=== PATIENT | female | born 1945 | race Caucasian/White ===

== ENCOUNTER 2017-07-15 06:15 | Outpatient (CLI) | payer MEDICARE ==
[~2017-07-15] VITALS: Ht 154.9 cm; Wt 62.6 kg
[2017-07-15] MEDS ORDERED: HYDR25TA4 PO (13:54)
[2017-07-15] MEDS ORDERED: METF1000 PO (13:54)
[2017-07-15] MEDS ORDERED: LOVA40TA2 PO (13:54)
[2017-07-15] MEDS ORDERED: ALEN70TA2 PO (13:54)
[2017-07-15] MEDS ORDERED: METO-387 PO (13:54)
[2017-07-15] MEDS ORDERED: QUIN20TA16 PO (13:54)
== END 2017-07-15 14:00 ==
LOC: PREOP 06:15
PROVIDERS: ATTEND Urology
DX: Z01.818 Encounter for other preprocedural examination (principal); T19.1XXA Foreign body in bladder, initial encounter

== ENCOUNTER 2017-07-22 08:01 | Day surgery (SDC) | payer MEDICARE ==
[~2017-07-22] VITALS: Ht 154.9 cm; Wt 62.6 kg
--- NOTE | 2017-07-22 07:15 | Progress Note-Pre Operative ---
Pre-Operative Progress Note H&P Reviewed The H&P was reviewed, patient examined and no changes noted. Date Seen by Provider: Jul 22, 2017 Time Seen by Provider: : Date H&P Reviewed: Jul 22, 2017 Time H&P Reviewed: : Pre-Operative Diagnosis: FOREIGN BODY BLADDER SALTY WALTON MD Jul 22, 2017 7:15 am
[~2017-07-22 08:01] MED LIST: ALEN70TA2 PO; HYDR25TA4 PO; LOVA40TA2 PO; METF1000 PO; METO-387 PO; QUIN20TA16 PO
[2017-07-22] MEDS ORDERED: METO-370 PO (09:09)
[2017-07-22] MEDS ORDERED: NS (IVPB) 100 ML ONE (09:10)
[2017-07-22] MEDS ORDERED: cefTRIAXone 1 GM (ROCEPHIN) VIAL ONE (09:10)
[2017-07-22] MEDS ORDERED: LACTATED RINGERS 1,000 ML IV PRN (09:11)
[2017-07-22] MEDS ORDERED: cefTRIAXone INJECTION 1,000 MG in NS (IVPB) 100 ML IV ONE (09:15)
[2017-07-22 09:19] VITALS: BP 192/90
--- NOTE | 2017-07-22 09:27 | Progress Note-Post Operative ---
Post-Operative Progess Note Surgeon (s)/Disbursement Clerk (s) Surgeon SALTY WALTON MD Disbursement Clerk: N/A Pre-Operative Diagnosis FOREIGN BODY BLADDER Post-Operative Diagnosis SAME Procedure & Operative Findings Date of Procedure 07/22/17 Procedure Performed/Findings REMOVAL OF FB BLADDER Anesthesia Type GENERAL Estimated Blood Loss Estimated blood loss (mL): N/A Specimens/Packing Specimens Removed SUTURE Packing: N/A SALTY WALTON MD Jul 22, 2017 9:27 am
[2017-07-22] MEDS ORDERED: ONDANSETRON 4 MG/2 ML (SDV) Z0FRAN ONE (09:43)
[2017-07-22] MEDS ORDERED: LIDOCAINE PF 2% 5 ML (XYLOCAINE) VIAL ONE (09:43)
[2017-07-22] MEDS ORDERED: proPOfol 200 MG/20 ML (DIPRIVAN) VIAL IV ONE (09:43)
[2017-07-22] MEDS ORDERED: SEVOFLURANE (ULTANE) 15 ML INHAL SOLN ONE (09:43)
[2017-07-22] MEDS ORDERED: fentaNYL INJECTION 100 MCG/2 ML AMP ONE (09:44)
--- NOTE | 2017-07-22 10:27 | Discharge Inst-Urology ---
Discharge Inst-Urology Discharge Medications New, Converted, or Re-newed RX: RX on Chart Patient Instructions/Follow Up Plan Please make appointment to been seen in office in 4 weeks. Increase oral fluids for 48 hours and then as needed. Diet and Activity as tolerated. If questions or concerns contact your physician Or seek help at emergency department. SALTY WALTON MD Jul 22, 2017 10:27 am
[2017-07-22] MEDS ORDERED: ONDANSETRON 4 MG/2 ML (SDV) Z0FRAN IVP PRN (11:00)
[2017-07-22] MEDS ORDERED: morphine INJ 10 MG/ML 1ML (SYR OR VIAL) IVP PRN (11:00)
[2017-07-22 11:45] VITALS: BP 182/80
[2017-07-22] MEDS ORDERED: NITR-65 PO (12:12)
[2017-07-22 12:15] VITALS: BP 164/84
[2017-07-22 12:45] VITALS: BP 180/91
[2017-07-22 12:47] VITALS: BP 180/91
--- NOTE | 2017-07-22 13:08 | Anesthesia-General Post-Op ---
General Patient Condition Mental Status/LOC: Same as Preop Cardiovascular: Satisfactory Nausea/Vomiting: Absent Respiratory: Satisfactory Pain: Controlled Complications: Absent Post Op Complications Complications None Follow Up Care/Instructions Patient Instructions None needed. Anesthesia/Patient Condition Patient Condition Patient is doing well, no complaints, stable vital signs, no apparent adverse anesthesia problems. No complications reported per nursing. CANDY SMITH CRNA Jul 22, 2017 13:08
--- NOTE | 2017-07-22 14:44 | OPERATIVE REPORT ---
DATE OF SERVICE: 07/22/2017 PREOPERATIVE DIAGNOSIS: Foreign body, bladder. POSTOPERATIVE DIAGNOSIS: Foreign body, bladder. OPERATION PERFORMED: Cystoscopy and removal of foreign body, bladder. SURGEON: Kai Walton MD. ANESTHESIA: General. COMPLICATIONS: None. DESCRIPTION OF PROCEDURE: Under satisfactory general anesthesia, the patient in lithotomy position, genitalia were prepped and draped in the usual sterile fashion. Cystoscope was introduced under vision and again visualized the previous bladder suspension suture in the anterior bladder wall on the right side, which did not protruding through the wall on the lower part. I was able to grab it with a grasping forceps and gently pulled it off completely including the knot. There were no further sutures or foreign body. There was no bleeding. I emptied her bladder. The patient tolerated the procedure and anesthesia well and was sent to recovery room in stable condition. Job ID: [id number] DocumentID: [id number] Dictated Date: 07/22/2017 10:40:19 Billing Machine Operator Date: 07/22/2017 14:43:38 Dictated By: KAI WALTON MD
--- OUTSIDE RECORDS SUMMARY | 2017-07-23 09:10 | XMS REPORT | Clinical Summary ---
Author Author Admin, IMTIAZ Organization [facility] Address Unknown Phone Unavailable Allergies, Adverse Reactions, Alerts Allergy Name Reaction Description Start Date Severity Status Provider No Known Allergies Madiha Melendez MA Conditions or Problems Problem Name Problem Code Onset Date Status Entry Date Provider Comment Standard Description Annotate HYPERTENSION 401.9 Active Nadir Hector MD Unspecified essential hypertension DIABETES MELLITUS 250.00 Active Nadir Hector MD Diabetes mellitus without mention of complication, type II or unspecified type, not stated as uncontrolled HYPERLIPIDEMIA 272.4 Active Nadir Hector MD Other and unspecified hyperlipidemia HEALTH MAINTENANCE EXAM V70.0 Active Nadir Hector MD Routine general medical examination at a [facility] care facility PERIPHERAL NEUROPATHY 356.9 Active Nadir Hector MD Unspecified idiopathic peripheral neuropathy Right foot HEADACHE, CHRONIC 784.0 Active Nadir Hector MD Headache DYSURIA 788.1 Active Nadir Hector MD Dysuria UTI'S, HX OF V13.00 Active Nadir Hector MD Personal history of unspecified urinary disorder MAMMOGRAM, ABNORMAL 793.80 Active Nadir Hector MD Abnormal mammogram, unspecified COLONIC POLYPS, HX OF V12.72 Active Crystal Fernández APRN Personal history of colonic polyps UTERINE PROLAPSE 618.1 Active Catalino Irene MD Uterine prolapse without mention of vaginal wall prolapse U T I-RECURRENT 599.0 Active Catalino Irene MD Urinary tract infection, site not specified 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 Catalino Irene MD Methicillin resistant Staphylococcus aureus infection in conditions classified elsewhere and of unspecified site AFTERCARE FOLLOW SURGERY MUSCULOSKEL SYSTEM NEC V58.78 Active Crystal King CESAR Aftercare following surgery of the musculoskeletal system, NEC HIP PAIN 719.45 Active Nadir Hector MD Pain in joint involving pelvic region and thigh OSTEOARTHRITIS 715.90 Active Nadir Hector MD Osteoarthrosis, unspecified whether generalized or localized, involving unspecified site BACK PAIN 724.5 Active Nadir Hector MD Backache, unspecified Sinusitis 461.9 Active Nadir Hector MD Acute sinusitis, unspecified Menopause, surgical 627.4 Active Jocelyne Fernández Symptomatic states associated with artificial menopause Urinary tract infection, site not specified 599.0 Active Judd Maciel Urinary tract infection, site not specified Medication List Medication Instructions Start Date Stop Date Generic Name NDC Status Provider Patient Instruction BACTRIM DS TABS Take 1 po BID SULFAMETHOXAZOLE- TRIMETHOPRIM TABS 05344840425 Active Pam Gomez LPN Active MACROBID 100 MG CAP 1 cap by mouth twice daily NITROFURANTOIN MONOHYD MACRO 01325853999 No Longer Active Pam Gomez LPN Active DIFLUCAN 150 MG TAB 1 tablet by mouth daily FLUCONAZOLE 11845349474 Active Pam Gomez LPN Active CIPRO 250 MG TAB 1 tablet by mouth twice daily CIPROFLOXACIN HCL 04761317204 No Longer Active Pam Gomez LPN Active JANUVIA 100 MG ORAL TABS 1 daily SITAGLIPTIN PHOSPHATE 75875775802 Active Nadir Hector MD Active GLUCOTROL XL 5 MG [id number] one tablet daily GLIPIZIDE 69478181274 No Longer Active Nadir Hector MD Active BACTRIM DS 800-160 MG TABS 1 po BID x 7 days SULFAMETHOXAZOLE-TRIMETHOPRIM 77478100768 No Longer Active Jamal Burrell MD Active FOSAMAX 70 MG TABS 1 po qweek. Take 30min prior to first food/drink. Avoid lying down x 1 hour. ALENDRONATE SODIUM 51344640575 Active Nadir Hector MD Active AMOXICILLIN 500 MG CAPS 2 po BID x 10 days AMOXICILLIN 61887768022 No Longer Active Nadir Hector MD Active JANUVIA 100 MG TABS 1 tablet by mouth daily SITAGLIPTIN PHOSPHATE 16629994683 No Longer Active Nadir Hector MD Active JANUVIA 100 MG TABS Take 1 tab daily SITAGLIPTIN PHOSPHATE 53066838062 No Longer Active Sharon Nuñez Active MACROBID 100 MG CAP 1 cap by mouth twice daily NITROFURANTOIN MONOHYD MACRO 24874916735 No Longer Active Crystal Fernández APRN Active MACRODANTIN 100 MG CAPS 1 capsule by mouth twice daily for seven days NITROFURANTOIN MACROCRYSTAL 54375693811 No Longer Active Ro Yang RN Active BACTRIM DS 800-160 MG TABS one tablet twice a day for seven days SULFAMETHOXAZOLE-TRIMETHOPRIM 20628236901 No Longer Active HEMANTH Griffin Active BACTRIM DS 800-160 MG TABS TAKE ONE TABLET BY MOUTH TWICE DAILY FOR 7 DAYS SULFAMETHOXAZOLE-TRIMETHOPRIM 01396101812 No Longer Active Viviana Lal RN Active CIPRO 250 MG TABS TAKE ONE TABLET BY MOUTH TWICE DAILY FOR 5 DAYS CIPROFLOXACIN HCL 86061100469 No Longer Active Viviana Lal RN Active FLEXERIL 10 MG TABS 1/2 TO 1 TABLET Q12H NEEDED CYCLOBENZAPRINE HCL 31800444644 No Longer Active Viviana Lal RN Active AMLODIPINE BESYLATE 5 MG TABS 1 1/2 daily AMLODIPINE BESYLATE 25069102562 Active Nadir Hector MD Active ONGLYZA 5 MG TABS 1 QAM SAXAGLIPTIN HCL 57907685536 No Longer Active Nadir Hector MD Active AMLODIPINE BESYLATE 5 MG TABS 1 1/2 TABLET DAILY AMLODIPINE BESYLATE 41314860678 No Longer Active Nadir Hector MD Active LORTAB 5-500 MG TABS 1 BY MOUTH Q6H NEEDED HYDROCODONE- ACETAMINOPHEN 83416106798 No Longer Active Nadir Hector MD Active ACTOS 45 MG TABS 1 QD PIOGLITAZONE HCL 95778800856 No Longer Active Nadir Hector MD Active BACTRIM DS 800-160 MG TAB 1 tab by mouth twice daily TRIMETHOPRIM-SULFAMETHOXAZOLE 19709744809 No Longer Active Nadir Hector MD Active CALCIUM + D 600-200 MG-UNIT TABS 1 TABLET TWO TIMES A DAY CALCIUM CARBONATE-VITAMIN D 63305221813 Active Ro Yang RN Active METOPROLOL SUCCINATE 25 MG [id number] 1 QAM METOPROLOL SUCCINATE 68462964029 Active Nadir Hector MD Active AMARYL 4 MG TABS 1 QD GLIMEPIRIDE 55036436076 Active Nadir Hector MD Active LOVASTATIN 40 MG TABS 1 QD LOVASTATIN 82636852617 Active Nadir Hector MD Active GLUCOPHAGE 1000 MG TABS 1 TABLET TWO TIMES A DAY METFORMIN HCL 10441867123 Active Nadir Hector MD Active MAXZIDE-25 37.5-25 MG TABS 1 QD TRIAMTERENE-HCTZ 17181051044 Active Nadir Hector MD Active ACCUPRIL 40 MG TABS 1 QD QUINAPRIL HCL 32644735118 Active Nadir Hector MD Active BACTRIM DS 800-160 MG TAB 1 tab by mouth twice daily BACTRIM DS 800-160 MG TAB TRIMETHOPRIM-SULFAMETHOXAZOLE Inactive ACTOS 45 MG TABS 1 QD ACTOS 45 MG TABS 135796 PIOGLITAZONE HCL Inactive LORTAB 5-500 MG TABS 1 BY MOUTH Q6H NEEDED LORTAB 5-500 MG TABS HYDROCODONE-ACETAMINOPHEN Inactive AMLODIPINE BESYLATE 5 MG TABS 1 1/2 TABLET DAILY AMLODIPINE BESYLATE 5 MG TABS 299339 AMLODIPINE BESYLATE Inactive ONGLYZA 5 MG TABS 1 QAM ONGLYZA 5 MG TABS SAXAGLIPTIN HCL Inactive FLEXERIL 10 MG TABS 1/2 TO 1 TABLET Q12H NEEDED FLEXERIL 10 MG TABS CYCLOBENZAPRINE HCL Inactive CIPRO 250 MG TABS TAKE ONE TABLET BY MOUTH TWICE DAILY FOR 5 DAYS CIPRO 250 MG TABS 19740413 CIPROFLOXACIN HCL Inactive BACTRIM DS 800-160 MG TABS TAKE ONE TABLET BY MOUTH TWICE DAILY FOR 7 DAYS BACTRIM DS 800-160 MG TABS SULFAMETHOXAZOLE-TRIMETHOPRIM Inactive BACTRIM DS 800-160 MG TABS one tablet twice a day for seven days BACTRIM DS 800-160 MG TABS SULFAMETHOXAZOLE-TRIMETHOPRIM Inactive MACROBID 100 MG CAP 1 cap by mouth twice daily MACROBID 100 MG CAP 382687 NITROFURANTOIN MONOHYD MACRO Inactive JANUVIA 100 MG TABS Take 1 tab daily JANUVIA 100 MG TABS SITAGLIPTIN PHOSPHATE Inactive GLUCOTROL XL 5 MG [id number] one tablet daily GLUCOTROL XL 5 MG [id number] GLIPIZIDE Inactive MACRODANTIN 100 MG CAPS 1 capsule by mouth twice daily for seven days MACRODANTIN 100 MG CAPS 353852 NITROFURANTOIN MACROCRYSTAL Inactive AMOXICILLIN 500 MG CAPS 2 po BID x 10 days AMOXICILLIN 500 MG CAPS 519907 AMOXICILLIN Inactive BACTRIM DS 800-160 MG TABS 1 po BID x 7 days BACTRIM DS 800-160 MG TABS SULFAMETHOXAZOLE-TRIMETHOPRIM Inactive CIPRO 250 MG TAB 1 tablet by mouth twice daily CIPRO 250 MG TAB 19740413 CIPROFLOXACIN HCL Inactive MACROBID 100 MG CAP 1 cap by mouth twice daily MACROBID 100 MG CAP 082165 NITROFURANTOIN MONOHYD MACRO Inactive Advance Directives Directive Description Start Date PERMISSION TO SHARE Immunizations Vaccine Administration Date Value Standard Description pneumococcal immunization administered Pneumovax 23 [CVX33] pneumococcal polysaccharide vaccine, 23 valent Seasonal influenza vaccine, injectable, containing preservative, for > 3 years old (Afluria, FluLaval, Fluzone, Fluvirin, Fluarix, Agriflu(>=18 yo)) Fluzone (>3 yrs.) [IMO003] Influenza, seasonal, injectable Vital Signs Date Name Value Unit Range Description blood pressure, diastolic - 8462-4 72 mm[Hg] BP tyler blood pressure, systolic - 8480-6 177 mm[Hg] BP sys pulse rate E&M - 8867-4 102 /min Heart rate temperature E&M 97.9 [degF] Body temperature weight E&M - 3141-9 157 [lb_av] Weight Measured blood pressure, diastolic - 8462-4 89 mm[Hg] BP tyler blood pressure, systolic - 8480-6 158 mm[Hg] BP sys pulse rate E&M - 8867-4 89 /min Heart rate temperature E&M 98.2 [degF] Body temperature weight E&M - 3141-9 157 [lb_av] Weight Measured Diagnostic Results Date Name Value Unit Range Description Lab Report: CBC, MICROALBUMIN - Chemistry albumin/creatinine ratio, urine 30 - 300 mg/g mg/g{creat} 0-29 Lab Report: CBC, MICROALBUMIN - Hematology leukocyte count, blood 5.8 10^3/MM^3 10*3/mm3 4.6-10.2 erythrocyte (RBC) count 4.43 10^6/MM^3 10*6/mm3 4.04-5.48 hemoglobin, blood 14.1 g/dL 12.0-16.0 hematocrit, blood 42.1 % 36.0-46.0 mean corpuscular volume, RBC 95 fL 80-97 mean corpuscular hemoglobin, RBC 31.7 pg 27.0-31.2 mean corpuscular hemoglobin concentration, RBC 33.4 G/DL % 31.8- 35.4 red blood cell distribution width 13.8 % 11.6-14.8 platelet count 365 10^3/MM^3 10*3/mm3 142-424 Lab Report: CBC, MICROALBUMIN - Lab microalbumin, urine 150 0-19 Lab Report: Comp. Metabolic Panel, HGBA1C - Chemistry sodium, serum 140 mmol/L 616-024 0887/07/23 potassium, serum 4.5 mmol/L 3.5-5.2 chloride, serum 104 mmol/L 98-107 carbon dioxide, venous blood 30.0 mmol/L 21.0-32.0 blood glucose 151 mg/dL 65-110 urea nitrogen, blood 19 mg/dL 7-18 creatinine, serum 0.80 mg/dL 0.60-1.30 alanine aminotransferase (SGPT), serum 34 U/L 12-78 aspartate aminotransferase (SGOT), serum 18 U/L 15-37 alkaline phosphatase, serum 133 U/L 50-136 calcium, serum 9.4 mg/dL 8.5-10.1 bilirubin, serum, total 0.20 mg/dL 0.00-1.00 hemoglobin A1C, blood, as % of total hemoglobin 7.2 % 4.3-6.0 Lab Report: HGBA1C - Chemistry hemoglobin A1C, blood, as % of total hemoglobin 7.0 % 4.3-6.0 hemoglobin A1C, blood, as % of total hemoglobin 7.7 % 4.3-6.0 hemoglobin A1C, blood, as % of total hemoglobin 7.1 % 4.3-6.0 Lab Report: UADIP W/MICRO, AUTO - Chemistry RBC, urine, dipstick 1+ Negative protein, total urine random Trace mg/dL Negative RBC, urine, dipstick 3+ Negative protein, total urine random 3+ mg/dL Negative protein, total urine random 2+ mg/dL Negative protein, total urine random 2+ mg/dL Negative RBC, urine, dipstick 1+ Negative RBC, urine, dipstick 3+ Negative Lab Report: UADIP W/MICRO, AUTO - Urinalysis urobilinogen, urine, semiquantitative (dipstick) 0.2 Normal leukocyte esterase, urine, by dipstick 2+ Negative nitrite, urine, semiquantitative Negative Negative urobilinogen, urine, semiquantitative (dipstick) 0.2 Normal leukocyte esterase, urine, by dipstick 1+ Negative nitrite, urine, semiquantitative Positive Negative glucose, urine, semiquantitative Negative Negative ketones, urine, by test strip Trace Negative bilirubin, urine Negative Negative urine color Yellow Colorless;Lightyellow;Straw;Yellow appearance, urine SlCloudy Clear specific gravity, urine 1.025 1.000-1.030 pH, urine, semiquantitative 6.0 5.0-8.5 glucose, urine, semiquantitative Negative Negative ketones, urine, by test strip Negative Negative bilirubin, urine Negative Negative glucose, urine, semiquantitative Negative Negative ketones, urine, by test strip Negative Negative bilirubin, urine Negative Negative urobilinogen, urine, semiquantitative (dipstick) 0.2 Normal leukocyte esterase, urine, by dipstick 3+ Negative nitrite, urine, semiquantitative Negative Negative urine color Yellow Colorless;Lightyellow;Straw;Yellow appearance, urine Cloudy Clear specific gravity, urine 1.025 1.000-1.030 pH, urine, semiquantitative 6.0 5.0-8.5 glucose, urine, semiquantitative Negative Negative ketones, urine, by test strip Negative Negative bilirubin, urine Negative Negative urine color Yellow Colorless;Lightyellow;Straw;Yellow appearance, urine Clear Clear specific gravity, urine 1.025 1.000-1.030 pH, urine, semiquantitative 6.0 5.0-8.5 urobilinogen, urine, semiquantitative (dipstick) 0.2 Normal leukocyte esterase, urine, by dipstick Trace Negative nitrite, urine, semiquantitative Negative Negative urine color Light yellow Colorless;Lightyellow;Straw;Yellow appearance, urine Cloudy Clear specific gravity, urine 1.030 1.000-1.030 pH, urine, semiquantitative 6.5 5.0-8.5 Encounters Code Encounter Date Provider Facility CPT-03260 Level 3 Est. Patient 16:43:04 [employer] AR[employer] Nadir Hector MD [facility] CPT-66343 Level 4 Est. Patient 14:21:01 [employer] Nadir Hector MD [facility] CPT-53017 Level 3 Est. Patient 16:41:34 CDT Nadir Hector MD [facility] CPT-66714 Level 4 Est. Patient 13:54:35 [employer] Nadir Hector MD [facility] CPT-24557 Level 3 Est. Patient 15:51:21 CDT Nadir Hector MD [facility] CPT-66382 Level 4 New Patient 15:58:26 CDT Catalino Irene MD [facility] CPT-06938 Level 4 Est. Patient 15:42:38 [employer] Nadir Hector MD [facility] Procedures Code Procedure Name Date Entry Date Standard Description CPT-000 Give Pneumovax 14:21:01 [employer] CPT-000 Give Appropriate Flu Vaccine 14:21:01 [employer] CPT-58410 Bone Density 08:41:23 [employer] CPT-000 Give Appropriate Flu Vaccine 13:54:35 [employer] CPT-000 Give Pneumovax 13:54:35 [employer] CPT-11306 Administration 2+ single or combination vaccines inc oral 14:01:24 [employer] CPT-59735 Administration single or combination vaccine inc oral 14 :01:24 [employer] CPT-83692 Influenza High Dose age 65+ 14:01:24 [employer] CPT-76632 Pneumovax 14:01:24 [employer] CPT-41174 Venipuncture Draw Fee 10:36:48 CDT CPT-000 Give Appropriate Flu Vaccine 15:20:11 [employer] CPT-28187 Administration single or combination vaccine inc oral 15 :50:33 [employer] CPT-06581 Influenza High Dose age 65+ 15:50:33 [employer] CPT-61859 LS spine AP and Lat 15:30:05 [employer] CPT-69876 Hip comp min 2V 15:30:05 [employer] CPT-98428 Postop F/U Visit 17:28:18 CDT CPT-OV Office Visit 15:04:38 CDT CPT-75408 Bladder Scan 15:58:26 CDT CPT-80282 Cystoscopy 15:58:26 CDT CPT-OV Office Visit 16:15:09 CDT CPT-000 Give Appropriate Flu Vaccine 16:33:10 [employer] CPT-17858 Administration single or combination vaccine inc oral 19 :21:12 [employer] CPT-50443 Influenza split virus > age 3 19:21:12 [employer]
--- OUTSIDE RECORDS SUMMARY | 2017-07-23 09:11 | XMS REPORT | Clinical Summary ---
Author Author Admin, IMTIAZ Organization [facility] Address Unknown Phone Unavailable Allergies, Adverse Reactions, Alerts Allergy Name Reaction Description Start Date Severity Status Provider No Known Allergies Pam Gomez LPN Conditions or Problems Problem Name Problem Code [...] MD Routine general medical examination at a health care facility PERIPHERAL NEUROPATHY 356.9 Active Nadir [...] SURGERY MUSCULOSKEL SYSTEM NEC V58.78 Active Crystal Fernández APRN Aftercare following surgery of the musculoskeletal system, NEC HIP PAIN 719.45 Active Nadir Hector MD Pain in joint involving pelvic region and thigh OSTEOARTHRITIS 715.90 Active Nadir Hector MD Osteoarthrosis, unspecified whether generalized or localized, involving unspecified site BACK PAIN 724.5 Active Nadir Hector MD Backache, unspecified Sinusitis 461.9 Active Nadir Hector MD Acute sinusitis, unspecified Menopause, surgical 627.4 Active [facility] Symptomatic states associated with artificial menopause Urinary tract infection, site not specified 599.[address] Urinary tract infection, site not specified Bladder Prolapse 596.9 Active Catalino Irene MD Unspecified disorder of bladder U T I-Recurrent 599.0 Active Catalino Irene MD Urinary tract infection, site not specified Incomplete Bladder Emptying 788.21 Active Catalino Irene MD Incomplete bladder emptying Hematuria 599.70 Active Catalino Irene MD Hematuria, unspecified Medication List Medication Instructions Start Date Stop Date Generic Name NDC Status Provider Patient Instruction DIFLUCAN 150 MG TAB 1 tablet by mouth daily FLUCONAZOLE 64502207986 No Longer Active Nadir Hector MD Active BACTRIM DS 800-160 MG ORAL TABS 1 BID for 5 days SULFAMETHOXAZOLE-TRIMETHOPRIM 11515552881 No Longer Active Nadir Hector MD Active CIPRO 250 MG TAB 1 tablet by mouth twice daily CIPROFLOXACIN HCL 05971502136 No Longer Active Ro Meyer Active AMOXICILLIN 500 MG ORAL CAPS tid AMOXICILLIN 98402827692 No Longer Active Catalino Irene MD Active BACTRIM DS TABS Take 1 po BID SULFAMETHOXAZOLE- TRIMETHOPRIM TABS 16602781051 No Longer Active Pam Gomez LPN Active MACROBID 100 MG CAP 1 cap by mouth twice daily NITROFURANTOIN MONOHYD MACRO 76102125828 No Longer Active Pam Gomez LPN Active CIPRO 250 MG TAB 1 tablet by mouth twice daily CIPROFLOXACIN HCL 74011587835 No Longer Active Pam Gomez LPN Active JANUVIA 100 MG ORAL TABS 1 daily SITAGLIPTIN PHOSPHATE 45842609599 Active Nadir Hector MD Active GLUCOTROL XL 5 MG [id number] one tablet daily GLIPIZIDE 23825239105 No Longer Active Nadir Hector MD Active BACTRIM DS 800-160 MG TABS 1 po BID x 7 days SULFAMETHOXAZOLE-TRIMETHOPRIM 52955206271 No Longer Active Jamal Burrell MD Active FOSAMAX 70 MG TABS 1 po qweek. Take 30min prior to first food/drink. Avoid lying down x 1 hour. ALENDRONATE SODIUM 64759549790 Active Nadir Hector MD Active AMOXICILLIN 500 MG CAPS 2 po BID x 10 days AMOXICILLIN 37188655925 No Longer Active Nadir Hector MD Active JANUVIA 100 MG TABS 1 tablet by mouth daily SITAGLIPTIN PHOSPHATE 28640730087 No Longer Active Nadir Hector MD Active JANUVIA 100 MG TABS Take 1 tab daily SITAGLIPTIN PHOSPHATE 34383071979 No Longer Active Sharon Nuñez Active MACROBID 100 MG CAP 1 cap by mouth twice daily NITROFURANTOIN MONOHYD MACRO 10934844989 No Longer Active Crystal Fernández APRN Active MACRODANTIN 100 MG CAPS 1 capsule by mouth twice daily for seven days NITROFURANTOIN MACROCRYSTAL 01715757140 No Longer Active Ro Trey RN Active BACTRIM DS 800-160 MG TABS one tablet twice a day for seven days SULFAMETHOXAZOLE-TRIMETHOPRIM 63071454253 No Longer Active HEMANTH Griffin Active BACTRIM DS 800-160 MG TABS TAKE ONE TABLET BY MOUTH TWICE DAILY FOR 7 DAYS SULFAMETHOXAZOLE-TRIMETHOPRIM 32097330099 No Longer Active Viviana Lal RN Active CIPRO 250 MG TABS TAKE ONE TABLET BY MOUTH TWICE DAILY FOR 5 DAYS CIPROFLOXACIN HCL 58502597674 No Longer Active Viviana Lal RN Active FLEXERIL 10 MG TABS 1/2 TO 1 TABLET Q12H NEEDED CYCLOBENZAPRINE HCL 83947742016 No Longer Active Viviana Lal RN Active AMLODIPINE BESYLATE 5 MG TABS 1 1/2 daily AMLODIPINE BESYLATE 70465891567 Active Nadir Hector MD Active ONGLYZA 5 MG TABS 1 QAM SAXAGLIPTIN HCL 34843726067 No Longer Active Nadir Hector MD Active AMLODIPINE BESYLATE 5 MG TABS 1 1/2 TABLET DAILY AMLODIPINE BESYLATE 48376998750 No Longer Active Nadir Hector MD Active LORTAB 5-500 MG TABS 1 BY MOUTH Q6H NEEDED HYDROCODONE- ACETAMINOPHEN 00376429761 No Longer Active Nadir Hector MD Active ACTOS 45 MG TABS 1 QD PIOGLITAZONE HCL 24525828580 No Longer Active Nadir Hector MD Active BACTRIM DS 800-160 MG TAB 1 tab by mouth twice daily TRIMETHOPRIM-SULFAMETHOXAZOLE 36485177064 No Longer Active Nadir Hector MD Active CALCIUM + D 600-200 MG-UNIT TABS 1 TABLET TWO TIMES A DAY CALCIUM CARBONATE-VITAMIN D 78811452865 Active Ro Yang RN Active METOPROLOL SUCCINATE 25 MG [id number] 1 QAM METOPROLOL SUCCINATE 84307227925 Active Nadir Hector MD Active AMARYL 4 MG TABS 1 QD GLIMEPIRIDE 14441108263 Active Nadir Hector MD Active LOVASTATIN 40 MG TABS 1 QD LOVASTATIN 66277693882 Active Nadir Hector MD Active GLUCOPHAGE 1000 MG TABS 1 TABLET TWO TIMES A DAY METFORMIN HCL 28128819360 Active Nadir Hector MD Active MAXZIDE-25 37.5-25 MG TABS 1 QD TRIAMTERENE-HCTZ 34946500266 Active Nadir Hector MD Active ACCUPRIL 40 MG TABS 1 QD QUINAPRIL HCL 45298382491 Active Nadir Hector MD Active BACTRIM DS 800-160 MG TAB 1 tab by mouth twice daily BACTRIM DS 800-160 MG TAB TRIMETHOPRIM-SULFAMETHOXAZOLE Inactive ACTOS 45 MG TABS 1 QD ACTOS 45 MG TABS 956076 PIOGLITAZONE HCL Inactive LORTAB 5-500 MG TABS 1 BY MOUTH Q6H NEEDED LORTAB 5-500 MG TABS HYDROCODONE-ACETAMINOPHEN Inactive AMLODIPINE BESYLATE 5 MG TABS 1 1/2 TABLET DAILY AMLODIPINE BESYLATE 5 MG TABS 088083 AMLODIPINE BESYLATE Inactive ONGLYZA 5 MG TABS 1 QAM ONGLYZA 5 MG TABS SAXAGLIPTIN HCL Inactive FLEXERIL 10 MG TABS 1/2 TO 1 TABLET Q12H NEEDED FLEXERIL 10 MG TABS CYCLOBENZAPRINE HCL Inactive CIPRO 250 MG TABS TAKE ONE TABLET BY MOUTH TWICE DAILY FOR 5 DAYS CIPRO 250 MG TABS 023420 CIPROFLOXACIN HCL Inactive BACTRIM DS 800-160 MG TABS TAKE ONE TABLET BY MOUTH TWICE DAILY FOR 7 DAYS BACTRIM DS 800-160 MG TABS SULFAMETHOXAZOLE-TRIMETHOPRIM Inactive BACTRIM DS 800-160 MG TABS one tablet twice a day for seven days BACTRIM DS 800-160 MG TABS SULFAMETHOXAZOLE-TRIMETHOPRIM Inactive MACROBID 100 MG CAP 1 cap by mouth twice daily MACROBID 100 MG CAP 8129822 NITROFURANTOIN MONOHYD MACRO Inactive JANUVIA 100 MG TABS Take 1 tab daily JANUVIA 100 MG TABS SITAGLIPTIN PHOSPHATE Inactive GLUCOTROL XL 5 MG [id number] one tablet daily GLUCOTROL XL 5 MG [id number] GLIPIZIDE Inactive BACTRIM DS 800-160 MG ORAL TABS 1 BID for 5 days BACTRIM DS 800-160 MG ORAL TABS SULFAMETHOXAZOLE-TRIMETHOPRIM Inactive DIFLUCAN 150 MG TAB 1 tablet by mouth daily DIFLUCAN 150 MG TAB 676966 FLUCONAZOLE Inactive MACRODANTIN 100 MG CAPS 1 capsule by mouth twice daily for seven days MACRODANTIN 100 MG CAPS 2815300 NITROFURANTOIN MACROCRYSTAL Inactive AMOXICILLIN 500 MG CAPS 2 po BID x 10 days AMOXICILLIN 500 MG CAPS 020343 AMOXICILLIN Inactive BACTRIM DS 800-160 MG TABS 1 po BID x 7 days BACTRIM DS 800-160 MG TABS SULFAMETHOXAZOLE-TRIMETHOPRIM Inactive CIPRO 250 MG TAB 1 tablet by mouth twice daily CIPRO 250 MG TAB 672489 CIPROFLOXACIN HCL Inactive MACROBID 100 MG CAP 1 cap by mouth twice daily MACROBID 100 MG CAP 1319464 NITROFURANTOIN MONOHYD MACRO Inactive BACTRIM DS TABS Take 1 po BID BACTRIM DS TABS SULFAMETHOXAZOLE-TRIMETHOPRIM TABS Inactive AMOXICILLIN 500 MG ORAL CAPS tid AMOXICILLIN 500 MG ORAL CAPS 033983 AMOXICILLIN Inactive CIPRO 250 MG TAB 1 tablet by mouth twice daily CIPRO 250 MG TAB 163444 CIPROFLOXACIN HCL Inactive Advance Directives Directive Description Start Date PERMISSION TO SHARE Immunizations Vaccine Administration Date Value Standard Description pneumococcal immunization administered Pneumovax 23 [CVX33] pneumococcal polysaccharide vaccine, 23 valent Seasonal influenza vaccine, injectable, containing preservative, for > 3 years old (Afluria, FluLaval, Fluzone, Fluvirin, Fluarix, Agriflu(>=18 yo)) Fluzone (>3 yrs.) [SJH074] Influenza, seasonal, injectable Vital Signs Date Name Value Unit Range Description blood pressure, diastolic - 8462-4 76 mm[Hg] BP tyler blood pressure, systolic - 8480-6 133 mm[Hg] BP sys pulse rate E&M - 8867-4 79 /min Heart rate temperature E&M 97.8 [degF] Body temperature weight E&M - 3141-9 162.2 [lb_av] Weight Measured blood pressure, diastolic - 8462-4 75 mm[Hg] BP tyler blood pressure, systolic - 8480-6 146 mm[Hg] BP sys temperature E&M 97.7 [degF] Body temperature weight E&M - 3141-9 157 [lb_av] Weight Measured blood pressure, diastolic - 8462-4 72 mm[Hg] [...] Name Value Unit Range Description Lab Report: Basic Metabolic Panel - Chemistry sodium, serum 138 mmol/L 511-720 3384/07/02 potassium, serum 4.5 mmol/L 3.5-5.2 chloride, serum 101 mmol/L 98-107 carbon dioxide, venous blood 29.1 mmol/L 21.0-32.0 blood glucose 89 mg/dL 65-110 calcium, serum 9.7 mg/dL 8.5-10.1 urea nitrogen, blood 18 mg/dL 7-18 creatinine, serum 0.90 mg/dL 0.60-1.30 Lab Report: CBC, MICROALBUMIN - Chemistry albumin/creatinine [...] Lab microalbumin, urine 150 0-19 Lab Report: HGBA1C - Chemistry hemoglobin A1C, blood, as % of total hemoglobin 7.0 % 4.3-6.0 hemoglobin A1C, blood, as % of total hemoglobin 7.7 % 4.3-6.0 hemoglobin A1C, blood, as % of total hemoglobin 7.1 % 4.3-6.0 Lab Report: Lipid Panel, Comp. Metabolic Panel, HGBA1C - Chemistry cholesterol, serum 147 mg/dL 889-671 2968/08/18 triglyceride, serum, fasting 242 mg/dL 30-200 HDL cholesterol, serum 36 mg/dL 32-96 LDL cholesterol, serum 63 mg/dL 0-130 sodium, serum 137 mmol/L 914-793 2501/08/18 potassium, serum 4.7 mmol/L 3.5-5.2 chloride, serum 102 mmol/L 98-107 carbon dioxide, venous blood 28.5 mmol/L 21.0-32.0 blood glucose 131 mg/dL 65-110 urea nitrogen, blood 17 mg/dL 7-18 creatinine, serum 0.90 mg/dL 0.60-1.30 alanine aminotransferase (SGPT), serum 26 U/L 12-78 aspartate aminotransferase (SGOT), serum 18 U/L 15-37 calcium, serum 9.4 mg/dL 8.5-10.1 bilirubin, serum, total 0.30 mg/dL 0.00-1.00 hemoglobin A1C, blood, as % of total hemoglobin 7.0 % 4.3-6.0 Lab Report: UADIP (AUTO) - Chemistry protein, total urine random 3+ mg/dL Negative RBC, urine, dipstick 3+ Negative Lab Report: UADIP (AUTO) - Urinalysis urobilinogen, urine, semiquantitative (dipstick) 0.2 Normal leukocyte esterase, urine, by dipstick 3+ Negative nitrite, urine, semiquantitative Negative Negative glucose, urine, semiquantitative Negative Negative ketones, urine, by test strip Negative Negative bilirubin, urine Negative Negative urine color Straw Colorless;Lightyellow;Straw;Yellow appearance, urine Cloudy Clear specific gravity, urine 1.025 1.000-1.030 pH, urine, semiquantitative 6.0 5.0-8.5 Lab Report: UADIP W/MICRO, AUTO - Chemistry protein, total urine random 2+ mg/dL Negative RBC, urine, dipstick 3+ Negative protein, total urine random 1+ mg/dL Negative RBC, urine, dipstick 2+ Negative protein, total urine random 2+ mg/dL Negative RBC, urine, dipstick 2+ Negative protein, total urine random 3+ mg/dL Negative RBC, urine, dipstick 3+ Negative RBC, urine, dipstick 3+ Negative protein, total urine random 2+ mg/dL Negative protein, total urine random 2+ mg/dL Negative RBC, urine, dipstick 1+ Negative protein, total urine random Trace mg/dL Negative RBC, urine, dipstick 1+ Negative Lab Report: UADIP W/MICRO, AUTO - Urinalysis urobilinogen, urine, semiquantitative (dipstick) 0.2 Normal leukocyte esterase, urine, by dipstick Trace Negative nitrite, urine, semiquantitative Negative Negative glucose, urine, semiquantitative Negative Negative ketones, urine, by test strip Negative Negative bilirubin, urine Negative Negative urobilinogen, urine, semiquantitative (dipstick) 0.2 Normal leukocyte esterase, urine, by dipstick 1+ Negative nitrite, urine, semiquantitative Positive Negative urine color Yellow Colorless;Lightyellow;Straw;Yellow appearance, urine [...] Negative bilirubin, urine Negative Negative urine color Light yellow Colorless;Lightyellow;Straw;Yellow appearance, urine Cloudy Clear specific gravity, urine 1.030 1.000-1.030 pH, urine, semiquantitative 6.5 5.0-8.5 urobilinogen, urine, semiquantitative (dipstick) 0.2 Normal leukocyte esterase, urine, by dipstick Negative Negative nitrite, urine, semiquantitative Negative Negative glucose, urine, semiquantitative Negative Negative ketones, urine, by test strip Negative Negative bilirubin, urine Negative Negative urobilinogen, urine, semiquantitative (dipstick) 0.2 Normal leukocyte esterase, urine, by dipstick 1+ Negative nitrite, urine, semiquantitative Negative Negative glucose, urine, semiquantitative Negative Negative ketones, urine, by test strip Negative Negative bilirubin, urine Negative Negative urine color Yellow Colorless;Lightyellow;Straw;Yellow appearance, urine Clear Clear specific gravity, urine 1.020 1.000-1.030 pH, urine, semiquantitative 5.5 5.0-8.5 urobilinogen, urine, semiquantitative (dipstick) 0.2 Normal leukocyte esterase, urine, by dipstick Trace Negative nitrite, urine, semiquantitative Negative Negative urine color Yellow Colorless;Lightyellow;Straw;Yellow appearance, urine SlCloudy Clear specific gravity, urine 1.020 1.000-1.030 pH, urine, semiquantitative 6.0 5.0-8.5 glucose, urine, semiquantitative Negative Negative ketones, urine, by test strip Negative Negative bilirubin, urine Negative Negative urine color Yellow Colorless;Lightyellow;Straw;Yellow appearance, urine SlCloudy Clear specific gravity, urine 1.025 1.000-1.030 pH, urine, semiquantitative 5.5 5.0-8.5 Office Visit: CN recurrent UTI - Chemistry RBC, urine, dipstick 3+ protein, total urine random 4+ mg/dL Office Visit: CN recurrent UTI - Urinalysis pH, urine, semiquantitative 6.5 specific gravity, urine 1.015 glucose, urine, semiquantitative negative urinalysis, routine Clean Catch urine color red appearance, urine cloudy leukocyte esterase, urine, by dipstick 3+ nitrite, urine, semiquantitative negative urobilinogen, urine, semiquantitative (dipstick) 0.2 Encounters Code Encounter Date Provider Facility CPT-58785 Level 4 Est. Patient 09:54:20 CDT Nadir Hector MD [facility] CPT-51791 Level 2 Est. Patient 18:56:33 CDT Catalino Irene MD [facility] CPT-97994 Level 4 New Patient 14:59:23 CDT Catalino Irene MD [facility] CPT-41619 Level 3 Est. Patient 16:43:04 [employer] Nadir Hector MD [facility] CPT-56061 Level 4 Est. Patient 14:21:01 [employer] Nadir Hector MD [facility] CPT-35599 Level 3 Est. Patient 16:41:34 CDT Nadir Hector MD [facility] CPT-52506 Level 4 Est. Patient 13:54:35 [employer] Nadir Hector MD [facility] CPT-66821 Level 3 Est. Patient 15:51:21 CDT Nadir Hector MD [facility] CPT-53458 Level 4 New Patient 15:58:26 CDT Catalino Irene MD [facility] CPT-53803 Level 4 Est. Patient 15:42:38 [employer] Nadir Hector MD [facility] Procedures Code Procedure Name Date Entry Date Standard Description CPT-81237 Urine Dip (Floor Use Only) 18:56:34 CDT CPT-79264 Urine Dip (Floor Use Only) 14:21:22 CDT CPT-J0561 Bicillin LA 1,200,000 u (PCN G Benzathine) 13:16:19 CDT CPT-27691 Abx/Therapy Injection 13:16:19 CDT CPT-93626 Urine Dip (Floor Use Only) 14:59:25 CDT CPT-23112 Bladder Scan 14:59:24 CDT CPT-51454 Cystoscopy 14:59:24 CDT CPT-37760 Abd single AP View 12:13:13 CDT CPT-000 Give Pneumovax 14:21:01 [employer] CPT-000 Give Appropriate Flu Vaccine 14:21:01 [employer] CPT-59308 Bone Density 08:41:23 [employer] CPT-000 Give Appropriate Flu Vaccine 13:54:35 [employer] CPT-000 Give Pneumovax 13:54:35 [employer] CPT-92624 Administration 2+ single or combination vaccines inc oral 14:01:24 [employer] CPT-63656 Administration single or combination vaccine inc oral 14 :01:24 [employer] CPT-69596 Influenza High Dose age 65+ 14:01:24 [employer] CPT-39292 Pneumovax 14:01:24 [employer] CPT-43771 Venipuncture Draw Fee 10:36:48 CDT CPT-000 Give Appropriate Flu Vaccine 15:20:11 [employer] CPT-96744 Administration single or combination vaccine inc oral 15 :50:33 [employer] CPT-92833 Influenza High Dose age 65+ 15:50:33 [employer] CPT-98841 LS spine AP and Lat 15:30:05 [employer] CPT-53123 Hip comp min 2V 15:30:05 [employer] CPT-86991 Postop F/U Visit 17:28:18 CDT CPT-OV Office Visit 15:04:38 CDT CPT-81341 Bladder Scan 15:58:26 CDT CPT-48982 Cystoscopy 15:58:26 CDT CPT-OV Office Visit 16:15:09 CDT CPT-000 Give Appropriate Flu Vaccine 16:33:10 [employer] CPT-45600 Administration single or combination vaccine inc oral 19 :21:12 [employer] CPT-81680 Influenza split virus > age 3 19:21:12 WASH [employer] LE[employer]ER
--- OUTSIDE RECORDS SUMMARY | 2017-07-23 09:11 | XMS REPORT | Clinical Summary ---
Author Author Admin, [employer] Organization [employer] Address Unknown Phone Unavailable Allergies, Adverse Reactions, Alerts Allergy Name Reaction Description Start Date Severity Status Provider No Known Allergies HEMANTH Patel Conditions or Problems Problem Name Problem Code [...] MD Routine general medical examination at a [facility] facility PERIPHERAL NEUROPATHY 356.9 Active Nadir Hector MD Unspecified hereditary and idiopathic peripheral neuropathy Right foot HEADACHE, CHRONIC [...] sinusitis, unspecified Menopause, surgical 627.4 Active Jocelyne Pradeep Symptomatic states associated with artificial menopause Urinary [...] 599.70 Active Catalino Irene MD Hematuria, unspecified 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 Catalino Irene MD Abdominal or pelvic swelling, mass, or lump, unspecified site Anemia 285.9 Active Catalino Irene MD Anemia, unspecified Medication List Medication Instructions Start Date Stop Date Generic Name NDC Status Provider Patient Instruction DIFLUCAN 150 MG TAB 1 tablet by mouth daily FLUCONAZOLE 16546940475 No Longer Active Nadir Hector MD Active BACTRIM DS 800-160 MG ORAL TABS 1 BID for 5 days SULFAMETHOXAZOLE-TRIMETHOPRIM 82600118457 No Longer Active Nadir Hector MD Active CIPRO 250 MG TAB 1 tablet by mouth twice daily CIPROFLOXACIN HCL 34207234399 No Longer Active Ro Buck Active AMOXICILLIN 500 MG ORAL CAPS tid AMOXICILLIN 81763293580 No Longer Active Catalino Irene MD Active BACTRIM DS TABS Take 1 po BID SULFAMETHOXAZOLE- TRIMETHOPRIM TABS 33432005604 No Longer Active Pam Gomez LPN Active MACROBID 100 MG CAP 1 cap by mouth twice daily NITROFURANTOIN MONOHYD MACRO 53971469100 No Longer Active Pam Gomez LPN Active CIPRO 250 MG TAB 1 tablet by mouth twice daily CIPROFLOXACIN HCL 07277986244 No Longer Active Pam Gomez LPN Active JANUVIA 100 MG ORAL TABS 1 daily SITAGLIPTIN PHOSPHATE 03174204930 Active Nadir Hector MD Active GLUCOTROL XL 5 MG [id number] one tablet daily GLIPIZIDE 65296802735 No Longer Active Nadir Hector MD Active BACTRIM DS 800-160 MG TABS 1 po BID x 7 days SULFAMETHOXAZOLE-TRIMETHOPRIM 63582061169 No Longer Active Jamal Burrell MD Active FOSAMAX 70 MG TABS 1 po qweek. Take 30min prior to first food/drink. Avoid lying down x 1 hour. ALENDRONATE SODIUM 32894341914 Active Ndair Hector MD Active AMOXICILLIN 500 MG CAPS 2 po BID x 10 days AMOXICILLIN 62506950236 No Longer Active Nadir Hector MD Active JANUVIA 100 MG TABS 1 tablet by mouth daily SITAGLIPTIN PHOSPHATE 25578055473 No Longer Active Nadir Hector MD Active JANUVIA 100 MG TABS Take 1 tab daily SITAGLIPTIN PHOSPHATE 64490524401 No Longer Active Sharon Nuñez Active MACROBID 100 MG CAP 1 cap by mouth twice daily NITROFURANTOIN MONOHYD MACRO 34536514605 No Longer Active Crystal Fernández CESAR Active MACRODANTIN 100 MG CAPS 1 capsule by mouth twice daily for seven days NITROFURANTOIN MACROCRYSTAL 22088962999 No Longer Active Ro Yang RN Active BACTRIM DS 800-160 MG TABS one tablet twice a day for seven days SULFAMETHOXAZOLE-TRIMETHOPRIM 26802694261 No Longer Active HEMANTH Griffin Active BACTRIM DS 800-160 MG TABS TAKE ONE TABLET BY MOUTH TWICE DAILY FOR 7 DAYS SULFAMETHOXAZOLE-TRIMETHOPRIM 44453084048 No Longer Active Viviana Lal RN Active CIPRO 250 MG TABS TAKE ONE TABLET BY MOUTH TWICE DAILY FOR 5 DAYS CIPROFLOXACIN HCL 28954238065 No Longer Active Viviana Lal RN Active FLEXERIL 10 MG TABS 1/2 TO 1 TABLET Q12H NEEDED CYCLOBENZAPRINE HCL 13078314404 No Longer Active Viviana Lal RN Active AMLODIPINE BESYLATE 5 MG TABS 1 1/2 daily AMLODIPINE BESYLATE 13390071975 Active Nadir Hector MD Active ONGLYZA 5 MG TABS 1 QAM SAXAGLIPTIN HCL 67843611334 No Longer Active Nadir Hector MD Active AMLODIPINE BESYLATE 5 MG TABS 1 1/2 TABLET DAILY AMLODIPINE BESYLATE 64178533321 No Longer Active Nadir Hector MD Active LORTAB 5-500 MG TABS 1 BY MOUTH Q6H NEEDED HYDROCODONE- ACETAMINOPHEN 01731727105 No Longer Active Nadir Hector MD Active ACTOS 45 MG TABS 1 QD PIOGLITAZONE HCL 63387480284 No Longer Active Nadir Hector MD Active BACTRIM DS 800-160 MG TAB 1 tab by mouth twice daily TRIMETHOPRIM-SULFAMETHOXAZOLE 28248977359 No Longer Active Nadir Hector MD Active CALCIUM + D 600-200 MG-UNIT TABS 1 TABLET TWO TIMES A DAY CALCIUM CARBONATE-VITAMIN D 83682304842 Active Ro Yang RN Active METOPROLOL SUCCINATE 25 MG [id number] 1 QAM METOPROLOL SUCCINATE 89208190060 Active Nadir Hector MD Active AMARYL 4 MG TABS 1 QD GLIMEPIRIDE 26158612554 Active Nadir Hector MD Active LOVASTATIN 40 MG TABS 1 QD LOVASTATIN 68968361100 Active Nadir Hector MD Active GLUCOPHAGE 1000 MG TABS 1 TABLET TWO TIMES A DAY METFORMIN HCL 89211157299 Active Nadir Hector MD Active MAXZIDE-25 37.5-25 MG TABS 1 QD TRIAMTERENE-HCTZ 99337015394 Active Nadir Hector MD Active ACCUPRIL 40 MG TABS 1 QD QUINAPRIL HCL 85666749257 Active Nadir Hector MD Active BACTRIM DS 800-160 MG TAB 1 tab by mouth twice daily BACTRIM DS 800-160 MG TAB 19820615 TRIMETHOPRIM-SULFAMETHOXAZOLE Inactive ACTOS 45 MG TABS 1 QD ACTOS 45 MG TABS 160720 PIOGLITAZONE HCL Inactive LORTAB 5-500 MG TABS 1 BY MOUTH Q6H NEEDED LORTAB 5-500 MG TABS HYDROCODONE-ACETAMINOPHEN Inactive AMLODIPINE BESYLATE 5 MG TABS 1 1/2 TABLET DAILY AMLODIPINE BESYLATE 5 MG TABS 862995 AMLODIPINE BESYLATE Inactive ONGLYZA 5 MG TABS [...] 7 DAYS BACTRIM DS 800-160 MG TABS 19820615 SULFAMETHOXAZOLE-TRIMETHOPRIM Inactive BACTRIM DS 800-160 MG TABS one tablet twice a day for seven days BACTRIM DS 800-160 MG TABS 19820615 SULFAMETHOXAZOLE-TRIMETHOPRIM Inactive MACROBID 100 MG CAP 1 cap by mouth twice daily MACROBID 100 MG CAP 0384115 NITROFURANTOIN MONOHYD MACRO Inactive JANUVIA 100 MG TABS Take 1 tab daily JANUVIA 100 MG TABS SITAGLIPTIN PHOSPHATE Inactive GLUCOTROL XL 5 MG [id number] one tablet daily GLUCOTROL XL 5 MG [id number] GLIPIZIDE Inactive BACTRIM DS 800-160 MG ORAL TABS 1 BID for 5 days BACTRIM DS 800-160 MG ORAL TABS 19820615 SULFAMETHOXAZOLE-TRIMETHOPRIM Inactive DIFLUCAN 150 MG TAB 1 tablet by mouth daily DIFLUCAN 150 MG TAB 948185 FLUCONAZOLE Inactive MACRODANTIN 100 MG CAPS 1 capsule by mouth twice daily for seven days MACRODANTIN 100 MG CAPS 5652723 NITROFURANTOIN MACROCRYSTAL Inactive AMOXICILLIN 500 MG CAPS 2 po BID x 10 days AMOXICILLIN 500 MG CAPS 740929 AMOXICILLIN Inactive BACTRIM DS 800-160 MG TABS 1 po BID x 7 days BACTRIM DS 800-160 MG TABS 131903 SULFAMETHOXAZOLE-TRIMETHOPRIM Inactive CIPRO 250 MG TAB 1 tablet by mouth twice daily CIPRO 250 MG TAB 961138 CIPROFLOXACIN HCL Inactive MACROBID 100 MG CAP 1 cap by mouth twice daily MACROBID 100 MG CAP 0284914 NITROFURANTOIN MONOHYD MACRO Inactive BACTRIM DS TABS Take 1 po BID BACTRIM DS TABS SULFAMETHOXAZOLE-TRIMETHOPRIM TABS Inactive AMOXICILLIN 500 MG ORAL CAPS tid AMOXICILLIN 500 MG ORAL CAPS 889047 AMOXICILLIN Inactive CIPRO 250 MG TAB 1 tablet by mouth twice daily CIPRO 250 MG TAB 030410 CIPROFLOXACIN HCL Inactive Advance Directives Directive Description Start Date PERMISSION TO SHARE Immunizations Vaccine Administration Date Value Standard Description pneumococcal immunization administered Pneumovax 23 [CVX33] pneumococcal polysaccharide vaccine, 23 valent Seasonal influenza vaccine, injectable, containing preservative, for > 3 years old (Afluria, FluLaval, Fluzone, Fluvirin, Fluarix, Agriflu(>=18 yo)) Fluzone (>3 yrs.) [[id number]] Influenza, seasonal, injectable Encounters Code Encounter Date Provider Facility CPT-39772 Level 3 Est. Patient 13:06:50 CDT Catalino Irene MD [facility] CPT-80951 Level 4 Est. Patient 19:00:26 CDT Catalino Irene MD [facility] CPT-97924 Level 2 Est. Patient 07:03:19 CDT Catalino Irene MD [facility] CPT-68559 Level 4 Est. Patient 09:54:20 CDT Nadir Hector MD [facility] CPT-11094 Level 2 Est. Patient 18:56:33 CDT Catalino Irene MD [facility] CPT-32211 Level 4 New Patient 14:59:23 CDT Catalino Irene MD [facility] CPT-25352 Level 3 Est. Patient 16:43:04 PACKAGING MACHINE OPERATOR Nadir Hector MD [facility] CPT-88651 Level 4 Est. Patient 14:21:01 PACKAGING MACHINE OPERATOR Nadir Hector MD [facility] CPT-66115 Level 3 Est. Patient 16:41:34 CDT Nadir Hector MD [facility] CPT-18294 Level 4 Est. Patient 13:54:35 PACKAGING MACHINE OPERATOR Nadir Hector MD [facility] CPT-73656 Level 3 Est. Patient 15:51:21 CDT Nadir Hector MD [facility] CPT-79054 Level 4 New Patient 15:58:26 CDT Catalino Irene MD [facility] CPT-94740 Level 4 Est. Patient 15:42:38 PACKAGING MACHINE OPERATOR Nadir Hector MD [facility] Procedures Code Procedure Name Date Entry Date Standard Description CPT-19744 Urine Dip (Floor Use Only) 18:56:34 CDT CPT-01893 Urine Dip (Floor Use Only) 14:21:22 CDT CPT-J0561 Bicillin LA 1,200,000 u (PCN G Benzathine) 13:16:19 CDT CPT-27257 Abx/Therapy Injection 13:16:19 CDT CPT-46281 Urine Dip (Floor Use Only) 14:59:25 CDT CPT-14970 Bladder Scan 14:59:24 CDT CPT-90875 Cystoscopy 14:59:24 CDT CPT-42631 Abd single AP View 12:13:13 CDT CPT-000 Give Pneumovax 14:21:01 PACKAGING MACHINE OPERATOR CPT-000 Give Appropriate Flu Vaccine 14:21:01 PACKAGING MACHINE OPERATOR CPT-93302 Bone Density 08:41:23 PACKAGING MACHINE OPERATOR CPT-000 Give Appropriate Flu Vaccine 13:54:35 PACKAGING MACHINE OPERATOR CPT-000 Give Pneumovax 13:54:35 PACKAGING MACHINE OPERATOR CPT-26389 Administration 2+ single or combination vaccines inc oral 14:01:24 PACKAGING MACHINE OPERATOR CPT-50542 Administration single or combination vaccine inc oral 14 :01:24 PACKAGING MACHINE OPERATOR CPT-91366 Influenza High Dose age 65+ 14:01:24 PACKAGING MACHINE OPERATOR CPT-69398 Pneumovax 14:01:24 PACKAGING MACHINE OPERATOR CPT-23685 Venipuncture Draw Fee 10:36:48 CDT CPT-000 Give Appropriate Flu Vaccine 15:20:11 PACKAGING MACHINE OPERATOR CPT-16844 Administration single or combination vaccine inc oral 15 :50:33 PACKAGING MACHINE OPERATOR CPT-93099 Influenza High Dose age 65+ 15:50:33 PACKAGING MACHINE OPERATOR CPT-91064 LS spine AP and Lat 15:30:05 PACKAGING MACHINE OPERATOR CPT-22865 Hip comp min 2V 15:30:05 PACKAGING MACHINE OPERATOR CPT-52904 Postop F/U Visit 17:28:18 CDT CPT-OV Office Visit 15:04:38 CDT CPT-45996 Bladder Scan 15:58:26 CDT CPT-76769 Cystoscopy 15:58:26 CDT CPT-OV Office Visit 16:15:09 CDT CPT-000 Give Appropriate Flu Vaccine 16:33:10 PACKAGING MACHINE OPERATOR CPT-16361 Administration single or combination vaccine inc oral 19 :21:12 PACKAGING MACHINE OPERATOR CPT-48685 Influenza split virus > age 3 19:21:12 PACKAGING MACHINE OPERATOR
--- OUTSIDE RECORDS SUMMARY | 2017-07-23 09:13 | XMS REPORT | Clinical Summary ---
Author Author Admin, [employer] Organization [facility] Address Unknown Phone Unavailable Allergies, Adverse Reactions, Alerts Allergy Name Reaction Description Start Date Severity Status Provider No Known Allergies Dayanajayant Sánchezley Conditions or Problems Problem Name Problem Code [...] MD Routine general medical examination at a [facility] care facility PERIPHERAL NEUROPATHY 356.9 Active Nadir [...] Active Catalino Irene MD Incomplete bladder emptying Medication List Medication Instructions Start Date Stop Date Generic Name NDC Status Provider Patient Instruction AMOXICILLIN 500 MG ORAL CAPS tid AMOXICILLIN 21412025433 No Longer Active Catalino Irene MD Active BACTRIM DS TABS Take 1 po BID SULFAMETHOXAZOLE- TRIMETHOPRIM TABS 52602116101 No Longer Active Pam Gomez LPN Active MACROBID 100 MG CAP 1 cap by mouth twice daily NITROFURANTOIN MONOHYD MACRO 71864682621 No Longer Active Pam Gomez CYLINDRICAL MIXER Active DIFLUCAN 150 MG TAB 1 tablet by mouth daily FLUCONAZOLE 50707694761 Active Pam Gomez LPN Active CIPRO 250 MG TAB 1 tablet by mouth twice daily CIPROFLOXACIN HCL 35167964038 No Longer Active Pam Gomez LPN Active JANUVIA 100 MG ORAL TABS 1 daily SITAGLIPTIN PHOSPHATE 10589428812 Active Nadir Hector MD Active GLUCOTROL XL 5 MG [id number] one tablet daily GLIPIZIDE 63565308771 No Longer Active Nadir Hector MD Active BACTRIM DS 800-160 MG TABS 1 po BID x 7 days SULFAMETHOXAZOLE-TRIMETHOPRIM 58147679252 No Longer Active Jamal Burrell MD Active FOSAMAX 70 MG TABS 1 po qweek. Take 30min prior to first food/drink. Avoid lying down x 1 hour. ALENDRONATE SODIUM 74922180309 Active Nadir Hector MD Active AMOXICILLIN 500 MG CAPS 2 po BID x 10 days AMOXICILLIN 44378746063 No Longer Active Nadir Hector MD Active JANUVIA 100 MG TABS 1 tablet by mouth daily SITAGLIPTIN PHOSPHATE 44422707809 No Longer Active Nadir Hector MD Active JANUVIA 100 MG TABS Take 1 tab daily SITAGLIPTIN PHOSPHATE 63194487837 No Longer Active Sharon Nuñez Active MACROBID 100 MG CAP 1 cap by mouth twice daily NITROFURANTOIN MONOHYD MACRO 99461031582 No Longer Active Crystal Fernández APRN Active MACRODANTIN 100 MG CAPS 1 capsule by mouth twice daily for seven days NITROFURANTOIN MACROCRYSTAL 49206354771 No Longer Active Ro Yang RN Active BACTRIM DS 800-160 MG TABS one tablet twice a day for seven days SULFAMETHOXAZOLE-TRIMETHOPRIM 08891493576 No Longer Active HEMANTH Griffin Active BACTRIM DS 800-160 MG TABS TAKE ONE TABLET BY MOUTH TWICE DAILY FOR 7 DAYS SULFAMETHOXAZOLE-TRIMETHOPRIM 21887213800 No Longer Active Viviana Lal RN Active CIPRO 250 MG TABS TAKE ONE TABLET BY MOUTH TWICE DAILY FOR 5 DAYS CIPROFLOXACIN HCL 29060044657 No Longer Active Viviana Lal RN Active FLEXERIL 10 MG TABS 1/2 TO 1 TABLET Q12H NEEDED CYCLOBENZAPRINE HCL 18482987663 No Longer Active Viviana Lukasz RN Active AMLODIPINE BESYLATE 5 MG TABS 1 1/2 daily AMLODIPINE BESYLATE 90014134292 Active Nadri Hector MD Active ONGLYZA 5 MG TABS 1 QAM SAXAGLIPTIN HCL 28181157698 No Longer Active Nadir Hector MD Active AMLODIPINE BESYLATE 5 MG TABS 1 1/2 TABLET DAILY AMLODIPINE BESYLATE 72490907113 No Longer Active Nadir Hector MD Active LORTAB 5-500 MG TABS 1 BY MOUTH Q6H NEEDED HYDROCODONE- ACETAMINOPHEN 05463877087 No Longer Active Nadir Hector MD Active ACTOS 45 MG TABS 1 QD PIOGLITAZONE HCL 18262029126 No Longer Active Nadir Hector MD Active BACTRIM DS 800-160 MG TAB 1 tab by mouth twice daily TRIMETHOPRIM-SULFAMETHOXAZOLE 81892014930 No Longer Active Nadir Hector MD Active CALCIUM + D 600-200 MG-UNIT TABS 1 TABLET TWO TIMES A DAY CALCIUM CARBONATE-VITAMIN D 88344282358 Active Ro Trey RN Active METOPROLOL SUCCINATE 25 MG [id number] 1 QAM METOPROLOL SUCCINATE 44083838506 Active Nadir Hector MD Active AMARYL 4 MG TABS 1 QD GLIMEPIRIDE 70660513430 Active Nadir Hector MD Active LOVASTATIN 40 MG TABS 1 QD LOVASTATIN 25699752403 Active Nadir Hector MD Active GLUCOPHAGE 1000 MG TABS 1 TABLET TWO TIMES A DAY METFORMIN HCL 47740792890 Active Nadir Hector MD Active MAXZIDE-25 37.5-25 MG TABS 1 QD TRIAMTERENE-HCTZ 35535706698 Active Nadir Hector MD Active ACCUPRIL 40 MG TABS 1 QD QUINAPRIL HCL 47115725442 Active Nadir Hector MD Active BACTRIM DS 800-160 MG TAB 1 tab by mouth twice daily BACTRIM DS 800-160 MG TAB TRIMETHOPRIM-SULFAMETHOXAZOLE Inactive ACTOS 45 MG TABS 1 QD ACTOS 45 MG TABS 096949 PIOGLITAZONE HCL Inactive LORTAB 5-500 MG TABS 1 BY MOUTH Q6H NEEDED LORTAB 5-500 MG TABS HYDROCODONE-ACETAMINOPHEN Inactive AMLODIPINE BESYLATE 5 MG TABS 1 1/2 TABLET DAILY AMLODIPINE BESYLATE 5 MG TABS 717919 AMLODIPINE BESYLATE Inactive ONGLYZA 5 MG TABS 1 QAM ONGLYZA 5 MG TABS SAXAGLIPTIN HCL Inactive FLEXERIL 10 MG TABS 1/2 TO 1 TABLET Q12H NEEDED FLEXERIL 10 MG TABS CYCLOBENZAPRINE HCL Inactive CIPRO 250 MG TABS TAKE ONE TABLET BY MOUTH TWICE DAILY FOR 5 DAYS CIPRO 250 MG TABS 055944 CIPROFLOXACIN HCL Inactive BACTRIM DS 800-160 MG TABS TAKE ONE TABLET BY MOUTH TWICE DAILY FOR 7 DAYS BACTRIM DS 800-160 MG TABS SULFAMETHOXAZOLE-TRIMETHOPRIM Inactive BACTRIM DS 800-160 MG TABS one tablet twice a day for seven days BACTRIM DS 800-160 MG TABS SULFAMETHOXAZOLE-TRIMETHOPRIM Inactive MACROBID 100 MG CAP 1 cap by mouth twice daily MACROBID 100 MG CAP 725502 NITROFURANTOIN MONOHYD MACRO Inactive JANUVIA 100 MG TABS Take 1 tab daily JANUVIA 100 MG TABS SITAGLIPTIN PHOSPHATE Inactive GLUCOTROL XL 5 MG [id number] one tablet daily GLUCOTROL XL 5 MG [id number] GLIPIZIDE Inactive MACRODANTIN 100 MG CAPS 1 capsule by mouth twice daily for seven days MACRODANTIN 100 MG CAPS 231944 NITROFURANTOIN MACROCRYSTAL Inactive AMOXICILLIN 500 MG CAPS 2 po BID x 10 days AMOXICILLIN 500 MG CAPS 339969 AMOXICILLIN Inactive BACTRIM DS 800-160 MG TABS 1 po BID x 7 days BACTRIM DS 800-160 MG TABS SULFAMETHOXAZOLE-TRIMETHOPRIM Inactive CIPRO 250 MG TAB 1 tablet by mouth twice daily CIPRO 250 MG TAB 674289 CIPROFLOXACIN HCL Inactive MACROBID 100 MG CAP 1 cap by mouth twice daily MACROBID 100 MG CAP 122831 NITROFURANTOIN MONOHYD MACRO Inactive BACTRIM DS TABS Take 1 po BID BACTRIM DS TABS SULFAMETHOXAZOLE-TRIMETHOPRIM TABS Inactive AMOXICILLIN 500 MG ORAL CAPS tid AMOXICILLIN 500 MG ORAL CAPS 258881 AMOXICILLIN Inactive Advance Directives Directive Description Start Date PERMISSION TO SHARE Immunizations Vaccine Administration Date Value Standard Description pneumococcal immunization administered Pneumovax 23 [CVX33] pneumococcal polysaccharide vaccine, 23 valent Seasonal influenza vaccine, injectable, containing preservative, for > 3 years old (Afluria, FluLaval, Fluzone, Fluvirin, Fluarix, Agriflu(>=18 yo)) Fluzone (>3 yrs.) [VFU785] Influenza, seasonal, injectable Vital Signs Date Name Value Unit Range Description blood pressure, diastolic - 8462-4 75 mm[Hg] [...] HGBA1C - Chemistry sodium, serum 140 mmol/L 334-386 1574/07/23 potassium, serum 4.5 mmol/L 3.5-5.2 chloride, serum [...] 1+ Negative RBC, urine, dipstick 3+ Negative protein, [...] 2+ Negative nitrite, urine, semiquantitative Negative Negative urine color Yellow Colorless;Lightyellow;Straw;Yellow appearance, urine SlCloudy Clear specific gravity, urine 1.025 1.000-1.030 pH, urine, semiquantitative 5.5 5.0-8.5 urobilinogen, [...] 1.030 1.000-1.030 pH, urine, semiquantitative 6.5 5.0-8.5 Office Visit: CN recurrent UTI - [...] 0.2 Encounters Code Encounter Date Provider Facility CPT-96035 Level 4 New Patient 14:59:23 CDT Catalino Irene MD [facility] CPT-45439 Level 3 Est. Patient 16:43:04 BI REPORT DEVELOPER Nadir Hector MD [facility] CPT-77831 Level 4 Est. Patient 14:21:01 BI REPORT DEVELOPER Nadir Hector MD [facility] CPT-50738 Level 3 Est. Patient 16:41:34 CDT Nadir Hector MD [facility] CPT-89057 Level 4 Est. Patient 13:54:35 BI REPORT DEVELOPER Nadir Hector MD [facility] CPT-28504 Level 3 Est. Patient 15:51:21 CDT Nadir Hector MD [facility] CPT-51885 Level 4 New Patient 15:58:26 CDT Catalino Irene MD [facility] CPT-56769 Level 4 Est. Patient 15:42:38 BI REPORT DEVELOPER Nadir Hector MD [facility] Procedures Code Procedure Name Date Entry Date Standard Description CPT-79474 Urine Dip (Floor Use Only) 14:59:25 CDT CPT-06185 Bladder Scan 14:59:24 CDT CPT-61617 Cystoscopy 14:59:24 CDT CPT-71129 Abd single AP View 12:13:13 CDT CPT-000 Give Pneumovax 14:21:01 BI REPORT DEVELOPER CPT-000 Give Appropriate Flu Vaccine 14:21:01 BI REPORT DEVELOPER CPT-02953 Bone Density 08:41:23 BI REPORT DEVELOPER CPT-000 Give Appropriate Flu Vaccine 13:54:35 BI REPORT DEVELOPER CPT-000 Give Pneumovax 13:54:35 BI REPORT DEVELOPER CPT-70499 Administration 2+ single or combination vaccines inc oral 14:01:24 BI REPORT DEVELOPER CPT-55557 Administration single or combination vaccine inc oral 14 :01:24 BI REPORT DEVELOPER CPT-24646 Influenza High Dose age 65+ 14:01:24 BI REPORT DEVELOPER CPT-79427 Pneumovax 14:01:24 BI REPORT DEVELOPER CPT-80173 Venipuncture Draw Fee 10:36:48 CDT CPT-000 Give Appropriate Flu Vaccine 15:20:11 BI REPORT DEVELOPER CPT-74507 Administration single or combination vaccine inc oral 15 :50:33 BI REPORT DEVELOPER CPT-64175 Influenza High Dose age 65+ 15:50:33 BI REPORT DEVELOPER CPT-38158 LS spine AP and Lat 15:30:05 BI REPORT DEVELOPER CPT-27825 Hip comp min 2V 15:30:05 BI REPORT DEVELOPER CPT-27482 Postop F/U Visit 17:28:18 CDT CPT-OV Office Visit 15:04:38 CDT CPT-48088 Bladder Scan 15:58:26 CDT CPT-74198 Cystoscopy 15:58:26 CDT CPT-OV Office Visit 16:15:09 CDT CPT-000 Give Appropriate Flu Vaccine 16:33:10 BI REPORT DEVELOPER CPT-69561 Administration single or combination vaccine inc oral 19 :21:12 BI REPORT DEVELOPER CPT-77396 Influenza split virus > age 3 19:21:12 BI REPORT DEVELOPER
--- OUTSIDE RECORDS SUMMARY | 2017-07-23 09:13 | XMS REPORT | Clinical Summary ---
Author Author Admin, IMTIAZ Organization [facility] Address Unknown Phone Unavailable Allergies, Adverse Reactions, [...] Acute sinusitis, unspecified Menopause, surgical 627.[address] [facility] Symptomatic states associated with artificial menopause [...] TAB 1 tablet by mouth daily FLUCONAZOLE 57207321642 No Longer Active Nadir Hector MD Active BACTRIM DS 800-160 MG ORAL TABS 1 BID for 5 days SULFAMETHOXAZOLE-TRIMETHOPRIM 66506253341 No Longer Active Nadir Hector MD Active CIPRO 250 MG TAB 1 tablet by mouth twice daily CIPROFLOXACIN HCL 55128175905 Active Ro Meyer Active AMOXICILLIN 500 MG ORAL CAPS tid AMOXICILLIN 94045334812 No Longer Active Catalino Irene MD Active BACTRIM DS TABS Take 1 po BID SULFAMETHOXAZOLE- TRIMETHOPRIM TABS 22455168710 No Longer Active Pam Gomez LPN Active MACROBID 100 MG CAP 1 cap by mouth twice daily NITROFURANTOIN MONOHYD MACRO 35690521124 No Longer Active Pam Gomez LPN Active CIPRO 250 MG TAB 1 tablet by mouth twice daily CIPROFLOXACIN HCL 79035957754 No Longer Active Pam Gomez LPN Active JANUVIA 100 MG ORAL TABS 1 daily SITAGLIPTIN PHOSPHATE 13417859650 Active Nadir Hector MD Active GLUCOTROL XL 5 MG [id number] one tablet daily GLIPIZIDE 49959573066 No Longer Active Nadir Hector MD Active BACTRIM DS 800-160 MG TABS 1 po BID x 7 days SULFAMETHOXAZOLE-TRIMETHOPRIM 62948845034 No Longer Active Jamal Burrell MD Active FOSAMAX 70 MG TABS 1 po qweek. Take 30min prior to first food/drink. Avoid lying down x 1 hour. ALENDRONATE SODIUM 88015212870 Active Nadir Hector MD Active AMOXICILLIN 500 MG CAPS 2 po BID x 10 days AMOXICILLIN 97000110670 No Longer Active Nadir Hector MD Active JANUVIA 100 MG TABS 1 tablet by mouth daily SITAGLIPTIN PHOSPHATE 15736328833 No Longer Active Nadir Hector MD Active JANUVIA 100 MG TABS Take 1 tab daily SITAGLIPTIN PHOSPHATE 03328834646 No Longer Active Sharon Nuñez Active MACROBID 100 MG CAP 1 cap by mouth twice daily NITROFURANTOIN MONOHYD MACRO 94138201501 No Longer Active Crystal Fernández APRN Active MACRODANTIN 100 MG CAPS 1 capsule by mouth twice daily for seven days NITROFURANTOIN MACROCRYSTAL 00593512410 No Longer Active Ro Yang RN Active BACTRIM DS 800-160 MG TABS one tablet twice a day for seven days SULFAMETHOXAZOLE-TRIMETHOPRIM 14628826768 No Longer Active HEMANTH Griffin Active BACTRIM DS 800-160 MG TABS TAKE ONE TABLET BY MOUTH TWICE DAILY FOR 7 DAYS SULFAMETHOXAZOLE-TRIMETHOPRIM 76160825613 No Longer Active Viviana Lal RN Active CIPRO 250 MG TABS TAKE ONE TABLET BY MOUTH TWICE DAILY FOR 5 DAYS CIPROFLOXACIN HCL 19446329903 No Longer Active Viviana Lal RN Active FLEXERIL 10 MG TABS 1/2 TO 1 TABLET Q12H NEEDED CYCLOBENZAPRINE HCL 67834739528 No Longer Active Viviana Lal RN Active AMLODIPINE BESYLATE 5 MG TABS 1 1/2 daily AMLODIPINE BESYLATE 98117537372 Active Nadir Hector MD Active ONGLYZA 5 MG TABS 1 QAM SAXAGLIPTIN HCL 63580778424 No Longer Active Nadir Hector MD Active AMLODIPINE BESYLATE 5 MG TABS 1 1/2 TABLET DAILY AMLODIPINE BESYLATE 98127873264 No Longer Active Nadir Hector MD Active LORTAB 5-500 MG TABS 1 BY MOUTH Q6H NEEDED HYDROCODONE- ACETAMINOPHEN 81907929074 No Longer Active Nadir Hector MD Active ACTOS 45 MG TABS 1 QD PIOGLITAZONE HCL 58360574469 No Longer Active Nadir Hector MD Active BACTRIM DS 800-160 MG TAB 1 tab by mouth twice daily TRIMETHOPRIM-SULFAMETHOXAZOLE 17156650983 No Longer Active Nadir Hector MD Active CALCIUM + D 600-200 MG-UNIT TABS 1 TABLET TWO TIMES A DAY CALCIUM CARBONATE-VITAMIN D 78483725901 Active Ro Yang RN Active METOPROLOL SUCCINATE 25 MG [id number] 1 QAM METOPROLOL SUCCINATE 85027779217 Active Nadir Hector MD Active AMARYL 4 MG TABS 1 QD GLIMEPIRIDE 38984019703 Active Nadir Hector MD Active LOVASTATIN 40 MG TABS 1 QD LOVASTATIN 53669261537 Active Nadir Hector MD Active GLUCOPHAGE 1000 MG TABS 1 TABLET TWO TIMES A DAY METFORMIN HCL 33781973295 Active Nadir Hector MD Active MAXZIDE-25 37.5-25 MG TABS 1 QD TRIAMTERENE-HCTZ 09708990768 Active Nadir Hector MD Active ACCUPRIL 40 MG TABS 1 QD QUINAPRIL HCL 39144832941 Active Nadir Hector MD Active BACTRIM DS 800-160 MG TAB 1 tab by mouth twice daily BACTRIM DS 800-160 MG TAB TRIMETHOPRIM-SULFAMETHOXAZOLE Inactive ACTOS 45 MG TABS 1 QD ACTOS 45 MG TABS 304820 PIOGLITAZONE HCL Inactive LORTAB 5-500 MG TABS 1 BY MOUTH Q6H NEEDED LORTAB 5-500 MG TABS HYDROCODONE-ACETAMINOPHEN Inactive AMLODIPINE BESYLATE 5 MG TABS 1 1/2 TABLET DAILY AMLODIPINE BESYLATE 5 MG TABS 609519 AMLODIPINE BESYLATE Inactive ONGLYZA 5 MG TABS 1 QAM ONGLYZA 5 MG TABS SAXAGLIPTIN HCL Inactive FLEXERIL 10 MG TABS 1/2 TO 1 TABLET Q12H NEEDED FLEXERIL 10 MG TABS CYCLOBENZAPRINE HCL Inactive CIPRO 250 MG TABS TAKE ONE TABLET BY MOUTH TWICE DAILY FOR 5 DAYS CIPRO 250 MG TABS 052421 CIPROFLOXACIN HCL Inactive BACTRIM DS 800-160 MG TABS TAKE ONE TABLET BY MOUTH TWICE DAILY FOR 7 DAYS BACTRIM DS 800-160 MG TABS SULFAMETHOXAZOLE-TRIMETHOPRIM Inactive BACTRIM DS 800-160 MG TABS one tablet twice a day for seven days BACTRIM DS 800-160 MG TABS SULFAMETHOXAZOLE-TRIMETHOPRIM Inactive MACROBID 100 MG CAP 1 cap by mouth twice daily MACROBID 100 MG CAP 9636922 NITROFURANTOIN MONOHYD MACRO Inactive JANUVIA 100 MG TABS Take 1 tab daily JANUVIA 100 MG TABS SITAGLIPTIN PHOSPHATE Inactive GLUCOTROL XL 5 MG [id number] one tablet daily GLUCOTROL XL 5 MG [id number] GLIPIZIDE Inactive BACTRIM DS 800-160 MG ORAL TABS 1 BID for 5 days BACTRIM DS 800-160 MG ORAL TABS SULFAMETHOXAZOLE-TRIMETHOPRIM Inactive DIFLUCAN 150 MG TAB 1 tablet by mouth daily DIFLUCAN 150 MG TAB 583953 FLUCONAZOLE Inactive MACRODANTIN 100 MG CAPS 1 capsule by mouth twice daily for seven days MACRODANTIN 100 MG CAPS 2951020 NITROFURANTOIN MACROCRYSTAL Inactive AMOXICILLIN 500 MG CAPS 2 po BID x 10 days AMOXICILLIN 500 MG CAPS 811169 AMOXICILLIN Inactive BACTRIM DS 800-160 MG TABS 1 po BID x 7 days BACTRIM DS 800-160 MG TABS SULFAMETHOXAZOLE-TRIMETHOPRIM Inactive CIPRO 250 MG TAB 1 tablet by mouth twice daily CIPRO 250 MG TAB 013659 CIPROFLOXACIN HCL Inactive MACROBID 100 MG CAP 1 cap by mouth twice daily MACROBID 100 MG CAP 9953277 NITROFURANTOIN MONOHYD MACRO Inactive BACTRIM DS TABS Take 1 po BID BACTRIM DS TABS SULFAMETHOXAZOLE-TRIMETHOPRIM TABS Inactive AMOXICILLIN 500 MG ORAL CAPS tid AMOXICILLIN 500 MG ORAL CAPS 130881 AMOXICILLIN Inactive Advance Directives Directive Description Start Date PERMISSION TO SHARE Immunizations Vaccine Administration Date Value Standard Description pneumococcal immunization administered Pneumovax 23 [CVX33] pneumococcal polysaccharide vaccine, 23 valent Seasonal influenza vaccine, injectable, containing preservative, for > 3 years old (Afluria, FluLaval, Fluzone, Fluvirin, Fluarix, Agriflu(>=18 yo)) Fluzone (>3 yrs.) [[id number]] Influenza, seasonal, injectable Vital Signs Date Name [...] Panel - Chemistry sodium, serum 138 mmol/L 088-027 2225/07/02 potassium, serum 4.5 mmol/L 3.5-5.2 chloride, serum [...] HGBA1C - Chemistry cholesterol, serum 147 mg/dL 161-895 7541/08/18 triglyceride, serum, fasting 242 mg/dL 30-200 HDL cholesterol, serum 36 mg/dL 32-96 LDL cholesterol, serum 63 mg/dL 0-130 sodium, serum 137 mmol/L 575-594 1220/08/18 potassium, serum 4.7 mmol/L 3.5-5.2 chloride, serum [...] Office Visit: CN recurrent UTI - Chemistry protein, total urine random 4+ mg/dL RBC, urine, dipstick 3+ Office Visit: CN recurrent UTI - Urinalysis specific gravity, urine 1.015 glucose, urine, semiquantitative negative urinalysis, routine Clean Catch urine color red appearance, urine cloudy leukocyte esterase, urine, by dipstick 3+ nitrite, urine, semiquantitative negative urobilinogen, urine, semiquantitative (dipstick) 0.2 pH, urine, semiquantitative 6.5 Encounters Code Encounter Date Provider Facility CPT-08591 Level 4 Est. Patient 09:54:20 CDT Nadir Hector MD [facility] CPT-47087 Level 2 Est. Patient 18:56:33 CDT Catalino Irene MD [facility] CPT-89056 Level 4 New Patient 14:59:23 CDT Catalino Irene MD [facility] CPT-63069 Level 3 Est. Patient 16:43:04 MATTRESS STUFFER Nadir Hector MD [facility] CPT-56313 Level 4 Est. Patient 14:21:01 MATTRESS STUFFER Nadir Hector MD [facility] CPT-31896 Level 3 Est. Patient 16:41:34 CDT Nadir Hector MD [facility] CPT-64378 Level 4 Est. Patient 13:54:35 MATTRESS STUFFER Nadir Hector MD [facility] CPT-08911 Level 3 Est. Patient 15:51:21 CDT Nadir Hector MD [facility] CPT-24441 Level 4 New Patient 15:58:26 CDT Catalino Irene MD [facility] CPT-96899 Level 4 Est. Patient 15:42:38 MATTRESS STUFFER Nadir Hector MD [facility] Procedures Code Procedure Name Date Entry Date Standard Description CPT-35849 Urine Dip (Floor Use Only) 18:56:34 CDT CPT-36506 Urine Dip (Floor Use Only) 14:21:22 CDT CPT-J0561 Bicillin LA 1,200,000 u (PCN G Benzathine) 13:16:19 CDT CPT-83447 Abx/Therapy Injection 13:16:19 CDT CPT-23215 Urine Dip (Floor Use Only) 14:59:25 CDT CPT-93616 Bladder Scan 14:59:24 CDT CPT-73280 Cystoscopy 14:59:24 CDT CPT-63309 Abd single AP View 12:13:13 CDT CPT-000 Give Pneumovax 14:21:01 MATTRESS STUFFER CPT-000 Give Appropriate Flu Vaccine 14:21:01 MATTRESS STUFFER CPT-87996 Bone Density 08:41:23 MATTRESS STUFFER CPT-000 Give Appropriate Flu Vaccine 13:54:35 MATTRESS STUFFER CPT-000 Give Pneumovax 13:54:35 MATTRESS STUFFER CPT-55695 Administration 2+ single or combination vaccines inc oral 14:01:24 MATTRESS STUFFER CPT-26170 Administration single or combination vaccine inc oral 14 :01:24 MATTRESS STUFFER CPT-93568 Influenza High Dose age 65+ 14:01:24 MATTRESS STUFFER CPT-14448 Pneumovax 14:01:24 MATTRESS STUFFER CPT-15479 Venipuncture Draw Fee 10:36:48 CDT CPT-000 Give Appropriate Flu Vaccine 15:20:11 MATTRESS STUFFER CPT-52938 Administration single or combination vaccine inc oral 15 :50:33 MATTRESS STUFFER CPT-99345 Influenza High Dose age 65+ 15:50:33 MATTRESS STUFFER CPT-12670 LS spine AP and Lat 15:30:05 MATTRESS STUFFER CPT-00475 Hip comp min 2V 15:30:05 MATTRESS STUFFER CPT-88942 Postop F/U Visit 17:28:18 CDT CPT-OV Office Visit 15:04:38 CDT CPT-53529 Bladder Scan 15:58:26 CDT CPT-72789 Cystoscopy 15:58:26 CDT CPT-OV Office Visit 16:15:09 CDT CPT-000 Give Appropriate Flu Vaccine 16:33:10 MATTRESS STUFFER CPT-64340 Administration single or combination vaccine inc oral 19 :21:12 MATTRESS STUFFER CPT-72404 Influenza split virus > age 3 19:21:12 MATTRESS STUFFER
--- OUTSIDE RECORDS SUMMARY | 2017-07-23 09:14 | XMS REPORT | Clinical Summary ---
Author Author Admin, IMTIAZ Organization [facility] Address Unknown Phone Unavailable Allergies, Adverse Reactions, [...] MD Routine general medical examination at [facility] PERIPHERAL NEUROPATHY 356.9 [...] NDC Status Provider Patient Instruction BACTRIM DS 800-160 MG ORAL TABS 1 BID for 5 days SULFAMETHOXAZOLE-TRIMETHOPRIM 63811726720 Active Catalino Irene MD Active AMOXICILLIN 500 MG ORAL CAPS tid AMOXICILLIN 50784221752 No Longer Active Catalino Irene MD Active BACTRIM DS TABS Take 1 po BID SULFAMETHOXAZOLE- TRIMETHOPRIM TABS 63692175653 No Longer Active Pam Gomez LPN Active MACROBID 100 MG CAP 1 cap by mouth twice daily NITROFURANTOIN MONOHYD MACRO 94941786456 No Longer Active Pam Gomez LPN Active DIFLUCAN 150 MG TAB 1 tablet by mouth daily FLUCONAZOLE 41426693082 Active Pam Gomez LPN Active CIPRO 250 MG TAB 1 tablet by mouth twice daily CIPROFLOXACIN HCL 09570287316 No Longer Active Pam Gomez LPN Active JANUVIA 100 MG ORAL TABS 1 daily SITAGLIPTIN PHOSPHATE 58935212906 Active Nadir Hector MD Active GLUCOTROL XL 5 MG [id number] one tablet daily GLIPIZIDE 22780531410 No Longer Active Nadir Hector MD Active BACTRIM DS 800-160 MG TABS 1 po BID x 7 days SULFAMETHOXAZOLE-TRIMETHOPRIM 63626014613 No Longer Active Jamal Burrell MD Active FOSAMAX 70 MG TABS 1 po qweek. Take 30min prior to first food/drink. Avoid lying down x 1 hour. ALENDRONATE SODIUM 66133997733 Active Nadir Hector MD Active AMOXICILLIN 500 MG CAPS 2 po BID x 10 days AMOXICILLIN 30084392266 No Longer Active Nadir Hector MD Active JANUVIA 100 MG TABS 1 tablet by mouth daily SITAGLIPTIN PHOSPHATE 77441798464 No Longer Active Nadir Hector MD Active JANUVIA 100 MG TABS Take 1 tab daily SITAGLIPTIN PHOSPHATE 31543898695 No Longer Active Sharon Nuñez Active MACROBID 100 MG CAP 1 cap by mouth twice daily NITROFURANTOIN MONOHYD MACRO 61267273537 No Longer Active Crystal Fernández APRN Active MACRODANTIN 100 MG CAPS 1 capsule by mouth twice daily for seven days NITROFURANTOIN MACROCRYSTAL 64664353742 No Longer Active Ro Yang RN Active BACTRIM DS 800-160 MG TABS one tablet twice a day for seven days SULFAMETHOXAZOLE-TRIMETHOPRIM 54770549203 No Longer Active HEMANTH Griffin Active BACTRIM DS 800-160 MG TABS TAKE ONE TABLET BY MOUTH TWICE DAILY FOR 7 DAYS SULFAMETHOXAZOLE-TRIMETHOPRIM 51340245911 No Longer Active Viviana Lal RN Active CIPRO 250 MG TABS TAKE ONE TABLET BY MOUTH TWICE DAILY FOR 5 DAYS CIPROFLOXACIN HCL 74803771725 No Longer Active Viviana Lal RN Active FLEXERIL 10 MG TABS 1/2 TO 1 TABLET Q12H NEEDED CYCLOBENZAPRINE HCL 22227061726 No Longer Active Viviana Lal RN Active AMLODIPINE BESYLATE 5 MG TABS 1 1/2 daily AMLODIPINE BESYLATE 18233981981 Active Nadir Hector MD Active ONGLYZA 5 MG TABS 1 QAM SAXAGLIPTIN HCL 37525278248 No Longer Active Nadir Hector MD Active AMLODIPINE BESYLATE 5 MG TABS 1 1/2 TABLET DAILY AMLODIPINE BESYLATE 36827947337 No Longer Active Nadir Hector MD Active LORTAB 5-500 MG TABS 1 BY MOUTH Q6H NEEDED HYDROCODONE- ACETAMINOPHEN 74073711359 No Longer Active Nadir Hector MD Active ACTOS 45 MG TABS 1 QD PIOGLITAZONE HCL 30056470713 No Longer Active Nadir Hector MD Active BACTRIM DS 800-160 MG TAB 1 tab by mouth twice daily TRIMETHOPRIM-SULFAMETHOXAZOLE 89810110292 No Longer Active Nadir Hector MD Active CALCIUM + D 600-200 MG-UNIT TABS 1 TABLET TWO TIMES A DAY CALCIUM CARBONATE-VITAMIN D 80185487086 Active Ro Yang RN Active METOPROLOL SUCCINATE 25 MG [id number] 1 QAM METOPROLOL SUCCINATE 31646491541 Active Nadir Hector MD Active AMARYL 4 MG TABS 1 QD GLIMEPIRIDE 45015521371 Active Nadir Hector MD Active LOVASTATIN 40 MG TABS 1 QD LOVASTATIN 67330415966 Active Nadir Hector MD Active GLUCOPHAGE 1000 MG TABS 1 TABLET TWO TIMES A DAY METFORMIN HCL 47266926918 Active Nadir Hector MD Active MAXZIDE-25 37.5-25 MG TABS 1 QD TRIAMTERENE-HCTZ 31861031506 Active Nadir Hector MD Active ACCUPRIL 40 MG TABS 1 QD QUINAPRIL HCL 54085747940 Active Nadir Hector MD Active BACTRIM DS 800-160 MG TAB 1 tab by mouth twice daily BACTRIM DS 800-160 MG TAB TRIMETHOPRIM-SULFAMETHOXAZOLE Inactive ACTOS 45 MG TABS 1 QD ACTOS 45 MG TABS 354189 PIOGLITAZONE HCL Inactive LORTAB 5-500 MG TABS 1 BY MOUTH Q6H NEEDED LORTAB 5-500 MG TABS HYDROCODONE-ACETAMINOPHEN Inactive AMLODIPINE BESYLATE 5 MG TABS 1 1/2 TABLET DAILY AMLODIPINE BESYLATE 5 MG TABS 801963 AMLODIPINE BESYLATE Inactive ONGLYZA 5 MG TABS 1 QAM ONGLYZA 5 MG TABS SAXAGLIPTIN HCL Inactive FLEXERIL 10 MG TABS 1/2 TO 1 TABLET Q12H NEEDED FLEXERIL 10 MG TABS CYCLOBENZAPRINE HCL Inactive CIPRO 250 MG TABS TAKE ONE TABLET BY MOUTH TWICE DAILY FOR 5 DAYS CIPRO 250 MG TABS 941709 CIPROFLOXACIN HCL Inactive BACTRIM DS 800-160 MG TABS TAKE ONE TABLET BY MOUTH TWICE DAILY FOR 7 DAYS BACTRIM DS 800-160 MG TABS SULFAMETHOXAZOLE-TRIMETHOPRIM Inactive BACTRIM DS 800-160 MG TABS one tablet twice a day for seven days BACTRIM DS 800-160 MG TABS SULFAMETHOXAZOLE-TRIMETHOPRIM Inactive MACROBID 100 MG CAP 1 cap by mouth twice daily MACROBID 100 MG CAP 490942 NITROFURANTOIN MONOHYD MACRO Inactive JANUVIA 100 MG TABS Take 1 tab daily JANUVIA 100 MG TABS SITAGLIPTIN PHOSPHATE Inactive GLUCOTROL XL 5 MG [id number] one tablet daily GLUCOTROL XL 5 MG [id number] GLIPIZIDE Inactive MACRODANTIN 100 MG CAPS 1 capsule by mouth twice daily for seven days MACRODANTIN 100 MG CAPS 811761 NITROFURANTOIN MACROCRYSTAL Inactive AMOXICILLIN 500 MG CAPS 2 po BID x 10 days AMOXICILLIN 500 MG CAPS 531153 AMOXICILLIN Inactive BACTRIM DS 800-160 MG TABS 1 po BID x 7 days BACTRIM DS 800-160 MG TABS SULFAMETHOXAZOLE-TRIMETHOPRIM Inactive CIPRO 250 MG TAB 1 tablet by mouth twice daily CIPRO 250 MG TAB 226337 CIPROFLOXACIN HCL Inactive MACROBID 100 MG CAP 1 cap by mouth twice daily MACROBID 100 MG CAP 300203 NITROFURANTOIN MONOHYD MACRO Inactive BACTRIM DS TABS Take 1 po BID BACTRIM DS TABS SULFAMETHOXAZOLE-TRIMETHOPRIM TABS Inactive AMOXICILLIN 500 MG ORAL CAPS tid AMOXICILLIN 500 MG ORAL CAPS 639531 AMOXICILLIN Inactive Advance Directives Directive Description Start Date PERMISSION TO SHARE Immunizations Vaccine Administration Date Value Standard Description pneumococcal immunization administered Pneumovax 23 [CVX33] pneumococcal polysaccharide vaccine, 23 valent Seasonal influenza vaccine, injectable, containing preservative, for > 3 years old (Afluria, FluLaval, Fluzone, Fluvirin, Fluarix, Agriflu(>=18 yo)) Fluzone (>3 yrs.) [VIB378] Influenza, seasonal, injectable Vital Signs Date Name [...] Panel - Chemistry sodium, serum 138 mmol/L 810-600 7385/07/02 potassium, serum 4.5 mmol/L 3.5-5.2 chloride, serum [...] hemoglobin 7.1 % 4.3-6.0 Lab Report: UADIP (AUTO) - [...] 6.5 Encounters Code Encounter Date Provider Facility CPT-82333 Level 4 New Patient 14:59:23 CDT Catalino Irene MD [facility] CPT-98624 Level 3 Est. Patient 16:43:04 AUTO GARAGE MECHANIC Nadir Hector MD [facility] CPT-99240 Level 4 Est. Patient 14:21:01 AUTO G[employer]AGE MECHANIC Nadir Hector MD [facility] CPT-10102 Level 3 Est. Patient 16:41:34 CDT Nadir Hector MD [facility] CPT-48322 Level 4 Est. Patient 13:54:35 AUTO G[employer]AGE MECHANIC Nadir Hector MD [facility] CPT-20419 Level 3 Est. Patient 15:51:21 CDT Nadir Hector MD [facility] CPT-03349 Level 4 New Patient 15:58:26 CDT Catalino Irene MD [facility] CPT-74239 Level 4 Est. Patient 15:42:38 AUTO G[employer]AGE MECHANIC Nadir Hector MD [facility] Procedures Code Procedure Name Date Entry Date Standard Description CPT-10420 Urine Dip (Floor Use Only) 14:59:25 CDT CPT-72851 Bladder Scan 14:59:24 CDT CPT-67813 Cystoscopy 14:59:24 CDT CPT-02032 Abd single AP View 12:13:13 CDT CPT-000 Give Pneumovax 14:21:01 [employer]CHANIC CPT-000 Give Appropriate Flu Vaccine 14:21:01 AUTO [employer]CH[employer]IC CPT-89015 Bone Density 08:41:23 AUTO GARAGE MECHANIC CPT-000 Give Appropriate Flu Vaccine 13:54:35 AUTO GARAGE MECHANIC CPT-000 Give Pneumovax 13:54:35 AUTO GARAGE MECHANIC CPT-57327 Administration 2+ single or combination vaccines inc oral 14:01:24 AUTO GARAGE MECHANIC CPT-47555 Administration single or combination vaccine inc oral 14 :01:24 AUTO GARAGE MECHANIC CPT-45341 Influenza High Dose age 65+ 14:01:24 AUTO GARAGE MECHANIC CPT-68364 Pneumovax 14:01:24 AUTO GARAGE MECHANIC CPT-88583 Venipuncture Draw Fee 10:36:48 CDT CPT-000 Give Appropriate Flu Vaccine 15:20:11 AUTO GARAGE MECHANIC CPT-05922 Administration single or combination vaccine inc oral 15 :50:33 AUTO GARAGE MECHANIC CPT-97435 Influenza High Dose age 65+ 15:50:33 AUTO GARAGE MECHANIC CPT-16356 LS spine AP and Lat 15:30:05 AUTO GARAGE MECHANIC CPT-57502 Hip comp min 2V 15:30:05 AUTO GARAGE MECHANIC CPT-18233 Postop F/U Visit 17:28:18 CDT CPT-OV Office Visit 15:04:38 CDT CPT-90307 Bladder Scan 15:58:26 CDT CPT-31190 Cystoscopy 15:58:26 CDT CPT-OV Office Visit 16:15:09 CDT CPT-000 Give Appropriate Flu Vaccine 16:33:10 AUTO GARAGE MECHANIC CPT-42746 Administration single or combination vaccine inc oral 19 :21:12 AUTO GARAGE MECHANIC CPT-33647 Influenza split virus > age 3 19:21:12 AUTO GARAGE MECHANIC
--- OUTSIDE RECORDS SUMMARY | 2017-07-23 09:15 | XMS REPORT | Clinical Summary ---
Author Author Admin, IMTIAZ Organization [facility] Address Unknown Phone Unavailable Allergies, Adverse Reactions, [...] Acute sinusitis, unspecified Menopause, surgical 627.4 Active [facility] Symptomatic states associated with artificial menopause Urinary [...] TAB 1 tablet by mouth daily FLUCONAZOLE 89018661732 No Longer Active Nadir Hector MD Active BACTRIM DS 800-160 MG ORAL TABS 1 BID for 5 days SULFAMETHOXAZOLE-TRIMETHOPRIM 93588646883 No Longer Active Nadir Hector MD Active CIPRO 250 MG TAB 1 tablet by mouth twice daily CIPROFLOXACIN HCL 02255949851 No Longer Active Ro Meyer Active AMOXICILLIN 500 MG ORAL CAPS tid AMOXICILLIN 32148101511 No Longer Active Catalino Irene MD Active BACTRIM DS TABS Take 1 po BID SULFAMETHOXAZOLE- TRIMETHOPRIM TABS 30529879630 No Longer Active Pam Gomez LPN Active MACROBID 100 MG CAP 1 cap by mouth twice daily NITROFURANTOIN MONOHYD MACRO 65896881700 No Longer Active Pam Gomez LPN Active CIPRO 250 MG TAB 1 tablet by mouth twice daily CIPROFLOXACIN HCL 31392612638 No Longer Active Pam Gomez LPN Active JANUVIA 100 MG ORAL TABS 1 daily SITAGLIPTIN PHOSPHATE 39385268582 Active Nadir Hector MD Active GLUCOTROL XL 5 MG [id number] one tablet daily GLIPIZIDE 28130388892 No Longer Active Nadir Hector MD Active BACTRIM DS 800-160 MG TABS 1 po BID x 7 days SULFAMETHOXAZOLE-TRIMETHOPRIM 52731605823 No Longer Active Jamal Burrell MD Active FOSAMAX 70 MG TABS 1 po qweek. Take 30min prior to first food/drink. Avoid lying down x 1 hour. ALENDRONATE SODIUM 47421515081 Active Nadir Hector MD Active AMOXICILLIN 500 MG CAPS 2 po BID x 10 days AMOXICILLIN 85764076893 No Longer Active Nadir Hector MD Active JANUVIA 100 MG TABS 1 tablet by mouth daily SITAGLIPTIN PHOSPHATE 60569812618 No Longer Active Nadir Hector MD Active JANUVIA 100 MG TABS Take 1 tab daily SITAGLIPTIN PHOSPHATE 99310590482 No Longer Active Sharon Nuñez Active MACROBID 100 MG CAP 1 cap by mouth twice daily NITROFURANTOIN MONOHYD MACRO 45135326632 No Longer Active Crystal Fernández APRN Active MACRODANTIN 100 MG CAPS 1 capsule by mouth twice daily for seven days NITROFURANTOIN MACROCRYSTAL 14972197222 No Longer Active Ro Trey RN Active BACTRIM DS 800-160 MG TABS one tablet twice a day for seven days SULFAMETHOXAZOLE-TRIMETHOPRIM 03495922929 No Longer Active HEMANTH Griffin Active BACTRIM DS 800-160 MG TABS TAKE ONE TABLET BY MOUTH TWICE DAILY FOR 7 DAYS SULFAMETHOXAZOLE-TRIMETHOPRIM 69928884075 No Longer Active Viviana Lal RN Active CIPRO 250 MG TABS TAKE ONE TABLET BY MOUTH TWICE DAILY FOR 5 DAYS CIPROFLOXACIN HCL 92380480514 No Longer Active Viviana Lal RN Active FLEXERIL 10 MG TABS 1/2 TO 1 TABLET Q12H NEEDED CYCLOBENZAPRINE HCL 79883817349 No Longer Active Viviana Lal RN Active AMLODIPINE BESYLATE 5 MG TABS 1 1/2 daily AMLODIPINE BESYLATE 67933726766 Active Nadir Hector MD Active ONGLYZA 5 MG TABS 1 QAM SAXAGLIPTIN HCL 75285777241 No Longer Active Nadir Hector MD Active AMLODIPINE BESYLATE 5 MG TABS 1 1/2 TABLET DAILY AMLODIPINE BESYLATE 07704934446 No Longer Active Nadir Hector MD Active LORTAB 5-500 MG TABS 1 BY MOUTH Q6H NEEDED HYDROCODONE- ACETAMINOPHEN 19127715548 No Longer Active Nadir Hector MD Active ACTOS 45 MG TABS 1 QD PIOGLITAZONE HCL 70826941391 No Longer Active Nadir Hector MD Active BACTRIM DS 800-160 MG TAB 1 tab by mouth twice daily TRIMETHOPRIM-SULFAMETHOXAZOLE 09051640246 No Longer Active Nadir Hector MD Active CALCIUM + D 600-200 MG-UNIT TABS 1 TABLET TWO TIMES A DAY CALCIUM CARBONATE-VITAMIN D 82894284627 Active Ro Yang RN Active METOPROLOL SUCCINATE 25 MG [id number] 1 QAM METOPROLOL SUCCINATE 28460230365 Active Nadir Hector MD Active AMARYL 4 MG TABS 1 QD GLIMEPIRIDE 67989266824 Active Nadir Hector MD Active LOVASTATIN 40 MG TABS 1 QD LOVASTATIN 68666866976 Active Nadir Hector MD Active GLUCOPHAGE 1000 MG TABS 1 TABLET TWO TIMES A DAY METFORMIN HCL 63009114149 Active Nadir Hector MD Active MAXZIDE-25 37.5-25 MG TABS 1 QD TRIAMTERENE-HCTZ 40175241325 Active Nadir Hector MD Active ACCUPRIL 40 MG TABS 1 QD QUINAPRIL HCL 34301225336 Active Nadir Hector MD Active BACTRIM DS 800-160 MG TAB 1 tab by mouth twice daily BACTRIM DS 800-160 MG TAB TRIMETHOPRIM-SULFAMETHOXAZOLE Inactive ACTOS 45 MG TABS 1 QD ACTOS 45 MG TABS 146130 PIOGLITAZONE HCL Inactive LORTAB 5-500 MG TABS 1 BY MOUTH Q6H NEEDED LORTAB 5-500 MG TABS HYDROCODONE-ACETAMINOPHEN Inactive AMLODIPINE BESYLATE 5 MG TABS 1 1/2 TABLET DAILY AMLODIPINE BESYLATE 5 MG TABS 210692 AMLODIPINE BESYLATE Inactive ONGLYZA 5 MG TABS 1 QAM ONGLYZA 5 MG TABS SAXAGLIPTIN HCL Inactive FLEXERIL 10 MG TABS 1/2 TO 1 TABLET Q12H NEEDED FLEXERIL 10 MG TABS CYCLOBENZAPRINE HCL Inactive CIPRO 250 MG TABS TAKE ONE TABLET BY MOUTH TWICE DAILY FOR 5 DAYS CIPRO 250 MG TABS 158927 CIPROFLOXACIN HCL Inactive BACTRIM DS 800-160 MG TABS TAKE ONE TABLET BY MOUTH TWICE DAILY FOR 7 DAYS BACTRIM DS 800-160 MG TABS SULFAMETHOXAZOLE-TRIMETHOPRIM Inactive BACTRIM DS 800-160 MG TABS one tablet twice a day for seven days BACTRIM DS 800-160 MG TABS SULFAMETHOXAZOLE-TRIMETHOPRIM Inactive MACROBID 100 MG CAP 1 cap by mouth twice daily MACROBID 100 MG CAP 1573346 NITROFURANTOIN MONOHYD MACRO Inactive JANUVIA 100 MG TABS Take 1 tab daily JANUVIA 100 MG TABS SITAGLIPTIN PHOSPHATE Inactive GLUCOTROL XL 5 MG [id number] one tablet daily GLUCOTROL XL 5 MG [id number] GLIPIZIDE Inactive BACTRIM DS 800-160 MG ORAL TABS 1 BID for 5 days BACTRIM DS 800-160 MG ORAL TABS SULFAMETHOXAZOLE-TRIMETHOPRIM Inactive DIFLUCAN 150 MG TAB 1 tablet by mouth daily DIFLUCAN 150 MG TAB 629824 FLUCONAZOLE Inactive MACRODANTIN 100 MG CAPS 1 capsule by mouth twice daily for seven days MACRODANTIN 100 MG CAPS 0758173 NITROFURANTOIN MACROCRYSTAL Inactive AMOXICILLIN 500 MG CAPS 2 po BID x 10 days AMOXICILLIN 500 MG CAPS 159215 AMOXICILLIN Inactive BACTRIM DS 800-160 MG TABS 1 po BID x 7 days BACTRIM DS 800-160 MG TABS SULFAMETHOXAZOLE-TRIMETHOPRIM Inactive CIPRO 250 MG TAB 1 tablet by mouth twice daily CIPRO 250 MG TAB 825260 CIPROFLOXACIN HCL Inactive MACROBID 100 MG CAP 1 cap by mouth twice daily MACROBID 100 MG CAP 8028336 NITROFURANTOIN MONOHYD MACRO Inactive BACTRIM DS TABS Take 1 po BID BACTRIM DS TABS SULFAMETHOXAZOLE-TRIMETHOPRIM TABS Inactive AMOXICILLIN 500 MG ORAL CAPS tid AMOXICILLIN 500 MG ORAL CAPS 147929 AMOXICILLIN Inactive CIPRO 250 MG TAB 1 tablet by mouth twice daily CIPRO 250 MG TAB 456189 CIPROFLOXACIN HCL Inactive Advance Directives Directive Description Start Date PERMISSION TO SHARE Immunizations Vaccine Administration Date Value Standard Description pneumococcal immunization administered Pneumovax 23 [CVX33] pneumococcal polysaccharide vaccine, 23 valent Seasonal influenza vaccine, injectable, containing preservative, for > 3 years old (Afluria, FluLaval, Fluzone, Fluvirin, Fluarix, Agriflu(>=18 yo)) Fluzone (>3 yrs.) [DFN105] Influenza, seasonal, injectable Vital Signs Date Name [...] Panel - Chemistry sodium, serum 138 mmol/L 868-910 9962/07/02 potassium, serum 4.5 mmol/L 3.5-5.2 chloride, serum [...] HGBA1C - Chemistry cholesterol, serum 147 mg/dL 979-507 8061/08/18 triglyceride, serum, fasting 242 mg/dL 30-200 HDL cholesterol, serum 36 mg/dL 32-96 LDL cholesterol, serum 63 mg/dL 0-130 sodium, serum 137 mmol/L 359-118 3291/08/18 potassium, serum 4.7 mmol/L 3.5-5.2 chloride, serum [...] 0.2 Encounters Code Encounter Date Provider Facility CPT-83731 Level 4 Est. Patient 09:54:20 CDT Nadir Hector MD [facility] CPT-22404 Level 2 Est. Patient 18:56:33 CDT Catalino Irene MD [facility] CPT-48864 Level 4 New Patient 14:59:23 CDT Catalino Irene MD [facility] CPT-03235 Level 3 Est. Patient 16:43:04 LEAK HUNTER Nadir Hector MD [facility] CPT-45155 Level 4 Est. Patient 14:21:01 LEAK HUNTER Nadir Hector MD [facility] CPT-37230 Level 3 Est. Patient 16:41:34 CDT Nadir Hector MD [facility] CPT-94700 Level 4 Est. Patient 13:54:35 LEAK HUNTER Nadir Hector MD [facility] CPT-49479 Level 3 Est. Patient 15:51:21 CDT Nadir Hector MD [facility] CPT-07330 Level 4 New Patient 15:58:26 CDT Catalino Irene MD [facility] CPT-03468 Level 4 Est. Patient 15:42:38 LEAK HUNTER Nadir Hector MD [facility] Procedures Code Procedure Name Date Entry Date Standard Description CPT-13746 Urine Dip (Floor Use Only) 18:56:34 CDT CPT-97480 Urine Dip (Floor Use Only) 14:21:22 CDT CPT-J0561 Bicillin LA 1,200,000 u (PCN G Benzathine) 13:16:19 CDT CPT-69730 Abx/Therapy Injection 13:16:19 CDT CPT-74329 Urine Dip (Floor Use Only) 14:59:25 CDT CPT-31688 Bladder Scan 14:59:24 CDT CPT-03259 Cystoscopy 14:59:24 CDT CPT-81649 Abd single AP View 12:13:13 CDT CPT-000 Give Pneumovax 14:21:01 LEAK HUNTER CPT-000 Give Appropriate Flu Vaccine 14:21:01 LEAK HUNTER CPT-79823 Bone Density 08:41:23 LEAK HUNTER CPT-000 Give Appropriate Flu Vaccine 13:54:35 LEAK HUNTER CPT-000 Give Pneumovax 13:54:35 LEAK HUNTER CPT-12130 Administration 2+ single or combination vaccines inc oral 14:01:24 LEAK HUNTER CPT-19764 Administration single or combination vaccine inc oral 14 :01:24 LEAK HUNTER CPT-81526 Influenza High Dose age 65+ 14:01:24 LEAK HUNTER CPT-82380 Pneumovax 14:01:24 LEAK HUNTER CPT-92471 Venipuncture Draw Fee 10:36:48 CDT CPT-000 Give Appropriate Flu Vaccine 15:20:11 LEAK HUNTER CPT-25001 Administration single or combination vaccine inc oral 15 :50:33 LEAK HUNTER CPT-95415 Influenza High Dose age 65+ 15:50:33 LEAK HUNTER CPT-54081 LS spine AP and Lat 15:30:05 LEAK HUNTER CPT-80620 Hip comp min 2V 15:30:05 LEAK HUNTER CPT-37839 Postop F/U Visit 17:28:18 CDT CPT-OV Office Visit 15:04:38 CDT CPT-62478 Bladder Scan 15:58:26 CDT CPT-51646 Cystoscopy 15:58:26 CDT CPT-OV Office Visit 16:15:09 CDT CPT-000 Give Appropriate Flu Vaccine 16:33:10 LEAK HUNTER CPT-39931 Administration single or combination vaccine inc oral 19 :21:12 LEAK HUNTER CPT-98229 Influenza split virus > age 3 19:21:12 LEAK HUNTER
--- OUTSIDE RECORDS SUMMARY | 2017-07-23 09:15 | XMS REPORT | Clinical Summary ---
Author Author Admin, IMTIAZ Organization [facility] Address Unknown Phone Unavailable Allergies, Adverse Reactions, [...] MD Routine general medical examination at a [facility] care facility PERIPHERAL NEUROPATHY 356.9 Active [...] St Urinary tract infection, site not specified Medication List Medication Instructions Start Date Stop Date Generic Name NDC Status Provider Patient Instruction MACROBID 100 MG CAP 1 cap by mouth twice daily NITROFURANTOIN MONOHYD MACRO 22213308926 No Longer Active Pam Gomez EQUITY MANAGER Active DIFLUCAN 150 MG TAB 1 tablet by mouth daily FLUCONAZOLE 44260225524 Active Pam Gomez LPN Active CIPRO 250 MG TAB 1 tablet by mouth twice daily CIPROFLOXACIN HCL 74007980393 No Longer Active Pam Gomez LPN Active JANUVIA 100 MG ORAL TABS 1 daily SITAGLIPTIN PHOSPHATE 87483040435 Active Nadir Hector MD Active GLUCOTROL XL 5 MG [id number]-MED one tablet daily GLIPIZIDE 97830412643 No Longer Active Nadir Hector MD Active BACTRIM DS 800-160 MG TABS 1 po BID x 7 days SULFAMETHOXAZOLE-TRIMETHOPRIM 80264382641 No Longer Active Jamal Burrell MD Active FOSAMAX 70 MG TABS 1 po qweek. Take 30min prior to first food/drink. Avoid lying down x 1 hour. ALENDRONATE SODIUM 79205720642 Active Nadir Hector MD Active AMOXICILLIN 500 MG CAPS 2 po BID x 10 days AMOXICILLIN 78052546248 No Longer Active Nadir Hector MD Active JANUVIA 100 MG TABS 1 tablet by mouth daily SITAGLIPTIN PHOSPHATE 64936631347 No Longer Active Nadir Hector MD Active JANUVIA 100 MG TABS Take 1 tab daily SITAGLIPTIN PHOSPHATE 01343271702 No Longer Active Sharon Nuñez Active MACROBID 100 MG CAP 1 cap by mouth twice daily NITROFURANTOIN MONOHYD MACRO 03084421592 No Longer Active Crystal Fernández APRN Active MACRODANTIN 100 MG CAPS 1 capsule by mouth twice daily for seven days NITROFURANTOIN MACROCRYSTAL 85621506944 No Longer Active Ro Yang RN Active BACTRIM DS 800-160 MG TABS one tablet twice a day for seven days SULFAMETHOXAZOLE-TRIMETHOPRIM 90057480742 No Longer Active HEMANTH Griffin Active BACTRIM DS 800-160 MG TABS TAKE ONE TABLET BY MOUTH TWICE DAILY FOR 7 DAYS SULFAMETHOXAZOLE-TRIMETHOPRIM 82856562852 No Longer Active Viviana Lal RN Active CIPRO 250 MG TABS TAKE ONE TABLET BY MOUTH TWICE DAILY FOR 5 DAYS CIPROFLOXACIN HCL 82789369410 No Longer Active Viviana Lal RN Active FLEXERIL 10 MG TABS 1/2 TO 1 TABLET Q12H NEEDED CYCLOBENZAPRINE HCL 90895156076 No Longer Active Viviana Lal RN Active AMLODIPINE BESYLATE 5 MG TABS 1 1/2 daily AMLODIPINE BESYLATE 43033071153 Active Nadir Hector MD Active ONGLYZA 5 MG TABS 1 QAM SAXAGLIPTIN HCL 51434106214 No Longer Active Nadir Hector MD Active AMLODIPINE BESYLATE 5 MG TABS 1 1/2 TABLET DAILY AMLODIPINE BESYLATE 68129360731 No Longer Active Nadir Hector MD Active LORTAB 5-500 MG TABS 1 BY MOUTH Q6H NEEDED HYDROCODONE- ACETAMINOPHEN 74887525260 No Longer Active Nadir Hector MD Active ACTOS 45 MG TABS 1 QD PIOGLITAZONE HCL 31520225929 No Longer Active Nadir Hector MD Active BACTRIM DS 800-160 MG TAB 1 tab by mouth twice daily TRIMETHOPRIM-SULFAMETHOXAZOLE 12874157583 No Longer Active Nadir Hector MD Active CALCIUM + D 600-200 MG-UNIT TABS 1 TABLET TWO TIMES A DAY CALCIUM CARBONATE-VITAMIN D 53027021303 Active Ro Yang RN Active METOPROLOL SUCCINATE 25 MG [id number] 1 QAM METOPROLOL SUCCINATE 58271918274 Active Nadir Hector MD Active AMARYL 4 MG TABS 1 QD GLIMEPIRIDE 25520734272 Active Nadir Hector MD Active LOVASTATIN 40 MG TABS 1 QD LOVASTATIN 99178354253 Active Nadir Hector MD Active GLUCOPHAGE 1000 MG TABS 1 TABLET TWO TIMES A DAY METFORMIN HCL 12141766043 Active Nadir Hector MD Active MAXZIDE-25 37.5-25 MG TABS 1 QD TRIAMTERENE-HCTZ 48445090962 Active Nadir Hector MD Active ACCUPRIL 40 MG TABS 1 QD QUINAPRIL HCL 78168287914 Active Nadir Hector MD Active BACTRIM DS 800-160 MG TAB 1 tab by mouth twice daily BACTRIM DS 800-160 MG TAB TRIMETHOPRIM-SULFAMETHOXAZOLE Inactive ACTOS 45 MG TABS 1 QD ACTOS 45 MG TABS 698618 PIOGLITAZONE HCL Inactive LORTAB 5-500 MG TABS 1 BY MOUTH Q6H NEEDED LORTAB 5-500 MG TABS HYDROCODONE-ACETAMINOPHEN Inactive AMLODIPINE BESYLATE 5 MG TABS 1 1/2 TABLET DAILY AMLODIPINE BESYLATE 5 MG TABS 138227 AMLODIPINE BESYLATE Inactive ONGLYZA 5 MG TABS [...] mouth twice daily MACROBID 100 MG CAP 383759 NITROFURANTOIN MONOHYD MACRO Inactive JANUVIA 100 MG TABS Take 1 tab daily JANUVIA 100 MG TABS SITAGLIPTIN PHOSPHATE Inactive GLUCOTROL XL 5 MG [id number] one tablet daily GLUCOTROL XL 5 MG [id number] GLIPIZIDE Inactive MACRODANTIN 100 MG CAPS 1 capsule by mouth twice daily for seven days MACRODANTIN 100 MG CAPS 507546 NITROFURANTOIN MACROCRYSTAL Inactive AMOXICILLIN 500 MG CAPS 2 po BID x 10 days AMOXICILLIN 500 MG CAPS 879933 AMOXICILLIN Inactive BACTRIM DS 800-160 MG TABS 1 po BID x 7 days BACTRIM DS 800-160 MG TABS SULFAMETHOXAZOLE-TRIMETHOPRIM Inactive CIPRO 250 MG TAB 1 tablet by mouth twice daily CIPRO 250 MG TAB 19740413 CIPROFLOXACIN HCL Inactive MACROBID 100 MG CAP 1 cap by mouth twice daily MACROBID 100 MG CAP 135413 NITROFURANTOIN MONOHYD MACRO Inactive Advance Directives Directive Description Start Date PERMISSION TO SHARE Immunizations Vaccine Administration Date Value Standard Description pneumococcal immunization administered Pneumovax 23 [CVX33] pneumococcal polysaccharide vaccine, 23 valent Seasonal influenza vaccine, injectable, containing preservative, for > 3 years old (Afluria, FluLaval, Fluzone, Fluvirin, Fluarix, Agriflu(>=18 yo)) Fluzone (>3 yrs.) [[id number]] Influenza, seasonal, injectable Vital Signs Date Name [...] HGBA1C - Chemistry sodium, serum 140 mmol/L 820-094 9783/07/23 potassium, serum 4.5 mmol/L 3.5-5.2 chloride, serum [...] 5.0-8.5 Encounters Code Encounter Date Provider Facility CPT-25735 Level 3 Est. Patient 16:43:04 INTERACTIVE DEVELOPER Nadir Hector MD [facility] CPT-38408 Level 4 Est. Patient 14:21:01 INTERACTIVE DEVELOPER Nadir Hector MD [facility] CPT-81901 Level 3 Est. Patient 16:41:34 CDT Nadir Hector MD [facility] CPT-26120 Level 4 Est. Patient 13:54:35 INTERACTIVE DEVELOPER Nadir Hector MD [facility] CPT-87273 Level 3 Est. Patient 15:51:21 CDT Nadir Hector MD [facility] CPT-60391 Level 4 New Patient 15:58:26 CDT Catalino Irene MD [facility] CPT-99667 Level 4 Est. Patient 15:42:38 INTERACTIVE DEVELOPER Nadir Hector MD [facility] Procedures Code Procedure Name Date Entry Date Standard Description CPT-000 Give Pneumovax 14:21:01 INTERACTIVE DEVELOPER CPT-000 Give Appropriate Flu Vaccine 14:21:01 INTERACTIVE DEVELOPER CPT-67702 Bone Density 08:41:23 INTERACTIVE DEVELOPER CPT-000 Give Appropriate Flu Vaccine 13:54:35 INTERACTIVE DEVELOPER CPT-000 Give Pneumovax 13:54:35 INTERACTIVE DEVELOPER CPT-27455 Administration 2+ single or combination vaccines inc oral 14:01:24 INTERACTIVE DEVELOPER CPT-07790 Administration single or combination vaccine inc oral 14 :01:24 INTERACTIVE DEVELOPER CPT-16843 Influenza High Dose age 65+ 14:01:24 INTERACTIVE DEVELOPER CPT-54457 Pneumovax 14:01:24 INTERACTIVE DEVELOPER CPT-76729 Venipuncture Draw Fee 10:36:48 CDT CPT-000 Give Appropriate Flu Vaccine 15:20:11 INTERACTIVE DEVELOPER CPT-38465 Administration single or combination vaccine inc oral 15 :50:33 INTERACTIVE DEVELOPER CPT-41475 Influenza High Dose age 65+ 15:50:33 INTERACTIVE DEVELOPER CPT-84115 LS spine AP and Lat 15:30:05 INTERACTIVE DEVELOPER CPT-15371 Hip comp min 2V 15:30:05 INTERACTIVE DEVELOPER CPT-74541 Postop F/U Visit 17:28:18 CDT CPT-OV Office Visit 15:04:38 CDT CPT-66975 Bladder Scan 15:58:26 CDT CPT-32309 Cystoscopy 15:58:26 CDT CPT-OV Office Visit 16:15:09 CDT CPT-000 Give Appropriate Flu Vaccine 16:33:10 INTERACTIVE DEVELOPER CPT-31168 Administration single or combination vaccine inc oral 19 :21:12 INTERACTIVE DEVELOPER CPT-98888 Influenza split virus > age 3 19:21:12 INTERACTIVE DEVELOPER
--- OUTSIDE RECORDS SUMMARY | 2017-07-23 09:16 | XMS REPORT | Clinical Summary ---
Author Author Admin, IMTIAZ Organization [facility] Address Unknown Phone Unavailable Allergies, Adverse [...] MD Routine general medical examination at a the [facility] care facility PERIPHERAL NEUROPATHY 356.9 Active [...] TABS 1 BID for 5 days SULFAMETHOXAZOLE-TRIMETHOPRIM 35800430113 Active Catalino Irene MD Active AMOXICILLIN 500 MG ORAL CAPS tid AMOXICILLIN 68865100403 No Longer Active Catalino Irene MD Active BACTRIM DS TABS Take 1 po BID SULFAMETHOXAZOLE- TRIMETHOPRIM TABS 15921556570 No Longer Active Pam Gomez LPN Active MACROBID 100 MG CAP 1 cap by mouth twice daily NITROFURANTOIN MONOHYD MACRO 76920606417 No Longer Active Pam Gomez LPN Active DIFLUCAN 150 MG TAB 1 tablet by mouth daily FLUCONAZOLE 11878518403 Active Pam Gomez LPN Active CIPRO 250 MG TAB 1 tablet by mouth twice daily CIPROFLOXACIN HCL 29575782183 No Longer Active Pam Gomez LPN Active JANUVIA 100 MG ORAL TABS 1 daily SITAGLIPTIN PHOSPHATE 84628339348 Active Nadir Hector MD Active GLUCOTROL XL 5 MG [id number] one tablet daily GLIPIZIDE 10078398650 No Longer Active Nadir Hector MD Active BACTRIM DS 800-160 MG TABS 1 po BID x 7 days SULFAMETHOXAZOLE-TRIMETHOPRIM 26620561340 No Longer Active Jamal Burrell MD Active FOSAMAX 70 MG TABS 1 po qweek. Take 30min prior to first food/drink. Avoid lying down x 1 hour. ALENDRONATE SODIUM 09265802681 Active Nadir Hector MD Active AMOXICILLIN 500 MG CAPS 2 po BID x 10 days AMOXICILLIN 57726874624 No Longer Active Nadir Hector MD Active JANUVIA 100 MG TABS 1 tablet by mouth daily SITAGLIPTIN PHOSPHATE 57903914504 No Longer Active Nadir Hector MD Active JANUVIA 100 MG TABS Take 1 tab daily SITAGLIPTIN PHOSPHATE 74340628114 No Longer Active Sharon Nuñez Active MACROBID 100 MG CAP 1 cap by mouth twice daily NITROFURANTOIN MONOHYD MACRO 24790274819 No Longer Active Crystal Fernández APRN Active MACRODANTIN 100 MG CAPS 1 capsule by mouth twice daily for seven days NITROFURANTOIN MACROCRYSTAL 25184874718 No Longer Active Ro Yang RN Active BACTRIM DS 800-160 MG TABS one tablet twice a day for seven days SULFAMETHOXAZOLE-TRIMETHOPRIM 23721410057 No Longer Active HEMANTH Griffin Active BACTRIM DS 800-160 MG TABS TAKE ONE TABLET BY MOUTH TWICE DAILY FOR 7 DAYS SULFAMETHOXAZOLE-TRIMETHOPRIM 48278685673 No Longer Active Viviana Lal RN Active CIPRO 250 MG TABS TAKE ONE TABLET BY MOUTH TWICE DAILY FOR 5 DAYS CIPROFLOXACIN HCL 25605413517 No Longer Active Viviana Lal RN Active FLEXERIL 10 MG TABS 1/2 TO 1 TABLET Q12H NEEDED CYCLOBENZAPRINE HCL 97871839188 No Longer Active Viviana Lal RN Active AMLODIPINE BESYLATE 5 MG TABS 1 1/2 daily AMLODIPINE BESYLATE 24059696239 Active Nadir Hector MD Active ONGLYZA 5 MG TABS 1 QAM SAXAGLIPTIN HCL 51623157021 No Longer Active Nadir Hector MD Active AMLODIPINE BESYLATE 5 MG TABS 1 1/2 TABLET DAILY AMLODIPINE BESYLATE 60508117090 No Longer Active Nadir Hector MD Active LORTAB 5-500 MG TABS 1 BY MOUTH Q6H NEEDED HYDROCODONE- ACETAMINOPHEN 28562197572 No Longer Active Nadir Hector MD Active ACTOS 45 MG TABS 1 QD PIOGLITAZONE HCL 93018868009 No Longer Active Nadir Hector MD Active BACTRIM DS 800-160 MG TAB 1 tab by mouth twice daily TRIMETHOPRIM-SULFAMETHOXAZOLE 64869460407 No Longer Active Nadir Hector MD Active CALCIUM + D 600-200 MG-UNIT TABS 1 TABLET TWO TIMES A DAY CALCIUM CARBONATE-VITAMIN D 40378716088 Active Ro Yang RN Active METOPROLOL SUCCINATE 25 MG [id number] 1 QAM METOPROLOL SUCCINATE 11199956931 Active Nadir Hector MD Active AMARYL 4 MG TABS 1 QD GLIMEPIRIDE 27116708701 Active Nadir Hector MD Active LOVASTATIN 40 MG TABS 1 QD LOVASTATIN 07209853509 Active Nadir Hector MD Active GLUCOPHAGE 1000 MG TABS 1 TABLET TWO TIMES A DAY METFORMIN HCL 97391815830 Active Nadir Hector MD Active MAXZIDE-25 37.5-25 MG TABS 1 QD TRIAMTERENE-HCTZ 66390682528 Active Nadir Hector MD Active ACCUPRIL 40 MG TABS 1 QD QUINAPRIL HCL 38293644158 Active Nadir Hector MD Active BACTRIM DS 800-160 MG TAB 1 tab by mouth twice daily BACTRIM DS 800-160 MG TAB TRIMETHOPRIM-SULFAMETHOXAZOLE Inactive ACTOS 45 MG TABS 1 QD ACTOS 45 MG TABS 101617 PIOGLITAZONE HCL Inactive LORTAB 5-500 MG TABS 1 BY MOUTH Q6H NEEDED LORTAB 5-500 MG TABS HYDROCODONE-ACETAMINOPHEN Inactive AMLODIPINE BESYLATE 5 MG TABS 1 1/2 TABLET DAILY AMLODIPINE BESYLATE 5 MG TABS 958540 AMLODIPINE BESYLATE Inactive ONGLYZA 5 MG TABS 1 QAM ONGLYZA 5 MG TABS SAXAGLIPTIN HCL Inactive FLEXERIL 10 MG TABS 1/2 TO 1 TABLET Q12H NEEDED FLEXERIL 10 MG TABS CYCLOBENZAPRINE HCL Inactive CIPRO 250 MG TABS TAKE ONE TABLET BY MOUTH TWICE DAILY FOR 5 DAYS CIPRO 250 MG TABS 849761 CIPROFLOXACIN HCL Inactive BACTRIM DS 800-160 MG TABS TAKE ONE TABLET BY MOUTH TWICE DAILY FOR 7 DAYS BACTRIM DS 800-160 MG TABS SULFAMETHOXAZOLE-TRIMETHOPRIM Inactive BACTRIM DS 800-160 MG TABS one tablet twice a day for seven days BACTRIM DS 800-160 MG TABS SULFAMETHOXAZOLE-TRIMETHOPRIM Inactive MACROBID 100 MG CAP 1 cap by mouth twice daily MACROBID 100 MG CAP 362991 NITROFURANTOIN MONOHYD MACRO Inactive JANUVIA 100 MG TABS Take 1 tab daily JANUVIA 100 MG TABS SITAGLIPTIN PHOSPHATE Inactive GLUCOTROL XL 5 MG [id number] one tablet daily GLUCOTROL XL 5 MG [id number] GLIPIZIDE Inactive MACRODANTIN 100 MG CAPS 1 capsule by mouth twice daily for seven days MACRODANTIN 100 MG CAPS 242616 NITROFURANTOIN MACROCRYSTAL Inactive AMOXICILLIN 500 MG CAPS 2 po BID x 10 days AMOXICILLIN 500 MG CAPS 648553 AMOXICILLIN Inactive BACTRIM DS 800-160 MG TABS 1 po BID x 7 days BACTRIM DS 800-160 MG TABS SULFAMETHOXAZOLE-TRIMETHOPRIM Inactive CIPRO 250 MG TAB 1 tablet by mouth twice daily CIPRO 250 MG TAB 965121 CIPROFLOXACIN HCL Inactive MACROBID 100 MG CAP 1 cap by mouth twice daily MACROBID 100 MG CAP 183182 NITROFURANTOIN MONOHYD MACRO Inactive BACTRIM DS TABS Take 1 po BID BACTRIM DS TABS SULFAMETHOXAZOLE-TRIMETHOPRIM TABS Inactive AMOXICILLIN 500 MG ORAL CAPS tid AMOXICILLIN 500 MG ORAL CAPS 968551 AMOXICILLIN Inactive Advance Directives Directive Description Start Date PERMISSION TO SHARE Immunizations Vaccine Administration Date Value Standard Description pneumococcal immunization administered Pneumovax 23 [CVX33] pneumococcal polysaccharide vaccine, 23 valent Seasonal influenza vaccine, injectable, containing preservative, for > 3 years old (Afluria, FluLaval, Fluzone, Fluvirin, Fluarix, Agriflu(>=18 yo)) Fluzone (>3 yrs.) [QCL603] Influenza, seasonal, injectable Vital Signs Date Name [...] Panel - Chemistry sodium, serum 138 mmol/L 665-085 6280/07/02 urea nitrogen, blood 18 mg/dL 7-18 creatinine, serum 0.90 mg/dL 0.60-1.30 potassium, serum 4.5 mmol/L 3.5-5.2 chloride, serum 101 mmol/L 98-107 carbon dioxide, venous blood 29.1 mmol/L 21.0-32.0 blood glucose 89 mg/dL 65-110 calcium, serum 9.7 mg/dL 8.5-10.1 Lab Report: CBC, MICROALBUMIN - Chemistry albumin/creatinine [...] 2+ mg/dL Negative protein, total urine random Trace mg/dL Negative RBC, urine, dipstick 1+ Negative RBC, urine, dipstick 1+ Negative Lab Report: UADIP W/MICRO, AUTO - Urinalysis urobilinogen, urine, semiquantitative (dipstick) 0.2 Normal leukocyte esterase, urine, by dipstick Trace Negative nitrite, urine, semiquantitative Negative Negative pH, urine, semiquantitative 6.0 5.0-8.5 specific gravity, urine 1.025 1.000-1.030 appearance, urine Clear Clear urine color Yellow Colorless;Lightyellow;Straw;Yellow urobilinogen, urine, semiquantitative (dipstick) 0.2 Normal leukocyte [...] 1.030 1.000-1.030 pH, urine, semiquantitative 6.5 5.0-8.5 urine color Yellow Colorless;Lightyellow;Straw;Yellow appearance, urine SlCloudy [...] strip Negative Negative bilirubin, urine Negative Negative Office Visit: CN recurrent UTI - Chemistry protein, total urine random 4+ mg/dL RBC, urine, dipstick 3+ Office Visit: CN recurrent UTI - Urinalysis specific gravity, urine 1.015 glucose, urine, semiquantitative negative urinalysis, routine Clean Catch urine color red pH, urine, semiquantitative 6.5 appearance, urine cloudy leukocyte esterase, urine, by dipstick 3+ nitrite, urine, semiquantitative negative urobilinogen, urine, semiquantitative (dipstick) 0.2 Encounters Code Encounter Date Provider Facility CPT-96916 Level 2 Est. Patient 18:56:33 CDT Catalino Irene MD [facility] CPT-46549 Level 4 New Patient 14:59:23 CDT Catalino Irene MD [facility] CPT-70597 Level 3 Est. Patient 16:43:04 SHOESHINER Nadir Hector MD [facility] CPT-25605 Level 4 Est. Patient 14:21:01 SHOESHINER Nadir Hector MD [facility] CPT-36486 Level 3 Est. Patient 16:41:34 CDT Nadir Hector MD [facility] CPT-05131 Level 4 Est. Patient 13:54:35 SHOESHINER Nadir Hector MD [facility] CPT-38790 Level 3 Est. Patient 15:51:21 CDT Nadir Hector MD [facility] CPT-92055 Level 4 New Patient 15:58:26 CDT Catalino Irene MD [facility] CPT-34749 Level 4 Est. Patient 15:42:38 SHOESHINER Nadir Hector MD [facility] Procedures Code Procedure Name Date Entry Date Standard Description CPT-59769 Urine Dip (Floor Use Only) 18:56:34 CDT CPT-57020 Urine Dip (Floor Use Only) 14:21:22 CDT CPT-J0561 Bicillin LA 1,200,000 u (PCN G Benzathine) 13:16:19 CDT CPT-67182 Abx/Therapy Injection 13:16:19 CDT CPT-51838 Urine Dip (Floor Use Only) 14:59:25 CDT CPT-49893 Bladder Scan 14:59:24 CDT CPT-19876 Cystoscopy 14:59:24 CDT CPT-84798 Abd single AP View 12:13:13 CDT CPT-000 Give Pneumovax 14:21:01 SHOESHINER CPT-000 Give Appropriate Flu Vaccine 14:21:01 SHOESHINER CPT-17283 Bone Density 08:41:23 SHOESHINER CPT-000 Give Appropriate Flu Vaccine 13:54:35 SHOESHINER CPT-000 Give Pneumovax 13:54:35 SHOESHINER CPT-37270 Administration 2+ single or combination vaccines inc oral 14:01:24 SHOESHINER CPT-61490 Administration single or combination vaccine inc oral 14 :01:24 SHOESHINER CPT-67640 Influenza High Dose age 65+ 14:01:24 SHOESHINER CPT-20403 Pneumovax 14:01:24 SHOESHINER CPT-37181 Venipuncture Draw Fee 10:36:48 CDT CPT-000 Give Appropriate Flu Vaccine 15:20:11 SHOESHINER CPT-29286 Administration single or combination vaccine inc oral 15 :50:33 SHOESHINER CPT-00884 Influenza High Dose age 65+ 15:50:33 SHOESHINER CPT-57468 LS spine AP and Lat 15:30:05 SHOESHINER CPT-11256 Hip comp min 2V 15:30:05 SHOESHINER CPT-23164 Postop F/U Visit 17:28:18 CDT CPT-OV Office Visit 15:04:38 CDT CPT-40562 Bladder Scan 15:58:26 CDT CPT-02223 Cystoscopy 15:58:26 CDT CPT-OV Office Visit 16:15:09 CDT CPT-000 Give Appropriate Flu Vaccine 16:33:10 SHOESHINER CPT-62139 Administration single or combination vaccine inc oral 19 :21:12 SHOESHINER CPT-74951 Influenza split virus > age 3 19:21:12 SHOESHINER
--- OUTSIDE RECORDS SUMMARY | 2017-07-23 09:17 | XMS REPORT | Clinical Summary ---
Author Author Admin, IMTIAZ Organization [facility] Address Unknown Phone Unavailable Allergies, Adverse [...] general medical examination at a [facility] care facility PERIPHERAL NEUROPATHY 356.9 [...] TABS 1 BID for 5 days SULFAMETHOXAZOLE-TRIMETHOPRIM 27900171987 Active Catalino Irene MD Active AMOXICILLIN 500 MG ORAL CAPS tid AMOXICILLIN 36827186262 No Longer Active Catalino Irene MD Active BACTRIM DS TABS Take 1 po BID SULFAMETHOXAZOLE- TRIMETHOPRIM TABS 69485219723 No Longer Active Pam Gomez LPN Active MACROBID 100 MG CAP 1 cap by mouth twice daily NITROFURANTOIN MONOHYD MACRO 14669564008 No Longer Active Pam Thayerell LABORATORY TECHNICAL SPECIALIST Active DIFLUCAN 150 MG TAB 1 tablet by mouth daily FLUCONAZOLE 82118720542 Active Pam Thayerell LABORATORY TECHNICAL SPECIALIST Active CIPRO 250 MG TAB 1 tablet by mouth twice daily CIPROFLOXACIN HCL 18184836663 No Longer Active Pam Thayerell LABORATORY TECHNICAL SPECIALIST Active JANUVIA 100 MG ORAL TABS 1 daily SITAGLIPTIN PHOSPHATE 78513504641 Active Nadir Hector MD Active GLUCOTROL XL 5 MG [id number] one tablet daily GLIPIZIDE 92802769346 No Longer Active Nadir Hector MD Active BACTRIM DS 800-160 MG TABS 1 po BID x 7 days SULFAMETHOXAZOLE-TRIMETHOPRIM 44867946483 No Longer Active Jamal Burrell MD Active FOSAMAX 70 MG TABS 1 po qweek. Take 30min prior to first food/drink. Avoid lying down x 1 hour. ALENDRONATE SODIUM 75957107961 Active Nadir Hector MD Active AMOXICILLIN 500 MG CAPS 2 po BID x 10 days AMOXICILLIN 72534279712 No Longer Active Nadir Hector MD Active JANUVIA 100 MG TABS 1 tablet by mouth daily SITAGLIPTIN PHOSPHATE 43987689647 No Longer Active Nadir Hector MD Active JANUVIA 100 MG TABS Take 1 tab daily SITAGLIPTIN PHOSPHATE 05088005361 No Longer Active Sharon Nuñez Active MACROBID 100 MG CAP 1 cap by mouth twice daily NITROFURANTOIN MONOHYD MACRO 99339618617 No Longer Active Crystal Fernández APRN Active MACRODANTIN 100 MG CAPS 1 capsule by mouth twice daily for seven days NITROFURANTOIN MACROCRYSTAL 78249411709 No Longer Active Ro Yang RN Active BACTRIM DS 800-160 MG TABS one tablet twice a day for seven days SULFAMETHOXAZOLE-TRIMETHOPRIM 86321299167 No Longer Active Sancho [place] , RMA Active BACTRIM DS 800-160 MG TABS TAKE ONE TABLET BY MOUTH TWICE DAILY FOR 7 DAYS SULFAMETHOXAZOLE-TRIMETHOPRIM 27313850854 No Longer Active Viviana Lal RN Active CIPRO 250 MG TABS TAKE ONE TABLET BY MOUTH TWICE DAILY FOR 5 DAYS CIPROFLOXACIN HCL 27857139635 No Longer Active Viviana Lal RN Active FLEXERIL 10 MG TABS 1/2 TO 1 TABLET Q12H NEEDED CYCLOBENZAPRINE HCL 69294810021 No Longer Active Viviana Lal RN Active AMLODIPINE BESYLATE 5 MG TABS 1 1/2 daily AMLODIPINE BESYLATE 50648376695 Active Nadir Hector MD Active ONGLYZA 5 MG TABS 1 QAM SAXAGLIPTIN HCL 03649451891 No Longer Active Nadir Hector MD Active AMLODIPINE BESYLATE 5 MG TABS 1 1/2 TABLET DAILY AMLODIPINE BESYLATE 34266430490 No Longer Active Nadir Hector MD Active LORTAB 5-500 MG TABS 1 BY MOUTH Q6H NEEDED HYDROCODONE- ACETAMINOPHEN 55941384539 No Longer Active Nadir eHctor MD Active ACTOS 45 MG TABS 1 QD PIOGLITAZONE HCL 72963714508 No Longer Active Nadir Hector MD Active BACTRIM DS 800-160 MG TAB 1 tab by mouth twice daily TRIMETHOPRIM-SULFAMETHOXAZOLE 40601091705 No Longer Active Nadir Hector MD Active CALCIUM + D 600-200 MG-UNIT TABS 1 TABLET TWO TIMES A DAY CALCIUM CARBONATE-VITAMIN D 12356034332 Active Ro Yang RN Active METOPROLOL SUCCINATE 25 MG [id number] 1 QAM METOPROLOL SUCCINATE 16068048482 Active Nadir Hector MD Active AMARYL 4 MG TABS 1 QD GLIMEPIRIDE 98037585348 Active Nadir Hector MD Active LOVASTATIN 40 MG TABS 1 QD LOVASTATIN 78129205767 Active Nadir Hector MD Active GLUCOPHAGE 1000 MG TABS 1 TABLET TWO TIMES A DAY METFORMIN HCL 50132151960 Active Nadir Hector MD Active MAXZIDE-25 37.5-25 MG TABS 1 QD TRIAMTERENE-HCTZ 10714911060 Active Nadir Hector MD Active ACCUPRIL 40 MG TABS 1 QD QUINAPRIL HCL 98887854672 Active Nadir Hector MD Active BACTRIM DS 800-160 MG TAB 1 tab by mouth twice daily BACTRIM DS 800-160 MG TAB TRIMETHOPRIM-SULFAMETHOXAZOLE Inactive ACTOS 45 MG TABS 1 QD ACTOS 45 MG TABS 416968 PIOGLITAZONE HCL Inactive LORTAB 5-500 MG TABS 1 BY MOUTH Q6H NEEDED LORTAB 5-500 MG TABS HYDROCODONE-ACETAMINOPHEN Inactive AMLODIPINE BESYLATE 5 MG TABS 1 1/2 TABLET DAILY AMLODIPINE BESYLATE 5 MG TABS 849816 AMLODIPINE BESYLATE Inactive ONGLYZA 5 MG TABS 1 QAM ONGLYZA 5 MG TABS SAXAGLIPTIN HCL Inactive FLEXERIL 10 MG TABS 1/2 TO 1 TABLET Q12H NEEDED FLEXERIL 10 MG TABS CYCLOBENZAPRINE HCL Inactive CIPRO 250 MG TABS TAKE ONE TABLET BY MOUTH TWICE DAILY FOR 5 DAYS CIPRO 250 MG TABS 685886 CIPROFLOXACIN HCL Inactive BACTRIM DS 800-160 MG TABS TAKE ONE TABLET BY MOUTH TWICE DAILY FOR 7 DAYS BACTRIM DS 800-160 MG TABS SULFAMETHOXAZOLE-TRIMETHOPRIM Inactive BACTRIM DS 800-160 MG TABS one tablet twice a day for seven days BACTRIM DS 800-160 MG TABS SULFAMETHOXAZOLE-TRIMETHOPRIM Inactive MACROBID 100 MG CAP 1 cap by mouth twice daily MACROBID 100 MG CAP 597307 NITROFURANTOIN MONOHYD MACRO Inactive JANUVIA 100 MG TABS Take 1 tab daily JANUVIA 100 MG TABS SITAGLIPTIN PHOSPHATE Inactive GLUCOTROL XL 5 MG [id number] one tablet daily GLUCOTROL XL 5 MG [id number] GLIPIZIDE Inactive MACRODANTIN 100 MG CAPS 1 capsule by mouth twice daily for seven days MACRODANTIN 100 MG CAPS 184864 NITROFURANTOIN MACROCRYSTAL Inactive AMOXICILLIN 500 MG CAPS 2 po BID x 10 days AMOXICILLIN 500 MG CAPS 552821 AMOXICILLIN Inactive BACTRIM DS 800-160 MG TABS 1 po BID x 7 days BACTRIM DS 800-160 MG TABS SULFAMETHOXAZOLE-TRIMETHOPRIM Inactive CIPRO 250 MG TAB 1 tablet by mouth twice daily CIPRO 250 MG TAB 516645 CIPROFLOXACIN HCL Inactive MACROBID 100 MG CAP 1 cap by mouth twice daily MACROBID 100 MG CAP 155013 NITROFURANTOIN MONOHYD MACRO Inactive BACTRIM DS TABS Take 1 po BID BACTRIM DS TABS SULFAMETHOXAZOLE-TRIMETHOPRIM TABS Inactive AMOXICILLIN 500 MG ORAL CAPS tid AMOXICILLIN 500 MG ORAL CAPS 026660 AMOXICILLIN Inactive Advance Directives Directive Description Start Date PERMISSION TO SHARE Immunizations Vaccine Administration Date Value Standard Description pneumococcal immunization administered Pneumovax 23 [CVX33] pneumococcal polysaccharide vaccine, 23 valent Seasonal influenza vaccine, injectable, containing preservative, for > 3 years old (Afluria, FluLaval, Fluzone, Fluvirin, Fluarix, Agriflu(>=18 yo)) Fluzone (>3 yrs.) [PZE066] Influenza, seasonal, injectable Vital Signs Date Name [...] Panel - Chemistry sodium, serum 138 mmol/L 300-458 7829/07/02 potassium, serum 4.5 mmol/L 3.5-5.2 chloride, serum [...] HGBA1C - Chemistry sodium, serum 140 mmol/L 966-376 8946/07/23 potassium, serum 4.5 mmol/L 3.5-5.2 chloride, serum [...] dipstick 1+ Negative protein, total urine random 2+ mg/dL Negative RBC, urine, dipstick 3+ Negative RBC, urine, dipstick 3+ Negative Lab [...] 0.2 Encounters Code Encounter Date Provider Facility CPT-36159 Level 4 New Patient 14:59:23 CDT Catalino rIene MD [facility] CPT-21633 Level 3 Est. Patient 16:43:04 ZONING ASSISTANT Nadir Hector MD [facility] CPT-67326 Level 4 Est. Patient 14:21:01 ZONING ASSISTANT Nadir Hector MD [facility] CPT-40453 Level 3 Est. Patient 16:41:34 CDT Nadir Hector MD [facility] CPT-79585 Level 4 Est. Patient 13:54:35 ZONING ASSISTANT Nadir Hector MD [facility] CPT-32169 Level 3 Est. Patient 15:51:21 CDT Nadir Hector MD [facility] CPT-43187 Level 4 New Patient 15:58:26 CDT Catalino Irene MD [facility] CPT-27253 Level 4 Est. Patient 15:42:38 ZONING ASSISTANT Nadir Hector MD [facility] Procedures Code Procedure Name Date Entry Date Standard Description CPT-86420 Urine Dip (Floor Use Only) 14:59:25 CDT CPT-19634 Bladder Scan 14:59:24 CDT CPT-84432 Cystoscopy 14:59:24 CDT CPT-10487 Abd single AP View 12:13:13 CDT CPT-000 Give Pneumovax 14:21:01 ZONING ASSISTANT CPT-000 Give Appropriate Flu Vaccine 14:21:01 ZONING ASSISTANT CPT-05371 Bone Density 08:41:23 ZONING ASSISTANT CPT-000 Give Appropriate Flu Vaccine 13:54:35 ZONING ASSISTANT CPT-000 Give Pneumovax 13:54:35 ZONING ASSISTANT CPT-71865 Administration 2+ single or combination vaccines inc oral 14:01:24 ZONING ASSISTANT CPT-38926 Administration single or combination vaccine inc oral 14 :01:24 ZONING ASSISTANT CPT-44687 Influenza High Dose age 65+ 14:01:24 ZONING ASSISTANT CPT-90762 Pneumovax 14:01:24 ZONING ASSISTANT CPT-60915 Venipuncture Draw Fee 10:36:48 CDT CPT-000 Give Appropriate Flu Vaccine 15:20:11 ZONING ASSISTANT CPT-61149 Administration single or combination vaccine inc oral 15 :50:33 ZONING ASSISTANT CPT-51407 Influenza High Dose age 65+ 15:50:33 ZONING ASSISTANT CPT-18513 LS spine AP and Lat 15:30:05 ZONING ASSISTANT CPT-95950 Hip comp min 2V 15:30:05 ZONING ASSISTANT CPT-65438 Postop F/U Visit 17:28:18 CDT CPT-OV Office Visit 15:04:38 CDT CPT-86774 Bladder Scan 15:58:26 CDT CPT-62325 Cystoscopy 15:58:26 CDT CPT-OV Office Visit 16:15:09 CDT CPT-000 Give Appropriate Flu Vaccine 16:33:10 ZONING ASSISTANT CPT-59308 Administration single or combination vaccine inc oral 19 :21:12 ZONING ASSISTANT CPT-80128 Influenza split virus > age 3 19:21:12 ZONING ASSISTANT
--- OUTSIDE RECORDS SUMMARY | 2017-07-23 09:18 | XMS REPORT | Clinical Summary ---
Author Author Admin, IMTIAZ Organization [facility] Address Unknown Phone Unavailable Allergies, Adverse Reactions, [...] MD Routine general medical examination at a [facility] care facility PERIPHERAL NEUROPATHY 356.9 Active [...] TABS 1 BID for 5 days SULFAMETHOXAZOLE-TRIMETHOPRIM 84633453930 Active Catalino Irene MD Active AMOXICILLIN 500 MG ORAL CAPS tid AMOXICILLIN 45568126213 No Longer Active Catalino Irene MD Active BACTRIM DS TABS Take 1 po BID SULFAMETHOXAZOLE- TRIMETHOPRIM TABS 12910489435 No Longer Active Pam Gomez LPN Active MACROBID 100 MG CAP 1 cap by mouth twice daily NITROFURANTOIN MONOHYD MACRO 01573557705 No Longer Active Pam Gomez LPN Active DIFLUCAN 150 MG TAB 1 tablet by mouth daily FLUCONAZOLE 45889053190 Active Pam Gomez LPN Active CIPRO 250 MG TAB 1 tablet by mouth twice daily CIPROFLOXACIN HCL 74448005564 No Longer Active Pam Gomez LPN Active JANUVIA 100 MG ORAL TABS 1 daily SITAGLIPTIN PHOSPHATE 12750152369 Active Nadir Hector MD Active GLUCOTROL XL 5 MG [id number] one tablet daily GLIPIZIDE 94354653140 No Longer Active Nadri Hector MD Active BACTRIM DS 800-160 MG TABS 1 po BID x 7 days SULFAMETHOXAZOLE-TRIMETHOPRIM 73885205267 No Longer Active Jamal Burrell MD Active FOSAMAX 70 MG TABS 1 po qweek. Take 30min prior to first food/drink. Avoid lying down x 1 hour. ALENDRONATE SODIUM 19044154753 Active Nadir Hector MD Active AMOXICILLIN 500 MG CAPS 2 po BID x 10 days AMOXICILLIN 23764855161 No Longer Active Nadir Hector MD Active JANUVIA 100 MG TABS 1 tablet by mouth daily SITAGLIPTIN PHOSPHATE 88701357992 No Longer Active Nadir Hector MD Active JANUVIA 100 MG TABS Take 1 tab daily SITAGLIPTIN PHOSPHATE 70406343033 No Longer Active Sharon Nuñez Active MACROBID 100 MG CAP 1 cap by mouth twice daily NITROFURANTOIN MONOHYD MACRO 91044097689 No Longer Active Crystal Fernández APRN Active MACRODANTIN 100 MG CAPS 1 capsule by mouth twice daily for seven days NITROFURANTOIN MACROCRYSTAL 45733708009 No Longer Active Ro Yang RN Active BACTRIM DS 800-160 MG TABS one tablet twice a day for seven days SULFAMETHOXAZOLE-TRIMETHOPRIM 84041488719 No Longer Active HEMANTH Griffin Active BACTRIM DS 800-160 MG TABS TAKE ONE TABLET BY MOUTH TWICE DAILY FOR 7 DAYS SULFAMETHOXAZOLE-TRIMETHOPRIM 72222577248 No Longer Active Viviana Lal RN Active CIPRO 250 MG TABS TAKE ONE TABLET BY MOUTH TWICE DAILY FOR 5 DAYS CIPROFLOXACIN HCL 98044514845 No Longer Active Viviana Lal RN Active FLEXERIL 10 MG TABS 1/2 TO 1 TABLET Q12H NEEDED CYCLOBENZAPRINE HCL 77939610286 No Longer Active Viviana Lal RN Active AMLODIPINE BESYLATE 5 MG TABS 1 1/2 daily AMLODIPINE BESYLATE 55160196676 Active Nadir Hector MD Active ONGLYZA 5 MG TABS 1 QAM SAXAGLIPTIN HCL 48616733062 No Longer Active Nadir Hector MD Active AMLODIPINE BESYLATE 5 MG TABS 1 1/2 TABLET DAILY AMLODIPINE BESYLATE 17144416329 No Longer Active Nadir Hector MD Active LORTAB 5-500 MG TABS 1 BY MOUTH Q6H NEEDED HYDROCODONE- ACETAMINOPHEN 63020736559 No Longer Active Nadir Hector MD Active ACTOS 45 MG TABS 1 QD PIOGLITAZONE HCL 16992621640 No Longer Active Nadir Hector MD Active BACTRIM DS 800-160 MG TAB 1 tab by mouth twice daily TRIMETHOPRIM-SULFAMETHOXAZOLE 57100259723 No Longer Active Nadir Hector MD Active CALCIUM + D 600-200 MG-UNIT TABS 1 TABLET TWO TIMES A DAY CALCIUM CARBONATE-VITAMIN D 24696249135 Active Ro Yang RN Active METOPROLOL SUCCINATE 25 MG [id number] 1 QAM METOPROLOL SUCCINATE 71492459828 Active Nadir Hector MD Active AMARYL 4 MG TABS 1 QD GLIMEPIRIDE 94292639028 Active Nadir Hector MD Active LOVASTATIN 40 MG TABS 1 QD LOVASTATIN 42500277859 Active Nadir Hector MD Active GLUCOPHAGE 1000 MG TABS 1 TABLET TWO TIMES A DAY METFORMIN HCL 25612711854 Active Nadir Hector MD Active MAXZIDE-25 37.5-25 MG TABS 1 QD TRIAMTERENE-HCTZ 45178025881 Active Nadir Hector MD Active ACCUPRIL 40 MG TABS 1 QD QUINAPRIL HCL 25458786864 Active Nadir Hector MD Active BACTRIM DS 800-160 MG TAB 1 tab by mouth twice daily BACTRIM DS 800-160 MG TAB TRIMETHOPRIM-SULFAMETHOXAZOLE Inactive ACTOS 45 MG TABS 1 QD ACTOS 45 MG TABS 690702 PIOGLITAZONE HCL Inactive LORTAB 5-500 MG TABS 1 BY MOUTH Q6H NEEDED LORTAB 5-500 MG TABS HYDROCODONE-ACETAMINOPHEN Inactive AMLODIPINE BESYLATE 5 MG TABS 1 1/2 TABLET DAILY AMLODIPINE BESYLATE 5 MG TABS 554337 AMLODIPINE BESYLATE Inactive ONGLYZA 5 MG TABS 1 QAM ONGLYZA 5 MG TABS SAXAGLIPTIN HCL Inactive FLEXERIL 10 MG TABS 1/2 TO 1 TABLET Q12H NEEDED FLEXERIL 10 MG TABS CYCLOBENZAPRINE HCL Inactive CIPRO 250 MG TABS TAKE ONE TABLET BY MOUTH TWICE DAILY FOR 5 DAYS CIPRO 250 MG TABS 361270 CIPROFLOXACIN HCL Inactive BACTRIM DS 800-160 MG TABS TAKE ONE TABLET BY MOUTH TWICE DAILY FOR 7 DAYS BACTRIM DS 800-160 MG TABS SULFAMETHOXAZOLE-TRIMETHOPRIM Inactive BACTRIM DS 800-160 MG TABS one tablet twice a day for seven days BACTRIM DS 800-160 MG TABS SULFAMETHOXAZOLE-TRIMETHOPRIM Inactive MACROBID 100 MG CAP 1 cap by mouth twice daily MACROBID 100 MG CAP 3700363 NITROFURANTOIN MONOHYD MACRO Inactive JANUVIA 100 MG TABS Take 1 tab daily JANUVIA 100 MG TABS SITAGLIPTIN PHOSPHATE Inactive GLUCOTROL XL 5 MG [id number] one tablet daily GLUCOTROL XL 5 MG [id number] GLIPIZIDE Inactive MACRODANTIN 100 MG CAPS 1 capsule by mouth twice daily for seven days MACRODANTIN 100 MG CAPS 5290888 NITROFURANTOIN MACROCRYSTAL Inactive AMOXICILLIN 500 MG CAPS 2 po BID x 10 days AMOXICILLIN 500 MG CAPS 305468 AMOXICILLIN Inactive BACTRIM DS 800-160 MG TABS 1 po BID x 7 days BACTRIM DS 800-160 MG TABS SULFAMETHOXAZOLE-TRIMETHOPRIM Inactive CIPRO 250 MG TAB 1 tablet by mouth twice daily CIPRO 250 MG TAB 678026 CIPROFLOXACIN HCL Inactive MACROBID 100 MG CAP 1 cap by mouth twice daily MACROBID 100 MG CAP 0223229 NITROFURANTOIN MONOHYD MACRO Inactive BACTRIM DS TABS Take 1 po BID BACTRIM DS TABS SULFAMETHOXAZOLE-TRIMETHOPRIM TABS Inactive AMOXICILLIN 500 MG ORAL CAPS tid AMOXICILLIN 500 MG ORAL CAPS 481996 AMOXICILLIN Inactive Advance Directives Directive Description Start Date PERMISSION TO SHARE Immunizations Vaccine Administration Date Value Standard Description pneumococcal immunization administered Pneumovax 23 [CVX33] pneumococcal polysaccharide vaccine, 23 valent Seasonal influenza vaccine, injectable, containing preservative, for > 3 years old (Afluria, FluLaval, Fluzone, Fluvirin, Fluarix, Agriflu(>=18 yo)) Fluzone (>3 yrs.) [[id number]] Influenza, seasonal, injectable Vital Signs Date Name [...] Panel - Chemistry sodium, serum 138 mmol/L 067-366 9231/07/02 potassium, serum 4.5 mmol/L 3.5-5.2 chloride, serum [...] 6.5 Encounters Code Encounter Date Provider Facility CPT-52200 Level 2 Est. Patient 18:56:33 CDT Catalino Irene MD [facility] CPT-01153 Level 4 New Patient 14:59:23 CDT Catalino Irene MD [facility] CPT-15066 Level 3 Est. Patient 16:43:04 ACCOUNTING POLICY CONSULTANT Nadir Hector MD [facility] CPT-01090 Level 4 Est. Patient 14:21:01 ACCOUNTING POLICY CONSULTANT Nadir Hector MD [facility] CPT-02487 Level 3 Est. Patient 16:41:34 CDT Nadir Hector MD [facility] CPT-32810 Level 4 Est. Patient 13:54:35 ACCOUNTING POLICY CONSULTANT Nadir Hector MD [facility] CPT-98516 Level 3 Est. Patient 15:51:21 CDT Nadir Hector MD [facility] CPT-79628 Level 4 New Patient 15:58:26 CDT Catalino Irene MD [facility] CPT-21242 Level 4 Est. Patient 15:42:38 ACCOUNTING POLICY CONSULTANT Nadir Hector MD [facility] Procedures Code Procedure Name Date Entry Date Standard Description CPT-14095 Urine Dip (Floor Use Only) 18:56:34 CDT CPT-79445 Urine Dip (Floor Use Only) 14:21:22 CDT CPT-J0561 Bicillin LA 1,200,000 u (PCN G Benzathine) 13:16:19 CDT CPT-68798 Abx/Therapy Injection 13:16:19 CDT CPT-28754 Urine Dip (Floor Use Only) 14:59:25 CDT CPT-96936 Bladder Scan 14:59:24 CDT CPT-47409 Cystoscopy 14:59:24 CDT CPT-23692 Abd single AP View 12:13:13 CDT CPT-000 Give Pneumovax 14:21:01 ACCOUNTING POLICY CONSULTANT CPT-000 Give Appropriate Flu Vaccine 14:21:01 ACCOUNTING POLICY CONSULTANT CPT-42435 Bone Density 08:41:23 ACCOUNTING POLICY CONSULTANT CPT-000 Give Appropriate Flu Vaccine 13:54:35 ACCOUNTING POLICY CONSULTANT CPT-000 Give Pneumovax 13:54:35 ACCOUNTING POLICY CONSULTANT CPT-46980 Administration 2+ single or combination vaccines inc oral 14:01:24 ACCOUNTING POLICY CONSULTANT CPT-62242 Administration single or combination vaccine inc oral 14 :01:24 ACCOUNTING POLICY CONSULTANT CPT-83746 Influenza High Dose age 65+ 14:01:24 ACCOUNTING POLICY CONSULTANT CPT-42074 Pneumovax 14:01:24 ACCOUNTING POLICY CONSULTANT CPT-07099 Venipuncture Draw Fee 10:36:48 CDT CPT-000 Give Appropriate Flu Vaccine 15:20:11 ACCOUNTING POLICY CONSULTANT CPT-19361 Administration single or combination vaccine inc oral 15 :50:33 ACCOUNTING POLICY CONSULTANT CPT-35267 Influenza High Dose age 65+ 15:50:33 ACCOUNTING POLICY CONSULTANT CPT-28989 LS spine AP and Lat 15:30:05 ACCOUNTING POLICY CONSULTANT CPT-25003 Hip comp min 2V 15:30:05 ACCOUNTING POLICY CONSULTANT CPT-88441 Postop F/U Visit 17:28:18 CDT CPT-OV Office Visit 15:04:38 CDT CPT-02448 Bladder Scan 15:58:26 CDT CPT-10458 Cystoscopy 15:58:26 CDT CPT-OV Office Visit 16:15:09 CDT CPT-000 Give Appropriate Flu Vaccine 16:33:10 ACCOUNTING POLICY CONSULTANT CPT-03059 Administration single or combination vaccine inc oral 19 :21:12 ACCOUNTING POLICY CONSULTANT CPT-66350 Influenza split virus > age 3 19:21:12 ACCOUNTING POLICY CONSULTANT
--- OUTSIDE RECORDS SUMMARY | 2017-07-23 09:18 | XMS REPORT | Clinical Summary ---
Author Author Admin, IMTIAZ Organization [facility] Address Unknown Phone Unavailable Allergies, [...] MD Routine general medical examination at a [facility] care facility PERIPHERAL NEUROPATHY 356.9 Active [...] TABS 1 BID for 5 days SULFAMETHOXAZOLE-TRIMETHOPRIM 21695562700 Active Catalino Irene MD Active AMOXICILLIN 500 MG ORAL CAPS tid AMOXICILLIN 99616138722 No Longer Active Catalino Irene MD Active BACTRIM DS TABS Take 1 po BID SULFAMETHOXAZOLE- TRIMETHOPRIM TABS 90670971884 No Longer Active Pam Gomez LPN Active MACROBID 100 MG CAP 1 cap by mouth twice daily NITROFURANTOIN MONOHYD MACRO 78026202654 No Longer Active Pam Gomez LPN Active DIFLUCAN 150 MG TAB 1 tablet by mouth daily FLUCONAZOLE 32457704640 Active Pam Gomez LPN Active CIPRO 250 MG TAB 1 tablet by mouth twice daily CIPROFLOXACIN HCL 81396722674 No Longer Active Pam Gomze LPN Active JANUVIA 100 MG ORAL TABS 1 daily SITAGLIPTIN PHOSPHATE 32914243535 Active Nadir Hector MD Active GLUCOTROL XL 5 MG [id number] one tablet daily GLIPIZIDE 05837728188 No Longer Active Nadir Hector MD Active BACTRIM DS 800-160 MG TABS 1 po BID x 7 days SULFAMETHOXAZOLE-TRIMETHOPRIM 78032961257 No Longer Active Jamal Burrell MD Active FOSAMAX 70 MG TABS 1 po qweek. Take 30min prior to first food/drink. Avoid lying down x 1 hour. ALENDRONATE SODIUM 01183803140 Active Nadir Hector MD Active AMOXICILLIN 500 MG CAPS 2 po BID x 10 days AMOXICILLIN 37620671366 No Longer Active Nadir Hector MD Active JANUVIA 100 MG TABS 1 tablet by mouth daily SITAGLIPTIN PHOSPHATE 40533695967 No Longer Active Nadir Hector MD Active JANUVIA 100 MG TABS Take 1 tab daily SITAGLIPTIN PHOSPHATE 20714809699 No Longer Active Sharon Nuñez Active MACROBID 100 MG CAP 1 cap by mouth twice daily NITROFURANTOIN MONOHYD MACRO 52626451894 No Longer Active Crystal Fernández APRN Active MACRODANTIN 100 MG CAPS 1 capsule by mouth twice daily for seven days NITROFURANTOIN MACROCRYSTAL 96476351788 No Longer Active Ro Yang RN Active BACTRIM DS 800-160 MG TABS one tablet twice a day for seven days SULFAMETHOXAZOLE-TRIMETHOPRIM 34954744338 No Longer Active HEMANTH Griffin Active BACTRIM DS 800-160 MG TABS TAKE ONE TABLET BY MOUTH TWICE DAILY FOR 7 DAYS SULFAMETHOXAZOLE-TRIMETHOPRIM 36789495432 No Longer Active Viviana Lal RN Active CIPRO 250 MG TABS TAKE ONE TABLET BY MOUTH TWICE DAILY FOR 5 DAYS CIPROFLOXACIN HCL 11120702176 No Longer Active Viviana Lal RN Active FLEXERIL 10 MG TABS 1/2 TO 1 TABLET Q12H NEEDED CYCLOBENZAPRINE HCL 54077067757 No Longer Active Viviana Lal RN Active AMLODIPINE BESYLATE 5 MG TABS 1 1/2 daily AMLODIPINE BESYLATE 03784888102 Active Nadir Hector MD Active ONGLYZA 5 MG TABS 1 QAM SAXAGLIPTIN HCL 44977994398 No Longer Active Nadir Hector MD Active AMLODIPINE BESYLATE 5 MG TABS 1 1/2 TABLET DAILY AMLODIPINE BESYLATE 27342298638 No Longer Active Nadir Hector MD Active LORTAB 5-500 MG TABS 1 BY MOUTH Q6H NEEDED HYDROCODONE- ACETAMINOPHEN 32344505901 No Longer Active Nadir Hector MD Active ACTOS 45 MG TABS 1 QD PIOGLITAZONE HCL 29736358196 No Longer Active Nadir Hector MD Active BACTRIM DS 800-160 MG TAB 1 tab by mouth twice daily TRIMETHOPRIM-SULFAMETHOXAZOLE 98699284393 No Longer Active Nadir Hector MD Active CALCIUM + D 600-200 MG-UNIT TABS 1 TABLET TWO TIMES A DAY CALCIUM CARBONATE-VITAMIN D 58161309795 Active Ro Yang RN Active METOPROLOL SUCCINATE 25 MG [id number] 1 QAM METOPROLOL SUCCINATE 38668191720 Active Nadir Hector MD Active AMARYL 4 MG TABS 1 QD GLIMEPIRIDE 37293735997 Active Nadir Hector MD Active LOVASTATIN 40 MG TABS 1 QD LOVASTATIN 79026379644 Active Nadir Hector MD Active GLUCOPHAGE 1000 MG TABS 1 TABLET TWO TIMES A DAY METFORMIN HCL 24312045258 Active Nadir Hector MD Active MAXZIDE-25 37.5-25 MG TABS 1 QD TRIAMTERENE-HCTZ 55886765931 Active Nadir Hector MD Active ACCUPRIL 40 MG TABS 1 QD QUINAPRIL HCL 65923110966 Active Nadir Hector MD Active BACTRIM DS 800-160 MG TAB 1 tab by mouth twice daily BACTRIM DS 800-160 MG TAB TRIMETHOPRIM-SULFAMETHOXAZOLE Inactive ACTOS 45 MG TABS 1 QD ACTOS 45 MG TABS 119073 PIOGLITAZONE HCL Inactive LORTAB 5-500 MG TABS 1 BY MOUTH Q6H NEEDED LORTAB 5-500 MG TABS HYDROCODONE-ACETAMINOPHEN Inactive AMLODIPINE BESYLATE 5 MG TABS 1 1/2 TABLET DAILY AMLODIPINE BESYLATE 5 MG TABS 937724 AMLODIPINE BESYLATE Inactive ONGLYZA 5 MG TABS 1 QAM ONGLYZA 5 MG TABS SAXAGLIPTIN HCL Inactive FLEXERIL 10 MG TABS 1/2 TO 1 TABLET Q12H NEEDED FLEXERIL 10 MG TABS CYCLOBENZAPRINE HCL Inactive CIPRO 250 MG TABS TAKE ONE TABLET BY MOUTH TWICE DAILY FOR 5 DAYS CIPRO 250 MG TABS 148448 CIPROFLOXACIN HCL Inactive BACTRIM DS 800-160 MG TABS TAKE ONE TABLET BY MOUTH TWICE DAILY FOR 7 DAYS BACTRIM DS 800-160 MG TABS SULFAMETHOXAZOLE-TRIMETHOPRIM Inactive BACTRIM DS 800-160 MG TABS one tablet twice a day for seven days BACTRIM DS 800-160 MG TABS SULFAMETHOXAZOLE-TRIMETHOPRIM Inactive MACROBID 100 MG CAP 1 cap by mouth twice daily MACROBID 100 MG CAP 165491 NITROFURANTOIN MONOHYD MACRO Inactive JANUVIA 100 MG TABS Take 1 tab daily JANUVIA 100 MG TABS SITAGLIPTIN PHOSPHATE Inactive GLUCOTROL XL 5 MG [id number] one tablet daily GLUCOTROL XL 5 MG [id number] GLIPIZIDE Inactive MACRODANTIN 100 MG CAPS 1 capsule by mouth twice daily for seven days MACRODANTIN 100 MG CAPS 960687 NITROFURANTOIN MACROCRYSTAL Inactive AMOXICILLIN 500 MG CAPS 2 po BID x 10 days AMOXICILLIN 500 MG CAPS 727807 AMOXICILLIN Inactive BACTRIM DS 800-160 MG TABS 1 po BID x 7 days BACTRIM DS 800-160 MG TABS SULFAMETHOXAZOLE-TRIMETHOPRIM Inactive CIPRO 250 MG TAB 1 tablet by mouth twice daily CIPRO 250 MG TAB 241849 CIPROFLOXACIN HCL Inactive MACROBID 100 MG CAP 1 cap by mouth twice daily MACROBID 100 MG CAP 479861 NITROFURANTOIN MONOHYD MACRO Inactive BACTRIM DS TABS Take 1 po BID BACTRIM DS TABS SULFAMETHOXAZOLE-TRIMETHOPRIM TABS Inactive AMOXICILLIN 500 MG ORAL CAPS tid AMOXICILLIN 500 MG ORAL CAPS 174322 AMOXICILLIN Inactive Advance Directives Directive Description Start Date PERMISSION TO SHARE Immunizations Vaccine Administration Date Value Standard Description pneumococcal immunization administered Pneumovax 23 [CVX33] pneumococcal polysaccharide vaccine, 23 valent Seasonal influenza vaccine, injectable, containing preservative, for > 3 years old (Afluria, FluLaval, Fluzone, Fluvirin, Fluarix, Agriflu(>=18 yo)) Fluzone (>3 yrs.) [EOK023] Influenza, seasonal, injectable Vital Signs Date Name [...] Panel - Chemistry sodium, serum 138 mmol/L 015-206 8367/07/02 urea nitrogen, blood 18 mg/dL 7-18 creatinine, [...] 4.3-6.0 Lab Report: UADIP (AUTO) - Chemistry RBC, urine, dipstick 3+ Negative protein, total urine random 3+ mg/dL Negative Lab Report: UADIP (AUTO) - Urinalysis glucose, urine, semiquantitative Negative Negative ketones, urine, by test strip Negative Negative bilirubin, urine Negative Negative urine color Straw Colorless;Lightyellow;Straw;Yellow appearance, urine Cloudy Clear specific gravity, urine 1.025 1.000-1.030 pH, urine, semiquantitative 6.0 5.0-8.5 urobilinogen, urine, semiquantitative (dipstick) 0.2 Normal leukocyte esterase, urine, by dipstick 3+ Negative nitrite, urine, semiquantitative Negative Negative Lab Report: UADIP W/MICRO, AUTO - Chemistry RBC, urine, dipstick 3+ Negative protein, total urine random 2+ mg/dL Negative RBC, urine, dipstick 1+ Negative RBC, urine, dipstick 1+ Negative protein, total urine random Trace mg/dL Negative protein, total urine random 2+ mg/dL Negative protein, total urine random 3+ mg/dL [...] 1.030 1.000-1.030 pH, urine, semiquantitative 6.5 5.0-8.5 glucose, urine, semiquantitative Negative Negative urine color Yellow Colorless;Lightyellow;Straw;Yellow ketones, urine, by test strip Negative Negative bilirubin, urine Negative Negative urine color Yellow Colorless;Lightyellow;Straw;Yellow ketones, urine, by test strip Negative Negative bilirubin, urine Negative Negative pH, urine, semiquantitative 6.0 5.0-8.5 glucose, urine, [...] 1+ Negative nitrite, urine, semiquantitative Positive Negative urobilinogen, urine, semiquantitative (dipstick) 0.2 Normal leukocyte esterase, urine, by dipstick Trace Negative nitrite, urine, semiquantitative Negative Negative specific gravity, urine 1.025 1.000-1.030 appearance, urine Clear Clear urine color Yellow Colorless;Lightyellow;Straw;Yellow glucose, urine, semiquantitative Negative Negative ketones, urine, by test strip Negative Negative bilirubin, urine Negative Negative glucose, urine, semiquantitative Negative Negative appearance, urine Cloudy Clear specific gravity, urine 1.025 1.000-1.030 pH, urine, semiquantitative 6.0 5.0-8.5 urobilinogen, urine, semiquantitative (dipstick) 0.2 Normal leukocyte esterase, urine, by dipstick Trace Negative nitrite, urine, semiquantitative Negative Negative appearance, urine SlCloudy Clear specific gravity, urine 1.025 1.000-1.030 pH, urine, semiquantitative 5.5 5.0-8.5 Office Visit: CN recurrent UTI - Chemistry protein, total urine random 4+ mg/dL RBC, urine, dipstick 3+ Office Visit: CN recurrent UTI - Urinalysis specific gravity, urine 1.015 glucose, urine, semiquantitative negative urinalysis, routine Clean Catch pH, urine, semiquantitative 6.5 urine color red appearance, urine cloudy leukocyte esterase, urine, by dipstick 3+ nitrite, urine, semiquantitative negative urobilinogen, urine, semiquantitative (dipstick) 0.2 Encounters Code Encounter Date Provider Facility CPT-14594 Level 2 Est. Patient 18:56:33 CDT Catalino Irene MD [facility] CPT-44580 Level 4 New Patient 14:59:23 CDT Catalino Irene MD [facility] CPT-97644 Level 3 Est. Patient 16:43:04 MULTIPLE PRESSURE RIVETER OPERATOR Nadir Hector MD [facility] CPT-81486 Level 4 Est. Patient 14:21:01 MULTIPLE PRESSURE RIVETER OPERATOR Naidr Hector MD [facility] CPT-95537 Level 3 Est. Patient 16:41:34 CDT Nadir Hector MD [facility] CPT-36789 Level 4 Est. Patient 13:54:35 MULTIPLE PRESSURE RIVETER OPERATOR Nadir Hector MD [facility] CPT-56048 Level 3 Est. Patient 15:51:21 CDT Nadir Hector MD [facility] CPT-64579 Level 4 New Patient 15:58:26 CDT Catalino Irene MD [facility] CPT-48444 Level 4 Est. Patient 15:42:38 MULTIPLE PRESSURE RIVETER OPERATOR Nadir Hector MD [facility] Procedures Code Procedure Name Date Entry Date Standard Description CPT-59021 Urine Dip (Floor Use Only) 18:56:34 CDT CPT-71641 Urine Dip (Floor Use Only) 14:21:22 CDT CPT-J0561 Bicillin LA 1,200,000 u (PCN G Benzathine) 13:16:19 CDT CPT-20999 Abx/Therapy Injection 13:16:19 CDT CPT-85628 Urine Dip (Floor Use Only) 14:59:25 CDT CPT-22831 Bladder Scan 14:59:24 CDT CPT-15768 Cystoscopy 14:59:24 CDT CPT-10960 Abd single AP View 12:13:13 CDT CPT-000 Give Pneumovax 14:21:01 MULTIPLE PRESSURE RIVETER OPERATOR CPT-000 Give Appropriate Flu Vaccine 14:21:01 MULTIPLE PRESSURE RIVETER OPERATOR CPT-09643 Bone Density 08:41:23 MULTIPLE PRESSURE RIVETER OPERATOR CPT-000 Give Appropriate Flu Vaccine 13:54:35 MULTIPLE PRESSURE RIVETER OPERATOR CPT-000 Give Pneumovax 13:54:35 MULTIPLE PRESSURE RIVETER OPERATOR CPT-34332 Administration 2+ single or combination vaccines inc oral 14:01:24 MULTIPLE PRESSURE RIVETER OPERATOR CPT-50898 Administration single or combination vaccine inc oral 14 :01:24 MULTIPLE PRESSURE RIVETER OPERATOR CPT-26478 Influenza High Dose age 65+ 14:01:24 MULTIPLE PRESSURE RIVETER OPERATOR CPT-90946 Pneumovax 14:01:24 MULTIPLE PRESSURE RIVETER OPERATOR CPT-88580 Venipuncture Draw Fee 10:36:48 CDT CPT-000 Give Appropriate Flu Vaccine 15:20:11 MULTIPLE PRESSURE RIVETER OPERATOR CPT-81427 Administration single or combination vaccine inc oral 15 :50:33 MULTIPLE PRESSURE RIVETER OPERATOR CPT-21193 Influenza High Dose age 65+ 15:50:33 MULTIPLE PRESSURE RIVETER OPERATOR CPT-51187 LS spine AP and Lat 15:30:05 MULTIPLE PRESSURE RIVETER OPERATOR CPT-73668 Hip comp min 2V 15:30:05 MULTIPLE PRESSURE RIVETER OPERATOR CPT-94508 Postop F/U Visit 17:28:18 CDT CPT-OV Office Visit 15:04:38 CDT CPT-32827 Bladder Scan 15:58:26 CDT CPT-21795 Cystoscopy 15:58:26 CDT CPT-OV Office Visit 16:15:09 CDT CPT-000 Give Appropriate Flu Vaccine 16:33:10 MULTIPLE PRESSURE RIVETER OPERATOR CPT-94910 Administration single or combination vaccine inc oral 19 :21:12 MULTIPLE PRESSURE RIVETER OPERATOR CPT-29659 Influenza split virus > age 3 19:21:12 MULTIPLE PRESSURE RIVETER OPERATOR
--- OUTSIDE RECORDS SUMMARY | 2017-07-23 09:19 | XMS REPORT | Clinical Summary ---
Author Author Admin, IMTIAZ Organization [facility] Address Unknown Phone Unavailable Allergies, Adverse Reactions, [...] Acute sinusitis, unspecified Menopause, surgical 627.4 Active [facility] Symptomatic states associated with artificial menopause Urinary [...] TAB 1 tablet by mouth daily FLUCONAZOLE 54277051695 No Longer Active Nadir Hector MD Active BACTRIM DS 800-160 MG ORAL TABS 1 BID for 5 days SULFAMETHOXAZOLE-TRIMETHOPRIM 65761816007 No Longer Active Nadir Hector MD Active CIPRO 250 MG TAB 1 tablet by mouth twice daily CIPROFLOXACIN HCL 15700914324 Active Ro Meyer Active AMOXICILLIN 500 MG ORAL CAPS tid AMOXICILLIN 87989478380 No Longer Active Catalino Irene MD Active BACTRIM DS TABS Take 1 po BID SULFAMETHOXAZOLE- TRIMETHOPRIM TABS 92076921638 No Longer Active Pam Gomez LPN Active MACROBID 100 MG CAP 1 cap by mouth twice daily NITROFURANTOIN MONOHYD MACRO 93942581076 No Longer Active Pam Gomez LPN Active CIPRO 250 MG TAB 1 tablet by mouth twice daily CIPROFLOXACIN HCL 61889583151 No Longer Active Pam Gomez LPN Active JANUVIA 100 MG ORAL TABS 1 daily SITAGLIPTIN PHOSPHATE 08407528023 Active Nadir Hector MD Active GLUCOTROL XL 5 MG [id number] one tablet daily GLIPIZIDE 82768893526 No Longer Active Nadir Hector MD Active BACTRIM DS 800-160 MG TABS 1 po BID x 7 days SULFAMETHOXAZOLE-TRIMETHOPRIM 70393206371 No Longer Active Jamal Burrell MD Active FOSAMAX 70 MG TABS 1 po qweek. Take 30min prior to first food/drink. Avoid lying down x 1 hour. ALENDRONATE SODIUM 06073534839 Active Nadir Hector MD Active AMOXICILLIN 500 MG CAPS 2 po BID x 10 days AMOXICILLIN 66468887940 No Longer Active Nadir Hector MD Active JANUVIA 100 MG TABS 1 tablet by mouth daily SITAGLIPTIN PHOSPHATE 82547358066 No Longer Active Nadir Hector MD Active JANUVIA 100 MG TABS Take 1 tab daily SITAGLIPTIN PHOSPHATE 41466404962 No Longer Active Sharon Nuñez Active MACROBID 100 MG CAP 1 cap by mouth twice daily NITROFURANTOIN MONOHYD MACRO 36639342100 No Longer Active Crystal Fernánedz APRN Active MACRODANTIN 100 MG CAPS 1 capsule by mouth twice daily for seven days NITROFURANTOIN MACROCRYSTAL 14146708227 No Longer Active Ro Yang RN Active BACTRIM DS 800-160 MG TABS one tablet twice a day for seven days SULFAMETHOXAZOLE-TRIMETHOPRIM 12881758810 No Longer Active HEMANTH Griffin Active BACTRIM DS 800-160 MG TABS TAKE ONE TABLET BY MOUTH TWICE DAILY FOR 7 DAYS SULFAMETHOXAZOLE-TRIMETHOPRIM 10834246248 No Longer Active Viviana Lal RN Active CIPRO 250 MG TABS TAKE ONE TABLET BY MOUTH TWICE DAILY FOR 5 DAYS CIPROFLOXACIN HCL 38261151702 No Longer Active Viviana Lal RN Active FLEXERIL 10 MG TABS 1/2 TO 1 TABLET Q12H NEEDED CYCLOBENZAPRINE HCL 38795348634 No Longer Active Viviana Lal RN Active AMLODIPINE BESYLATE 5 MG TABS 1 1/2 daily AMLODIPINE BESYLATE 93565405019 Active Nadir Hector MD Active ONGLYZA 5 MG TABS 1 QAM SAXAGLIPTIN HCL 89329513905 No Longer Active Nadir Hector MD Active AMLODIPINE BESYLATE 5 MG TABS 1 1/2 TABLET DAILY AMLODIPINE BESYLATE 78015071726 No Longer Active Nadir Hector MD Active LORTAB 5-500 MG TABS 1 BY MOUTH Q6H NEEDED HYDROCODONE- ACETAMINOPHEN 51890662977 No Longer Active Nadir Hector MD Active ACTOS 45 MG TABS 1 QD PIOGLITAZONE HCL 24443565473 No Longer Active Nadir Hector MD Active BACTRIM DS 800-160 MG TAB 1 tab by mouth twice daily TRIMETHOPRIM-SULFAMETHOXAZOLE 56406976356 No Longer Active Nadir Hector MD Active CALCIUM + D 600-200 MG-UNIT TABS 1 TABLET TWO TIMES A DAY CALCIUM CARBONATE-VITAMIN D 75624782203 Active Ro Yang RN Active METOPROLOL SUCCINATE 25 MG [id number] 1 QAM METOPROLOL SUCCINATE 36566226846 Active Nadir Hector MD Active AMARYL 4 MG TABS 1 QD GLIMEPIRIDE 48989473153 Active Nadir Hector MD Active LOVASTATIN 40 MG TABS 1 QD LOVASTATIN 70134566426 Active Nadir Hector MD Active GLUCOPHAGE 1000 MG TABS 1 TABLET TWO TIMES A DAY METFORMIN HCL 63234466758 Active Nadir Hector MD Active MAXZIDE-25 37.5-25 MG TABS 1 QD TRIAMTERENE-HCTZ 58830538769 Active Nadir Hector MD Active ACCUPRIL 40 MG TABS 1 QD QUINAPRIL HCL 58001574170 Active Nadir Hector MD Active BACTRIM DS 800-160 MG TAB 1 tab by mouth twice daily BACTRIM DS 800-160 MG TAB TRIMETHOPRIM-SULFAMETHOXAZOLE Inactive ACTOS 45 MG TABS 1 QD ACTOS 45 MG TABS 611302 PIOGLITAZONE HCL Inactive LORTAB 5-500 MG TABS 1 BY MOUTH Q6H NEEDED LORTAB 5-500 MG TABS HYDROCODONE-ACETAMINOPHEN Inactive AMLODIPINE BESYLATE 5 MG TABS 1 1/2 TABLET DAILY AMLODIPINE BESYLATE 5 MG TABS 922073 AMLODIPINE BESYLATE Inactive ONGLYZA 5 MG TABS 1 QAM ONGLYZA 5 MG TABS SAXAGLIPTIN HCL Inactive FLEXERIL 10 MG TABS 1/2 TO 1 TABLET Q12H NEEDED FLEXERIL 10 MG TABS CYCLOBENZAPRINE HCL Inactive CIPRO 250 MG TABS TAKE ONE TABLET BY MOUTH TWICE DAILY FOR 5 DAYS CIPRO 250 MG TABS 473152 CIPROFLOXACIN HCL Inactive BACTRIM DS 800-160 MG TABS TAKE ONE TABLET BY MOUTH TWICE DAILY FOR 7 DAYS BACTRIM DS 800-160 MG TABS SULFAMETHOXAZOLE-TRIMETHOPRIM Inactive BACTRIM DS 800-160 MG TABS one tablet twice a day for seven days BACTRIM DS 800-160 MG TABS SULFAMETHOXAZOLE-TRIMETHOPRIM Inactive MACROBID 100 MG CAP 1 cap by mouth twice daily MACROBID 100 MG CAP 1337879 NITROFURANTOIN MONOHYD MACRO Inactive JANUVIA 100 MG TABS Take 1 tab daily JANUVIA 100 MG TABS SITAGLIPTIN PHOSPHATE Inactive GLUCOTROL XL 5 MG [id number] one tablet daily GLUCOTROL XL 5 MG [id number] GLIPIZIDE Inactive BACTRIM DS 800-160 MG ORAL TABS 1 BID for 5 days BACTRIM DS 800-160 MG ORAL TABS SULFAMETHOXAZOLE-TRIMETHOPRIM Inactive DIFLUCAN 150 MG TAB 1 tablet by mouth daily DIFLUCAN 150 MG TAB 366455 FLUCONAZOLE Inactive MACRODANTIN 100 MG CAPS 1 capsule by mouth twice daily for seven days MACRODANTIN 100 MG CAPS 1749156 NITROFURANTOIN MACROCRYSTAL Inactive AMOXICILLIN 500 MG CAPS 2 po BID x 10 days AMOXICILLIN 500 MG CAPS 360931 AMOXICILLIN Inactive BACTRIM DS 800-160 MG TABS 1 po BID x 7 days BACTRIM DS 800-160 MG TABS SULFAMETHOXAZOLE-TRIMETHOPRIM Inactive CIPRO 250 MG TAB 1 tablet by mouth twice daily CIPRO 250 MG TAB 358072 CIPROFLOXACIN HCL Inactive MACROBID 100 MG CAP 1 cap by mouth twice daily MACROBID 100 MG CAP 0020112 NITROFURANTOIN MONOHYD MACRO Inactive BACTRIM DS TABS Take 1 po BID BACTRIM DS TABS SULFAMETHOXAZOLE-TRIMETHOPRIM TABS Inactive AMOXICILLIN 500 MG ORAL CAPS tid AMOXICILLIN 500 MG ORAL CAPS 296121 AMOXICILLIN Inactive Advance Directives Directive Description Start Date PERMISSION TO SHARE Immunizations Vaccine Administration Date Value Standard Description pneumococcal immunization administered Pneumovax 23 [CVX33] pneumococcal polysaccharide vaccine, 23 valent Seasonal influenza vaccine, injectable, containing preservative, for > 3 years old (Afluria, FluLaval, Fluzone, Fluvirin, Fluarix, Agriflu(>=18 yo)) Fluzone (>3 yrs.) [QXH118] Influenza, seasonal, injectable Vital Signs Date Name [...] Panel - Chemistry sodium, serum 138 mmol/L 940-093 6183/07/02 potassium, serum 4.5 mmol/L 3.5-5.2 chloride, serum [...] HGBA1C - Chemistry cholesterol, serum 147 mg/dL 184-529 9738/08/18 triglyceride, serum, fasting 242 mg/dL 30-200 HDL cholesterol, serum 36 mg/dL 32-96 LDL cholesterol, serum 63 mg/dL 0-130 sodium, serum 137 mmol/L 637-906 8727/08/18 potassium, serum 4.7 mmol/L 3.5-5.2 chloride, serum [...] 6.5 Encounters Code Encounter Date Provider Facility CPT-40016 Level 4 Est. Patient 09:54:20 CDT Nadir Hector MD [facility] CPT-67279 Level 2 Est. Patient 18:56:33 CDT Catalino Irene MD [facility] CPT-98927 Level 4 New Patient 14:59:23 CDT Catalino Irene MD [facility] CPT-47416 Level 3 Est. Patient 16:43:04 GOLD TOOLER Nadir Hector MD [facility] CPT-58521 Level 4 Est. Patient 14:21:01 GOLD TOOLER Nadir Hector MD [facility] CPT-69873 Level 3 Est. Patient 16:41:34 CDT Nadir Hector MD [facility] CPT-39452 Level 4 Est. Patient 13:54:35 GOLD TOOLER Nadir Hector MD [facility] CPT-03537 Level 3 Est. Patient 15:51:21 CDT Nadir Hector MD [facility] CPT-41409 Level 4 New Patient 15:58:26 CDT Catalino Irene MD [facility] CPT-47424 Level 4 Est. Patient 15:42:38 GOLD TOOLER Nadir Hector MD [facility] Procedures Code Procedure Name Date Entry Date Standard Description CPT-82764 Urine Dip (Floor Use Only) 18:56:34 CDT CPT-83463 Urine Dip (Floor Use Only) 14:21:22 CDT CPT-J0561 Bicillin LA 1,200,000 u (PCN G Benzathine) 13:16:19 CDT CPT-64173 Abx/Therapy Injection 13:16:19 CDT CPT-03263 Urine Dip (Floor Use Only) 14:59:25 CDT CPT-41517 Bladder Scan 14:59:24 CDT CPT-24300 Cystoscopy 14:59:24 CDT CPT-70539 Abd single AP View 12:13:13 CDT CPT-000 Give Pneumovax 14:21:01 GOLD TOOLER CPT-000 Give Appropriate Flu Vaccine 14:21:01 GOLD TOOLER CPT-23092 Bone Density 08:41:23 GOLD TOOLER CPT-000 Give Appropriate Flu Vaccine 13:54:35 GOLD TOOLER CPT-000 Give Pneumovax 13:54:35 GOLD TOOLER CPT-73190 Administration 2+ single or combination vaccines inc oral 14:01:24 GOLD TOOLER CPT-72086 Administration single or combination vaccine inc oral 14 :01:24 GOLD TOOLER CPT-82405 Influenza High Dose age 65+ 14:01:24 GOLD TOOLER CPT-09341 Pneumovax 14:01:24 GOLD TOOLER CPT-84408 Venipuncture Draw Fee 10:36:48 CDT CPT-000 Give Appropriate Flu Vaccine 15:20:11 GOLD TOOLER CPT-27788 Administration single or combination vaccine inc oral 15 :50:33 GOLD TOOLER CPT-89419 Influenza High Dose age 65+ 15:50:33 GOLD TOOLER CPT-06355 LS spine AP and Lat 15:30:05 GOLD TOOLER CPT-71181 Hip comp min 2V 15:30:05 GOLD TOOLER CPT-89585 Postop F/U Visit 17:28:18 CDT CPT-OV Office Visit 15:04:38 CDT CPT-32714 Bladder Scan 15:58:26 CDT CPT-49231 Cystoscopy 15:58:26 CDT CPT-OV Office Visit 16:15:09 CDT CPT-000 Give Appropriate Flu Vaccine 16:33:10 GOLD TOOLER CPT-77353 Administration single or combination vaccine inc oral 19 :21:12 GOLD TOOLER CPT-86290 Influenza split virus > age 3 19:21:12 GOLD TOOLER
--- OUTSIDE RECORDS SUMMARY | 2017-07-23 09:20 | XMS REPORT | Clinical Summary ---
Author Author Admin, IMTIAZ Organization [facility] Address Unknown Phone Unavailable Allergies, Adverse [...] MD Routine general medical examination at a [facility] care facility PERIPHERAL NEUROPATHY 356.9 Active [...] MUSCULOSKEL SYSTEM NEC V58.78 Active Crystal Fernández CESAR Aftercare following surgery of the musculoskeletal [...] Fernández Symptomatic states associated with artificial menopause Medication List Medication Instructions Start Date Stop Date Generic Name NDC Status Provider Patient Instruction JANUVIA 100 MG ORAL TABS 1 daily SITAGLIPTIN PHOSPHATE 52631920323 Active Nadir Hector MD Active GLUCOTROL XL 5 MG [id number] one tablet daily GLIPIZIDE 13991203168 No Longer Active Nadir Hector MD Active BACTRIM DS 800-160 MG TABS 1 po BID x 7 days SULFAMETHOXAZOLE-TRIMETHOPRIM 82443349035 No Longer Active Jamal Burrell MD Active FOSAMAX 70 MG TABS 1 po qweek. Take 30min prior to first food/drink. Avoid lying down x 1 hour. ALENDRONATE SODIUM 22025688637 Active Nadir Hector MD Active AMOXICILLIN 500 MG CAPS 2 po BID x 10 days AMOXICILLIN 41649195915 No Longer Active Nadir Hector MD Active JANUVIA 100 MG TABS 1 tablet by mouth daily SITAGLIPTIN PHOSPHATE 43543793513 No Longer Active Nadir Hector MD Active JANUVIA 100 MG TABS Take 1 tab daily SITAGLIPTIN PHOSPHATE 77156253907 No Longer Active Sharon Nuñez Active MACROBID 100 MG CAP 1 cap by mouth twice daily NITROFURANTOIN MONOHYD MACRO 41687972660 No Longer Active Crystal Fernández APRN Active MACRODANTIN 100 MG CAPS 1 capsule by mouth twice daily for seven days NITROFURANTOIN MACROCRYSTAL 76927303347 No Longer Active Ro Yang RN Active BACTRIM DS 800-160 MG TABS one tablet twice a day for seven days SULFAMETHOXAZOLE-TRIMETHOPRIM 88343490163 No Longer Active Sancho HEMANTH Camejo Active BACTRIM DS 800-160 MG TABS TAKE ONE TABLET BY MOUTH TWICE DAILY FOR 7 DAYS SULFAMETHOXAZOLE-TRIMETHOPRIM 76982499167 No Longer Active Viviana Lal RN Active CIPRO 250 MG TABS TAKE ONE TABLET BY MOUTH TWICE DAILY FOR 5 DAYS CIPROFLOXACIN HCL 64647508585 No Longer Active Viviana Lal RN Active FLEXERIL 10 MG TABS 1/2 TO 1 TABLET Q12H NEEDED CYCLOBENZAPRINE HCL 94582065438 No Longer Active Viviana Lal RN Active AMLODIPINE BESYLATE 5 MG TABS 1 1/2 daily AMLODIPINE BESYLATE 66314779711 Active Nadir Hector MD Active ONGLYZA 5 MG TABS 1 QAM SAXAGLIPTIN HCL 74336649491 No Longer Active Nadir Hector MD Active AMLODIPINE BESYLATE 5 MG TABS 1 1/2 TABLET DAILY AMLODIPINE BESYLATE 48535183850 No Longer Active Nadir Hector MD Active LORTAB 5-500 MG TABS 1 BY MOUTH Q6H NEEDED HYDROCODONE- ACETAMINOPHEN 60595250764 No Longer Active Nadir Hector MD Active ACTOS 45 MG TABS 1 QD PIOGLITAZONE HCL 28846129481 No Longer Active Nadir Hector MD Active BACTRIM DS 800-160 MG TAB 1 tab by mouth twice daily TRIMETHOPRIM-SULFAMETHOXAZOLE 51814683067 No Longer Active Nadir Hector MD Active CALCIUM + D 600-200 MG-UNIT TABS 1 TABLET TWO TIMES A DAY CALCIUM CARBONATE-VITAMIN D 08095347311 Active Ro Trey CHAMPION Active METOPROLOL SUCCINATE 25 MG [id number] 1 QAM METOPROLOL SUCCINATE 69439158655 Active Nadir Hector MD Active AMARYL 4 MG TABS 1 QD GLIMEPIRIDE 70131490582 Active Nadir Hector MD Active LOVASTATIN 40 MG TABS 1 QD LOVASTATIN 12077177966 Active Nadir Hector MD Active GLUCOPHAGE 1000 MG TABS 1 TABLET TWO TIMES A DAY METFORMIN HCL 51389914650 Active Nadir Hector MD Active MAXZIDE-25 37.5-25 MG TABS 1 QD TRIAMTERENE-HCTZ 10597139483 Active Nadir Hector MD Active ACCUPRIL 40 MG TABS 1 QD QUINAPRIL HCL 05822925078 Active Nadir Hector MD Active BACTRIM DS 800-160 MG TAB 1 tab by mouth twice daily BACTRIM DS 800-160 MG TAB TRIMETHOPRIM-SULFAMETHOXAZOLE Inactive ACTOS 45 MG TABS 1 QD ACTOS 45 MG TABS 204408 PIOGLITAZONE HCL Inactive LORTAB 5-500 MG TABS 1 BY MOUTH Q6H NEEDED LORTAB 5-500 MG TABS HYDROCODONE-ACETAMINOPHEN Inactive AMLODIPINE BESYLATE 5 MG TABS 1 1/2 TABLET DAILY AMLODIPINE BESYLATE 5 MG TABS 909224 AMLODIPINE BESYLATE Inactive ONGLYZA 5 MG TABS [...] mouth twice daily MACROBID 100 MG CAP 932657 NITROFURANTOIN MONOHYD MACRO Inactive JANUVIA 100 MG TABS Take 1 tab daily JANUVIA 100 MG TABS SITAGLIPTIN PHOSPHATE Inactive GLUCOTROL XL 5 MG [id number] one tablet daily GLUCOTROL XL 5 MG [id number] GLIPIZIDE Inactive MACRODANTIN 100 MG CAPS 1 capsule by mouth twice daily for seven days MACRODANTIN 100 MG CAPS 816211 NITROFURANTOIN MACROCRYSTAL Inactive AMOXICILLIN 500 MG CAPS 2 po BID x 10 days AMOXICILLIN 500 MG CAPS 824386 AMOXICILLIN Inactive BACTRIM DS 800-160 MG TABS 1 po BID x 7 days BACTRIM DS 800-160 MG TABS SULFAMETHOXAZOLE-TRIMETHOPRIM Inactive Advance Directives Directive Description Start Date PERMISSION TO SHARE Immunizations Vaccine Administration Date Value Standard Description pneumococcal immunization administered Pneumovax 23 [CVX33] pneumococcal polysaccharide vaccine, 23 valent Seasonal influenza vaccine, injectable, containing preservative, for > 3 years old (Afluria, FluLaval, Fluzone, Fluvirin, Fluarix, Agriflu(>=18 yo)) Fluzone (>3 yrs.) [HZI420] Influenza, seasonal, injectable Vital Signs Date Name [...] HGBA1C - Chemistry sodium, serum 140 mmol/L 278-179 4432/07/23 potassium, serum 4.5 mmol/L 3.5-5.2 chloride, serum [...] Trace Negative nitrite, urine, semiquantitative Negative Negative Encounters Code Encounter Date Provider Facility CPT-90500 Level 3 Est. Patient 16:43:04 CONSTRUCTION SALES MANAGER Nadir Hector MD [facility] CPT-86227 Level 4 Est. Patient 14:21:01 CONSTRUCTION SALES MANAGER Nadir Hector MD [facility] CPT-49128 Level 3 Est. Patient 16:41:34 CDT Nadir Hector MD [facility] CPT-24315 Level 4 Est. Patient 13:54:35 CONSTRUCTION SALES MANAGER Nadir Hector MD [facility] CPT-01979 Level 3 Est. Patient 15:51:21 CDT Nadir Hector MD [facility] CPT-53591 Level 4 New Patient 15:58:26 CDT Catalino Irene MD [facility] CPT-93054 Level 4 Est. Patient 15:42:38 CONSTRUCTION SALES MANAGER Nadir Hector MD [facility] Procedures Code Procedure Name Date Entry Date Standard Description CPT-000 Give Pneumovax 14:21:01 CONSTRUCTION SALES MANAGER CPT-000 Give Appropriate Flu Vaccine 14:21:01 CONSTRUCTION SALES MANAGER CPT-89762 Bone Density 08:41:23 CONSTRUCTION SALES MANAGER CPT-000 Give Appropriate Flu Vaccine 13:54:35 CONSTRUCTION SALES MANAGER CPT-000 Give Pneumovax 13:54:35 CONSTRUCTION SALES MANAGER CPT-49508 Administration 2+ single or combination vaccines inc oral 14:01:24 CONSTRUCTION SALES MANAGER CPT-98520 Administration single or combination vaccine inc oral 14 :01:24 CONSTRUCTION SALES MANAGER CPT-29835 Influenza High Dose age 65+ 14:01:24 CONSTRUCTION SALES MANAGER CPT-67660 Pneumovax 14:01:24 CONSTRUCTION SALES MANAGER CPT-87411 Venipuncture Draw Fee 10:36:48 CDT CPT-000 Give Appropriate Flu Vaccine 15:20:11 CONSTRUCTION SALES MANAGER CPT-78431 Administration single or combination vaccine inc oral 15 :50:33 CONSTRUCTION SALES MANAGER CPT-14869 Influenza High Dose age 65+ 15:50:33 CONSTRUCTION SALES MANAGER CPT-16690 LS spine AP and Lat 15:30:05 CONSTRUCTION SALES MANAGER CPT-49740 Hip comp min 2V 15:30:05 CONSTRUCTION SALES MANAGER CPT-19584 Postop F/U Visit 17:28:18 CDT CPT-OV Office Visit 15:04:38 CDT CPT-72941 Bladder Scan 15:58:26 CDT CPT-05905 Cystoscopy 15:58:26 CDT CPT-OV Office Visit 16:15:09 CDT CPT-000 Give Appropriate Flu Vaccine 16:33:10 CONSTRUCTION SALES MANAGER CPT-01949 Administration single or combination vaccine inc oral 19 :21:12 CONSTRUCTION SALES MANAGER CPT-65277 Influenza split virus > age 3 19:21:12 CONSTRUCTION SALES MANAGER
--- OUTSIDE RECORDS SUMMARY | 2017-07-23 09:21 | XMS REPORT | Clinical Summary ---
Author Author Admin, Re.nooble Organization [employer] Address Unknown Phone Unavailable Allergies, Adverse Reactions, [...] MD Routine general medical examination at a [facility] facility PERIPHERAL NEUROPATHY 356.9 Active Nadir Hector [...] TAB 1 tablet by mouth daily FLUCONAZOLE 87852298823 No Longer Active Nadir Hector MD Active BACTRIM DS 800-160 MG ORAL TABS 1 BID for 5 days SULFAMETHOXAZOLE-TRIMETHOPRIM 81835842750 No Longer Active Nadir Hector MD Active CIPRO 250 MG TAB 1 tablet by mouth twice daily CIPROFLOXACIN HCL 91708581533 No Longer Active Ro Buck Active AMOXICILLIN 500 MG ORAL CAPS tid AMOXICILLIN 01583464140 No Longer Active Catalino Irene MD Active BACTRIM DS TABS Take 1 po BID SULFAMETHOXAZOLE- TRIMETHOPRIM TABS 05978893135 No Longer Active Pam Gomez LPN Active MACROBID 100 MG CAP 1 cap by mouth twice daily NITROFURANTOIN MONOHYD MACRO 69961311065 No Longer Active Pam Gomez LPN Active CIPRO 250 MG TAB 1 tablet by mouth twice daily CIPROFLOXACIN HCL 30305700203 No Longer Active Pam Gomez LPN Active JANUVIA 100 MG ORAL TABS 1 daily SITAGLIPTIN PHOSPHATE 58872001406 Active Nadir Hector MD Active GLUCOTROL XL 5 MG [id number] one tablet daily GLIPIZIDE 23793960917 No Longer Active Nadir Hector MD Active BACTRIM DS 800-160 MG TABS 1 po BID x 7 days SULFAMETHOXAZOLE-TRIMETHOPRIM 35341603519 No Longer Active Jamal Burrell MD Active FOSAMAX 70 MG TABS 1 po qweek. Take 30min prior to first food/drink. Avoid lying down x 1 hour. ALENDRONATE SODIUM 30291138099 Active Nadir Hector MD Active AMOXICILLIN 500 MG CAPS 2 po BID x 10 days AMOXICILLIN 00320166814 No Longer Active Nadir Hector MD Active JANUVIA 100 MG TABS 1 tablet by mouth daily SITAGLIPTIN PHOSPHATE 30102834709 No Longer Active Nadir Hector MD Active JANUVIA 100 MG TABS Take 1 tab daily SITAGLIPTIN PHOSPHATE 45504981424 No Longer Active Sharon Nuñez Active MACROBID 100 MG CAP 1 cap by mouth twice daily NITROFURANTOIN MONOHYD MACRO 15607471093 No Longer Active Crystal Fernández CESAR Active MACRODANTIN 100 MG CAPS 1 capsule by mouth twice daily for seven days NITROFURANTOIN MACROCRYSTAL 42856994191 No Longer Active Ro Yang RN Active BACTRIM DS 800-160 MG TABS one tablet twice a day for seven days SULFAMETHOXAZOLE-TRIMETHOPRIM 10214678046 No Longer Active HEMANTH Griffin Active BACTRIM DS 800-160 MG TABS TAKE ONE TABLET BY MOUTH TWICE DAILY FOR 7 DAYS SULFAMETHOXAZOLE-TRIMETHOPRIM 75562512108 No Longer Active Viviana Lal RN Active CIPRO 250 MG TABS TAKE ONE TABLET BY MOUTH TWICE DAILY FOR 5 DAYS CIPROFLOXACIN HCL 52165655924 No Longer Active Viviana Lal RN Active FLEXERIL 10 MG TABS 1/2 TO 1 TABLET Q12H NEEDED CYCLOBENZAPRINE HCL 92658611609 No Longer Active Viviana Lal RN Active AMLODIPINE BESYLATE 5 MG TABS 1 1/2 daily AMLODIPINE BESYLATE 69750294970 Active Nadir Hector MD Active ONGLYZA 5 MG TABS 1 QAM SAXAGLIPTIN HCL 21355333248 No Longer Active Nadir Hector MD Active AMLODIPINE BESYLATE 5 MG TABS 1 1/2 TABLET DAILY AMLODIPINE BESYLATE 54704015408 No Longer Active Nadir Hector MD Active LORTAB 5-500 MG TABS 1 BY MOUTH Q6H NEEDED HYDROCODONE- ACETAMINOPHEN 10601512467 No Longer Active Nadir Hector MD Active ACTOS 45 MG TABS 1 QD PIOGLITAZONE HCL 17302486900 No Longer Active Nadir Hector MD Active BACTRIM DS 800-160 MG TAB 1 tab by mouth twice daily TRIMETHOPRIM-SULFAMETHOXAZOLE 38462538931 No Longer Active Nadir Hector MD Active CALCIUM + D 600-200 MG-UNIT TABS 1 TABLET TWO TIMES A DAY CALCIUM CARBONATE-VITAMIN D 06995225900 Active Ro Yang RN Active METOPROLOL SUCCINATE 25 MG [id number] 1 QAM METOPROLOL SUCCINATE 52195158192 Active Nadir Hector MD Active AMARYL 4 MG TABS 1 QD GLIMEPIRIDE 40160376172 Active Nadir Hector MD Active LOVASTATIN 40 MG TABS 1 QD LOVASTATIN 40435678168 Active Nadir Hector MD Active GLUCOPHAGE 1000 MG TABS 1 TABLET TWO TIMES A DAY METFORMIN HCL 86495357259 Active Nadir Hector MD Active MAXZIDE-25 37.5-25 MG TABS 1 QD TRIAMTERENE-HCTZ 12163031491 Active Nadir Hector MD Active ACCUPRIL 40 MG TABS 1 QD QUINAPRIL HCL 03743216227 Active Nadir Hector MD Active BACTRIM DS 800-160 MG TAB 1 tab by mouth twice daily BACTRIM DS 800-160 MG TAB 19820615 TRIMETHOPRIM-SULFAMETHOXAZOLE Inactive ACTOS 45 MG TABS 1 QD ACTOS 45 MG TABS 167017 PIOGLITAZONE HCL Inactive LORTAB 5-500 MG TABS 1 BY MOUTH Q6H NEEDED LORTAB 5-500 MG TABS HYDROCODONE-ACETAMINOPHEN Inactive AMLODIPINE BESYLATE 5 MG TABS 1 1/2 TABLET DAILY AMLODIPINE BESYLATE 5 MG TABS 775216 AMLODIPINE BESYLATE Inactive ONGLYZA 5 MG TABS [...] mouth twice daily MACROBID 100 MG CAP 4595111 NITROFURANTOIN MONOHYD MACRO Inactive JANUVIA 100 MG TABS Take 1 tab daily JANUVIA 100 MG TABS SITAGLIPTIN PHOSPHATE Inactive GLUCOTROL XL 5 MG [id number] one tablet daily GLUCOTROL XL 5 MG [id number] GLIPIZIDE Inactive BACTRIM DS 800-160 MG ORAL TABS 1 BID for 5 days BACTRIM DS 800-160 MG ORAL TABS 19820615 SULFAMETHOXAZOLE-TRIMETHOPRIM Inactive DIFLUCAN 150 MG TAB 1 tablet by mouth daily DIFLUCAN 150 MG TAB 644135 FLUCONAZOLE Inactive MACRODANTIN 100 MG CAPS 1 capsule by mouth twice daily for seven days MACRODANTIN 100 MG CAPS 5260969 NITROFURANTOIN MACROCRYSTAL Inactive AMOXICILLIN 500 MG CAPS 2 po BID x 10 days AMOXICILLIN 500 MG CAPS 113889 AMOXICILLIN Inactive BACTRIM DS 800-160 MG TABS 1 po BID x 7 days BACTRIM DS 800-160 MG TABS 186053 SULFAMETHOXAZOLE-TRIMETHOPRIM Inactive CIPRO 250 MG TAB 1 tablet by mouth twice daily CIPRO 250 MG TAB 028760 CIPROFLOXACIN HCL Inactive MACROBID 100 MG CAP 1 cap by mouth twice daily MACROBID 100 MG CAP 5910334 NITROFURANTOIN MONOHYD MACRO Inactive BACTRIM DS TABS Take 1 po BID BACTRIM DS TABS SULFAMETHOXAZOLE-TRIMETHOPRIM TABS Inactive AMOXICILLIN 500 MG ORAL CAPS tid AMOXICILLIN 500 MG ORAL CAPS 124235 AMOXICILLIN Inactive CIPRO 250 MG TAB 1 tablet by mouth twice daily CIPRO 250 MG TAB 643401 CIPROFLOXACIN HCL Inactive Advance Directives Directive Description Start Date PERMISSION TO SHARE Immunizations Vaccine Administration Date Value Standard Description pneumococcal immunization administered Pneumovax 23 [CVX33] pneumococcal polysaccharide vaccine, 23 valent Seasonal influenza vaccine, injectable, containing preservative, for > 3 years old (Afluria, FluLaval, Fluzone, Fluvirin, Fluarix, Agriflu(>=18 yo)) Fluzone (>3 yrs.) [[id number]] Influenza, seasonal, injectable Encounters Code Encounter Date Provider Facility CPT-24090 Level 3 Est. Patient 13:06:50 CDT Catalino Irene MD [facility] CPT-35905 Level 4 Est. Patient 19:00:26 CDT Catalino Irene MD [facility] CPT-08964 Level 2 Est. Patient 07:03:19 CDT Catalino Irene MD [facility] CPT-35532 Level 4 Est. Patient 09:54:20 CDT Nadir Hector MD [facility] CPT-56174 Level 2 Est. Patient 18:56:33 CDT Catalino Irene MD [facility] CPT-89380 Level 4 New Patient 14:59:23 CDT Catalino Irene MD [facility] CPT-57250 Level 3 Est. Patient 16:43:04 SHOP TECH Nadir Hector MD [facility] CPT-50960 Level 4 Est. Patient 14:21:01 SHOP TECH Nadir Hector MD [facility] CPT-70124 Level 3 Est. Patient 16:41:34 CDT Nadir Hector MD [facility] CPT-91594 Level 4 Est. Patient 13:54:35 SHOP TECH Nadir Hector MD [facility] CPT-45137 Level 3 Est. Patient 15:51:21 CDT Nadir Hector MD [facility] CPT-69729 Level 4 New Patient 15:58:26 CDT Catalino Irene MD [facility] CPT-90750 Level 4 Est. Patient 15:42:38 SHOP TECH Nadir Hector MD [facility] Procedures Code Procedure Name Date Entry Date Standard Description CPT-40707 Urine Dip (Floor Use Only) 18:56:34 CDT CPT-99651 Urine Dip (Floor Use Only) 14:21:22 CDT CPT-J0561 Bicillin LA 1,200,000 u (PCN G Benzathine) 13:16:19 CDT CPT-02493 Abx/Therapy Injection 13:16:19 CDT CPT-14764 Urine Dip (Floor Use Only) 14:59:25 CDT CPT-50146 Bladder Scan 14:59:24 CDT CPT-03887 Cystoscopy 14:59:24 CDT CPT-01714 Abd single AP View 12:13:13 CDT CPT-000 Give Pneumovax 14:21:01 SHOP TECH CPT-000 Give Appropriate Flu Vaccine 14:21:01 SHOP TECH CPT-60496 Bone Density 08:41:23 SHOP TECH CPT-000 Give Appropriate Flu Vaccine 13:54:35 SHOP TECH CPT-000 Give Pneumovax 13:54:35 SHOP TECH CPT-31583 Administration 2+ single or combination vaccines inc oral 14:01:24 SHOP TECH CPT-80915 Administration single or combination vaccine inc oral 14 :01:24 SHOP TECH CPT-22624 Influenza High Dose age 65+ 14:01:24 SHOP TECH CPT-95997 Pneumovax 14:01:24 SHOP TECH CPT-85778 Venipuncture Draw Fee 10:36:48 CDT CPT-000 Give Appropriate Flu Vaccine 15:20:11 SHOP TECH CPT-89935 Administration single or combination vaccine inc oral 15 :50:33 SHOP TECH CPT-52585 Influenza High Dose age 65+ 15:50:33 SHOP TECH CPT-17560 LS spine AP and Lat 15:30:05 SHOP TECH CPT-39330 Hip comp min 2V 15:30:05 SHOP TECH CPT-42833 Postop F/U Visit 17:28:18 CDT CPT-OV Office Visit 15:04:38 CDT CPT-72528 Bladder Scan 15:58:26 CDT CPT-46356 Cystoscopy 15:58:26 CDT CPT-OV Office Visit 16:15:09 CDT CPT-000 Give Appropriate Flu Vaccine 16:33:10 SHOP TECH CPT-25467 Administration single or combination vaccine inc oral 19 :21:12 SHOP TECH CPT-24442 Influenza split virus > age 3 19:21:12 SHOP TECH
--- OUTSIDE RECORDS SUMMARY | 2017-07-23 09:21 | XMS REPORT | Clinical Summary ---
Author Author Admin, IMTIAZ Organization [facility] Address Unknown Phone Unavailable Allergies, Adverse [...] MD Routine general medical examination at a [facility] facility PERIPHERAL NEUROPATHY 356.9 Active [...] TABS 1 BID for 5 days SULFAMETHOXAZOLE-TRIMETHOPRIM 58305567165 Active Catalino Irene MD Active AMOXICILLIN 500 MG ORAL CAPS tid AMOXICILLIN 22662130613 No Longer Active Catalino Irene MD Active BACTRIM DS TABS Take 1 po BID SULFAMETHOXAZOLE- TRIMETHOPRIM TABS 46540033198 No Longer Active Pam Gomez LPN Active MACROBID 100 MG CAP 1 cap by mouth twice daily NITROFURANTOIN MONOHYD MACRO 37356100978 No Longer Active Pam Gomez LPN Active DIFLUCAN 150 MG TAB 1 tablet by mouth daily FLUCONAZOLE 67553175021 Active Pam Gomez LPN Active CIPRO 250 MG TAB 1 tablet by mouth twice daily CIPROFLOXACIN HCL 15129513860 No Longer Active Pam Gomez LPN Active JANUVIA 100 MG ORAL TABS 1 daily SITAGLIPTIN PHOSPHATE 96051191646 Active Nadir Hector MD Active GLUCOTROL XL 5 MG [id number] one tablet daily GLIPIZIDE 03464618526 No Longer Active Nadir Hector MD Active BACTRIM DS 800-160 MG TABS 1 po BID x 7 days SULFAMETHOXAZOLE-TRIMETHOPRIM 05281954576 No Longer Active Jamal Burrell MD Active FOSAMAX 70 MG TABS 1 po qweek. Take 30min prior to first food/drink. Avoid lying down x 1 hour. ALENDRONATE SODIUM 47418116156 Active Nadir Hector MD Active AMOXICILLIN 500 MG CAPS 2 po BID x 10 days AMOXICILLIN 33871445259 No Longer Active Nadir Hector MD Active JANUVIA 100 MG TABS 1 tablet by mouth daily SITAGLIPTIN PHOSPHATE 65443738709 No Longer Active Nadir Hector MD Active JANUVIA 100 MG TABS Take 1 tab daily SITAGLIPTIN PHOSPHATE 11862233633 No Longer Active Sharon Nuñez Active MACROBID 100 MG CAP 1 cap by mouth twice daily NITROFURANTOIN MONOHYD MACRO 61284411375 No Longer Active Crystal Fernández APRN Active MACRODANTIN 100 MG CAPS 1 capsule by mouth twice daily for seven days NITROFURANTOIN MACROCRYSTAL 70272337823 No Longer Active Ro Yang RN Active BACTRIM DS 800-160 MG TABS one tablet twice a day for seven days SULFAMETHOXAZOLE-TRIMETHOPRIM 04288470586 No Longer Active HEMANTH Griffin Active BACTRIM DS 800-160 MG TABS TAKE ONE TABLET BY MOUTH TWICE DAILY FOR 7 DAYS SULFAMETHOXAZOLE-TRIMETHOPRIM 92738811184 No Longer Active Viviana Lal RN Active CIPRO 250 MG TABS TAKE ONE TABLET BY MOUTH TWICE DAILY FOR 5 DAYS CIPROFLOXACIN HCL 54293248088 No Longer Active Viviana Lal RN Active FLEXERIL 10 MG TABS 1/2 TO 1 TABLET Q12H NEEDED CYCLOBENZAPRINE HCL 30913528897 No Longer Active Viviana Lal RN Active AMLODIPINE BESYLATE 5 MG TABS 1 1/2 daily AMLODIPINE BESYLATE 17884177506 Active Nadir Hector MD Active ONGLYZA 5 MG TABS 1 QAM SAXAGLIPTIN HCL 39779710209 No Longer Active Nadir Hector MD Active AMLODIPINE BESYLATE 5 MG TABS 1 1/2 TABLET DAILY AMLODIPINE BESYLATE 01385618118 No Longer Active Nadir Hector MD Active LORTAB 5-500 MG TABS 1 BY MOUTH Q6H NEEDED HYDROCODONE- ACETAMINOPHEN 77708284063 No Longer Active Nadir Hector MD Active ACTOS 45 MG TABS 1 QD PIOGLITAZONE HCL 26428301652 No Longer Active Nadir Hector MD Active BACTRIM DS 800-160 MG TAB 1 tab by mouth twice daily TRIMETHOPRIM-SULFAMETHOXAZOLE 43119255262 No Longer Active Nadir Hector MD Active CALCIUM + D 600-200 MG-UNIT TABS 1 TABLET TWO TIMES A DAY CALCIUM CARBONATE-VITAMIN D 73396792292 Active Ro Yang RN Active METOPROLOL SUCCINATE 25 MG [id number] 1 QAM METOPROLOL SUCCINATE 34470987381 Active Nadir Hector MD Active AMARYL 4 MG TABS 1 QD GLIMEPIRIDE 30566842075 Active Nadir Hector MD Active LOVASTATIN 40 MG TABS 1 QD LOVASTATIN 82713740709 Active Nadir Hector MD Active GLUCOPHAGE 1000 MG TABS 1 TABLET TWO TIMES A DAY METFORMIN HCL 08566037044 Active Nadir Hector MD Active MAXZIDE-25 37.5-25 MG TABS 1 QD TRIAMTERENE-HCTZ 07117405899 Active Nadir Hector MD Active ACCUPRIL 40 MG TABS 1 QD QUINAPRIL HCL 68542395975 Active Nadir Hector MD Active BACTRIM DS 800-160 MG TAB 1 tab by mouth twice daily BACTRIM DS 800-160 MG TAB TRIMETHOPRIM-SULFAMETHOXAZOLE Inactive ACTOS 45 MG TABS 1 QD ACTOS 45 MG TABS 834832 PIOGLITAZONE HCL Inactive LORTAB 5-500 MG TABS 1 BY MOUTH Q6H NEEDED LORTAB 5-500 MG TABS HYDROCODONE-ACETAMINOPHEN Inactive AMLODIPINE BESYLATE 5 MG TABS 1 1/2 TABLET DAILY AMLODIPINE BESYLATE 5 MG TABS 228586 AMLODIPINE BESYLATE Inactive ONGLYZA 5 MG TABS 1 QAM ONGLYZA 5 MG TABS SAXAGLIPTIN HCL Inactive FLEXERIL 10 MG TABS 1/2 TO 1 TABLET Q12H NEEDED FLEXERIL 10 MG TABS CYCLOBENZAPRINE HCL Inactive CIPRO 250 MG TABS TAKE ONE TABLET BY MOUTH TWICE DAILY FOR 5 DAYS CIPRO 250 MG TABS 467689 CIPROFLOXACIN HCL Inactive BACTRIM DS 800-160 MG TABS TAKE ONE TABLET BY MOUTH TWICE DAILY FOR 7 DAYS BACTRIM DS 800-160 MG TABS SULFAMETHOXAZOLE-TRIMETHOPRIM Inactive BACTRIM DS 800-160 MG TABS one tablet twice a day for seven days BACTRIM DS 800-160 MG TABS SULFAMETHOXAZOLE-TRIMETHOPRIM Inactive MACROBID 100 MG CAP 1 cap by mouth twice daily MACROBID 100 MG CAP 632359 NITROFURANTOIN MONOHYD MACRO Inactive JANUVIA 100 MG TABS Take 1 tab daily JANUVIA 100 MG TABS SITAGLIPTIN PHOSPHATE Inactive GLUCOTROL XL 5 MG [id number] one tablet daily GLUCOTROL XL 5 MG [id number] GLIPIZIDE Inactive MACRODANTIN 100 MG CAPS 1 capsule by mouth twice daily for seven days MACRODANTIN 100 MG CAPS 573882 NITROFURANTOIN MACROCRYSTAL Inactive AMOXICILLIN 500 MG CAPS 2 po BID x 10 days AMOXICILLIN 500 MG CAPS 377331 AMOXICILLIN Inactive BACTRIM DS 800-160 MG TABS 1 po BID x 7 days BACTRIM DS 800-160 MG TABS SULFAMETHOXAZOLE-TRIMETHOPRIM Inactive CIPRO 250 MG TAB 1 tablet by mouth twice daily CIPRO 250 MG TAB 010740 CIPROFLOXACIN HCL Inactive MACROBID 100 MG CAP 1 cap by mouth twice daily MACROBID 100 MG CAP 861854 NITROFURANTOIN MONOHYD MACRO Inactive BACTRIM DS TABS Take 1 po BID BACTRIM DS TABS SULFAMETHOXAZOLE-TRIMETHOPRIM TABS Inactive AMOXICILLIN 500 MG ORAL CAPS tid AMOXICILLIN 500 MG ORAL CAPS 180294 AMOXICILLIN Inactive Advance Directives Directive Description Start Date PERMISSION TO SHARE Immunizations Vaccine Administration Date Value Standard Description pneumococcal immunization administered Pneumovax 23 [CVX33] pneumococcal polysaccharide vaccine, 23 valent Seasonal influenza vaccine, injectable, containing preservative, for > 3 years old (Afluria, FluLaval, Fluzone, Fluvirin, Fluarix, Agriflu(>=18 yo)) Fluzone (>3 yrs.) [[id number]] Influenza, seasonal, injectable Vital Signs Date Name [...] Panel - Chemistry sodium, serum 138 mmol/L 478-978 7567/07/02 potassium, serum 4.5 mmol/L 3.5-5.2 chloride, serum [...] 6.5 Encounters Code Encounter Date Provider Facility CPT-12802 Level 4 New Patient 14:59:23 CDT Catalino Irene MD [facility] CPT-13501 Level 3 Est. Patient 16:43:04 [employer]OWERPL[employer] REPAIRER Nadir Hector MD [facility] CPT-42710 Level 4 Est. Patient 14:21:01 [employer] POWERPLANT REPAIRER Nadir Hector MD [facility] CPT-72527 Level 3 Est. Patient 16:41:34 CDT Nadir Hector MD [facility] CPT-80384 Level 4 Est. Patient 13:54:35 [employer] POWERPLANT REPAIRER Nadir Hector MD [facility] CPT-25870 Level 3 Est. Patient 15:51:21 CDT Nadir Hector MD [facility] CPT-75349 Level 4 New Patient 15:58:26 CDT Catalino Irene MD [facility] CPT-68592 Level 4 Est. Patient 15:42:38 [employer] POWERPLANT REPAIRER Nadir Hector MD [facility] Procedures Code Procedure Name Date Entry Date Standard Description CPT-J0561 Bicillin LA 1,200,000 u (PCN G Benzathine) 13:16:19 CDT CPT-65257 Abx/Therapy Injection 13:16:19 CDT CPT-35841 Urine Dip (Floor Use Only) 14:59:25 CDT CPT-81736 Bladder Scan 14:59:24 CDT CPT-92588 Cystoscopy 14:59:24 CDT CPT-99032 Abd single AP View 12:13:13 CDT CPT-000 Give Pneumovax 14:21:01 [employer] REPAIRER CPT-000 Give Appropriate Flu Vaccine 14:21:01 [employer] REPAIRER CPT-02542 Bone Density 08:41:23 [employer] POWERPLANT REPAIRER CPT-000 Give Appropriate Flu Vaccine 13:54:35 [employer] POWERPLANT REPAIRER CPT-000 Give Pneumovax 13:54:35 [employer]OWERPLANT REPAIRER CPT-47864 Administration 2+ single or combination vaccines inc oral 14:01:24 [employer]OWER[employer] REPAIRER CPT-65689 Administration single or combination vaccine inc oral 14 :01:24 [employer] POWERPL[employer] REPAIRER CPT-72951 Influenza High Dose age 65+ 14:01:24 [employer] POWERPLANT REPAIRER CPT-85133 Pneumovax 14:01:24 [employer] POWERPLANT REPAIRER CPT-81353 Venipuncture Draw Fee 10:36:48 CDT CPT-000 Give Appropriate Flu Vaccine 15:20:11 [employer] REPAIRER CPT-31694 Administration single or combination vaccine inc oral 15 :50:33 [employer] REPAIRER CPT-08194 Influenza High Dose age 65+ 15:50:33 [employer] REPAIRER CPT-82557 LS spine AP and Lat 15:30:05 [employer] REPAIR[employer] CPT-11964 Hip comp min 2V 15:30:05 [employer] REPAIRER CPT-23849 Postop F/U Visit 17:28:18 CDT CPT-OV Office Visit 15:04:38 CDT CPT-99911 Bladder Scan 15:58:26 CDT CPT-35445 Cystoscopy 15:58:26 CDT CPT-OV Office Visit 16:15:09 CDT CPT-000 Give Appropriate Flu Vaccine 16:33:10 [employer] REPAIRER CPT-31380 Administration single or combination vaccine inc oral 19 :21:12 [employer] REPAIRER CPT-67697 Influenza split virus > age 3 19:21:12 [employer]FT POWERPLANT REPAIRER
--- OUTSIDE RECORDS SUMMARY | 2017-07-23 09:23 | XMS REPORT | Clinical Summary ---
Author Author Admin, IMTIAZ Organization [facility] Address Unknown Phone Unavailable Allergies, [...] sinusitis, unspecified Menopause, surgical 627.4 Active [facility] Symptomatic states associated with artificial menopause [...] TAB 1 tablet by mouth daily FLUCONAZOLE 34314925773 No Longer Active Nadir Hector MD Active BACTRIM DS 800-160 MG ORAL TABS 1 BID for 5 days SULFAMETHOXAZOLE-TRIMETHOPRIM 80885386259 No Longer Active Nadir Hector MD Active CIPRO 250 MG TAB 1 tablet by mouth twice daily CIPROFLOXACIN HCL 15488735295 Active Ro Meyer Active AMOXICILLIN 500 MG ORAL CAPS tid AMOXICILLIN 40799770793 No Longer Active Catalino Irene MD Active BACTRIM DS TABS Take 1 po BID SULFAMETHOXAZOLE- TRIMETHOPRIM TABS 63148257835 No Longer Active Pam Gomez LPN Active MACROBID 100 MG CAP 1 cap by mouth twice daily NITROFURANTOIN MONOHYD MACRO 25795593664 No Longer Active Pam Gomez LPN Active CIPRO 250 MG TAB 1 tablet by mouth twice daily CIPROFLOXACIN HCL 36036647891 No Longer Active Pam Gomez LPN Active JANUVIA 100 MG ORAL TABS 1 daily SITAGLIPTIN PHOSPHATE 04024599987 Active Nadir Hector MD Active GLUCOTROL XL 5 MG [id number] one tablet daily GLIPIZIDE 95715088042 No Longer Active Nadir Hector MD Active BACTRIM DS 800-160 MG TABS 1 po BID x 7 days SULFAMETHOXAZOLE-TRIMETHOPRIM 12711203561 No Longer Active Jamal Burrell MD Active FOSAMAX 70 MG TABS 1 po qweek. Take 30min prior to first food/drink. Avoid lying down x 1 hour. ALENDRONATE SODIUM 95855969805 Active Nadir Hector MD Active AMOXICILLIN 500 MG CAPS 2 po BID x 10 days AMOXICILLIN 91369356091 No Longer Active Nadir Hector MD Active JANUVIA 100 MG TABS 1 tablet by mouth daily SITAGLIPTIN PHOSPHATE 57212968075 No Longer Active Nadir Hector MD Active JANUVIA 100 MG TABS Take 1 tab daily SITAGLIPTIN PHOSPHATE 97302029863 No Longer Active Sharon Nuñez Active MACROBID 100 MG CAP 1 cap by mouth twice daily NITROFURANTOIN MONOHYD MACRO 30902794417 No Longer Active Crystal Fernández APRN Active MACRODANTIN 100 MG CAPS 1 capsule by mouth twice daily for seven days NITROFURANTOIN MACROCRYSTAL 95761176218 No Longer Active Ro Yang RN Active BACTRIM DS 800-160 MG TABS one tablet twice a day for seven days SULFAMETHOXAZOLE-TRIMETHOPRIM 99932776993 No Longer Active HEMANTH Griffin Active BACTRIM DS 800-160 MG TABS TAKE ONE TABLET BY MOUTH TWICE DAILY FOR 7 DAYS SULFAMETHOXAZOLE-TRIMETHOPRIM 02491413937 No Longer Active Viviana Lal RN Active CIPRO 250 MG TABS TAKE ONE TABLET BY MOUTH TWICE DAILY FOR 5 DAYS CIPROFLOXACIN HCL 77312465725 No Longer Active Viviana Lal RN Active FLEXERIL 10 MG TABS 1/2 TO 1 TABLET Q12H NEEDED CYCLOBENZAPRINE HCL 91473653458 No Longer Active Viviana Lal RN Active AMLODIPINE BESYLATE 5 MG TABS 1 1/2 daily AMLODIPINE BESYLATE 36832631512 Active Nadir Hector MD Active ONGLYZA 5 MG TABS 1 QAM SAXAGLIPTIN HCL 44943934891 No Longer Active Nadir Hector MD Active AMLODIPINE BESYLATE 5 MG TABS 1 1/2 TABLET DAILY AMLODIPINE BESYLATE 18933440002 No Longer Active Nadir Hector MD Active LORTAB 5-500 MG TABS 1 BY MOUTH Q6H NEEDED HYDROCODONE- ACETAMINOPHEN 11317178258 No Longer Active Nadir Hector MD Active ACTOS 45 MG TABS 1 QD PIOGLITAZONE HCL 17478347731 No Longer Active Nadir Hector MD Active BACTRIM DS 800-160 MG TAB 1 tab by mouth twice daily TRIMETHOPRIM-SULFAMETHOXAZOLE 47663202189 No Longer Active Nadir Hector MD Active CALCIUM + D 600-200 MG-UNIT TABS 1 TABLET TWO TIMES A DAY CALCIUM CARBONATE-VITAMIN D 85783517472 Active Ro Yang RN Active METOPROLOL SUCCINATE 25 MG [id number] 1 QAM METOPROLOL SUCCINATE 12203759180 Active Nadir Hector MD Active AMARYL 4 MG TABS 1 QD GLIMEPIRIDE 63108278197 Active Nadir Hector MD Active LOVASTATIN 40 MG TABS 1 QD LOVASTATIN 21074931581 Active Nadir Hector MD Active GLUCOPHAGE 1000 MG TABS 1 TABLET TWO TIMES A DAY METFORMIN HCL 63158641603 Active Nadir Hector MD Active MAXZIDE-25 37.5-25 MG TABS 1 QD TRIAMTERENE-HCTZ 59598148550 Active Nadir Hector MD Active ACCUPRIL 40 MG TABS 1 QD QUINAPRIL HCL 00234193042 Active Nadir Hector MD Active BACTRIM DS 800-160 MG TAB 1 tab by mouth twice daily BACTRIM DS 800-160 MG TAB TRIMETHOPRIM-SULFAMETHOXAZOLE Inactive ACTOS 45 MG TABS 1 QD ACTOS 45 MG TABS 903888 PIOGLITAZONE HCL Inactive LORTAB 5-500 MG TABS 1 BY MOUTH Q6H NEEDED LORTAB 5-500 MG TABS HYDROCODONE-ACETAMINOPHEN Inactive AMLODIPINE BESYLATE 5 MG TABS 1 1/2 TABLET DAILY AMLODIPINE BESYLATE 5 MG TABS 388500 AMLODIPINE BESYLATE Inactive ONGLYZA 5 MG TABS 1 QAM ONGLYZA 5 MG TABS SAXAGLIPTIN HCL Inactive FLEXERIL 10 MG TABS 1/2 TO 1 TABLET Q12H NEEDED FLEXERIL 10 MG TABS CYCLOBENZAPRINE HCL Inactive CIPRO 250 MG TABS TAKE ONE TABLET BY MOUTH TWICE DAILY FOR 5 DAYS CIPRO 250 MG TABS 118638 CIPROFLOXACIN HCL Inactive BACTRIM DS 800-160 MG TABS TAKE ONE TABLET BY MOUTH TWICE DAILY FOR 7 DAYS BACTRIM DS 800-160 MG TABS SULFAMETHOXAZOLE-TRIMETHOPRIM Inactive BACTRIM DS 800-160 MG TABS one tablet twice a day for seven days BACTRIM DS 800-160 MG TABS SULFAMETHOXAZOLE-TRIMETHOPRIM Inactive MACROBID 100 MG CAP 1 cap by mouth twice daily MACROBID 100 MG CAP 3864898 NITROFURANTOIN MONOHYD MACRO Inactive JANUVIA 100 MG TABS Take 1 tab daily JANUVIA 100 MG TABS SITAGLIPTIN PHOSPHATE Inactive GLUCOTROL XL 5 MG [id number] one tablet daily GLUCOTROL XL 5 MG [id number] GLIPIZIDE Inactive BACTRIM DS 800-160 MG ORAL TABS 1 BID for 5 days BACTRIM DS 800-160 MG ORAL TABS SULFAMETHOXAZOLE-TRIMETHOPRIM Inactive DIFLUCAN 150 MG TAB 1 tablet by mouth daily DIFLUCAN 150 MG TAB 330540 FLUCONAZOLE Inactive MACRODANTIN 100 MG CAPS 1 capsule by mouth twice daily for seven days MACRODANTIN 100 MG CAPS 9841040 NITROFURANTOIN MACROCRYSTAL Inactive AMOXICILLIN 500 MG CAPS 2 po BID x 10 days AMOXICILLIN 500 MG CAPS 358443 AMOXICILLIN Inactive BACTRIM DS 800-160 MG TABS 1 po BID x 7 days BACTRIM DS 800-160 MG TABS SULFAMETHOXAZOLE-TRIMETHOPRIM Inactive CIPRO 250 MG TAB 1 tablet by mouth twice daily CIPRO 250 MG TAB 731479 CIPROFLOXACIN HCL Inactive MACROBID 100 MG CAP 1 cap by mouth twice daily MACROBID 100 MG CAP 7784228 NITROFURANTOIN MONOHYD MACRO Inactive BACTRIM DS TABS Take 1 po BID BACTRIM DS TABS SULFAMETHOXAZOLE-TRIMETHOPRIM TABS Inactive AMOXICILLIN 500 MG ORAL CAPS tid AMOXICILLIN 500 MG ORAL CAPS 251880 AMOXICILLIN Inactive Advance Directives Directive Description Start Date PERMISSION TO SHARE Immunizations Vaccine Administration Date Value Standard Description pneumococcal immunization administered Pneumovax 23 [CVX33] pneumococcal polysaccharide vaccine, 23 valent Seasonal influenza vaccine, injectable, containing preservative, for > 3 years old (Afluria, FluLaval, Fluzone, Fluvirin, Fluarix, Agriflu(>=18 yo)) Fluzone (>3 yrs.) [[id number]] Influenza, seasonal, injectable Vital Signs Date Name [...] Panel - Chemistry sodium, serum 138 mmol/L 712-628 3536/07/02 potassium, serum 4.5 mmol/L 3.5-5.2 chloride, serum [...] HGBA1C - Chemistry cholesterol, serum 147 mg/dL 984-435 4575/08/18 triglyceride, serum, fasting 242 mg/dL 30-200 HDL cholesterol, serum 36 mg/dL 32-96 LDL cholesterol, serum 63 mg/dL 0-130 sodium, serum 137 mmol/L 927-478 3765/08/18 potassium, serum 4.7 mmol/L 3.5-5.2 chloride, serum [...] 6.5 Encounters Code Encounter Date Provider Facility CPT-40680 Level 4 Est. Patient 09:54:20 CDT Nadir Hector MD [facility] CPT-38895 Level 2 Est. Patient 18:56:33 CDT Catalino Irene MD [facility] CPT-85436 Level 4 New Patient 14:59:23 CDT Catalino Irene MD [facility] CPT-90874 Level 3 Est. Patient 16:43:04 BUILDING ENERGY RETROFIT TECHNICIAN Nadir Hector MD [facility] CPT-21961 Level 4 Est. Patient 14:21:01 BUILDING ENERGY RETROFIT TECHNICIAN Nadir Hector MD [facility] CPT-27169 Level 3 Est. Patient 16:41:34 CDT Nadir Hector MD [facility] CPT-14093 Level 4 Est. Patient 13:54:35 BUILDING ENERGY RETROFIT TECHNICIAN Nadir Hector MD [facility] CPT-30143 Level 3 Est. Patient 15:51:21 CDT Nadir Hector MD [facility] CPT-67552 Level 4 New Patient 15:58:26 CDT Catalino Irene MD [facility] CPT-72772 Level 4 Est. Patient 15:42:38 BUILDING ENERGY RETROFIT TECHNICIAN Nadir Hector MD [facility] Procedures Code Procedure Name Date Entry Date Standard Description CPT-52478 Urine Dip (Floor Use Only) 18:56:34 CDT CPT-50998 Urine Dip (Floor Use Only) 14:21:22 CDT CPT-J0561 Bicillin LA 1,200,000 u (PCN G Benzathine) 13:16:19 CDT CPT-83577 Abx/Therapy Injection 13:16:19 CDT CPT-12427 Urine Dip (Floor Use Only) 14:59:25 CDT CPT-62307 Bladder Scan 14:59:24 CDT CPT-22640 Cystoscopy 14:59:24 CDT CPT-24031 Abd single AP View 12:13:13 CDT CPT-000 Give Pneumovax 14:21:01 BUILDING ENERGY RETROFIT TECHNICIAN CPT-000 Give Appropriate Flu Vaccine 14:21:01 BUILDING ENERGY RETROFIT TECHNICIAN CPT-39562 Bone Density 08:41:23 BUILDING ENERGY RETROFIT TECHNICIAN CPT-000 Give Appropriate Flu Vaccine 13:54:35 BUILDING ENERGY RETROFIT TECHNICIAN CPT-000 Give Pneumovax 13:54:35 BUILDING ENERGY RETROFIT TECHNICIAN CPT-70948 Administration 2+ single or combination vaccines inc oral 14:01:24 BUILDING ENERGY RETROFIT TECHNICIAN CPT-00931 Administration single or combination vaccine inc oral 14 :01:24 BUILDING ENERGY RETROFIT TECHNICIAN CPT-40523 Influenza High Dose age 65+ 14:01:24 BUILDING ENERGY RETROFIT TECHNICIAN CPT-89737 Pneumovax 14:01:24 BUILDING ENERGY RETROFIT TECHNICIAN CPT-76738 Venipuncture Draw Fee 10:36:48 CDT CPT-000 Give Appropriate Flu Vaccine 15:20:11 BUILDING ENERGY RETROFIT TECHNICIAN CPT-61932 Administration single or combination vaccine inc oral 15 :50:33 BUILDING ENERGY RETROFIT TECHNICIAN CPT-22990 Influenza High Dose age 65+ 15:50:33 BUILDING ENERGY RETROFIT TECHNICIAN CPT-09109 LS spine AP and Lat 15:30:05 BUILDING ENERGY RETROFIT TECHNICIAN CPT-71281 Hip comp min 2V 15:30:05 BUILDING ENERGY RETROFIT TECHNICIAN CPT-65357 Postop F/U Visit 17:28:18 CDT CPT-OV Office Visit 15:04:38 CDT CPT-35799 Bladder Scan 15:58:26 CDT CPT-42307 Cystoscopy 15:58:26 CDT CPT-OV Office Visit 16:15:09 CDT CPT-000 Give Appropriate Flu Vaccine 16:33:10 BUILDING ENERGY RETROFIT TECHNICIAN CPT-79345 Administration single or combination vaccine inc oral 19 :21:12 BUILDING ENERGY RETROFIT TECHNICIAN CPT-23137 Influenza split virus > age 3 19:21:12 BUILDING ENERGY RETROFIT TECHNICIAN
--- OUTSIDE RECORDS SUMMARY | 2017-07-23 09:24 | XMS REPORT | Clinical Summary ---
Author Author Admin, IMTIAZ Organization [facility] Address Unknown Phone Unavailable Allergies, Adverse [...] MD Routine general medical [facility] at [facility] PERIPHERAL NEUROPATHY 356.9 Active [...] Take 1 po BID SULFAMETHOXAZOLE- TRIMETHOPRIM TABS 10721832244 No Longer Active Pam Gomez LPN Active MACROBID 100 MG CAP 1 cap by mouth twice daily NITROFURANTOIN MONOHYD MACRO 88188803466 No Longer Active Pam Gomez LPN Active DIFLUCAN 150 MG TAB 1 tablet by mouth daily FLUCONAZOLE 66418222491 Active Pam Gomez LPN Active CIPRO 250 MG TAB 1 tablet by mouth twice daily CIPROFLOXACIN HCL 64343504598 No Longer Active Pam Gomez LPN Active JANUVIA 100 MG ORAL TABS 1 daily SITAGLIPTIN PHOSPHATE 65382550753 Active Nadir Hector MD Active GLUCOTROL XL 5 MG [id number] one tablet daily GLIPIZIDE 75446073015 No Longer Active Nadir Hector MD Active BACTRIM DS 800-160 MG TABS 1 po BID x 7 days SULFAMETHOXAZOLE-TRIMETHOPRIM 02649931025 No Longer Active Jamal Burrell MD Active FOSAMAX 70 MG TABS 1 po qweek. Take 30min prior to first food/drink. Avoid lying down x 1 hour. ALENDRONATE SODIUM 10169627121 Active Nadir Hector MD Active AMOXICILLIN 500 MG CAPS 2 po BID x 10 days AMOXICILLIN 91640377141 No Longer Active Nadir Hector MD Active JANUVIA 100 MG TABS 1 tablet by mouth daily SITAGLIPTIN PHOSPHATE 54154113599 No Longer Active Nadir Hector MD Active JANUVIA 100 MG TABS Take 1 tab daily SITAGLIPTIN PHOSPHATE 46951321745 No Longer Active Sharon Nuñez Active MACROBID 100 MG CAP 1 cap by mouth twice daily NITROFURANTOIN MONOHYD MACRO 93622891480 No Longer Active Crystal Fernández APRN Active MACRODANTIN 100 MG CAPS 1 capsule by mouth twice daily for seven days NITROFURANTOIN MACROCRYSTAL 13112756074 No Longer Active Ro Yang RN Active BACTRIM DS 800-160 MG TABS one tablet twice a day for seven days SULFAMETHOXAZOLE-TRIMETHOPRIM 62746311790 No Longer Active HEMANTH Griffin Active BACTRIM DS 800-160 MG TABS TAKE ONE TABLET BY MOUTH TWICE DAILY FOR 7 DAYS SULFAMETHOXAZOLE-TRIMETHOPRIM 71129566483 No Longer Active Viviana Lal RN Active CIPRO 250 MG TABS TAKE ONE TABLET BY MOUTH TWICE DAILY FOR 5 DAYS CIPROFLOXACIN HCL 41103012953 No Longer Active Viviana Lal RN Active FLEXERIL 10 MG TABS 1/2 TO 1 TABLET Q12H NEEDED CYCLOBENZAPRINE HCL 73984457910 No Longer Active Viviana Lal RN Active AMLODIPINE BESYLATE 5 MG TABS 1 1/2 daily AMLODIPINE BESYLATE 68584670217 Active Nadir Hector MD Active ONGLYZA 5 MG TABS 1 QAM SAXAGLIPTIN HCL 50514912808 No Longer Active Nadir Hector MD Active AMLODIPINE BESYLATE 5 MG TABS 1 1/2 TABLET DAILY AMLODIPINE BESYLATE 57151203684 No Longer Active Nadir Hector MD Active LORTAB 5-500 MG TABS 1 BY MOUTH Q6H NEEDED HYDROCODONE- ACETAMINOPHEN 44367226546 No Longer Active Nadir eHctor MD Active ACTOS 45 MG TABS 1 QD PIOGLITAZONE HCL 40751889968 No Longer Active Nadir Hector MD Active BACTRIM DS 800-160 MG TAB 1 tab by mouth twice daily TRIMETHOPRIM-SULFAMETHOXAZOLE 32166961366 No Longer Active Nadir Hector MD Active CALCIUM + D 600-200 MG-UNIT TABS 1 TABLET TWO TIMES A DAY CALCIUM CARBONATE-VITAMIN D 47522403071 Active Ro Yang RN Active METOPROLOL SUCCINATE 25 MG [id number] 1 QAM METOPROLOL SUCCINATE 28997650758 Active Nadir Hector MD Active AMARYL 4 MG TABS 1 QD GLIMEPIRIDE 83227371116 Active Nadir Hector MD Active LOVASTATIN 40 MG TABS 1 QD LOVASTATIN 79888272997 Active Nadir Hector MD Active GLUCOPHAGE 1000 MG TABS 1 TABLET TWO TIMES A DAY METFORMIN HCL 62874510343 Active Nadir Hector MD Active MAXZIDE-25 37.5-25 MG TABS 1 QD TRIAMTERENE-HCTZ 43627546464 Active Nadir Hector MD Active ACCUPRIL 40 MG TABS 1 QD QUINAPRIL HCL 22742627018 Active Nadir Hector MD Active BACTRIM DS 800-160 MG TAB 1 tab by mouth twice daily BACTRIM DS 800-160 MG TAB TRIMETHOPRIM-SULFAMETHOXAZOLE Inactive ACTOS 45 MG TABS 1 QD ACTOS 45 MG TABS 970181 PIOGLITAZONE HCL Inactive LORTAB 5-500 MG TABS 1 BY MOUTH Q6H NEEDED LORTAB 5-500 MG TABS HYDROCODONE-ACETAMINOPHEN Inactive AMLODIPINE BESYLATE 5 MG TABS 1 1/2 TABLET DAILY AMLODIPINE BESYLATE 5 MG TABS 823686 AMLODIPINE BESYLATE Inactive ONGLYZA 5 MG TABS [...] mouth twice daily MACROBID 100 MG CAP 667532 NITROFURANTOIN MONOHYD MACRO Inactive JANUVIA 100 MG TABS Take 1 tab daily JANUVIA 100 MG TABS SITAGLIPTIN PHOSPHATE Inactive GLUCOTROL XL 5 MG [id number] one tablet daily GLUCOTROL XL 5 MG [id number] GLIPIZIDE Inactive MACRODANTIN 100 MG CAPS 1 capsule by mouth twice daily for seven days MACRODANTIN 100 MG CAPS 787722 NITROFURANTOIN MACROCRYSTAL Inactive AMOXICILLIN 500 MG CAPS 2 po BID x 10 days AMOXICILLIN 500 MG CAPS 710232 AMOXICILLIN Inactive BACTRIM DS 800-160 MG TABS 1 po BID x 7 days BACTRIM DS 800-160 MG TABS SULFAMETHOXAZOLE-TRIMETHOPRIM Inactive CIPRO 250 MG TAB 1 tablet by mouth twice daily CIPRO 250 MG TAB 19740413 CIPROFLOXACIN HCL Inactive MACROBID 100 MG CAP 1 cap by mouth twice daily MACROBID 100 MG CAP 783541 NITROFURANTOIN MONOHYD MACRO Inactive BACTRIM DS TABS Take 1 po BID BACTRIM DS TABS SULFAMETHOXAZOLE-TRIMETHOPRIM TABS Inactive Advance Directives Directive Description Start Date PERMISSION TO SHARE Immunizations Vaccine Administration Date Value Standard Description pneumococcal immunization administered Pneumovax 23 [CVX33] pneumococcal polysaccharide vaccine, 23 valent Seasonal influenza vaccine, injectable, containing preservative, for > 3 years old (Afluria, FluLaval, Fluzone, Fluvirin, Fluarix, Agriflu(>=18 yo)) Fluzone (>3 yrs.) [[id number]] Influenza, seasonal, injectable Vital Signs Date Name [...] HGBA1C - Chemistry sodium, serum 140 mmol/L 015-388 6069/07/23 potassium, serum 4.5 mmol/L 3.5-5.2 chloride, serum [...] 5.0-8.5 Encounters Code Encounter Date Provider Facility CPT-82751 Level 3 Est. Patient 16:43:04 PROGRAM DIRECTOR/AIR PERSONALITY Nadir Hector MD [facility] CPT-45600 Level 4 Est. Patient 14:21:01 PROGRAM DIRECTOR/AIR PERSONALITY Nadir Hector MD [facility] CPT-72864 Level 3 Est. Patient 16:41:34 CDT Nadir Hector MD [facility] CPT-25045 Level 4 Est. Patient 13:54:35 PROGRAM DIRECTOR/AIR PERSONALITY Nadir Hector MD [facility] CPT-13816 Level 3 Est. Patient 15:51:21 CDT Nadir Hector MD [facility] CPT-44994 Level 4 New Patient 15:58:26 CDT Catalino Irene MD [facility] CPT-75492 Level 4 Est. Patient 15:42:38 PROGRAM DIRECTOR/AIR PERSONALITY Nadir Hector MD [facility] Procedures Code Procedure Name Date Entry Date Standard Description CPT-32838 Abd single AP View 12:13:13 CDT CPT-000 Give Pneumovax 14:21:01 PROGRAM DIRECTOR/AIR PERSONALITY CPT-000 Give Appropriate Flu Vaccine 14:21:01 PROGRAM DIRECTOR/AIR PERSONALITY CPT-85990 Bone Density 08:41:23 PROGRAM DIRECTOR/AIR PERSONALITY CPT-000 Give Appropriate Flu Vaccine 13:54:35 PROGRAM DIRECTOR/AIR PERSONALITY CPT-000 Give Pneumovax 13:54:35 PROGRAM DIRECTOR/AIR PERSONALITY CPT-93052 Administration 2+ single or combination vaccines inc oral 14:01:24 PROGRAM DIRECTOR/AIR PERSONALITY CPT-83961 Administration single or combination vaccine inc oral 14 :01:24 PROGRAM DIRECTOR/AIR PERSONALITY CPT-04268 Influenza High Dose age 65+ 14:01:24 PROGRAM DIRECTOR/AIR PERSONALITY CPT-44149 Pneumovax 14:01:24 PROGRAM DIRECTOR/AIR PERSONALITY CPT-60178 Venipuncture Draw Fee 10:36:48 CDT CPT-000 Give Appropriate Flu Vaccine 15:20:11 PROGRAM DIRECTOR/AIR PERSONALITY CPT-96999 Administration single or combination vaccine inc oral 15 :50:33 PROGRAM DIRECTOR/AIR PERSONALITY CPT-57972 Influenza High Dose age 65+ 15:50:33 PROGRAM DIRECTOR/AIR PERSONALITY CPT-99423 LS spine AP and Lat 15:30:05 PROGRAM DIRECTOR/AIR PERSONALITY CPT-01111 Hip comp min 2V 15:30:05 PROGRAM DIRECTOR/AIR PERSONALITY CPT-25120 Postop F/U Visit 17:28:18 CDT CPT-OV Office Visit 15:04:38 CDT CPT-27292 Bladder Scan 15:58:26 CDT CPT-65702 Cystoscopy 15:58:26 CDT CPT-OV Office Visit 16:15:09 CDT CPT-000 Give Appropriate Flu Vaccine 16:33:10 PROGRAM DIRECTOR/AIR PERSONALITY CPT-58984 Administration single or combination vaccine inc oral 19 :21:12 PROGRAM DIRECTOR/AIR PERSONALITY CPT-71163 Influenza split virus > age 3 19:21:12 PROGRAM DIRECTOR/AIR PERSONALITY
--- OUTSIDE RECORDS SUMMARY | 2017-07-23 09:25 | XMS REPORT | Clinical Summary ---
Author Author Admin, IMTIAZ Organization [facility] Address Unknown Phone Unavailable Allergies, [...] MD Routine general medical examination at a [facility] care facility PERIPHERAL NEUROPATHY 356.9 Active [...] TAB 1 tablet by mouth daily FLUCONAZOLE 15119824618 Active Pam Gomez LPN Active CIPRO 250 MG TAB 1 tablet by mouth twice daily CIPROFLOXACIN HCL 07931765255 Active Pam Gomez LPN Active JANUVIA 100 MG ORAL TABS 1 daily SITAGLIPTIN PHOSPHATE 96015914494 Active Nadir Hector MD Active GLUCOTROL XL 5 MG [id number] one tablet daily GLIPIZIDE 84478256979 No Longer Active Nadir Hector MD Active BACTRIM DS 800-160 MG TABS 1 po BID x 7 days SULFAMETHOXAZOLE-TRIMETHOPRIM 91435732940 No Longer Active Jamal Burrell MD Active FOSAMAX 70 MG TABS 1 po qweek. Take 30min prior to first food/drink. Avoid lying down x 1 hour. ALENDRONATE SODIUM 48098380766 Active Nadir Hector MD Active AMOXICILLIN 500 MG CAPS 2 po BID x 10 days AMOXICILLIN 27659520186 No Longer Active Nadir Hector MD Active JANUVIA 100 MG TABS 1 tablet by mouth daily SITAGLIPTIN PHOSPHATE 85466492499 No Longer Active Nadir Hector MD Active JANUVIA 100 MG TABS Take 1 tab daily SITAGLIPTIN PHOSPHATE 31700650931 No Longer Active Sharon Nuñez Active MACROBID 100 MG CAP 1 cap by mouth twice daily NITROFURANTOIN MONOHYD MACRO 58443241665 No Longer Active Crystal Fernández APRN Active MACRODANTIN 100 MG CAPS 1 capsule by mouth twice daily for seven days NITROFURANTOIN MACROCRYSTAL 49955517672 No Longer Active Ro Yang RN Active BACTRIM DS 800-160 MG TABS one tablet twice a day for seven days SULFAMETHOXAZOLE-TRIMETHOPRIM 51071391221 No Longer Active HEMANTH Griffin Active BACTRIM DS 800-160 MG TABS TAKE ONE TABLET BY MOUTH TWICE DAILY FOR 7 DAYS SULFAMETHOXAZOLE-TRIMETHOPRIM 81521924294 No Longer Active Viviana Lal RN Active CIPRO 250 MG TABS TAKE ONE TABLET BY MOUTH TWICE DAILY FOR 5 DAYS CIPROFLOXACIN HCL 18026444981 No Longer Active Viviana Lal RN Active FLEXERIL 10 MG TABS 1/2 TO 1 TABLET Q12H NEEDED CYCLOBENZAPRINE HCL 85815965695 No Longer Active Viviana Lal RN Active AMLODIPINE BESYLATE 5 MG TABS 1 1/2 daily AMLODIPINE BESYLATE 96618421753 Active Nadir Hector MD Active ONGLYZA 5 MG TABS 1 QAM SAXAGLIPTIN HCL 26575776624 No Longer Active Nadir Hector MD Active AMLODIPINE BESYLATE 5 MG TABS 1 1/2 TABLET DAILY AMLODIPINE BESYLATE 75231531160 No Longer Active Nadir Hector MD Active LORTAB 5-500 MG TABS 1 BY MOUTH Q6H NEEDED HYDROCODONE- ACETAMINOPHEN 67433142885 No Longer Active Nadir Hector MD Active ACTOS 45 MG TABS 1 QD PIOGLITAZONE HCL 16128949832 No Longer Active Nadir Hector MD Active BACTRIM DS 800-160 MG TAB 1 tab by mouth twice daily TRIMETHOPRIM-SULFAMETHOXAZOLE 43913513602 No Longer Active Nadir Hector MD Active CALCIUM + D 600-200 MG-UNIT TABS 1 TABLET TWO TIMES A DAY CALCIUM CARBONATE-VITAMIN D 60229085898 Active Ro Yang RN Active METOPROLOL SUCCINATE 25 MG [id number] 1 QAM METOPROLOL SUCCINATE 11297444357 Active Nadir Hector MD Active AMARYL 4 MG TABS 1 QD GLIMEPIRIDE 96067907637 Active Nadir Hector MD Active LOVASTATIN 40 MG TABS 1 QD LOVASTATIN 63181135109 Active Nadir Hector MD Active GLUCOPHAGE 1000 MG TABS 1 TABLET TWO TIMES A DAY METFORMIN HCL 30884483943 Active Nadir Hector MD Active MAXZIDE-25 37.5-25 MG TABS 1 QD TRIAMTERENE-HCTZ 63564257081 Active Nadir Hector MD Active ACCUPRIL 40 MG TABS 1 QD QUINAPRIL HCL 44882996665 Active Nadir Hector MD Active BACTRIM DS 800-160 MG TAB 1 tab by mouth twice daily BACTRIM DS 800-160 MG TAB TRIMETHOPRIM-SULFAMETHOXAZOLE Inactive ACTOS 45 MG TABS 1 QD ACTOS 45 MG TABS 369212 PIOGLITAZONE HCL Inactive LORTAB 5-500 MG TABS 1 BY MOUTH Q6H NEEDED LORTAB 5-500 MG TABS HYDROCODONE-ACETAMINOPHEN Inactive AMLODIPINE BESYLATE 5 MG TABS 1 1/2 TABLET DAILY AMLODIPINE BESYLATE 5 MG TABS 966047 AMLODIPINE BESYLATE Inactive ONGLYZA 5 MG TABS [...] mouth twice daily MACROBID 100 MG CAP 432368 NITROFURANTOIN MONOHYD MACRO Inactive JANUVIA 100 MG TABS Take 1 tab daily JANUVIA 100 MG TABS SITAGLIPTIN PHOSPHATE Inactive GLUCOTROL XL 5 MG [id number] one tablet daily GLUCOTROL XL 5 MG [id number] GLIPIZIDE Inactive MACRODANTIN 100 MG CAPS 1 capsule by mouth twice daily for seven days MACRODANTIN 100 MG CAPS 619873 NITROFURANTOIN MACROCRYSTAL Inactive AMOXICILLIN 500 MG CAPS 2 po BID x 10 days AMOXICILLIN 500 MG CAPS 537381 AMOXICILLIN Inactive BACTRIM DS 800-160 MG TABS [...] Fluvirin, Fluarix, Agriflu(>=18 yo)) Fluzone (>3 yrs.) [[id number]] Influenza, seasonal, injectable Vital Signs Date Name [...] HGBA1C - Chemistry sodium, serum 140 mmol/L 570-409 4748/07/23 potassium, serum 4.5 mmol/L 3.5-5.2 chloride, serum [...] Trace mg/dL Negative protein, total urine random 3+ [...] 5.0-8.5 Encounters Code Encounter Date Provider Facility CPT-66858 Level 3 Est. Patient 16:43:04 STAFF EDITOR Nadir Hector MD [facility] CPT-44149 Level 4 Est. Patient 14:21:01 STAFF EDITOR Nadir Hector MD [facility] CPT-04738 Level 3 Est. Patient 16:41:34 CDT Nadir Hector MD [facility] CPT-77684 Level 4 Est. Patient 13:54:35 STAFF EDITOR Nadir Hector MD [facility] CPT-69519 Level 3 Est. Patient 15:51:21 CDT Nadir Hector MD [facility] CPT-63423 Level 4 New Patient 15:58:26 CDT Catalino [facility] MD [facility] CPT-35634 Level 4 Est. Patient 15:42:38 STAFF EDITOR Nadir Hector MD [facility] Procedures Code Procedure Name Date Entry Date Standard Description CPT-000 Give Pneumovax 14:21:01 STAFF EDITOR CPT-000 Give Appropriate Flu Vaccine 14:21:01 STAFF EDITOR CPT-36761 Bone Density 08:41:23 STAFF EDITOR CPT-000 Give Appropriate Flu Vaccine 13:54:35 STAFF EDITOR CPT-000 Give Pneumovax 13:54:35 STAFF EDITOR CPT-78105 Administration 2+ single or combination vaccines inc oral 14:01:24 STAFF EDITOR CPT-90315 Administration single or combination vaccine inc oral 14 :01:24 STAFF EDITOR CPT-45692 Influenza High Dose age 65+ 14:01:24 STAFF EDITOR CPT-20647 Pneumovax 14:01:24 STAFF EDITOR CPT-97409 Venipuncture Draw Fee 10:36:48 CDT CPT-000 Give Appropriate Flu Vaccine 15:20:11 STAFF EDITOR CPT-12743 Administration single or combination vaccine inc oral 15 :50:33 STAFF EDITOR CPT-42305 Influenza High Dose age 65+ 15:50:33 STAFF EDITOR CPT-54014 LS spine AP and Lat 15:30:05 STAFF EDITOR CPT-09095 Hip comp min 2V 15:30:05 STAFF EDITOR CPT-94816 Postop F/U Visit 17:28:18 CDT CPT-OV Office Visit 15:04:38 CDT CPT-24359 Bladder Scan 15:58:26 CDT CPT-86987 Cystoscopy 15:58:26 CDT CPT-OV Office Visit 16:15:09 CDT CPT-000 Give Appropriate Flu Vaccine 16:33:10 STAFF EDITOR CPT-25617 Administration single or combination vaccine inc oral 19 :21:12 STAFF EDITOR CPT-04091 Influenza split virus > age 3 19:21:12 STAFF EDITOR
--- OUTSIDE RECORDS SUMMARY | 2017-07-23 09:25 | XMS REPORT | Clinical Summary ---
Author Author Admin, IMTIAZ Organization [facility] Address Unknown Phone Unavailable Allergies, Adverse Reactions, Alerts Allergy Name Reaction Description Start Date Severity Status Provider No Known Allergies Dayana Andi Conditions or Problems Problem Name Problem Code [...] hyperlipidemia HEALTH MAINTENANCE EXAM V70.0 Active Nadir Hetcor MD Routine general medical examination at a [facility] care facility PERIPHERAL NEUROPATHY 356.9 [...] TABS 1 BID for 5 days SULFAMETHOXAZOLE-TRIMETHOPRIM 33171067629 Active Catalino Irene MD Active AMOXICILLIN 500 MG ORAL CAPS tid AMOXICILLIN 11456361357 No Longer Active Catalino Irene MD Active BACTRIM DS TABS Take 1 po BID SULFAMETHOXAZOLE- TRIMETHOPRIM TABS 53635431985 No Longer Active Pam Gomez LPN Active MACROBID 100 MG CAP 1 cap by mouth twice daily NITROFURANTOIN MONOHYD MACRO 77914167986 No Longer Active Pam Gomez LPN Active DIFLUCAN 150 MG TAB 1 tablet by mouth daily FLUCONAZOLE 05102674418 Active Pam Gomez LPN Active CIPRO 250 MG TAB 1 tablet by mouth twice daily CIPROFLOXACIN HCL 15399983282 No Longer Active Pam Gomez LPN Active JANUVIA 100 MG ORAL TABS 1 daily SITAGLIPTIN PHOSPHATE 60686941468 Active Nadir Hector MD Active GLUCOTROL XL 5 MG [id number] one tablet daily GLIPIZIDE 18279161762 No Longer Active Nadir Hector MD Active BACTRIM DS 800-160 MG TABS 1 po BID x 7 days SULFAMETHOXAZOLE-TRIMETHOPRIM 43163693039 No Longer Active Jamal Burrell MD Active FOSAMAX 70 MG TABS 1 po qweek. Take 30min prior to first food/drink. Avoid lying down x 1 hour. ALENDRONATE SODIUM 10464612299 Active Nadir Hector MD Active AMOXICILLIN 500 MG CAPS 2 po BID x 10 days AMOXICILLIN 83451177157 No Longer Active Nadir Hector MD Active JANUVIA 100 MG TABS 1 tablet by mouth daily SITAGLIPTIN PHOSPHATE 13065783932 No Longer Active Nadir Hector MD Active JANUVIA 100 MG TABS Take 1 tab daily SITAGLIPTIN PHOSPHATE 29044867195 No Longer Active Sharon Nuñez Active MACROBID 100 MG CAP 1 cap by mouth twice daily NITROFURANTOIN MONOHYD MACRO 56160684477 No Longer Active Crystal Fernández APRN Active MACRODANTIN 100 MG CAPS 1 capsule by mouth twice daily for seven days NITROFURANTOIN MACROCRYSTAL 64779440074 No Longer Active Ro Yang RN Active BACTRIM DS 800-160 MG TABS one tablet twice a day for seven days SULFAMETHOXAZOLE-TRIMETHOPRIM 86992162426 No Longer Active HEMANTH Griffin Active BACTRIM DS 800-160 MG TABS TAKE ONE TABLET BY MOUTH TWICE DAILY FOR 7 DAYS SULFAMETHOXAZOLE-TRIMETHOPRIM 74466674852 No Longer Active Viviana Lal RN Active CIPRO 250 MG TABS TAKE ONE TABLET BY MOUTH TWICE DAILY FOR 5 DAYS CIPROFLOXACIN HCL 37175202482 No Longer Active Viviana Lal RN Active FLEXERIL 10 MG TABS 1/2 TO 1 TABLET Q12H NEEDED CYCLOBENZAPRINE HCL 85136813795 No Longer Active Viviana Lal RN Active AMLODIPINE BESYLATE 5 MG TABS 1 1/2 daily AMLODIPINE BESYLATE 21092193682 Active Nadir Hector MD Active ONGLYZA 5 MG TABS 1 QAM SAXAGLIPTIN HCL 70595424134 No Longer Active Nadir Hector MD Active AMLODIPINE BESYLATE 5 MG TABS 1 1/2 TABLET DAILY AMLODIPINE BESYLATE 68314224689 No Longer Active Nadir Hector MD Active LORTAB 5-500 MG TABS 1 BY MOUTH Q6H NEEDED HYDROCODONE- ACETAMINOPHEN 50414132485 No Longer Active Nadir Hector MD Active ACTOS 45 MG TABS 1 QD PIOGLITAZONE HCL 87211486049 No Longer Active Nadir Hector MD Active BACTRIM DS 800-160 MG TAB 1 tab by mouth twice daily TRIMETHOPRIM-SULFAMETHOXAZOLE 85618941921 No Longer Active Nadir Hector MD Active CALCIUM + D 600-200 MG-UNIT TABS 1 TABLET TWO TIMES A DAY CALCIUM CARBONATE-VITAMIN D 44525635574 Active Ro Yang RN Active METOPROLOL SUCCINATE 25 MG [id number] 1 QAM METOPROLOL SUCCINATE 13690350183 Active Nadir Hector MD Active AMARYL 4 MG TABS 1 QD GLIMEPIRIDE 34567048384 Active Nadir Hector MD Active LOVASTATIN 40 MG TABS 1 QD LOVASTATIN 14404319666 Active Nadir Hector MD Active GLUCOPHAGE 1000 MG TABS 1 TABLET TWO TIMES A DAY METFORMIN HCL 04506389554 Active Nadir Hector MD Active MAXZIDE-25 37.5-25 MG TABS 1 QD TRIAMTERENE-HCTZ 93751527900 Active Nadir Hector MD Active ACCUPRIL 40 MG TABS 1 QD QUINAPRIL HCL 87240957680 Active Nadir Hector MD Active BACTRIM DS 800-160 MG TAB 1 tab by mouth twice daily BACTRIM DS 800-160 MG TAB TRIMETHOPRIM-SULFAMETHOXAZOLE Inactive ACTOS 45 MG TABS 1 QD ACTOS 45 MG TABS 192685 PIOGLITAZONE HCL Inactive LORTAB 5-500 MG TABS 1 BY MOUTH Q6H NEEDED LORTAB 5-500 MG TABS HYDROCODONE-ACETAMINOPHEN Inactive AMLODIPINE BESYLATE 5 MG TABS 1 1/2 TABLET DAILY AMLODIPINE BESYLATE 5 MG TABS 559748 AMLODIPINE BESYLATE Inactive ONGLYZA 5 MG TABS 1 QAM ONGLYZA 5 MG TABS SAXAGLIPTIN HCL Inactive FLEXERIL 10 MG TABS 1/2 TO 1 TABLET Q12H NEEDED FLEXERIL 10 MG TABS CYCLOBENZAPRINE HCL Inactive CIPRO 250 MG TABS TAKE ONE TABLET BY MOUTH TWICE DAILY FOR 5 DAYS CIPRO 250 MG TABS 716192 CIPROFLOXACIN HCL Inactive BACTRIM DS 800-160 MG TABS TAKE ONE TABLET BY MOUTH TWICE DAILY FOR 7 DAYS BACTRIM DS 800-160 MG TABS SULFAMETHOXAZOLE-TRIMETHOPRIM Inactive BACTRIM DS 800-160 MG TABS one tablet twice a day for seven days BACTRIM DS 800-160 MG TABS SULFAMETHOXAZOLE-TRIMETHOPRIM Inactive MACROBID 100 MG CAP 1 cap by mouth twice daily MACROBID 100 MG CAP 8830497 NITROFURANTOIN MONOHYD MACRO Inactive JANUVIA 100 MG TABS Take 1 tab daily JANUVIA 100 MG TABS SITAGLIPTIN PHOSPHATE Inactive GLUCOTROL XL 5 MG [id number] one tablet daily GLUCOTROL XL 5 MG [id number] GLIPIZIDE Inactive MACRODANTIN 100 MG CAPS 1 capsule by mouth twice daily for seven days MACRODANTIN 100 MG CAPS 7474806 NITROFURANTOIN MACROCRYSTAL Inactive AMOXICILLIN 500 MG CAPS 2 po BID x 10 days AMOXICILLIN 500 MG CAPS 920021 AMOXICILLIN Inactive BACTRIM DS 800-160 MG TABS 1 po BID x 7 days BACTRIM DS 800-160 MG TABS SULFAMETHOXAZOLE-TRIMETHOPRIM Inactive CIPRO 250 MG TAB 1 tablet by mouth twice daily CIPRO 250 MG TAB 603215 CIPROFLOXACIN HCL Inactive MACROBID 100 MG CAP 1 cap by mouth twice daily MACROBID 100 MG CAP 9907786 NITROFURANTOIN MONOHYD MACRO Inactive BACTRIM DS TABS Take 1 po BID BACTRIM DS TABS SULFAMETHOXAZOLE-TRIMETHOPRIM TABS Inactive AMOXICILLIN 500 MG ORAL CAPS tid AMOXICILLIN 500 MG ORAL CAPS 086332 AMOXICILLIN Inactive Advance Directives Directive Description Start Date PERMISSION TO SHARE Immunizations Vaccine Administration Date Value Standard Description pneumococcal immunization administered Pneumovax 23 [CVX33] pneumococcal polysaccharide vaccine, 23 valent Seasonal influenza vaccine, injectable, containing preservative, for > 3 years old (Afluria, FluLaval, Fluzone, Fluvirin, Fluarix, Agriflu(>=18 yo)) Fluzone (>3 yrs.) [[id number]] Influenza, seasonal, injectable Vital Signs Date Name [...] Panel - Chemistry sodium, serum 138 mmol/L 292-948 1898/07/02 potassium, serum 4.5 mmol/L 3.5-5.2 chloride, serum [...] Lab Report: Lipid Panel, Comp. Metabolic Panel, BA1C - Chemistry cholesterol, serum 147 mg/dL 794-630 9180/08/18 triglyceride, serum, fasting 242 mg/dL 30-200 HDL cholesterol, serum 36 mg/dL 32-96 LDL cholesterol, serum 63 mg/dL 0-130 sodium, serum 137 mmol/L 851-040 0861/08/18 potassium, serum 4.7 mmol/L 3.5-5.2 chloride, serum [...] 6.5 Encounters Code Encounter Date Provider Facility CPT-23875 Level 2 Est. Patient 18:56:33 CDT Catalino Irene MD [facility] CPT-43236 Level 4 New Patient 14:59:23 CDT Catalino Irene MD [facility] CPT-57518 Level 3 Est. Patient 16:43:04 REWRITE EDITOR Nadir Hector MD [facility] CPT-56824 Level 4 Est. Patient 14:21:01 REWRITE EDITOR Nadir Hector MD [facility] CPT-82379 Level 3 Est. Patient 16:41:34 CDT Nadir Hector MD [facility] CPT-59190 Level 4 Est. Patient 13:54:35 REWRITE EDITOR Nadir Hector MD [facility] CPT-63604 Level 3 Est. Patient 15:51:21 CDT Nadir Hector MD [facility] CPT-27803 Level 4 New Patient 15:58:26 CDT Catalino Irene MD [facility] CPT-50656 Level 4 Est. Patient 15:42:38 REWRITE EDITOR Nadir Hector MD [facility] Procedures Code Procedure Name Date Entry Date Standard Description CPT-47735 Urine Dip (Floor Use Only) 18:56:34 CDT CPT-53935 Urine Dip (Floor Use Only) 14:21:22 CDT CPT-J0561 Bicillin LA 1,200,000 u (PCN G Benzathine) 13:16:19 CDT CPT-20851 Abx/Therapy Injection 13:16:19 CDT CPT-40275 Urine Dip (Floor Use Only) 14:59:25 CDT CPT-30707 Bladder Scan 14:59:24 CDT CPT-12691 Cystoscopy 14:59:24 CDT CPT-56937 Abd single AP View 12:13:13 CDT CPT-000 Give Pneumovax 14:21:01 REWRITE EDITOR CPT-000 Give Appropriate Flu Vaccine 14:21:01 REWRITE EDITOR CPT-58604 Bone Density 08:41:23 REWRITE EDITOR CPT-000 Give Appropriate Flu Vaccine 13:54:35 REWRITE EDITOR CPT-000 Give Pneumovax 13:54:35 REWRITE EDITOR CPT-65240 Administration 2+ single or combination vaccines inc oral 14:01:24 REWRITE EDITOR CPT-93520 Administration single or combination vaccine inc oral 14 :01:24 REWRITE EDITOR CPT-51073 Influenza High Dose age 65+ 14:01:24 REWRITE EDITOR CPT-22590 Pneumovax 14:01:24 REWRITE EDITOR CPT-69834 Venipuncture Draw Fee 10:36:48 CDT CPT-000 Give Appropriate Flu Vaccine 15:20:11 REWRITE EDITOR CPT-25697 Administration single or combination vaccine inc oral 15 :50:33 REWRITE EDITOR CPT-53813 Influenza High Dose age 65+ 15:50:33 REWRITE EDITOR CPT-50124 LS spine AP and Lat 15:30:05 REWRITE EDITOR CPT-70168 Hip comp min 2V 15:30:05 REWRITE EDITOR CPT-36031 Postop F/U Visit 17:28:18 CDT CPT-OV Office Visit 15:04:38 CDT CPT-26900 Bladder Scan 15:58:26 CDT CPT-15036 Cystoscopy 15:58:26 CDT CPT-OV Office Visit 16:15:09 CDT CPT-000 Give Appropriate Flu Vaccine 16:33:10 REWRITE EDITOR CPT-24693 Administration single or combination vaccine inc oral 19 :21:12 REWRITE EDITOR CPT-72526 Influenza split virus > age 3 19:21:12 REWRITE EDITOR
--- OUTSIDE RECORDS SUMMARY | 2017-07-23 09:26 | XMS REPORT | Clinical Summary ---
Author Author Admin, IMTIAZ Organization [facility] Address Unknown Phone Unavailable Allergies, Adverse Reactions, [...] MD Routine general medical examination at a [facility] care facility PERIPHERAL NEUROPATHY 356.9 [...] AMOXICILLIN 500 MG ORAL CAPS tid AMOXICILLIN 99148284904 No Longer Active Catalino Irene MD Active BACTRIM DS TABS Take 1 po BID SULFAMETHOXAZOLE- TRIMETHOPRIM TABS 09532403751 No Longer Active Pam Gomez LPN Active MACROBID 100 MG CAP 1 cap by mouth twice daily NITROFURANTOIN MONOHYD MACRO 24751535737 No Longer Active Pam Gomez LPN Active DIFLUCAN 150 MG TAB 1 tablet by mouth daily FLUCONAZOLE 90413553988 Active Pam Gomez LPN Active CIPRO 250 MG TAB 1 tablet by mouth twice daily CIPROFLOXACIN HCL 77694856518 No Longer Active Pam Gomez LPN Active JANUVIA 100 MG ORAL TABS 1 daily SITAGLIPTIN PHOSPHATE 77852388126 Active Nadir Hector MD Active GLUCOTROL XL 5 MG [id number] one tablet daily GLIPIZIDE 07478345069 No Longer Active Nadir Hector MD Active BACTRIM DS 800-160 MG TABS 1 po BID x 7 days SULFAMETHOXAZOLE-TRIMETHOPRIM 69962808998 No Longer Active Jamal Burrell MD Active FOSAMAX 70 MG TABS 1 po qweek. Take 30min prior to first food/drink. Avoid lying down x 1 hour. ALENDRONATE SODIUM 61835402322 Active Nadir Hector MD Active AMOXICILLIN 500 MG CAPS 2 po BID x 10 days AMOXICILLIN 95310980171 No Longer Active Nadir Hector MD Active JANUVIA 100 MG TABS 1 tablet by mouth daily SITAGLIPTIN PHOSPHATE 76094226539 No Longer Active Nadir Hector MD Active JANUVIA 100 MG TABS Take 1 tab daily SITAGLIPTIN PHOSPHATE 94553910364 No Longer Active Sharon Nuñez Active MACROBID 100 MG CAP 1 cap by mouth twice daily NITROFURANTOIN MONOHYD MACRO 53661369478 No Longer Active Crystal Fernández APRN Active MACRODANTIN 100 MG CAPS 1 capsule by mouth twice daily for seven days NITROFURANTOIN MACROCRYSTAL 05846306273 No Longer Active Ro Yang RN Active BACTRIM DS 800-160 MG TABS one tablet twice a day for seven days SULFAMETHOXAZOLE-TRIMETHOPRIM 07728238554 No Longer Active HEMANTH Griffin Active BACTRIM DS 800-160 MG TABS TAKE ONE TABLET BY MOUTH TWICE DAILY FOR 7 DAYS SULFAMETHOXAZOLE-TRIMETHOPRIM 99214803775 No Longer Active Viviana Lal RN Active CIPRO 250 MG TABS TAKE ONE TABLET BY MOUTH TWICE DAILY FOR 5 DAYS CIPROFLOXACIN HCL 74245174009 No Longer Active Viviana Lal RN Active FLEXERIL 10 MG TABS 1/2 TO 1 TABLET Q12H NEEDED CYCLOBENZAPRINE HCL 49955336087 No Longer Active Viviana Lal RN Active AMLODIPINE BESYLATE 5 MG TABS 1 1/2 daily AMLODIPINE BESYLATE 57187334345 Active Nadir Hector MD Active ONGLYZA 5 MG TABS 1 QAM SAXAGLIPTIN HCL 77959066330 No Longer Active Nadir Hector MD Active AMLODIPINE BESYLATE 5 MG TABS 1 1/2 TABLET DAILY AMLODIPINE BESYLATE 78456264124 No Longer Active Nadir Hector MD Active LORTAB 5-500 MG TABS 1 BY MOUTH Q6H NEEDED HYDROCODONE- ACETAMINOPHEN 15412540229 No Longer Active Nadir Hector MD Active ACTOS 45 MG TABS 1 QD PIOGLITAZONE HCL 86204686769 No Longer Active Nadir Hector MD Active BACTRIM DS 800-160 MG TAB 1 tab by mouth twice daily TRIMETHOPRIM-SULFAMETHOXAZOLE 93331448075 No Longer Active Nadir Hector MD Active CALCIUM + D 600-200 MG-UNIT TABS 1 TABLET TWO TIMES A DAY CALCIUM CARBONATE-VITAMIN D 43447861852 Active Ro Yang RN Active METOPROLOL SUCCINATE 25 MG [id number] 1 QAM METOPROLOL SUCCINATE 54266209143 Active Nadir Hector MD Active AMARYL 4 MG TABS 1 QD GLIMEPIRIDE 34958819868 Active Nadir Hector MD Active LOVASTATIN 40 MG TABS 1 QD LOVASTATIN 99791695345 Active Nadir Hector MD Active GLUCOPHAGE 1000 MG TABS 1 TABLET TWO TIMES A DAY METFORMIN HCL 84121021774 Active Nadir Hector MD Active MAXZIDE-25 37.5-25 MG TABS 1 QD TRIAMTERENE-HCTZ 16705050884 Active Nadir Hector MD Active ACCUPRIL 40 MG TABS 1 QD QUINAPRIL HCL 70036633006 Active Nadir Hector MD Active BACTRIM DS 800-160 MG TAB 1 tab by mouth twice daily BACTRIM DS 800-160 MG TAB TRIMETHOPRIM-SULFAMETHOXAZOLE Inactive ACTOS 45 MG TABS 1 QD ACTOS 45 MG TABS 229203 PIOGLITAZONE HCL Inactive LORTAB 5-500 MG TABS 1 BY MOUTH Q6H NEEDED LORTAB 5-500 MG TABS HYDROCODONE-ACETAMINOPHEN Inactive AMLODIPINE BESYLATE 5 MG TABS 1 1/2 TABLET DAILY AMLODIPINE BESYLATE 5 MG TABS 016406 AMLODIPINE BESYLATE Inactive ONGLYZA 5 MG TABS 1 QAM ONGLYZA 5 MG TABS SAXAGLIPTIN HCL Inactive FLEXERIL 10 MG TABS 1/2 TO 1 TABLET Q12H NEEDED FLEXERIL 10 MG TABS CYCLOBENZAPRINE HCL Inactive CIPRO 250 MG TABS TAKE ONE TABLET BY MOUTH TWICE DAILY FOR 5 DAYS CIPRO 250 MG TABS 441220 CIPROFLOXACIN HCL Inactive BACTRIM DS 800-160 MG TABS TAKE ONE TABLET BY MOUTH TWICE DAILY FOR 7 DAYS BACTRIM DS 800-160 MG TABS SULFAMETHOXAZOLE-TRIMETHOPRIM Inactive BACTRIM DS 800-160 MG TABS one tablet twice a day for seven days BACTRIM DS 800-160 MG TABS SULFAMETHOXAZOLE-TRIMETHOPRIM Inactive MACROBID 100 MG CAP 1 cap by mouth twice daily MACROBID 100 MG CAP 153148 NITROFURANTOIN MONOHYD MACRO Inactive JANUVIA 100 MG TABS Take 1 tab daily JANUVIA 100 MG TABS SITAGLIPTIN PHOSPHATE Inactive GLUCOTROL XL 5 MG [id number] one tablet daily GLUCOTROL XL 5 MG [id number] GLIPIZIDE Inactive MACRODANTIN 100 MG CAPS 1 capsule by mouth twice daily for seven days MACRODANTIN 100 MG CAPS 394210 NITROFURANTOIN MACROCRYSTAL Inactive AMOXICILLIN 500 MG CAPS 2 po BID x 10 days AMOXICILLIN 500 MG CAPS 314999 AMOXICILLIN Inactive BACTRIM DS 800-160 MG TABS 1 po BID x 7 days BACTRIM DS 800-160 MG TABS SULFAMETHOXAZOLE-TRIMETHOPRIM Inactive CIPRO 250 MG TAB 1 tablet by mouth twice daily CIPRO 250 MG TAB 667320 CIPROFLOXACIN HCL Inactive MACROBID 100 MG CAP 1 cap by mouth twice daily MACROBID 100 MG CAP 268262 NITROFURANTOIN MONOHYD MACRO Inactive BACTRIM DS TABS Take 1 po BID BACTRIM DS TABS SULFAMETHOXAZOLE-TRIMETHOPRIM TABS Inactive AMOXICILLIN 500 MG ORAL CAPS tid AMOXICILLIN 500 MG ORAL CAPS 107125 AMOXICILLIN Inactive Advance Directives Directive Description Start Date PERMISSION TO SHARE Immunizations Vaccine Administration Date Value Standard Description pneumococcal immunization administered Pneumovax 23 [CVX33] pneumococcal polysaccharide vaccine, 23 valent Seasonal influenza vaccine, injectable, containing preservative, for > 3 years old (Afluria, FluLaval, Fluzone, Fluvirin, Fluarix, Agriflu(>=18 yo)) Fluzone (>3 yrs.) [XPG032] Influenza, seasonal, injectable Vital Signs Date Name [...] HGBA1C - Chemistry sodium, serum 140 mmol/L 414-975 2269/07/23 potassium, serum 4.5 mmol/L 3.5-5.2 chloride, serum [...] 0.2 Encounters Code Encounter Date Provider Facility CPT-64317 Level 4 New Patient 14:59:23 CDT Catalino Irene MD [facility] CPT-48439 Level 3 Est. Patient 16:43:04 SOUND DESIGNER Nadir Hector MD [facility] CPT-22171 Level 4 Est. Patient 14:21:01 SOUND DESIGNER Nadir Hector MD [facility] CPT-65290 Level 3 Est. Patient 16:41:34 CDT Nadir Hector MD [facility] CPT-15583 Level 4 Est. Patient 13:54:35 SOUND DESIGNER Nadir Hector MD [facility] CPT-86771 Level 3 Est. Patient 15:51:21 CDT Nadir Hector MD [facility] CPT-21938 Level 4 New Patient 15:58:26 CDT Catalino Irene MD [facility] CPT-57038 Level 4 Est. Patient 15:42:38 SOUND DESIGNER Nadir Hector MD [facility] Procedures Code Procedure Name Date Entry Date Standard Description CPT-60149 Urine Dip (Floor Use Only) 14:59:25 CDT CPT-50508 Bladder Scan 14:59:24 CDT CPT-55178 Cystoscopy 14:59:24 CDT CPT-28686 Abd single AP View 12:13:13 CDT CPT-000 Give Pneumovax 14:21:01 SOUND DESIGNER CPT-000 Give Appropriate Flu Vaccine 14:21:01 SOUND DESIGNER CPT-01586 Bone Density 08:41:23 SOUND DESIGNER CPT-000 Give Appropriate Flu Vaccine 13:54:35 SOUND DESIGNER CPT-000 Give Pneumovax 13:54:35 SOUND DESIGNER CPT-52548 Administration 2+ single or combination vaccines inc oral 14:01:24 SOUND DESIGNER CPT-63470 Administration single or combination vaccine inc oral 14 :01:24 SOUND DESIGNER CPT-55620 Influenza High Dose age 65+ 14:01:24 SOUND DESIGNER CPT-95950 Pneumovax 14:01:24 SOUND DESIGNER CPT-29668 Venipuncture Draw Fee 10:36:48 CDT CPT-000 Give Appropriate Flu Vaccine 15:20:11 SOUND DESIGNER CPT-10901 Administration single or combination vaccine inc oral 15 :50:33 SOUND DESIGNER CPT-79264 Influenza High Dose age 65+ 15:50:33 SOUND DESIGNER CPT-10291 LS spine AP and Lat 15:30:05 SOUND DESIGNER CPT-02451 Hip comp min 2V 15:30:05 SOUND DESIGNER CPT-45898 Postop F/U Visit 17:28:18 CDT CPT-OV Office Visit 15:04:38 CDT CPT-08798 Bladder Scan 15:58:26 CDT CPT-96931 Cystoscopy 15:58:26 CDT CPT-OV Office Visit 16:15:09 CDT CPT-000 Give Appropriate Flu Vaccine 16:33:10 SOUND DESIGNER CPT-15154 Administration single or combination vaccine inc oral 19 :21:12 SOUND DESIGNER CPT-78482 Influenza split virus > age 3 19:21:12 SOUND DESIGNER
--- OUTSIDE RECORDS SUMMARY | 2017-07-23 09:27 | XMS REPORT | Clinical Summary ---
[...] Acute sinusitis, unspecified Menopause, surgical 627.[address] [facility] Symptomatic states associated with artificial menopause [...] TAB 1 tablet by mouth daily FLUCONAZOLE 96593584515 No Longer Active Nadir Hector MD Active BACTRIM DS 800-160 MG ORAL TABS 1 BID for 5 days SULFAMETHOXAZOLE-TRIMETHOPRIM 08493560715 No Longer Active Nadir Hector MD Active CIPRO 250 MG TAB 1 tablet by mouth twice daily CIPROFLOXACIN HCL 63529147011 Active Ro Meyer Active AMOXICILLIN 500 MG ORAL CAPS tid AMOXICILLIN 14321847055 No Longer Active Catalino Irene MD Active BACTRIM DS TABS Take 1 po BID SULFAMETHOXAZOLE- TRIMETHOPRIM TABS 09354053098 No Longer Active Pam Gomez LPN Active MACROBID 100 MG CAP 1 cap by mouth twice daily NITROFURANTOIN MONOHYD MACRO 41863413876 No Longer Active Pam Gomez LPN Active CIPRO 250 MG TAB 1 tablet by mouth twice daily CIPROFLOXACIN HCL 68607757277 No Longer Active Pam Gomez LPN Active JANUVIA 100 MG ORAL TABS 1 daily SITAGLIPTIN PHOSPHATE 29286257003 Active Nadir Hector MD Active GLUCOTROL XL 5 MG [id number] one tablet daily GLIPIZIDE 68819108975 No Longer Active Nadir Hector MD Active BACTRIM DS 800-160 MG TABS 1 po BID x 7 days SULFAMETHOXAZOLE-TRIMETHOPRIM 35509952751 No Longer Active Jamal Burrell MD Active FOSAMAX 70 MG TABS 1 po qweek. Take 30min prior to first food/drink. Avoid lying down x 1 hour. ALENDRONATE SODIUM 73774276198 Active Nadir Hector MD Active AMOXICILLIN 500 MG CAPS 2 po BID x 10 days AMOXICILLIN 68551490851 No Longer Active Nadir Hector MD Active JANUVIA 100 MG TABS 1 tablet by mouth daily SITAGLIPTIN PHOSPHATE 51033758634 No Longer Active Nadir Hector MD Active JANUVIA 100 MG TABS Take 1 tab daily SITAGLIPTIN PHOSPHATE 88957848693 No Longer Active Sharon Nuñez Active MACROBID 100 MG CAP 1 cap by mouth twice daily NITROFURANTOIN MONOHYD MACRO 61722804920 No Longer Active Crystal Fernández APRN Active MACRODANTIN 100 MG CAPS 1 capsule by mouth twice daily for seven days NITROFURANTOIN MACROCRYSTAL 49081550295 No Longer Active Ro Yang RN Active BACTRIM DS 800-160 MG TABS one tablet twice a day for seven days SULFAMETHOXAZOLE-TRIMETHOPRIM 87654127930 No Longer Active HEMANTH Griffin Active BACTRIM DS 800-160 MG TABS TAKE ONE TABLET BY MOUTH TWICE DAILY FOR 7 DAYS SULFAMETHOXAZOLE-TRIMETHOPRIM 03946316491 No Longer Active Viviana Lal RN Active CIPRO 250 MG TABS TAKE ONE TABLET BY MOUTH TWICE DAILY FOR 5 DAYS CIPROFLOXACIN HCL 02081304224 No Longer Active Viviana Lal RN Active FLEXERIL 10 MG TABS 1/2 TO 1 TABLET Q12H NEEDED CYCLOBENZAPRINE HCL 87509344342 No Longer Active Viviana Lal RN Active AMLODIPINE BESYLATE 5 MG TABS 1 1/2 daily AMLODIPINE BESYLATE 37668473114 Active Nadir Hector MD Active ONGLYZA 5 MG TABS 1 QAM SAXAGLIPTIN HCL 63549623956 No Longer Active Nadir Hector MD Active AMLODIPINE BESYLATE 5 MG TABS 1 1/2 TABLET DAILY AMLODIPINE BESYLATE 27512862898 No Longer Active Nadir Hector MD Active LORTAB 5-500 MG TABS 1 BY MOUTH Q6H NEEDED HYDROCODONE- ACETAMINOPHEN 32834138593 No Longer Active Nadir Hector MD Active ACTOS 45 MG TABS 1 QD PIOGLITAZONE HCL 49094810088 No Longer Active Nadir Hector MD Active BACTRIM DS 800-160 MG TAB 1 tab by mouth twice daily TRIMETHOPRIM-SULFAMETHOXAZOLE 49242198078 No Longer Active Nadir Hector MD Active CALCIUM + D 600-200 MG-UNIT TABS 1 TABLET TWO TIMES A DAY CALCIUM CARBONATE-VITAMIN D 07095598245 Active Ro Yang RN Active METOPROLOL SUCCINATE 25 MG [id number] 1 QAM METOPROLOL SUCCINATE 55798702607 Active Nadir Hector MD Active AMARYL 4 MG TABS 1 QD GLIMEPIRIDE 20555722675 Active Nadir Hector MD Active LOVASTATIN 40 MG TABS 1 QD LOVASTATIN 74241102189 Active Nadir Hector MD Active GLUCOPHAGE 1000 MG TABS 1 TABLET TWO TIMES A DAY METFORMIN HCL 73651149960 Active Nadir Hector MD Active MAXZIDE-25 37.5-25 MG TABS 1 QD TRIAMTERENE-HCTZ 58047764727 Active Nadir Hector MD Active ACCUPRIL 40 MG TABS 1 QD QUINAPRIL HCL 42110663471 Active Nadir Hector MD Active BACTRIM DS 800-160 MG TAB 1 tab by mouth twice daily BACTRIM DS 800-160 MG TAB TRIMETHOPRIM-SULFAMETHOXAZOLE Inactive ACTOS 45 MG TABS 1 QD ACTOS 45 MG TABS 786700 PIOGLITAZONE HCL Inactive LORTAB 5-500 MG TABS 1 BY MOUTH Q6H NEEDED LORTAB 5-500 MG TABS HYDROCODONE-ACETAMINOPHEN Inactive AMLODIPINE BESYLATE 5 MG TABS 1 1/2 TABLET DAILY AMLODIPINE BESYLATE 5 MG TABS 068433 AMLODIPINE BESYLATE Inactive ONGLYZA 5 MG TABS 1 QAM ONGLYZA 5 MG TABS SAXAGLIPTIN HCL Inactive FLEXERIL 10 MG TABS 1/2 TO 1 TABLET Q12H NEEDED FLEXERIL 10 MG TABS CYCLOBENZAPRINE HCL Inactive CIPRO 250 MG TABS TAKE ONE TABLET BY MOUTH TWICE DAILY FOR 5 DAYS CIPRO 250 MG TABS 426876 CIPROFLOXACIN HCL Inactive BACTRIM DS 800-160 MG TABS TAKE ONE TABLET BY MOUTH TWICE DAILY FOR 7 DAYS BACTRIM DS 800-160 MG TABS SULFAMETHOXAZOLE-TRIMETHOPRIM Inactive BACTRIM DS 800-160 MG TABS one tablet twice a day for seven days BACTRIM DS 800-160 MG TABS SULFAMETHOXAZOLE-TRIMETHOPRIM Inactive MACROBID 100 MG CAP 1 cap by mouth twice daily MACROBID 100 MG CAP 2529204 NITROFURANTOIN MONOHYD MACRO Inactive JANUVIA 100 MG TABS Take 1 tab daily JANUVIA 100 MG TABS SITAGLIPTIN PHOSPHATE Inactive GLUCOTROL XL 5 MG [id number] one tablet daily GLUCOTROL XL 5 MG [id number] GLIPIZIDE Inactive BACTRIM DS 800-160 MG ORAL TABS 1 BID for 5 days BACTRIM DS 800-160 MG ORAL TABS SULFAMETHOXAZOLE-TRIMETHOPRIM Inactive DIFLUCAN 150 MG TAB 1 tablet by mouth daily DIFLUCAN 150 MG TAB 404868 FLUCONAZOLE Inactive MACRODANTIN 100 MG CAPS 1 capsule by mouth twice daily for seven days MACRODANTIN 100 MG CAPS 6092132 NITROFURANTOIN MACROCRYSTAL Inactive AMOXICILLIN 500 MG CAPS 2 po BID x 10 days AMOXICILLIN 500 MG CAPS 125687 AMOXICILLIN Inactive BACTRIM DS 800-160 MG TABS 1 po BID x 7 days BACTRIM DS 800-160 MG TABS SULFAMETHOXAZOLE-TRIMETHOPRIM Inactive CIPRO 250 MG TAB 1 tablet by mouth twice daily CIPRO 250 MG TAB 306075 CIPROFLOXACIN HCL Inactive MACROBID 100 MG CAP 1 cap by mouth twice daily MACROBID 100 MG CAP 4629447 NITROFURANTOIN MONOHYD MACRO Inactive BACTRIM DS TABS Take 1 po BID BACTRIM DS TABS SULFAMETHOXAZOLE-TRIMETHOPRIM TABS Inactive AMOXICILLIN 500 MG ORAL CAPS tid AMOXICILLIN 500 MG ORAL CAPS 089804 AMOXICILLIN Inactive Advance Directives Directive Description Start Date PERMISSION TO SHARE Immunizations Vaccine Administration Date Value Standard Description pneumococcal immunization administered Pneumovax 23 [CVX33] pneumococcal polysaccharide vaccine, 23 valent Seasonal influenza vaccine, injectable, containing preservative, for > 3 years old (Afluria, FluLaval, Fluzone, Fluvirin, Fluarix, Agriflu(>=18 yo)) Fluzone (>3 yrs.) [[id number]] Influenza, seasonal, injectable Vital Signs Date Name [...] Panel - Chemistry sodium, serum 138 mmol/L 567-225 3158/07/02 potassium, serum 4.5 mmol/L 3.5-5.2 chloride, serum [...] HGBA1C - Chemistry cholesterol, serum 147 mg/dL 383-616 0209/08/18 triglyceride, serum, fasting 242 mg/dL 30-200 HDL cholesterol, serum 36 mg/dL 32-96 LDL cholesterol, serum 63 mg/dL 0-130 sodium, serum 137 mmol/L 077-389 2727/08/18 potassium, serum 4.7 mmol/L 3.5-5.2 chloride, serum [...] 6.5 Encounters Code Encounter Date Provider Facility CPT-53179 Level 4 Est. Patient 09:54:20 CDT Nadir Hector MD [facility] CPT-89115 Level 2 Est. Patient 18:56:33 CDT Catalino Irene MD [facility] CPT-65258 Level 4 New Patient 14:59:23 CDT Catalino Irene MD [facility] CPT-80620 Level 3 Est. Patient 16:43:04 CARE DIRECTOR RN Nadir Hector MD [facility] CPT-46934 Level 4 Est. Patient 14:21:01 CARE DIRECTOR RN Nadir Hector MD [facility] CPT-66521 Level 3 Est. Patient 16:41:34 CDT Nadir Hector MD [facility] CPT-85993 Level 4 Est. Patient 13:54:35 CARE DIRECTOR RN Nadir Hector MD [facility] CPT-03778 Level 3 Est. Patient 15:51:21 CDT Nadir Hector MD [facility] CPT-78063 Level 4 New Patient 15:58:26 CDT Catalino Irene MD [facility] CPT-00670 Level 4 Est. Patient 15:42:38 CARE DIRECTOR RN Nadir Hector MD [facility] Procedures Code Procedure Name Date Entry Date Standard Description CPT-11226 Urine Dip (Floor Use Only) 18:56:34 CDT CPT-01394 Urine Dip (Floor Use Only) 14:21:22 CDT CPT-J0561 Bicillin LA 1,200,000 u (PCN G Benzathine) 13:16:19 CDT CPT-01757 Abx/Therapy Injection 13:16:19 CDT CPT-44638 Urine Dip (Floor Use Only) 14:59:25 CDT CPT-82147 Bladder Scan 14:59:24 CDT CPT-88205 Cystoscopy 14:59:24 CDT CPT-50340 Abd single AP View 12:13:13 CDT CPT-000 Give Pneumovax 14:21:01 CARE DIRECTOR RN CPT-000 Give Appropriate Flu Vaccine 14:21:01 CARE DIRECTOR RN CPT-63891 Bone Density 08:41:23 CARE DIRECTOR RN CPT-000 Give Appropriate Flu Vaccine 13:54:35 CARE DIRECTOR RN CPT-000 Give Pneumovax 13:54:35 CARE DIRECTOR RN CPT-66620 Administration 2+ single or combination vaccines inc oral 14:01:24 CARE DIRECTOR RN CPT-50606 Administration single or combination vaccine inc oral 14 :01:24 CARE DIRECTOR RN CPT-29611 Influenza High Dose age 65+ 14:01:24 CARE DIRECTOR RN CPT-10400 Pneumovax 14:01:24 CARE DIRECTOR RN CPT-47610 Venipuncture Draw Fee 10:36:48 CDT CPT-000 Give Appropriate Flu Vaccine 15:20:11 CARE DIRECTOR RN CPT-47985 Administration single or combination vaccine inc oral 15 :50:33 CARE DIRECTOR RN CPT-53270 Influenza High Dose age 65+ 15:50:33 CARE DIRECTOR RN CPT-24872 LS spine AP and Lat 15:30:05 CARE DIRECTOR RN CPT-82567 Hip comp min 2V 15:30:05 CARE DIRECTOR RN CPT-75040 Postop F/U Visit 17:28:18 CDT CPT-OV Office Visit 15:04:38 CDT CPT-71096 Bladder Scan 15:58:26 CDT CPT-91259 Cystoscopy 15:58:26 CDT CPT-OV Office Visit 16:15:09 CDT CPT-000 Give Appropriate Flu Vaccine 16:33:10 CARE DIRECTOR RN CPT-74688 Administration single or combination vaccine inc oral 19 :21:12 CARE DIRECTOR RN CPT-61721 Influenza split virus > age 3 19:21:12 CARE DIRECTOR RN
--- OUTSIDE RECORDS SUMMARY | 2017-07-23 09:27 | XMS REPORT | Clinical Summary ---
Author Author Admin, IMTIAZ Organization [facility] Address Unknown Phone Unavailable Allergies, Adverse [...] MD Routine general medical examination at a [facility] care facility PERIPHERAL NEUROPATHY 356.9 Active [...] AMOXICILLIN 500 MG ORAL CAPS tid AMOXICILLIN 21564348659 Active Catalino Irene MD Active BACTRIM DS TABS Take 1 po BID SULFAMETHOXAZOLE- TRIMETHOPRIM TABS 56016767722 No Longer Active Pam Gomez VOICER Active MACROBID 100 MG CAP 1 cap by mouth twice daily NITROFURANTOIN MONOHYD MACRO 57411995009 No Longer Active Pam Gomez VOICER Active DIFLUCAN 150 MG TAB 1 tablet by mouth daily FLUCONAZOLE 97953619992 Active Pam Gomez VOICER Active CIPRO 250 MG TAB 1 tablet by mouth twice daily CIPROFLOXACIN HCL 80647530660 No Longer Active Pam Gomez LPN Active JANUVIA 100 MG ORAL TABS 1 daily SITAGLIPTIN PHOSPHATE 79273038151 Active Nadir Hector MD Active GLUCOTROL XL 5 MG [id number] one tablet daily GLIPIZIDE 25745403222 No Longer Active Nadir Hector MD Active BACTRIM DS 800-160 MG TABS 1 po BID x 7 days SULFAMETHOXAZOLE-TRIMETHOPRIM 40808226675 No Longer Active Jamal Burrell MD Active FOSAMAX 70 MG TABS 1 po qweek. Take 30min prior to first food/drink. Avoid lying down x 1 hour. ALENDRONATE SODIUM 78451112780 Active Nadir Hector MD Active AMOXICILLIN 500 MG CAPS 2 po BID x 10 days AMOXICILLIN 77948492781 No Longer Active Nadir Hector MD Active JANUVIA 100 MG TABS 1 tablet by mouth daily SITAGLIPTIN PHOSPHATE 53296067676 No Longer Active Nadir Hector MD Active JANUVIA 100 MG TABS Take 1 tab daily SITAGLIPTIN PHOSPHATE 08968241299 No Longer Active Sharon Nuñez Active MACROBID 100 MG CAP 1 cap by mouth twice daily NITROFURANTOIN MONOHYD MACRO 00404561343 No Longer Active Crystal Fernández APRN Active MACRODANTIN 100 MG CAPS 1 capsule by mouth twice daily for seven days NITROFURANTOIN MACROCRYSTAL 23923105066 No Longer Active Ro Yang RN Active BACTRIM DS 800-160 MG TABS one tablet twice a day for seven days SULFAMETHOXAZOLE-TRIMETHOPRIM 13277557122 No Longer Active HEMANTH Griffin Active BACTRIM DS 800-160 MG TABS TAKE ONE TABLET BY MOUTH TWICE DAILY FOR 7 DAYS SULFAMETHOXAZOLE-TRIMETHOPRIM 44799013281 No Longer Active Viviana Lal RN Active CIPRO 250 MG TABS TAKE ONE TABLET BY MOUTH TWICE DAILY FOR 5 DAYS CIPROFLOXACIN HCL 37529376866 No Longer Active Viviana Lal RN Active FLEXERIL 10 MG TABS 1/2 TO 1 TABLET Q12H NEEDED CYCLOBENZAPRINE HCL 74947376938 No Longer Active [place] Lukasz RN Active AMLODIPINE BESYLATE 5 MG TABS 1 1/2 daily AMLODIPINE BESYLATE 10773375808 Active Nadir Hector MD Active ONGLYZA 5 MG TABS 1 QAM SAXAGLIPTIN HCL 15359347682 No Longer Active Nadir Hector MD Active AMLODIPINE BESYLATE 5 MG TABS 1 1/2 TABLET DAILY AMLODIPINE BESYLATE 71580665836 No Longer Active Nadir Hector MD Active LORTAB 5-500 MG TABS 1 BY MOUTH Q6H NEEDED HYDROCODONE- ACETAMINOPHEN 57221344380 No Longer Active Nadir Hector MD Active ACTOS 45 MG TABS 1 QD PIOGLITAZONE HCL 85511530165 No Longer Active Nadir Hector MD Active BACTRIM DS 800-160 MG TAB 1 tab by mouth twice daily TRIMETHOPRIM-SULFAMETHOXAZOLE 61175690820 No Longer Active Nadir Hector MD Active CALCIUM + D 600-200 MG-UNIT TABS 1 TABLET TWO TIMES A DAY CALCIUM CARBONATE-VITAMIN D 74462744820 Active Ro Trey RN Active METOPROLOL SUCCINATE 25 MG [id number] 1 QAM METOPROLOL SUCCINATE 74639772901 Active Nadir Hector MD Active AMARYL 4 MG TABS 1 QD GLIMEPIRIDE 41495821056 Active Nadir Hector MD Active LOVASTATIN 40 MG TABS 1 QD LOVASTATIN 37412057249 Active Nadir Hector MD Active GLUCOPHAGE 1000 MG TABS 1 TABLET TWO TIMES A DAY METFORMIN HCL 62853095335 Active Nadir Hector MD Active MAXZIDE-25 37.5-25 MG TABS 1 QD TRIAMTERENE-HCTZ 84350808446 Active Nadir Hector MD Active ACCUPRIL 40 MG TABS 1 QD QUINAPRIL HCL 07691776480 Active Nadir Hector MD Active BACTRIM DS 800-160 MG TAB 1 tab by mouth twice daily BACTRIM DS 800-160 MG TAB TRIMETHOPRIM-SULFAMETHOXAZOLE Inactive ACTOS 45 MG TABS 1 QD ACTOS 45 MG TABS 584711 PIOGLITAZONE HCL Inactive LORTAB 5-500 MG TABS 1 BY MOUTH Q6H NEEDED LORTAB 5-500 MG TABS HYDROCODONE-ACETAMINOPHEN Inactive AMLODIPINE BESYLATE 5 MG TABS 1 1/2 TABLET DAILY AMLODIPINE BESYLATE 5 MG TABS 363657 AMLODIPINE BESYLATE Inactive ONGLYZA 5 MG TABS 1 QAM ONGLYZA 5 MG TABS SAXAGLIPTIN HCL Inactive FLEXERIL 10 MG TABS 1/2 TO 1 TABLET Q12H NEEDED FLEXERIL 10 MG TABS CYCLOBENZAPRINE HCL Inactive CIPRO 250 MG TABS TAKE ONE TABLET BY MOUTH TWICE DAILY FOR 5 DAYS CIPRO 250 MG TABS 295256 CIPROFLOXACIN HCL Inactive BACTRIM DS 800-160 MG TABS TAKE ONE TABLET BY MOUTH TWICE DAILY FOR 7 DAYS BACTRIM DS 800-160 MG TABS SULFAMETHOXAZOLE-TRIMETHOPRIM Inactive BACTRIM DS 800-160 MG TABS one tablet twice a day for seven days BACTRIM DS 800-160 MG TABS SULFAMETHOXAZOLE-TRIMETHOPRIM Inactive MACROBID 100 MG CAP 1 cap by mouth twice daily MACROBID 100 MG CAP 703864 NITROFURANTOIN MONOHYD MACRO Inactive JANUVIA 100 MG TABS Take 1 tab daily JANUVIA 100 MG TABS SITAGLIPTIN PHOSPHATE Inactive GLUCOTROL XL 5 MG [id number] one tablet daily GLUCOTROL XL 5 MG [id number] GLIPIZIDE Inactive MACRODANTIN 100 MG CAPS 1 capsule by mouth twice daily for seven days MACRODANTIN 100 MG CAPS 086640 NITROFURANTOIN MACROCRYSTAL Inactive AMOXICILLIN 500 MG CAPS 2 po BID x 10 days AMOXICILLIN 500 MG CAPS 625367 AMOXICILLIN Inactive BACTRIM DS 800-160 MG TABS 1 po BID x 7 days BACTRIM DS 800-160 MG TABS SULFAMETHOXAZOLE-TRIMETHOPRIM Inactive CIPRO 250 MG TAB 1 tablet by mouth twice daily CIPRO 250 MG TAB 117944 CIPROFLOXACIN HCL Inactive MACROBID 100 MG CAP 1 cap by mouth twice daily MACROBID 100 MG CAP 036845 NITROFURANTOIN MONOHYD MACRO Inactive BACTRIM DS TABS [...] Fluvirin, Fluarix, Agriflu(>=18 yo)) Fluzone (>3 yrs.) [[id number]] Influenza, seasonal, injectable Vital Signs Date Name [...] HGBA1C - Chemistry sodium, serum 140 mmol/L 455-047 2059/07/23 potassium, serum 4.5 mmol/L 3.5-5.2 chloride, serum [...] 0.2 Encounters Code Encounter Date Provider Facility CPT-58892 Level 4 New Patient 14:59:23 CDT Catalino Irene MD [facility] CPT-70968 Level 3 Est. Patient 16:43:04 INDUSTRIAL EDITOR Nadir Hector MD [facility] CPT-34786 Level 4 Est. Patient 14:21:01 INDUSTRIAL EDITOR Nadir Hector MD [facility] CPT-74396 Level 3 Est. Patient 16:41:34 CDT Nadir Hector MD [facility] CPT-97361 Level 4 Est. Patient 13:54:35 INDUSTRIAL EDITOR Nadir Hector MD [facility] CPT-26532 Level 3 Est. Patient 15:51:21 CDT Nadir Hector MD [facility] CPT-12791 Level 4 New Patient 15:58:26 CDT Catalino Irene MD [facility] CPT-36963 Level 4 Est. Patient 15:42:38 INDUSTRIAL EDITOR Nadir Hector MD [facility] Procedures Code Procedure Name Date Entry Date Standard Description CPT-72453 Urine Dip (Floor Use Only) 14:59:25 CDT CPT-51481 Bladder Scan 14:59:24 CDT CPT-60703 Cystoscopy 14:59:24 CDT CPT-11293 Abd single AP View 12:13:13 CDT CPT-000 Give Pneumovax 14:21:01 INDUSTRIAL EDITOR CPT-000 Give Appropriate Flu Vaccine 14:21:01 INDUSTRIAL EDITOR CPT-58336 Bone Density 08:41:23 INDUSTRIAL EDITOR CPT-000 Give Appropriate Flu Vaccine 13:54:35 INDUSTRIAL EDITOR CPT-000 Give Pneumovax 13:54:35 INDUSTRIAL EDITOR CPT-73517 Administration 2+ single or combination vaccines inc oral 14:01:24 INDUSTRIAL EDITOR CPT-87341 Administration single or combination vaccine inc oral 14 :01:24 INDUSTRIAL EDITOR CPT-18864 Influenza High Dose age 65+ 14:01:24 INDUSTRIAL EDITOR CPT-94122 Pneumovax 14:01:24 INDUSTRIAL EDITOR CPT-68998 Venipuncture Draw Fee 10:36:48 CDT CPT-000 Give Appropriate Flu Vaccine 15:20:11 INDUSTRIAL EDITOR CPT-21576 Administration single or combination vaccine inc oral 15 :50:33 INDUSTRIAL EDITOR CPT-34819 Influenza High Dose age 65+ 15:50:33 INDUSTRIAL EDITOR CPT-55846 LS spine AP and Lat 15:30:05 INDUSTRIAL EDITOR CPT-23433 Hip comp min 2V 15:30:05 INDUSTRIAL EDITOR CPT-66206 Postop F/U Visit 17:28:18 CDT CPT-OV Office Visit 15:04:38 CDT CPT-40988 Bladder Scan 15:58:26 CDT CPT-87839 Cystoscopy 15:58:26 CDT CPT-OV Office Visit 16:15:09 CDT CPT-000 Give Appropriate Flu Vaccine 16:33:10 INDUSTRIAL EDITOR CPT-84269 Administration single or combination vaccine inc oral 19 :21:12 INDUSTRIAL EDITOR CPT-38691 Influenza split virus > age 3 19:21:12 INDUSTRIAL EDITOR
--- OUTSIDE RECORDS SUMMARY | 2017-07-23 09:28 | XMS REPORT | Clinical Summary ---
Author Author Admin, IMTIAZ Organization [facility] Address Unknown Phone Unavailable Allergies, Adverse Reactions, Alerts Allergy Name Reaction Description Start Date Severity Status Provider No Known Allergies Dayanajayant Sánchezley Conditions or Problems Problem Name Problem Code Onset Date Status Entry Date Provider Comment Standard Description Annotate HYPERTENSION 401.9 Active aNdir Hector MD Unspecified essential hypertension DIABETES MELLITUS 250.00 Active Nadir Hector MD Diabetes mellitus without mention of complication, type II or unspecified type, not stated as uncontrolled HYPERLIPIDEMIA 272.4 Active Nadir Hector MD Other and unspecified hyperlipidemia HEALTH MAINTENANCE EXAM V70.0 Active Nadir Hector MD Routine general medical examination at a [facility] PERIPHERAL NEUROPATHY 356.9 Active [...] AMOXICILLIN 500 MG ORAL CAPS tid AMOXICILLIN 92439688223 No Longer Active Catalino Irene MD Active BACTRIM DS TABS Take 1 po BID SULFAMETHOXAZOLE- TRIMETHOPRIM TABS 81296112674 No Longer Active Pam Gomez LPN Active MACROBID 100 MG CAP 1 cap by mouth twice daily NITROFURANTOIN MONOHYD MACRO 05715154355 No Longer Active Pam Gomez LPN Active DIFLUCAN 150 MG TAB 1 tablet by mouth daily FLUCONAZOLE 50031735753 Active Pam Gomez LPN Active CIPRO 250 MG TAB 1 tablet by mouth twice daily CIPROFLOXACIN HCL 22775644470 No Longer Active Pam Gomez LPN Active JANUVIA 100 MG ORAL TABS 1 daily SITAGLIPTIN PHOSPHATE 45213315973 Active Nadir Hector MD Active GLUCOTROL XL 5 MG [id number] one tablet daily GLIPIZIDE 47594401279 No Longer Active Nadir Hector MD Active BACTRIM DS 800-160 MG TABS 1 po BID x 7 days SULFAMETHOXAZOLE-TRIMETHOPRIM 30856581838 No Longer Active Jamal Burrell MD Active FOSAMAX 70 MG TABS 1 po qweek. Take 30min prior to first food/drink. Avoid lying down x 1 hour. ALENDRONATE SODIUM 63324451200 Active Nadir Hector MD Active AMOXICILLIN 500 MG CAPS 2 po BID x 10 days AMOXICILLIN 15149384885 No Longer Active Nadir Hector MD Active JANUVIA 100 MG TABS 1 tablet by mouth daily SITAGLIPTIN PHOSPHATE 24905008160 No Longer Active Nadir Hector MD Active JANUVIA 100 MG TABS Take 1 tab daily SITAGLIPTIN PHOSPHATE 37550984614 No Longer Active Sharon Nuñez Active MACROBID 100 MG CAP 1 cap by mouth twice daily NITROFURANTOIN MONOHYD MACRO 20285751808 No Longer Active Crystal Fernández APRN Active MACRODANTIN 100 MG CAPS 1 capsule by mouth twice daily for seven days NITROFURANTOIN MACROCRYSTAL 99753116316 No Longer Active Ro Yang RN Active BACTRIM DS 800-160 MG TABS one tablet twice a day for seven days SULFAMETHOXAZOLE-TRIMETHOPRIM 59626542658 No Longer Active HEMANTH Griffin Active BACTRIM DS 800-160 MG TABS TAKE ONE TABLET BY MOUTH TWICE DAILY FOR 7 DAYS SULFAMETHOXAZOLE-TRIMETHOPRIM 30656947406 No Longer Active Viviana Lal RN Active CIPRO 250 MG TABS TAKE ONE TABLET BY MOUTH TWICE DAILY FOR 5 DAYS CIPROFLOXACIN HCL 40656145571 No Longer Active Viviana Lal RN Active FLEXERIL 10 MG TABS 1/2 TO 1 TABLET Q12H NEEDED CYCLOBENZAPRINE HCL 01063699051 No Longer Active Viviana Lal RN Active AMLODIPINE BESYLATE 5 MG TABS 1 1/2 daily AMLODIPINE BESYLATE 59702631307 Active Nadir Hector MD Active ONGLYZA 5 MG TABS 1 QAM SAXAGLIPTIN HCL 15082798219 No Longer Active Nadir Hector MD Active AMLODIPINE BESYLATE 5 MG TABS 1 1/2 TABLET DAILY AMLODIPINE BESYLATE 54168611997 No Longer Active Nadir Hector MD Active LORTAB 5-500 MG TABS 1 BY MOUTH Q6H NEEDED HYDROCODONE- ACETAMINOPHEN 31961511429 No Longer Active Nadir Hector MD Active ACTOS 45 MG TABS 1 QD PIOGLITAZONE HCL 76199631538 No Longer Active Nadir Hector MD Active BACTRIM DS 800-160 MG TAB 1 tab by mouth twice daily TRIMETHOPRIM-SULFAMETHOXAZOLE 25298639887 No Longer Active Nadir Hector MD Active CALCIUM + D 600-200 MG-UNIT TABS 1 TABLET TWO TIMES A DAY CALCIUM CARBONATE-VITAMIN D 92875482036 Active Ro Yang RN Active METOPROLOL SUCCINATE 25 MG [id number] 1 QAM METOPROLOL SUCCINATE 96125166231 Active Nadir Hector MD Active AMARYL 4 MG TABS 1 QD GLIMEPIRIDE 12396104939 Active Nadir Hector MD Active LOVASTATIN 40 MG TABS 1 QD LOVASTATIN 89787041523 Active Nadir Hector MD Active GLUCOPHAGE 1000 MG TABS 1 TABLET TWO TIMES A DAY METFORMIN HCL 53448675413 Active Nadir Hector MD Active MAXZIDE-25 37.5-25 MG TABS 1 QD TRIAMTERENE-HCTZ 82076269285 Active Nadir Hector MD Active ACCUPRIL 40 MG TABS 1 QD QUINAPRIL HCL 59335393374 Active Nadir Hector MD Active BACTRIM DS 800-160 MG TAB 1 tab by mouth twice daily BACTRIM DS 800-160 MG TAB TRIMETHOPRIM-SULFAMETHOXAZOLE Inactive ACTOS 45 MG TABS 1 QD ACTOS 45 MG TABS 653643 PIOGLITAZONE HCL Inactive LORTAB 5-500 MG TABS 1 BY MOUTH Q6H NEEDED LORTAB 5-500 MG TABS HYDROCODONE-ACETAMINOPHEN Inactive AMLODIPINE BESYLATE 5 MG TABS 1 1/2 TABLET DAILY AMLODIPINE BESYLATE 5 MG TABS 438905 AMLODIPINE BESYLATE Inactive ONGLYZA 5 MG TABS 1 QAM ONGLYZA 5 MG TABS SAXAGLIPTIN HCL Inactive FLEXERIL 10 MG TABS 1/2 TO 1 TABLET Q12H NEEDED FLEXERIL 10 MG TABS CYCLOBENZAPRINE HCL Inactive CIPRO 250 MG TABS TAKE ONE TABLET BY MOUTH TWICE DAILY FOR 5 DAYS CIPRO 250 MG TABS 494687 CIPROFLOXACIN HCL Inactive BACTRIM DS 800-160 MG TABS TAKE ONE TABLET BY MOUTH TWICE DAILY FOR 7 DAYS BACTRIM DS 800-160 MG TABS SULFAMETHOXAZOLE-TRIMETHOPRIM Inactive BACTRIM DS 800-160 MG TABS one tablet twice a day for seven days BACTRIM DS 800-160 MG TABS SULFAMETHOXAZOLE-TRIMETHOPRIM Inactive MACROBID 100 MG CAP 1 cap by mouth twice daily MACROBID 100 MG CAP 137478 NITROFURANTOIN MONOHYD MACRO Inactive JANUVIA 100 MG TABS Take 1 tab daily JANUVIA 100 MG TABS SITAGLIPTIN PHOSPHATE Inactive GLUCOTROL XL 5 MG [id number] one tablet daily GLUCOTROL XL 5 MG [id number] GLIPIZIDE Inactive MACRODANTIN 100 MG CAPS 1 capsule by mouth twice daily for seven days MACRODANTIN 100 MG CAPS 577776 NITROFURANTOIN MACROCRYSTAL Inactive AMOXICILLIN 500 MG CAPS 2 po BID x 10 days AMOXICILLIN 500 MG CAPS 564719 AMOXICILLIN Inactive BACTRIM DS 800-160 MG TABS 1 po BID x 7 days BACTRIM DS 800-160 MG TABS SULFAMETHOXAZOLE-TRIMETHOPRIM Inactive CIPRO 250 MG TAB 1 tablet by mouth twice daily CIPRO 250 MG TAB 703345 CIPROFLOXACIN HCL Inactive MACROBID 100 MG CAP 1 cap by mouth twice daily MACROBID 100 MG CAP 702479 NITROFURANTOIN MONOHYD MACRO Inactive BACTRIM DS TABS Take 1 po BID BACTRIM DS TABS SULFAMETHOXAZOLE-TRIMETHOPRIM TABS Inactive AMOXICILLIN 500 MG ORAL CAPS tid AMOXICILLIN 500 MG ORAL CAPS 912385 AMOXICILLIN Inactive Advance Directives Directive Description Start Date PERMISSION TO SHARE Immunizations Vaccine Administration Date Value Standard Description pneumococcal immunization administered Pneumovax 23 [CVX33] pneumococcal polysaccharide vaccine, 23 valent Seasonal influenza vaccine, injectable, containing preservative, for > 3 years old (Afluria, FluLaval, Fluzone, Fluvirin, Fluarix, Agriflu(>=18 yo)) Fluzone (>3 yrs.) [[id number]] Influenza, seasonal, injectable Vital Signs Date Name [...] HGBA1C - Chemistry sodium, serum 140 mmol/L 197-153 6759/07/23 potassium, serum 4.5 mmol/L 3.5-5.2 chloride, serum [...] 0.2 Encounters Code Encounter Date Provider Facility CPT-88507 Level 4 New Patient 14:59:23 CDT Catalino Irene MD [facility] CPT-60647 Level 3 Est. Patient 16:43:04 ALUMINIZER Nadir Hector MD [facility] CPT-25830 Level 4 Est. Patient 14:21:01 ALUMINIZER Nadir Hector MD [facility] CPT-08262 Level 3 Est. Patient 16:41:34 CDT Nadir Hector MD [facility] CPT-14417 Level 4 Est. Patient 13:54:35 ALUMINIZER Nadir Hector MD [facility] CPT-19264 Level 3 Est. Patient 15:51:21 CDT Nadir Hector MD [facility] CPT-32678 Level 4 New Patient 15:58:26 CDT [facility] CPT-33010 Level 4 Est. Patient 15:42:38 ALUMINIZER Nadir Hector MD [facility] Procedures Code Procedure Name Date Entry Date Standard Description CPT-42778 Urine Dip (Floor Use Only) 14:59:25 CDT CPT-39264 Bladder Scan 14:59:24 CDT CPT-74010 Cystoscopy 14:59:24 CDT CPT-58173 Abd single AP View 12:13:13 CDT CPT-000 Give Pneumovax 14:21:01 ALUMINIZER CPT-000 Give Appropriate Flu Vaccine 14:21:01 ALUMINIZER CPT-21666 Bone Density 08:41:23 ALUMINIZER CPT-000 Give Appropriate Flu Vaccine 13:54:35 ALUMINIZER CPT-000 Give Pneumovax 13:54:35 ALUMINIZER CPT-21463 Administration 2+ single or combination vaccines inc oral 14:01:24 ALUMINIZER CPT-37722 Administration single or combination vaccine inc oral 14 :01:24 ALUMINIZER CPT-54505 Influenza High Dose age 65+ 14:01:24 ALUMINIZER CPT-00565 Pneumovax 14:01:24 ALUMINIZER CPT-71871 Venipuncture Draw Fee 10:36:48 CDT CPT-000 Give Appropriate Flu Vaccine 15:20:11 ALUMINIZER CPT-71616 Administration single or combination vaccine inc oral 15 :50:33 ALUMINIZER CPT-67500 Influenza High Dose age 65+ 15:50:33 ALUMINIZER CPT-90296 LS spine AP and Lat 15:30:05 ALUMINIZER CPT-39570 Hip comp min 2V 15:30:05 ALUMINIZER CPT-09279 Postop F/U Visit 17:28:18 CDT CPT-OV Office Visit 15:04:38 CDT CPT-59435 Bladder Scan 15:58:26 CDT CPT-89881 Cystoscopy 15:58:26 CDT CPT-OV Office Visit 16:15:09 CDT CPT-000 Give Appropriate Flu Vaccine 16:33:10 ALUMINIZER CPT-89348 Administration single or combination vaccine inc oral 19 :21:12 ALUMINIZER CPT-52405 Influenza split virus > age 3 19:21:12 ALUMINIZER
--- OUTSIDE RECORDS SUMMARY | 2017-07-23 09:29 | XMS REPORT | Clinical Summary ---
Author Author Admin, IMTIAZ Organization [facility] Address Unknown Phone Unavailable Allergies, Adverse [...] general medical examination at a [facility] care facility PERIPHERAL NEUROPATHY 356.9 Active [...] by mouth twice daily NITROFURANTOIN MONOHYD MACRO [id number] No Longer Active Pam Gomez RETIREMENT ADMINISTRATOR Active DIFLUCAN 150 MG TAB 1 tablet by mouth daily FLUCONAZOLE 72757143775 Active Pam Gomez LPN Active CIPRO 250 MG TAB 1 tablet by mouth twice daily CIPROFLOXACIN HCL 61275976448 No Longer Active Pam Gomez LPN Active JANUVIA 100 MG ORAL TABS 1 daily SITAGLIPTIN PHOSPHATE 09523973731 Active Nadir Hector MD Active GLUCOTROL XL 5 MG [id number] one tablet daily GLIPIZIDE 58932949441 No Longer Active Nadir Hector MD Active BACTRIM DS 800-160 MG TABS 1 po BID x 7 days SULFAMETHOXAZOLE-TRIMETHOPRIM 48961436367 No Longer Active Jamal Burrell MD Active FOSAMAX 70 MG TABS 1 po qweek. Take 30min prior to first food/drink. Avoid lying down x 1 hour. ALENDRONATE SODIUM 69648685706 Active Nadir Hector MD Active AMOXICILLIN 500 MG CAPS 2 po BID x 10 days AMOXICILLIN 22370269572 No Longer Active Nadir Hector MD Active JANUVIA 100 MG TABS 1 tablet by mouth daily SITAGLIPTIN PHOSPHATE 65311574761 No Longer Active Nadir Hector MD Active JANUVIA 100 MG TABS Take 1 tab daily SITAGLIPTIN PHOSPHATE 77085561169 No Longer Active Sharon Nuñez Active MACROBID 100 MG CAP 1 cap by mouth twice daily NITROFURANTOIN MONOHYD MACRO 60830512307 No Longer Active Crystal Fernández APRN Active MACRODANTIN 100 MG CAPS 1 capsule by mouth twice daily for seven days NITROFURANTOIN MACROCRYSTAL 90508450515 No Longer Active Ro Yang RN Active BACTRIM DS 800-160 MG TABS one tablet twice a day for seven days SULFAMETHOXAZOLE-TRIMETHOPRIM 88426071033 No Longer Active HEMANTH Griffin Active BACTRIM DS 800-160 MG TABS TAKE ONE TABLET BY MOUTH TWICE DAILY FOR 7 DAYS SULFAMETHOXAZOLE-TRIMETHOPRIM 10235345224 No Longer Active Viviana Lal RN Active CIPRO 250 MG TABS TAKE ONE TABLET BY MOUTH TWICE DAILY FOR 5 DAYS CIPROFLOXACIN HCL 84198209026 No Longer Active Viviana Lal RN Active FLEXERIL 10 MG TABS 1/2 TO 1 TABLET Q12H NEEDED CYCLOBENZAPRINE HCL 09085334265 No Longer Active Viviana Lal RN Active AMLODIPINE BESYLATE 5 MG TABS 1 1/2 daily AMLODIPINE BESYLATE 40206128939 Active Nadir Hector MD Active ONGLYZA 5 MG TABS 1 QAM SAXAGLIPTIN HCL 73193436324 No Longer Active Nadir Hector MD Active AMLODIPINE BESYLATE 5 MG TABS 1 1/2 TABLET DAILY AMLODIPINE BESYLATE 78398397505 No Longer Active Nadir Hector MD Active LORTAB 5-500 MG TABS 1 BY MOUTH Q6H NEEDED HYDROCODONE- ACETAMINOPHEN 04161545195 No Longer Active Nadir Hector MD Active ACTOS 45 MG TABS 1 QD PIOGLITAZONE HCL 90040685250 No Longer Active Nadir Hector MD Active BACTRIM DS 800-160 MG TAB 1 tab by mouth twice daily TRIMETHOPRIM-SULFAMETHOXAZOLE 54262265774 No Longer Active Nadir Hector MD Active CALCIUM + D 600-200 MG-UNIT TABS 1 TABLET TWO TIMES A DAY CALCIUM CARBONATE-VITAMIN D 38030356067 Active Ro Yang RN Active METOPROLOL SUCCINATE 25 MG [id number] 1 QAM METOPROLOL SUCCINATE 35717348011 Active Nadir Hector MD Active AMARYL 4 MG TABS 1 QD GLIMEPIRIDE 57974757590 Active Nadir Hector MD Active LOVASTATIN 40 MG TABS 1 QD LOVASTATIN 12053225404 Active Nadir Hector MD Active GLUCOPHAGE 1000 MG TABS 1 TABLET TWO TIMES A DAY METFORMIN HCL 45839453766 Active Nadir Hector MD Active MAXZIDE-25 37.5-25 MG TABS 1 QD TRIAMTERENE-HCTZ 23910450433 Active Nadir Hector MD Active ACCUPRIL 40 MG TABS 1 QD QUINAPRIL HCL 35500589486 Active Nadir Hector MD Active BACTRIM DS 800-160 MG TAB 1 tab by mouth twice daily BACTRIM DS 800-160 MG TAB TRIMETHOPRIM-SULFAMETHOXAZOLE Inactive ACTOS 45 MG TABS 1 QD ACTOS 45 MG TABS 192863 PIOGLITAZONE HCL Inactive LORTAB 5-500 MG TABS 1 BY MOUTH Q6H NEEDED LORTAB 5-500 MG TABS HYDROCODONE-ACETAMINOPHEN Inactive AMLODIPINE BESYLATE 5 MG TABS 1 1/2 TABLET DAILY AMLODIPINE BESYLATE 5 MG TABS 433507 AMLODIPINE BESYLATE Inactive ONGLYZA 5 MG TABS [...] mouth twice daily MACROBID 100 MG CAP 791725 NITROFURANTOIN MONOHYD MACRO Inactive JANUVIA 100 MG TABS Take 1 tab daily JANUVIA 100 MG TABS SITAGLIPTIN PHOSPHATE Inactive GLUCOTROL XL 5 MG [id number] one tablet daily GLUCOTROL XL 5 MG [id number] GLIPIZIDE Inactive MACRODANTIN 100 MG CAPS 1 capsule by mouth twice daily for seven days MACRODANTIN 100 MG CAPS 898190 NITROFURANTOIN MACROCRYSTAL Inactive AMOXICILLIN 500 MG CAPS 2 po BID x 10 days AMOXICILLIN 500 MG CAPS 846517 AMOXICILLIN Inactive BACTRIM DS 800-160 MG TABS 1 po BID x 7 days BACTRIM DS 800-160 MG TABS SULFAMETHOXAZOLE-TRIMETHOPRIM Inactive CIPRO 250 MG TAB 1 tablet by mouth twice daily CIPRO 250 MG TAB 19740413 CIPROFLOXACIN HCL Inactive MACROBID 100 MG CAP 1 cap by mouth twice daily MACROBID 100 MG CAP 787589 NITROFURANTOIN MONOHYD MACRO Inactive Advance Directives Directive Description Start Date PERMISSION TO SHARE Immunizations Vaccine Administration Date Value Standard Description pneumococcal immunization administered Pneumovax 23 [CVX33] pneumococcal polysaccharide vaccine, 23 valent Seasonal influenza vaccine, injectable, containing preservative, for > 3 years old (Afluria, FluLaval, Fluzone, Fluvirin, Fluarix, Agriflu(>=18 yo)) Fluzone (>3 yrs.) [[id number]] Influenza, seasonal, injectable Vital Signs Date Name [...] HGBA1C - Chemistry sodium, serum 140 mmol/L 293-472 7840/07/23 potassium, serum 4.5 mmol/L 3.5-5.2 chloride, serum [...] 5.0-8.5 Encounters Code Encounter Date Provider Facility CPT-11734 Level 3 Est. Patient 16:43:04 TRUCK OPERATOR Nadir Hector MD [facility] CPT-92736 Level 4 Est. Patient 14:21:01 TRUCK OPERATOR Nadir Hector MD [facility] CPT-98121 Level 3 Est. Patient 16:41:34 CDT Nadir Hector MD [facility] CPT-44364 Level 4 Est. Patient 13:54:35 TRUCK OPERATOR Nadir Hector MD [facility] CPT-06280 Level 3 Est. Patient 15:51:21 CDT Nadir Hector MD [facility] CPT-54761 Level 4 New Patient 15:58:26 CDT Catalino Irene MD [facility] CPT-03179 Level 4 Est. Patient 15:42:38 TRUCK OPERATOR Nadir Hector MD [facility] Procedures Code Procedure Name Date Entry Date Standard Description CPT-000 Give Pneumovax 14:21:01 TRUCK OPERATOR CPT-000 Give Appropriate Flu Vaccine 14:21:01 TRUCK OPERATOR CPT-61300 Bone Density 08:41:23 TRUCK OPERATOR CPT-000 Give Appropriate Flu Vaccine 13:54:35 TRUCK OPERATOR CPT-000 Give Pneumovax 13:54:35 TRUCK OPERATOR CPT-62132 Administration 2+ single or combination vaccines inc oral 14:01:24 TRUCK OPERATOR CPT-59485 Administration single or combination vaccine inc oral 14 :01:24 TRUCK OPERATOR CPT-43008 Influenza High Dose age 65+ 14:01:24 TRUCK OPERATOR CPT-13531 Pneumovax 14:01:24 TRUCK OPERATOR CPT-20304 Venipuncture Draw Fee 10:36:48 CDT CPT-000 Give Appropriate Flu Vaccine 15:20:11 TRUCK OPERATOR CPT-34712 Administration single or combination vaccine inc oral 15 :50:33 TRUCK OPERATOR CPT-84924 Influenza High Dose age 65+ 15:50:33 TRUCK OPERATOR CPT-83758 LS spine AP and Lat 15:30:05 TRUCK OPERATOR CPT-00680 Hip comp min 2V 15:30:05 TRUCK OPERATOR CPT-20775 Postop F/U Visit 17:28:18 CDT CPT-OV Office Visit 15:04:38 CDT CPT-89383 Bladder Scan 15:58:26 CDT CPT-68297 Cystoscopy 15:58:26 CDT CPT-OV Office Visit 16:15:09 CDT CPT-000 Give Appropriate Flu Vaccine 16:33:10 TRUCK OPERATOR CPT-96323 Administration single or combination vaccine inc oral 19 :21:12 TRUCK OPERATOR CPT-35100 Influenza split virus > age 3 19:21:12 TRUCK OPERATOR
--- OUTSIDE RECORDS SUMMARY | 2017-07-23 09:29 | XMS REPORT ---
Author Author [facility] Medical Staff Organization [facility] Address [address] [place], [place] [address] Phone [phone] Care Team Providers Care Food Quality Technician Name Role Phone MARYANNE BOONE MD PP [phone] Summary purpose TRANSITION OF CARE AUTO GENERATION Chief Complaint and Reason for Visit No authorized Reason for Visit (Admitting Diagnosis) is available for this visit. Problem list No authorized problems tracked for continuity of care are available for this visit. Encounters No authorized problems tracked for encounter diagnoses are available for this visit. Medications No medications recorded for this patient visit Allergies, adverse reactions, alerts Allergen Category Ingredient Status Reaction Severity Onset NONE Food Allergy NONE Confirmed or Verified No known drug allergies No known drug allergies No known drug allergies Confirmed or Verified Immunizations No immunizations recorded for this patient visit Relevant diagnostic tests and/or laboratory data RESULTS Radiology Results [id number]:00 CT ABD/PELV WWO CON PACs Image DATE OF EXAM: 2014 [id number] ABD/PELV W/WO CONTRAST : RADIOLOGY REPORT DATE OF SERVICE:10/12/2014 HISTORY:Recurrent UTIs. PRE AND POST CONTRAST CT ABDOMEN AND PELVIS 1220 HOURS Pre and postcontrast axial scans were obtained at 5 mm intervals. 100 mL Isovue-300 was utilized for enhancement. The liver and spleen are normal. The pancreas and adrenal glands are within normal limits. The gallbladder is surgically absent. Both kidneys appear normal in size. There are no solid renal masses or calculi. There are a number of scattered cortical renal cysts. There are also a number of parapelvic cysts. The largest parapelvic cyst on the right measures 3 x 4 cm. The parapelvic cysts do produce mild mass effect on the renal pelves but no significant hydronephrosis. The ureters are normal in caliber. There are small opacities in the region of the pubis, suggesting prior bladder suspension surgery. There is a linear radiopacity along the right bladder wall. This measures 22 mm in AP and approximately 2 mm in diameter. This may be within the urothelium of the bladder, although intraluminal positioning of this is not entirely excluded. There is also mild asymmetrical thickening of the right bladder wall without a focal mass. There are sigmoid diverticula without evidence of diverticulitis. There are no pelvic masses. The appendix is normal. IMPRESSION: 1. Benign renal cortical and parapelvic cysts without other significant renal abnormality. 2. Small linear opacity within the right side of the bladder. This could represent a small foreign body. An area of linear calcification of the urothelium is also possible. I would recommend cystoscopic correlation. 3. Sigmoid diverticulosis with no evidence of diverticulitis. Reynold Veliz MD MWD/cc10/12/2014 12:38:00 / 10/12/2014 13:18:38 cc:Dr. Irene This document has been electronically Signed by: On: DATE OF EXAM: 2014 [id number] ABD/PELV W/WO CONTRAST : RADIOLOGY REPORT DATE OF SERVICE:10/12/2014 HISTORY:Recurrent UTIs. PRE AND POST CONTRAST CT ABDOMEN AND PELVIS 1220 HOURS Pre and postcontrast axial scans were obtained at 5 mm intervals. 100 mL Isovue-300 was utilized for enhancement. The liver and spleen are normal. The pancreas and adrenal glands are within normal limits. The gallbladder is surgically absent. Both kidneys appear normal in size. There are no solid renal masses or calculi. There are a number of scattered cortical renal cysts. There are also a number of parapelvic cysts. The largest parapelvic cyst on the right measures 3 x 4 cm. The parapelvic cysts do produce mild mass effect on the renal pelves but no significant hydronephrosis. The ureters are normal in caliber. There are small opacities in the region of the pubis, suggesting prior bladder suspension surgery. There is a linear radiopacity along the right bladder wall. This measures 22 mm in AP and approximately 2 mm in diameter. This may be within the urothelium of the bladder, although intraluminal positioning of this is not entirely excluded. There is also mild asymmetrical thickening of the right bladder wall without a focal mass. There are sigmoid diverticula without evidence of diverticulitis. There are no pelvic masses. The appendix is normal. IMPRESSION: 1. Benign renal cortical and parapelvic cysts without other significant renal abnormality. 2. Small linear opacity within the right side of the bladder. This could represent a small foreign body. An area of linear calcification of the urothelium is also possible. I would recommend cystoscopic correlation. 3. Sigmoid diverticulosis with no evidence of diverticulitis. Reynold Veliz MD MWZandra/cc10/12/2014 12:38:00 / 10/12/2014 13:18:38 cc:Dr. Irene This document has been electronically Signed by: REYNOLD VELIZ On: 20143:[id number] Result Amended on 2014-10-12 at 15:45:10. Previous status was NH. History of procedures No procedures recorded for this patient visit. Functional status No functional or cognitive status observations are available for this visit. Vital signs No authorized vital signs are available for this visit. Social history No Social History or smoking status observations were recorded for this visit. ( Unknown if ever smoked.) Treatment Plan No treatment plan text is available for this visit. Hospital discharge instructions No discharge instruction text is available for this visit.
--- OUTSIDE RECORDS SUMMARY | 2017-07-23 09:30 | XMS REPORT | Clinical Summary ---
Author Author Admin, IMTIAZ Organization [facility] Address Unknown Phone Unavailable Allergies, Adverse Reactions, [...] MD Routine general medical examination at a [facility] care facility PERIPHERAL NEUROPATHY 356.9 Active [...] MG ORAL TABS 1 daily SITAGLIPTIN PHOSPHATE 19588082577 Active Nadir Hector MD Active GLUCOTROL XL 5 MG [id number] one tablet daily GLIPIZIDE 81229810028 No Longer Active Nadir Hector MD Active BACTRIM DS 800-160 MG TABS 1 po BID x 7 days SULFAMETHOXAZOLE-TRIMETHOPRIM 94203789092 No Longer Active Jamal Burrell MD Active FOSAMAX 70 MG TABS 1 po qweek. Take 30min prior to first food/drink. Avoid lying down x 1 hour. ALENDRONATE SODIUM 28634602711 Active Nadir Hector MD Active AMOXICILLIN 500 MG CAPS 2 po BID x 10 days AMOXICILLIN 09610112985 No Longer Active Nadir Hector MD Active JANUVIA 100 MG TABS 1 tablet by mouth daily SITAGLIPTIN PHOSPHATE 02904230032 No Longer Active Nadir Hector MD Active JANUVIA 100 MG TABS Take 1 tab daily SITAGLIPTIN PHOSPHATE 79986838385 No Longer Active Sharon Nuñez Active MACROBID 100 MG CAP 1 cap by mouth twice daily NITROFURANTOIN MONOHYD MACRO 52694640118 No Longer Active Crystal Fernández APRN Active MACRODANTIN 100 MG CAPS 1 capsule by mouth twice daily for seven days NITROFURANTOIN MACROCRYSTAL 95770545164 No Longer Active Ro Yang RN Active BACTRIM DS 800-160 MG TABS one tablet twice a day for seven days SULFAMETHOXAZOLE-TRIMETHOPRIM 70753108065 No Longer Active Sancho HEMANTH Camejo Active BACTRIM DS 800-160 MG TABS TAKE ONE TABLET BY MOUTH TWICE DAILY FOR 7 DAYS SULFAMETHOXAZOLE-TRIMETHOPRIM 62640334525 No Longer Active Viviana Lal RN Active CIPRO 250 MG TABS TAKE ONE TABLET BY MOUTH TWICE DAILY FOR 5 DAYS CIPROFLOXACIN HCL 39297891526 No Longer Active Viviana Lal RN Active FLEXERIL 10 MG TABS 1/2 TO 1 TABLET Q12H NEEDED CYCLOBENZAPRINE HCL 76712126164 No Longer Active Viviana Lal RN Active AMLODIPINE BESYLATE 5 MG TABS 1 1/2 daily AMLODIPINE BESYLATE 83118252973 Active Nadir Hector MD Active ONGLYZA 5 MG TABS 1 QAM SAXAGLIPTIN HCL 86895481161 No Longer Active Nadir Hector MD Active AMLODIPINE BESYLATE 5 MG TABS 1 1/2 TABLET DAILY AMLODIPINE BESYLATE 00875087887 No Longer Active Nadir Hector MD Active LORTAB 5-500 MG TABS 1 BY MOUTH Q6H NEEDED HYDROCODONE- ACETAMINOPHEN 97514597448 No Longer Active Nadir Hector MD Active ACTOS 45 MG TABS 1 QD PIOGLITAZONE HCL 79644882572 No Longer Active Nadir Hector MD Active BACTRIM DS 800-160 MG TAB 1 tab by mouth twice daily TRIMETHOPRIM-SULFAMETHOXAZOLE 15183937951 No Longer Active Nadir Hector MD Active CALCIUM + D 600-200 MG-UNIT TABS 1 TABLET TWO TIMES A DAY CALCIUM CARBONATE-VITAMIN D 49349491697 Active Ro Trey CHAMPION Active METOPROLOL SUCCINATE 25 MG [id number] 1 QAM METOPROLOL SUCCINATE 03226379663 Active Nadir Hector MD Active AMARYL 4 MG TABS 1 QD GLIMEPIRIDE 49258247536 Active Nadir Hector MD Active LOVASTATIN 40 MG TABS 1 QD LOVASTATIN 97111301320 Active Nadir Hector MD Active GLUCOPHAGE 1000 MG TABS 1 TABLET TWO TIMES A DAY METFORMIN HCL 56408897745 Active Nadir Hector MD Active MAXZIDE-25 37.5-25 MG TABS 1 QD TRIAMTERENE-HCTZ 69963563288 Active Nadir Hector MD Active ACCUPRIL 40 MG TABS 1 QD QUINAPRIL HCL 24602528838 Active Nadir Hector MD Active BACTRIM DS 800-160 MG TAB 1 tab by mouth twice daily BACTRIM DS 800-160 MG TAB TRIMETHOPRIM-SULFAMETHOXAZOLE Inactive ACTOS 45 MG TABS 1 QD ACTOS 45 MG TABS 166843 PIOGLITAZONE HCL Inactive LORTAB 5-500 MG TABS 1 BY MOUTH Q6H NEEDED LORTAB 5-500 MG TABS HYDROCODONE-ACETAMINOPHEN Inactive AMLODIPINE BESYLATE 5 MG TABS 1 1/2 TABLET DAILY AMLODIPINE BESYLATE 5 MG TABS 388186 AMLODIPINE BESYLATE Inactive ONGLYZA 5 MG TABS [...] mouth twice daily MACROBID 100 MG CAP 526327 NITROFURANTOIN MONOHYD MACRO Inactive JANUVIA 100 MG TABS Take 1 tab daily JANUVIA 100 MG TABS SITAGLIPTIN PHOSPHATE Inactive GLUCOTROL XL 5 MG [id number] one tablet daily GLUCOTROL XL 5 MG [id number]-[id number] GLIPIZIDE Inactive MACRODANTIN 100 MG CAPS 1 capsule by mouth twice daily for seven days MACRODANTIN 100 MG CAPS 911002 NITROFURANTOIN MACROCRYSTAL Inactive AMOXICILLIN 500 MG CAPS 2 po BID x 10 days AMOXICILLIN 500 MG CAPS 505340 AMOXICILLIN Inactive BACTRIM DS 800-160 MG TABS [...] Fluvirin, Fluarix, Agriflu(>=18 yo)) Fluzone (>3 yrs.) [[id number]] Influenza, seasonal, injectable Vital Signs Date Name [...] HGBA1C - Chemistry sodium, serum 140 mmol/L 643-494 2803/07/23 potassium, serum 4.5 mmol/L 3.5-5.2 chloride, serum [...] 5.0-8.5 Encounters Code Encounter Date Provider Facility CPT-00363 Level 3 Est. Patient 16:43:04 RESERVATIONS AND TICKETING AGENT Nadir Hector MD [facility] CPT-54952 Level 4 Est. Patient 14:21:01 RESERVATIONS AND TICKETING AGENT Nadir Hector MD [facility] CPT-97227 Level 3 Est. Patient 16:41:34 CDT Nadir Hector MD [facility] CPT-28259 Level 4 Est. Patient 13:54:35 RESERVATIONS AND TICKETING AGENT Nadir Hector MD [facility] CPT-28152 Level 3 Est. Patient 15:51:21 CDT Nadir Hector MD [facility] CPT-73756 Level 4 New Patient 15:58:26 CDT Catalino Irene MD [facility] CPT-92214 Level 4 Est. Patient 15:42:38 RESERVATIONS AND TICKETING AGENT Nadir Hector MD [facility] Procedures Code Procedure Name Date Entry Date Standard Description CPT-000 Give Pneumovax 14:21:01 RESERVATIONS AND TICKETING AGENT CPT-000 Give Appropriate Flu Vaccine 14:21:01 RESERVATIONS AND TICKETING AGENT CPT-92882 Bone Density 08:41:23 RESERVATIONS AND TICKETING AGENT CPT-000 Give Appropriate Flu Vaccine 13:54:35 RESERVATIONS AND TICKETING AGENT CPT-000 Give Pneumovax 13:54:35 RESERVATIONS AND TICKETING AGENT CPT-33829 Administration 2+ single or combination vaccines inc oral 14:01:24 RESERVATIONS AND TICKETING AGENT CPT-05352 Administration single or combination vaccine inc oral 14 :01:24 RESERVATIONS AND TICKETING AGENT CPT-95509 Influenza High Dose age 65+ 14:01:24 RESERVATIONS AND TICKETING AGENT CPT-60431 Pneumovax 14:01:24 RESERVATIONS AND TICKETING AGENT CPT-37366 Venipuncture Draw Fee 10:36:48 CDT CPT-000 Give Appropriate Flu Vaccine 15:20:11 RESERVATIONS AND TICKETING AGENT CPT-80892 Administration single or combination vaccine inc oral 15 :50:33 RESERVATIONS AND TICKETING AGENT CPT-61306 Influenza High Dose age 65+ 15:50:33 RESERVATIONS AND TICKETING AGENT CPT-11325 LS spine AP and Lat 15:30:05 RESERVATIONS AND TICKETING AGENT CPT-00497 Hip comp min 2V 15:30:05 RESERVATIONS AND TICKETING AGENT CPT-00077 Postop F/U Visit 17:28:18 CDT CPT-OV Office Visit 15:04:38 CDT CPT-18912 Bladder Scan 15:58:26 CDT CPT-75693 Cystoscopy 15:58:26 CDT CPT-OV Office Visit 16:15:09 CDT CPT-000 Give Appropriate Flu Vaccine 16:33:10 RESERVATIONS AND TICKETING AGENT CPT-65376 Administration single or combination vaccine inc oral 19 :21:12 RESERVATIONS AND TICKETING AGENT CPT-53445 Influenza split virus > age 3 19:21:12 RESERVATIONS AND TICKETING AGENT
--- OUTSIDE RECORDS SUMMARY | 2017-07-23 09:30 | XMS REPORT ---
Author Author [facility] Medical Staff Organization [facility] Address [address] [place], [place] [address] Phone [phone] Care Team Providers Care Environmental Protection Inspector Name Role Phone MARYANNE BOONE MD PP [phone] MARYANNE BOONE MD PP [phone] Summary purpose TRANSITION OF CARE AUTO GENERATION Chief Complaint and Reason for Visit Admit Diagnosis 1 CYSTO RE/O FB (STONE VS SUTURE) Problem list No authorized problems tracked for [...] visit Relevant diagnostic tests and/or laboratory data No authorized results are available for this patient visit History of procedures No procedures recorded for this patient visit. Functional status Functional Status Finding Observation Time Vision Problems yes [id number]:39 Vision Correct Dev glasses :39 Ambulation Asst Dev none :39 Range of Motion full :20 Muscle Strength RUE 5 ROM full resist :20 Muscle Strength RLE 5 ROM full resist :20 Muscle Strength LUE 5 ROM full resist :20 Muscle Strength LLE 5 ROM full resist :20 Transfers assist x 1 :20 Ambulation in room :20 Balance steady :20 Bathing Assistance none :39 Eating Assistance none [id number]:39 Dressing Assistance none :39 Toileting Assistance none [id number]:39 Transfer Assistance none :39 Decline Slf Care/Mob no :39 Phys Cond Stable yes :39 Nutrition normal :20 Diet regular : Oral Cavity moist and intact : Teeth intact : Dental Hygiene good :20 Abdomen Appearance round :20 Abdomen soft : Bowel Sounds present : NG Tube no :20 Feeding Tube none :20 Harrell yes Comment: 3 way f/c to DD, CBI clamped off at this assessment This result is a modification to a previously-entered result. It was modified on 10/27/14 at 15: 05 by SULEMA. : Cont Bladder Irr no :20 Ostomy no :20 Stool normal : Urination dysuria :20 Quality sym/unlabored : Cough absent : Secretions no : Secretion Consist thin :20 Breath Sounds RUL clear :20 Breath Sounds RML clear :20 Breath Sounds RLL clear :20 Breath Sounds JUSTICE clear :20 Breath Sounds LLL clear :20 Airway natural : Chest Tube no :20 Oxygen no 08-44-361639:20 C-PAP no :20 BI-PAP no :20 Temp >100.4 no :20 Temp <96.8 no : Chills with rigors no : HR > 90bpm no :20 Respirations > 20 no :20 Systolic <90 no :20 headache stiff neck no :20 Rapid Resp no :20 IV Site Location L hand [id number]:20 IV Type peripheral 95-85-702247:20 IV Site Information discontinued :20 IV Site Start Attmpt 1 times 40-84-959969:05 IV Site Shay 20 :20 IV Site Appearance WNL [id number]:20 IV Site Color clear :20 IV Site Patent yes :20 Dressing Type occlusive :20 Nursing Note Pt states "I'm doing fantastic." :57 Cognitive Status Finding Observation Time Learning Ability comprehends well : Neurological no : Psychological no 02-07-754539:00 Physical no : Hearing no :00 Lens Grinder Needed no :00 Sign Language no : Emotional no : Vision yes :00 Laguage no :00 Financial no :00 Vital signs Type Value Date Respiration Rate 20breaths per minute : Pulse 68beats per minute : Oxygen Saturation 98% :22 BP Systolic 154mmHg :22 BP Diastolic 79mmHg :22 Temperature 97.6F :17 Height 61inches :32 Weight 150LB 48-48-200737:32 Social history Type Value Smoking Status NEVER SMOKER Treatment Plan No treatment plan text is available for this visit. Hospital discharge instructions Discharge Date/Time 10/27/14 1600 Accompanied By Judd Relationship spouse/signif other Dismissal Condition good Disposition on DC home Valuables no DC Inst/Educ Give yes Exit Care Educ Given yes PNE Vac 2014 Flu Vac 2014 Tetanus Vac unknown Diet Explained yes Follow up appt appt made (specify) Follow Up Appt D/T 11/09/14 1134
--- OUTSIDE RECORDS SUMMARY | 2017-07-23 09:31 | XMS REPORT | Clinical Summary ---
Author Author Admin, IMTIAZ Organization [facility] Address Unknown Phone Unavailable Allergies, Adverse [...] MD Routine general medical examination at a [facility] care facility PERIPHERAL NEUROPATHY 356.9 [...] AMOXICILLIN 500 MG ORAL CAPS tid AMOXICILLIN 10345458335 Active Catalino Irene MD Active BACTRIM DS TABS Take 1 po BID SULFAMETHOXAZOLE- TRIMETHOPRIM TABS 39330493683 No Longer Active Pam Gomez EAR NOSE THROAT SURGEON Active MACROBID 100 MG CAP 1 cap by mouth twice daily NITROFURANTOIN MONOHYD MACRO 63201182710 No Longer Active Pam Gomez EAR NOSE THROAT SURGEON Active DIFLUCAN 150 MG TAB 1 tablet by mouth daily FLUCONAZOLE 93082924454 Active Pam Gomez EAR NOSE THROAT SURGEON Active CIPRO 250 MG TAB 1 tablet by mouth twice daily CIPROFLOXACIN HCL 08745776945 No Longer Active Pam Gomez LPN Active JANUVIA 100 MG ORAL TABS 1 daily SITAGLIPTIN PHOSPHATE 62808992068 Active Nadir Hector MD Active GLUCOTROL XL 5 MG [id number] one tablet daily GLIPIZIDE 32379220242 No Longer Active Nadir Hector MD Active BACTRIM DS 800-160 MG TABS 1 po BID x 7 days SULFAMETHOXAZOLE-TRIMETHOPRIM 22525039840 No Longer Active Jamal Burrell MD Active FOSAMAX 70 MG TABS 1 po qweek. Take 30min prior to first food/drink. Avoid lying down x 1 hour. ALENDRONATE SODIUM 35347299289 Active Nadir Hector MD Active AMOXICILLIN 500 MG CAPS 2 po BID x 10 days AMOXICILLIN 36442844412 No Longer Active Nadir Hector MD Active JANUVIA 100 MG TABS 1 tablet by mouth daily SITAGLIPTIN PHOSPHATE 86953428852 No Longer Active Nadir Hector MD Active JANUVIA 100 MG TABS Take 1 tab daily SITAGLIPTIN PHOSPHATE 13541877068 No Longer Active Sharon Nuñez Active MACROBID 100 MG CAP 1 cap by mouth twice daily NITROFURANTOIN MONOHYD MACRO 01218384978 No Longer Active Crystal Fernández APRN Active MACRODANTIN 100 MG CAPS 1 capsule by mouth twice daily for seven days NITROFURANTOIN MACROCRYSTAL 96026995286 No Longer Active Ro Yang RN Active BACTRIM DS 800-160 MG TABS one tablet twice a day for seven days SULFAMETHOXAZOLE-TRIMETHOPRIM 43850182929 No Longer Active HEMANTH Griffin Active BACTRIM DS 800-160 MG TABS TAKE ONE TABLET BY MOUTH TWICE DAILY FOR 7 DAYS SULFAMETHOXAZOLE-TRIMETHOPRIM 36221263558 No Longer Active Viviana Lal RN Active CIPRO 250 MG TABS TAKE ONE TABLET BY MOUTH TWICE DAILY FOR 5 DAYS CIPROFLOXACIN HCL 68607284380 No Longer Active Viviana Lal RN Active FLEXERIL 10 MG TABS 1/2 TO 1 TABLET Q12H NEEDED CYCLOBENZAPRINE HCL 73973294100 No Longer Active Jane Lew Lukasz RN Active AMLODIPINE BESYLATE 5 MG TABS 1 1/2 daily AMLODIPINE BESYLATE 20345953389 Active Nadir Hector MD Active ONGLYZA 5 MG TABS 1 QAM SAXAGLIPTIN HCL 77033480319 No Longer Active Nadir Hector MD Active AMLODIPINE BESYLATE 5 MG TABS 1 1/2 TABLET DAILY AMLODIPINE BESYLATE 77737313604 No Longer Active Nadir Hector MD Active LORTAB 5-500 MG TABS 1 BY MOUTH Q6H NEEDED HYDROCODONE- ACETAMINOPHEN 63911691284 No Longer Active Nadir Hector MD Active ACTOS 45 MG TABS 1 QD PIOGLITAZONE HCL 18023919649 No Longer Active Nadir Hector MD Active BACTRIM DS 800-160 MG TAB 1 tab by mouth twice daily TRIMETHOPRIM-SULFAMETHOXAZOLE 48507869874 No Longer Active Nadir Hector MD Active CALCIUM + D 600-200 MG-UNIT TABS 1 TABLET TWO TIMES A DAY CALCIUM CARBONATE-VITAMIN D 84813660999 Active Ro Trey RN Active METOPROLOL SUCCINATE 25 MG [id number] 1 QAM METOPROLOL SUCCINATE 82390279234 Active Nadir Hector MD Active AMARYL 4 MG TABS 1 QD GLIMEPIRIDE 07264647178 Active Nadir Hector MD Active LOVASTATIN 40 MG TABS 1 QD LOVASTATIN 88934825058 Active Nadir Hector MD Active GLUCOPHAGE 1000 MG TABS 1 TABLET TWO TIMES A DAY METFORMIN HCL 69534574138 Active Nadir Hector MD Active MAXZIDE-25 37.5-25 MG TABS 1 QD TRIAMTERENE-HCTZ 93673162096 Active Nadir Hector MD Active ACCUPRIL 40 MG TABS 1 QD QUINAPRIL HCL 87538859769 Active Nadir Hector MD Active BACTRIM DS 800-160 MG TAB 1 tab by mouth twice daily BACTRIM DS 800-160 MG TAB TRIMETHOPRIM-SULFAMETHOXAZOLE Inactive ACTOS 45 MG TABS 1 QD ACTOS 45 MG TABS 100293 PIOGLITAZONE HCL Inactive LORTAB 5-500 MG TABS 1 BY MOUTH Q6H NEEDED LORTAB 5-500 MG TABS HYDROCODONE-ACETAMINOPHEN Inactive AMLODIPINE BESYLATE 5 MG TABS 1 1/2 TABLET DAILY AMLODIPINE BESYLATE 5 MG TABS 112774 AMLODIPINE BESYLATE Inactive ONGLYZA 5 MG TABS 1 QAM ONGLYZA 5 MG TABS SAXAGLIPTIN HCL Inactive FLEXERIL 10 MG TABS 1/2 TO 1 TABLET Q12H NEEDED FLEXERIL 10 MG TABS CYCLOBENZAPRINE HCL Inactive CIPRO 250 MG TABS TAKE ONE TABLET BY MOUTH TWICE DAILY FOR 5 DAYS CIPRO 250 MG TABS 110261 CIPROFLOXACIN HCL Inactive BACTRIM DS 800-160 MG TABS TAKE ONE TABLET BY MOUTH TWICE DAILY FOR 7 DAYS BACTRIM DS 800-160 MG TABS SULFAMETHOXAZOLE-TRIMETHOPRIM Inactive BACTRIM DS 800-160 MG TABS one tablet twice a day for seven days BACTRIM DS 800-160 MG TABS SULFAMETHOXAZOLE-TRIMETHOPRIM Inactive MACROBID 100 MG CAP 1 cap by mouth twice daily MACROBID 100 MG CAP 983336 NITROFURANTOIN MONOHYD MACRO Inactive JANUVIA 100 MG TABS Take 1 tab daily JANUVIA 100 MG TABS SITAGLIPTIN PHOSPHATE Inactive GLUCOTROL XL 5 MG [id number] one tablet daily GLUCOTROL XL 5 MG [id number] GLIPIZIDE Inactive MACRODANTIN 100 MG CAPS 1 capsule by mouth twice daily for seven days MACRODANTIN 100 MG CAPS 346721 NITROFURANTOIN MACROCRYSTAL Inactive AMOXICILLIN 500 MG CAPS 2 po BID x 10 days AMOXICILLIN 500 MG CAPS 484959 AMOXICILLIN Inactive BACTRIM DS 800-160 MG TABS 1 po BID x 7 days BACTRIM DS 800-160 MG TABS SULFAMETHOXAZOLE-TRIMETHOPRIM Inactive CIPRO 250 MG TAB 1 tablet by mouth twice daily CIPRO 250 MG TAB 605279 CIPROFLOXACIN HCL Inactive MACROBID 100 MG CAP 1 cap by mouth twice daily MACROBID 100 MG CAP 865466 NITROFURANTOIN MONOHYD MACRO Inactive BACTRIM DS TABS [...] Fluvirin, Fluarix, Agriflu(>=18 yo)) Fluzone (>3 yrs.) [[id number]] Influenza, seasonal, injectable Vital Signs Date Name [...] HGBA1C - Chemistry sodium, serum 140 mmol/L 552-819 6576/07/23 potassium, serum 4.5 mmol/L 3.5-5.2 chloride, serum [...] 0.2 Encounters Code Encounter Date Provider Facility CPT-49097 Level 4 New Patient 14:59:23 CDT Catalino Irene MD [facility] CPT-57447 Level 3 Est. Patient 16:43:04 CLEARING DISTRIBUTION CLERK Nadir Hector MD [facility] CPT-04645 Level 4 Est. Patient 14:21:01 CLEARING DISTRIBUTION CLERK Nadir Hector MD [facility] CPT-70561 Level 3 Est. Patient 16:41:34 CDT Nadir Hector MD [facility] CPT-92330 Level 4 Est. Patient 13:54:35 CLEARING DISTRIBUTION CLERK Nadir Hector MD [facility] CPT-30210 Level 3 Est. Patient 15:51:21 CDT Nadir Hector MD [facility] CPT-79499 Level 4 New Patient 15:58:26 CDT Catalino Irene MD [facility] CPT-25702 Level 4 Est. Patient 15:42:38 CLEARING DISTRIBUTION CLERK Nadir Hector MD [facility] Procedures Code Procedure Name Date Entry Date Standard Description CPT-62067 Urine Dip (Floor Use Only) 14:59:25 CDT CPT-75690 Bladder Scan 14:59:24 CDT CPT-25350 Cystoscopy 14:59:24 CDT CPT-37361 Abd single AP View 12:13:13 CDT CPT-000 Give Pneumovax 14:21:01 CLEARING DISTRIBUTION CLERK CPT-000 Give Appropriate Flu Vaccine 14:21:01 CLEARING DISTRIBUTION CLERK CPT-51542 Bone Density 08:41:23 CLEARING DISTRIBUTION CLERK CPT-000 Give Appropriate Flu Vaccine 13:54:35 CLEARING DISTRIBUTION CLERK CPT-000 Give Pneumovax 13:54:35 CLEARING DISTRIBUTION CLERK CPT-60924 Administration 2+ single or combination vaccines inc oral 14:01:24 CLEARING DISTRIBUTION CLERK CPT-67502 Administration single or combination vaccine inc oral 14 :01:24 CLEARING DISTRIBUTION CLERK CPT-20752 Influenza High Dose age 65+ 14:01:24 CLEARING DISTRIBUTION CLERK CPT-16336 Pneumovax 14:01:24 CLEARING DISTRIBUTION CLERK CPT-09035 Venipuncture Draw Fee 10:36:48 CDT CPT-000 Give Appropriate Flu Vaccine 15:20:11 CLEARING DISTRIBUTION CLERK CPT-59134 Administration single or combination vaccine inc oral 15 :50:33 CLEARING DISTRIBUTION CLERK CPT-93088 Influenza High Dose age 65+ 15:50:33 CLEARING DISTRIBUTION CLERK CPT-99151 LS spine AP and Lat 15:30:05 CLEARING DISTRIBUTION CLERK CPT-09654 Hip comp min 2V 15:30:05 CLEARING DISTRIBUTION CLERK CPT-03809 Postop F/U Visit 17:28:18 CDT CPT-OV Office Visit 15:04:38 CDT CPT-66583 Bladder Scan 15:58:26 CDT CPT-26245 Cystoscopy 15:58:26 CDT CPT-OV Office Visit 16:15:09 CDT CPT-000 Give Appropriate Flu Vaccine 16:33:10 CLEARING DISTRIBUTION CLERK CPT-00227 Administration single or combination vaccine inc oral 19 :21:12 CLEARING DISTRIBUTION CLERK CPT-70482 Influenza split virus > age 3 19:21:12 CLEARING DISTRIBUTION CLERK
--- OUTSIDE RECORDS SUMMARY | 2017-07-23 09:32 | XMS REPORT | Clinical Summary ---
Author Author Admin, IMTIAZ Organization [facility] Address Unknown Phone Unavailable Allergies, Adverse [...] MD Routine general medical examination at a [facility] care facility PERIPHERAL NEUROPATHY 356.9 Active [...] TAB 1 tablet by mouth daily FLUCONAZOLE 84977093085 Active Pam Gomez LPN Active CIPRO 250 MG TAB 1 tablet by mouth twice daily CIPROFLOXACIN HCL 10391444144 Active Pam Gomez LPN Active JANUVIA 100 MG ORAL TABS 1 daily SITAGLIPTIN PHOSPHATE 86754869225 Active Nadir Hector MD Active GLUCOTROL XL 5 MG [id number] one tablet daily GLIPIZIDE 14876111838 No Longer Active Nadir Hector MD Active BACTRIM DS 800-160 MG TABS 1 po BID x 7 days SULFAMETHOXAZOLE-TRIMETHOPRIM 83688947708 No Longer Active Jamal Burrell MD Active FOSAMAX 70 MG TABS 1 po qweek. Take 30min prior to first food/drink. Avoid lying down x 1 hour. ALENDRONATE SODIUM 65081372648 Active Nadir Hector MD Active AMOXICILLIN 500 MG CAPS 2 po BID x 10 days AMOXICILLIN 59992372068 No Longer Active Nadir Hector MD Active JANUVIA 100 MG TABS 1 tablet by mouth daily SITAGLIPTIN PHOSPHATE 92777328238 No Longer Active Nadir Hector MD Active JANUVIA 100 MG TABS Take 1 tab daily SITAGLIPTIN PHOSPHATE 58513868783 No Longer Active Sharon Nuñez Active MACROBID 100 MG CAP 1 cap by mouth twice daily NITROFURANTOIN MONOHYD MACRO 51097090847 No Longer Active Crystal Fernández APRN Active MACRODANTIN 100 MG CAPS 1 capsule by mouth twice daily for seven days NITROFURANTOIN MACROCRYSTAL 40273513349 No Longer Active Ro Yang RN Active BACTRIM DS 800-160 MG TABS one tablet twice a day for seven days SULFAMETHOXAZOLE-TRIMETHOPRIM 45769297796 No Longer Active HEMANTH Griffin Active BACTRIM DS 800-160 MG TABS TAKE ONE TABLET BY MOUTH TWICE DAILY FOR 7 DAYS SULFAMETHOXAZOLE-TRIMETHOPRIM 34101169701 No Longer Active Viviana Lal RN Active CIPRO 250 MG TABS TAKE ONE TABLET BY MOUTH TWICE DAILY FOR 5 DAYS CIPROFLOXACIN HCL 06461061148 No Longer Active Viviana Lal RN Active FLEXERIL 10 MG TABS 1/2 TO 1 TABLET Q12H NEEDED CYCLOBENZAPRINE HCL 41114873153 No Longer Active Viviana Lal RN Active AMLODIPINE BESYLATE 5 MG TABS 1 1/2 daily AMLODIPINE BESYLATE 94576586133 Active Nadir Hector MD Active ONGLYZA 5 MG TABS 1 QAM SAXAGLIPTIN HCL 80784090906 No Longer Active Nadir Hector MD Active AMLODIPINE BESYLATE 5 MG TABS 1 1/2 TABLET DAILY AMLODIPINE BESYLATE 67563552908 No Longer Active Nadir Hector MD Active LORTAB 5-500 MG TABS 1 BY MOUTH Q6H NEEDED HYDROCODONE- ACETAMINOPHEN 59536169191 No Longer Active Nadir Hector MD Active ACTOS 45 MG TABS 1 QD PIOGLITAZONE HCL 49491017905 No Longer Active Nadir Hector MD Active BACTRIM DS 800-160 MG TAB 1 tab by mouth twice daily TRIMETHOPRIM-SULFAMETHOXAZOLE 82938386150 No Longer Active Nadir Hector MD Active CALCIUM + D 600-200 MG-UNIT TABS 1 TABLET TWO TIMES A DAY CALCIUM CARBONATE-VITAMIN D 19934630128 Active Ro Yang RN Active METOPROLOL SUCCINATE 25 MG [id number] 1 QAM METOPROLOL SUCCINATE 17596177845 Active Nadir Hector MD Active AMARYL 4 MG TABS 1 QD GLIMEPIRIDE 06458340644 Active Nadir Hector MD Active LOVASTATIN 40 MG TABS 1 QD LOVASTATIN 17371111966 Active Nadir Hector MD Active GLUCOPHAGE 1000 MG TABS 1 TABLET TWO TIMES A DAY METFORMIN HCL 67417335443 Active Nadir Hector MD Active MAXZIDE-25 37.5-25 MG TABS 1 QD TRIAMTERENE-HCTZ 25725052888 Active Nadir Hector MD Active ACCUPRIL 40 MG TABS 1 QD QUINAPRIL HCL 83985381027 Active Nadir Hector MD Active BACTRIM DS 800-160 MG TAB 1 tab by mouth twice daily BACTRIM DS 800-160 MG TAB TRIMETHOPRIM-SULFAMETHOXAZOLE Inactive ACTOS 45 MG TABS 1 QD ACTOS 45 MG TABS 912746 PIOGLITAZONE HCL Inactive LORTAB 5-500 MG TABS 1 BY MOUTH Q6H NEEDED LORTAB 5-500 MG TABS HYDROCODONE-ACETAMINOPHEN Inactive AMLODIPINE BESYLATE 5 MG TABS 1 1/2 TABLET DAILY AMLODIPINE BESYLATE 5 MG TABS 720496 AMLODIPINE BESYLATE Inactive ONGLYZA 5 MG TABS [...] mouth twice daily MACROBID 100 MG CAP 048910 NITROFURANTOIN MONOHYD MACRO Inactive JANUVIA 100 MG TABS Take 1 tab daily JANUVIA 100 MG TABS SITAGLIPTIN PHOSPHATE Inactive GLUCOTROL XL 5 MG [id number] one tablet daily GLUCOTROL XL 5 MG [id number] GLIPIZIDE Inactive MACRODANTIN 100 MG CAPS 1 capsule by mouth twice daily for seven days MACRODANTIN 100 MG CAPS 583930 NITROFURANTOIN MACROCRYSTAL Inactive AMOXICILLIN 500 MG CAPS 2 po BID x 10 days AMOXICILLIN 500 MG CAPS 310404 AMOXICILLIN Inactive BACTRIM DS 800-160 MG TABS [...] Fluvirin, Fluarix, Agriflu(>=18 yo)) Fluzone (>3 yrs.) [[id number]] Influenza, seasonal, injectable Vital Signs Date Name [...] HGBA1C - Chemistry sodium, serum 140 mmol/L 820-428 1001/07/23 potassium, serum 4.5 mmol/L 3.5-5.2 chloride, serum [...] 5.0-8.5 Encounters Code Encounter Date Provider Facility CPT-98182 Level 3 Est. Patient 16:43:04 PERSONAL HEALTH COACH Nadir Hector MD [facility] CPT-72806 Level 4 Est. Patient 14:21:01 PERSONAL HEALTH COACH Nadir Hector MD [facility] CPT-49029 Level 3 Est. Patient 16:41:34 CDT Nadir Hector MD [facility] CPT-88239 Level 4 Est. Patient 13:54:35 PERSONAL HEALTH COACH Nadir Hector MD [facility] CPT-55731 Level 3 Est. Patient 15:51:21 CDT Nadir Hector MD [facility] CPT-43058 Level 4 New Patient 15:58:26 CDT Catalino Irene MD [facility] CPT-08941 Level 4 Est. Patient 15:42:38 PERSONAL HEALTH COACH Nadir Hector MD [facility] Procedures Code Procedure Name Date Entry Date Standard Description CPT-000 Give Pneumovax 14:21:01 PERSONAL HEALTH COACH CPT-000 Give Appropriate Flu Vaccine 14:21:01 PERSONAL HEALTH COACH CPT-72548 Bone Density 08:41:23 PERSONAL HEALTH COACH CPT-000 Give Appropriate Flu Vaccine 13:54:35 PERSONAL HEALTH COACH CPT-000 Give Pneumovax 13:54:35 PERSONAL HEALTH COACH CPT-64483 Administration 2+ single or combination vaccines inc oral 14:01:24 PERSONAL HEALTH COACH CPT-85204 Administration single or combination vaccine inc oral 14 :01:24 PERSONAL HEALTH COACH CPT-81636 Influenza High Dose age 65+ 14:01:24 PERSONAL HEALTH COACH CPT-06122 Pneumovax 14:01:24 PERSONAL HEALTH COACH CPT-33139 Venipuncture Draw Fee 10:36:48 CDT CPT-000 Give Appropriate Flu Vaccine 15:20:11 PERSONAL HEALTH COACH CPT-31953 Administration single or combination vaccine inc oral 15 :50:33 PERSONAL HEALTH COACH CPT-49549 Influenza High Dose age 65+ 15:50:33 PERSONAL HEALTH COACH CPT-83631 LS spine AP and Lat 15:30:05 PERSONAL HEALTH COACH CPT-54746 Hip comp min 2V 15:30:05 PERSONAL HEALTH COACH CPT-91231 Postop F/U Visit 17:28:18 CDT CPT-OV Office Visit 15:04:38 CDT CPT-05483 Bladder Scan 15:58:26 CDT CPT-50670 Cystoscopy 15:58:26 CDT CPT-OV Office Visit 16:15:09 CDT CPT-000 Give Appropriate Flu Vaccine 16:33:10 PERSONAL HEALTH COACH CPT-16078 Administration single or combination vaccine inc oral 19 :21:12 PERSONAL HEALTH COACH CPT-99786 Influenza split virus > age 3 19:21:12 PERSONAL HEALTH COACH
--- OUTSIDE RECORDS SUMMARY | 2017-07-23 09:33 | XMS REPORT | Clinical Summary ---
Author Author Admin, IMTIAZ Organization [facility] Address Unknown Phone Unavailable Allergies, [...] MD Routine general medical examination at a [facility] care facility PERIPHERAL NEUROPATHY 356.9 Active [...] by mouth twice daily NITROFURANTOIN MONOHYD MACRO 63648438997 Active Pam Gomez OUTDOOR FITNESS TRAINER Active DIFLUCAN 150 MG TAB 1 tablet by mouth daily FLUCONAZOLE 47361221567 Active Pam Gomez LPN Active CIPRO 250 MG TAB 1 tablet by mouth twice daily CIPROFLOXACIN HCL 52830822355 No Longer Active Pam Gomez LPN Active JANUVIA 100 MG ORAL TABS 1 daily SITAGLIPTIN PHOSPHATE 20056407483 Active Nadir Hector MD Active GLUCOTROL XL 5 MG [id number] one tablet daily GLIPIZIDE 52292441956 No Longer Active Nadir Hector MD Active BACTRIM DS 800-160 MG TABS 1 po BID x 7 days SULFAMETHOXAZOLE-TRIMETHOPRIM 28120690007 No Longer Active Jamal Burrell MD Active FOSAMAX 70 MG TABS 1 po qweek. Take 30min prior to first food/drink. Avoid lying down x 1 hour. ALENDRONATE SODIUM 28163424834 Active Nadir Hector MD Active AMOXICILLIN 500 MG CAPS 2 po BID x 10 days AMOXICILLIN 23140392607 No Longer Active Nadir Hector MD Active JANUVIA 100 MG TABS 1 tablet by mouth daily SITAGLIPTIN PHOSPHATE 89158226589 No Longer Active Nadir Hector MD Active JANUVIA 100 MG TABS Take 1 tab daily SITAGLIPTIN PHOSPHATE 39910253171 No Longer Active Sharon Nuñez Active MACROBID 100 MG CAP 1 cap by mouth twice daily NITROFURANTOIN MONOHYD MACRO 29758402752 No Longer Active Crystal Fernández APRN Active MACRODANTIN 100 MG CAPS 1 capsule by mouth twice daily for seven days NITROFURANTOIN MACROCRYSTAL 60008172617 No Longer Active Ro Yang RN Active BACTRIM DS 800-160 MG TABS one tablet twice a day for seven days SULFAMETHOXAZOLE-TRIMETHOPRIM 86936053219 No Longer Active HEMANTH Griffin Active BACTRIM DS 800-160 MG TABS TAKE ONE TABLET BY MOUTH TWICE DAILY FOR 7 DAYS SULFAMETHOXAZOLE-TRIMETHOPRIM 56378318165 No Longer Active Viviana Lal RN Active CIPRO 250 MG TABS TAKE ONE TABLET BY MOUTH TWICE DAILY FOR 5 DAYS CIPROFLOXACIN HCL 76102285957 No Longer Active Viviana Lal RN Active FLEXERIL 10 MG TABS 1/2 TO 1 TABLET Q12H NEEDED CYCLOBENZAPRINE HCL 19222548393 No Longer Active Viviana Lal RN Active AMLODIPINE BESYLATE 5 MG TABS 1 1/2 daily AMLODIPINE BESYLATE 87449869219 Active Nadir Hector MD Active ONGLYZA 5 MG TABS 1 QAM SAXAGLIPTIN HCL 05594262212 No Longer Active Nadir Hector MD Active AMLODIPINE BESYLATE 5 MG TABS 1 1/2 TABLET DAILY AMLODIPINE BESYLATE 91623021690 No Longer Active Nadir Hector MD Active LORTAB 5-500 MG TABS 1 BY MOUTH Q6H NEEDED HYDROCODONE- ACETAMINOPHEN 81030021270 No Longer Active Nadir Hector MD Active ACTOS 45 MG TABS 1 QD PIOGLITAZONE HCL 17560178366 No Longer Active Nadir Hector MD Active BACTRIM DS 800-160 MG TAB 1 tab by mouth twice daily TRIMETHOPRIM-SULFAMETHOXAZOLE 81158757538 No Longer Active Nadir Hector MD Active CALCIUM + D 600-200 MG-UNIT TABS 1 TABLET TWO TIMES A DAY CALCIUM CARBONATE-VITAMIN D 08866139279 Active Ro Yang RN Active METOPROLOL SUCCINATE 25 MG [id number] 1 QAM METOPROLOL SUCCINATE 62908637026 Active Nadir Hector MD Active AMARYL 4 MG TABS 1 QD GLIMEPIRIDE 08487316534 Active Nadir Hector MD Active LOVASTATIN 40 MG TABS 1 QD LOVASTATIN 99687677664 Active Nadir Hector MD Active GLUCOPHAGE 1000 MG TABS 1 TABLET TWO TIMES A DAY METFORMIN HCL 69435290169 Active Nadir Hector MD Active MAXZIDE-25 37.5-25 MG TABS 1 QD TRIAMTERENE-HCTZ 16828290683 Active Nadir Hector MD Active ACCUPRIL 40 MG TABS 1 QD QUINAPRIL HCL 83478438491 Active Nadir Hector MD Active BACTRIM DS 800-160 MG TAB 1 tab by mouth twice daily BACTRIM DS 800-160 MG TAB TRIMETHOPRIM-SULFAMETHOXAZOLE Inactive ACTOS 45 MG TABS 1 QD ACTOS 45 MG TABS 748120 PIOGLITAZONE HCL Inactive LORTAB 5-500 MG TABS 1 BY MOUTH Q6H NEEDED LORTAB 5-500 MG TABS HYDROCODONE-ACETAMINOPHEN Inactive AMLODIPINE BESYLATE 5 MG TABS 1 1/2 TABLET DAILY AMLODIPINE BESYLATE 5 MG TABS 277573 AMLODIPINE BESYLATE Inactive ONGLYZA 5 MG TABS [...] mouth twice daily MACROBID 100 MG CAP 624766 NITROFURANTOIN MONOHYD MACRO Inactive JANUVIA 100 MG TABS Take 1 tab daily JANUVIA 100 MG TABS SITAGLIPTIN PHOSPHATE Inactive GLUCOTROL XL 5 MG [id number] one tablet daily GLUCOTROL XL 5 MG [id number] GLIPIZIDE Inactive MACRODANTIN 100 MG CAPS 1 capsule by mouth twice daily for seven days MACRODANTIN 100 MG CAPS 895108 NITROFURANTOIN MACROCRYSTAL Inactive AMOXICILLIN 500 MG CAPS 2 po BID x 10 days AMOXICILLIN 500 MG CAPS 850815 AMOXICILLIN Inactive BACTRIM DS 800-160 MG TABS 1 po BID x 7 days BACTRIM DS 800-160 MG TABS SULFAMETHOXAZOLE-TRIMETHOPRIM Inactive CIPRO 250 MG TAB 1 tablet by mouth twice daily CIPRO 250 MG TAB 19740413 CIPROFLOXACIN HCL Inactive Advance Directives Directive Description Start Date PERMISSION TO SHARE Immunizations Vaccine Administration Date Value Standard Description pneumococcal immunization administered Pneumovax 23 [[id number]] pneumococcal polysaccharide vaccine, 23 valent Seasonal influenza vaccine, injectable, containing preservative, for > 3 years old (Afluria, FluLaval, Fluzone, Fluvirin, Fluarix, Agriflu(>=18 yo)) Fluzone (>3 yrs.) [[id number]] Influenza, seasonal, injectable Vital Signs Date Name [...] HGBA1C - Chemistry sodium, serum 140 mmol/L 783-021 6689/07/23 potassium, serum 4.5 mmol/L 3.5-5.2 chloride, serum [...] 5.0-8.5 Encounters Code Encounter Date Provider Facility CPT-75823 Level 3 Est. Patient 16:43:04 ZINC ETCHER Nadir Hector MD [facility] CPT-06997 Level 4 Est. Patient 14:21:01 ZINC ETCHER Nadir Hector MD [facility] CPT-62097 Level 3 Est. Patient 16:41:34 CDT Nadir Hector MD [facility] CPT-99883 Level 4 Est. Patient 13:54:35 ZINC ETCHER Nadir Hector MD [facility] CPT-10108 Level 3 Est. Patient 15:51:21 CDT Nadir Hector MD [facility] CPT-17414 Level 4 New Patient 15:58:26 CDT Catalino Irene MD [facility] CPT-09422 Level 4 Est. Patient 15:42:38 ZINC ETCHER Nadir Hector MD [facility] Procedures Code Procedure Name Date Entry Date Standard Description CPT-000 Give Pneumovax 14:21:01 ZINC ETCHER CPT-000 Give Appropriate Flu Vaccine 14:21:01 ZINC ETCHER CPT-93801 Bone Density 08:41:23 ZINC ETCHER CPT-000 Give Appropriate Flu Vaccine 13:54:35 ZINC ETCHER CPT-000 Give Pneumovax 13:54:35 ZINC ETCHER CPT-46107 Administration 2+ single or combination vaccines inc oral 14:01:24 ZINC ETCHER CPT-82837 Administration single or combination vaccine inc oral 14 :01:24 ZINC ETCHER CPT-57572 Influenza High Dose age 65+ 14:01:24 ZINC ETCHER CPT-58905 Pneumovax 14:01:24 ZINC ETCHER CPT-43128 Venipuncture Draw Fee 10:36:48 CDT CPT-000 Give Appropriate Flu Vaccine 15:20:11 ZINC ETCHER CPT-64125 Administration single or combination vaccine inc oral 15 :50:33 ZINC ETCHER CPT-51003 Influenza High Dose age 65+ 15:50:33 ZINC ETCHER CPT-08286 LS spine AP and Lat 15:30:05 ZINC ETCHER CPT-47532 Hip comp min 2V 15:30:05 ZINC ETCHER CPT-89637 Postop F/U Visit 17:28:18 CDT CPT-OV Office Visit 15:04:38 CDT CPT-37397 Bladder Scan 15:58:26 CDT CPT-22629 Cystoscopy 15:58:26 CDT CPT-OV Office Visit 16:15:09 CDT CPT-000 Give Appropriate Flu Vaccine 16:33:10 ZINC ETCHER CPT-52915 Administration single or combination vaccine inc oral 19 :21:12 ZINC ETCHER CPT-30766 Influenza split virus > age 3 19:21:12 ZINC ETCHER
--- OUTSIDE RECORDS SUMMARY | 2017-07-23 09:34 | XMS REPORT | Clinical Summary ---
Author Author Admin, IMTIAZ Organization [facility] Address Unknown Phone Unavailable Allergies, Adverse Reactions, [...] MD Routine general medical examination at a [facility] care facility PERIPHERAL NEUROPATHY 356.9 Active [...] TABS 1 BID for 5 days SULFAMETHOXAZOLE-TRIMETHOPRIM 19989291160 Active Catalino Irene MD Active AMOXICILLIN 500 MG ORAL CAPS tid AMOXICILLIN 72990919686 No Longer Active Catalino Irene MD Active BACTRIM DS TABS Take 1 po BID SULFAMETHOXAZOLE- TRIMETHOPRIM TABS 00883778427 No Longer Active Pam Gomez LPN Active MACROBID 100 MG CAP 1 cap by mouth twice daily NITROFURANTOIN MONOHYD MACRO 75539048752 No Longer Active Pam Gomez LPN Active DIFLUCAN 150 MG TAB 1 tablet by mouth daily FLUCONAZOLE 47514967207 Active Pam Gomez LPN Active CIPRO 250 MG TAB 1 tablet by mouth twice daily CIPROFLOXACIN HCL 31849629283 No Longer Active Pam Gomez LPN Active JANUVIA 100 MG ORAL TABS 1 daily SITAGLIPTIN PHOSPHATE 16273595627 Active Nadir Hector MD Active GLUCOTROL XL 5 MG [id number] one tablet daily GLIPIZIDE 06923115058 No Longer Active Nadir Hector MD Active BACTRIM DS 800-160 MG TABS 1 po BID x 7 days SULFAMETHOXAZOLE-TRIMETHOPRIM 84027329405 No Longer Active Jamal Burrell MD Active FOSAMAX 70 MG TABS 1 po qweek. Take 30min prior to first food/drink. Avoid lying down x 1 hour. ALENDRONATE SODIUM 85803931758 Active Nadir Hector MD Active AMOXICILLIN 500 MG CAPS 2 po BID x 10 days AMOXICILLIN 91943135908 No Longer Active Nadir Hector MD Active JANUVIA 100 MG TABS 1 tablet by mouth daily SITAGLIPTIN PHOSPHATE 63994316018 No Longer Active Nadir Hector MD Active JANUVIA 100 MG TABS Take 1 tab daily SITAGLIPTIN PHOSPHATE 42606038704 No Longer Active Sharon Nuñez Active MACROBID 100 MG CAP 1 cap by mouth twice daily NITROFURANTOIN MONOHYD MACRO 50039953000 No Longer Active Crystal Fernández APRN Active MACRODANTIN 100 MG CAPS 1 capsule by mouth twice daily for seven days NITROFURANTOIN MACROCRYSTAL 49183814827 No Longer Active Ro Yang RN Active BACTRIM DS 800-160 MG TABS one tablet twice a day for seven days SULFAMETHOXAZOLE-TRIMETHOPRIM 46014965282 No Longer Active HEMANTH Griffin Active BACTRIM DS 800-160 MG TABS TAKE ONE TABLET BY MOUTH TWICE DAILY FOR 7 DAYS SULFAMETHOXAZOLE-TRIMETHOPRIM 44143931266 No Longer Active Viviana Lal RN Active CIPRO 250 MG TABS TAKE ONE TABLET BY MOUTH TWICE DAILY FOR 5 DAYS CIPROFLOXACIN HCL 15194678742 No Longer Active Viviana Lal RN Active FLEXERIL 10 MG TABS 1/2 TO 1 TABLET Q12H NEEDED CYCLOBENZAPRINE HCL 16078549213 No Longer Active Viviana Lal RN Active AMLODIPINE BESYLATE 5 MG TABS 1 1/2 daily AMLODIPINE BESYLATE 09586763072 Active Nadir Hector MD Active ONGLYZA 5 MG TABS 1 QAM SAXAGLIPTIN HCL 84462488398 No Longer Active Nadir Hector MD Active AMLODIPINE BESYLATE 5 MG TABS 1 1/2 TABLET DAILY AMLODIPINE BESYLATE 56474401745 No Longer Active Nadir Hector MD Active LORTAB 5-500 MG TABS 1 BY MOUTH Q6H NEEDED HYDROCODONE- ACETAMINOPHEN 72504062516 No Longer Active Nadir Hector MD Active ACTOS 45 MG TABS 1 QD PIOGLITAZONE HCL 60302412637 No Longer Active Nadir Hector MD Active BACTRIM DS 800-160 MG TAB 1 tab by mouth twice daily TRIMETHOPRIM-SULFAMETHOXAZOLE 11259510568 No Longer Active Nadir Hector MD Active CALCIUM + D 600-200 MG-UNIT TABS 1 TABLET TWO TIMES A DAY CALCIUM CARBONATE-VITAMIN D 37385164303 Active Ro Yang RN Active METOPROLOL SUCCINATE 25 MG [id number] 1 QAM METOPROLOL SUCCINATE 10079086619 Active Nadir Hector MD Active AMARYL 4 MG TABS 1 QD GLIMEPIRIDE 07490417461 Active Nadir Hector MD Active LOVASTATIN 40 MG TABS 1 QD LOVASTATIN 55171963924 Active Nadir Hector MD Active GLUCOPHAGE 1000 MG TABS 1 TABLET TWO TIMES A DAY METFORMIN HCL 69466234892 Active Nadir Hector MD Active MAXZIDE-25 37.5-25 MG TABS 1 QD TRIAMTERENE-HCTZ 10774063833 Active Nadir Hector MD Active ACCUPRIL 40 MG TABS 1 QD QUINAPRIL HCL 81842990834 Active Nadir Hector MD Active BACTRIM DS 800-160 MG TAB 1 tab by mouth twice daily BACTRIM DS 800-160 MG TAB TRIMETHOPRIM-SULFAMETHOXAZOLE Inactive ACTOS 45 MG TABS 1 QD ACTOS 45 MG TABS 453584 PIOGLITAZONE HCL Inactive LORTAB 5-500 MG TABS 1 BY MOUTH Q6H NEEDED LORTAB 5-500 MG TABS HYDROCODONE-ACETAMINOPHEN Inactive AMLODIPINE BESYLATE 5 MG TABS 1 1/2 TABLET DAILY AMLODIPINE BESYLATE 5 MG TABS 691336 AMLODIPINE BESYLATE Inactive ONGLYZA 5 MG TABS 1 QAM ONGLYZA 5 MG TABS SAXAGLIPTIN HCL Inactive FLEXERIL 10 MG TABS 1/2 TO 1 TABLET Q12H NEEDED FLEXERIL 10 MG TABS CYCLOBENZAPRINE HCL Inactive CIPRO 250 MG TABS TAKE ONE TABLET BY MOUTH TWICE DAILY FOR 5 DAYS CIPRO 250 MG TABS 124453 CIPROFLOXACIN HCL Inactive BACTRIM DS 800-160 MG TABS TAKE ONE TABLET BY MOUTH TWICE DAILY FOR 7 DAYS BACTRIM DS 800-160 MG TABS SULFAMETHOXAZOLE-TRIMETHOPRIM Inactive BACTRIM DS 800-160 MG TABS one tablet twice a day for seven days BACTRIM DS 800-160 MG TABS SULFAMETHOXAZOLE-TRIMETHOPRIM Inactive MACROBID 100 MG CAP 1 cap by mouth twice daily MACROBID 100 MG CAP 477592 NITROFURANTOIN MONOHYD MACRO Inactive JANUVIA 100 MG TABS Take 1 tab daily JANUVIA 100 MG TABS SITAGLIPTIN PHOSPHATE Inactive GLUCOTROL XL 5 MG [id number] one tablet daily GLUCOTROL XL 5 MG [id number] GLIPIZIDE Inactive MACRODANTIN 100 MG CAPS 1 capsule by mouth twice daily for seven days MACRODANTIN 100 MG CAPS 852128 NITROFURANTOIN MACROCRYSTAL Inactive AMOXICILLIN 500 MG CAPS 2 po BID x 10 days AMOXICILLIN 500 MG CAPS 199985 AMOXICILLIN Inactive BACTRIM DS 800-160 MG TABS 1 po BID x 7 days BACTRIM DS 800-160 MG TABS SULFAMETHOXAZOLE-TRIMETHOPRIM Inactive CIPRO 250 MG TAB 1 tablet by mouth twice daily CIPRO 250 MG TAB 974615 CIPROFLOXACIN HCL Inactive MACROBID 100 MG CAP 1 cap by mouth twice daily MACROBID 100 MG CAP 032155 NITROFURANTOIN MONOHYD MACRO Inactive BACTRIM DS TABS Take 1 po BID BACTRIM DS TABS SULFAMETHOXAZOLE-TRIMETHOPRIM TABS Inactive AMOXICILLIN 500 MG ORAL CAPS tid AMOXICILLIN 500 MG ORAL CAPS 233573 AMOXICILLIN Inactive Advance Directives Directive Description Start Date PERMISSION TO SHARE Immunizations Vaccine Administration Date Value Standard Description pneumococcal immunization administered Pneumovax 23 [CVX33] pneumococcal polysaccharide vaccine, 23 valent Seasonal influenza vaccine, injectable, containing preservative, for > 3 years old (Afluria, FluLaval, Fluzone, Fluvirin, Fluarix, Agriflu(>=18 yo)) Fluzone (>3 yrs.) [[id number]] Influenza, seasonal, injectable Vital Signs Date Name [...] Panel - Chemistry sodium, serum 138 mmol/L 642-795 8839/07/02 potassium, serum 4.5 mmol/L 3.5-5.2 chloride, serum [...] 6.5 Encounters Code Encounter Date Provider Facility CPT-05810 Level 4 New Patient 14:59:23 CDT Catalino Irene MD [facility] CPT-11389 Level 3 Est. 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 Patient 14:21:01 PROTECTIVE SIGNAL REPAIRER HELPER Nadir Hector MD [facility] CPT-02755 Level 3 Est. Patient 16:41:34 CDT Nadir Hector MD [facility] CPT-30600 Level 4 Est. Patient 13:54:35 PROTECTIVE SIGNAL REPAIRER HELPER Nadir Hector MD [facility] CPT-52957 Level 3 Est. Patient 15:51:21 CDT Nadir Hector MD [facility] CPT-02511 Level 4 New Patient 15:58:26 CDT Catalino Irene MD [facility] CPT-20483 Level 4 Est. Patient 15:42:38 PROTECTIVE SIGNAL REPAIRER HELPER Nadir Hector MD [facility] Procedures Code Procedure Name Date Entry Date Standard Description CPT-59135 Urine Dip (Floor Use Only) 14:59:25 CDT CPT-02120 Bladder Scan 14:59:24 CDT CPT-86164 Cystoscopy 14:59:24 CDT CPT-93809 Abd single AP View 12:13:13 CDT CPT-000 Give Pneumovax 14:21:01 PROTECTIVE SIGNAL REPAIRER HELPER CPT-000 Give Appropriate Flu Vaccine 14:21:01 PROTECTIVE SIGNAL REPAIRER HELPER CPT-90226 Bone Density 08:41:23 PROTECTIVE SIGNAL REPAIRER HELPER CPT-000 Give Appropriate Flu Vaccine 13:54:35 PROTECTIVE SIGNAL REPAIRER HELPER CPT-000 Give Pneumovax 13:54:35 PROTECTIVE SIGNAL REPAIRER HELPER CPT-26640 Administration 2+ single or combination vaccines inc oral 14:01:24 PROTECTIVE SIGNAL REPAIRER HELPER CPT-16237 Administration single or combination vaccine inc oral 14 :01:24 PROTECTIVE SIGNAL REPAIRER HELPER CPT-12427 Influenza High Dose age 65+ 14:01:24 PROTECTIVE SIGNAL REPAIRER HELPER CPT-47276 Pneumovax 14:01:24 PROTECTIVE SIGNAL REPAIRER HELPER CPT-76225 Venipuncture Draw Fee 10:36:48 CDT CPT-000 Give Appropriate Flu Vaccine 15:20:11 PROTECTIVE SIGNAL REPAIRER HELPER CPT-64654 Administration single or combination vaccine inc oral 15 :50:33 PROTECTIVE SIGNAL REPAIRER HELPER CPT-71554 Influenza High Dose age 65+ 15:50:33 PROTECTIVE SIGNAL REPAIRER HELPER CPT-50165 LS spine AP and Lat 15:30:05 PROTECTIVE SIGNAL REPAIRER HELPER CPT-21425 Hip comp min 2V 15:30:05 PROTECTIVE SIGNAL REPAIRER HELPER CPT-16256 Postop F/U Visit 17:28:18 CDT CPT-OV Office Visit 15:04:38 CDT CPT-13439 Bladder Scan 15:58:26 CDT CPT-48316 Cystoscopy 15:58:26 CDT CPT-OV Office Visit 16:15:09 CDT CPT-000 Give Appropriate Flu Vaccine 16:33:10 PROTECTIVE SIGNAL REPAIRER HELPER CPT-34036 Administration single or combination vaccine inc oral 19 :21:12 PROTECTIVE SIGNAL REPAIRER HELPER CPT-12852 Influenza split virus > age 3 19:21:12 PROTECTIVE SIGNAL REPAIRER HELPER
--- OUTSIDE RECORDS SUMMARY | 2017-07-23 09:36 | XMS REPORT | Clinical Summary ---
Author Author Admin, IMTIAZ Organization [facility] Address Unknown Phone Unavailable Allergies, [...] MD Routine general medical examination at a [facility] care facility PERIPHERAL NEUROPATHY 356.9 Active [...] system, NEC HIP PAIN 719.45 Active Nadir Hectro MD Pain in joint involving pelvic region [...] TABS 1 BID for 5 days SULFAMETHOXAZOLE-TRIMETHOPRIM 29707744467 Active Catalino Irene MD Active AMOXICILLIN 500 MG ORAL CAPS tid AMOXICILLIN 82207839661 No Longer Active Catalino Irene MD Active BACTRIM DS TABS Take 1 po BID SULFAMETHOXAZOLE- TRIMETHOPRIM TABS 21288936927 No Longer Active Pam Gomez LPN Active MACROBID 100 MG CAP 1 cap by mouth twice daily NITROFURANTOIN MONOHYD MACRO 08475065809 No Longer Active Pam Gomez LPN Active DIFLUCAN 150 MG TAB 1 tablet by mouth daily FLUCONAZOLE 38093256657 Active Pam Gomez LPN Active CIPRO 250 MG TAB 1 tablet by mouth twice daily CIPROFLOXACIN HCL 90812392704 No Longer Active Pam Gomez LPN Active JANUVIA 100 MG ORAL TABS 1 daily SITAGLIPTIN PHOSPHATE 99313243974 Active Nadir Hector MD Active GLUCOTROL XL 5 MG [id number] one tablet daily GLIPIZIDE 54441700140 No Longer Active Nadir Hector MD Active BACTRIM DS 800-160 MG TABS 1 po BID x 7 days SULFAMETHOXAZOLE-TRIMETHOPRIM 84278023700 No Longer Active Jamal Burrell MD Active FOSAMAX 70 MG TABS 1 po qweek. Take 30min prior to first food/drink. Avoid lying down x 1 hour. ALENDRONATE SODIUM 48880958932 Active Nadir Hector MD Active AMOXICILLIN 500 MG CAPS 2 po BID x 10 days AMOXICILLIN 68923429565 No Longer Active Nadir Hector MD Active JANUVIA 100 MG TABS 1 tablet by mouth daily SITAGLIPTIN PHOSPHATE 84275317780 No Longer Active Nadir Hector MD Active JANUVIA 100 MG TABS Take 1 tab daily SITAGLIPTIN PHOSPHATE 67214630513 No Longer Active Sharon Nuñez Active MACROBID 100 MG CAP 1 cap by mouth twice daily NITROFURANTOIN MONOHYD MACRO 73036489963 No Longer Active Crystal Fernández APRN Active MACRODANTIN 100 MG CAPS 1 capsule by mouth twice daily for seven days NITROFURANTOIN MACROCRYSTAL 41078596720 No Longer Active Ro Yang RN Active BACTRIM DS 800-160 MG TABS one tablet twice a day for seven days SULFAMETHOXAZOLE-TRIMETHOPRIM 71826074497 No Longer Active HEMANTH Griffin Active BACTRIM DS 800-160 MG TABS TAKE ONE TABLET BY MOUTH TWICE DAILY FOR 7 DAYS SULFAMETHOXAZOLE-TRIMETHOPRIM 83741354397 No Longer Active Viviana Lal RN Active CIPRO 250 MG TABS TAKE ONE TABLET BY MOUTH TWICE DAILY FOR 5 DAYS CIPROFLOXACIN HCL 04179185188 No Longer Active Viviana Lal RN Active FLEXERIL 10 MG TABS 1/2 TO 1 TABLET Q12H NEEDED CYCLOBENZAPRINE HCL 48189660271 No Longer Active Viviana Lal RN Active AMLODIPINE BESYLATE 5 MG TABS 1 1/2 daily AMLODIPINE BESYLATE 20784672602 Active Nadir Hector MD Active ONGLYZA 5 MG TABS 1 QAM SAXAGLIPTIN HCL 67740766141 No Longer Active Nadir Hector MD Active AMLODIPINE BESYLATE 5 MG TABS 1 1/2 TABLET DAILY AMLODIPINE BESYLATE 06157475014 No Longer Active Nadir Hector MD Active LORTAB 5-500 MG TABS 1 BY MOUTH Q6H NEEDED HYDROCODONE- ACETAMINOPHEN 79794637524 No Longer Active Nadir Hector MD Active ACTOS 45 MG TABS 1 QD PIOGLITAZONE HCL 38138345778 No Longer Active Nadir Hector MD Active BACTRIM DS 800-160 MG TAB 1 tab by mouth twice daily TRIMETHOPRIM-SULFAMETHOXAZOLE 51548138935 No Longer Active Nadir Hector MD Active CALCIUM + D 600-200 MG-UNIT TABS 1 TABLET TWO TIMES A DAY CALCIUM CARBONATE-VITAMIN D 33293560379 Active Ro Yang RN Active METOPROLOL SUCCINATE 25 MG [id number] 1 QAM METOPROLOL SUCCINATE 55364681441 Active Nadir Hector MD Active AMARYL 4 MG TABS 1 QD GLIMEPIRIDE 05876820623 Active Nadir Hector MD Active LOVASTATIN 40 MG TABS 1 QD LOVASTATIN 27367553580 Active Nadir Hector MD Active GLUCOPHAGE 1000 MG TABS 1 TABLET TWO TIMES A DAY METFORMIN HCL 13090637168 Active Nadir Hector MD Active MAXZIDE-25 37.5-25 MG TABS 1 QD TRIAMTERENE-HCTZ 74208812848 Active Nadir Hector MD Active ACCUPRIL 40 MG TABS 1 QD QUINAPRIL HCL 23105084255 Active Nadir Hector MD Active BACTRIM DS 800-160 MG TAB 1 tab by mouth twice daily BACTRIM DS 800-160 MG TAB TRIMETHOPRIM-SULFAMETHOXAZOLE Inactive ACTOS 45 MG TABS 1 QD ACTOS 45 MG TABS 283306 PIOGLITAZONE HCL Inactive LORTAB 5-500 MG TABS 1 BY MOUTH Q6H NEEDED LORTAB 5-500 MG TABS HYDROCODONE-ACETAMINOPHEN Inactive AMLODIPINE BESYLATE 5 MG TABS 1 1/2 TABLET DAILY AMLODIPINE BESYLATE 5 MG TABS 764713 AMLODIPINE BESYLATE Inactive ONGLYZA 5 MG TABS 1 QAM ONGLYZA 5 MG TABS SAXAGLIPTIN HCL Inactive FLEXERIL 10 MG TABS 1/2 TO 1 TABLET Q12H NEEDED FLEXERIL 10 MG TABS CYCLOBENZAPRINE HCL Inactive CIPRO 250 MG TABS TAKE ONE TABLET BY MOUTH TWICE DAILY FOR 5 DAYS CIPRO 250 MG TABS 664079 CIPROFLOXACIN HCL Inactive BACTRIM DS 800-160 MG TABS TAKE ONE TABLET BY MOUTH TWICE DAILY FOR 7 DAYS BACTRIM DS 800-160 MG TABS SULFAMETHOXAZOLE-TRIMETHOPRIM Inactive BACTRIM DS 800-160 MG TABS one tablet twice a day for seven days BACTRIM DS 800-160 MG TABS SULFAMETHOXAZOLE-TRIMETHOPRIM Inactive MACROBID 100 MG CAP 1 cap by mouth twice daily MACROBID 100 MG CAP 864340 NITROFURANTOIN MONOHYD MACRO Inactive JANUVIA 100 MG TABS Take 1 tab daily JANUVIA 100 MG TABS SITAGLIPTIN PHOSPHATE Inactive GLUCOTROL XL 5 MG [id number] one tablet daily GLUCOTROL XL 5 MG [id number] GLIPIZIDE Inactive MACRODANTIN 100 MG CAPS 1 capsule by mouth twice daily for seven days MACRODANTIN 100 MG CAPS 917827 NITROFURANTOIN MACROCRYSTAL Inactive AMOXICILLIN 500 MG CAPS 2 po BID x 10 days AMOXICILLIN 500 MG CAPS 586815 AMOXICILLIN Inactive BACTRIM DS 800-160 MG TABS 1 po BID x 7 days BACTRIM DS 800-160 MG TABS SULFAMETHOXAZOLE-TRIMETHOPRIM Inactive CIPRO 250 MG TAB 1 tablet by mouth twice daily CIPRO 250 MG TAB 326838 CIPROFLOXACIN HCL Inactive MACROBID 100 MG CAP 1 cap by mouth twice daily MACROBID 100 MG CAP 474915 NITROFURANTOIN MONOHYD MACRO Inactive BACTRIM DS TABS Take 1 po BID BACTRIM DS TABS SULFAMETHOXAZOLE-TRIMETHOPRIM TABS Inactive AMOXICILLIN 500 MG ORAL CAPS tid AMOXICILLIN 500 MG ORAL CAPS 005950 AMOXICILLIN Inactive Advance Directives Directive Description Start Date PERMISSION TO SHARE Immunizations Vaccine Administration Date Value Standard Description pneumococcal immunization administered Pneumovax 23 [CVX33] pneumococcal polysaccharide vaccine, 23 valent Seasonal influenza vaccine, injectable, containing preservative, for > 3 years old (Afluria, FluLaval, Fluzone, Fluvirin, Fluarix, Agriflu(>=18 yo)) Fluzone (>3 yrs.) [ITF340] Influenza, seasonal, injectable Vital Signs Date Name [...] Panel - Chemistry sodium, serum 138 mmol/L 605-412 6426/07/02 potassium, serum 4.5 mmol/L 3.5-5.2 chloride, serum [...] 6.5 Encounters Code Encounter Date Provider Facility CPT-60936 Level 4 New Patient 14:59:23 CDT Catalino Irene MD [facility] CPT-36608 Level 3 Est. 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 Patient 14:21:01 WOODWORK SALVAGE INSPECTOR Nadir Hector MD [facility] CPT-63274 Level 3 Est. Patient 16:41:34 CDT Nadir Hector MD [facility] CPT-25447 Level 4 Est. Patient 13:54:35 WOODWORK SALVAGE INSPECTOR Nadir Hector MD [facility] CPT-24999 Level 3 Est. Patient 15:51:21 CDT Nadir Hector MD [facility] CPT-77672 Level 4 New Patient 15:58:26 CDT Catalino Irene MD [facility] CPT-30764 Level 4 Est. Patient 15:42:38 WOODWORK SALVAGE INSPECTOR Nadir Hector MD [facility] Procedures Code Procedure Name Date Entry Date Standard Description CPT-49432 Urine Dip (Floor Use Only) 14:21:22 CDT CPT-J0561 Bicillin LA 1,200,000 u (PCN G Benzathine) 13:16:19 CDT CPT-14339 Abx/Therapy Injection 13:16:19 CDT CPT-02915 Urine Dip (Floor Use Only) 14:59:25 CDT CPT-75339 Bladder Scan 14:59:24 CDT CPT-31445 Cystoscopy 14:59:24 CDT CPT-40473 Abd single AP View 12:13:13 CDT CPT-000 Give Pneumovax 14:21:01 WOODWORK SALVAGE INSPECTOR CPT-000 Give Appropriate Flu Vaccine 14:21:01 WOODWORK SALVAGE INSPECTOR CPT-95062 Bone Density 08:41:23 WOODWORK SALVAGE INSPECTOR CPT-000 Give Appropriate Flu Vaccine 13:54:35 WOODWORK SALVAGE INSPECTOR CPT-000 Give Pneumovax 13:54:35 WOODWORK SALVAGE INSPECTOR CPT-44826 Administration 2+ single or combination vaccines inc oral 14:01:24 WOODWORK SALVAGE INSPECTOR CPT-23272 Administration single or combination vaccine inc oral 14 :01:24 WOODWORK SALVAGE INSPECTOR CPT-63684 Influenza High Dose age 65+ 14:01:24 WOODWORK SALVAGE INSPECTOR CPT-12609 Pneumovax 14:01:24 WOODWORK SALVAGE INSPECTOR CPT-87148 Venipuncture Draw Fee 10:36:48 CDT CPT-000 Give Appropriate Flu Vaccine 15:20:11 WOODWORK SALVAGE INSPECTOR CPT-68098 Administration single or combination vaccine inc oral 15 :50:33 WOODWORK SALVAGE INSPECTOR CPT-10448 Influenza High Dose age 65+ 15:50:33 WOODWORK SALVAGE INSPECTOR CPT-87680 LS spine AP and Lat 15:30:05 WOODWORK SALVAGE INSPECTOR CPT-06073 Hip comp min 2V 15:30:05 WOODWORK SALVAGE INSPECTOR CPT-14793 Postop F/U Visit 17:28:18 CDT CPT-OV Office Visit 15:04:38 CDT CPT-65747 Bladder Scan 15:58:26 CDT CPT-56889 Cystoscopy 15:58:26 CDT CPT-OV Office Visit 16:15:09 CDT CPT-000 Give Appropriate Flu Vaccine 16:33:10 WOODWORK SALVAGE INSPECTOR CPT-27160 Administration single or combination vaccine inc oral 19 :21:12 WOODWORK SALVAGE INSPECTOR CPT-26820 Influenza split virus > age 3 19:21:12 WOODWORK SALVAGE INSPECTOR
--- OUTSIDE RECORDS SUMMARY | 2017-07-23 09:36 | XMS REPORT | Clinical Summary ---
Author Author Admin, IMTIAZ Organization [facility] Address Unknown Phone Unavailable Allergies, Adverse Reactions, [...] system, NEC HIP PAIN 719.45 Active Nadir Hetcor MD Pain in joint involving pelvic region and thigh OSTEOARTHRITIS 715.90 Active Nadir Hector MD Osteoarthrosis, unspecified whether generalized or localized, involving unspecified site BACK PAIN 724.5 Active Nadir Hector MD Backache, unspecified Sinusitis 461.9 Active Nadir Hector MD Acute sinusitis, unspecified Menopause, surgical 627.4 Active [facility] Symptomatic states associated with artificial menopause [...] TAB 1 tablet by mouth daily FLUCONAZOLE 80923684373 No Longer Active Nadir Hector MD Active BACTRIM DS 800-160 MG ORAL TABS 1 BID for 5 days SULFAMETHOXAZOLE-TRIMETHOPRIM 58230277605 No Longer Active Nadir Hector MD Active CIPRO 250 MG TAB 1 tablet by mouth twice daily CIPROFLOXACIN HCL 69280436335 No Longer Active Ro Meyer Active AMOXICILLIN 500 MG ORAL CAPS tid AMOXICILLIN 72522923120 No Longer Active Catalino Irene MD Active BACTRIM DS TABS Take 1 po BID SULFAMETHOXAZOLE- TRIMETHOPRIM TABS 97707648494 No Longer Active Pam Gomez LPN Active MACROBID 100 MG CAP 1 cap by mouth twice daily NITROFURANTOIN MONOHYD MACRO 87594038956 No Longer Active Pam Gomez LPN Active CIPRO 250 MG TAB 1 tablet by mouth twice daily CIPROFLOXACIN HCL 14237560637 No Longer Active Pam Gomez LPN Active JANUVIA 100 MG ORAL TABS 1 daily SITAGLIPTIN PHOSPHATE 20672877698 Active Nadir Hector MD Active GLUCOTROL XL 5 MG [id number] one tablet daily GLIPIZIDE 90581441267 No Longer Active Nadir Hector MD Active BACTRIM DS 800-160 MG TABS 1 po BID x 7 days SULFAMETHOXAZOLE-TRIMETHOPRIM 82492610038 No Longer Active Jamal Burrell MD Active FOSAMAX 70 MG TABS 1 po qweek. Take 30min prior to first food/drink. Avoid lying down x 1 hour. ALENDRONATE SODIUM 86042934142 Active Nadir Hector MD Active AMOXICILLIN 500 MG CAPS 2 po BID x 10 days AMOXICILLIN 94787885942 No Longer Active Nadir Hector MD Active JANUVIA 100 MG TABS 1 tablet by mouth daily SITAGLIPTIN PHOSPHATE 23989691536 No Longer Active Nadir Hector MD Active JANUVIA 100 MG TABS Take 1 tab daily SITAGLIPTIN PHOSPHATE 40515885078 No Longer Active Sharon Nuñez Active MACROBID 100 MG CAP 1 cap by mouth twice daily NITROFURANTOIN MONOHYD MACRO 65287625881 No Longer Active Crystal Fernández APRN Active MACRODANTIN 100 MG CAPS 1 capsule by mouth twice daily for seven days NITROFURANTOIN MACROCRYSTAL 18528372452 No Longer Active Ro Trey RN Active BACTRIM DS 800-160 MG TABS one tablet twice a day for seven days SULFAMETHOXAZOLE-TRIMETHOPRIM 34622945695 No Longer Active HEMANTH Griffin Active BACTRIM DS 800-160 MG TABS TAKE ONE TABLET BY MOUTH TWICE DAILY FOR 7 DAYS SULFAMETHOXAZOLE-TRIMETHOPRIM 03080712255 No Longer Active Viviana Lal RN Active CIPRO 250 MG TABS TAKE ONE TABLET BY MOUTH TWICE DAILY FOR 5 DAYS CIPROFLOXACIN HCL 63065591139 No Longer Active Viviana Lal RN Active FLEXERIL 10 MG TABS 1/2 TO 1 TABLET Q12H NEEDED CYCLOBENZAPRINE HCL 32682448559 No Longer Active Viviana Lal RN Active AMLODIPINE BESYLATE 5 MG TABS 1 1/2 daily AMLODIPINE BESYLATE 39558792661 Active Nadir Hector MD Active ONGLYZA 5 MG TABS 1 QAM SAXAGLIPTIN HCL 42674659501 No Longer Active Nadir Hector MD Active AMLODIPINE BESYLATE 5 MG TABS 1 1/2 TABLET DAILY AMLODIPINE BESYLATE 50985376454 No Longer Active Nadir Hector MD Active LORTAB 5-500 MG TABS 1 BY MOUTH Q6H NEEDED HYDROCODONE- ACETAMINOPHEN 68674737455 No Longer Active Nadir Hector MD Active ACTOS 45 MG TABS 1 QD PIOGLITAZONE HCL 02005299096 No Longer Active Nadir Hector MD Active BACTRIM DS 800-160 MG TAB 1 tab by mouth twice daily TRIMETHOPRIM-SULFAMETHOXAZOLE 29654180281 No Longer Active Nadir Hector MD Active CALCIUM + D 600-200 MG-UNIT TABS 1 TABLET TWO TIMES A DAY CALCIUM CARBONATE-VITAMIN D 82379466038 Active Ro Yang RN Active METOPROLOL SUCCINATE 25 MG [id number] 1 QAM METOPROLOL SUCCINATE 37155360560 Active Nadir Hector MD Active AMARYL 4 MG TABS 1 QD GLIMEPIRIDE 68722465371 Active Nadir Hector MD Active LOVASTATIN 40 MG TABS 1 QD LOVASTATIN 24279415662 Active Nadir Hector MD Active GLUCOPHAGE 1000 MG TABS 1 TABLET TWO TIMES A DAY METFORMIN HCL 31494567306 Active Nadir Hector MD Active MAXZIDE-25 37.5-25 MG TABS 1 QD TRIAMTERENE-HCTZ 46247192359 Active Nadir Hector MD Active ACCUPRIL 40 MG TABS 1 QD QUINAPRIL HCL 24182340671 Active Nadir Hector MD Active BACTRIM DS 800-160 MG TAB 1 tab by mouth twice daily BACTRIM DS 800-160 MG TAB TRIMETHOPRIM-SULFAMETHOXAZOLE Inactive ACTOS 45 MG TABS 1 QD ACTOS 45 MG TABS 686234 PIOGLITAZONE HCL Inactive LORTAB 5-500 MG TABS 1 BY MOUTH Q6H NEEDED LORTAB 5-500 MG TABS HYDROCODONE-ACETAMINOPHEN Inactive AMLODIPINE BESYLATE 5 MG TABS 1 1/2 TABLET DAILY AMLODIPINE BESYLATE 5 MG TABS 881259 AMLODIPINE BESYLATE Inactive ONGLYZA 5 MG TABS 1 QAM ONGLYZA 5 MG TABS SAXAGLIPTIN HCL Inactive FLEXERIL 10 MG TABS 1/2 TO 1 TABLET Q12H NEEDED FLEXERIL 10 MG TABS CYCLOBENZAPRINE HCL Inactive CIPRO 250 MG TABS TAKE ONE TABLET BY MOUTH TWICE DAILY FOR 5 DAYS CIPRO 250 MG TABS 409485 CIPROFLOXACIN HCL Inactive BACTRIM DS 800-160 MG TABS TAKE ONE TABLET BY MOUTH TWICE DAILY FOR 7 DAYS BACTRIM DS 800-160 MG TABS SULFAMETHOXAZOLE-TRIMETHOPRIM Inactive BACTRIM DS 800-160 MG TABS one tablet twice a day for seven days BACTRIM DS 800-160 MG TABS SULFAMETHOXAZOLE-TRIMETHOPRIM Inactive MACROBID 100 MG CAP 1 cap by mouth twice daily MACROBID 100 MG CAP 5531528 NITROFURANTOIN MONOHYD MACRO Inactive JANUVIA 100 MG TABS Take 1 tab daily JANUVIA 100 MG TABS SITAGLIPTIN PHOSPHATE Inactive GLUCOTROL XL 5 MG [id number] one tablet daily GLUCOTROL XL 5 MG [id number] GLIPIZIDE Inactive BACTRIM DS 800-160 MG ORAL TABS 1 BID for 5 days BACTRIM DS 800-160 MG ORAL TABS SULFAMETHOXAZOLE-TRIMETHOPRIM Inactive DIFLUCAN 150 MG TAB 1 tablet by mouth daily DIFLUCAN 150 MG TAB 117048 FLUCONAZOLE Inactive MACRODANTIN 100 MG CAPS 1 capsule by mouth twice daily for seven days MACRODANTIN 100 MG CAPS 9125754 NITROFURANTOIN MACROCRYSTAL Inactive AMOXICILLIN 500 MG CAPS 2 po BID x 10 days AMOXICILLIN 500 MG CAPS 583760 AMOXICILLIN Inactive BACTRIM DS 800-160 MG TABS 1 po BID x 7 days BACTRIM DS 800-160 MG TABS SULFAMETHOXAZOLE-TRIMETHOPRIM Inactive CIPRO 250 MG TAB 1 tablet by mouth twice daily CIPRO 250 MG TAB 029566 CIPROFLOXACIN HCL Inactive MACROBID 100 MG CAP 1 cap by mouth twice daily MACROBID 100 MG CAP 8433395 NITROFURANTOIN MONOHYD MACRO Inactive BACTRIM DS TABS Take 1 po BID BACTRIM DS TABS SULFAMETHOXAZOLE-TRIMETHOPRIM TABS Inactive AMOXICILLIN 500 MG ORAL CAPS tid AMOXICILLIN 500 MG ORAL CAPS 640060 AMOXICILLIN Inactive CIPRO 250 MG TAB 1 tablet by mouth twice daily CIPRO 250 MG TAB 755034 CIPROFLOXACIN HCL Inactive Advance Directives Directive Description Start Date PERMISSION TO SHARE Immunizations Vaccine Administration Date Value Standard Description pneumococcal immunization administered Pneumovax 23 [CVX33] pneumococcal polysaccharide vaccine, 23 valent Seasonal influenza vaccine, injectable, containing preservative, for > 3 years old (Afluria, FluLaval, Fluzone, Fluvirin, Fluarix, Agriflu(>=18 yo)) Fluzone (>3 yrs.) [YED883] Influenza, seasonal, injectable Vital Signs Date Name [...] Panel - Chemistry sodium, serum 138 mmol/L 354-387 0903/07/02 urea nitrogen, blood 18 mg/dL 7-18 creatinine, [...] HGBA1C - Chemistry cholesterol, serum 147 mg/dL 340-357 4905/08/18 triglyceride, serum, fasting 242 mg/dL 30-200 HDL cholesterol, serum 36 mg/dL 32-96 LDL cholesterol, serum 63 mg/dL 0-130 sodium, serum 137 mmol/L 988-787 2837/08/18 potassium, serum 4.7 mmol/L 3.5-5.2 chloride, serum [...] W/MICRO, AUTO - Chemistry RBC, urine, dipstick 2+ Negative protein, total urine random 3+ mg/dL Negative RBC, urine, dipstick 3+ Negative protein, total urine random 2+ mg/dL Negative protein, total urine random 1+ mg/dL Negative RBC, urine, dipstick 1+ Negative protein, total urine random 2+ mg/dL Negative RBC, urine, dipstick 1+ Negative RBC, urine, dipstick 3+ Negative RBC, urine, dipstick 3+ Negative protein, total urine random 2+ mg/dL Negative protein, total urine random Trace mg/dL Negative Lab Report: UADIP W/MICRO, AUTO - Urinalysis glucose, urine, semiquantitative Negative Negative glucose, urine, semiquantitative [...] strip Trace Negative bilirubin, urine Negative Negative urobilinogen, urine, semiquantitative (dipstick) 0.2 Normal leukocyte esterase, urine, by dipstick Trace Negative nitrite, urine, semiquantitative Negative Negative appearance, urine Clear Clear specific gravity, urine 1.025 1.000-1.030 pH, urine, semiquantitative 6.0 5.0-8.5 glucose, urine, semiquantitative Negative Negative ketones, urine, by test strip Negative Negative bilirubin, urine Negative Negative urine color Yellow Colorless;Lightyellow;Straw;Yellow ketones, urine, by test strip Negative Negative bilirubin, urine Negative Negative pH, urine, semiquantitative 6.0 5.0-8.5 specific gravity, urine 1.025 1.000-1.030 appearance, urine SlCloudy Clear urine color Yellow Colorless;Lightyellow;Straw;Yellow glucose, urine, semiquantitative Negative Negative glucose, urine, semiquantitative Negative Negative appearance, urine SlCloudy Clear specific gravity, urine 1.020 1.000-1.030 pH, urine, semiquantitative 6.0 5.0-8.5 urobilinogen, urine, semiquantitative (dipstick) 0.2 Normal leukocyte esterase, urine, by dipstick Trace Negative nitrite, urine, semiquantitative Negative Negative appearance, urine SlCloudy Clear specific gravity, urine 1.025 1.000-1.030 pH, urine, semiquantitative 5.5 5.0-8.5 urine color Yellow Colorless;Lightyellow;Straw;Yellow ketones, urine, by test strip Negative Negative bilirubin, urine Negative Negative urobilinogen, urine, semiquantitative (dipstick) 0.2 Normal leukocyte esterase, urine, by dipstick 1+ Negative nitrite, urine, semiquantitative Negative Negative urine [...] 0.2 Encounters Code Encounter Date Provider Facility CPT-34443 Level 4 Est. Patient 09:54:20 CDT Nadir Hector MD [facility] CPT-02709 Level 2 Est. Patient 18:56:33 CDT Catalino Irene MD [facility] CPT-78706 Level 4 New Patient 14:59:23 CDT Catalino Irene MD [facility] CPT-13094 Level 3 Est. Patient 16:43:04 CHIEF MEDICAL TECHNOLOGIST Nadir Hector MD [facility] CPT-16023 Level 4 Est. Patient 14:21:01 CHIEF MEDICAL TECHNOLOGIST Nadir Hector MD [facility] CPT-48822 Level 3 Est. Patient 16:41:34 CDT Nadir Hector MD [facility] CPT-89176 Level 4 Est. Patient 13:54:35 CHIEF MEDICAL TECHNOLOGIST Nadir Hector MD [facility] CPT-47145 Level 3 Est. Patient 15:51:21 CDT Nadir Hector MD [facility] CPT-34295 Level 4 New Patient 15:58:26 CDT Catalino Irene MD [facility] CPT-32631 Level 4 Est. Patient 15:42:38 CHIEF MEDICAL TECHNOLOGIST Nadir Hector MD [facility] Procedures Code Procedure Name Date Entry Date Standard Description CPT-25478 Urine Dip (Floor Use Only) 18:56:34 CDT CPT-25183 Urine Dip (Floor Use Only) 14:21:22 CDT CPT-J0561 Bicillin LA 1,200,000 u (PCN G Benzathine) 13:16:19 CDT CPT-07959 Abx/Therapy Injection 13:16:19 CDT CPT-84127 Urine Dip (Floor Use Only) 14:59:25 CDT CPT-83896 Bladder Scan 14:59:24 CDT CPT-13397 Cystoscopy 14:59:24 CDT CPT-98533 Abd single AP View 12:13:13 CDT CPT-000 Give Pneumovax 14:21:01 CHIEF MEDICAL TECHNOLOGIST CPT-000 Give Appropriate Flu Vaccine 14:21:01 CHIEF MEDICAL TECHNOLOGIST CPT-59537 Bone Density 08:41:23 CHIEF MEDICAL TECHNOLOGIST CPT-000 Give Appropriate Flu Vaccine 13:54:35 CHIEF MEDICAL TECHNOLOGIST CPT-000 Give Pneumovax 13:54:35 CHIEF MEDICAL TECHNOLOGIST CPT-24708 Administration 2+ single or combination vaccines inc oral 14:01:24 CHIEF MEDICAL TECHNOLOGIST CPT-26230 Administration single or combination vaccine inc oral 14 :01:24 CHIEF MEDICAL TECHNOLOGIST CPT-01813 Influenza High Dose age 65+ 14:01:24 CHIEF MEDICAL TECHNOLOGIST CPT-24690 Pneumovax 14:01:24 CHIEF MEDICAL TECHNOLOGIST CPT-01326 Venipuncture Draw Fee 10:36:48 CDT CPT-000 Give Appropriate Flu Vaccine 15:20:11 CHIEF MEDICAL TECHNOLOGIST CPT-97749 Administration single or combination vaccine inc oral 15 :50:33 CHIEF MEDICAL TECHNOLOGIST CPT-50869 Influenza High Dose age 65+ 15:50:33 CHIEF MEDICAL TECHNOLOGIST CPT-91144 LS spine AP and Lat 15:30:05 CHIEF MEDICAL TECHNOLOGIST CPT-26560 Hip comp min 2V 15:30:05 CHIEF MEDICAL TECHNOLOGIST CPT-50126 Postop F/U Visit 17:28:18 CDT CPT-OV Office Visit 15:04:38 CDT CPT-97782 Bladder Scan 15:58:26 CDT CPT-33953 Cystoscopy 15:58:26 CDT CPT-OV Office Visit 16:15:09 CDT CPT-000 Give Appropriate Flu Vaccine 16:33:10 CHIEF MEDICAL TECHNOLOGIST CPT-37885 Administration single or combination vaccine inc oral 19 :21:12 CHIEF MEDICAL TECHNOLOGIST CPT-02386 Influenza split virus > age 3 19:21:12 CHIEF MEDICAL TECHNOLOGIST
--- OUTSIDE RECORDS SUMMARY | 2017-07-23 09:37 | XMS REPORT | Clinical Summary ---
Author Author Admin, IMTIAZ Organization [facility] Address Unknown Phone Unavailable Allergies, Adverse [...] Routine general medical examination at a the [facility] care facility PERIPHERAL NEUROPATHY 356.9 Active Ndair Hector MD Unspecified idiopathic peripheral neuropathy Right [...] TABS 1 BID for 5 days SULFAMETHOXAZOLE-TRIMETHOPRIM 38451884411 Active Catalino Irene MD Active AMOXICILLIN 500 MG ORAL CAPS tid AMOXICILLIN 01484441181 No Longer Active Catalino Irene MD Active BACTRIM DS TABS Take 1 po BID SULFAMETHOXAZOLE- TRIMETHOPRIM TABS 22546246484 No Longer Active Pam Gomez LPN Active MACROBID 100 MG CAP 1 cap by mouth twice daily NITROFURANTOIN MONOHYD MACRO 09163228647 No Longer Active Pam Gomez LPN Active DIFLUCAN 150 MG TAB 1 tablet by mouth daily FLUCONAZOLE 02549651647 Active Pam Gomez LPN Active CIPRO 250 MG TAB 1 tablet by mouth twice daily CIPROFLOXACIN HCL 99367101089 No Longer Active Pam Gomez LPN Active JANUVIA 100 MG ORAL TABS 1 daily SITAGLIPTIN PHOSPHATE 10664692000 Active Nadir Hector MD Active GLUCOTROL XL 5 MG [id number] one tablet daily GLIPIZIDE 28722854770 No Longer Active Nadir Hector MD Active BACTRIM DS 800-160 MG TABS 1 po BID x 7 days SULFAMETHOXAZOLE-TRIMETHOPRIM 52778885784 No Longer Active Jamal Burrell MD Active FOSAMAX 70 MG TABS 1 po qweek. Take 30min prior to first food/drink. Avoid lying down x 1 hour. ALENDRONATE SODIUM 96717842496 Active Nadir Hector MD Active AMOXICILLIN 500 MG CAPS 2 po BID x 10 days AMOXICILLIN 07707953758 No Longer Active Nadir Hector MD Active JANUVIA 100 MG TABS 1 tablet by mouth daily SITAGLIPTIN PHOSPHATE 16692309754 No Longer Active Nadir Hector MD Active JANUVIA 100 MG TABS Take 1 tab daily SITAGLIPTIN PHOSPHATE 29153608959 No Longer Active Sharon Nuñez Active MACROBID 100 MG CAP 1 cap by mouth twice daily NITROFURANTOIN MONOHYD MACRO 50255460957 No Longer Active Crystal Fernández APRN Active MACRODANTIN 100 MG CAPS 1 capsule by mouth twice daily for seven days NITROFURANTOIN MACROCRYSTAL 84953169211 No Longer Active Ro Yang RN Active BACTRIM DS 800-160 MG TABS one tablet twice a day for seven days SULFAMETHOXAZOLE-TRIMETHOPRIM 87660415438 No Longer Active HEMANTH Griffin Active BACTRIM DS 800-160 MG TABS TAKE ONE TABLET BY MOUTH TWICE DAILY FOR 7 DAYS SULFAMETHOXAZOLE-TRIMETHOPRIM 79685221175 No Longer Active Viviana Lal RN Active CIPRO 250 MG TABS TAKE ONE TABLET BY MOUTH TWICE DAILY FOR 5 DAYS CIPROFLOXACIN HCL 63370105430 No Longer Active Viviana Lal RN Active FLEXERIL 10 MG TABS 1/2 TO 1 TABLET Q12H NEEDED CYCLOBENZAPRINE HCL 17284922564 No Longer Active Viviana Lal RN Active AMLODIPINE BESYLATE 5 MG TABS 1 1/2 daily AMLODIPINE BESYLATE 96225756068 Active Nadir Hector MD Active ONGLYZA 5 MG TABS 1 QAM SAXAGLIPTIN HCL 83591934667 No Longer Active Nadir Hector MD Active AMLODIPINE BESYLATE 5 MG TABS 1 1/2 TABLET DAILY AMLODIPINE BESYLATE 10257835937 No Longer Active Nadir Hector MD Active LORTAB 5-500 MG TABS 1 BY MOUTH Q6H NEEDED HYDROCODONE- ACETAMINOPHEN 37105615250 No Longer Active Nadir Hector MD Active ACTOS 45 MG TABS 1 QD PIOGLITAZONE HCL 08971961721 No Longer Active Nadir Hector MD Active BACTRIM DS 800-160 MG TAB 1 tab by mouth twice daily TRIMETHOPRIM-SULFAMETHOXAZOLE 58059999954 No Longer Active Nadir Hector MD Active CALCIUM + D 600-200 MG-UNIT TABS 1 TABLET TWO TIMES A DAY CALCIUM CARBONATE-VITAMIN D 75643138579 Active Ro Yang RN Active METOPROLOL SUCCINATE 25 MG [id number] 1 QAM METOPROLOL SUCCINATE 03351243327 Active Nadir Hector MD Active AMARYL 4 MG TABS 1 QD GLIMEPIRIDE 65155470235 Active Nadir Hector MD Active LOVASTATIN 40 MG TABS 1 QD LOVASTATIN 86790731634 Active Nadir Hector MD Active GLUCOPHAGE 1000 MG TABS 1 TABLET TWO TIMES A DAY METFORMIN HCL 52977192330 Active Nadir Hector MD Active MAXZIDE-25 37.5-25 MG TABS 1 QD TRIAMTERENE-HCTZ 24516021178 Active Nadir Hector MD Active ACCUPRIL 40 MG TABS 1 QD QUINAPRIL HCL 31398904813 Active Nadir Hector MD Active BACTRIM DS 800-160 MG TAB 1 tab by mouth twice daily BACTRIM DS 800-160 MG TAB TRIMETHOPRIM-SULFAMETHOXAZOLE Inactive ACTOS 45 MG TABS 1 QD ACTOS 45 MG TABS 670388 PIOGLITAZONE HCL Inactive LORTAB 5-500 MG TABS 1 BY MOUTH Q6H NEEDED LORTAB 5-500 MG TABS HYDROCODONE-ACETAMINOPHEN Inactive AMLODIPINE BESYLATE 5 MG TABS 1 1/2 TABLET DAILY AMLODIPINE BESYLATE 5 MG TABS 348294 AMLODIPINE BESYLATE Inactive ONGLYZA 5 MG TABS 1 QAM ONGLYZA 5 MG TABS SAXAGLIPTIN HCL Inactive FLEXERIL 10 MG TABS 1/2 TO 1 TABLET Q12H NEEDED FLEXERIL 10 MG TABS CYCLOBENZAPRINE HCL Inactive CIPRO 250 MG TABS TAKE ONE TABLET BY MOUTH TWICE DAILY FOR 5 DAYS CIPRO 250 MG TABS 181856 CIPROFLOXACIN HCL Inactive BACTRIM DS 800-160 MG TABS TAKE ONE TABLET BY MOUTH TWICE DAILY FOR 7 DAYS BACTRIM DS 800-160 MG TABS SULFAMETHOXAZOLE-TRIMETHOPRIM Inactive BACTRIM DS 800-160 MG TABS one tablet twice a day for seven days BACTRIM DS 800-160 MG TABS SULFAMETHOXAZOLE-TRIMETHOPRIM Inactive MACROBID 100 MG CAP 1 cap by mouth twice daily MACROBID 100 MG CAP 964128 NITROFURANTOIN MONOHYD MACRO Inactive JANUVIA 100 MG TABS Take 1 tab daily JANUVIA 100 MG TABS SITAGLIPTIN PHOSPHATE Inactive GLUCOTROL XL 5 MG [id number] one tablet daily GLUCOTROL XL 5 MG [id number] GLIPIZIDE Inactive MACRODANTIN 100 MG CAPS 1 capsule by mouth twice daily for seven days MACRODANTIN 100 MG CAPS 339691 NITROFURANTOIN MACROCRYSTAL Inactive AMOXICILLIN 500 MG CAPS 2 po BID x 10 days AMOXICILLIN 500 MG CAPS 393916 AMOXICILLIN Inactive BACTRIM DS 800-160 MG TABS 1 po BID x 7 days BACTRIM DS 800-160 MG TABS SULFAMETHOXAZOLE-TRIMETHOPRIM Inactive CIPRO 250 MG TAB 1 tablet by mouth twice daily CIPRO 250 MG TAB 834942 CIPROFLOXACIN HCL Inactive MACROBID 100 MG CAP 1 cap by mouth twice daily MACROBID 100 MG CAP 569219 NITROFURANTOIN MONOHYD MACRO Inactive BACTRIM DS TABS Take 1 po BID BACTRIM DS TABS SULFAMETHOXAZOLE-TRIMETHOPRIM TABS Inactive AMOXICILLIN 500 MG ORAL CAPS tid AMOXICILLIN 500 MG ORAL CAPS 168874 AMOXICILLIN Inactive Advance Directives Directive Description Start Date PERMISSION TO SHARE Immunizations Vaccine Administration Date Value Standard Description pneumococcal immunization administered Pneumovax 23 [CVX33] pneumococcal polysaccharide vaccine, 23 valent Seasonal influenza vaccine, injectable, containing preservative, for > 3 years old (Afluria, FluLaval, Fluzone, Fluvirin, Fluarix, Agriflu(>=18 yo)) Fluzone (>3 yrs.) [COF184] Influenza, seasonal, injectable Vital Signs Date Name [...] Panel - Chemistry sodium, serum 138 mmol/L 651-114 3329/07/02 potassium, serum 4.5 mmol/L 3.5-5.2 chloride, serum [...] 6.5 Encounters Code Encounter Date Provider Facility CPT-32134 Level 4 New Patient 14:59:23 CDT Catalino Irene MD [facility] CPT-48351 Level 3 Est. Patient 16:43:04 WRAPAROUND FACILITATOR Nadir Hector MD [facility] CPT-96532 Level 4 Est. Patient 14:21:01 WRAPAROUND FACILITATOR Nadir Hector MD [facility] CPT-54810 Level 3 Est. Patient 16:41:34 CDT Nadir Hector MD [facility] CPT-20375 Level 4 Est. Patient 13:54:35 WRAPAROUND FACILITATOR Nadir Hector MD [facility] CPT-88254 Level 3 Est. Patient 15:51:21 CDT Nadir Hector MD [facility] CPT-71356 Level 4 New Patient 15:58:26 CDT Catalino Irene MD [facility] CPT-96665 Level 4 Est. Patient 15:42:38 WRAPAROUND FACILITATOR Naidr Hector MD [facility] Procedures Code Procedure Name Date Entry Date Standard Description CPT-10208 Urine Dip (Floor Use Only) 14:59:25 CDT CPT-84602 Bladder Scan 14:59:24 CDT CPT-70287 Cystoscopy 14:59:24 CDT CPT-96291 Abd single AP View 12:13:13 CDT CPT-000 Give Pneumovax 14:21:01 WRAPAROUND FACILITATOR CPT-000 Give Appropriate Flu Vaccine 14:21:01 WRAPAROUND FACILITATOR CPT-10338 Bone Density 08:41:23 WRAPAROUND FACILITATOR CPT-000 Give Appropriate Flu Vaccine 13:54:35 WRAPAROUND FACILITATOR CPT-000 Give Pneumovax 13:54:35 WRAPAROUND FACILITATOR CPT-02351 Administration 2+ single or combination vaccines inc oral 14:01:24 WRAPAROUND FACILITATOR CPT-10332 Administration single or combination vaccine inc oral 14 :01:24 WRAPAROUND FACILITATOR CPT-58211 Influenza High Dose age 65+ 14:01:24 WRAPAROUND FACILITATOR CPT-97825 Pneumovax 14:01:24 WRAPAROUND FACILITATOR CPT-34377 Venipuncture Draw Fee 10:36:48 CDT CPT-000 Give Appropriate Flu Vaccine 15:20:11 WRAPAROUND FACILITATOR CPT-06582 Administration single or combination vaccine inc oral 15 :50:33 WRAPAROUND FACILITATOR CPT-26373 Influenza High Dose age 65+ 15:50:33 WRAPAROUND FACILITATOR CPT-61914 LS spine AP and Lat 15:30:05 WRAPAROUND FACILITATOR CPT-95373 Hip comp min 2V 15:30:05 WRAPAROUND FACILITATOR CPT-76861 Postop F/U Visit 17:28:18 CDT CPT-OV Office Visit 15:04:38 CDT CPT-64013 Bladder Scan 15:58:26 CDT CPT-21853 Cystoscopy 15:58:26 CDT CPT-OV Office Visit 16:15:09 CDT CPT-000 Give Appropriate Flu Vaccine 16:33:10 WRAPAROUND FACILITATOR CPT-19242 Administration single or combination vaccine inc oral 19 :21:12 WRAPAROUND FACILITATOR CPT-50842 Influenza split virus > age 3 19:21:12 WRAPAROUND FACILITATOR
--- OUTSIDE RECORDS SUMMARY | 2017-07-23 09:38 | XMS REPORT | Clinical Summary ---
Author Author Admin, IMTIAZ Organization [facility] Address Unknown Phone Unavailable Allergies, Adverse Reactions, [...] Acute sinusitis, unspecified Menopause, surgical 627.4 Active [facility] Symptomatic states associated with artificial menopause [...] TAB 1 tablet by mouth daily FLUCONAZOLE 18663199856 No Longer Active Nadir Hector MD Active BACTRIM DS 800-160 MG ORAL TABS 1 BID for 5 days SULFAMETHOXAZOLE-TRIMETHOPRIM 65280197726 No Longer Active Nadir Hector MD Active CIPRO 250 MG TAB 1 tablet by mouth twice daily CIPROFLOXACIN HCL 93778873123 No Longer Active Ro Meyer Active AMOXICILLIN 500 MG ORAL CAPS tid AMOXICILLIN 89268976761 No Longer Active Catalino Irene MD Active BACTRIM DS TABS Take 1 po BID SULFAMETHOXAZOLE- TRIMETHOPRIM TABS 53947300152 No Longer Active Pam Gomez LPN Active MACROBID 100 MG CAP 1 cap by mouth twice daily NITROFURANTOIN MONOHYD MACRO 73632616873 No Longer Active Pam Gomez LPN Active CIPRO 250 MG TAB 1 tablet by mouth twice daily CIPROFLOXACIN HCL 59210012913 No Longer Active Pam Gomez LPN Active JANUVIA 100 MG ORAL TABS 1 daily SITAGLIPTIN PHOSPHATE 84328501976 Active Nadir Hector MD Active GLUCOTROL XL 5 MG [id number] one tablet daily GLIPIZIDE 71938267036 No Longer Active Nadir Hector MD Active BACTRIM DS 800-160 MG TABS 1 po BID x 7 days SULFAMETHOXAZOLE-TRIMETHOPRIM 36129589419 No Longer Active Jamal Burrell MD Active FOSAMAX 70 MG TABS 1 po qweek. Take 30min prior to first food/drink. Avoid lying down x 1 hour. ALENDRONATE SODIUM 10931153099 Active Nadir Hector MD Active AMOXICILLIN 500 MG CAPS 2 po BID x 10 days AMOXICILLIN 18635829583 No Longer Active Nadir Hector MD Active JANUVIA 100 MG TABS 1 tablet by mouth daily SITAGLIPTIN PHOSPHATE 17008286081 No Longer Active Ndair Hector MD Active JANUVIA 100 MG TABS Take 1 tab daily SITAGLIPTIN PHOSPHATE 07377980021 No Longer Active Sharon Nuñez Active MACROBID 100 MG CAP 1 cap by mouth twice daily NITROFURANTOIN MONOHYD MACRO 94386463947 No Longer Active Crystal Fernández APRN Active MACRODANTIN 100 MG CAPS 1 capsule by mouth twice daily for seven days NITROFURANTOIN MACROCRYSTAL 01804229035 No Longer Active Ro Trey RN Active BACTRIM DS 800-160 MG TABS one tablet twice a day for seven days SULFAMETHOXAZOLE-TRIMETHOPRIM 59550788293 No Longer Active HEMANTH Griffin Active BACTRIM DS 800-160 MG TABS TAKE ONE TABLET BY MOUTH TWICE DAILY FOR 7 DAYS SULFAMETHOXAZOLE-TRIMETHOPRIM 38173825282 No Longer Active Viviana Lal RN Active CIPRO 250 MG TABS TAKE ONE TABLET BY MOUTH TWICE DAILY FOR 5 DAYS CIPROFLOXACIN HCL 00819949336 No Longer Active Viviana Lal RN Active FLEXERIL 10 MG TABS 1/2 TO 1 TABLET Q12H NEEDED CYCLOBENZAPRINE HCL 50570461306 No Longer Active Viviana Lal RN Active AMLODIPINE BESYLATE 5 MG TABS 1 1/2 daily AMLODIPINE BESYLATE 81281144612 Active Nadir Hector MD Active ONGLYZA 5 MG TABS 1 QAM SAXAGLIPTIN HCL 53504985171 No Longer Active Nadir Hector MD Active AMLODIPINE BESYLATE 5 MG TABS 1 1/2 TABLET DAILY AMLODIPINE BESYLATE 10683130608 No Longer Active Nadir Hector MD Active LORTAB 5-500 MG TABS 1 BY MOUTH Q6H NEEDED HYDROCODONE- ACETAMINOPHEN 91379558131 No Longer Active Nadir Hector MD Active ACTOS 45 MG TABS 1 QD PIOGLITAZONE HCL 16588017744 No Longer Active Nadir Hector MD Active BACTRIM DS 800-160 MG TAB 1 tab by mouth twice daily TRIMETHOPRIM-SULFAMETHOXAZOLE 30872946934 No Longer Active Nadir Hector MD Active CALCIUM + D 600-200 MG-UNIT TABS 1 TABLET TWO TIMES A DAY CALCIUM CARBONATE-VITAMIN D 02794420911 Active Ro Yang RN Active METOPROLOL SUCCINATE 25 MG [id number] 1 QAM METOPROLOL SUCCINATE 19896034055 Active Nadir Hector MD Active AMARYL 4 MG TABS 1 QD GLIMEPIRIDE 92668517878 Active Nadir Hector MD Active LOVASTATIN 40 MG TABS 1 QD LOVASTATIN 43981546052 Active Nadir Hector MD Active GLUCOPHAGE 1000 MG TABS 1 TABLET TWO TIMES A DAY METFORMIN HCL 90976749458 Active Nadir Hector MD Active MAXZIDE-25 37.5-25 MG TABS 1 QD TRIAMTERENE-HCTZ 62346527952 Active Nadir Hector MD Active ACCUPRIL 40 MG TABS 1 QD QUINAPRIL HCL 90543823430 Active Nadir Hector MD Active BACTRIM DS 800-160 MG TAB 1 tab by mouth twice daily BACTRIM DS 800-160 MG TAB TRIMETHOPRIM-SULFAMETHOXAZOLE Inactive ACTOS 45 MG TABS 1 QD ACTOS 45 MG TABS 450401 PIOGLITAZONE HCL Inactive LORTAB 5-500 MG TABS 1 BY MOUTH Q6H NEEDED LORTAB 5-500 MG TABS HYDROCODONE-ACETAMINOPHEN Inactive AMLODIPINE BESYLATE 5 MG TABS 1 1/2 TABLET DAILY AMLODIPINE BESYLATE 5 MG TABS 732781 AMLODIPINE BESYLATE Inactive ONGLYZA 5 MG TABS 1 QAM ONGLYZA 5 MG TABS SAXAGLIPTIN HCL Inactive FLEXERIL 10 MG TABS 1/2 TO 1 TABLET Q12H NEEDED FLEXERIL 10 MG TABS CYCLOBENZAPRINE HCL Inactive CIPRO 250 MG TABS TAKE ONE TABLET BY MOUTH TWICE DAILY FOR 5 DAYS CIPRO 250 MG TABS 417169 CIPROFLOXACIN HCL Inactive BACTRIM DS 800-160 MG TABS TAKE ONE TABLET BY MOUTH TWICE DAILY FOR 7 DAYS BACTRIM DS 800-160 MG TABS SULFAMETHOXAZOLE-TRIMETHOPRIM Inactive BACTRIM DS 800-160 MG TABS one tablet twice a day for seven days BACTRIM DS 800-160 MG TABS SULFAMETHOXAZOLE-TRIMETHOPRIM Inactive MACROBID 100 MG CAP 1 cap by mouth twice daily MACROBID 100 MG CAP 5711575 NITROFURANTOIN MONOHYD MACRO Inactive JANUVIA 100 MG TABS Take 1 tab daily JANUVIA 100 MG TABS SITAGLIPTIN PHOSPHATE Inactive GLUCOTROL XL 5 MG [id number] one tablet daily GLUCOTROL XL 5 MG [id number] GLIPIZIDE Inactive BACTRIM DS 800-160 MG ORAL TABS 1 BID for 5 days BACTRIM DS 800-160 MG ORAL TABS SULFAMETHOXAZOLE-TRIMETHOPRIM Inactive DIFLUCAN 150 MG TAB 1 tablet by mouth daily DIFLUCAN 150 MG TAB 139642 FLUCONAZOLE Inactive MACRODANTIN 100 MG CAPS 1 capsule by mouth twice daily for seven days MACRODANTIN 100 MG CAPS 8939934 NITROFURANTOIN MACROCRYSTAL Inactive AMOXICILLIN 500 MG CAPS 2 po BID x 10 days AMOXICILLIN 500 MG CAPS 890923 AMOXICILLIN Inactive BACTRIM DS 800-160 MG TABS 1 po BID x 7 days BACTRIM DS 800-160 MG TABS SULFAMETHOXAZOLE-TRIMETHOPRIM Inactive CIPRO 250 MG TAB 1 tablet by mouth twice daily CIPRO 250 MG TAB 331774 CIPROFLOXACIN HCL Inactive MACROBID 100 MG CAP 1 cap by mouth twice daily MACROBID 100 MG CAP 0818708 NITROFURANTOIN MONOHYD MACRO Inactive BACTRIM DS TABS Take 1 po BID BACTRIM DS TABS SULFAMETHOXAZOLE-TRIMETHOPRIM TABS Inactive AMOXICILLIN 500 MG ORAL CAPS tid AMOXICILLIN 500 MG ORAL CAPS 422706 AMOXICILLIN Inactive CIPRO 250 MG TAB 1 tablet by mouth twice daily CIPRO 250 MG TAB 935791 CIPROFLOXACIN HCL Inactive Advance Directives Directive Description Start Date PERMISSION TO SHARE Immunizations Vaccine Administration Date Value Standard Description pneumococcal immunization administered Pneumovax 23 [CVX33] pneumococcal polysaccharide vaccine, 23 valent Seasonal influenza vaccine, injectable, containing preservative, for > 3 years old (Afluria, FluLaval, Fluzone, Fluvirin, Fluarix, Agriflu(>=18 yo)) Fluzone (>3 yrs.) [[id number]] Influenza, seasonal, injectable Vital Signs Date Name [...] Panel - Chemistry sodium, serum 138 mmol/L 722-291 4939/07/02 potassium, serum 4.5 mmol/L 3.5-5.2 chloride, serum [...] HGBA1C - Chemistry cholesterol, serum 147 mg/dL 553-292 8132/08/18 triglyceride, serum, fasting 242 mg/dL 30-200 HDL cholesterol, serum 36 mg/dL 32-96 LDL cholesterol, serum 63 mg/dL 0-130 sodium, serum 137 mmol/L 180-504 8514/08/18 potassium, serum 4.7 mmol/L 3.5-5.2 chloride, serum [...] 0.2 Encounters Code Encounter Date Provider Facility CPT-21396 Level 4 Est. Patient 09:54:20 CDT Nadir Hector MD [facility] CPT-54502 Level 2 Est. Patient 18:56:33 CDT Catalino Irene MD [facility] CPT-97201 Level 4 New Patient 14:59:23 CDT Catalino Irene MD [facility] CPT-59619 Level 3 Est. Patient 16:43:04 SUPPORT SERVICES MANAGER Nadir Hector MD [facility] CPT-56335 Level 4 Est. Patient 14:21:01 SUPPORT SERVICES MANAGER Nadir Hector MD [facility] CPT-39147 Level 3 Est. Patient 16:41:34 CDT Nadir Hector MD [facility] CPT-73699 Level 4 Est. Patient 13:54:35 SUPPORT SERVICES MANAGER Nadir Hector MD [facility] CPT-62622 Level 3 Est. Patient 15:51:21 CDT Nadir Hector MD [facility] CPT-07507 Level 4 New Patient 15:58:26 CDT Catalino Irene MD [facility] CPT-16409 Level 4 Est. Patient 15:42:38 SUPPORT SERVICES MANAGER Nadir Hecotr MD [facility] Procedures Code Procedure Name Date Entry Date Standard Description CPT-61438 Urine Dip (Floor Use Only) 18:56:34 CDT CPT-99892 Urine Dip (Floor Use Only) 14:21:22 CDT CPT-J0561 Bicillin LA 1,200,000 u (PCN G Benzathine) 13:16:19 CDT CPT-79708 Abx/Therapy Injection 13:16:19 CDT CPT-79846 Urine Dip (Floor Use Only) 14:59:25 CDT CPT-56933 Bladder Scan 14:59:24 CDT CPT-05875 Cystoscopy 14:59:24 CDT CPT-81748 Abd single AP View 12:13:13 CDT CPT-000 Give Pneumovax 14:21:01 SUPPORT SERVICES MANAGER CPT-000 Give Appropriate Flu Vaccine 14:21:01 SUPPORT SERVICES MANAGER CPT-72694 Bone Density 08:41:23 SUPPORT SERVICES MANAGER CPT-000 Give Appropriate Flu Vaccine 13:54:35 SUPPORT SERVICES MANAGER CPT-000 Give Pneumovax 13:54:35 SUPPORT SERVICES MANAGER CPT-93068 Administration 2+ single or combination vaccines inc oral 14:01:24 SUPPORT SERVICES MANAGER CPT-31842 Administration single or combination vaccine inc oral 14 :01:24 SUPPORT SERVICES MANAGER CPT-47299 Influenza High Dose age 65+ 14:01:24 SUPPORT SERVICES MANAGER CPT-36376 Pneumovax 14:01:24 SUPPORT SERVICES MANAGER CPT-66315 Venipuncture Draw Fee 10:36:48 CDT CPT-000 Give Appropriate Flu Vaccine 15:20:11 SUPPORT SERVICES MANAGER CPT-45723 Administration single or combination vaccine inc oral 15 :50:33 SUPPORT SERVICES MANAGER CPT-47869 Influenza High Dose age 65+ 15:50:33 SUPPORT SERVICES MANAGER CPT-16106 LS spine AP and Lat 15:30:05 SUPPORT SERVICES MANAGER CPT-18502 Hip comp min 2V 15:30:05 SUPPORT SERVICES MANAGER CPT-94657 Postop F/U Visit 17:28:18 CDT CPT-OV Office Visit 15:04:38 CDT CPT-08172 Bladder Scan 15:58:26 CDT CPT-72424 Cystoscopy 15:58:26 CDT CPT-OV Office Visit 16:15:09 CDT CPT-000 Give Appropriate Flu Vaccine 16:33:10 SUPPORT SERVICES MANAGER CPT-13290 Administration single or combination vaccine inc oral 19 :21:12 SUPPORT SERVICES MANAGER CPT-24220 Influenza split virus > age 3 19:21:12 SUPPORT SERVICES MANAGER
--- OUTSIDE RECORDS SUMMARY | 2017-07-23 09:39 | XMS REPORT | Clinical Summary ---
Author Author Admin, IMTIAZ Organization [facility] Address Unknown Phone Unavailable Allergies, Adverse Reactions, Alerts Allergy Name Reaction Description Start Date Severity Status Provider No Known Allergies Dayanajayant Sánchezley Conditions or Problems Problem Name Problem Code Onset Date Status Entry Date Provider Comment Standard Description Annotate HYPERTENSION 401.9 Active Naidr Hector MD Unspecified essential hypertension DIABETES MELLITUS 250.00 Active Nadir Hector MD Diabetes mellitus without mention of complication, type II or unspecified type, not stated as uncontrolled HYPERLIPIDEMIA 272.4 Active Nadir Hector MD Other and unspecified hyperlipidemia HEALTH MAINTENANCE EXAM V70.0 Active Nadir Hector MD Routine general medical examination at a [facility] facility PERIPHERAL NEUROPATHY 356.9 Active Nadir [...] AMOXICILLIN 500 MG ORAL CAPS tid AMOXICILLIN 97484269063 No Longer Active Catalino Irene MD Active BACTRIM DS TABS Take 1 po BID SULFAMETHOXAZOLE- TRIMETHOPRIM TABS 23647412596 No Longer Active Pam Gomez LPN Active MACROBID 100 MG CAP 1 cap by mouth twice daily NITROFURANTOIN MONOHYD MACRO 44178102121 No Longer Active Pam Gomez LPN Active DIFLUCAN 150 MG TAB 1 tablet by mouth daily FLUCONAZOLE 59536340426 Active Pam Gomez LPN Active CIPRO 250 MG TAB 1 tablet by mouth twice daily CIPROFLOXACIN HCL 38032848255 No Longer Active Pam Gomez LPN Active JANUVIA 100 MG ORAL TABS 1 daily SITAGLIPTIN PHOSPHATE 71250560362 Active Nadir Hector MD Active GLUCOTROL XL 5 MG [id number] one tablet daily GLIPIZIDE 50082678935 No Longer Active Nadir Hector MD Active BACTRIM DS 800-160 MG TABS 1 po BID x 7 days SULFAMETHOXAZOLE-TRIMETHOPRIM 24220864633 No Longer Active Jamal Burrell MD Active FOSAMAX 70 MG TABS 1 po qweek. Take 30min prior to first food/drink. Avoid lying down x 1 hour. ALENDRONATE SODIUM 75354915708 Active Nadir Hector MD Active AMOXICILLIN 500 MG CAPS 2 po BID x 10 days AMOXICILLIN 19377082042 No Longer Active Nadir Hector MD Active JANUVIA 100 MG TABS 1 tablet by mouth daily SITAGLIPTIN PHOSPHATE 96184351196 No Longer Active Nadir Hector MD Active JANUVIA 100 MG TABS Take 1 tab daily SITAGLIPTIN PHOSPHATE 72123290475 No Longer Active Sharon Nuñez Active MACROBID 100 MG CAP 1 cap by mouth twice daily NITROFURANTOIN MONOHYD MACRO 47954298813 No Longer Active Crystal Fernández APRN Active MACRODANTIN 100 MG CAPS 1 capsule by mouth twice daily for seven days NITROFURANTOIN MACROCRYSTAL 24751039576 No Longer Active Ro Yang RN Active BACTRIM DS 800-160 MG TABS one tablet twice a day for seven days SULFAMETHOXAZOLE-TRIMETHOPRIM 06060888280 No Longer Active HEMANTH Griffin Active BACTRIM DS 800-160 MG TABS TAKE ONE TABLET BY MOUTH TWICE DAILY FOR 7 DAYS SULFAMETHOXAZOLE-TRIMETHOPRIM 19114457963 No Longer Active Viviana Lal RN Active CIPRO 250 MG TABS TAKE ONE TABLET BY MOUTH TWICE DAILY FOR 5 DAYS CIPROFLOXACIN HCL 64060638879 No Longer Active Viviana Lal RN Active FLEXERIL 10 MG TABS 1/2 TO 1 TABLET Q12H NEEDED CYCLOBENZAPRINE HCL 59987066968 No Longer Active Viviana Lal RN Active AMLODIPINE BESYLATE 5 MG TABS 1 1/2 daily AMLODIPINE BESYLATE 12224155152 Active Nadir Hector MD Active ONGLYZA 5 MG TABS 1 QAM SAXAGLIPTIN HCL 39382597967 No Longer Active Nadir Hector MD Active AMLODIPINE BESYLATE 5 MG TABS 1 1/2 TABLET DAILY AMLODIPINE BESYLATE 58625744435 No Longer Active Nadir Hector MD Active LORTAB 5-500 MG TABS 1 BY MOUTH Q6H NEEDED HYDROCODONE- ACETAMINOPHEN 32813072622 No Longer Active Nadir Hector MD Active ACTOS 45 MG TABS 1 QD PIOGLITAZONE HCL 61240251467 No Longer Active Nadir Hector MD Active BACTRIM DS 800-160 MG TAB 1 tab by mouth twice daily TRIMETHOPRIM-SULFAMETHOXAZOLE 51528818994 No Longer Active Nadir Hector MD Active CALCIUM + D 600-200 MG-UNIT TABS 1 TABLET TWO TIMES A DAY CALCIUM CARBONATE-VITAMIN D 83783187859 Active Ro Yang RN Active METOPROLOL SUCCINATE 25 MG [id number] 1 QAM METOPROLOL SUCCINATE 58249460500 Active Nadir Hector MD Active AMARYL 4 MG TABS 1 QD GLIMEPIRIDE 42152020704 Active Nadir Hector MD Active LOVASTATIN 40 MG TABS 1 QD LOVASTATIN 81574205739 Active Nadir Hector MD Active GLUCOPHAGE 1000 MG TABS 1 TABLET TWO TIMES A DAY METFORMIN HCL 62933646711 Active Nadir Hectro MD Active MAXZIDE-25 37.5-25 MG TABS 1 QD TRIAMTERENE-HCTZ 48301067024 Active Nadir Hector MD Active ACCUPRIL 40 MG TABS 1 QD QUINAPRIL HCL 18217728989 Active Nadir Hector MD Active BACTRIM DS 800-160 MG TAB 1 tab by mouth twice daily BACTRIM DS 800-160 MG TAB TRIMETHOPRIM-SULFAMETHOXAZOLE Inactive ACTOS 45 MG TABS 1 QD ACTOS 45 MG TABS 421737 PIOGLITAZONE HCL Inactive LORTAB 5-500 MG TABS 1 BY MOUTH Q6H NEEDED LORTAB 5-500 MG TABS HYDROCODONE-ACETAMINOPHEN Inactive AMLODIPINE BESYLATE 5 MG TABS 1 1/2 TABLET DAILY AMLODIPINE BESYLATE 5 MG TABS 583334 AMLODIPINE BESYLATE Inactive ONGLYZA 5 MG TABS 1 QAM ONGLYZA 5 MG TABS SAXAGLIPTIN HCL Inactive FLEXERIL 10 MG TABS 1/2 TO 1 TABLET Q12H NEEDED FLEXERIL 10 MG TABS CYCLOBENZAPRINE HCL Inactive CIPRO 250 MG TABS TAKE ONE TABLET BY MOUTH TWICE DAILY FOR 5 DAYS CIPRO 250 MG TABS 330783 CIPROFLOXACIN HCL Inactive BACTRIM DS 800-160 MG TABS TAKE ONE TABLET BY MOUTH TWICE DAILY FOR 7 DAYS BACTRIM DS 800-160 MG TABS SULFAMETHOXAZOLE-TRIMETHOPRIM Inactive BACTRIM DS 800-160 MG TABS one tablet twice a day for seven days BACTRIM DS 800-160 MG TABS SULFAMETHOXAZOLE-TRIMETHOPRIM Inactive MACROBID 100 MG CAP 1 cap by mouth twice daily MACROBID 100 MG CAP 486707 NITROFURANTOIN MONOHYD MACRO Inactive JANUVIA 100 MG TABS Take 1 tab daily JANUVIA 100 MG TABS SITAGLIPTIN PHOSPHATE Inactive GLUCOTROL XL 5 MG [id number] one tablet daily GLUCOTROL XL 5 MG [id number] GLIPIZIDE Inactive MACRODANTIN 100 MG CAPS 1 capsule by mouth twice daily for seven days MACRODANTIN 100 MG CAPS 118938 NITROFURANTOIN MACROCRYSTAL Inactive AMOXICILLIN 500 MG CAPS 2 po BID x 10 days AMOXICILLIN 500 MG CAPS 725930 AMOXICILLIN Inactive BACTRIM DS 800-160 MG TABS 1 po BID x 7 days BACTRIM DS 800-160 MG TABS SULFAMETHOXAZOLE-TRIMETHOPRIM Inactive CIPRO 250 MG TAB 1 tablet by mouth twice daily CIPRO 250 MG TAB 442945 CIPROFLOXACIN HCL Inactive MACROBID 100 MG CAP 1 cap by mouth twice daily MACROBID 100 MG CAP 051615 NITROFURANTOIN MONOHYD MACRO Inactive BACTRIM DS TABS Take 1 po BID BACTRIM DS TABS SULFAMETHOXAZOLE-TRIMETHOPRIM TABS Inactive AMOXICILLIN 500 MG ORAL CAPS tid AMOXICILLIN 500 MG ORAL CAPS 827781 AMOXICILLIN Inactive Advance Directives Directive Description Start Date PERMISSION TO SHARE Immunizations Vaccine Administration Date Value Standard Description pneumococcal immunization administered Pneumovax 23 [CVX33] pneumococcal polysaccharide vaccine, 23 valent Seasonal influenza vaccine, injectable, containing preservative, for > 3 years old (Afluria, FluLaval, Fluzone, Fluvirin, Fluarix, Agriflu(>=18 yo)) Fluzone (>3 yrs.) [IEW042] Influenza, seasonal, injectable Vital Signs Date Name [...] Panel - Chemistry sodium, serum 138 mmol/L 504-518 8482/07/02 potassium, serum 4.5 mmol/L 3.5-5.2 chloride, serum [...] Report: Comp. Metabolic Panel, HGBA1C - Chemistry chloride, serum 104 mmol/L 98-107 potassium, serum 4.5 mmol/L 3.5-5.2 sodium, serum 140 mmol/L 890-999 9709/07/23 urea nitrogen, blood 19 mg/dL 7-18 creatinine, serum 0.80 mg/dL 0.60-1.30 alanine aminotransferase (SGPT), serum 34 U/L 12-78 aspartate aminotransferase (SGOT), serum 18 U/L 15-37 alkaline phosphatase, serum 133 U/L 50-136 calcium, serum 9.4 mg/dL 8.5-10.1 bilirubin, serum, total 0.20 mg/dL 0.00-1.00 hemoglobin A1C, blood, as % of total hemoglobin 7.2 % 4.3-6.0 blood glucose 151 mg/dL 65-110 carbon dioxide, venous blood 30.0 mmol/L 21.0-32.0 Lab Report: HGBA1C - Chemistry hemoglobin A1C, blood, as % of total hemoglobin 7.0 % 4.3-6.0 hemoglobin A1C, blood, as % of total hemoglobin 7.1 % 4.3-6.0 hemoglobin A1C, blood, as % of total hemoglobin 7.7 % 4.3-6.0 Lab Report: UADIP W/MICRO, AUTO - Chemistry protein, total urine random 3+ mg/dL Negative RBC, urine, dipstick 3+ Negative RBC, urine, dipstick 1+ Negative RBC, urine, dipstick 3+ Negative protein, total urine random Trace mg/dL Negative protein, total urine random 2+ mg/dL Negative RBC, urine, dipstick 1+ Negative protein, total urine random 2+ mg/dL Negative RBC, urine, dipstick 3+ Negative protein, total urine random 2+ mg/dL Negative Lab Report: UADIP W/MICRO, AUTO - Urinalysis glucose, urine, semiquantitative Negative Negative ketones, urine, by test strip Negative Negative bilirubin, urine Negative Negative urine color Yellow Colorless;Lightyellow;Straw;Yellow appearance, urine SlCloudy Clear specific gravity, urine 1.025 1.000-1.030 pH, urine, semiquantitative 5.5 5.0-8.5 urobilinogen, urine, semiquantitative (dipstick) 0.2 Normal leukocyte esterase, urine, by dipstick Trace Negative nitrite, urine, semiquantitative Negative Negative appearance, urine Cloudy Clear specific gravity, urine 1.025 1.000-1.030 pH, urine, semiquantitative 6.0 5.0-8.5 glucose, urine, semiquantitative Negative Negative urobilinogen, urine, semiquantitative [...] Negative Negative glucose, urine, semiquantitative Negative Negative urine color Light yellow Colorless;Lightyellow;Straw;Yellow appearance, urine Cloudy Clear specific gravity, urine 1.030 1.000-1.030 pH, urine, semiquantitative 6.5 5.0-8.5 urine color Yellow Colorless;Lightyellow;Straw;Yellow ketones, urine, [...] 2+ Negative nitrite, urine, semiquantitative Negative Negative ketones, urine, by [...] 0.2 Encounters Code Encounter Date Provider Facility CPT-88391 Level 4 New Patient 14:59:23 CDT Catalino Irene MD [facility] CPT-22440 Level 3 Est. Patient 16:43:04 MACHINE CLOTH TRIMMER Nadir Hector MD [facility] CPT-19861 Level 4 Est. Patient 14:21:01 MACHINE CLOTH TRIMMER Nadir Hector MD [facility] CPT-19185 Level 3 Est. Patient 16:41:34 CDT Nadir Hector MD [facility] CPT-77283 Level 4 Est. Patient 13:54:35 MACHINE CLOTH TRIMMER Nadir Hector MD [facility] CPT-12858 Level 3 Est. Patient 15:51:21 CDT Nadir Hector MD [facility] CPT-75156 Level 4 New Patient 15:58:26 CDT Catalino Irene MD [facility] CPT-76341 Level 4 Est. Patient 15:42:38 MACHINE CLOTH TRIMMER Nadir Hector MD [facility] Procedures Code Procedure Name Date Entry Date Standard Description CPT-43925 Urine Dip (Floor Use Only) 14:59:25 CDT CPT-08702 Bladder Scan 14:59:24 CDT CPT-90346 Cystoscopy 14:59:24 CDT CPT-82616 Abd single AP View 12:13:13 CDT CPT-000 Give Pneumovax 14:21:01 MACHINE CLOTH TRIMMER CPT-000 Give Appropriate Flu Vaccine 14:21:01 MACHINE CLOTH TRIMMER CPT-31394 Bone Density 08:41:23 MACHINE CLOTH TRIMMER CPT-000 Give Appropriate Flu Vaccine 13:54:35 MACHINE CLOTH TRIMMER CPT-000 Give Pneumovax 13:54:35 MACHINE CLOTH TRIMMER CPT-81831 Administration 2+ single or combination vaccines inc oral 14:01:24 MACHINE CLOTH TRIMMER CPT-69341 Administration single or combination vaccine inc oral 14 :01:24 MACHINE CLOTH TRIMMER CPT-78022 Influenza High Dose age 65+ 14:01:24 MACHINE CLOTH TRIMMER CPT-23623 Pneumovax 14:01:24 MACHINE CLOTH TRIMMER CPT-20386 Venipuncture Draw Fee 10:36:48 CDT CPT-000 Give Appropriate Flu Vaccine 15:20:11 MACHINE CLOTH TRIMMER CPT-66290 Administration single or combination vaccine inc oral 15 :50:33 MACHINE CLOTH TRIMMER CPT-66575 Influenza High Dose age 65+ 15:50:33 MACHINE CLOTH TRIMMER CPT-22066 LS spine AP and Lat 15:30:05 MACHINE CLOTH TRIMMER CPT-01720 Hip comp min 2V 15:30:05 MACHINE CLOTH TRIMMER CPT-03007 Postop F/U Visit 17:28:18 CDT CPT-OV Office Visit 15:04:38 CDT CPT-08885 Bladder Scan 15:58:26 CDT CPT-94948 Cystoscopy 15:58:26 CDT CPT-OV Office Visit 16:15:09 CDT CPT-000 Give Appropriate Flu Vaccine 16:33:10 MACHINE CLOTH TRIMMER CPT-75912 Administration single or combination vaccine inc oral 19 :21:12 MACHINE CLOTH TRIMMER CPT-58505 Influenza split virus > age 3 19:21:12 MACHINE CLOTH TRIMMER
--- OUTSIDE RECORDS SUMMARY | 2017-07-23 09:40 | XMS REPORT | Clinical Summary ---
Author Author Admin, IMTIAZ Organization [facility] Address Unknown Phone Unavailable Allergies, [...] sinusitis, unspecified Menopause, surgical 627.4 Active [facility] Symptomatic states associated with artificial menopause Urinary [...] TAB 1 tablet by mouth daily FLUCONAZOLE 10296315898 No Longer Active Nadir Hector MD Active BACTRIM DS 800-160 MG ORAL TABS 1 BID for 5 days SULFAMETHOXAZOLE-TRIMETHOPRIM 71063965077 No Longer Active Nadir Hector MD Active CIPRO 250 MG TAB 1 tablet by mouth twice daily CIPROFLOXACIN HCL 35402906544 No Longer Active Ro Meyer Active AMOXICILLIN 500 MG ORAL CAPS tid AMOXICILLIN 97156199898 No Longer Active Catalino Irene MD Active BACTRIM DS TABS Take 1 po BID SULFAMETHOXAZOLE- TRIMETHOPRIM TABS 94105669469 No Longer Active Pam Gomez LPN Active MACROBID 100 MG CAP 1 cap by mouth twice daily NITROFURANTOIN MONOHYD MACRO 74340731369 No Longer Active Pam Gomez LPN Active CIPRO 250 MG TAB 1 tablet by mouth twice daily CIPROFLOXACIN HCL 64413678400 No Longer Active Pam Gomez LPN Active JANUVIA 100 MG ORAL TABS 1 daily SITAGLIPTIN PHOSPHATE 76388734400 Active Nadir Hector MD Active GLUCOTROL XL 5 MG [id number] one tablet daily GLIPIZIDE 68564557507 No Longer Active Nadir Hector MD Active BACTRIM DS 800-160 MG TABS 1 po BID x 7 days SULFAMETHOXAZOLE-TRIMETHOPRIM 83158651682 No Longer Active Jamal Burrell MD Active FOSAMAX 70 MG TABS 1 po qweek. Take 30min prior to first food/drink. Avoid lying down x 1 hour. ALENDRONATE SODIUM 73395088362 Active Nadir Hector MD Active AMOXICILLIN 500 MG CAPS 2 po BID x 10 days AMOXICILLIN 50741374025 No Longer Active Nadir Hector MD Active JANUVIA 100 MG TABS 1 tablet by mouth daily SITAGLIPTIN PHOSPHATE 76834728532 No Longer Active Nadir Hector MD Active JANUVIA 100 MG TABS Take 1 tab daily SITAGLIPTIN PHOSPHATE 22905388946 No Longer Active Sharon Nuñez Active MACROBID 100 MG CAP 1 cap by mouth twice daily NITROFURANTOIN MONOHYD MACRO 53741300118 No Longer Active Crystal Fernández APRN Active MACRODANTIN 100 MG CAPS 1 capsule by mouth twice daily for seven days NITROFURANTOIN MACROCRYSTAL 29058214668 No Longer Active Ro Trey RN Active BACTRIM DS 800-160 MG TABS one tablet twice a day for seven days SULFAMETHOXAZOLE-TRIMETHOPRIM 60049134937 No Longer Active HEMANTH Griffin Active BACTRIM DS 800-160 MG TABS TAKE ONE TABLET BY MOUTH TWICE DAILY FOR 7 DAYS SULFAMETHOXAZOLE-TRIMETHOPRIM 37269375615 No Longer Active Viviana Lal RN Active CIPRO 250 MG TABS TAKE ONE TABLET BY MOUTH TWICE DAILY FOR 5 DAYS CIPROFLOXACIN HCL 25022680624 No Longer Active Viviana Lal RN Active FLEXERIL 10 MG TABS 1/2 TO 1 TABLET Q12H NEEDED CYCLOBENZAPRINE HCL 20073476013 No Longer Active Viviana Lal RN Active AMLODIPINE BESYLATE 5 MG TABS 1 1/2 daily AMLODIPINE BESYLATE 51710328291 Active Nadir Hector MD Active ONGLYZA 5 MG TABS 1 QAM SAXAGLIPTIN HCL 25586377687 No Longer Active Nadir Hector MD Active AMLODIPINE BESYLATE 5 MG TABS 1 1/2 TABLET DAILY AMLODIPINE BESYLATE 67113513089 No Longer Active Nadir Hector MD Active LORTAB 5-500 MG TABS 1 BY MOUTH Q6H NEEDED HYDROCODONE- ACETAMINOPHEN 05092904373 No Longer Active Nadir Hector MD Active ACTOS 45 MG TABS 1 QD PIOGLITAZONE HCL 64191080764 No Longer Active Nadir Hector MD Active BACTRIM DS 800-160 MG TAB 1 tab by mouth twice daily TRIMETHOPRIM-SULFAMETHOXAZOLE 30845128598 No Longer Active Nadir Hector MD Active CALCIUM + D 600-200 MG-UNIT TABS 1 TABLET TWO TIMES A DAY CALCIUM CARBONATE-VITAMIN D 94706669996 Active Ro Yang RN Active METOPROLOL SUCCINATE 25 MG [id number] 1 QAM METOPROLOL SUCCINATE 86586279431 Active Nadir Hector MD Active AMARYL 4 MG TABS 1 QD GLIMEPIRIDE 32937391075 Active Nadir Hector MD Active LOVASTATIN 40 MG TABS 1 QD LOVASTATIN 40711400825 Active Nadir Hector MD Active GLUCOPHAGE 1000 MG TABS 1 TABLET TWO TIMES A DAY METFORMIN HCL 70463145234 Active Nadir Hector MD Active MAXZIDE-25 37.5-25 MG TABS 1 QD TRIAMTERENE-HCTZ 88635184899 Active Nadir Hector MD Active ACCUPRIL 40 MG TABS 1 QD QUINAPRIL HCL 36796884587 Active Nadir Hector MD Active BACTRIM DS 800-160 MG TAB 1 tab by mouth twice daily BACTRIM DS 800-160 MG TAB TRIMETHOPRIM-SULFAMETHOXAZOLE Inactive ACTOS 45 MG TABS 1 QD ACTOS 45 MG TABS 984186 PIOGLITAZONE HCL Inactive LORTAB 5-500 MG TABS 1 BY MOUTH Q6H NEEDED LORTAB 5-500 MG TABS HYDROCODONE-ACETAMINOPHEN Inactive AMLODIPINE BESYLATE 5 MG TABS 1 1/2 TABLET DAILY AMLODIPINE BESYLATE 5 MG TABS 778095 AMLODIPINE BESYLATE Inactive ONGLYZA 5 MG TABS 1 QAM ONGLYZA 5 MG TABS SAXAGLIPTIN HCL Inactive FLEXERIL 10 MG TABS 1/2 TO 1 TABLET Q12H NEEDED FLEXERIL 10 MG TABS CYCLOBENZAPRINE HCL Inactive CIPRO 250 MG TABS TAKE ONE TABLET BY MOUTH TWICE DAILY FOR 5 DAYS CIPRO 250 MG TABS 410343 CIPROFLOXACIN HCL Inactive BACTRIM DS 800-160 MG TABS TAKE ONE TABLET BY MOUTH TWICE DAILY FOR 7 DAYS BACTRIM DS 800-160 MG TABS SULFAMETHOXAZOLE-TRIMETHOPRIM Inactive BACTRIM DS 800-160 MG TABS one tablet twice a day for seven days BACTRIM DS 800-160 MG TABS SULFAMETHOXAZOLE-TRIMETHOPRIM Inactive MACROBID 100 MG CAP 1 cap by mouth twice daily MACROBID 100 MG CAP 6958957 NITROFURANTOIN MONOHYD MACRO Inactive JANUVIA 100 MG TABS Take 1 tab daily JANUVIA 100 MG TABS SITAGLIPTIN PHOSPHATE Inactive GLUCOTROL XL 5 MG [id number] one tablet daily GLUCOTROL XL 5 MG [id number] GLIPIZIDE Inactive BACTRIM DS 800-160 MG ORAL TABS 1 BID for 5 days BACTRIM DS 800-160 MG ORAL TABS SULFAMETHOXAZOLE-TRIMETHOPRIM Inactive DIFLUCAN 150 MG TAB 1 tablet by mouth daily DIFLUCAN 150 MG TAB 917406 FLUCONAZOLE Inactive MACRODANTIN 100 MG CAPS 1 capsule by mouth twice daily for seven days MACRODANTIN 100 MG CAPS 0431853 NITROFURANTOIN MACROCRYSTAL Inactive AMOXICILLIN 500 MG CAPS 2 po BID x 10 days AMOXICILLIN 500 MG CAPS 260233 AMOXICILLIN Inactive BACTRIM DS 800-160 MG TABS 1 po BID x 7 days BACTRIM DS 800-160 MG TABS SULFAMETHOXAZOLE-TRIMETHOPRIM Inactive CIPRO 250 MG TAB 1 tablet by mouth twice daily CIPRO 250 MG TAB 913472 CIPROFLOXACIN HCL Inactive MACROBID 100 MG CAP 1 cap by mouth twice daily MACROBID 100 MG CAP 5332746 NITROFURANTOIN MONOHYD MACRO Inactive BACTRIM DS TABS Take 1 po BID BACTRIM DS TABS SULFAMETHOXAZOLE-TRIMETHOPRIM TABS Inactive AMOXICILLIN 500 MG ORAL CAPS tid AMOXICILLIN 500 MG ORAL CAPS 365931 AMOXICILLIN Inactive CIPRO 250 MG TAB 1 tablet by mouth twice daily CIPRO 250 MG TAB 207580 CIPROFLOXACIN HCL Inactive Advance Directives Directive Description Start Date PERMISSION TO SHARE Immunizations Vaccine Administration Date Value Standard Description pneumococcal immunization administered Pneumovax 23 [CVX33] pneumococcal polysaccharide vaccine, 23 valent Seasonal influenza vaccine, injectable, containing preservative, for > 3 years old (Afluria, FluLaval, Fluzone, Fluvirin, Fluarix, Agriflu(>=18 yo)) Fluzone (>3 yrs.) [LFI892] Influenza, seasonal, injectable Vital Signs Date Name [...] BP tyler blood pressure, systolic - 8480-6 145 mm[Hg] BP sys pulse rate E&M - 8867-4 100 /min Heart rate temperature E&M 97.5 [degF] Body temperature weight E&M - 3141-9 [...] Panel - Chemistry sodium, serum 138 mmol/L 993-822 4839/07/02 potassium, serum 4.5 mmol/L 3.5-5.2 chloride, serum [...] HGBA1C - Chemistry cholesterol, serum 147 mg/dL 850-255 8431/08/18 triglyceride, serum, fasting 242 mg/dL 30-200 HDL cholesterol, serum 36 mg/dL 32-96 LDL cholesterol, serum 63 mg/dL 0-130 sodium, serum 137 mmol/L 694-311 7634/08/18 potassium, serum 4.7 mmol/L 3.5-5.2 chloride, serum [...] 0.2 Encounters Code Encounter Date Provider Facility CPT-42980 Level 4 Est. Patient 09:54:20 CDT Nadir Hector MD [facility] CPT-94103 Level 2 Est. Patient 18:56:33 CDT Catalino Irene MD [facility] CPT-63931 Level 4 New Patient 14:59:23 CDT Catalino Irene MD [facility] CPT-52884 Level 3 Est. Patient 16:43:04 SINGLE END SEWER Nadir Hector MD [facility] CPT-18616 Level 4 Est. Patient 14:21:01 SINGLE END SEWER Nadir Hector MD [facility] CPT-05627 Level 3 Est. Patient 16:41:34 CDT Nadir Hector MD [facility] CPT-11729 Level 4 Est. Patient 13:54:35 SINGLE END SEWER Nadir Hector MD [facility] CPT-74070 Level 3 Est. Patient 15:51:21 CDT Nadir Hector MD [facility] CPT-37418 Level 4 New Patient 15:58:26 CDT Catalino Irene MD [facility] CPT-06211 Level 4 Est. Patient 15:42:38 SINGLE END SEWER Nadir Hector MD [facility] Procedures Code Procedure Name Date Entry Date Standard Description CPT-88243 Urine Dip (Floor Use Only) 18:56:34 CDT CPT-83959 Urine Dip (Floor Use Only) 14:21:22 CDT CPT-J0561 Bicillin LA 1,200,000 u (PCN G Benzathine) 13:16:19 CDT CPT-08754 Abx/Therapy Injection 13:16:19 CDT CPT-04766 Urine Dip (Floor Use Only) 14:59:25 CDT CPT-37931 Bladder Scan 14:59:24 CDT CPT-74373 Cystoscopy 14:59:24 CDT CPT-89218 Abd single AP View 12:13:13 CDT CPT-000 Give Pneumovax 14:21:01 SINGLE END SEWER CPT-000 Give Appropriate Flu Vaccine 14:21:01 SINGLE END SEWER CPT-36100 Bone Density 08:41:23 SINGLE END SEWER CPT-000 Give Appropriate Flu Vaccine 13:54:35 SINGLE END SEWER CPT-000 Give Pneumovax 13:54:35 SINGLE END SEWER CPT-51400 Administration 2+ single or combination vaccines inc oral 14:01:24 SINGLE END SEWER CPT-38721 Administration single or combination vaccine inc oral 14 :01:24 SINGLE END SEWER CPT-84836 Influenza High Dose age 65+ 14:01:24 SINGLE END SEWER CPT-31662 Pneumovax 14:01:24 SINGLE END SEWER CPT-30752 Venipuncture Draw Fee 10:36:48 CDT CPT-000 Give Appropriate Flu Vaccine 15:20:11 SINGLE END SEWER CPT-08811 Administration single or combination vaccine inc oral 15 :50:33 SINGLE END SEWER CPT-47281 Influenza High Dose age 65+ 15:50:33 SINGLE END SEWER CPT-44531 LS spine AP and Lat 15:30:05 SINGLE END SEWER CPT-83931 Hip comp min 2V 15:30:05 SINGLE END SEWER CPT-84364 Postop F/U Visit 17:28:18 CDT CPT-OV Office Visit 15:04:38 CDT CPT-63105 Bladder Scan 15:58:26 CDT CPT-09925 Cystoscopy 15:58:26 CDT CPT-OV Office Visit 16:15:09 CDT CPT-000 Give Appropriate Flu Vaccine 16:33:10 SINGLE END SEWER CPT-52042 Administration single or combination vaccine inc oral 19 :21:12 SINGLE END SEWER CPT-76662 Influenza split virus > age 3 19:21:12 SINGLE END SEWER
--- OUTSIDE RECORDS SUMMARY | 2017-07-23 09:41 | XMS REPORT | Clinical Summary ---
Author Author Admin, IMTIAZ Organization [facility] Address Unknown Phone Unavailable Allergies, [...] TAB 1 tablet by mouth daily FLUCONAZOLE 06889414468 No Longer Active Nadir Hector MD Active BACTRIM DS 800-160 MG ORAL TABS 1 BID for 5 days SULFAMETHOXAZOLE-TRIMETHOPRIM 55970695017 No Longer Active Nadir Hector MD Active CIPRO 250 MG TAB 1 tablet by mouth twice daily CIPROFLOXACIN HCL 85649742562 No Longer Active Ro Meyer Active AMOXICILLIN 500 MG ORAL CAPS tid AMOXICILLIN 01249851451 No Longer Active Catalino Irene MD Active BACTRIM DS TABS Take 1 po BID SULFAMETHOXAZOLE- TRIMETHOPRIM TABS 41523817743 No Longer Active Pam Gomez LPN Active MACROBID 100 MG CAP 1 cap by mouth twice daily NITROFURANTOIN MONOHYD MACRO 82238720316 No Longer Active Pma Gomez LPN Active CIPRO 250 MG TAB 1 tablet by mouth twice daily CIPROFLOXACIN HCL 41316293967 No Longer Active Pam Gomez LPN Active JANUVIA 100 MG ORAL TABS 1 daily SITAGLIPTIN PHOSPHATE 24415499188 Active Nadir Hector MD Active GLUCOTROL XL 5 MG [id number] one tablet daily GLIPIZIDE 54430917857 No Longer Active Nadir Hector MD Active BACTRIM DS 800-160 MG TABS 1 po BID x 7 days SULFAMETHOXAZOLE-TRIMETHOPRIM 81482882651 No Longer Active Jamal Burrell MD Active FOSAMAX 70 MG TABS 1 po qweek. Take 30min prior to first food/drink. Avoid lying down x 1 hour. ALENDRONATE SODIUM 61713943410 Active Nadir Hector MD Active AMOXICILLIN 500 MG CAPS 2 po BID x 10 days AMOXICILLIN 14736996735 No Longer Active Nadir Hector MD Active JANUVIA 100 MG TABS 1 tablet by mouth daily SITAGLIPTIN PHOSPHATE 82222694157 No Longer Active Nadir Hector MD Active JANUVIA 100 MG TABS Take 1 tab daily SITAGLIPTIN PHOSPHATE 41752444258 No Longer Active Sharon Nuñez Active MACROBID 100 MG CAP 1 cap by mouth twice daily NITROFURANTOIN MONOHYD MACRO 74613182498 No Longer Active Crystal Fernández APRN Active MACRODANTIN 100 MG CAPS 1 capsule by mouth twice daily for seven days NITROFURANTOIN MACROCRYSTAL 33686899812 No Longer Active Ro Trey RN Active BACTRIM DS 800-160 MG TABS one tablet twice a day for seven days SULFAMETHOXAZOLE-TRIMETHOPRIM 01193495986 No Longer Active HEMANTH Griffin Active BACTRIM DS 800-160 MG TABS TAKE ONE TABLET BY MOUTH TWICE DAILY FOR 7 DAYS SULFAMETHOXAZOLE-TRIMETHOPRIM 31181592873 No Longer Active Viviana Lal RN Active CIPRO 250 MG TABS TAKE ONE TABLET BY MOUTH TWICE DAILY FOR 5 DAYS CIPROFLOXACIN HCL 72885023455 No Longer Active Viviana Lal RN Active FLEXERIL 10 MG TABS 1/2 TO 1 TABLET Q12H NEEDED CYCLOBENZAPRINE HCL 51780743251 No Longer Active Viviana Lal RN Active AMLODIPINE BESYLATE 5 MG TABS 1 1/2 daily AMLODIPINE BESYLATE 44317090988 Active Nadir Hector MD Active ONGLYZA 5 MG TABS 1 QAM SAXAGLIPTIN HCL 95652990241 No Longer Active Nadir Hector MD Active AMLODIPINE BESYLATE 5 MG TABS 1 1/2 TABLET DAILY AMLODIPINE BESYLATE 01583175949 No Longer Active Nadir Hector MD Active LORTAB 5-500 MG TABS 1 BY MOUTH Q6H NEEDED HYDROCODONE- ACETAMINOPHEN 75517483193 No Longer Active Nadir Hector MD Active ACTOS 45 MG TABS 1 QD PIOGLITAZONE HCL 10698113026 No Longer Active Nadir Hector MD Active BACTRIM DS 800-160 MG TAB 1 tab by mouth twice daily TRIMETHOPRIM-SULFAMETHOXAZOLE 84591705314 No Longer Active Nadir Hector MD Active CALCIUM + D 600-200 MG-UNIT TABS 1 TABLET TWO TIMES A DAY CALCIUM CARBONATE-VITAMIN D 03378446156 Active Ro Yang RN Active METOPROLOL SUCCINATE 25 MG [id number] 1 QAM METOPROLOL SUCCINATE 61289973044 Active Nadir Hector MD Active AMARYL 4 MG TABS 1 QD GLIMEPIRIDE 38583615128 Active Naidr Hector MD Active LOVASTATIN 40 MG TABS 1 QD LOVASTATIN 55698265210 Active Nadir Hector MD Active GLUCOPHAGE 1000 MG TABS 1 TABLET TWO TIMES A DAY METFORMIN HCL 93744675057 Active Nadir Hector MD Active MAXZIDE-25 37.5-25 MG TABS 1 QD TRIAMTERENE-HCTZ 52543699867 Active Nadir Hector MD Active ACCUPRIL 40 MG TABS 1 QD QUINAPRIL HCL 59154688694 Active Nadir Hector MD Active BACTRIM DS 800-160 MG TAB 1 tab by mouth twice daily BACTRIM DS 800-160 MG TAB TRIMETHOPRIM-SULFAMETHOXAZOLE Inactive ACTOS 45 MG TABS 1 QD ACTOS 45 MG TABS 654488 PIOGLITAZONE HCL Inactive LORTAB 5-500 MG TABS 1 BY MOUTH Q6H NEEDED LORTAB 5-500 MG TABS HYDROCODONE-ACETAMINOPHEN Inactive AMLODIPINE BESYLATE 5 MG TABS 1 1/2 TABLET DAILY AMLODIPINE BESYLATE 5 MG TABS 991540 AMLODIPINE BESYLATE Inactive ONGLYZA 5 MG TABS 1 QAM ONGLYZA 5 MG TABS SAXAGLIPTIN HCL Inactive FLEXERIL 10 MG TABS 1/2 TO 1 TABLET Q12H NEEDED FLEXERIL 10 MG TABS CYCLOBENZAPRINE HCL Inactive CIPRO 250 MG TABS TAKE ONE TABLET BY MOUTH TWICE DAILY FOR 5 DAYS CIPRO 250 MG TABS 364842 CIPROFLOXACIN HCL Inactive BACTRIM DS 800-160 MG TABS TAKE ONE TABLET BY MOUTH TWICE DAILY FOR 7 DAYS BACTRIM DS 800-160 MG TABS SULFAMETHOXAZOLE-TRIMETHOPRIM Inactive BACTRIM DS 800-160 MG TABS one tablet twice a day for seven days BACTRIM DS 800-160 MG TABS SULFAMETHOXAZOLE-TRIMETHOPRIM Inactive MACROBID 100 MG CAP 1 cap by mouth twice daily MACROBID 100 MG CAP 1893509 NITROFURANTOIN MONOHYD MACRO Inactive JANUVIA 100 MG TABS Take 1 tab daily JANUVIA 100 MG TABS SITAGLIPTIN PHOSPHATE Inactive GLUCOTROL XL 5 MG [id number] one tablet daily GLUCOTROL XL 5 MG [id number] GLIPIZIDE Inactive BACTRIM DS 800-160 MG ORAL TABS 1 BID for 5 days BACTRIM DS 800-160 MG ORAL TABS SULFAMETHOXAZOLE-TRIMETHOPRIM Inactive DIFLUCAN 150 MG TAB 1 tablet by mouth daily DIFLUCAN 150 MG TAB 601805 FLUCONAZOLE Inactive MACRODANTIN 100 MG CAPS 1 capsule by mouth twice daily for seven days MACRODANTIN 100 MG CAPS 0662081 NITROFURANTOIN MACROCRYSTAL Inactive AMOXICILLIN 500 MG CAPS 2 po BID x 10 days AMOXICILLIN 500 MG CAPS 933734 AMOXICILLIN Inactive BACTRIM DS 800-160 MG TABS 1 po BID x 7 days BACTRIM DS 800-160 MG TABS SULFAMETHOXAZOLE-TRIMETHOPRIM Inactive CIPRO 250 MG TAB 1 tablet by mouth twice daily CIPRO 250 MG TAB 282172 CIPROFLOXACIN HCL Inactive MACROBID 100 MG CAP 1 cap by mouth twice daily MACROBID 100 MG CAP 5212983 NITROFURANTOIN MONOHYD MACRO Inactive BACTRIM DS TABS Take 1 po BID BACTRIM DS TABS SULFAMETHOXAZOLE-TRIMETHOPRIM TABS Inactive AMOXICILLIN 500 MG ORAL CAPS tid AMOXICILLIN 500 MG ORAL CAPS 530450 AMOXICILLIN Inactive CIPRO 250 MG TAB 1 tablet by mouth twice daily CIPRO 250 MG TAB 485920 CIPROFLOXACIN HCL Inactive Advance Directives Directive Description Start Date PERMISSION TO SHARE Immunizations Vaccine Administration Date Value Standard Description pneumococcal immunization administered Pneumovax 23 [CVX33] pneumococcal polysaccharide vaccine, 23 valent Seasonal influenza vaccine, injectable, containing preservative, for > 3 years old (Afluria, FluLaval, Fluzone, Fluvirin, Fluarix, Agriflu(>=18 yo)) Fluzone (>3 yrs.) [EQY074] Influenza, seasonal, injectable Vital Signs Date Name [...] Panel - Chemistry sodium, serum 138 mmol/L 063-180 9990/07/02 potassium, serum 4.5 mmol/L 3.5-5.2 chloride, serum [...] HGBA1C - Chemistry cholesterol, serum 147 mg/dL 149-653 1374/08/18 triglyceride, serum, fasting 242 mg/dL 30-200 HDL cholesterol, serum 36 mg/dL 32-96 LDL cholesterol, serum 63 mg/dL 0-130 sodium, serum 137 mmol/L 782-906 8783/08/18 potassium, serum 4.7 mmol/L 3.5-5.2 chloride, serum [...] 0.2 Encounters Code Encounter Date Provider Facility CPT-10138 Level 4 Est. Patient 09:54:20 CDT Nadir Hector MD [facility] CPT-25144 Level 2 Est. Patient 18:56:33 CDT Catalino Irene MD [facility] CPT-26513 Level 4 New Patient 14:59:23 CDT Catalino Irene MD [facility] CPT-41597 Level 3 Est. Patient 16:43:04 GRAPHICS ARTIST Nadir [facility] CPT-62493 Level 4 Est. Patient 14:21:01 GRAPHICS ARTIST Nadir H[facility] MD [facility] CPT-53359 Level 3 Est. Patient 16:41:34 CDT Nadir H[facility] MD [facility] CPT-93198 Level 4 Est. Patient 13:54:35 GRAPHICS ARTIST Nadir H[facility] MD [facility] CPT-65422 Level 3 Est. Patient 15:51:21 CDT Nadir H[facility] MD [facility] CPT-98981 Level 4 New Patient 15:58:26 CDT Catalino Irene MD [facility] CPT-69975 Level 4 Est. Patient 15:42:38 GRAPHICS ARTIST Nadir Hector MD [facility] Procedures Code Procedure Name Date Entry Date Standard Description CPT-20547 Urine Dip (Floor Use Only) 18:56:34 CDT CPT-06120 Urine Dip (Floor Use Only) 14:21:22 CDT CPT-J0561 Bicillin LA 1,200,000 u (PCN G Benzathine) 13:16:19 CDT CPT-12615 Abx/Therapy Injection 13:16:19 CDT CPT-10541 Urine Dip (Floor Use Only) 14:59:25 CDT CPT-15416 Bladder Scan 14:59:24 CDT CPT-51367 Cystoscopy 14:59:24 CDT CPT-42191 Abd single AP View 12:13:13 CDT CPT-000 Give Pneumovax 14:21:01 GRAPHICS ARTIST CPT-000 Give Appropriate Flu Vaccine 14:21:01 GRAPHICS ARTIST CPT-87714 Bone Density 08:41:23 GRAPHICS ARTIST CPT-000 Give Appropriate Flu Vaccine 13:54:35 GRAPHICS ARTIST CPT-000 Give Pneumovax 13:54:35 GRAPHICS ARTIST CPT-76694 Administration 2+ single or combination vaccines inc oral 14:01:24 GRAPHICS ARTIST CPT-46677 Administration single or combination vaccine inc oral 14 :01:24 GRAPHICS ARTIST CPT-02657 Influenza High Dose age 65+ 14:01:24 GRAPHICS ARTIST CPT-07665 Pneumovax 14:01:24 GRAPHICS ARTIST CPT-38557 Venipuncture Draw Fee 10:36:48 CDT CPT-000 Give Appropriate Flu Vaccine 15:20:11 GRAPHICS ARTIST CPT-90310 Administration single or combination vaccine inc oral 15 :50:33 GRAPHICS ARTIST CPT-66927 Influenza High Dose age 65+ 15:50:33 GRAPHICS ARTIST CPT-60923 LS spine AP and Lat 15:30:05 GRAPHICS ARTIST CPT-37776 Hip comp min 2V 15:30:05 GRAPHICS ARTIST CPT-09023 Postop F/U Visit 17:28:18 CDT CPT-OV Office Visit 15:04:38 CDT CPT-83432 Bladder Scan 15:58:26 CDT CPT-29438 Cystoscopy 15:58:26 CDT CPT-OV Office Visit 16:15:09 CDT CPT-000 Give Appropriate Flu Vaccine 16:33:10 GRAPHICS ARTIST CPT-12771 Administration single or combination vaccine inc oral 19 :21:12 GRAPHICS ARTIST CPT-40635 Influenza split virus > age 3 19:21:12 GRAPHICS ARTIST
--- OUTSIDE RECORDS SUMMARY | 2017-07-23 09:42 | XMS REPORT | Clinical Summary ---
Author Author Admin, IMTIAZ Organization [facility] Address Unknown Phone Unavailable Allergies, [...] Generic Name NDC Status Provider Patient Instruction CIPRO 250 MG TAB 1 tablet by mouth twice daily CIPROFLOXACIN HCL 07242129706 Active Ro Meyer Active BACTRIM DS 800-160 MG ORAL TABS 1 BID for 5 days SULFAMETHOXAZOLE-TRIMETHOPRIM 16186358849 Active Catalino Irene MD Active AMOXICILLIN 500 MG ORAL CAPS tid AMOXICILLIN 30960099074 No Longer Active Catalino Irene MD Active BACTRIM DS TABS Take 1 po BID SULFAMETHOXAZOLE- TRIMETHOPRIM TABS 18248338306 No Longer Active Pam ALEAH GomezN Active MACROBID 100 MG CAP 1 cap by mouth twice daily NITROFURANTOIN MONOHYD MACRO 63007405277 No Longer Active Pam Gomez CORE STRIPPER Active DIFLUCAN 150 MG TAB 1 tablet by mouth daily FLUCONAZOLE 44122962943 Active Pam Gomez CORE STRIPPER Active CIPRO 250 MG TAB 1 tablet by mouth twice daily CIPROFLOXACIN HCL 70145303310 No Longer Active Pam Gomez CORE STRIPPER Active JANUVIA 100 MG ORAL TABS 1 daily SITAGLIPTIN PHOSPHATE 87865192821 Active Nadir Hector MD Active GLUCOTROL XL 5 MG [id number] one tablet daily GLIPIZIDE 67368400428 No Longer Active Nadir Hector MD Active BACTRIM DS 800-160 MG TABS 1 po BID x 7 days SULFAMETHOXAZOLE-TRIMETHOPRIM 16812931006 No Longer Active Jamal Burrell MD Active FOSAMAX 70 MG TABS 1 po qweek. Take 30min prior to first food/drink. Avoid lying down x 1 hour. ALENDRONATE SODIUM 35276846293 Active Nadir Hector MD Active AMOXICILLIN 500 MG CAPS 2 po BID x 10 days AMOXICILLIN 57247008271 No Longer Active Nadir Hector MD Active JANUVIA 100 MG TABS 1 tablet by mouth daily SITAGLIPTIN PHOSPHATE 35750795930 No Longer Active Nadir Hector MD Active JANUVIA 100 MG TABS Take 1 tab daily SITAGLIPTIN PHOSPHATE 17499197267 No Longer Active Sharon Nuñez Active MACROBID 100 MG CAP 1 cap by mouth twice daily NITROFURANTOIN MONOHYD MACRO 37578808939 No Longer Active Crystal Fernández APRN Active MACRODANTIN 100 MG CAPS 1 capsule by mouth twice daily for seven days NITROFURANTOIN MACROCRYSTAL 39887848915 No Longer Active Ro Yang RN Active BACTRIM DS 800-160 MG TABS one tablet twice a day for seven days SULFAMETHOXAZOLE-TRIMETHOPRIM 77990520138 No Longer Active Sancho ANIYA CamejoFiorella Active BACTRIM DS 800-160 MG TABS TAKE ONE TABLET BY MOUTH TWICE DAILY FOR 7 DAYS SULFAMETHOXAZOLE-TRIMETHOPRIM 31294376094 No Longer Active Viviana Lal RN Active CIPRO 250 MG TABS TAKE ONE TABLET BY MOUTH TWICE DAILY FOR 5 DAYS CIPROFLOXACIN HCL 42109371102 No Longer Active Viviana Lal RN Active FLEXERIL 10 MG TABS 1/2 TO 1 TABLET Q12H NEEDED CYCLOBENZAPRINE HCL 70901642235 No Longer Active Viviana Lal RN Active AMLODIPINE BESYLATE 5 MG TABS 1 1/2 daily AMLODIPINE BESYLATE 10401758038 Active Nadir Hector MD Active ONGLYZA 5 MG TABS 1 QAM SAXAGLIPTIN HCL 02119528619 No Longer Active Nadir Hector MD Active AMLODIPINE BESYLATE 5 MG TABS 1 1/2 TABLET DAILY AMLODIPINE BESYLATE 15924855294 No Longer Active Nadir Hector MD Active LORTAB 5-500 MG TABS 1 BY MOUTH Q6H NEEDED HYDROCODONE- ACETAMINOPHEN 82219058124 No Longer Active Nadir Hector MD Active ACTOS 45 MG TABS 1 QD PIOGLITAZONE HCL 90897024864 No Longer Active Nadir Hector MD Active BACTRIM DS 800-160 MG TAB 1 tab by mouth twice daily TRIMETHOPRIM-SULFAMETHOXAZOLE 24155718750 No Longer Active Nadir Hector MD Active CALCIUM + D 600-200 MG-UNIT TABS 1 TABLET TWO TIMES A DAY CALCIUM CARBONATE-VITAMIN D 09217267415 Active Ro Yang RN Active METOPROLOL SUCCINATE 25 MG [id number] 1 QAM METOPROLOL SUCCINATE 59271349575 Active Nadir Hector MD Active AMARYL 4 MG TABS 1 QD GLIMEPIRIDE 34573023123 Active Nadir Hector MD Active LOVASTATIN 40 MG TABS 1 QD LOVASTATIN 80220948834 Active Nadir Hector MD Active GLUCOPHAGE 1000 MG TABS 1 TABLET TWO TIMES A DAY METFORMIN HCL 74325191333 Active Nadir Hector MD Active MAXZIDE-25 37.5-25 MG TABS 1 QD TRIAMTERENE-HCTZ 47829049290 Active Nadir Hector MD Active ACCUPRIL 40 MG TABS 1 QD QUINAPRIL HCL 93441665860 Active Nadir Hector MD Active BACTRIM DS 800-160 MG TAB 1 tab by mouth twice daily BACTRIM DS 800-160 MG TAB TRIMETHOPRIM-SULFAMETHOXAZOLE Inactive ACTOS 45 MG TABS 1 QD ACTOS 45 MG TABS 666798 PIOGLITAZONE HCL Inactive LORTAB 5-500 MG TABS 1 BY MOUTH Q6H NEEDED LORTAB 5-500 MG TABS HYDROCODONE-ACETAMINOPHEN Inactive AMLODIPINE BESYLATE 5 MG TABS 1 1/2 TABLET DAILY AMLODIPINE BESYLATE 5 MG TABS 774710 AMLODIPINE BESYLATE Inactive ONGLYZA 5 MG TABS 1 QAM ONGLYZA 5 MG TABS SAXAGLIPTIN HCL Inactive FLEXERIL 10 MG TABS 1/2 TO 1 TABLET Q12H NEEDED FLEXERIL 10 MG TABS CYCLOBENZAPRINE HCL Inactive CIPRO 250 MG TABS TAKE ONE TABLET BY MOUTH TWICE DAILY FOR 5 DAYS CIPRO 250 MG TABS 691773 CIPROFLOXACIN HCL Inactive BACTRIM DS 800-160 MG TABS TAKE ONE TABLET BY MOUTH TWICE DAILY FOR 7 DAYS BACTRIM DS 800-160 MG TABS SULFAMETHOXAZOLE-TRIMETHOPRIM Inactive BACTRIM DS 800-160 MG TABS one tablet twice a day for seven days BACTRIM DS 800-160 MG TABS SULFAMETHOXAZOLE-TRIMETHOPRIM Inactive MACROBID 100 MG CAP 1 cap by mouth twice daily MACROBID 100 MG CAP 8419143 NITROFURANTOIN MONOHYD MACRO Inactive JANUVIA 100 MG TABS Take 1 tab daily JANUVIA 100 MG TABS SITAGLIPTIN PHOSPHATE Inactive GLUCOTROL XL 5 MG [id number] one tablet daily GLUCOTROL XL 5 MG [id number] GLIPIZIDE Inactive MACRODANTIN 100 MG CAPS 1 capsule by mouth twice daily for seven days MACRODANTIN 100 MG CAPS 2250277 NITROFURANTOIN MACROCRYSTAL Inactive AMOXICILLIN 500 MG CAPS 2 po BID x 10 days AMOXICILLIN 500 MG CAPS 931228 AMOXICILLIN Inactive BACTRIM DS 800-160 MG TABS 1 po BID x 7 days BACTRIM DS 800-160 MG TABS SULFAMETHOXAZOLE-TRIMETHOPRIM Inactive CIPRO 250 MG TAB 1 tablet by mouth twice daily CIPRO 250 MG TAB 220949 CIPROFLOXACIN HCL Inactive MACROBID 100 MG CAP 1 cap by mouth twice daily MACROBID 100 MG CAP 0643883 NITROFURANTOIN MONOHYD MACRO Inactive BACTRIM DS TABS Take 1 po BID BACTRIM DS TABS SULFAMETHOXAZOLE-TRIMETHOPRIM TABS Inactive AMOXICILLIN 500 MG ORAL CAPS tid AMOXICILLIN 500 MG ORAL CAPS 319830 AMOXICILLIN Inactive Advance Directives Directive Description Start Date PERMISSION TO SHARE Immunizations Vaccine Administration Date Value Standard Description pneumococcal immunization administered Pneumovax 23 [CVX33] pneumococcal polysaccharide vaccine, 23 valent Seasonal influenza vaccine, injectable, containing preservative, for > 3 years old (Afluria, FluLaval, Fluzone, Fluvirin, Fluarix, Agriflu(>=18 yo)) Fluzone (>3 yrs.) [YDR154] Influenza, seasonal, injectable Vital Signs Date Name [...] Panel - Chemistry sodium, serum 138 mmol/L 300-146 4822/07/02 potassium, serum 4.5 mmol/L 3.5-5.2 chloride, serum [...] Lab Report: Lipid Panel, Comp. Metabolic Panel, [facility] - Chemistry cholesterol, serum 147 mg/dL 354-680 4419/08/18 triglyceride, serum, fasting 242 mg/dL 30-200 HDL cholesterol, serum 36 mg/dL 32-96 LDL cholesterol, serum 63 mg/dL 0-130 sodium, serum 137 mmol/L 779-897 9499/08/18 potassium, serum 4.7 mmol/L 3.5-5.2 chloride, serum [...] 6.5 Encounters Code Encounter Date Provider Facility CPT-44607 Level 2 Est. Patient 18:56:33 CDT Catalino Irene MD [facility] CPT-34722 Level 4 New Patient 14:59:23 CDT Catalino Irene MD [facility] CPT-73832 Level 3 Est. Patient 16:43:04 WEB SERVICES DEVELOPER Nadir Hector MD [facility] CPT-35800 Level 4 Est. Patient 14:21:01 WEB SERVICES DEVELOPER Nadir Hector MD [facility] CPT-03495 Level 3 Est. Patient 16:41:34 CDT Nadir Hector MD [facility] CPT-26368 Level 4 Est. Patient 13:54:35 WEB SERVICES DEVELOPER Nadir Hector MD [facility] CPT-31690 Level 3 Est. Patient 15:51:21 CDT Nadir Hector MD [facility] CPT-15354 Level 4 New Patient 15:58:26 CDT Catalino Irene MD [facility] CPT-22080 Level 4 Est. Patient 15:42:38 WEB SERVICES DEVELOPER Nadir eHctor MD [facility] Procedures Code Procedure Name Date Entry Date Standard Description CPT-30884 Urine Dip (Floor Use Only) 18:56:34 CDT CPT-49672 Urine Dip (Floor Use Only) 14:21:22 CDT CPT-J0561 Bicillin LA 1,200,000 u (PCN G Benzathine) 13:16:19 CDT CPT-81809 Abx/Therapy Injection 13:16:19 CDT CPT-86932 Urine Dip (Floor Use Only) 14:59:25 CDT CPT-18114 Bladder Scan 14:59:24 CDT CPT-52309 Cystoscopy 14:59:24 CDT CPT-05980 Abd single AP View 12:13:13 CDT CPT-000 Give Pneumovax 14:21:01 WEB SERVICES DEVELOPER CPT-000 Give Appropriate Flu Vaccine 14:21:01 WEB SERVICES DEVELOPER CPT-20500 Bone Density 08:41:23 WEB SERVICES DEVELOPER CPT-000 Give Appropriate Flu Vaccine 13:54:35 WEB SERVICES DEVELOPER CPT-000 Give Pneumovax 13:54:35 WEB SERVICES DEVELOPER CPT-22529 Administration 2+ single or combination vaccines inc oral 14:01:24 WEB SERVICES DEVELOPER CPT-88747 Administration single or combination vaccine inc oral 14 :01:24 WEB SERVICES DEVELOPER CPT-95394 Influenza High Dose age 65+ 14:01:24 WEB SERVICES DEVELOPER CPT-17652 Pneumovax 14:01:24 WEB SERVICES DEVELOPER CPT-43589 Venipuncture Draw Fee 10:36:48 CDT CPT-000 Give Appropriate Flu Vaccine 15:20:11 WEB SERVICES DEVELOPER CPT-06371 Administration single or combination vaccine inc oral 15 :50:33 WEB SERVICES DEVELOPER CPT-31861 Influenza High Dose age 65+ 15:50:33 WEB SERVICES DEVELOPER CPT-14606 LS spine AP and Lat 15:30:05 WEB SERVICES DEVELOPER CPT-51747 Hip comp min 2V 15:30:05 WEB SERVICES DEVELOPER CPT-22145 Postop F/U Visit 17:28:18 CDT CPT-OV Office Visit 15:04:38 CDT CPT-42829 Bladder Scan 15:58:26 CDT CPT-78100 Cystoscopy 15:58:26 CDT CPT-OV Office Visit 16:15:09 CDT CPT-000 Give Appropriate Flu Vaccine 16:33:10 WEB SERVICES DEVELOPER CPT-36380 Administration single or combination vaccine inc oral 19 :21:12 WEB SERVICES DEVELOPER CPT-90232 Influenza split virus > age 3 19:21:12 WEB SERVICES DEVELOPER
--- OUTSIDE RECORDS SUMMARY | 2017-07-23 09:43 | XMS REPORT | Clinical Summary ---
Author Author Admin, IMTIAZ Organization [facility] Address Unknown Phone Unavailable Allergies, Adverse Reactions, Alerts Allergy Name Reaction Description Start Date Severity Status Provider No Known Allergies Dayanajayant Sánchezley Conditions or Problems Problem Name Problem Code Onset Date Status Entry Date Provider Comment Standard Description Annotate HYPERTENSION 401.9 Active Nadir Hecotr MD Unspecified essential hypertension DIABETES MELLITUS 250.00 Active Nadir Hector MD Diabetes mellitus without mention of complication, type II or unspecified type, not stated as uncontrolled HYPERLIPIDEMIA 272.4 Active Nadir Hector MD Other and unspecified hyperlipidemia HEALTH MAINTENANCE EXAM V70.0 Active Nadir Hector MD Routine general medical examination at a [facility] care facility PERIPHERAL NEUROPATHY 356.9 Active [...] tablet by mouth twice daily CIPROFLOXACIN HCL 49832067538 Active Ro Meyer Active BACTRIM DS 800-160 MG ORAL TABS 1 BID for 5 days SULFAMETHOXAZOLE-TRIMETHOPRIM 39409183892 Active Catalino Irene MD Active AMOXICILLIN 500 MG ORAL CAPS tid AMOXICILLIN 58774479862 No Longer Active Catalino Irene MD Active BACTRIM DS TABS Take 1 po BID SULFAMETHOXAZOLE- TRIMETHOPRIM TABS 06152650132 No Longer Active Pam ALEAH GomezN Active MACROBID 100 MG CAP 1 cap by mouth twice daily NITROFURANTOIN MONOHYD MACRO 22608375353 No Longer Active Pam Gomez CLINICAL RESEARCH PHYSICIAN Active DIFLUCAN 150 MG TAB 1 tablet by mouth daily FLUCONAZOLE 95074503653 Active Pam Gomez CLINICAL RESEARCH PHYSICIAN Active CIPRO 250 MG TAB 1 tablet by mouth twice daily CIPROFLOXACIN HCL 57952879401 No Longer Active Pam Gomez CLINICAL RESEARCH PHYSICIAN Active JANUVIA 100 MG ORAL TABS 1 daily SITAGLIPTIN PHOSPHATE 32141104150 Active Nadir Hector MD Active GLUCOTROL XL 5 MG [id number] one tablet daily GLIPIZIDE 22063513767 No Longer Active Nadir Hector MD Active BACTRIM DS 800-160 MG TABS 1 po BID x 7 days SULFAMETHOXAZOLE-TRIMETHOPRIM 91352773255 No Longer Active Jamal Burrell MD Active FOSAMAX 70 MG TABS 1 po qweek. Take 30min prior to first food/drink. Avoid lying down x 1 hour. ALENDRONATE SODIUM 24775462491 Active Nadir Hector MD Active AMOXICILLIN 500 MG CAPS 2 po BID x 10 days AMOXICILLIN 21114023323 No Longer Active Nadir Hector MD Active JANUVIA 100 MG TABS 1 tablet by mouth daily SITAGLIPTIN PHOSPHATE 60615852274 No Longer Active Nadir Hector MD Active JANUVIA 100 MG TABS Take 1 tab daily SITAGLIPTIN PHOSPHATE 32278299502 No Longer Active Sharon Nuñez Active MACROBID 100 MG CAP 1 cap by mouth twice daily NITROFURANTOIN MONOHYD MACRO 72861772498 No Longer Active Crystal Fernández APRN Active MACRODANTIN 100 MG CAPS 1 capsule by mouth twice daily for seven days NITROFURANTOIN MACROCRYSTAL 91872431790 No Longer Active Ro Ynag RN Active BACTRIM DS 800-160 MG TABS one tablet twice a day for seven days SULFAMETHOXAZOLE-TRIMETHOPRIM 62205350230 No Longer Active Sancho ANIYA CamejoFiorella Active BACTRIM DS 800-160 MG TABS TAKE ONE TABLET BY MOUTH TWICE DAILY FOR 7 DAYS SULFAMETHOXAZOLE-TRIMETHOPRIM 86671978351 No Longer Active Viviana Lal RN Active CIPRO 250 MG TABS TAKE ONE TABLET BY MOUTH TWICE DAILY FOR 5 DAYS CIPROFLOXACIN HCL 53870554973 No Longer Active Viviana Lal RN Active FLEXERIL 10 MG TABS 1/2 TO 1 TABLET Q12H NEEDED CYCLOBENZAPRINE HCL 98670578321 No Longer Active Viviana Lal RN Active AMLODIPINE BESYLATE 5 MG TABS 1 1/2 daily AMLODIPINE BESYLATE 77666494900 Active Nadir Hector MD Active ONGLYZA 5 MG TABS 1 QAM SAXAGLIPTIN HCL 65673242940 No Longer Active Nadir Hector MD Active AMLODIPINE BESYLATE 5 MG TABS 1 1/2 TABLET DAILY AMLODIPINE BESYLATE 80880909387 No Longer Active Nadir Hector MD Active LORTAB 5-500 MG TABS 1 BY MOUTH Q6H NEEDED HYDROCODONE- ACETAMINOPHEN 43924231299 No Longer Active Nadir Hector MD Active ACTOS 45 MG TABS 1 QD PIOGLITAZONE HCL 22337231762 No Longer Active Nadir Hector MD Active BACTRIM DS 800-160 MG TAB 1 tab by mouth twice daily TRIMETHOPRIM-SULFAMETHOXAZOLE 73030894687 No Longer Active Nadir Hector MD Active CALCIUM + D 600-200 MG-UNIT TABS 1 TABLET TWO TIMES A DAY CALCIUM CARBONATE-VITAMIN D 03651715650 Active Ro Yang RN Active METOPROLOL SUCCINATE 25 MG [id number] 1 QAM METOPROLOL SUCCINATE 93958724996 Active Nadir Hector MD Active AMARYL 4 MG TABS 1 QD GLIMEPIRIDE 84338819412 Active Nadir Hector MD Active LOVASTATIN 40 MG TABS 1 QD LOVASTATIN 24093621074 Active Nadir Hector MD Active GLUCOPHAGE 1000 MG TABS 1 TABLET TWO TIMES A DAY METFORMIN HCL 32632489132 Active Nadir Hector MD Active MAXZIDE-25 37.5-25 MG TABS 1 QD TRIAMTERENE-HCTZ 58461250408 Active Nadir Hector MD Active ACCUPRIL 40 MG TABS 1 QD QUINAPRIL HCL 80922499763 Active Nadir Hector MD Active BACTRIM DS 800-160 MG TAB 1 tab by mouth twice daily BACTRIM DS 800-160 MG TAB TRIMETHOPRIM-SULFAMETHOXAZOLE Inactive ACTOS 45 MG TABS 1 QD ACTOS 45 MG TABS 250834 PIOGLITAZONE HCL Inactive LORTAB 5-500 MG TABS 1 BY MOUTH Q6H NEEDED LORTAB 5-500 MG TABS HYDROCODONE-ACETAMINOPHEN Inactive AMLODIPINE BESYLATE 5 MG TABS 1 1/2 TABLET DAILY AMLODIPINE BESYLATE 5 MG TABS 526783 AMLODIPINE BESYLATE Inactive ONGLYZA 5 MG TABS 1 QAM ONGLYZA 5 MG TABS SAXAGLIPTIN HCL Inactive FLEXERIL 10 MG TABS 1/2 TO 1 TABLET Q12H NEEDED FLEXERIL 10 MG TABS CYCLOBENZAPRINE HCL Inactive CIPRO 250 MG TABS TAKE ONE TABLET BY MOUTH TWICE DAILY FOR 5 DAYS CIPRO 250 MG TABS 750061 CIPROFLOXACIN HCL Inactive BACTRIM DS 800-160 MG TABS TAKE ONE TABLET BY MOUTH TWICE DAILY FOR 7 DAYS BACTRIM DS 800-160 MG TABS SULFAMETHOXAZOLE-TRIMETHOPRIM Inactive BACTRIM DS 800-160 MG TABS one tablet twice a day for seven days BACTRIM DS 800-160 MG TABS SULFAMETHOXAZOLE-TRIMETHOPRIM Inactive MACROBID 100 MG CAP 1 cap by mouth twice daily MACROBID 100 MG CAP 7520590 NITROFURANTOIN MONOHYD MACRO Inactive JANUVIA 100 MG TABS Take 1 tab daily JANUVIA 100 MG TABS SITAGLIPTIN PHOSPHATE Inactive GLUCOTROL XL 5 MG [id number] one tablet daily GLUCOTROL XL 5 MG [id number] GLIPIZIDE Inactive MACRODANTIN 100 MG CAPS 1 capsule by mouth twice daily for seven days MACRODANTIN 100 MG CAPS 3358714 NITROFURANTOIN MACROCRYSTAL Inactive AMOXICILLIN 500 MG CAPS 2 po BID x 10 days AMOXICILLIN 500 MG CAPS 134155 AMOXICILLIN Inactive BACTRIM DS 800-160 MG TABS 1 po BID x 7 days BACTRIM DS 800-160 MG TABS SULFAMETHOXAZOLE-TRIMETHOPRIM Inactive CIPRO 250 MG TAB 1 tablet by mouth twice daily CIPRO 250 MG TAB 528926 CIPROFLOXACIN HCL Inactive MACROBID 100 MG CAP 1 cap by mouth twice daily MACROBID 100 MG CAP 2981796 NITROFURANTOIN MONOHYD MACRO Inactive BACTRIM DS TABS Take 1 po BID BACTRIM DS TABS SULFAMETHOXAZOLE-TRIMETHOPRIM TABS Inactive AMOXICILLIN 500 MG ORAL CAPS tid AMOXICILLIN 500 MG ORAL CAPS 678155 AMOXICILLIN Inactive Advance Directives Directive Description Start Date PERMISSION TO SHARE Immunizations Vaccine Administration Date Value Standard Description pneumococcal immunization administered Pneumovax 23 [CVX33] pneumococcal polysaccharide vaccine, 23 valent Seasonal influenza vaccine, injectable, containing preservative, for > 3 years old (Afluria, FluLaval, Fluzone, Fluvirin, Fluarix, Agriflu(>=18 yo)) Fluzone (>3 yrs.) [AGF254] Influenza, seasonal, injectable Vital Signs Date Name [...] Panel - Chemistry sodium, serum 138 mmol/L 549-780 9507/07/02 potassium, serum 4.5 mmol/L 3.5-5.2 chloride, serum [...] Lab Report: Lipid Panel, Comp. Metabolic Panel, [facility] - Chemistry cholesterol, serum 147 mg/dL 826-271 5755/08/18 triglyceride, serum, fasting 242 mg/dL 30-200 HDL cholesterol, serum 36 mg/dL 32-96 LDL cholesterol, serum 63 mg/dL 0-130 sodium, serum 137 mmol/L 353-834 8453/08/18 potassium, serum 4.7 mmol/L 3.5-5.2 chloride, serum [...] 6.5 Encounters Code Encounter Date Provider Facility CPT-05242 Level 2 Est. Patient 18:56:33 CDT Catalino Irene MD [facility] CPT-43782 Level 4 New Patient 14:59:23 CDT Catalino Irene MD [facility] CPT-66085 Level 3 Est. Patient 16:43:04 SECURITIES AND REAL ESTATE DIRECTOR Nadir Hector MD [facility] CPT-71671 Level 4 Est. Patient 14:21:01 SECURITIES AND REAL ESTATE DIRECTOR Nadir Hector MD [facility] CPT-13159 Level 3 Est. Patient 16:41:34 CDT Nadir Hector MD [facility] CPT-41169 Level 4 Est. Patient 13:54:35 SECURITIES AND REAL ESTATE DIRECTOR Nadir Hector MD [facility] CPT-17765 Level 3 Est. Patient 15:51:21 CDT Nadir Hector MD [facility] CPT-43999 Level 4 New Patient 15:58:26 CDT Catalino Irene MD [facility] CPT-73218 Level 4 Est. Patient 15:42:38 SECURITIES AND REAL ESTATE DIRECTOR Nadir Hector MD [facility] Procedures Code Procedure Name Date Entry Date Standard Description CPT-13983 Urine Dip (Floor Use Only) 18:56:34 CDT CPT-51166 Urine Dip (Floor Use Only) 14:21:22 CDT CPT-J0561 Bicillin LA 1,200,000 u (PCN G Benzathine) 13:16:19 CDT CPT-84164 Abx/Therapy Injection 13:16:19 CDT CPT-44377 Urine Dip (Floor Use Only) 14:59:25 CDT CPT-18271 Bladder Scan 14:59:24 CDT CPT-41615 Cystoscopy 14:59:24 CDT CPT-71095 Abd single AP View 12:13:13 CDT CPT-000 Give Pneumovax 14:21:01 SECURITIES AND REAL ESTATE DIRECTOR CPT-000 Give Appropriate Flu Vaccine 14:21:01 SECURITIES AND REAL ESTATE DIRECTOR CPT-64679 Bone Density 08:41:23 SECURITIES AND REAL ESTATE DIRECTOR CPT-000 Give Appropriate Flu Vaccine 13:54:35 SECURITIES AND REAL ESTATE DIRECTOR CPT-000 Give Pneumovax 13:54:35 SECURITIES AND REAL ESTATE DIRECTOR CPT-08332 Administration 2+ single or combination vaccines inc oral 14:01:24 SECURITIES AND REAL ESTATE DIRECTOR CPT-12367 Administration single or combination vaccine inc oral 14 :01:24 SECURITIES AND REAL ESTATE DIRECTOR CPT-81996 Influenza High Dose age 65+ 14:01:24 SECURITIES AND REAL ESTATE DIRECTOR CPT-80990 Pneumovax 14:01:24 SECURITIES AND REAL ESTATE DIRECTOR CPT-40967 Venipuncture Draw Fee 10:36:48 CDT CPT-000 Give Appropriate Flu Vaccine 15:20:11 SECURITIES AND REAL ESTATE DIRECTOR CPT-14209 Administration single or combination vaccine inc oral 15 :50:33 SECURITIES AND REAL ESTATE DIRECTOR CPT-84923 Influenza High Dose age 65+ 15:50:33 SECURITIES AND REAL ESTATE DIRECTOR CPT-32789 LS spine AP and Lat 15:30:05 SECURITIES AND REAL ESTATE DIRECTOR CPT-65425 Hip comp min 2V 15:30:05 SECURITIES AND REAL ESTATE DIRECTOR CPT-65003 Postop F/U Visit 17:28:18 CDT CPT-OV Office Visit 15:04:38 CDT CPT-55848 Bladder Scan 15:58:26 CDT CPT-39981 Cystoscopy 15:58:26 CDT CPT-OV Office Visit 16:15:09 CDT CPT-000 Give Appropriate Flu Vaccine 16:33:10 SECURITIES AND REAL ESTATE DIRECTOR CPT-48942 Administration single or combination vaccine inc oral 19 :21:12 SECURITIES AND REAL ESTATE DIRECTOR CPT-10745 Influenza split virus > age 3 19:21:12 SECURITIES AND REAL ESTATE DIRECTOR
--- OUTSIDE RECORDS SUMMARY | 2017-07-23 09:44 | XMS REPORT | Clinical Summary ---
Author Author Admin, IMTIAZ Organization [facility] Address Unknown Phone Unavailable Allergies, [...] MD Routine general medical examination at a [facility] care facility PERIPHERAL NEUROPATHY 356.9 Active Nadir Hector MD Unspecified idiopathic peripheral neuropathy Right foot HEADACHE, CHRONIC 784.0 Active Nadir Hector MD Headache DYSURIA 788.1 Active Nadir Hector MD Dysuria UTI'S, HX OF V13.00 Active Nadir Hector MD Personal history of unspecified urinary disorder MAMMOGRAM, ABNORMAL 793.80 Active Nadir Hecotr MD Abnormal mammogram, unspecified COLONIC POLYPS, HX [...] Take 1 po BID SULFAMETHOXAZOLE- TRIMETHOPRIM TABS 37443757519 No Longer Active Pam Jason RN NURSERY Active MACROBID 100 MG CAP 1 cap by mouth twice daily NITROFURANTOIN MONOHYD MACRO 97269201395 No Longer Active Pam Jason RN NURSERY Active DIFLUCAN 150 MG TAB 1 tablet by mouth daily FLUCONAZOLE 95773741176 Active Pam Jason RN NURSERY Active CIPRO 250 MG TAB 1 tablet by mouth twice daily CIPROFLOXACIN HCL 80692853335 No Longer Active Pam Jason RN NURSERY Active JANUVIA 100 MG ORAL TABS 1 daily SITAGLIPTIN PHOSPHATE 88255750901 Active Nadir Hector MD Active GLUCOTROL XL 5 MG [id number] one tablet daily GLIPIZIDE 12638697093 No Longer Active Nadir Hector MD Active BACTRIM DS 800-160 MG TABS 1 po BID x 7 days SULFAMETHOXAZOLE-TRIMETHOPRIM 86705260456 No Longer Active Jamal Burrell MD Active FOSAMAX 70 MG TABS 1 po qweek. Take 30min prior to first food/drink. Avoid lying down x 1 hour. ALENDRONATE SODIUM 62173510452 Active Nadir Hector MD Active AMOXICILLIN 500 MG CAPS 2 po BID x 10 days AMOXICILLIN 46732934864 No Longer Active Nadir Hector MD Active JANUVIA 100 MG TABS 1 tablet by mouth daily SITAGLIPTIN PHOSPHATE 00206766802 No Longer Active Nadir Hector MD Active JANUVIA 100 MG TABS Take 1 tab daily SITAGLIPTIN PHOSPHATE 28643588790 No Longer Active Sharon Nuñez Active MACROBID 100 MG CAP 1 cap by mouth twice daily NITROFURANTOIN MONOHYD MACRO 22330263974 No Longer Active Crystal Fernández APRN Active MACRODANTIN 100 MG CAPS 1 capsule by mouth twice daily for seven days NITROFURANTOIN MACROCRYSTAL 30211752416 No Longer Active Ro Yang RN Active BACTRIM DS 800-160 MG TABS one tablet twice a day for seven days SULFAMETHOXAZOLE-TRIMETHOPRIM 27596213507 No Longer Active HEMANTH Griffin Active BACTRIM DS 800-160 MG TABS TAKE ONE TABLET BY MOUTH TWICE DAILY FOR 7 DAYS SULFAMETHOXAZOLE-TRIMETHOPRIM 66128545451 No Longer Active Viviana Lal RN Active CIPRO 250 MG TABS TAKE ONE TABLET BY MOUTH TWICE DAILY FOR 5 DAYS CIPROFLOXACIN HCL 14119158801 No Longer Active Viviana Lal RN Active FLEXERIL 10 MG TABS 1/2 TO 1 TABLET Q12H NEEDED CYCLOBENZAPRINE HCL 74315937632 No Longer Active Viviana Lal RN Active AMLODIPINE BESYLATE 5 MG TABS 1 1/2 daily AMLODIPINE BESYLATE 01172236737 Active Nadir Hector MD Active ONGLYZA 5 MG TABS 1 QAM SAXAGLIPTIN HCL 01595622707 No Longer Active Nadir Hector MD Active AMLODIPINE BESYLATE 5 MG TABS 1 1/2 TABLET DAILY AMLODIPINE BESYLATE 14740700729 No Longer Active Nadir Hector MD Active LORTAB 5-500 MG TABS 1 BY MOUTH Q6H NEEDED HYDROCODONE- ACETAMINOPHEN 39405549858 No Longer Active Nadir Hector MD Active ACTOS 45 MG TABS 1 QD PIOGLITAZONE HCL 23801578291 No Longer Active Nadir Hector MD Active BACTRIM DS 800-160 MG TAB 1 tab by mouth twice daily TRIMETHOPRIM-SULFAMETHOXAZOLE 84698651696 No Longer Active Nadir Hector MD Active CALCIUM + D 600-200 MG-UNIT TABS 1 TABLET TWO TIMES A DAY CALCIUM CARBONATE-VITAMIN D 01352263224 Active Ro Yang RN Active METOPROLOL SUCCINATE 25 MG [id number] 1 QAM METOPROLOL SUCCINATE 93057629418 Active Nadir Hector MD Active AMARYL 4 MG TABS 1 QD GLIMEPIRIDE 21489794262 Active Nadir Hector MD Active LOVASTATIN 40 MG TABS 1 QD LOVASTATIN 22901904138 Active Nadir Hector MD Active GLUCOPHAGE 1000 MG TABS 1 TABLET TWO TIMES A DAY METFORMIN HCL 80953177050 Active Nadir Hector MD Active MAXZIDE-25 37.5-25 MG TABS 1 QD TRIAMTERENE-HCTZ 60406373166 Active Nadir Hector MD Active ACCUPRIL 40 MG TABS 1 QD QUINAPRIL HCL 84151027904 Active Nadir Hector MD Active BACTRIM DS 800-160 MG TAB 1 tab by mouth twice daily BACTRIM DS 800-160 MG TAB TRIMETHOPRIM-SULFAMETHOXAZOLE Inactive ACTOS 45 MG TABS 1 QD ACTOS 45 MG TABS 612837 PIOGLITAZONE HCL Inactive LORTAB 5-500 MG TABS 1 BY MOUTH Q6H NEEDED LORTAB 5-500 MG TABS HYDROCODONE-ACETAMINOPHEN Inactive AMLODIPINE BESYLATE 5 MG TABS 1 1/2 TABLET DAILY AMLODIPINE BESYLATE 5 MG TABS 172927 AMLODIPINE BESYLATE Inactive ONGLYZA 5 MG TABS [...] mouth twice daily MACROBID 100 MG CAP 887041 NITROFURANTOIN MONOHYD MACRO Inactive JANUVIA 100 MG TABS Take 1 tab daily JANUVIA 100 MG TABS SITAGLIPTIN PHOSPHATE Inactive GLUCOTROL XL 5 MG [id number] one tablet daily GLUCOTROL XL 5 MG [id number] GLIPIZIDE Inactive MACRODANTIN 100 MG CAPS 1 capsule by mouth twice daily for seven days MACRODANTIN 100 MG CAPS 526619 NITROFURANTOIN MACROCRYSTAL Inactive AMOXICILLIN 500 MG CAPS 2 po BID x 10 days AMOXICILLIN 500 MG CAPS 754708 AMOXICILLIN Inactive BACTRIM DS 800-160 MG TABS 1 po BID x 7 days BACTRIM DS 800-160 MG TABS SULFAMETHOXAZOLE-TRIMETHOPRIM Inactive CIPRO 250 MG TAB 1 tablet by mouth twice daily CIPRO 250 MG TAB 663327 CIPROFLOXACIN HCL Inactive MACROBID 100 MG CAP 1 cap by mouth twice daily MACROBID 100 MG CAP 904214 NITROFURANTOIN MONOHYD MACRO Inactive BACTRIM DS TABS [...] Fluvirin, Fluarix, Agriflu(>=18 yo)) Fluzone (>3 yrs.) [[id number]] Influenza, seasonal, injectable Vital Signs Date Name [...] Report: Comp. Metabolic Panel, HGBA1C - Chemistry urea nitrogen, blood 19 mg/dL 7-18 creatinine, [...] carbon dioxide, venous blood 30.0 mmol/L 21.0-32.0 chloride, serum 104 mmol/L 98-107 potassium, serum 4.5 mmol/L 3.5-5.2 sodium, serum 140 mmol/L 136-145 Lab Report: HGBA1C - Chemistry hemoglobin A1C, blood, as % of total hemoglobin 7.7 % 4.3-6.0 hemoglobin A1C, blood, as % of total hemoglobin 7.0 % 4.3-6.0 hemoglobin A1C, blood, as % of total hemoglobin 7.1 % 4.3-6.0 Lab Report: UADIP W/MICRO, AUTO - Chemistry protein, total urine random Trace mg/dL Negative [...] strip Trace Negative bilirubin, urine Negative Negative glucose, urine, semiquantitative Negative Negative urobilinogen, urine, semiquantitative (dipstick) 0.2 Normal leukocyte esterase, urine, by dipstick 2+ Negative nitrite, urine, semiquantitative Negative Negative appearance, urine Cloudy Clear specific gravity, urine 1.025 1.000-1.030 pH, urine, semiquantitative 6.0 5.0-8.5 glucose, urine, semiquantitative Negative Negative urine color Yellow Colorless;Lightyellow;Straw;Yellow ketones, urine, by test strip Negative Negative bilirubin, urine Negative Negative urobilinogen, urine, semiquantitative (dipstick) 0.2 Normal leukocyte esterase, urine, by dipstick 3+ Negative nitrite, urine, semiquantitative Negative Negative appearance, urine Cloudy Clear specific gravity, urine 1.030 1.000-1.030 pH, urine, semiquantitative 6.5 5.0-8.5 urobilinogen, urine, semiquantitative (dipstick) 0.2 Normal leukocyte esterase, urine, by dipstick Trace Negative nitrite, urine, semiquantitative Negative Negative urine color Yellow Colorless;Lightyellow;Straw;Yellow ketones, urine, by test strip Negative Negative bilirubin, urine Negative Negative glucose, urine, semiquantitative Negative Negative urine color Light yellow Colorless;Lightyellow;Straw;Yellow ketones, urine, by test strip Negative Negative bilirubin, urine Negative Negative appearance, urine Clear Clear specific gravity, urine 1.025 1.000-1.030 pH, urine, semiquantitative 6.0 5.0-8.5 Encounters Code Encounter Date Provider Facility CPT-96334 Level 4 New Patient 14:59:23 CDT [facility] CPT-14743 Level 3 Est. Patient 16:43:04 [employer] Nadir Hector MD [facility] CPT-01888 Level 4 Est. Patient 14:21:01 [employer] Nadir Hector MD [facility] CPT-82385 Level 3 Est. Patient 16:41:34 CDT Nadir Hector MD [facility] CPT-79084 Level 4 Est. Patient 13:54:35 [employer] Nadir Hector MD [facility] CPT-98927 Level 3 Est. Patient 15:51:21 CDT Nadir Hector MD [facility] CPT-46727 Level 4 New Patient 15:58:26 CDT Catalino Irene MD [facility] CPT-91300 Level 4 Est. Patient 15:42:38 [employer] Nadir Hector MD [facility] Procedures Code Procedure Name Date Entry Date Standard Description CPT-96071 Urine Dip (Floor Use Only) 14:59:25 CDT CPT-25919 Bladder Scan 14:59:24 CDT CPT-97876 Cystoscopy 14:59:24 CDT CPT-60420 Abd single AP View 12:13:13 CDT CPT-000 Give Pneumovax 14:21:01 [facility] [employer] CPT-000 Give Appropriate Flu Vaccine 14:21:01 [facility] [employer] CPT-79349 Bone Density 08:41:23 [facility] [employer] CPT-000 Give Appropriate Flu Vaccine 13:54:35 [facility] [employer] CPT-000 Give Pneumovax 13:54:35 [facility] [employer] CPT-62668 Administration 2+ single or combination vaccines inc oral 14:01:24 [facility] [employer] CPT-27508 Administration single or combination vaccine inc oral 14 :01:24 [facility] [employer] CPT-52549 Influenza High Dose age 65+ 14:01:24 [facility] [employer] CPT-99819 Pneumovax 14:01:24 [employer] [employer] CPT-19879 Venipuncture Draw Fee 10:36:48 CDT CPT-000 Give Appropriate Flu Vaccine 15:20:11 [employer] CPT-29450 Administration single or combination vaccine inc oral 15 :50:33 [facility] [employer] CPT-43618 Influenza High Dose age 65+ 15:50:33 [facility] [employer] CPT-45392 LS spine AP and Lat 15:30:05 [facility] [employer] CPT-98664 Hip comp min 2V 15:30:05 [facility] [employer] CPT-93131 Postop F/U Visit 17:28:18 CDT CPT-OV Office Visit 15:04:38 CDT CPT-16062 Bladder Scan 15:58:26 CDT CPT-05197 Cystoscopy 15:58:26 CDT CPT-OV Office Visit 16:15:09 CDT CPT-000 Give Appropriate Flu Vaccine 16:33:10 [facility] [employer] CPT-52080 Administration single or combination vaccine inc oral 19 :21:12 [facility] [employer] CPT-27905 Influenza split virus > age 3 19:21:12 [facility]
--- OUTSIDE RECORDS SUMMARY | 2017-07-23 09:44 | XMS REPORT | Clinical Summary ---
Author Author Admin, IMTIAZ Organization [facility] Address Unknown Phone Unavailable Allergies, Adverse [...] MD Routine general medical examination at a [facility] care facility PERIPHERAL NEUROPATHY 356.9 [...] AMOXICILLIN 500 MG ORAL CAPS tid AMOXICILLIN 70413626947 No Longer Active Catalino Irene MD Active BACTRIM DS TABS Take 1 po BID SULFAMETHOXAZOLE- TRIMETHOPRIM TABS 59684265685 No Longer Active Pam Gomez LPN Active MACROBID 100 MG CAP 1 cap by mouth twice daily NITROFURANTOIN MONOHYD MACRO 76401537579 No Longer Active Pam Gomez LPN Active DIFLUCAN 150 MG TAB 1 tablet by mouth daily FLUCONAZOLE 10683140807 Active Pam Gomez LPN Active CIPRO 250 MG TAB 1 tablet by mouth twice daily CIPROFLOXACIN HCL 71061173933 No Longer Active Pam Gomez LPN Active JANUVIA 100 MG ORAL TABS 1 daily SITAGLIPTIN PHOSPHATE 02646376051 Active Nadir Hector MD Active GLUCOTROL XL 5 MG [id number] one tablet daily GLIPIZIDE 72197348067 No Longer Active Nadir Hector MD Active BACTRIM DS 800-160 MG TABS 1 po BID x 7 days SULFAMETHOXAZOLE-TRIMETHOPRIM 14435017665 No Longer Active Jamal Burrell MD Active FOSAMAX 70 MG TABS 1 po qweek. Take 30min prior to first food/drink. Avoid lying down x 1 hour. ALENDRONATE SODIUM 45455327354 Active Nadir Hector MD Active AMOXICILLIN 500 MG CAPS 2 po BID x 10 days AMOXICILLIN 33788945685 No Longer Active Nadir Hector MD Active JANUVIA 100 MG TABS 1 tablet by mouth daily SITAGLIPTIN PHOSPHATE 36502040186 No Longer Active Nadir Hector MD Active JANUVIA 100 MG TABS Take 1 tab daily SITAGLIPTIN PHOSPHATE 02099503470 No Longer Active Sharon Nuñez Active MACROBID 100 MG CAP 1 cap by mouth twice daily NITROFURANTOIN MONOHYD MACRO 56530417886 No Longer Active Crystal Fernández APRN Active MACRODANTIN 100 MG CAPS 1 capsule by mouth twice daily for seven days NITROFURANTOIN MACROCRYSTAL 06364212778 No Longer Active Ro Yang RN Active BACTRIM DS 800-160 MG TABS one tablet twice a day for seven days SULFAMETHOXAZOLE-TRIMETHOPRIM 31972760577 No Longer Active HEMANTH Griffin Active BACTRIM DS 800-160 MG TABS TAKE ONE TABLET BY MOUTH TWICE DAILY FOR 7 DAYS SULFAMETHOXAZOLE-TRIMETHOPRIM 89948288464 No Longer Active Viviana Lal RN Active CIPRO 250 MG TABS TAKE ONE TABLET BY MOUTH TWICE DAILY FOR 5 DAYS CIPROFLOXACIN HCL 58193327908 No Longer Active Viviana Lal RN Active FLEXERIL 10 MG TABS 1/2 TO 1 TABLET Q12H NEEDED CYCLOBENZAPRINE HCL 10640597328 No Longer Active Viviana Lal RN Active AMLODIPINE BESYLATE 5 MG TABS 1 1/2 daily AMLODIPINE BESYLATE 67878107824 Active Nadir Hector MD Active ONGLYZA 5 MG TABS 1 QAM SAXAGLIPTIN HCL 87494180452 No Longer Active Nadir Hector MD Active AMLODIPINE BESYLATE 5 MG TABS 1 1/2 TABLET DAILY AMLODIPINE BESYLATE 13572114883 No Longer Active Nadir Hector MD Active LORTAB 5-500 MG TABS 1 BY MOUTH Q6H NEEDED HYDROCODONE- ACETAMINOPHEN 07745562200 No Longer Active Nadir Hector MD Active ACTOS 45 MG TABS 1 QD PIOGLITAZONE HCL 69234809855 No Longer Active Nadir Hector MD Active BACTRIM DS 800-160 MG TAB 1 tab by mouth twice daily TRIMETHOPRIM-SULFAMETHOXAZOLE 81571448832 No Longer Active Nadir Hector MD Active CALCIUM + D 600-200 MG-UNIT TABS 1 TABLET TWO TIMES A DAY CALCIUM CARBONATE-VITAMIN D 99261624561 Active Ro Yang RN Active METOPROLOL SUCCINATE 25 MG [id number] 1 QAM METOPROLOL SUCCINATE 01149092723 Active Nadir Hector MD Active AMARYL 4 MG TABS 1 QD GLIMEPIRIDE 09431696751 Active Nadir Hector MD Active LOVASTATIN 40 MG TABS 1 QD LOVASTATIN 99783828473 Active Nadir Hector MD Active GLUCOPHAGE 1000 MG TABS 1 TABLET TWO TIMES A DAY METFORMIN HCL 57976083409 Active Nadir Hector MD Active MAXZIDE-25 37.5-25 MG TABS 1 QD TRIAMTERENE-HCTZ 54088919525 Active Nadir Hector MD Active ACCUPRIL 40 MG TABS 1 QD QUINAPRIL HCL 57734220400 Active Nadir Hector MD Active BACTRIM DS 800-160 MG TAB 1 tab by mouth twice daily BACTRIM DS 800-160 MG TAB TRIMETHOPRIM-SULFAMETHOXAZOLE Inactive ACTOS 45 MG TABS 1 QD ACTOS 45 MG TABS 315843 PIOGLITAZONE HCL Inactive LORTAB 5-500 MG TABS 1 BY MOUTH Q6H NEEDED LORTAB 5-500 MG TABS HYDROCODONE-ACETAMINOPHEN Inactive AMLODIPINE BESYLATE 5 MG TABS 1 1/2 TABLET DAILY AMLODIPINE BESYLATE 5 MG TABS 312721 AMLODIPINE BESYLATE Inactive ONGLYZA 5 MG TABS 1 QAM ONGLYZA 5 MG TABS SAXAGLIPTIN HCL Inactive FLEXERIL 10 MG TABS 1/2 TO 1 TABLET Q12H NEEDED FLEXERIL 10 MG TABS CYCLOBENZAPRINE HCL Inactive CIPRO 250 MG TABS TAKE ONE TABLET BY MOUTH TWICE DAILY FOR 5 DAYS CIPRO 250 MG TABS 824704 CIPROFLOXACIN HCL Inactive BACTRIM DS 800-160 MG TABS TAKE ONE TABLET BY MOUTH TWICE DAILY FOR 7 DAYS BACTRIM DS 800-160 MG TABS SULFAMETHOXAZOLE-TRIMETHOPRIM Inactive BACTRIM DS 800-160 MG TABS one tablet twice a day for seven days BACTRIM DS 800-160 MG TABS SULFAMETHOXAZOLE-TRIMETHOPRIM Inactive MACROBID 100 MG CAP 1 cap by mouth twice daily MACROBID 100 MG CAP 148270 NITROFURANTOIN MONOHYD MACRO Inactive JANUVIA 100 MG TABS Take 1 tab daily JANUVIA 100 MG TABS SITAGLIPTIN PHOSPHATE Inactive GLUCOTROL XL 5 MG [id number] one tablet daily GLUCOTROL XL 5 MG [id number] GLIPIZIDE Inactive MACRODANTIN 100 MG CAPS 1 capsule by mouth twice daily for seven days MACRODANTIN 100 MG CAPS 485459 NITROFURANTOIN MACROCRYSTAL Inactive AMOXICILLIN 500 MG CAPS 2 po BID x 10 days AMOXICILLIN 500 MG CAPS 222261 AMOXICILLIN Inactive BACTRIM DS 800-160 MG TABS 1 po BID x 7 days BACTRIM DS 800-160 MG TABS SULFAMETHOXAZOLE-TRIMETHOPRIM Inactive CIPRO 250 MG TAB 1 tablet by mouth twice daily CIPRO 250 MG TAB 700019 CIPROFLOXACIN HCL Inactive MACROBID 100 MG CAP 1 cap by mouth twice daily MACROBID 100 MG CAP 684500 NITROFURANTOIN MONOHYD MACRO Inactive BACTRIM DS TABS Take 1 po BID BACTRIM DS TABS SULFAMETHOXAZOLE-TRIMETHOPRIM TABS Inactive AMOXICILLIN 500 MG ORAL CAPS tid AMOXICILLIN 500 MG ORAL CAPS 874211 AMOXICILLIN Inactive Advance Directives Directive Description Start Date PERMISSION TO SHARE Immunizations Vaccine Administration Date Value Standard Description pneumococcal immunization administered Pneumovax 23 [CVX33] pneumococcal polysaccharide vaccine, 23 valent Seasonal influenza vaccine, injectable, containing preservative, for > 3 years old (Afluria, FluLaval, Fluzone, Fluvirin, Fluarix, Agriflu(>=18 yo)) Fluzone (>3 yrs.) [[id number]] Influenza, seasonal, injectable Vital Signs Date Name [...] HGBA1C - Chemistry sodium, serum 140 mmol/L 079-572 5208/07/23 potassium, serum 4.5 mmol/L 3.5-5.2 chloride, serum [...] 0.2 Encounters Code Encounter Date Provider Facility CPT-61809 Level 4 New Patient 14:59:23 CDT Catalino Irene MD [facility] CPT-81472 Level 3 Est. Patient 16:43:04 [employer] Nadir Hector MD [facility] CPT-49475 Level 4 Est. Patient 14:21:01 DIRECT[employer]SE [employer]ER[employer]Y Nadir Hector MD [facility] CPT-34667 Level 3 Est. Patient 16:41:34 CDT Nadir Hector MD [facility] CPT-44306 Level 4 Est. Patient 13:54:35 DIRECT[employer]SE [employer]ER[employer]Y Nadir Hector MD [facility] CPT-61184 Level 3 Est. Patient 15:51:21 CDT Nadir Hector MD [facility] CPT-90153 Level 4 New Patient 15:58:26 CDT Catalino Irene MD [facility] CPT-15819 Level 4 Est. Patient 15:42:38 DIRECT[employer] CH[employer]BUSE [employer]ERAPY Nadir Hector MD [facility] Procedures Code Procedure Name Date Entry Date Standard Description CPT-21820 Urine Dip (Floor Use Only) 14:59:25 CDT CPT-21349 Bladder Scan 14:59:24 CDT CPT-53618 Cystoscopy 14:59:24 CDT CPT-84402 Abd single AP View 12:13:13 CDT CPT-000 Give Pneumovax 14:21:01 [employer]ER[employer] CPT-000 Give Appropriate Flu Vaccine 14:21:01 [employer]ER[employer] CPT-46419 Bone Density 08:41:23 DIRECT[employer] CH[employer]BUSE [employer]ERAPY CPT-000 Give Appropriate Flu Vaccine 13:54:35 [employer]SE [employer]ER[employer] CPT-000 Give Pneumovax 13:54:35 [employer]SE [employer]ER[employer] CPT-37105 Administration 2+ single or combination vaccines inc oral 14:01:24 [employer]ER[employer] CPT-27229 Administration single or combination vaccine inc oral 14 :01:24 [employer]ER[employer] CPT-77937 Influenza High Dose age 65+ 14:01:24 [employer]SE [employer]ER[employer] CPT-40464 Pneumovax 14:01:24 [employer]OR CH[employer]BUSE [employer]ERAPY CPT-53774 Venipuncture Draw Fee 10:36:48 CDT CPT-000 Give Appropriate Flu Vaccine 15:20:11 [employer]SE [employer]ER[employer] CPT-82338 Administration single or combination vaccine inc oral 15 :50:33 [employer]SE [employer]ER[employer] CPT-61391 Influenza High Dose age 65+ 15:50:33 [employer]SE [employer]ER[employer] CPT-26924 LS spine AP and Lat 15:30:05 [employer]ER[employer] CPT-19366 Hip comp min 2V 15:30:05 [employer]SE [employer]ER[employer] CPT-79352 Postop F/U Visit 17:28:18 CDT CPT-OV Office Visit 15:04:38 CDT CPT-65701 Bladder Scan 15:58:26 CDT CPT-85274 Cystoscopy 15:58:26 CDT CPT-OV Office Visit 16:15:09 CDT CPT-000 Give Appropriate Flu Vaccine 16:33:10 [employer]SE [employer]ERAP[employer] CPT-98444 Administration single or combination vaccine inc oral 19 :21:12 DIRECT[employer] CH[employer]BUSE THERAPY CPT-88397 Influenza split virus > age 3 19:21:12 DIRECTOR CHILD ABUSE THERAPY
--- OUTSIDE RECORDS SUMMARY | 2017-07-23 09:45 | XMS REPORT | Clinical Summary ---
Author Author Admin, [facility] Organization [employer] Address Unknown Phone Unavailable Allergies, Adverse Reactions, Alerts Allergy Name Reaction Description Start Date Severity Status Provider No Known Allergies Rosy Elder Conditions or Problems Problem Name Problem Code [...] MD Routine general medical examination at a [facility] PERIPHERAL NEUROPATHY 356.9 Active Nadir Hector MD [...] Acute sinusitis, unspecified Menopause, surgical 627.4 Active [facility] Symptomatic states associated with artificial menopause Urinary [...] Generic Name NDC Status Provider Patient Instruction GLIMEPIRIDE 1 MG ORAL TABS 1 tab by mouth daily GLIMEPIRIDE 67711353164 Active Catalino Irene MD Active VITAMIN E 400 IU CAP 1 tab by mouth daily VITAMIN E 60078560849 Active Catalino Irene MD Active QUINAPRIL HCL 20 MG ORAL TABS 1 tab by mouth daily QUINAPRIL HCL 50230091747 Active Catalino Irene MD Active PANTOPRAZOLE SODIUM 40 MG TBEC 1 pill by mouth daily PANTOPRAZOLE SODIUM 05094236450 Active Catalino Irene MD Active CARAFATE 1 GM ORAL TABS 1 tab by mouth four times daily SUCRALFATE 59231610408 Active Catalino Irene MD Active METFORMIN HCL 500 MG TABS 1 tablet by mouth twice daily METFORMIN HCL 77720023124 Active Catalino Irene MD Active ACCUPRIL 40 MG TABS 1 QD QUINAPRIL HCL 72633847594 No Longer Active Catalino Irene MD Active JANUVIA 100 MG ORAL TABS 1 daily SITAGLIPTIN PHOSPHATE 82401202023 No Longer Active Catalino Irene MD Active DIFLUCAN 150 MG TAB 1 tablet by mouth daily FLUCONAZOLE 87645402706 No Longer Active Nadir Hector MD Active BACTRIM DS 800-160 MG ORAL TABS 1 BID for 5 days SULFAMETHOXAZOLE-TRIMETHOPRIM 65898739744 No Longer Active Nadir Hector MD Active CIPRO 250 MG TAB 1 tablet by mouth twice daily CIPROFLOXACIN HCL 25269816958 No Longer Active Ro Meyer Active AMOXICILLIN 500 MG ORAL CAPS tid AMOXICILLIN 04401786817 No Longer Active Catalino Irene MD Active BACTRIM DS TABS Take 1 po BID SULFAMETHOXAZOLE- TRIMETHOPRIM TABS 06769738699 No Longer Active Pam Gomez LPN Active MACROBID 100 MG CAP 1 cap by mouth twice daily NITROFURANTOIN MONOHYD MACRO 96841686015 No Longer Active Pam Gomez LPN Active CIPRO 250 MG TAB 1 tablet by mouth twice daily CIPROFLOXACIN HCL 16733920189 No Longer Active Pam Gomez LPN Active GLUCOTROL XL 5 MG [id number] one tablet daily GLIPIZIDE 30177638101 No Longer Active Nadir Hector MD Active BACTRIM DS 800-160 MG TABS 1 po BID x 7 days SULFAMETHOXAZOLE-TRIMETHOPRIM 29575429777 No Longer Active Jamal Burrell MD Active FOSAMAX 70 MG TABS 1 po qweek. Take 30min prior to first food/drink. Avoid lying down x 1 hour. ALENDRONATE SODIUM 97833489446 Active Nadir Hector MD Active AMOXICILLIN 500 MG CAPS 2 po BID x 10 days AMOXICILLIN 76315491627 No Longer Active Nadir Hector MD Active JANUVIA 100 MG TABS 1 tablet by mouth daily SITAGLIPTIN PHOSPHATE 71052309040 No Longer Active Nadir Hector MD Active JANUVIA 100 MG TABS Take 1 tab daily SITAGLIPTIN PHOSPHATE 26864243122 No Longer Active Sharon Nuñez Active MACROBID 100 MG CAP 1 cap by mouth twice daily NITROFURANTOIN MONOHYD MACRO 96272412754 No Longer Active Crystal Fernández APRN Active MACRODANTIN 100 MG CAPS 1 capsule by mouth twice daily for seven days NITROFURANTOIN MACROCRYSTAL 76474789325 No Longer Active Ro Yang RN Active BACTRIM DS 800-160 MG TABS one tablet twice a day for seven days SULFAMETHOXAZOLE-TRIMETHOPRIM 93680294284 No Longer Active HEMANTH Griffin Active BACTRIM DS 800-160 MG TABS TAKE ONE TABLET BY MOUTH TWICE DAILY FOR 7 DAYS SULFAMETHOXAZOLE-TRIMETHOPRIM 08909898491 No Longer Active Viviana Lal RN Active CIPRO 250 MG TABS TAKE ONE TABLET BY MOUTH TWICE DAILY FOR 5 DAYS CIPROFLOXACIN HCL 72306894344 No Longer Active Viviana Lal RN Active FLEXERIL 10 MG TABS 1/2 TO 1 TABLET Q12H NEEDED CYCLOBENZAPRINE HCL 69525318906 No Longer Active Viviana Lal RN Active AMLODIPINE BESYLATE 5 MG TABS 1 1/2 daily AMLODIPINE BESYLATE 65998550214 Active Nadir Hector MD Active ONGLYZA 5 MG TABS 1 QAM SAXAGLIPTIN HCL 51606401021 No Longer Active Nadir Hector MD Active AMLODIPINE BESYLATE 5 MG TABS 1 1/2 TABLET DAILY AMLODIPINE BESYLATE 95165799910 No Longer Active Nadir Hector MD Active LORTAB 5-500 MG TABS 1 BY MOUTH Q6H NEEDED HYDROCODONE- ACETAMINOPHEN 08091807273 No Longer Active Nadir Hector MD Active ACTOS 45 MG TABS 1 QD PIOGLITAZONE HCL 87907526974 No Longer Active Nadir Hector MD Active BACTRIM DS 800-160 MG TAB 1 tab by mouth twice daily TRIMETHOPRIM-SULFAMETHOXAZOLE 26129635588 No Longer Active Nadir Hector MD Active CALCIUM + D 600-200 MG-UNIT TABS 1 TABLET TWO TIMES A DAY CALCIUM CARBONATE-VITAMIN D 63984647313 Active Ro Yang RN Active METOPROLOL SUCCINATE 25 MG [id number] 1 QAM METOPROLOL SUCCINATE 48594347158 Active Nadir Hector MD Active AMARYL 4 MG TABS 1 QD GLIMEPIRIDE 95281506818 Active Nadir Hector MD Active LOVASTATIN 40 MG TABS 1 QD LOVASTATIN 28527096543 Active Nadir Hector MD Active MAXZIDE-25 37.5-25 MG TABS 1 QD TRIAMTERENE-HCTZ 96559608759 Active Nadir Hector MD Active BACTRIM DS 800-160 MG TAB 1 tab by mouth twice daily BACTRIM DS 800-160 MG TAB 550532 TRIMETHOPRIM-SULFAMETHOXAZOLE Inactive ACTOS 45 MG TABS 1 QD ACTOS 45 MG TABS 062407 PIOGLITAZONE HCL Inactive LORTAB 5-500 MG TABS 1 BY MOUTH Q6H NEEDED LORTAB 5-500 MG TABS HYDROCODONE-ACETAMINOPHEN Inactive AMLODIPINE BESYLATE 5 MG TABS 1 1/2 TABLET DAILY AMLODIPINE BESYLATE 5 MG TABS 425403 AMLODIPINE BESYLATE Inactive ONGLYZA 5 MG TABS [...] mouth twice daily MACROBID 100 MG CAP 8858627 NITROFURANTOIN MONOHYD MACRO Inactive JANUVIA 100 MG TABS Take 1 tab daily JANUVIA 100 MG TABS SITAGLIPTIN PHOSPHATE Inactive GLUCOTROL XL 5 MG [id number] one tablet daily GLUCOTROL XL 5 MG [id number] GLIPIZIDE Inactive BACTRIM DS 800-160 MG ORAL TABS 1 BID for 5 days BACTRIM DS 800-160 MG ORAL TABS 19820615 SULFAMETHOXAZOLE-TRIMETHOPRIM Inactive DIFLUCAN 150 MG TAB 1 tablet by mouth daily DIFLUCAN 150 MG TAB 892439 FLUCONAZOLE Inactive JANUVIA 100 MG ORAL TABS 1 daily JANUVIA 100 MG ORAL TABS SITAGLIPTIN PHOSPHATE Inactive ACCUPRIL 40 MG TABS 1 QD ACCUPRIL 40 MG TABS 037139 QUINAPRIL HCL Inactive MACRODANTIN 100 MG CAPS 1 capsule by mouth twice daily for seven days MACRODANTIN 100 MG CAPS 8613526 NITROFURANTOIN MACROCRYSTAL Inactive AMOXICILLIN 500 MG CAPS 2 po BID x 10 days AMOXICILLIN 500 MG CAPS 643222 AMOXICILLIN Inactive BACTRIM DS 800-160 MG TABS 1 po BID x 7 days BACTRIM DS 800-160 MG TABS 443623 SULFAMETHOXAZOLE-TRIMETHOPRIM Inactive CIPRO 250 MG TAB 1 tablet by mouth twice daily CIPRO 250 MG TAB 19740413 CIPROFLOXACIN HCL Inactive MACROBID 100 MG CAP 1 cap by mouth twice daily MACROBID 100 MG CAP 1697948 NITROFURANTOIN MONOHYD MACRO Inactive BACTRIM DS TABS Take 1 po BID BACTRIM DS TABS SULFAMETHOXAZOLE-TRIMETHOPRIM TABS Inactive AMOXICILLIN 500 MG ORAL CAPS tid AMOXICILLIN 500 MG ORAL CAPS 386553 AMOXICILLIN Inactive CIPRO 250 MG TAB 1 [...] Fluvirin, Fluarix, Agriflu(>=18 yo)) Fluzone (>3 yrs.) [MQX582] Influenza, seasonal, injectable Vital Signs Date Name Value Unit Range Description blood pressure, diastolic - 8462-4 53 mm[Hg] BP tyler blood pressure, systolic - 8480-6 108 mm[Hg] BP sys pulse rate E&M - 8867-4 91 /min Heart rate temperature E&M 97.8 [degF] Body temperature weight E&M - 3141-9 133 [lb_av] Weight Measured Diagnostic Results Date Name Value Unit Range Description Lab Report: Partial Thromboplastin Time (aPTT)/763, Reticulocyte Count/7 ... - Hematology leukocyte count, blood 17.6 THOUSAND/UL 10*3/mm3 3.8-10.8 erythrocyte (RBC) count 3.61 MILLION/UL 10*6/mm3 3.80-5.10 hemoglobin, blood 8.2 g/dL 11.7-15.5 hematocrit, blood 26.0 % 35.0-45.0 mean corpuscular volume, RBC 72.0 fL 80.0-100.0 mean corpuscular hemoglobin, RBC 22.6 pg 27.0-33.0 mean corpuscular hemoglobin concentration, RBC 31.4 G/DL % 32.0- 36.0 red blood cell distribution width 19.5 % 11.0-15.0 platelet count 931 THOUSAND/UL 10*3/mm3 040-752 4797/05/09 mean platelet volume 5.9 fL 7.5-12.5 Encounters Code Encounter Date Provider Facility CPT-69144 Level 3 Est. Patient 13:06:50 CDT Catalino Irene MD [facility] CPT-02713 Level 4 Est. Patient 19:00:26 CDT Catalino Irene MD [facility] CPT-99039 Level 2 Est. Patient 07:03:19 CDT Catalino Irene MD [facility] CPT-51086 Level 4 Est. Patient 09:54:20 CDT Nadir Hector MD [facility] CPT-10755 Level 2 Est. Patient 18:56:33 CDT Catalino Irene MD [facility] CPT-33126 Level 4 New Patient 14:59:23 CDT Catalino Irene MD [facility] CPT-69801 Level 3 Est. Patient 16:43:04 BOX PRINTING MACHINE OPERATOR Nadir Hector MD [facility] CPT-49736 Level 4 Est. Patient 14:21:01 BOX PRINTING MACHINE OPERATOR Nadir Hector MD [facility] CPT-29484 Level 3 Est. Patient 16:41:34 CDT Nadir Hector MD [facility] CPT-34757 Level 4 Est. Patient 13:54:35 BOX PRINTING MACHINE OPERATOR Nadir Hector MD [facility] CPT-14593 Level 3 Est. Patient 15:51:21 CDT Nadir Hector MD [facility] CPT-09062 Level 4 New Patient 15:58:26 CDT Catalino Irene MD [facility] CPT-83539 Level 4 Est. Patient 15:42:38 BOX PRINTING MACHINE OPERATOR Nadir Hector MD [facility] Procedures Code Procedure Name Date Entry Date Standard Description CPT-93502 Urine Dip (Floor Use Only) 18:56:34 CDT CPT-01620 Urine Dip (Floor Use Only) 14:21:22 CDT CPT-J0561 Bicillin LA 1,200,000 u (PCN G Benzathine) 13:16:19 CDT CPT-30834 Abx/Therapy Injection 13:16:19 CDT CPT-54704 Urine Dip (Floor Use Only) 14:59:25 CDT CPT-56411 Bladder Scan 14:59:24 CDT CPT-20403 Cystoscopy 14:59:24 CDT CPT-13537 Abd single AP View 12:13:13 CDT CPT-000 Give Pneumovax 14:21:01 BOX PRINTING MACHINE OPERATOR CPT-000 Give Appropriate Flu Vaccine 14:21:01 BOX PRINTING MACHINE OPERATOR CPT-70910 Bone Density 08:41:23 BOX PRINTING MACHINE OPERATOR CPT-000 Give Appropriate Flu Vaccine 13:54:35 BOX PRINTING MACHINE OPERATOR CPT-000 Give Pneumovax 13:54:35 BOX PRINTING MACHINE OPERATOR CPT-26668 Administration 2+ single or combination vaccines inc oral 14:01:24 BOX PRINTING MACHINE OPERATOR CPT-28437 Administration single or combination vaccine inc oral 14 :01:24 BOX PRINTING MACHINE OPERATOR CPT-74009 Influenza High Dose age 65+ 14:01:24 BOX PRINTING MACHINE OPERATOR CPT-64984 Pneumovax 14:01:24 BOX PRINTING MACHINE OPERATOR CPT-56155 Venipuncture Draw Fee 10:36:48 CDT CPT-000 Give Appropriate Flu Vaccine 15:20:11 BOX PRINTING MACHINE OPERATOR CPT-87037 Administration single or combination vaccine inc oral 15 :50:33 BOX PRINTING MACHINE OPERATOR CPT-25709 Influenza High Dose age 65+ 15:50:33 BOX PRINTING MACHINE OPERATOR CPT-09366 LS spine AP and Lat 15:30:05 BOX PRINTING MACHINE OPERATOR CPT-86957 Hip comp min 2V 15:30:05 BOX PRINTING MACHINE OPERATOR CPT-80148 Postop F/U Visit 17:28:18 CDT CPT-OV Office Visit 15:04:38 CDT CPT-11969 Bladder Scan 15:58:26 CDT CPT-04037 Cystoscopy 15:58:26 CDT CPT-OV Office Visit 16:15:09 CDT CPT-000 Give Appropriate Flu Vaccine 16:33:10 BOX PRINTING MACHINE OPERATOR CPT-45484 Administration single or combination vaccine inc oral 19 :21:12 BOX PRINTING MACHINE OPERATOR CPT-61045 Influenza split virus > age 3 19:21:12 BOX PRINTING MACHINE OPERATOR
--- OUTSIDE RECORDS SUMMARY | 2017-07-23 09:47 | XMS REPORT | Clinical Summary ---
[...] MD Routine general medical examination at a [facility] care facility PERIPHERAL NEUROPATHY 356.9 Active [...] Hector MD Backache, unspecified Sinusitis 461.9 Active aNdir Hector MD Acute sinusitis, unspecified Menopause, surgical 627.4 Active [facility] Symptomatic states associated with artificial menopause Urinary tract infection, site not specified 599.[address] Urinary tract infection, site not specified Bladder Prolapse 596.9 Active Catalino Irene MD Unspecified disorder of bladder U T I-Recurrent 599.0 Active Catalnio Irene MD Urinary tract infection, site not specified Incomplete Bladder Emptying 788.21 Active Catalino Irene MD Incomplete bladder emptying Hematuria 599.70 Active Catalino Irene MD Hematuria, unspecified Medication List Medication Instructions Start Date Stop Date Generic Name NDC Status Provider Patient Instruction AMOXICILLIN 500 MG ORAL CAPS tid AMOXICILLIN 00391825159 No Longer Active Catalino Irene MD Active BACTRIM DS TABS Take 1 po BID SULFAMETHOXAZOLE- TRIMETHOPRIM TABS 44979985171 No Longer Active Pam Gomez LPN Active MACROBID 100 MG CAP 1 cap by mouth twice daily NITROFURANTOIN MONOHYD MACRO 82312589619 No Longer Active Pam Gomez LPN Active DIFLUCAN 150 MG TAB 1 tablet by mouth daily FLUCONAZOLE 79999604074 Active Pam Gomez LPN Active CIPRO 250 MG TAB 1 tablet by mouth twice daily CIPROFLOXACIN HCL 16153878422 No Longer Active Pam Gomez LPN Active JANUVIA 100 MG ORAL TABS 1 daily SITAGLIPTIN PHOSPHATE 12685431815 Active Nadir Hector MD Active GLUCOTROL XL 5 MG [id number] one tablet daily GLIPIZIDE 11733723967 No Longer Active Nadir Hector MD Active BACTRIM DS 800-160 MG TABS 1 po BID x 7 days SULFAMETHOXAZOLE-TRIMETHOPRIM 20988831916 No Longer Active Jamal Burrell MD Active FOSAMAX 70 MG TABS 1 po qweek. Take 30min prior to first food/drink. Avoid lying down x 1 hour. ALENDRONATE SODIUM 57757006644 Active Nadir Hector MD Active AMOXICILLIN 500 MG CAPS 2 po BID x 10 days AMOXICILLIN 73898352316 No Longer Active Nadir Hector MD Active JANUVIA 100 MG TABS 1 tablet by mouth daily SITAGLIPTIN PHOSPHATE 27541370467 No Longer Active Nadir Hector MD Active JANUVIA 100 MG TABS Take 1 tab daily SITAGLIPTIN PHOSPHATE 39617089401 No Longer Active Sharon Nuñez Active MACROBID 100 MG CAP 1 cap by mouth twice daily NITROFURANTOIN MONOHYD MACRO 90471621806 No Longer Active Crystal Fernández APRN Active MACRODANTIN 100 MG CAPS 1 capsule by mouth twice daily for seven days NITROFURANTOIN MACROCRYSTAL 24685520078 No Longer Active Ro Yang RN Active BACTRIM DS 800-160 MG TABS one tablet twice a day for seven days SULFAMETHOXAZOLE-TRIMETHOPRIM 99728200546 No Longer Active HEMANTH Griffin Active BACTRIM DS 800-160 MG TABS TAKE ONE TABLET BY MOUTH TWICE DAILY FOR 7 DAYS SULFAMETHOXAZOLE-TRIMETHOPRIM 59544565935 No Longer Active Viviana Lal RN Active CIPRO 250 MG TABS TAKE ONE TABLET BY MOUTH TWICE DAILY FOR 5 DAYS CIPROFLOXACIN HCL 62448833460 No Longer Active Viviana Lal RN Active FLEXERIL 10 MG TABS 1/2 TO 1 TABLET Q12H NEEDED CYCLOBENZAPRINE HCL 76952901079 No Longer Active Viviana Lal RN Active AMLODIPINE BESYLATE 5 MG TABS 1 1/2 daily AMLODIPINE BESYLATE 63552198020 Active Nadir Hector MD Active ONGLYZA 5 MG TABS 1 QAM SAXAGLIPTIN HCL 23690758296 No Longer Active Nadir Hector MD Active AMLODIPINE BESYLATE 5 MG TABS 1 1/2 TABLET DAILY AMLODIPINE BESYLATE 29015201529 No Longer Active Nadir Hector MD Active LORTAB 5-500 MG TABS 1 BY MOUTH Q6H NEEDED HYDROCODONE- ACETAMINOPHEN 50080800068 No Longer Active Nadir Hector MD Active ACTOS 45 MG TABS 1 QD PIOGLITAZONE HCL 25575204742 No Longer Active Nadir Hector MD Active BACTRIM DS 800-160 MG TAB 1 tab by mouth twice daily TRIMETHOPRIM-SULFAMETHOXAZOLE 90910328372 No Longer Active Nadir Hector MD Active CALCIUM + D 600-200 MG-UNIT TABS 1 TABLET TWO TIMES A DAY CALCIUM CARBONATE-VITAMIN D 68263073454 Active Ro Yang RN Active METOPROLOL SUCCINATE 25 MG [id number] 1 QAM METOPROLOL SUCCINATE 23313391904 Active Nadir Hector MD Active AMARYL 4 MG TABS 1 QD GLIMEPIRIDE 01389749667 Active Nadir Hector MD Active LOVASTATIN 40 MG TABS 1 QD LOVASTATIN 06900219245 Active Nadir Hector MD Active GLUCOPHAGE 1000 MG TABS 1 TABLET TWO TIMES A DAY METFORMIN HCL 28454348046 Active Nadir Hector MD Active MAXZIDE-25 37.5-25 MG TABS 1 QD TRIAMTERENE-HCTZ 45660075819 Active Nadir Hector MD Active ACCUPRIL 40 MG TABS 1 QD QUINAPRIL HCL 31455100296 Active Nadir Hector MD Active BACTRIM DS 800-160 MG TAB 1 tab by mouth twice daily BACTRIM DS 800-160 MG TAB TRIMETHOPRIM-SULFAMETHOXAZOLE Inactive ACTOS 45 MG TABS 1 QD ACTOS 45 MG TABS 786294 PIOGLITAZONE HCL Inactive LORTAB 5-500 MG TABS 1 BY MOUTH Q6H NEEDED LORTAB 5-500 MG TABS HYDROCODONE-ACETAMINOPHEN Inactive AMLODIPINE BESYLATE 5 MG TABS 1 1/2 TABLET DAILY AMLODIPINE BESYLATE 5 MG TABS 771450 AMLODIPINE BESYLATE Inactive ONGLYZA 5 MG TABS 1 QAM ONGLYZA 5 MG TABS SAXAGLIPTIN HCL Inactive FLEXERIL 10 MG TABS 1/2 TO 1 TABLET Q12H NEEDED FLEXERIL 10 MG TABS CYCLOBENZAPRINE HCL Inactive CIPRO 250 MG TABS TAKE ONE TABLET BY MOUTH TWICE DAILY FOR 5 DAYS CIPRO 250 MG TABS 003149 CIPROFLOXACIN HCL Inactive BACTRIM DS 800-160 MG TABS TAKE ONE TABLET BY MOUTH TWICE DAILY FOR 7 DAYS BACTRIM DS 800-160 MG TABS SULFAMETHOXAZOLE-TRIMETHOPRIM Inactive BACTRIM DS 800-160 MG TABS one tablet twice a day for seven days BACTRIM DS 800-160 MG TABS SULFAMETHOXAZOLE-TRIMETHOPRIM Inactive MACROBID 100 MG CAP 1 cap by mouth twice daily MACROBID 100 MG CAP 348688 NITROFURANTOIN MONOHYD MACRO Inactive JANUVIA 100 MG TABS Take 1 tab daily JANUVIA 100 MG TABS SITAGLIPTIN PHOSPHATE Inactive GLUCOTROL XL 5 MG [id number] one tablet daily GLUCOTROL XL 5 MG [id number] GLIPIZIDE Inactive MACRODANTIN 100 MG CAPS 1 capsule by mouth twice daily for seven days MACRODANTIN 100 MG CAPS 264418 NITROFURANTOIN MACROCRYSTAL Inactive AMOXICILLIN 500 MG CAPS 2 po BID x 10 days AMOXICILLIN 500 MG CAPS 597800 AMOXICILLIN Inactive BACTRIM DS 800-160 MG TABS 1 po BID x 7 days BACTRIM DS 800-160 MG TABS SULFAMETHOXAZOLE-TRIMETHOPRIM Inactive CIPRO 250 MG TAB 1 tablet by mouth twice daily CIPRO 250 MG TAB 289190 CIPROFLOXACIN HCL Inactive MACROBID 100 MG CAP 1 cap by mouth twice daily MACROBID 100 MG CAP 198856 NITROFURANTOIN MONOHYD MACRO Inactive BACTRIM DS TABS Take 1 po BID BACTRIM DS TABS SULFAMETHOXAZOLE-TRIMETHOPRIM TABS Inactive AMOXICILLIN 500 MG ORAL CAPS tid AMOXICILLIN 500 MG ORAL CAPS 243661 AMOXICILLIN Inactive Advance Directives Directive Description Start Date PERMISSION TO SHARE Immunizations Vaccine Administration Date Value Standard Description pneumococcal immunization administered Pneumovax 23 [CVX33] pneumococcal polysaccharide vaccine, 23 valent Seasonal influenza vaccine, injectable, containing preservative, for > 3 years old (Afluria, FluLaval, Fluzone, Fluvirin, Fluarix, Agriflu(>=18 yo)) Fluzone (>3 yrs.) [[id number]] Influenza, seasonal, injectable Vital Signs Date Name [...] Panel - Chemistry sodium, serum 138 mmol/L 807-899 8915/07/02 potassium, serum 4.5 mmol/L 3.5-5.2 chloride, serum [...] HGBA1C - Chemistry sodium, serum 140 mmol/L 333-389 4343/07/23 potassium, serum 4.5 mmol/L 3.5-5.2 chloride, serum [...] 3+ Negative RBC, urine, dipstick 1+ Negative protein, [...] urine SlCloudy Clear urine color Yellow Colorless;Lightyellow;Straw;Yellow urine color Yellow Colorless;Lightyellow;Straw;Yellow appearance, urine SlCloudy [...] 0.2 Encounters Code Encounter Date Provider Facility CPT-74000 Level 4 New Patient 14:59:23 CDT Catalino Irene MD [facility] CPT-56127 Level 3 Est. Patient 16:43:04 CARE NAVIGATOR Nadir Hector MD [facility] CPT-07414 Level 4 Est. Patient 14:21:01 CARE NAVIGATOR Nadir Hector MD [facility] CPT-53078 Level 3 Est. Patient 16:41:34 CDT Nadir Hector MD [facility] CPT-85026 Level 4 Est. Patient 13:54:35 CARE NAVIGATOR Nadir Hector MD [facility] CPT-51692 Level 3 Est. Patient 15:51:21 CDT Nadir Hector MD [facility] CPT-09290 Level 4 New Patient 15:58:26 CDT Catalino Irene MD [facility] CPT-60715 Level 4 Est. Patient 15:42:38 CARE NAVIGATOR Nadir Hector MD [facility] Procedures Code Procedure Name Date Entry Date Standard Description CPT-18950 Urine Dip (Floor Use Only) 14:59:25 CDT CPT-11259 Bladder Scan 14:59:24 CDT CPT-24632 Cystoscopy 14:59:24 CDT CPT-94707 Abd single AP View 12:13:13 CDT CPT-000 Give Pneumovax 14:21:01 CARE NAVIGATOR CPT-000 Give Appropriate Flu Vaccine 14:21:01 CARE NAVIGATOR CPT-18521 Bone Density 08:41:23 CARE NAVIGATOR CPT-000 Give Appropriate Flu Vaccine 13:54:35 CARE NAVIGATOR CPT-000 Give Pneumovax 13:54:35 CARE NAVIGATOR CPT-25145 Administration 2+ single or combination vaccines inc oral 14:01:24 CARE NAVIGATOR CPT-99425 Administration single or combination vaccine inc oral 14 :01:24 CARE NAVIGATOR CPT-87550 Influenza High Dose age 65+ 14:01:24 CARE NAVIGATOR CPT-62619 Pneumovax 14:01:24 CARE NAVIGATOR CPT-79888 Venipuncture Draw Fee 10:36:48 CDT CPT-000 Give Appropriate Flu Vaccine 15:20:11 CARE NAVIGATOR CPT-49349 Administration single or combination vaccine inc oral 15 :50:33 CARE NAVIGATOR CPT-39155 Influenza High Dose age 65+ 15:50:33 CARE NAVIGATOR CPT-28765 LS spine AP and Lat 15:30:05 CARE NAVIGATOR CPT-63308 Hip comp min 2V 15:30:05 CARE NAVIGATOR CPT-39916 Postop F/U Visit 17:28:18 CDT CPT-OV Office Visit 15:04:38 CDT CPT-64991 Bladder Scan 15:58:26 CDT CPT-77953 Cystoscopy 15:58:26 CDT CPT-OV Office Visit 16:15:09 CDT CPT-000 Give Appropriate Flu Vaccine 16:33:10 CARE NAVIGATOR CPT-58356 Administration single or combination vaccine inc oral 19 :21:12 CARE NAVIGATOR CPT-36878 Influenza split virus > age 3 19:21:12 CARE NAVIGATOR
--- OUTSIDE RECORDS SUMMARY | 2017-07-23 09:48 | XMS REPORT | Clinical Summary ---
Author Author Admin, IMTIAZ Organization [facility] Address Unknown Phone Unavailable Allergies, Adverse [...] MD Routine general medical examination at a [facility] PERIPHERAL NEUROPATHY 356.9 Active [...] bladder U T I-Recurrent 599.0 Active Catalino Irnee MD Urinary tract infection, site not specified Incomplete Bladder Emptying 788.21 Active Catalino Irene MD Incomplete bladder emptying Hematuria 599.70 Active Catalino Irene MD Hematuria, unspecified Medication List Medication Instructions Start Date Stop Date Generic Name NDC Status Provider Patient Instruction AMOXICILLIN 500 MG ORAL CAPS tid AMOXICILLIN 09775305897 No Longer Active Catalino Irene MD Active BACTRIM DS TABS Take 1 po BID SULFAMETHOXAZOLE- TRIMETHOPRIM TABS 56989647482 No Longer Active Pam Gomez LPN Active MACROBID 100 MG CAP 1 cap by mouth twice daily NITROFURANTOIN MONOHYD MACRO 96287369523 No Longer Active Pam Gomez LPN Active DIFLUCAN 150 MG TAB 1 tablet by mouth daily FLUCONAZOLE 68964086932 Active Pam Gomez LPN Active CIPRO 250 MG TAB 1 tablet by mouth twice daily CIPROFLOXACIN HCL 74269236307 No Longer Active Pam Gomez LPN Active JANUVIA 100 MG ORAL TABS 1 daily SITAGLIPTIN PHOSPHATE 23690384069 Active Nadir Hector MD Active GLUCOTROL XL 5 MG [id number] one tablet daily GLIPIZIDE 67407320779 No Longer Active Nadir Hector MD Active BACTRIM DS 800-160 MG TABS 1 po BID x 7 days SULFAMETHOXAZOLE-TRIMETHOPRIM 58087970680 No Longer Active Jamal Burrell MD Active FOSAMAX 70 MG TABS 1 po qweek. Take 30min prior to first food/drink. Avoid lying down x 1 hour. ALENDRONATE SODIUM 64174036708 Active Nadir Hector MD Active AMOXICILLIN 500 MG CAPS 2 po BID x 10 days AMOXICILLIN 37715851927 No Longer Active Nadir Hector MD Active JANUVIA 100 MG TABS 1 tablet by mouth daily SITAGLIPTIN PHOSPHATE 26586200305 No Longer Active Nadir Hector MD Active JANUVIA 100 MG TABS Take 1 tab daily SITAGLIPTIN PHOSPHATE 18834273373 No Longer Active Sharon Nuñez Active MACROBID 100 MG CAP 1 cap by mouth twice daily NITROFURANTOIN MONOHYD MACRO 15173329774 No Longer Active Crystal Fernández APRN Active MACRODANTIN 100 MG CAPS 1 capsule by mouth twice daily for seven days NITROFURANTOIN MACROCRYSTAL 10468013707 No Longer Active Ro Yang RN Active BACTRIM DS 800-160 MG TABS one tablet twice a day for seven days SULFAMETHOXAZOLE-TRIMETHOPRIM 47014356032 No Longer Active HEMANTH Griffin Active BACTRIM DS 800-160 MG TABS TAKE ONE TABLET BY MOUTH TWICE DAILY FOR 7 DAYS SULFAMETHOXAZOLE-TRIMETHOPRIM 08363652011 No Longer Active Viviana Lal RN Active CIPRO 250 MG TABS TAKE ONE TABLET BY MOUTH TWICE DAILY FOR 5 DAYS CIPROFLOXACIN HCL 61559376701 No Longer Active Viviana Lal RN Active FLEXERIL 10 MG TABS 1/2 TO 1 TABLET Q12H NEEDED CYCLOBENZAPRINE HCL 29523971878 No Longer Active Viviana Lal RN Active AMLODIPINE BESYLATE 5 MG TABS 1 1/2 daily AMLODIPINE BESYLATE 85669849074 Active Nadir Hector MD Active ONGLYZA 5 MG TABS 1 QAM SAXAGLIPTIN HCL 91523170907 No Longer Active Nadir Hector MD Active AMLODIPINE BESYLATE 5 MG TABS 1 1/2 TABLET DAILY AMLODIPINE BESYLATE 67552521067 No Longer Active Nadir Hector MD Active LORTAB 5-500 MG TABS 1 BY MOUTH Q6H NEEDED HYDROCODONE- ACETAMINOPHEN 63318518689 No Longer Active Nadir Hector MD Active ACTOS 45 MG TABS 1 QD PIOGLITAZONE HCL 93645862496 No Longer Active Nadir Hector MD Active BACTRIM DS 800-160 MG TAB 1 tab by mouth twice daily TRIMETHOPRIM-SULFAMETHOXAZOLE 76847620505 No Longer Active Nadir Hector MD Active CALCIUM + D 600-200 MG-UNIT TABS 1 TABLET TWO TIMES A DAY CALCIUM CARBONATE-VITAMIN D 54272260786 Active Ro Yang RN Active METOPROLOL SUCCINATE 25 MG [id number] 1 QAM METOPROLOL SUCCINATE 19962676612 Active Nadir Hector MD Active AMARYL 4 MG TABS 1 QD GLIMEPIRIDE 60116990680 Active Nadir Hector MD Active LOVASTATIN 40 MG TABS 1 QD LOVASTATIN 89663004730 Active Nadir Hector MD Active GLUCOPHAGE 1000 MG TABS 1 TABLET TWO TIMES A DAY METFORMIN HCL 07068200886 Active Nadir Hector MD Active MAXZIDE-25 37.5-25 MG TABS 1 QD TRIAMTERENE-HCTZ 88626281959 Active Nadir Hector MD Active ACCUPRIL 40 MG TABS 1 QD QUINAPRIL HCL 42708658046 Active Nadir Hector MD Active BACTRIM DS 800-160 MG TAB 1 tab by mouth twice daily BACTRIM DS 800-160 MG TAB TRIMETHOPRIM-SULFAMETHOXAZOLE Inactive ACTOS 45 MG TABS 1 QD ACTOS 45 MG TABS 763192 PIOGLITAZONE HCL Inactive LORTAB 5-500 MG TABS 1 BY MOUTH Q6H NEEDED LORTAB 5-500 MG TABS HYDROCODONE-ACETAMINOPHEN Inactive AMLODIPINE BESYLATE 5 MG TABS 1 1/2 TABLET DAILY AMLODIPINE BESYLATE 5 MG TABS 689583 AMLODIPINE BESYLATE Inactive ONGLYZA 5 MG TABS 1 QAM ONGLYZA 5 MG TABS SAXAGLIPTIN HCL Inactive FLEXERIL 10 MG TABS 1/2 TO 1 TABLET Q12H NEEDED FLEXERIL 10 MG TABS CYCLOBENZAPRINE HCL Inactive CIPRO 250 MG TABS TAKE ONE TABLET BY MOUTH TWICE DAILY FOR 5 DAYS CIPRO 250 MG TABS 915924 CIPROFLOXACIN HCL Inactive BACTRIM DS 800-160 MG TABS TAKE ONE TABLET BY MOUTH TWICE DAILY FOR 7 DAYS BACTRIM DS 800-160 MG TABS SULFAMETHOXAZOLE-TRIMETHOPRIM Inactive BACTRIM DS 800-160 MG TABS one tablet twice a day for seven days BACTRIM DS 800-160 MG TABS SULFAMETHOXAZOLE-TRIMETHOPRIM Inactive MACROBID 100 MG CAP 1 cap by mouth twice daily MACROBID 100 MG CAP 148481 NITROFURANTOIN MONOHYD MACRO Inactive JANUVIA 100 MG TABS Take 1 tab daily JANUVIA 100 MG TABS SITAGLIPTIN PHOSPHATE Inactive GLUCOTROL XL 5 MG [id number] one tablet daily GLUCOTROL XL 5 MG [id number] GLIPIZIDE Inactive MACRODANTIN 100 MG CAPS 1 capsule by mouth twice daily for seven days MACRODANTIN 100 MG CAPS 826647 NITROFURANTOIN MACROCRYSTAL Inactive AMOXICILLIN 500 MG CAPS 2 po BID x 10 days AMOXICILLIN 500 MG CAPS 816484 AMOXICILLIN Inactive BACTRIM DS 800-160 MG TABS 1 po BID x 7 days BACTRIM DS 800-160 MG TABS SULFAMETHOXAZOLE-TRIMETHOPRIM Inactive CIPRO 250 MG TAB 1 tablet by mouth twice daily CIPRO 250 MG TAB 924298 CIPROFLOXACIN HCL Inactive MACROBID 100 MG CAP 1 cap by mouth twice daily MACROBID 100 MG CAP 845659 NITROFURANTOIN MONOHYD MACRO Inactive BACTRIM DS TABS Take 1 po BID BACTRIM DS TABS SULFAMETHOXAZOLE-TRIMETHOPRIM TABS Inactive AMOXICILLIN 500 MG ORAL CAPS tid AMOXICILLIN 500 MG ORAL CAPS 579631 AMOXICILLIN Inactive Advance Directives Directive Description Start Date PERMISSION TO SHARE Immunizations Vaccine Administration Date Value Standard Description pneumococcal immunization administered Pneumovax 23 [CVX33] pneumococcal polysaccharide vaccine, 23 valent Seasonal influenza vaccine, injectable, containing preservative, for > 3 years old (Afluria, FluLaval, Fluzone, Fluvirin, Fluarix, Agriflu(>=18 yo)) Fluzone (>3 yrs.) [[id number]] Influenza, seasonal, injectable Vital Signs Date Name [...] Panel - Chemistry sodium, serum 138 mmol/L 233-172 8503/07/02 potassium, serum 4.5 mmol/L 3.5-5.2 chloride, serum [...] HGBA1C - Chemistry sodium, serum 140 mmol/L 685-525 5080/07/23 potassium, serum 4.5 mmol/L 3.5-5.2 chloride, serum [...] 0.2 Encounters Code Encounter Date Provider Facility CPT-04651 Level 4 New Patient 14:59:23 CDT Catalino Irene MD [facility] CPT-83152 Level 3 Est. Patient 16:43:04 [employer] Nadir Hector MD [facility] CPT-87343 Level 4 Est. Patient 14:21:01 [employer] Nadir Hector MD [facility] CPT-60623 Level 3 Est. Patient 16:41:34 CDT Nadir Hector MD [facility] CPT-92055 Level 4 Est. Patient 13:54:35 [employer] Nadir Hector MD [facility] CPT-79887 Level 3 Est. Patient 15:51:21 CDT Nadir Hector MD [facility] CPT-08594 Level 4 New Patient 15:58:26 CDT Catalino Irene MD [facility] CPT-09105 Level 4 Est. Patient 15:42:38 [employer] Nadir Hector MD [facility] Procedures Code Procedure Name Date Entry Date Standard Description CPT-60309 Urine Dip (Floor Use Only) 14:59:25 CDT CPT-33940 Bladder Scan 14:59:24 CDT CPT-78295 Cystoscopy 14:59:24 CDT CPT-09159 Abd single AP View 12:13:13 CDT CPT-000 Give Pneumovax 14:21:01 [employer] CPT-000 Give Appropriate Flu Vaccine 14:21:01 [employer] CPT-89896 Bone Density 08:41:23 [employer] CPT-000 Give Appropriate Flu Vaccine 13:54:35 [employer] CPT-000 Give Pneumovax 13:54:35 [employer] CPT-80687 Administration 2+ single or combination vaccines inc oral 14:01:24 [employer] [employer] CPT-63762 Administration single or combination vaccine inc oral 14 :01:24 [employer] CPT-60050 Influenza High Dose age 65+ 14:01:24 [employer] CPT-59933 Pneumovax 14:01:24 [employer] CPT-81385 Venipuncture Draw Fee 10:36:48 CDT CPT-000 Give Appropriate Flu Vaccine 15:20:11 [employer] CPT-82792 Administration single or combination vaccine inc oral 15 :50:33 [employer] CPT-47512 Influenza High Dose age 65+ 15:50:33 [employer] CPT-98555 LS spine AP and Lat 15:30:05 [employer] CPT-05711 Hip comp min 2V 15:30:05 [employer] CPT-96558 Postop F/U Visit 17:28:18 CDT CPT-OV Office Visit 15:04:38 CDT CPT-05846 Bladder Scan 15:58:26 CDT CPT-27672 Cystoscopy 15:58:26 CDT CPT-OV Office Visit 16:15:09 CDT CPT-000 Give Appropriate Flu Vaccine 16:33:10 [employer] CPT-44836 Administration single or combination vaccine inc oral 19 :21:12 [employer] CPT-44887 Influenza split virus > age 3 19:21:12 [employer]
--- OUTSIDE RECORDS SUMMARY | 2017-07-23 09:49 | XMS REPORT | Clinical Summary ---
Author Author Admin, FIGS Organization [employer] Address Unknown Phone Unavailable Allergies, Adverse Reactions, [...] MD Routine general medical examination at a [facility] facility PERIPHERAL NEUROPATHY 356.9 Active Nadir Hector [...] TAB 1 tablet by mouth daily FLUCONAZOLE 35801177148 No Longer Active Nadir Hector MD Active BACTRIM DS 800-160 MG ORAL TABS 1 BID for 5 days SULFAMETHOXAZOLE-TRIMETHOPRIM 77844192510 No Longer Active Nadir Hector MD Active CIPRO 250 MG TAB 1 tablet by mouth twice daily CIPROFLOXACIN HCL 74874544593 No Longer Active Ro Buck Active AMOXICILLIN 500 MG ORAL CAPS tid AMOXICILLIN 93970753165 No Longer Active Catalino Irene MD Active BACTRIM DS TABS Take 1 po BID SULFAMETHOXAZOLE- TRIMETHOPRIM TABS 42811563970 No Longer Active Pam Gomez LPN Active MACROBID 100 MG CAP 1 cap by mouth twice daily NITROFURANTOIN MONOHYD MACRO 85602816965 No Longer Active Pam Gomez LPN Active CIPRO 250 MG TAB 1 tablet by mouth twice daily CIPROFLOXACIN HCL 61903418617 No Longer Active Pam Gomez LPN Active JANUVIA 100 MG ORAL TABS 1 daily SITAGLIPTIN PHOSPHATE 04298084312 Active Nadir Hector MD Active GLUCOTROL XL 5 MG [id number] one tablet daily GLIPIZIDE 86541687791 No Longer Active Nadir Hector MD Active BACTRIM DS 800-160 MG TABS 1 po BID x 7 days SULFAMETHOXAZOLE-TRIMETHOPRIM 88881352982 No Longer Active Jamal Burrell MD Active FOSAMAX 70 MG TABS 1 po qweek. Take 30min prior to first food/drink. Avoid lying down x 1 hour. ALENDRONATE SODIUM 11217013513 Active Nadir Hector MD Active AMOXICILLIN 500 MG CAPS 2 po BID x 10 days AMOXICILLIN 25930350466 No Longer Active Nadir Hector MD Active JANUVIA 100 MG TABS 1 tablet by mouth daily SITAGLIPTIN PHOSPHATE 21701664381 No Longer Active Nadir Hector MD Active JANUVIA 100 MG TABS Take 1 tab daily SITAGLIPTIN PHOSPHATE 24211440822 No Longer Active Sharon Nuñez Active MACROBID 100 MG CAP 1 cap by mouth twice daily NITROFURANTOIN MONOHYD MACRO 58052693507 No Longer Active Crystal Fernández CESAR Active MACRODANTIN 100 MG CAPS 1 capsule by mouth twice daily for seven days NITROFURANTOIN MACROCRYSTAL 41410980589 No Longer Active Ro Yang RN Active BACTRIM DS 800-160 MG TABS one tablet twice a day for seven days SULFAMETHOXAZOLE-TRIMETHOPRIM 66495881328 No Longer Active HEMANTH Griffin Active BACTRIM DS 800-160 MG TABS TAKE ONE TABLET BY MOUTH TWICE DAILY FOR 7 DAYS SULFAMETHOXAZOLE-TRIMETHOPRIM 94436165806 No Longer Active Viviana Lal RN Active CIPRO 250 MG TABS TAKE ONE TABLET BY MOUTH TWICE DAILY FOR 5 DAYS CIPROFLOXACIN HCL 50989289582 No Longer Active Viviana Lal RN Active FLEXERIL 10 MG TABS 1/2 TO 1 TABLET Q12H NEEDED CYCLOBENZAPRINE HCL 63403622062 No Longer Active Viviana Lal RN Active AMLODIPINE BESYLATE 5 MG TABS 1 1/2 daily AMLODIPINE BESYLATE 53133334932 Active Nadir Hector MD Active ONGLYZA 5 MG TABS 1 QAM SAXAGLIPTIN HCL 35675090516 No Longer Active Nadir Hector MD Active AMLODIPINE BESYLATE 5 MG TABS 1 1/2 TABLET DAILY AMLODIPINE BESYLATE 15699433100 No Longer Active Nadir Hector MD Active LORTAB 5-500 MG TABS 1 BY MOUTH Q6H NEEDED HYDROCODONE- ACETAMINOPHEN 46508737800 No Longer Active Nadir Hector MD Active ACTOS 45 MG TABS 1 QD PIOGLITAZONE HCL 46169775561 No Longer Active Nadir Hector MD Active BACTRIM DS 800-160 MG TAB 1 tab by mouth twice daily TRIMETHOPRIM-SULFAMETHOXAZOLE 32275628943 No Longer Active Nadir Hector MD Active CALCIUM + D 600-200 MG-UNIT TABS 1 TABLET TWO TIMES A DAY CALCIUM CARBONATE-VITAMIN D 53585708734 Active Ro Yang RN Active METOPROLOL SUCCINATE 25 MG [id number] 1 QAM METOPROLOL SUCCINATE 31290634609 Active Nadir Hector MD Active AMARYL 4 MG TABS 1 QD GLIMEPIRIDE 76911308110 Active Nadir Hector MD Active LOVASTATIN 40 MG TABS 1 QD LOVASTATIN 93386373153 Active Nadir Hector MD Active GLUCOPHAGE 1000 MG TABS 1 TABLET TWO TIMES A DAY METFORMIN HCL 02453892326 Active Nadir Hector MD Active MAXZIDE-25 37.5-25 MG TABS 1 QD TRIAMTERENE-HCTZ 93190350810 Active Nadir Hector MD Active ACCUPRIL 40 MG TABS 1 QD QUINAPRIL HCL 87338105341 Active Nadir Hector MD Active BACTRIM DS 800-160 MG TAB 1 tab by mouth twice daily BACTRIM DS 800-160 MG TAB 19820615 TRIMETHOPRIM-SULFAMETHOXAZOLE Inactive ACTOS 45 MG TABS 1 QD ACTOS 45 MG TABS 162097 PIOGLITAZONE HCL Inactive LORTAB 5-500 MG TABS 1 BY MOUTH Q6H NEEDED LORTAB 5-500 MG TABS HYDROCODONE-ACETAMINOPHEN Inactive AMLODIPINE BESYLATE 5 MG TABS 1 1/2 TABLET DAILY AMLODIPINE BESYLATE 5 MG TABS 881459 AMLODIPINE BESYLATE Inactive ONGLYZA 5 MG TABS [...] mouth twice daily MACROBID 100 MG CAP 7675810 NITROFURANTOIN MONOHYD MACRO Inactive JANUVIA 100 MG TABS Take 1 tab daily JANUVIA 100 MG TABS SITAGLIPTIN PHOSPHATE Inactive GLUCOTROL XL 5 MG [id number] one tablet daily GLUCOTROL XL 5 MG [id number] GLIPIZIDE Inactive BACTRIM DS 800-160 MG ORAL TABS 1 BID for 5 days BACTRIM DS 800-160 MG ORAL TABS 19820615 SULFAMETHOXAZOLE-TRIMETHOPRIM Inactive DIFLUCAN 150 MG TAB 1 tablet by mouth daily DIFLUCAN 150 MG TAB 128451 FLUCONAZOLE Inactive MACRODANTIN 100 MG CAPS 1 capsule by mouth twice daily for seven days MACRODANTIN 100 MG CAPS 5351968 NITROFURANTOIN MACROCRYSTAL Inactive AMOXICILLIN 500 MG CAPS 2 po BID x 10 days AMOXICILLIN 500 MG CAPS 113370 AMOXICILLIN Inactive BACTRIM DS 800-160 MG TABS 1 po BID x 7 days BACTRIM DS 800-160 MG TABS 178389 SULFAMETHOXAZOLE-TRIMETHOPRIM Inactive CIPRO 250 MG TAB 1 tablet by mouth twice daily CIPRO 250 MG TAB 339495 CIPROFLOXACIN HCL Inactive MACROBID 100 MG CAP 1 cap by mouth twice daily MACROBID 100 MG CAP 7014965 NITROFURANTOIN MONOHYD MACRO Inactive BACTRIM DS TABS Take 1 po BID BACTRIM DS TABS SULFAMETHOXAZOLE-TRIMETHOPRIM TABS Inactive AMOXICILLIN 500 MG ORAL CAPS tid AMOXICILLIN 500 MG ORAL CAPS 231497 AMOXICILLIN Inactive CIPRO 250 MG TAB 1 tablet by mouth twice daily CIPRO 250 MG TAB 898244 CIPROFLOXACIN HCL Inactive Advance Directives Directive Description Start Date PERMISSION TO SHARE Immunizations Vaccine Administration Date Value Standard Description pneumococcal immunization administered Pneumovax 23 [CVX33] pneumococcal polysaccharide vaccine, 23 valent Seasonal influenza vaccine, injectable, containing preservative, for > 3 years old (Afluria, FluLaval, Fluzone, Fluvirin, Fluarix, Agriflu(>=18 yo)) Fluzone (>3 yrs.) [[id number]] Influenza, seasonal, injectable Diagnostic Results Date Name Value Unit Range [...] % 11.0-15.0 platelet count 931 THOUSAND/UL 10*3/mm3 493-664 4726/05/09 mean platelet volume 5.9 fL 7.5-12.5 Encounters Code Encounter Date Provider Facility CPT-35248 Level 3 Est. Patient 13:06:50 CDT Catalino Irene MD [facility] CPT-29827 Level 4 Est. Patient 19:00:26 CDT Catalino Irene MD [facility] CPT-28427 Level 2 Est. Patient 07:03:19 CDT Catalino Irene MD [facility] CPT-30708 Level 4 Est. Patient 09:54:20 CDT Nadir Hector MD [facility] CPT-64288 Level 2 Est. Patient 18:56:33 CDT Catalino Irene MD [facility] CPT-96201 Level 4 New Patient 14:59:23 CDT Catalino Irene MD [facility] CPT-16879 Level 3 Est. 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 Patient 14:21:01 DENTAL HYGIENIST MOBILE COORDINATOR Nadir Hector MD [facility] CPT-82069 Level 3 Est. Patient 16:41:34 CDT Nadir Hector MD [facility] CPT-59150 Level 4 Est. Patient 13:54:35 DENTAL HYGIENIST MOBILE COORDINATOR Nadir Hector MD [facility] CPT-17193 Level 3 Est. Patient 15:51:21 CDT Nadir Hector MD [facility] CPT-60211 Level 4 New Patient 15:58:26 CDT Catalino Irene MD [facility] CPT-98072 Level 4 Est. Patient 15:42:38 DENTAL HYGIENIST MOBILE COORDINATOR Nadir Hector MD [facility] Procedures Code Procedure Name Date Entry Date Standard Description CPT-06361 Urine Dip (Floor Use Only) 18:56:34 CDT CPT-41746 Urine Dip (Floor Use Only) 14:21:22 CDT CPT-J0561 Bicillin LA 1,200,000 u (PCN G Benzathine) 13:16:19 CDT CPT-52848 Abx/Therapy Injection 13:16:19 CDT CPT-42346 Urine Dip (Floor Use Only) 14:59:25 CDT CPT-49103 Bladder Scan 14:59:24 CDT CPT-07948 Cystoscopy 14:59:24 CDT CPT-73853 Abd single AP View 12:13:13 CDT CPT-000 Give Pneumovax 14:21:01 DENTAL HYGIENIST MOBILE COORDINATOR CPT-000 Give Appropriate Flu Vaccine 14:21:01 DENTAL HYGIENIST MOBILE COORDINATOR CPT-65327 Bone Density 08:41:23 DENTAL HYGIENIST MOBILE COORDINATOR CPT-000 Give Appropriate Flu Vaccine 13:54:35 DENTAL HYGIENIST MOBILE COORDINATOR CPT-000 Give Pneumovax 13:54:35 DENTAL HYGIENIST MOBILE COORDINATOR CPT-19119 Administration 2+ single or combination vaccines inc oral 14:01:24 DENTAL HYGIENIST MOBILE COORDINATOR CPT-33280 Administration single or combination vaccine inc oral 14 :01:24 DENTAL HYGIENIST MOBILE COORDINATOR CPT-65669 Influenza High Dose age 65+ 14:01:24 DENTAL HYGIENIST MOBILE COORDINATOR CPT-59180 Pneumovax 14:01:24 DENTAL HYGIENIST MOBILE COORDINATOR CPT-18384 Venipuncture Draw Fee 10:36:48 CDT CPT-000 Give Appropriate Flu Vaccine 15:20:11 DENTAL HYGIENIST MOBILE COORDINATOR CPT-05122 Administration single or combination vaccine inc oral 15 :50:33 DENTAL HYGIENIST MOBILE COORDINATOR CPT-67044 Influenza High Dose age 65+ 15:50:33 DENTAL HYGIENIST MOBILE COORDINATOR CPT-68465 LS spine AP and Lat 15:30:05 DENTAL HYGIENIST MOBILE COORDINATOR CPT-44682 Hip comp min 2V 15:30:05 DENTAL HYGIENIST MOBILE COORDINATOR CPT-21086 Postop F/U Visit 17:28:18 CDT CPT-OV Office Visit 15:04:38 CDT CPT-07724 Bladder Scan 15:58:26 CDT CPT-44427 Cystoscopy 15:58:26 CDT CPT-OV Office Visit 16:15:09 CDT CPT-000 Give Appropriate Flu Vaccine 16:33:10 DENTAL HYGIENIST MOBILE COORDINATOR CPT-83232 Administration single or combination vaccine inc oral 19 :21:12 DENTAL HYGIENIST MOBILE COORDINATOR CPT-15628 Influenza split virus > age 3 19:21:12 DENTAL HYGIENIST MOBILE COORDINATOR
--- OUTSIDE RECORDS SUMMARY | 2017-07-23 09:50 | XMS REPORT | Clinical Summary ---
Author Author Admin, IMTIAZ Organization [facility] Address Unknown Phone Unavailable Allergies, Adverse Reactions, [...] MD Routine general medical examination at a [facility] care facility PERIPHERAL NEUROPATHY 356.9 [...] infection, site not specified 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 Ctaalino Irene MD Methicillin resistant Staphylococcus aureus infection [...] tablet by mouth twice daily CIPROFLOXACIN HCL 70032704390 Active Ro Meyer Active BACTRIM DS 800-160 MG ORAL TABS 1 BID for 5 days SULFAMETHOXAZOLE-TRIMETHOPRIM 55748397120 Active Catalino Irene MD Active AMOXICILLIN 500 MG ORAL CAPS tid AMOXICILLIN 91110012236 No Longer Active Catalino Irene MD Active BACTRIM DS TABS Take 1 po BID SULFAMETHOXAZOLE- TRIMETHOPRIM TABS 33843533844 No Longer Active Pam ALEAH GomezN Active MACROBID 100 MG CAP 1 cap by mouth twice daily NITROFURANTOIN MONOHYD MACRO 44226806688 No Longer Active Pam Gomez BLUEPRINTER Active DIFLUCAN 150 MG TAB 1 tablet by mouth daily FLUCONAZOLE 51112776545 Active Pam Gomez BLUEPRINTER Active CIPRO 250 MG TAB 1 tablet by mouth twice daily CIPROFLOXACIN HCL 64438814576 No Longer Active Pam Gomez BLUEPRINTER Active JANUVIA 100 MG ORAL TABS 1 daily SITAGLIPTIN PHOSPHATE 57277760290 Active Nadir Hector MD Active GLUCOTROL XL 5 MG [id number] one tablet daily GLIPIZIDE 89167887632 No Longer Active Nadir Hector MD Active BACTRIM DS 800-160 MG TABS 1 po BID x 7 days SULFAMETHOXAZOLE-TRIMETHOPRIM 58692904949 No Longer Active Jamal Burrell MD Active FOSAMAX 70 MG TABS 1 po qweek. Take 30min prior to first food/drink. Avoid lying down x 1 hour. ALENDRONATE SODIUM 80894892790 Active Nadir Hector MD Active AMOXICILLIN 500 MG CAPS 2 po BID x 10 days AMOXICILLIN 05349655184 No Longer Active Nadir Hector MD Active JANUVIA 100 MG TABS 1 tablet by mouth daily SITAGLIPTIN PHOSPHATE 69937545678 No Longer Active Nadir Hector MD Active JANUVIA 100 MG TABS Take 1 tab daily SITAGLIPTIN PHOSPHATE 57283202137 No Longer Active Sharon Nuñez Active MACROBID 100 MG CAP 1 cap by mouth twice daily NITROFURANTOIN MONOHYD MACRO 76020590201 No Longer Active Crystal Fernández APRN Active MACRODANTIN 100 MG CAPS 1 capsule by mouth twice daily for seven days NITROFURANTOIN MACROCRYSTAL 65334613976 No Longer Active oR Yang RN Active BACTRIM DS 800-160 MG TABS one tablet twice a day for seven days SULFAMETHOXAZOLE-TRIMETHOPRIM 21933793633 No Longer Active Sancho ANIYA CamejoFiorella Active BACTRIM DS 800-160 MG TABS TAKE ONE TABLET BY MOUTH TWICE DAILY FOR 7 DAYS SULFAMETHOXAZOLE-TRIMETHOPRIM 88580337458 No Longer Active Viviana Lal RN Active CIPRO 250 MG TABS TAKE ONE TABLET BY MOUTH TWICE DAILY FOR 5 DAYS CIPROFLOXACIN HCL 82798038709 No Longer Active Viviana Lal RN Active FLEXERIL 10 MG TABS 1/2 TO 1 TABLET Q12H NEEDED CYCLOBENZAPRINE HCL 12066570607 No Longer Active Viviana Lal RN Active AMLODIPINE BESYLATE 5 MG TABS 1 1/2 daily AMLODIPINE BESYLATE 41575451499 Active Nadir Hector MD Active ONGLYZA 5 MG TABS 1 QAM SAXAGLIPTIN HCL 43945381700 No Longer Active Nadir Hector MD Active AMLODIPINE BESYLATE 5 MG TABS 1 1/2 TABLET DAILY AMLODIPINE BESYLATE 28298171543 No Longer Active Nadir Hector MD Active LORTAB 5-500 MG TABS 1 BY MOUTH Q6H NEEDED HYDROCODONE- ACETAMINOPHEN 25759093056 No Longer Active Nadir Hector MD Active ACTOS 45 MG TABS 1 QD PIOGLITAZONE HCL 22414928322 No Longer Active Nadir Hector MD Active BACTRIM DS 800-160 MG TAB 1 tab by mouth twice daily TRIMETHOPRIM-SULFAMETHOXAZOLE 82512511550 No Longer Active Nadir Hector MD Active CALCIUM + D 600-200 MG-UNIT TABS 1 TABLET TWO TIMES A DAY CALCIUM CARBONATE-VITAMIN D 60589390988 Active Ro Yang RN Active METOPROLOL SUCCINATE 25 MG [id number] 1 QAM METOPROLOL SUCCINATE 44547659730 Active Nadir Hector MD Active AMARYL 4 MG TABS 1 QD GLIMEPIRIDE 49345127843 Active Nadir Hector MD Active LOVASTATIN 40 MG TABS 1 QD LOVASTATIN 20659967152 Active Nadir Hector MD Active GLUCOPHAGE 1000 MG TABS 1 TABLET TWO TIMES A DAY METFORMIN HCL 87369506928 Active Nadir Hector MD Active MAXZIDE-25 37.5-25 MG TABS 1 QD TRIAMTERENE-HCTZ 51370766018 Active Nadir Hector MD Active ACCUPRIL 40 MG TABS 1 QD QUINAPRIL HCL 39874074410 Active Nadir Hector MD Active BACTRIM DS 800-160 MG TAB 1 tab by mouth twice daily BACTRIM DS 800-160 MG TAB TRIMETHOPRIM-SULFAMETHOXAZOLE Inactive ACTOS 45 MG TABS 1 QD ACTOS 45 MG TABS 552367 PIOGLITAZONE HCL Inactive LORTAB 5-500 MG TABS 1 BY MOUTH Q6H NEEDED LORTAB 5-500 MG TABS HYDROCODONE-ACETAMINOPHEN Inactive AMLODIPINE BESYLATE 5 MG TABS 1 1/2 TABLET DAILY AMLODIPINE BESYLATE 5 MG TABS 612381 AMLODIPINE BESYLATE Inactive ONGLYZA 5 MG TABS 1 QAM ONGLYZA 5 MG TABS SAXAGLIPTIN HCL Inactive FLEXERIL 10 MG TABS 1/2 TO 1 TABLET Q12H NEEDED FLEXERIL 10 MG TABS CYCLOBENZAPRINE HCL Inactive CIPRO 250 MG TABS TAKE ONE TABLET BY MOUTH TWICE DAILY FOR 5 DAYS CIPRO 250 MG TABS 848167 CIPROFLOXACIN HCL Inactive BACTRIM DS 800-160 MG TABS TAKE ONE TABLET BY MOUTH TWICE DAILY FOR 7 DAYS BACTRIM DS 800-160 MG TABS SULFAMETHOXAZOLE-TRIMETHOPRIM Inactive BACTRIM DS 800-160 MG TABS one tablet twice a day for seven days BACTRIM DS 800-160 MG TABS SULFAMETHOXAZOLE-TRIMETHOPRIM Inactive MACROBID 100 MG CAP 1 cap by mouth twice daily MACROBID 100 MG CAP 6242596 NITROFURANTOIN MONOHYD MACRO Inactive JANUVIA 100 MG TABS Take 1 tab daily JANUVIA 100 MG TABS SITAGLIPTIN PHOSPHATE Inactive GLUCOTROL XL 5 MG [id number] one tablet daily GLUCOTROL XL 5 MG [id number] GLIPIZIDE Inactive MACRODANTIN 100 MG CAPS 1 capsule by mouth twice daily for seven days MACRODANTIN 100 MG CAPS 8479149 NITROFURANTOIN MACROCRYSTAL Inactive AMOXICILLIN 500 MG CAPS 2 po BID x 10 days AMOXICILLIN 500 MG CAPS 017187 AMOXICILLIN Inactive BACTRIM DS 800-160 MG TABS 1 po BID x 7 days BACTRIM DS 800-160 MG TABS SULFAMETHOXAZOLE-TRIMETHOPRIM Inactive CIPRO 250 MG TAB 1 tablet by mouth twice daily CIPRO 250 MG TAB 572169 CIPROFLOXACIN HCL Inactive MACROBID 100 MG CAP 1 cap by mouth twice daily MACROBID 100 MG CAP 4443788 NITROFURANTOIN MONOHYD MACRO Inactive BACTRIM DS TABS Take 1 po BID BACTRIM DS TABS SULFAMETHOXAZOLE-TRIMETHOPRIM TABS Inactive AMOXICILLIN 500 MG ORAL CAPS tid AMOXICILLIN 500 MG ORAL CAPS 696090 AMOXICILLIN Inactive Advance Directives Directive Description Start Date PERMISSION TO SHARE Immunizations Vaccine Administration Date Value Standard Description pneumococcal immunization administered Pneumovax 23 [CVX33] pneumococcal polysaccharide vaccine, 23 valent Seasonal influenza vaccine, injectable, containing preservative, for > 3 years old (Afluria, FluLaval, Fluzone, Fluvirin, Fluarix, Agriflu(>=18 yo)) Fluzone (>3 yrs.) [IWF494] Influenza, seasonal, injectable Vital Signs Date Name [...] Panel - Chemistry sodium, serum 138 mmol/L 623-876 9238/07/02 potassium, serum 4.5 mmol/L 3.5-5.2 chloride, serum [...] total hemoglobin 7.7 % 4.3-6.0 Lab Report: Lipid Panel, Comp. Metabolic Panel, [facility] - Chemistry cholesterol, serum 147 mg/dL 828-893 3960/08/18 triglyceride, serum, fasting 242 mg/dL 30-200 HDL cholesterol, serum 36 mg/dL 32-96 LDL cholesterol, serum 63 mg/dL 0-130 sodium, serum 137 mmol/L 317-165 4577/08/18 potassium, serum 4.7 mmol/L 3.5-5.2 chloride, serum [...] nitrite, urine, semiquantitative Negative Negative urine color Straw Colorless;Lightyellow;Straw;Yellow appearance, urine Cloudy Clear specific gravity, urine 1.025 1.000-1.030 pH, urine, semiquantitative 6.0 5.0-8.5 Lab Report: UADIP W/MICRO, AUTO - Chemistry protein, total urine random 2+ mg/dL Negative RBC, urine, dipstick 3+ Negative protein, total urine random 1+ mg/dL Negative protein, total urine random 2+ mg/dL Negative RBC, urine, dipstick 2+ Negative protein, total urine random 3+ mg/dL Negative RBC, urine, dipstick 3+ Negative RBC, urine, dipstick 3+ Negative RBC, [...] 3+ Negative nitrite, urine, semiquantitative Negative Negative pH, [...] semiquantitative 5.5 5.0-8.5 urine color Yellow Colorless;Lightyellow;Straw;Yellow appearance, urine [...] 0.2 Encounters Code Encounter Date Provider Facility CPT-45634 Level 2 Est. Patient 18:56:33 CDT Catalino Irene MD [facility] CPT-41336 Level 4 New Patient 14:59:23 CDT Catalino Irene MD [facility] CPT-44198 Level 3 Est. Patient 16:43:04 MOLD BREAKER Nadir Hector MD [facility] CPT-31618 Level 4 Est. Patient 14:21:01 MOLD BREAKER Nadir Hector MD [facility] CPT-89525 Level 3 Est. Patient 16:41:34 CDT Nadir Hector MD [facility] CPT-48089 Level 4 Est. Patient 13:54:35 MOLD BREAKER Nadir Hector MD [facility] CPT-50145 Level 3 Est. Patient 15:51:21 CDT Nadir Hector MD [facility] CPT-09222 Level 4 New Patient 15:58:26 CDT Catalino Irene MD [facility] CPT-24677 Level 4 Est. Patient 15:42:38 MOLD BREAKER Nadir Hector MD [facility] Procedures Code Procedure Name Date Entry Date Standard Description CPT-65734 Urine Dip (Floor Use Only) 18:56:34 CDT CPT-11898 Urine Dip (Floor Use Only) 14:21:22 CDT CPT-J0561 Bicillin LA 1,200,000 u (PCN G Benzathine) 13:16:19 CDT CPT-94832 Abx/Therapy Injection 13:16:19 CDT CPT-14106 Urine Dip (Floor Use Only) 14:59:25 CDT CPT-37342 Bladder Scan 14:59:24 CDT CPT-14235 Cystoscopy 14:59:24 CDT CPT-32859 Abd single AP View 12:13:13 CDT CPT-000 Give Pneumovax 14:21:01 MOLD BREAKER CPT-000 Give Appropriate Flu Vaccine 14:21:01 MOLD BREAKER CPT-27563 Bone Density 08:41:23 MOLD BREAKER CPT-000 Give Appropriate Flu Vaccine 13:54:35 MOLD BREAKER CPT-000 Give Pneumovax 13:54:35 MOLD BREAKER CPT-99975 Administration 2+ single or combination vaccines inc oral 14:01:24 MOLD BREAKER CPT-51390 Administration single or combination vaccine inc oral 14 :01:24 MOLD BREAKER CPT-32619 Influenza High Dose age 65+ 14:01:24 MOLD BREAKER CPT-96052 Pneumovax 14:01:24 MOLD BREAKER CPT-79288 Venipuncture Draw Fee 10:36:48 CDT CPT-000 Give Appropriate Flu Vaccine 15:20:11 MOLD BREAKER CPT-28676 Administration single or combination vaccine inc oral 15 :50:33 MOLD BREAKER CPT-99462 Influenza High Dose age 65+ 15:50:33 MOLD BREAKER CPT-62487 LS spine AP and Lat 15:30:05 MOLD BREAKER CPT-91935 Hip comp min 2V 15:30:05 MOLD BREAKER CPT-35528 Postop F/U Visit 17:28:18 CDT CPT-OV Office Visit 15:04:38 CDT CPT-79535 Bladder Scan 15:58:26 CDT CPT-41292 Cystoscopy 15:58:26 CDT CPT-OV Office Visit 16:15:09 CDT CPT-000 Give Appropriate Flu Vaccine 16:33:10 MOLD BREAKER CPT-98301 Administration single or combination vaccine inc oral 19 :21:12 MOLD BREAKER CPT-58580 Influenza split virus > age 3 19:21:12 MOLD BREAKER
--- OUTSIDE RECORDS SUMMARY | 2017-07-23 09:50 | XMS REPORT | Clinical Summary ---
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 Take 30min prior to first food/drink. Avoid lying down x 1 hour. ALENDRONATE SODIUM 16618078931 Active Nadir Hector MD Active AMOXICILLIN 500 MG CAPS 2 po BID x 10 days AMOXICILLIN 15552909444 No Longer Active Nadir Hector MD Active JANUVIA 100 MG TABS 1 tablet by mouth daily SITAGLIPTIN PHOSPHATE 64574720336 No Longer Active Nadir Hector MD Active JANUVIA 100 MG TABS Take 1 tab daily SITAGLIPTIN PHOSPHATE 00344882780 No Longer Active Sharon Nuñez Active MACROBID 100 MG CAP 1 cap by mouth twice daily NITROFURANTOIN MONOHYD MACRO 06041084471 No Longer Active Crystal Fernández APRN Active MACRODANTIN 100 MG CAPS 1 capsule by mouth twice daily for seven days NITROFURANTOIN MACROCRYSTAL 28553846401 No Longer Active Ro Yang RN Active BACTRIM DS 800-160 MG TABS one tablet twice a day for seven days SULFAMETHOXAZOLE-TRIMETHOPRIM 11075068120 No Longer Active HEMANTH Griffin Active BACTRIM DS 800-160 MG TABS TAKE ONE TABLET BY MOUTH TWICE DAILY FOR 7 DAYS SULFAMETHOXAZOLE-TRIMETHOPRIM 88912405367 No Longer Active Viviana Lal RN Active CIPRO 250 MG TABS TAKE ONE TABLET BY MOUTH TWICE DAILY FOR 5 DAYS CIPROFLOXACIN HCL 15781300107 No Longer Active Viviana Lal RN Active FLEXERIL 10 MG TABS 1/2 TO 1 TABLET Q12H NEEDED CYCLOBENZAPRINE HCL 51646432057 No Longer Active Viviana Lal RN Active AMLODIPINE BESYLATE 5 MG TABS 1 1/2 daily AMLODIPINE BESYLATE 94012495024 Active Nadir Hector MD Active ONGLYZA 5 MG TABS 1 QAM SAXAGLIPTIN HCL 24669608402 No Longer Active Nadir Hector MD Active AMLODIPINE BESYLATE 5 MG TABS 1 1/2 TABLET DAILY AMLODIPINE BESYLATE 90794785192 No Longer Active Nadir Hector MD Active LORTAB 5-500 MG TABS 1 BY MOUTH Q6H NEEDED HYDROCODONE- ACETAMINOPHEN 22180799397 No Longer Active Nadir Hector MD Active ACTOS 45 MG TABS 1 QD PIOGLITAZONE HCL 99949092192 No Longer Active Nadir Hector MD Active BACTRIM DS 800-160 MG TAB 1 tab by mouth twice daily TRIMETHOPRIM-SULFAMETHOXAZOLE 84653045189 No Longer Active Nadir Hector MD Active CALCIUM + D 600-200 MG-UNIT TABS 1 TABLET TWO TIMES A DAY CALCIUM CARBONATE-VITAMIN D 61165918992 Active Ro Yang RN Active METOPROLOL SUCCINATE 25 MG [id number] 1 QAM METOPROLOL SUCCINATE 68241525017 Active Nadir Hector MD Active AMARYL 4 MG TABS 1 QD GLIMEPIRIDE 48985698100 Active Nadir Hector MD Active LOVASTATIN 40 MG TABS 1 QD LOVASTATIN 00410292678 Active Nadir Hector MD Active GLUCOPHAGE 1000 MG TABS 1 TABLET TWO TIMES A DAY METFORMIN HCL 27434127302 Active Nadir Hector MD Active MAXZIDE-25 37.5-25 MG TABS 1 QD TRIAMTERENE-HCTZ 39691433231 Active Nadir Hector MD Active ACCUPRIL 40 MG TABS 1 QD QUINAPRIL HCL 45321485590 Active Nadir Hector MD Active BACTRIM DS 800-160 MG TAB 1 tab by mouth twice daily BACTRIM DS 800-160 MG TAB TRIMETHOPRIM-SULFAMETHOXAZOLE Inactive ACTOS 45 MG TABS 1 QD ACTOS 45 MG TABS 403860 PIOGLITAZONE HCL Inactive LORTAB 5-500 MG TABS 1 BY MOUTH Q6H NEEDED LORTAB 5-500 MG TABS HYDROCODONE-ACETAMINOPHEN Inactive AMLODIPINE BESYLATE 5 MG TABS 1 1/2 TABLET DAILY AMLODIPINE BESYLATE 5 MG TABS 361191 AMLODIPINE BESYLATE Inactive ONGLYZA 5 MG TABS [...] mouth twice daily MACROBID 100 MG CAP 708495 NITROFURANTOIN MONOHYD MACRO Inactive JANUVIA 100 MG TABS Take 1 tab daily JANUVIA 100 MG TABS SITAGLIPTIN PHOSPHATE Inactive GLUCOTROL XL 5 MG [id number] one tablet daily GLUCOTROL XL 5 MG [id number] GLIPIZIDE Inactive MACRODANTIN 100 MG CAPS 1 capsule by mouth twice daily for seven days MACRODANTIN 100 MG CAPS 132567 NITROFURANTOIN MACROCRYSTAL Inactive AMOXICILLIN 500 MG CAPS 2 po BID x 10 days AMOXICILLIN 500 MG CAPS 105457 AMOXICILLIN Inactive BACTRIM DS 800-160 MG TABS 1 po BID x 7 days BACTRIM DS 800-160 MG TABS SULFAMETHOXAZOLE-TRIMETHOPRIM Inactive CIPRO 250 MG TAB 1 tablet by mouth twice daily CIPRO 250 MG TAB 19740413 CIPROFLOXACIN HCL Inactive MACROBID 100 MG CAP 1 cap by mouth twice daily MACROBID 100 MG CAP 606629 NITROFURANTOIN MONOHYD MACRO Inactive Advance Directives Directive Description Start Date PERMISSION TO SHARE Immunizations Vaccine Administration Date Value Standard Description pneumococcal immunization administered Pneumovax 23 [CVX33] pneumococcal polysaccharide vaccine, 23 valent Seasonal influenza vaccine, injectable, containing preservative, for > 3 years old (Afluria, FluLaval, Fluzone, Fluvirin, Fluarix, Agriflu(>=18 yo)) Fluzone (>3 yrs.) [[id number]] Influenza, seasonal, injectable Vital Signs Date Name [...] HGBA1C - Chemistry sodium, serum 140 mmol/L 259-685 9586/07/23 potassium, serum 4.5 mmol/L 3.5-5.2 chloride, serum [...] 5.0-8.5 Encounters Code Encounter Date Provider Facility CPT-01652 Level 3 Est. Patient 16:43:04 SKI PATROL Naidr Hector MD [facility] CPT-23670 Level 4 Est. Patient 14:21:01 SKI PATROL Nadir Hector MD [facility] CPT-93034 Level 3 Est. Patient 16:41:34 CDT Nadir Hector MD [facility] CPT-88812 Level 4 Est. Patient 13:54:35 SKI PATROL Nadir Hector MD [facility] CPT-61103 Level 3 Est. Patient 15:51:21 CDT Nadir Hector MD [facility] CPT-83531 Level 4 New Patient 15:58:26 CDT [facility]ino [facility] CPT-35226 Level 4 Est. Patient 15:42:38 SKI PATROL Nadir Hector MD [facility] Procedures Code Procedure Name Date Entry Date Standard Description CPT-000 Give Pneumovax 14:21:01 SKI PATROL CPT-000 Give Appropriate Flu Vaccine 14:21:01 SKI PATROL CPT-67799 Bone Density 08:41:23 SKI PATROL CPT-000 Give Appropriate Flu Vaccine 13:54:35 SKI PATROL CPT-000 Give Pneumovax 13:54:35 SKI PATROL CPT-46935 Administration 2+ single or combination vaccines inc oral 14:01:24 SKI PATROL CPT-57484 Administration single or combination vaccine inc oral 14 :01:24 SKI PATROL CPT-93285 Influenza High Dose age 65+ 14:01:24 SKI PATROL CPT-47627 Pneumovax 14:01:24 SKI PATROL CPT-17146 Venipuncture Draw Fee 10:36:48 CDT CPT-000 Give Appropriate Flu Vaccine 15:20:11 SKI PATROL CPT-00883 Administration single or combination vaccine inc oral 15 :50:33 SKI PATROL CPT-30332 Influenza High Dose age 65+ 15:50:33 SKI PATROL CPT-15948 LS spine AP and Lat 15:30:05 SKI PATROL CPT-15682 Hip comp min 2V 15:30:05 SKI PATROL CPT-39619 Postop F/U Visit 17:28:18 CDT CPT-OV Office Visit 15:04:38 CDT CPT-00882 Bladder Scan 15:58:26 CDT CPT-00935 Cystoscopy 15:58:26 CDT CPT-OV Office Visit 16:15:09 CDT CPT-000 Give Appropriate Flu Vaccine 16:33:10 SKI PATROL CPT-58524 Administration single or combination vaccine inc oral 19 :21:12 SKI PATROL CPT-25759 Influenza split virus > age 3 19:21:12 SKI PATROL
--- OUTSIDE RECORDS SUMMARY | 2017-07-23 09:52 | XMS REPORT | Clinical Summary ---
Author Author Admin, IMTIAZ Organization [facility] Address Unknown Phone Unavailable [...] MD Routine general medical examination at a [facility] care facility PERIPHERAL NEUROPATHY 356.9 Active [...] TABS 1 BID for 5 days SULFAMETHOXAZOLE-TRIMETHOPRIM 40542232320 Active Catalino Irene MD Active AMOXICILLIN 500 MG ORAL CAPS tid AMOXICILLIN 35519706057 No Longer Active Catalino Irene MD Active BACTRIM DS TABS Take 1 po BID SULFAMETHOXAZOLE- TRIMETHOPRIM TABS 69549165756 No Longer Active Pam Gomez LPN Active MACROBID 100 MG CAP 1 cap by mouth twice daily NITROFURANTOIN MONOHYD MACRO 47908181349 No Longer Active Pam Gomez LPN Active DIFLUCAN 150 MG TAB 1 tablet by mouth daily FLUCONAZOLE 19567470150 Active Pam Gomez LPN Active CIPRO 250 MG TAB 1 tablet by mouth twice daily CIPROFLOXACIN HCL 30270836728 No Longer Active Pam Gomez LPN Active JANUVIA 100 MG ORAL TABS 1 daily SITAGLIPTIN PHOSPHATE 40505678280 Active Nadir Hector MD Active GLUCOTROL XL 5 MG [id number] one tablet daily GLIPIZIDE 03481782566 No Longer Active Nadir Hector MD Active BACTRIM DS 800-160 MG TABS 1 po BID x 7 days SULFAMETHOXAZOLE-TRIMETHOPRIM 10490409990 No Longer Active Jamal Burrell MD Active FOSAMAX 70 MG TABS 1 po qweek. Take 30min prior to first food/drink. Avoid lying down x 1 hour. ALENDRONATE SODIUM 03556667476 Active Nadir Hector MD Active AMOXICILLIN 500 MG CAPS 2 po BID x 10 days AMOXICILLIN 46310952769 No Longer Active Nadir Hector MD Active JANUVIA 100 MG TABS 1 tablet by mouth daily SITAGLIPTIN PHOSPHATE 78754271614 No Longer Active Nadir Hector MD Active JANUVIA 100 MG TABS Take 1 tab daily SITAGLIPTIN PHOSPHATE 63388113561 No Longer Active Sharon Nuñez Active MACROBID 100 MG CAP 1 cap by mouth twice daily NITROFURANTOIN MONOHYD MACRO 42615354514 No Longer Active Crystal Fernández APRN Active MACRODANTIN 100 MG CAPS 1 capsule by mouth twice daily for seven days NITROFURANTOIN MACROCRYSTAL 61103167274 No Longer Active Ro Yang RN Active BACTRIM DS 800-160 MG TABS one tablet twice a day for seven days SULFAMETHOXAZOLE-TRIMETHOPRIM 45770917107 No Longer Active HEMANTH Griffin Active BACTRIM DS 800-160 MG TABS TAKE ONE TABLET BY MOUTH TWICE DAILY FOR 7 DAYS SULFAMETHOXAZOLE-TRIMETHOPRIM 22540942735 No Longer Active Viviana Lal RN Active CIPRO 250 MG TABS TAKE ONE TABLET BY MOUTH TWICE DAILY FOR 5 DAYS CIPROFLOXACIN HCL 44809977665 No Longer Active Viviana Lal RN Active FLEXERIL 10 MG TABS 1/2 TO 1 TABLET Q12H NEEDED CYCLOBENZAPRINE HCL 45078740184 No Longer Active Viviana Lal RN Active AMLODIPINE BESYLATE 5 MG TABS 1 1/2 daily AMLODIPINE BESYLATE 05459379938 Active Nadir Hector MD Active ONGLYZA 5 MG TABS 1 QAM SAXAGLIPTIN HCL 28893123293 No Longer Active Nadir Hector MD Active AMLODIPINE BESYLATE 5 MG TABS 1 1/2 TABLET DAILY AMLODIPINE BESYLATE 39645687837 No Longer Active Nadir Hector MD Active LORTAB 5-500 MG TABS 1 BY MOUTH Q6H NEEDED HYDROCODONE- ACETAMINOPHEN 93898291255 No Longer Active Nadir Hector MD Active ACTOS 45 MG TABS 1 QD PIOGLITAZONE HCL 40254515172 No Longer Active Nadir Hector MD Active BACTRIM DS 800-160 MG TAB 1 tab by mouth twice daily TRIMETHOPRIM-SULFAMETHOXAZOLE 36972496114 No Longer Active Nadir Hector MD Active CALCIUM + D 600-200 MG-UNIT TABS 1 TABLET TWO TIMES A DAY CALCIUM CARBONATE-VITAMIN D 99618987649 Active Ro Yang RN Active METOPROLOL SUCCINATE 25 MG [id number] 1 QAM METOPROLOL SUCCINATE 23548681979 Active Nadir Hector MD Active AMARYL 4 MG TABS 1 QD GLIMEPIRIDE 83036747393 Active Nadir Hector MD Active LOVASTATIN 40 MG TABS 1 QD LOVASTATIN 81214614799 Active Nadir Hector MD Active GLUCOPHAGE 1000 MG TABS 1 TABLET TWO TIMES A DAY METFORMIN HCL 25477116915 Active Nadir Hector MD Active MAXZIDE-25 37.5-25 MG TABS 1 QD TRIAMTERENE-HCTZ 58977615312 Active Nadir Hector MD Active ACCUPRIL 40 MG TABS 1 QD QUINAPRIL HCL 58032094180 Active Nadir Hector MD Active BACTRIM DS 800-160 MG TAB 1 tab by mouth twice daily BACTRIM DS 800-160 MG TAB TRIMETHOPRIM-SULFAMETHOXAZOLE Inactive ACTOS 45 MG TABS 1 QD ACTOS 45 MG TABS 324407 PIOGLITAZONE HCL Inactive LORTAB 5-500 MG TABS 1 BY MOUTH Q6H NEEDED LORTAB 5-500 MG TABS HYDROCODONE-ACETAMINOPHEN Inactive AMLODIPINE BESYLATE 5 MG TABS 1 1/2 TABLET DAILY AMLODIPINE BESYLATE 5 MG TABS 948542 AMLODIPINE BESYLATE Inactive ONGLYZA 5 MG TABS 1 QAM ONGLYZA 5 MG TABS SAXAGLIPTIN HCL Inactive FLEXERIL 10 MG TABS 1/2 TO 1 TABLET Q12H NEEDED FLEXERIL 10 MG TABS CYCLOBENZAPRINE HCL Inactive CIPRO 250 MG TABS TAKE ONE TABLET BY MOUTH TWICE DAILY FOR 5 DAYS CIPRO 250 MG TABS 620982 CIPROFLOXACIN HCL Inactive BACTRIM DS 800-160 MG TABS TAKE ONE TABLET BY MOUTH TWICE DAILY FOR 7 DAYS BACTRIM DS 800-160 MG TABS SULFAMETHOXAZOLE-TRIMETHOPRIM Inactive BACTRIM DS 800-160 MG TABS one tablet twice a day for seven days BACTRIM DS 800-160 MG TABS SULFAMETHOXAZOLE-TRIMETHOPRIM Inactive MACROBID 100 MG CAP 1 cap by mouth twice daily MACROBID 100 MG CAP 364212 NITROFURANTOIN MONOHYD MACRO Inactive JANUVIA 100 MG TABS Take 1 tab daily JANUVIA 100 MG TABS SITAGLIPTIN PHOSPHATE Inactive GLUCOTROL XL 5 MG [id number] one tablet daily GLUCOTROL XL 5 MG [id number] GLIPIZIDE Inactive MACRODANTIN 100 MG CAPS 1 capsule by mouth twice daily for seven days MACRODANTIN 100 MG CAPS 431490 NITROFURANTOIN MACROCRYSTAL Inactive AMOXICILLIN 500 MG CAPS 2 po BID x 10 days AMOXICILLIN 500 MG CAPS 404838 AMOXICILLIN Inactive BACTRIM DS 800-160 MG TABS 1 po BID x 7 days BACTRIM DS 800-160 MG TABS SULFAMETHOXAZOLE-TRIMETHOPRIM Inactive CIPRO 250 MG TAB 1 tablet by mouth twice daily CIPRO 250 MG TAB 500524 CIPROFLOXACIN HCL Inactive MACROBID 100 MG CAP 1 cap by mouth twice daily MACROBID 100 MG CAP 708164 NITROFURANTOIN MONOHYD MACRO Inactive BACTRIM DS TABS Take 1 po BID BACTRIM DS TABS SULFAMETHOXAZOLE-TRIMETHOPRIM TABS Inactive AMOXICILLIN 500 MG ORAL CAPS tid AMOXICILLIN 500 MG ORAL CAPS 022259 AMOXICILLIN Inactive Advance Directives Directive Description Start Date PERMISSION TO SHARE Immunizations Vaccine Administration Date Value Standard Description pneumococcal immunization administered Pneumovax 23 [CVX33] pneumococcal polysaccharide vaccine, 23 valent Seasonal influenza vaccine, injectable, containing preservative, for > 3 years old (Afluria, FluLaval, Fluzone, Fluvirin, Fluarix, Agriflu(>=18 yo)) Fluzone (>3 yrs.) [[id number]] Influenza, seasonal, injectable Vital Signs Date Name [...] Panel - Chemistry sodium, serum 138 mmol/L 680-085 1700/07/02 potassium, serum 4.5 mmol/L 3.5-5.2 chloride, serum [...] 6.5 Encounters Code Encounter Date Provider Facility CPT-70117 Level 2 Est. Patient 18:56:33 CDT Catalino Irene MD [facility] CPT-77325 Level 4 New Patient 14:59:23 CDT Catalino Irene MD [facility] CPT-72493 Level 3 Est. Patient 16:43:04 [employer] Nadir Hector MD [facility] CPT-34978 Level 4 Est. Patient 14:21:01 [employer] Nadir Hector MD [facility] CPT-76033 Level 3 Est. Patient 16:41:34 CDT Nadir Hector MD [facility] CPT-85167 Level 4 Est. Patient 13:54:35 [employer] Nadir Hector MD [facility] CPT-97422 Level 3 Est. Patient 15:51:21 CDT Nadir Hector MD [facility] CPT-61858 Level 4 New Patient 15:58:26 CDT Catalino Irene MD [facility] CPT-60133 Level 4 Est. Patient 15:42:38 [employer] Nadir Hector MD [facility] Procedures Code Procedure Name Date Entry Date Standard Description CPT-72843 Urine Dip (Floor Use Only) 18:56:34 CDT CPT-09111 Urine Dip (Floor Use Only) 14:21:22 CDT CPT-J0561 Bicillin LA 1,200,000 u (PCN G Benzathine) 13:16:19 CDT CPT-29645 Abx/Therapy Injection 13:16:19 CDT CPT-53340 Urine Dip (Floor Use Only) 14:59:25 CDT CPT-71293 Bladder Scan 14:59:24 CDT CPT-06632 Cystoscopy 14:59:24 CDT CPT-54120 Abd single AP View 12:13:13 CDT CPT-000 Give Pneumovax 14:21:01 [employer] CPT-000 Give Appropriate Flu Vaccine 14:21:01 [employer] CPT-58085 Bone Density 08:41:23 [employer] CPT-000 Give Appropriate Flu Vaccine 13:54:35 [employer] CPT-000 Give Pneumovax 13:54:35 [employer] CPT-70936 Administration 2+ single or combination vaccines inc oral 14:01:24 [employer] CPT-17207 Administration single or combination vaccine inc oral 14 :01:24 [employer] CPT-95890 Influenza High Dose age 65+ 14:01:24 [employer] CPT-35501 Pneumovax 14:01:24 [employer] CPT-19269 Venipuncture Draw Fee 10:36:48 CDT CPT-000 Give Appropriate Flu Vaccine 15:20:11 [employer] CPT-41202 Administration single or combination vaccine inc oral 15 :50:33 [employer] CPT-57779 Influenza High Dose age 65+ 15:50:33 [employer] CPT-99583 LS spine AP and Lat 15:30:05 [employer] CPT-10917 Hip comp min 2V 15:30:05 [employer] CPT-29568 Postop F/U Visit 17:28:18 CDT CPT-OV Office Visit 15:04:38 CDT CPT-33383 Bladder Scan 15:58:26 CDT CPT-98179 Cystoscopy 15:58:26 CDT CPT-OV Office Visit 16:15:09 CDT CPT-000 Give Appropriate Flu Vaccine 16:33:10 [employer] CPT-37568 Administration single or combination vaccine inc oral 19 :21:12 [employer] CPT-81663 Influenza split virus > age 3 19:21:12 [employer]
--- OUTSIDE RECORDS SUMMARY | 2017-07-23 09:53 | XMS REPORT | Clinical Summary ---
Author Author Admin, IMTIAZ Organization [facility] Address Unknown Phone Unavailable Allergies, [...] wall prolapse U T I-RECURRENT 599.0 Active Catalion Irene MD Urinary tract infection, site not [...] Acute sinusitis, unspecified Menopause, surgical 627.4 Active [facility] Symptomatic states associated with artificial menopause [...] TAB 1 tablet by mouth daily FLUCONAZOLE 67654953338 No Longer Active Nadir Hector MD Active BACTRIM DS 800-160 MG ORAL TABS 1 BID for 5 days SULFAMETHOXAZOLE-TRIMETHOPRIM 25515687130 No Longer Active Nadir Hector MD Active CIPRO 250 MG TAB 1 tablet by mouth twice daily CIPROFLOXACIN HCL 13770612864 No Longer Active Ro Meyer Active AMOXICILLIN 500 MG ORAL CAPS tid AMOXICILLIN 70663267861 No Longer Active Catalino Irene MD Active BACTRIM DS TABS Take 1 po BID SULFAMETHOXAZOLE- TRIMETHOPRIM TABS 08573701556 No Longer Active Pam Gomez LPN Active MACROBID 100 MG CAP 1 cap by mouth twice daily NITROFURANTOIN MONOHYD MACRO 17967970648 No Longer Active Pam Gomez LPN Active CIPRO 250 MG TAB 1 tablet by mouth twice daily CIPROFLOXACIN HCL 53300283747 No Longer Active Pam Gomez LPN Active JANUVIA 100 MG ORAL TABS 1 daily SITAGLIPTIN PHOSPHATE 26477983629 Active Nadir Hector MD Active GLUCOTROL XL 5 MG [id number] one tablet daily GLIPIZIDE 22665336368 No Longer Active Nadir Hector MD Active BACTRIM DS 800-160 MG TABS 1 po BID x 7 days SULFAMETHOXAZOLE-TRIMETHOPRIM 18385985127 No Longer Active Jamal Burrell MD Active FOSAMAX 70 MG TABS 1 po qweek. Take 30min prior to first food/drink. Avoid lying down x 1 hour. ALENDRONATE SODIUM 89887914709 Active Nadir Hector MD Active AMOXICILLIN 500 MG CAPS 2 po BID x 10 days AMOXICILLIN 42245459982 No Longer Active Nadir Hector MD Active JANUVIA 100 MG TABS 1 tablet by mouth daily SITAGLIPTIN PHOSPHATE 79147930148 No Longer Active Nadir Hector MD Active JANUVIA 100 MG TABS Take 1 tab daily SITAGLIPTIN PHOSPHATE 91863670067 No Longer Active Sharon Nuñez Active MACROBID 100 MG CAP 1 cap by mouth twice daily NITROFURANTOIN MONOHYD MACRO 22903854025 No Longer Active Crystal Fernández APRN Active MACRODANTIN 100 MG CAPS 1 capsule by mouth twice daily for seven days NITROFURANTOIN MACROCRYSTAL 46385563956 No Longer Active Ro Trey RN Active BACTRIM DS 800-160 MG TABS one tablet twice a day for seven days SULFAMETHOXAZOLE-TRIMETHOPRIM 37844739755 No Longer Active HEMANTH Griffin Active BACTRIM DS 800-160 MG TABS TAKE ONE TABLET BY MOUTH TWICE DAILY FOR 7 DAYS SULFAMETHOXAZOLE-TRIMETHOPRIM 14400972765 No Longer Active Viviana Lal RN Active CIPRO 250 MG TABS TAKE ONE TABLET BY MOUTH TWICE DAILY FOR 5 DAYS CIPROFLOXACIN HCL 74866048949 No Longer Active Viviana Lal RN Active FLEXERIL 10 MG TABS 1/2 TO 1 TABLET Q12H NEEDED CYCLOBENZAPRINE HCL 32328453419 No Longer Active Viviana Lal RN Active AMLODIPINE BESYLATE 5 MG TABS 1 1/2 daily AMLODIPINE BESYLATE 00464272313 Active Nadir Hector MD Active ONGLYZA 5 MG TABS 1 QAM SAXAGLIPTIN HCL 49941462109 No Longer Active Nadir Hector MD Active AMLODIPINE BESYLATE 5 MG TABS 1 1/2 TABLET DAILY AMLODIPINE BESYLATE 13360927858 No Longer Active Nadir Hector MD Active LORTAB 5-500 MG TABS 1 BY MOUTH Q6H NEEDED HYDROCODONE- ACETAMINOPHEN 50029669116 No Longer Active Nadir Hector MD Active ACTOS 45 MG TABS 1 QD PIOGLITAZONE HCL 25807065217 No Longer Active Nadir Hector MD Active BACTRIM DS 800-160 MG TAB 1 tab by mouth twice daily TRIMETHOPRIM-SULFAMETHOXAZOLE 08401997948 No Longer Active Nadir Hector MD Active CALCIUM + D 600-200 MG-UNIT TABS 1 TABLET TWO TIMES A DAY CALCIUM CARBONATE-VITAMIN D 88398142823 Active Ro Yang RN Active METOPROLOL SUCCINATE 25 MG [id number] 1 QAM METOPROLOL SUCCINATE 10630484706 Active Nadir Hetcor MD Active AMARYL 4 MG TABS 1 QD GLIMEPIRIDE 06309258348 Active Nadir Hector MD Active LOVASTATIN 40 MG TABS 1 QD LOVASTATIN 78389969605 Active Nadir Hector MD Active GLUCOPHAGE 1000 MG TABS 1 TABLET TWO TIMES A DAY METFORMIN HCL 06651677844 Active Nadir Hector MD Active MAXZIDE-25 37.5-25 MG TABS 1 QD TRIAMTERENE-HCTZ 08691241590 Active Nadir Hector MD Active ACCUPRIL 40 MG TABS 1 QD QUINAPRIL HCL 39109231871 Active Nadir Hector MD Active BACTRIM DS 800-160 MG TAB 1 tab by mouth twice daily BACTRIM DS 800-160 MG TAB TRIMETHOPRIM-SULFAMETHOXAZOLE Inactive ACTOS 45 MG TABS 1 QD ACTOS 45 MG TABS 446024 PIOGLITAZONE HCL Inactive LORTAB 5-500 MG TABS 1 BY MOUTH Q6H NEEDED LORTAB 5-500 MG TABS HYDROCODONE-ACETAMINOPHEN Inactive AMLODIPINE BESYLATE 5 MG TABS 1 1/2 TABLET DAILY AMLODIPINE BESYLATE 5 MG TABS 187070 AMLODIPINE BESYLATE Inactive ONGLYZA 5 MG TABS 1 QAM ONGLYZA 5 MG TABS SAXAGLIPTIN HCL Inactive FLEXERIL 10 MG TABS 1/2 TO 1 TABLET Q12H NEEDED FLEXERIL 10 MG TABS CYCLOBENZAPRINE HCL Inactive CIPRO 250 MG TABS TAKE ONE TABLET BY MOUTH TWICE DAILY FOR 5 DAYS CIPRO 250 MG TABS 403621 CIPROFLOXACIN HCL Inactive BACTRIM DS 800-160 MG TABS TAKE ONE TABLET BY MOUTH TWICE DAILY FOR 7 DAYS BACTRIM DS 800-160 MG TABS SULFAMETHOXAZOLE-TRIMETHOPRIM Inactive BACTRIM DS 800-160 MG TABS one tablet twice a day for seven days BACTRIM DS 800-160 MG TABS SULFAMETHOXAZOLE-TRIMETHOPRIM Inactive MACROBID 100 MG CAP 1 cap by mouth twice daily MACROBID 100 MG CAP 8341200 NITROFURANTOIN MONOHYD MACRO Inactive JANUVIA 100 MG TABS Take 1 tab daily JANUVIA 100 MG TABS SITAGLIPTIN PHOSPHATE Inactive GLUCOTROL XL 5 MG [id number] one tablet daily GLUCOTROL XL 5 MG [id number] GLIPIZIDE Inactive BACTRIM DS 800-160 MG ORAL TABS 1 BID for 5 days BACTRIM DS 800-160 MG ORAL TABS SULFAMETHOXAZOLE-TRIMETHOPRIM Inactive DIFLUCAN 150 MG TAB 1 tablet by mouth daily DIFLUCAN 150 MG TAB 769300 FLUCONAZOLE Inactive MACRODANTIN 100 MG CAPS 1 capsule by mouth twice daily for seven days MACRODANTIN 100 MG CAPS 9800023 NITROFURANTOIN MACROCRYSTAL Inactive AMOXICILLIN 500 MG CAPS 2 po BID x 10 days AMOXICILLIN 500 MG CAPS 636684 AMOXICILLIN Inactive BACTRIM DS 800-160 MG TABS 1 po BID x 7 days BACTRIM DS 800-160 MG TABS SULFAMETHOXAZOLE-TRIMETHOPRIM Inactive CIPRO 250 MG TAB 1 tablet by mouth twice daily CIPRO 250 MG TAB 780262 CIPROFLOXACIN HCL Inactive MACROBID 100 MG CAP 1 cap by mouth twice daily MACROBID 100 MG CAP 4770655 NITROFURANTOIN MONOHYD MACRO Inactive BACTRIM DS TABS Take 1 po BID BACTRIM DS TABS SULFAMETHOXAZOLE-TRIMETHOPRIM TABS Inactive AMOXICILLIN 500 MG ORAL CAPS tid AMOXICILLIN 500 MG ORAL CAPS 277644 AMOXICILLIN Inactive CIPRO 250 MG TAB 1 tablet by mouth twice daily CIPRO 250 MG TAB 622381 CIPROFLOXACIN HCL Inactive Advance Directives Directive Description Start Date PERMISSION TO SHARE Immunizations Vaccine Administration Date Value Standard Description pneumococcal immunization administered Pneumovax 23 [CVX33] pneumococcal polysaccharide vaccine, 23 valent Seasonal influenza vaccine, injectable, containing preservative, for > 3 years old (Afluria, FluLaval, Fluzone, Fluvirin, Fluarix, Agriflu(>=18 yo)) Fluzone (>3 yrs.) [[id number]] Influenza, seasonal, injectable Vital Signs Date Name [...] Panel - Chemistry sodium, serum 138 mmol/L 813-175 7811/07/02 potassium, serum 4.5 mmol/L 3.5-5.2 chloride, serum [...] HGBA1C - Chemistry cholesterol, serum 147 mg/dL 333-121 2391/08/18 triglyceride, serum, fasting 242 mg/dL 30-200 HDL cholesterol, serum 36 mg/dL 32-96 LDL cholesterol, serum 63 mg/dL 0-130 sodium, serum 137 mmol/L 815-387 0209/08/18 potassium, serum 4.7 mmol/L 3.5-5.2 chloride, serum [...] 0.2 Encounters Code Encounter Date Provider Facility CPT-64117 Level 4 Est. Patient 09:54:20 CDT Nadir Hector MD [facility] CPT-41018 Level 2 Est. Patient 18:56:33 CDT Catalino Irene MD [facility] CPT-40124 Level 4 New Patient 14:59:23 CDT Catalino Irene MD [facility] CPT-48017 Level 3 Est. Patient 16:43:04 [employer] Nadir Hector MD [facility] CPT-19359 Level 4 Est. Patient 14:21:01 [employer] Nadir Hector MD [facility] CPT-73312 Level 3 Est. Patient 16:41:34 CDT Nadir Hector MD [facility] CPT-14461 Level 4 Est. Patient 13:54:35 [employer] Nadir Hector MD [facility] CPT-66842 Level 3 Est. Patient 15:51:21 CDT Nadir Hector MD [facility] CPT-64119 Level 4 New Patient 15:58:26 CDT Catalino Irene MD [facility] CPT-27002 Level 4 Est. Patient 15:42:38 [employer] Nadir Hector MD [facility] Procedures Code Procedure Name Date Entry Date Standard Description CPT-75778 Urine Dip (Floor Use Only) 18:56:34 CDT CPT-45915 Urine Dip (Floor Use Only) 14:21:22 CDT CPT-J0561 Bicillin LA 1,200,000 u (PCN G Benzathine) 13:16:19 CDT CPT-55269 Abx/Therapy Injection 13:16:19 CDT CPT-64689 Urine Dip (Floor Use Only) 14:59:25 CDT CPT-57446 Bladder Scan 14:59:24 CDT CPT-32162 Cystoscopy 14:59:24 CDT CPT-37130 Abd single AP View 12:13:13 CDT CPT-000 Give Pneumovax 14:21:01 [employer] CPT-000 Give Appropriate Flu Vaccine 14:21:01 [employer] CPT-30132 Bone Density 08:41:23 [employer] CPT-000 Give Appropriate Flu Vaccine 13:54:35 [employer] CPT-000 Give Pneumovax 13:54:35 [employer] CPT-86928 Administration 2+ single or combination vaccines inc oral 14:01:24 [employer] CPT-25104 Administration single or combination vaccine inc oral 14 :01:24 [employer] CPT-46651 Influenza High Dose age 65+ 14:01:24 [employer] CPT-01366 Pneumovax 14:01:24 [employer] CPT-17072 Venipuncture Draw Fee 10:36:48 CDT CPT-000 Give Appropriate Flu Vaccine 15:20:11 [employer] CPT-03971 Administration single or combination vaccine inc oral 15 :50:33 [employer] CPT-75654 Influenza High Dose age 65+ 15:50:33 [employer] CPT-06780 LS spine AP and Lat 15:30:05 [employer] CPT-98795 Hip comp min 2V 15:30:05 [employer] CPT-53195 Postop F/U Visit 17:28:18 CDT CPT-OV Office Visit 15:04:38 CDT CPT-32799 Bladder Scan 15:58:26 CDT CPT-21768 Cystoscopy 15:58:26 CDT CPT-OV Office Visit 16:15:09 CDT CPT-000 Give Appropriate Flu Vaccine 16:33:10 [employer] CPT-69538 Administration single or combination vaccine inc oral 19 :21:12 [employer] CPT-51703 Influenza split virus > age 3 19:21:12 [employer]
--- OUTSIDE RECORDS SUMMARY | 2017-07-23 09:54 | XMS REPORT | Clinical Summary ---
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 Catalino Ireen MD Abdominal or pelvic swelling, mass, or lump, unspecified site Anemia 285.9 Active Catalino Irene MD Anemia, unspecified Medication List Medication Instructions Start Date Stop Date Generic Name NDC Status Provider Patient Instruction GLIMEPIRIDE 1 MG ORAL TABS 1 tab by mouth daily GLIMEPIRIDE 92322969402 Active Catalino Irene MD Active VITAMIN E 400 IU CAP 1 tab by mouth daily VITAMIN E 28578744077 Active Catalino Irene MD Active QUINAPRIL HCL 20 MG ORAL TABS 1 tab by mouth daily QUINAPRIL HCL 70553570097 Active Catalino Irene MD Active PANTOPRAZOLE SODIUM 40 MG TBEC 1 pill by mouth daily PANTOPRAZOLE SODIUM 73261022911 Active Catalino Irene MD Active CARAFATE 1 GM ORAL TABS 1 tab by mouth four times daily SUCRALFATE 86057459050 Active Catalino Irene MD Active METFORMIN HCL 500 MG TABS 1 tablet by mouth twice daily METFORMIN HCL 50874821093 Active Catalino Irene MD Active ACCUPRIL 40 MG TABS 1 QD QUINAPRIL HCL 54628200771 No Longer Active Catalino Irene MD Active JANUVIA 100 MG ORAL TABS 1 daily SITAGLIPTIN PHOSPHATE 81598177562 No Longer Active Catalino Irene MD Active DIFLUCAN 150 MG TAB 1 tablet by mouth daily FLUCONAZOLE 92408418203 No Longer Active Nadir Hector MD Active BACTRIM DS 800-160 MG ORAL TABS 1 BID for 5 days SULFAMETHOXAZOLE-TRIMETHOPRIM 77029761723 No Longer Active Nadir Hector MD Active CIPRO 250 MG TAB 1 tablet by mouth twice daily CIPROFLOXACIN HCL 13383426109 No Longer Active Ro Meyer Active AMOXICILLIN 500 MG ORAL CAPS tid AMOXICILLIN 93714951475 No Longer Active Catalino Irene MD Active BACTRIM DS TABS Take 1 po BID SULFAMETHOXAZOLE- TRIMETHOPRIM TABS 68375666958 No Longer Active Pam Gomez LPN Active MACROBID 100 MG CAP 1 cap by mouth twice daily NITROFURANTOIN MONOHYD MACRO 46440786559 No Longer Active Pam Gomez LPN Active CIPRO 250 MG TAB 1 tablet by mouth twice daily CIPROFLOXACIN HCL 80729849380 No Longer Active Pam Gomez LPN Active GLUCOTROL XL 5 MG [id number] one tablet daily GLIPIZIDE 72886388352 No Longer Active Nadir Hector MD Active BACTRIM DS 800-160 MG TABS 1 po BID x 7 days SULFAMETHOXAZOLE-TRIMETHOPRIM 45277046563 No Longer Active Jamal Burrell MD Active FOSAMAX 70 MG TABS 1 po qweek. Take 30min prior to first food/drink. Avoid lying down x 1 hour. ALENDRONATE SODIUM 42071611909 Active Nadir Hector MD Active AMOXICILLIN 500 MG CAPS 2 po BID x 10 days AMOXICILLIN 41700602560 No Longer Active Nadir Hector MD Active JANUVIA 100 MG TABS 1 tablet by mouth daily SITAGLIPTIN PHOSPHATE 67748587862 No Longer Active Nadir Hector MD Active JANUVIA 100 MG TABS Take 1 tab daily SITAGLIPTIN PHOSPHATE 32900066182 No Longer Active Sharon Nuñez Active MACROBID 100 MG CAP 1 cap by mouth twice daily NITROFURANTOIN MONOHYD MACRO 85869864114 No Longer Active Crystal Fernández APRN Active MACRODANTIN 100 MG CAPS 1 capsule by mouth twice daily for seven days NITROFURANTOIN MACROCRYSTAL 20064573402 No Longer Active Ro Yang RN Active BACTRIM DS 800-160 MG TABS one tablet twice a day for seven days SULFAMETHOXAZOLE-TRIMETHOPRIM 17239700150 No Longer Active HEMANTH Griffin Active BACTRIM DS 800-160 MG TABS TAKE ONE TABLET BY MOUTH TWICE DAILY FOR 7 DAYS SULFAMETHOXAZOLE-TRIMETHOPRIM 90685895516 No Longer Active Viviana Lal RN Active CIPRO 250 MG TABS TAKE ONE TABLET BY MOUTH TWICE DAILY FOR 5 DAYS CIPROFLOXACIN HCL 33575378019 No Longer Active Viviana Lal RN Active FLEXERIL 10 MG TABS 1/2 TO 1 TABLET Q12H NEEDED CYCLOBENZAPRINE HCL 10054304398 No Longer Active Viviana Lal RN Active AMLODIPINE BESYLATE 5 MG TABS 1 1/2 daily AMLODIPINE BESYLATE 62434450653 Active Nadir Hector MD Active ONGLYZA 5 MG TABS 1 QAM SAXAGLIPTIN HCL 82484240984 No Longer Active Nadir Hector MD Active AMLODIPINE BESYLATE 5 MG TABS 1 1/2 TABLET DAILY AMLODIPINE BESYLATE 68057760005 No Longer Active Nadir Hector MD Active LORTAB 5-500 MG TABS 1 BY MOUTH Q6H NEEDED HYDROCODONE- ACETAMINOPHEN 26224355224 No Longer Active Nadir Hector MD Active ACTOS 45 MG TABS 1 QD PIOGLITAZONE HCL 62845092183 No Longer Active Nadir Hector MD Active BACTRIM DS 800-160 MG TAB 1 tab by mouth twice daily TRIMETHOPRIM-SULFAMETHOXAZOLE 07133264824 No Longer Active Nadir Hector MD Active CALCIUM + D 600-200 MG-UNIT TABS 1 TABLET TWO TIMES A DAY CALCIUM CARBONATE-VITAMIN D 40278450833 Active Ro Yang RN Active METOPROLOL SUCCINATE 25 MG [id number] 1 QAM METOPROLOL SUCCINATE 43736934279 Active Nadir Hector MD Active AMARYL 4 MG TABS 1 QD GLIMEPIRIDE 25721841830 Active Nadir Hector MD Active LOVASTATIN 40 MG TABS 1 QD LOVASTATIN 00254592369 Active Nadir Hector MD Active MAXZIDE-25 37.5-25 MG TABS 1 QD TRIAMTERENE-HCTZ 51214805038 Active Nadir Hector MD Active BACTRIM DS 800-160 MG TAB 1 tab by mouth twice daily BACTRIM DS 800-160 MG TAB 492124 TRIMETHOPRIM-SULFAMETHOXAZOLE Inactive ACTOS 45 MG TABS 1 QD ACTOS 45 MG TABS 602888 PIOGLITAZONE HCL Inactive LORTAB 5-500 MG TABS 1 BY MOUTH Q6H NEEDED LORTAB 5-500 MG TABS HYDROCODONE-ACETAMINOPHEN Inactive AMLODIPINE BESYLATE 5 MG TABS 1 1/2 TABLET DAILY AMLODIPINE BESYLATE 5 MG TABS 957640 AMLODIPINE BESYLATE Inactive ONGLYZA 5 MG TABS [...] mouth twice daily MACROBID 100 MG CAP 6117857 NITROFURANTOIN MONOHYD MACRO Inactive JANUVIA 100 MG TABS Take 1 tab daily JANUVIA 100 MG TABS SITAGLIPTIN PHOSPHATE Inactive GLUCOTROL XL 5 MG [id number] one tablet daily GLUCOTROL XL 5 MG [id number] GLIPIZIDE Inactive BACTRIM DS 800-160 MG ORAL TABS 1 BID for 5 days BACTRIM DS 800-160 MG ORAL TABS 19820615 SULFAMETHOXAZOLE-TRIMETHOPRIM Inactive DIFLUCAN 150 MG TAB 1 tablet by mouth daily DIFLUCAN 150 MG TAB 493518 FLUCONAZOLE Inactive JANUVIA 100 MG ORAL TABS 1 daily JANUVIA 100 MG ORAL TABS SITAGLIPTIN PHOSPHATE Inactive ACCUPRIL 40 MG TABS 1 QD ACCUPRIL 40 MG TABS 503918 QUINAPRIL HCL Inactive MACRODANTIN 100 MG CAPS 1 capsule by mouth twice daily for seven days MACRODANTIN 100 MG CAPS 0433220 NITROFURANTOIN MACROCRYSTAL Inactive AMOXICILLIN 500 MG CAPS 2 po BID x 10 days AMOXICILLIN 500 MG CAPS 056823 AMOXICILLIN Inactive BACTRIM DS 800-160 MG TABS 1 po BID x 7 days BACTRIM DS 800-160 MG TABS 931584 SULFAMETHOXAZOLE-TRIMETHOPRIM Inactive CIPRO 250 MG TAB 1 tablet by mouth twice daily CIPRO 250 MG TAB 19740413 CIPROFLOXACIN HCL Inactive MACROBID 100 MG CAP 1 cap by mouth twice daily MACROBID 100 MG CAP 9948449 NITROFURANTOIN MONOHYD MACRO Inactive BACTRIM DS TABS Take 1 po BID BACTRIM DS TABS SULFAMETHOXAZOLE-TRIMETHOPRIM TABS Inactive AMOXICILLIN 500 MG ORAL CAPS tid AMOXICILLIN 500 MG ORAL CAPS 355758 AMOXICILLIN Inactive CIPRO 250 MG TAB 1 [...] Fluvirin, Fluarix, Agriflu(>=18 yo)) Fluzone (>3 yrs.) [[id number]] Influenza, seasonal, injectable Vital Signs Date Name Value Unit Range Description blood pressure, diastolic - 8462-4 59 mm[Hg] BP tyler blood pressure, systolic - 8480-6 118 mm[Hg] BP sys pulse rate E&M - 8867-4 89 /min Heart rate temperature E&M 98.1 [degF] Body temperature weight E&M - 3141-9 163 [lb_av] Weight Measured blood pressure, diastolic - 8462-4 53 mm[Hg] [...] % 11.0-15.0 platelet count 931 THOUSAND/UL 10*3/mm3 844-686 3971/05/09 mean platelet volume 5.9 fL 7.5-12.5 Encounters Code Encounter Date Provider Facility CPT-89136 Level 3 Est. Patient 13:06:50 CDT Catalino Irene MD [facility] CPT-81609 Level 4 Est. Patient 19:00:26 CDT Catalino Irene MD [facility] CPT-60796 Level 2 Est. Patient 07:03:19 CDT Catalino Irene MD [facility] CPT-36934 Level 4 Est. Patient 09:54:20 CDT Nadir Hector MD [facility] CPT-65741 Level 2 Est. Patient 18:56:33 CDT Catalino Irene MD [facility] CPT-16890 Level 4 New Patient 14:59:23 CDT Catalino Irene MD [facility] CPT-35462 Level 3 Est. Patient 16:43:04 STUD DRIVER Nadir Hector MD [facility] CPT-85597 Level 4 Est. Patient 14:21:01 STUD DRIVER Nadir Hector MD [facility] CPT-25307 Level 3 Est. Patient 16:41:34 CDT Nadir Hector MD [facility] CPT-68446 Level 4 Est. Patient 13:54:35 STUD DRIVER Nadir Hector MD [facility] CPT-52440 Level 3 Est. Patient 15:51:21 CDT Nadir Hector MD [facility] CPT-88558 Level 4 New Patient 15:58:26 CDT Catalino Irene MD [facility] CPT-27125 Level 4 Est. Patient 15:42:38 STUD DRIVER Nadir Hector MD [facility] Procedures Code Procedure Name Date Entry Date Standard Description CPT-93943 Urine Dip (Floor Use Only) 18:56:34 CDT CPT-16166 Urine Dip (Floor Use Only) 14:21:22 CDT CPT-J0561 Bicillin LA 1,200,000 u (PCN G Benzathine) 13:16:19 CDT CPT-25459 Abx/Therapy Injection 13:16:19 CDT CPT-23210 Urine Dip (Floor Use Only) 14:59:25 CDT CPT-81694 Bladder Scan 14:59:24 CDT CPT-25285 Cystoscopy 14:59:24 CDT CPT-37033 Abd single AP View 12:13:13 CDT CPT-000 Give Pneumovax 14:21:01 STUD DRIVER CPT-000 Give Appropriate Flu Vaccine 14:21:01 STUD DRIVER CPT-30474 Bone Density 08:41:23 STUD DRIVER CPT-000 Give Appropriate Flu Vaccine 13:54:35 STUD DRIVER CPT-000 Give Pneumovax 13:54:35 STUD DRIVER CPT-96163 Administration 2+ single or combination vaccines inc oral 14:01:24 STUD DRIVER CPT-29966 Administration single or combination vaccine inc oral 14 :01:24 STUD DRIVER CPT-72903 Influenza High Dose age 65+ 14:01:24 STUD DRIVER CPT-26989 Pneumovax 14:01:24 STUD DRIVER CPT-11087 Venipuncture Draw Fee 10:36:48 CDT CPT-000 Give Appropriate Flu Vaccine 15:20:11 STUD DRIVER CPT-88792 Administration single or combination vaccine inc oral 15 :50:33 STUD DRIVER CPT-76097 Influenza High Dose age 65+ 15:50:33 STUD DRIVER CPT-79286 LS spine AP and Lat 15:30:05 STUD DRIVER CPT-44575 Hip comp min 2V 15:30:05 STUD DRIVER CPT-04542 Postop F/U Visit 17:28:18 CDT CPT-OV Office Visit 15:04:38 CDT CPT-46331 Bladder Scan 15:58:26 CDT CPT-67483 Cystoscopy 15:58:26 CDT CPT-OV Office Visit 16:15:09 CDT CPT-000 Give Appropriate Flu Vaccine 16:33:10 STUD DRIVER CPT-95090 Administration single or combination vaccine inc oral 19 :21:12 STUD DRIVER CPT-69532 Influenza split virus > age 3 19:21:12 STUD DRIVER
--- OUTSIDE RECORDS SUMMARY | 2017-07-23 09:54 | XMS REPORT | Clinical Summary ---
Author Author Admin, IMTIA[facility] Organization [facility] Address Unknown Phone Unavailable Allergies, Adverse Reactions, [...] MD Routine general medical examination at a main campus medical [facility] care facility PERIPHERAL NEUROPATHY 356.9 [...] AMOXICILLIN 500 MG ORAL CAPS tid AMOXICILLIN 40185900770 Active Catalino Irene MD Active BACTRIM DS TABS Take 1 po BID SULFAMETHOXAZOLE- TRIMETHOPRIM TABS 48031007006 No Longer Active Pam Gomez CASINO DUTY MANAGER Active MACROBID 100 MG CAP 1 cap by mouth twice daily NITROFURANTOIN MONOHYD MACRO 62028037432 No Longer Active Pam Gomez CASINO DUTY MANAGER Active DIFLUCAN 150 MG TAB 1 tablet by mouth daily FLUCONAZOLE 26358157254 Active Pam Gomez CASINO DUTY MANAGER Active CIPRO 250 MG TAB 1 tablet by mouth twice daily CIPROFLOXACIN HCL 31968171309 No Longer Active Pam Gomez LPN Active JANUVIA 100 MG ORAL TABS 1 daily SITAGLIPTIN PHOSPHATE 19257705044 Active Nadir Hector MD Active GLUCOTROL XL 5 MG [id number] one tablet daily GLIPIZIDE 52064609698 No Longer Active Nadir Hector MD Active BACTRIM DS 800-160 MG TABS 1 po BID x 7 days SULFAMETHOXAZOLE-TRIMETHOPRIM 37661387643 No Longer Active Jamal Burrell MD Active FOSAMAX 70 MG TABS 1 po qweek. Take 30min prior to first food/drink. Avoid lying down x 1 hour. ALENDRONATE SODIUM 00650328055 Active Nadir Hector MD Active AMOXICILLIN 500 MG CAPS 2 po BID x 10 days AMOXICILLIN 93092103288 No Longer Active Nadir Hector MD Active JANUVIA 100 MG TABS 1 tablet by mouth daily SITAGLIPTIN PHOSPHATE 82151841430 No Longer Active Nadir Hector MD Active JANUVIA 100 MG TABS Take 1 tab daily SITAGLIPTIN PHOSPHATE 50580015278 No Longer Active Sharon Nuñez Active MACROBID 100 MG CAP 1 cap by mouth twice daily NITROFURANTOIN MONOHYD MACRO 49024435572 No Longer Active Crystal Fernández APRN Active MACRODANTIN 100 MG CAPS 1 capsule by mouth twice daily for seven days NITROFURANTOIN MACROCRYSTAL 54935979696 No Longer Active Ro Yang RN Active BACTRIM DS 800-160 MG TABS one tablet twice a day for seven days SULFAMETHOXAZOLE-TRIMETHOPRIM 93317425310 No Longer Active HEMANTH Griffin Active BACTRIM DS 800-160 MG TABS TAKE ONE TABLET BY MOUTH TWICE DAILY FOR 7 DAYS SULFAMETHOXAZOLE-TRIMETHOPRIM 06874029253 No Longer Active Viviana Lal RN Active CIPRO 250 MG TABS TAKE ONE TABLET BY MOUTH TWICE DAILY FOR 5 DAYS CIPROFLOXACIN HCL 47868332895 No Longer Active Viviana Lal RN Active FLEXERIL 10 MG TABS 1/2 TO 1 TABLET Q12H NEEDED CYCLOBENZAPRINE HCL 53923874577 No Longer Active Meriden Lukasz RN Active AMLODIPINE BESYLATE 5 MG TABS 1 1/2 daily AMLODIPINE BESYLATE 28517921000 Active Nadir Hector MD Active ONGLYZA 5 MG TABS 1 QAM SAXAGLIPTIN HCL 11392592445 No Longer Active Nadir Hector MD Active AMLODIPINE BESYLATE 5 MG TABS 1 1/2 TABLET DAILY AMLODIPINE BESYLATE 89540880399 No Longer Active Nadir Hector MD Active LORTAB 5-500 MG TABS 1 BY MOUTH Q6H NEEDED HYDROCODONE- ACETAMINOPHEN 67654601366 No Longer Active Nadir Hector MD Active ACTOS 45 MG TABS 1 QD PIOGLITAZONE HCL 67140341962 No Longer Active Nadir Hector MD Active BACTRIM DS 800-160 MG TAB 1 tab by mouth twice daily TRIMETHOPRIM-SULFAMETHOXAZOLE 03822916961 No Longer Active Nadir Hector MD Active CALCIUM + D 600-200 MG-UNIT TABS 1 TABLET TWO TIMES A DAY CALCIUM CARBONATE-VITAMIN D 36457621701 Active Ro Trey RN Active METOPROLOL SUCCINATE 25 MG [id number] 1 QAM METOPROLOL SUCCINATE 62237737670 Active Nadir Hector MD Active AMARYL 4 MG TABS 1 QD GLIMEPIRIDE 21117530143 Active Nadir Hector MD Active LOVASTATIN 40 MG TABS 1 QD LOVASTATIN 02878182969 Active Nadir Hector MD Active GLUCOPHAGE 1000 MG TABS 1 TABLET TWO TIMES A DAY METFORMIN HCL 28984088527 Active Nadir Hector MD Active MAXZIDE-25 37.5-25 MG TABS 1 QD TRIAMTERENE-HCTZ 25651733838 Active Nadir Hector MD Active ACCUPRIL 40 MG TABS 1 QD QUINAPRIL HCL 50478223211 Active Nadir Hector MD Active BACTRIM DS 800-160 MG TAB 1 tab by mouth twice daily BACTRIM DS 800-160 MG TAB TRIMETHOPRIM-SULFAMETHOXAZOLE Inactive ACTOS 45 MG TABS 1 QD ACTOS 45 MG TABS 138239 PIOGLITAZONE HCL Inactive LORTAB 5-500 MG TABS 1 BY MOUTH Q6H NEEDED LORTAB 5-500 MG TABS HYDROCODONE-ACETAMINOPHEN Inactive AMLODIPINE BESYLATE 5 MG TABS 1 1/2 TABLET DAILY AMLODIPINE BESYLATE 5 MG TABS 910524 AMLODIPINE BESYLATE Inactive ONGLYZA 5 MG TABS 1 QAM ONGLYZA 5 MG TABS SAXAGLIPTIN HCL Inactive FLEXERIL 10 MG TABS 1/2 TO 1 TABLET Q12H NEEDED FLEXERIL 10 MG TABS CYCLOBENZAPRINE HCL Inactive CIPRO 250 MG TABS TAKE ONE TABLET BY MOUTH TWICE DAILY FOR 5 DAYS CIPRO 250 MG TABS 777339 CIPROFLOXACIN HCL Inactive BACTRIM DS 800-160 MG TABS TAKE ONE TABLET BY MOUTH TWICE DAILY FOR 7 DAYS BACTRIM DS 800-160 MG TABS SULFAMETHOXAZOLE-TRIMETHOPRIM Inactive BACTRIM DS 800-160 MG TABS one tablet twice a day for seven days BACTRIM DS 800-160 MG TABS SULFAMETHOXAZOLE-TRIMETHOPRIM Inactive MACROBID 100 MG CAP 1 cap by mouth twice daily MACROBID 100 MG CAP 825655 NITROFURANTOIN MONOHYD MACRO Inactive JANUVIA 100 MG TABS Take 1 tab daily JANUVIA 100 MG TABS SITAGLIPTIN PHOSPHATE Inactive GLUCOTROL XL 5 MG [id number] one tablet daily GLUCOTROL XL 5 MG [id number] GLIPIZIDE Inactive MACRODANTIN 100 MG CAPS 1 capsule by mouth twice daily for seven days MACRODANTIN 100 MG CAPS 859615 NITROFURANTOIN MACROCRYSTAL Inactive AMOXICILLIN 500 MG CAPS 2 po BID x 10 days AMOXICILLIN 500 MG CAPS 131665 AMOXICILLIN Inactive BACTRIM DS 800-160 MG TABS 1 po BID x 7 days BACTRIM DS 800-160 MG TABS SULFAMETHOXAZOLE-TRIMETHOPRIM Inactive CIPRO 250 MG TAB 1 tablet by mouth twice daily CIPRO 250 MG TAB 303824 CIPROFLOXACIN HCL Inactive MACROBID 100 MG CAP 1 cap by mouth twice daily MACROBID 100 MG CAP 270380 NITROFURANTOIN MONOHYD MACRO Inactive BACTRIM DS TABS [...] Fluvirin, Fluarix, Agriflu(>=18 yo)) Fluzone (>3 yrs.) [[id number]] Influenza, seasonal, injectable Vital Signs Date Name [...] HGBA1C - Chemistry sodium, serum 140 mmol/L 728-962 4750/07/23 potassium, serum 4.5 mmol/L 3.5-5.2 chloride, serum [...] 0.2 Encounters Code Encounter Date Provider Facility CPT-47716 Level 4 New Patient 14:59:23 CDT Catalino Irene MD [facility] CPT-66487 Level 3 Est. Patient 16:43:04 BEVERAGE SERVER Nadir Hector MD [facility] CPT-64513 Level 4 Est. Patient 14:21:01 BEVERAGE SERVER Nadir Hector MD [facility] CPT-44051 Level 3 Est. Patient 16:41:34 CDT Nadir Hector MD [facility] CPT-29213 Level 4 Est. Patient 13:54:35 BEVERAGE SERVER Nadir Hector MD [facility] CPT-33132 Level 3 Est. Patient 15:51:21 CDT Nadir Hector MD [facility] CPT-58514 Level 4 New Patient 15:58:26 CDT Catalino Irene MD [facility] CPT-86977 Level 4 Est. Patient 15:42:38 BEVERAGE SERVER Nadir Hector MD [facility] Procedures Code Procedure Name Date Entry Date Standard Description CPT-33545 Urine Dip (Floor Use Only) 14:59:25 CDT CPT-63522 Bladder Scan 14:59:24 CDT CPT-96582 Cystoscopy 14:59:24 CDT CPT-35824 Abd single AP View 12:13:13 CDT CPT-000 Give Pneumovax 14:21:01 BEVERAGE SERVER CPT-000 Give Appropriate Flu Vaccine 14:21:01 BEVERAGE SERVER CPT-58380 Bone Density 08:41:23 BEVERAGE SERVER CPT-000 Give Appropriate Flu Vaccine 13:54:35 BEVERAGE SERVER CPT-000 Give Pneumovax 13:54:35 BEVERAGE SERVER CPT-67802 Administration 2+ single or combination vaccines inc oral 14:01:24 BEVERAGE SERVER CPT-67298 Administration single or combination vaccine inc oral 14 :01:24 BEVERAGE SERVER CPT-52159 Influenza High Dose age 65+ 14:01:24 BEVERAGE SERVER CPT-41458 Pneumovax 14:01:24 BEVERAGE SERVER CPT-82316 Venipuncture Draw Fee 10:36:48 CDT CPT-000 Give Appropriate Flu Vaccine 15:20:11 BEVERAGE SERVER CPT-44476 Administration single or combination vaccine inc oral 15 :50:33 BEVERAGE SERVER CPT-09025 Influenza High Dose age 65+ 15:50:33 BEVERAGE SERVER CPT-42019 LS spine AP and Lat 15:30:05 BEVERAGE SERVER CPT-94807 Hip comp min 2V 15:30:05 BEVERAGE SERVER CPT-91060 Postop F/U Visit 17:28:18 CDT CPT-OV Office Visit 15:04:38 CDT CPT-91233 Bladder Scan 15:58:26 CDT CPT-74561 Cystoscopy 15:58:26 CDT CPT-OV Office Visit 16:15:09 CDT CPT-000 Give Appropriate Flu Vaccine 16:33:10 BEVERAGE SERVER CPT-40482 Administration single or combination vaccine inc oral 19 :21:12 BEVERAGE SERVER CPT-78770 Influenza split virus > age 3 19:21:12 BEVERAGE SERVER
--- OUTSIDE RECORDS SUMMARY | 2017-07-23 09:55 | XMS REPORT | Clinical Summary ---
Author Author Admin, IMTIAZ Organization [facility] Address Unknown Phone Unavailable Allergies, Adverse Reactions, [...] by mouth twice daily NITROFURANTOIN MONOHYD MACRO [id number] No Longer Active aPm Gomez STEEL TURNER Active DIFLUCAN 150 MG TAB 1 tablet by mouth daily FLUCONAZOLE 44265287043 Active Pam Gomez LPN Active CIPRO 250 MG TAB 1 tablet by mouth twice daily CIPROFLOXACIN HCL 61715611424 No Longer Active Pam Gomez LPN Active JANUVIA 100 MG ORAL TABS 1 daily SITAGLIPTIN PHOSPHATE 57249339409 Active Nadir Hector MD Active GLUCOTROL XL 5 MG [id number] one tablet daily GLIPIZIDE 90075900749 No Longer Active Nadir Hector MD Active BACTRIM DS 800-160 MG TABS 1 po BID x 7 days SULFAMETHOXAZOLE-TRIMETHOPRIM 52063954430 No Longer Active Jamal Burrell MD Active FOSAMAX 70 MG TABS 1 po qweek. Take 30min prior to first food/drink. Avoid lying down x 1 hour. ALENDRONATE SODIUM 93011123369 Active Nadir Hector MD Active AMOXICILLIN 500 MG CAPS 2 po BID x 10 days AMOXICILLIN 25195467461 No Longer Active Nadir Hector MD Active JANUVIA 100 MG TABS 1 tablet by mouth daily SITAGLIPTIN PHOSPHATE 38461567660 No Longer Active Nadir Hector MD Active JANUVIA 100 MG TABS Take 1 tab daily SITAGLIPTIN PHOSPHATE 90286627319 No Longer Active Sharon Nuñez Active MACROBID 100 MG CAP 1 cap by mouth twice daily NITROFURANTOIN MONOHYD MACRO 41127910435 No Longer Active Crystal Fernández APRN Active MACRODANTIN 100 MG CAPS 1 capsule by mouth twice daily for seven days NITROFURANTOIN MACROCRYSTAL 98572714786 No Longer Active Ro Yang RN Active BACTRIM DS 800-160 MG TABS one tablet twice a day for seven days SULFAMETHOXAZOLE-TRIMETHOPRIM 79780116372 No Longer Active HEMANTH Griffin Active BACTRIM DS 800-160 MG TABS TAKE ONE TABLET BY MOUTH TWICE DAILY FOR 7 DAYS SULFAMETHOXAZOLE-TRIMETHOPRIM 80402678942 No Longer Active Viviana Lal RN Active CIPRO 250 MG TABS TAKE ONE TABLET BY MOUTH TWICE DAILY FOR 5 DAYS CIPROFLOXACIN HCL 24080845701 No Longer Active Viviana Lal RN Active FLEXERIL 10 MG TABS 1/2 TO 1 TABLET Q12H NEEDED CYCLOBENZAPRINE HCL 47906195641 No Longer Active Viviana Lal RN Active AMLODIPINE BESYLATE 5 MG TABS 1 1/2 daily AMLODIPINE BESYLATE 84765615347 Active Nadir Hector MD Active ONGLYZA 5 MG TABS 1 QAM SAXAGLIPTIN HCL 07454812803 No Longer Active Nadir Hector MD Active AMLODIPINE BESYLATE 5 MG TABS 1 1/2 TABLET DAILY AMLODIPINE BESYLATE 04548222073 No Longer Active Nadir Hector MD Active LORTAB 5-500 MG TABS 1 BY MOUTH Q6H NEEDED HYDROCODONE- ACETAMINOPHEN 76257100782 No Longer Active Nadir Hector MD Active ACTOS 45 MG TABS 1 QD PIOGLITAZONE HCL 80804802427 No Longer Active Nadir Hector MD Active BACTRIM DS 800-160 MG TAB 1 tab by mouth twice daily TRIMETHOPRIM-SULFAMETHOXAZOLE 66540097705 No Longer Active Nadir Hector MD Active CALCIUM + D 600-200 MG-UNIT TABS 1 TABLET TWO TIMES A DAY CALCIUM CARBONATE-VITAMIN D 09276924199 Active Ro Yang RN Active METOPROLOL SUCCINATE 25 MG [id number] 1 QAM METOPROLOL SUCCINATE 02510416545 Active Nadir Hector MD Active AMARYL 4 MG TABS 1 QD GLIMEPIRIDE 84389475072 Active Nadir Hector MD Active LOVASTATIN 40 MG TABS 1 QD LOVASTATIN 11380002849 Active Nadir Hector MD Active GLUCOPHAGE 1000 MG TABS 1 TABLET TWO TIMES A DAY METFORMIN HCL 56109416440 Active Nadir Hector MD Active MAXZIDE-25 37.5-25 MG TABS 1 QD TRIAMTERENE-HCTZ 24274681856 Active Nadir Hector MD Active ACCUPRIL 40 MG TABS 1 QD QUINAPRIL HCL 28506010375 Active Nadir Hector MD Active BACTRIM DS 800-160 MG TAB 1 tab by mouth twice daily BACTRIM DS 800-160 MG TAB TRIMETHOPRIM-SULFAMETHOXAZOLE Inactive ACTOS 45 MG TABS 1 QD ACTOS 45 MG TABS 204006 PIOGLITAZONE HCL Inactive LORTAB 5-500 MG TABS 1 BY MOUTH Q6H NEEDED LORTAB 5-500 MG TABS HYDROCODONE-ACETAMINOPHEN Inactive AMLODIPINE BESYLATE 5 MG TABS 1 1/2 TABLET DAILY AMLODIPINE BESYLATE 5 MG TABS 214570 AMLODIPINE BESYLATE Inactive ONGLYZA 5 MG TABS [...] mouth twice daily MACROBID 100 MG CAP 689082 NITROFURANTOIN MONOHYD MACRO Inactive JANUVIA 100 MG TABS Take 1 tab daily JANUVIA 100 MG TABS SITAGLIPTIN PHOSPHATE Inactive GLUCOTROL XL 5 MG [id number] one tablet daily GLUCOTROL XL 5 MG [id number] GLIPIZIDE Inactive MACRODANTIN 100 MG CAPS 1 capsule by mouth twice daily for seven days MACRODANTIN 100 MG CAPS 514657 NITROFURANTOIN MACROCRYSTAL Inactive AMOXICILLIN 500 MG CAPS 2 po BID x 10 days AMOXICILLIN 500 MG CAPS 376279 AMOXICILLIN Inactive BACTRIM DS 800-160 MG TABS 1 po BID x 7 days BACTRIM DS 800-160 MG TABS SULFAMETHOXAZOLE-TRIMETHOPRIM Inactive CIPRO 250 MG TAB 1 tablet by mouth twice daily CIPRO 250 MG TAB 19740413 CIPROFLOXACIN HCL Inactive MACROBID 100 MG CAP 1 cap by mouth twice daily MACROBID 100 MG CAP 998054 NITROFURANTOIN MONOHYD MACRO Inactive Advance Directives Directive Description Start Date PERMISSION TO SHARE Immunizations Vaccine Administration Date Value Standard Description pneumococcal immunization administered Pneumovax 23 [CVX33] pneumococcal polysaccharide vaccine, 23 valent Seasonal influenza vaccine, injectable, containing preservative, for > 3 years old (Afluria, FluLaval, Fluzone, Fluvirin, Fluarix, Agriflu(>=18 yo)) Fluzone (>3 yrs.) [[id number]] Influenza, seasonal, injectable Vital Signs Date Name [...] HGBA1C - Chemistry sodium, serum 140 mmol/L 388-678 4478/07/23 potassium, serum 4.5 mmol/L 3.5-5.2 chloride, serum [...] random 3+ mg/dL Negative RBC, urine, dipstick 1+ Negative [...] urine SlCloudy Clear urine color Yellow Colorless;Lightyellow;Straw;Yellow specific gravity, urine 1.030 1.000-1.030 pH, urine, [...] Light yellow Colorless;Lightyellow;Straw;Yellow appearance, urine Cloudy Clear Encounters Code Encounter Date Provider Facility CPT-60161 Level 3 Est. Patient 16:43:04 AERONAUTICS COMMISSION DIRECTOR Nadir Hector MD [facility] CPT-69649 Level 4 Est. Patient 14:21:01 AERONAUTICS COMMISSION DIRECTOR Nadir Hector MD [facility] CPT-93662 Level 3 Est. Patient 16:41:34 CDT Nadir Hector MD [facility] CPT-18609 Level 4 Est. Patient 13:54:35 AERONAUTICS COMMISSION DIRECTOR Nadir Hector MD [facility] CPT-76315 Level 3 Est. Patient 15:51:21 CDT Nadir Hector MD [facility] CPT-54761 Level 4 New Patient 15:58:26 CDT Catalino Irene MD [facility] CPT-01937 Level 4 Est. Patient 15:42:38 A[employer]ONAUTICS COMMISSION DIRECTOR Nadir Hector MD [facility] Procedures Code Procedure Name Date Entry Date Standard Description CPT-000 Give Pneumovax 14:21:01 AERONAUTICS COMMISSION DIRECTOR CPT-000 Give Appropriate Flu Vaccine 14:21:01 [employer]ON[employer] COMMISSION DIRECTOR CPT-95620 Bone Density 08:41:23 [employer] COMMISSION DIRECTOR CPT-000 Give Appropriate Flu Vaccine 13:54:35 A[employer]ON[employer] COMMISSION DIRECTOR CPT-000 Give Pneumovax 13:54:35 A[employer]ON[employer] COMMISSION DIRECTOR CPT-01174 Administration 2+ single or combination vaccines inc oral 14:01:24 A[employer]ON[employer] COMMISSION DIRECTOR CPT-30514 Administration single or combination vaccine inc oral 14 :01:24 [employer]ON[employer] COMMISSION DIRECTOR CPT-09559 Influenza High Dose age 65+ 14:01:24 [employer]ON[employer] COMMISSION DIRECTOR CPT-08879 Pneumovax 14:01:24 A[employer]ON[employer] COMMISSION DIRECTOR CPT-55305 Venipuncture Draw Fee 10:36:48 CDT CPT-000 Give Appropriate Flu Vaccine 15:20:11 A[employer]ON[employer] COMMISSION DIRECTOR CPT-68962 Administration single or combination vaccine inc oral 15 :50:33 A[employer]ONAUTICS COMMISSION DIRECTOR CPT-17075 Influenza High Dose age 65+ 15:50:33 AERONAUTICS COMMISSION DIRECTOR CPT-79645 LS spine AP and Lat 15:30:05 A[employer]ON[employer] COMMISSION DIRECTOR CPT-81213 Hip comp min 2V 15:30:05 AERONAUT[employer] COMMISSION DIRECTOR CPT-76385 Postop F/U Visit 17:28:18 CDT CPT-OV Office Visit 15:04:38 CDT CPT-81463 Bladder Scan 15:58:26 CDT CPT-62063 Cystoscopy 15:58:26 CDT CPT-OV Office Visit 16:15:09 CDT CPT-000 Give Appropriate Flu Vaccine 16:33:10 AERON[employer]ICS COMMISSION DIRECTOR CPT-07613 Administration single or combination vaccine inc oral 19 :21:12 AERONAUTICS COMMISSION DIRECTOR CPT-55776 Influenza split virus > age 3 19:21:12 AERONAUTICS COMMISSION DIRECTOR
--- OUTSIDE RECORDS SUMMARY | 2017-07-23 09:56 | XMS REPORT | Clinical Summary ---
Author Author Admin, IMTIAZ Organization [facility] Address Unknown Phone Unavailable Allergies, Adverse [...] MD Routine general medical examination at a [facility] care facility PERIPHERAL NEUROPATHY 356.9 Active [...] Take 1 po BID SULFAMETHOXAZOLE- TRIMETHOPRIM TABS 16361174473 No Longer Active Pam Gomez LPN Active MACROBID 100 MG CAP 1 cap by mouth twice daily NITROFURANTOIN MONOHYD MACRO 36306705633 No Longer Active Pam Gomez LPN Active DIFLUCAN 150 MG TAB 1 tablet by mouth daily FLUCONAZOLE 14967303289 Active Pam Gomez LPN Active CIPRO 250 MG TAB 1 tablet by mouth twice daily CIPROFLOXACIN HCL 42742809036 No Longer Active Pam Gomez LPN Active JANUVIA 100 MG ORAL TABS 1 daily SITAGLIPTIN PHOSPHATE 62163000869 Active Nadir Hector MD Active GLUCOTROL XL 5 MG [id number] one tablet daily GLIPIZIDE 64583330112 No Longer Active Nadir Hector MD Active BACTRIM DS 800-160 MG TABS 1 po BID x 7 days SULFAMETHOXAZOLE-TRIMETHOPRIM 55126441568 No Longer Active Jamal Burrell MD Active FOSAMAX 70 MG TABS 1 po qweek. Take 30min prior to first food/drink. Avoid lying down x 1 hour. ALENDRONATE SODIUM 58424948488 Active Nadir Hector MD Active AMOXICILLIN 500 MG CAPS 2 po BID x 10 days AMOXICILLIN 75369301685 No Longer Active Nadir Hector MD Active JANUVIA 100 MG TABS 1 tablet by mouth daily SITAGLIPTIN PHOSPHATE 73176584847 No Longer Active Nadir Hector MD Active JANUVIA 100 MG TABS Take 1 tab daily SITAGLIPTIN PHOSPHATE 98380095710 No Longer Active Sharon Nuñez Active MACROBID 100 MG CAP 1 cap by mouth twice daily NITROFURANTOIN MONOHYD MACRO 41811982327 No Longer Active Crystal Fernández APRN Active MACRODANTIN 100 MG CAPS 1 capsule by mouth twice daily for seven days NITROFURANTOIN MACROCRYSTAL 49611391138 No Longer Active Ro Yang RN Active BACTRIM DS 800-160 MG TABS one tablet twice a day for seven days SULFAMETHOXAZOLE-TRIMETHOPRIM 17292628966 No Longer Active HEMANTH Griffin Active BACTRIM DS 800-160 MG TABS TAKE ONE TABLET BY MOUTH TWICE DAILY FOR 7 DAYS SULFAMETHOXAZOLE-TRIMETHOPRIM 12162032600 No Longer Active Viviana Lal RN Active CIPRO 250 MG TABS TAKE ONE TABLET BY MOUTH TWICE DAILY FOR 5 DAYS CIPROFLOXACIN HCL 64698869643 No Longer Active Viviaan Lal RN Active FLEXERIL 10 MG TABS 1/2 TO 1 TABLET Q12H NEEDED CYCLOBENZAPRINE HCL 93211977415 No Longer Active Viviana Lal RN Active AMLODIPINE BESYLATE 5 MG TABS 1 1/2 daily AMLODIPINE BESYLATE 11634428956 Active Nadir Hector MD Active ONGLYZA 5 MG TABS 1 QAM SAXAGLIPTIN HCL 12683722030 No Longer Active Nadir Hector MD Active AMLODIPINE BESYLATE 5 MG TABS 1 1/2 TABLET DAILY AMLODIPINE BESYLATE 50004076567 No Longer Active Nadir Hector MD Active LORTAB 5-500 MG TABS 1 BY MOUTH Q6H NEEDED HYDROCODONE- ACETAMINOPHEN 67387267777 No Longer Active Nadir Hector MD Active ACTOS 45 MG TABS 1 QD PIOGLITAZONE HCL 42515009101 No Longer Active Nadir Hector MD Active BACTRIM DS 800-160 MG TAB 1 tab by mouth twice daily TRIMETHOPRIM-SULFAMETHOXAZOLE 64057416311 No Longer Active Nadir Hector MD Active CALCIUM + D 600-200 MG-UNIT TABS 1 TABLET TWO TIMES A DAY CALCIUM CARBONATE-VITAMIN D 44278857970 Active Ro Yang RN Active METOPROLOL SUCCINATE 25 MG [id number] 1 QAM METOPROLOL SUCCINATE 31741419698 Active Nadir Hector MD Active AMARYL 4 MG TABS 1 QD GLIMEPIRIDE 04016003337 Active Nadir Hector MD Active LOVASTATIN 40 MG TABS 1 QD LOVASTATIN 83417867174 Active Nadir Hector MD Active GLUCOPHAGE 1000 MG TABS 1 TABLET TWO TIMES A DAY METFORMIN HCL 61340866920 Active Nadir Hector MD Active MAXZIDE-25 37.5-25 MG TABS 1 QD TRIAMTERENE-HCTZ 89900373747 Active Nadir Hector MD Active ACCUPRIL 40 MG TABS 1 QD QUINAPRIL HCL 17240683048 Active Nadir Hector MD Active BACTRIM DS 800-160 MG TAB 1 tab by mouth twice daily BACTRIM DS 800-160 MG TAB TRIMETHOPRIM-SULFAMETHOXAZOLE Inactive ACTOS 45 MG TABS 1 QD ACTOS 45 MG TABS 490708 PIOGLITAZONE HCL Inactive LORTAB 5-500 MG TABS 1 BY MOUTH Q6H NEEDED LORTAB 5-500 MG TABS HYDROCODONE-ACETAMINOPHEN Inactive AMLODIPINE BESYLATE 5 MG TABS 1 1/2 TABLET DAILY AMLODIPINE BESYLATE 5 MG TABS 027955 AMLODIPINE BESYLATE Inactive ONGLYZA 5 MG TABS [...] mouth twice daily MACROBID 100 MG CAP 768265 NITROFURANTOIN MONOHYD MACRO Inactive JANUVIA 100 MG TABS Take 1 tab daily JANUVIA 100 MG TABS SITAGLIPTIN PHOSPHATE Inactive GLUCOTROL XL 5 MG [id number] one tablet daily GLUCOTROL XL 5 MG [id number] GLIPIZIDE Inactive MACRODANTIN 100 MG CAPS 1 capsule by mouth twice daily for seven days MACRODANTIN 100 MG CAPS 742076 NITROFURANTOIN MACROCRYSTAL Inactive AMOXICILLIN 500 MG CAPS 2 po BID x 10 days AMOXICILLIN 500 MG CAPS 022525 AMOXICILLIN Inactive BACTRIM DS 800-160 MG TABS 1 po BID x 7 days BACTRIM DS 800-160 MG TABS SULFAMETHOXAZOLE-TRIMETHOPRIM Inactive CIPRO 250 MG TAB 1 tablet by mouth twice daily CIPRO 250 MG TAB 19740413 CIPROFLOXACIN HCL Inactive MACROBID 100 MG CAP 1 cap by mouth twice daily MACROBID 100 MG CAP 533014 NITROFURANTOIN MONOHYD MACRO Inactive BACTRIM DS TABS [...] Fluvirin, Fluarix, Agriflu(>=18 yo)) Fluzone (>3 yrs.) [[id number]] Influenza, seasonal, injectable Vital Signs Date Name [...] Report: Comp. Metabolic Panel, HGBA1C - Chemistry blood glucose 151 mg/dL 65-110 carbon dioxide, venous blood 30.0 mmol/L 21.0-32.0 chloride, serum 104 mmol/L 98-107 potassium, serum 4.5 mmol/L 3.5-5.2 sodium, serum 140 mmol/L 663-955 5413/07/23 urea nitrogen, blood 19 mg/dL 7-18 creatinine, [...] 3+ mg/dL Negative protein, total urine random Trace [...] 1.025 1.000-1.030 pH, urine, semiquantitative 6.0 5.0-8.5 urine color Yellow Colorless;Lightyellow;Straw;Yellow appearance, urine Clear Clear specific gravity, urine 1.025 1.000-1.030 pH, urine, semiquantitative 6.0 5.0-8.5 urobilinogen, urine, semiquantitative (dipstick) 0.2 Normal leukocyte esterase, urine, by dipstick 2+ Negative nitrite, urine, semiquantitative Negative Negative glucose, [...] 5.0-8.5 Encounters Code Encounter Date Provider Facility CPT-58048 Level 3 Est. Patient 16:43:04 REFRIGERATION MANAGER Nadir Hector MD [facility] CPT-04527 Level 4 Est. Patient 14:21:01 REFRIGERATION MANAGER Nadir Hector MD [facility] CPT-60906 Level 3 Est. Patient 16:41:34 CDT Nadir Hector MD [facility] CPT-15576 Level 4 Est. Patient 13:54:35 REFRIGERATION MANAGER Nadir Hector MD [facility] CPT-13320 Level 3 Est. Patient 15:51:21 CDT Nadir Hector MD [facility] CPT-04475 Level 4 New Patient 15:58:26 CDT Catalino Irene MD [facility] CPT-67391 Level 4 Est. Patient 15:42:38 REFRIGERATION MANAGER Nadir Hector MD [facility] Procedures Code Procedure Name Date Entry Date Standard Description CPT-65963 Abd single AP View 12:13:13 CDT CPT-000 Give Pneumovax 14:21:01 REFRIGERATION MANAGER CPT-000 Give Appropriate Flu Vaccine 14:21:01 REFRIGERATION MANAGER CPT-03497 Bone Density 08:41:23 REFRIGERATION MANAGER CPT-000 Give Appropriate Flu Vaccine 13:54:35 REFRIGERATION MANAGER CPT-000 Give Pneumovax 13:54:35 REFRIGERATION MANAGER CPT-16556 Administration 2+ single or combination vaccines inc oral 14:01:24 REFRIGERATION MANAGER CPT-20981 Administration single or combination vaccine inc oral 14 :01:24 REFRIGERATION MANAGER CPT-57778 Influenza High Dose age 65+ 14:01:24 REFRIGERATION MANAGER CPT-16602 Pneumovax 14:01:24 REFRIGERATION MANAGER CPT-71770 Venipuncture Draw Fee 10:36:48 CDT CPT-000 Give Appropriate Flu Vaccine 15:20:11 REFRIGERATION MANAGER CPT-54569 Administration single or combination vaccine inc oral 15 :50:33 REFRIGERATION MANAGER CPT-39159 Influenza High Dose age 65+ 15:50:33 REFRIGERATION MANAGER CPT-43451 LS spine AP and Lat 15:30:05 REFRIGERATION MANAGER CPT-67164 Hip comp min 2V 15:30:05 REFRIGERATION MANAGER CPT-44179 Postop F/U Visit 17:28:18 CDT CPT-OV Office Visit 15:04:38 CDT CPT-75401 Bladder Scan 15:58:26 CDT CPT-29485 Cystoscopy 15:58:26 CDT CPT-OV Office Visit 16:15:09 CDT CPT-000 Give Appropriate Flu Vaccine 16:33:10 REFRIGERATION MANAGER CPT-69819 Administration single or combination vaccine inc oral 19 :21:12 REFRIGERATION MANAGER CPT-60679 Influenza split virus > age 3 19:21:12 REFRIGERATION MANAGER
--- OUTSIDE RECORDS SUMMARY | 2017-07-23 09:57 | XMS REPORT | Clinical Summary ---
Author Author Admin, IMTIAZ Organization [facility] Address Unknown Phone Unavailable Allergies, Adverse Reactions, [...] Routine general medical examination at a 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 Take 30min prior to first food/drink. Avoid lying down x 1 hour. ALENDRONATE SODIUM 82743491346 Active Nadir Hector MD Active AMOXICILLIN 500 MG CAPS 2 po BID x 10 days AMOXICILLIN 79319407865 No Longer Active Nadir Hector MD Active JANUVIA 100 MG TABS 1 tablet by mouth daily SITAGLIPTIN PHOSPHATE 25014937471 No Longer Active Nadir Hector MD Active JANUVIA 100 MG TABS Take 1 tab daily SITAGLIPTIN PHOSPHATE 07509056458 No Longer Active Sharon Nuñez Active MACROBID 100 MG CAP 1 cap by mouth twice daily NITROFURANTOIN MONOHYD MACRO 73015553642 No Longer Active Crystal Fernández APRN Active MACRODANTIN 100 MG CAPS 1 capsule by mouth twice daily for seven days NITROFURANTOIN MACROCRYSTAL 61512818603 No Longer Active Ro Yang RN Active BACTRIM DS 800-160 MG TABS one tablet twice a day for seven days SULFAMETHOXAZOLE-TRIMETHOPRIM 88070159899 No Longer Active HEMANTH Griffin Active BACTRIM DS 800-160 MG TABS TAKE ONE TABLET BY MOUTH TWICE DAILY FOR 7 DAYS SULFAMETHOXAZOLE-TRIMETHOPRIM 08030601439 No Longer Active Viviana Lal RN Active CIPRO 250 MG TABS TAKE ONE TABLET BY MOUTH TWICE DAILY FOR 5 DAYS CIPROFLOXACIN HCL 90330684484 No Longer Active Viviana Lal RN Active FLEXERIL 10 MG TABS 1/2 TO 1 TABLET Q12H NEEDED CYCLOBENZAPRINE HCL 83970929415 No Longer Active [place] Lukasz RN Active AMLODIPINE BESYLATE 5 MG TABS 1 1/2 daily AMLODIPINE BESYLATE 74580945875 Active Nadir Hector MD Active ONGLYZA 5 MG TABS 1 QAM SAXAGLIPTIN HCL 88586089959 No Longer Active Nadir Hector MD Active AMLODIPINE BESYLATE 5 MG TABS 1 1/2 TABLET DAILY AMLODIPINE BESYLATE 14697776122 No Longer Active Nadir Hector MD Active LORTAB 5-500 MG TABS 1 BY MOUTH Q6H NEEDED HYDROCODONE- ACETAMINOPHEN 21902502655 No Longer Active Nadir Hector MD Active ACTOS 45 MG TABS 1 QD PIOGLITAZONE HCL 14702501332 No Longer Active Nadir Hector MD Active BACTRIM DS 800-160 MG TAB 1 tab by mouth twice daily TRIMETHOPRIM-SULFAMETHOXAZOLE 94492138110 No Longer Active Nadir Hector MD Active CALCIUM + D 600-200 MG-UNIT TABS 1 TABLET TWO TIMES A DAY CALCIUM CARBONATE-VITAMIN D 30921687013 Active Ro Trey RN Active METOPROLOL SUCCINATE 25 MG [id number] 1 QAM METOPROLOL SUCCINATE 88743436330 Active Nadir Hector MD Active AMARYL 4 MG TABS 1 QD GLIMEPIRIDE 47604004795 Active Nadir Hector MD Active LOVASTATIN 40 MG TABS 1 QD LOVASTATIN 64466405942 Active Nadir Hector MD Active GLUCOPHAGE 1000 MG TABS 1 TABLET TWO TIMES A DAY METFORMIN HCL 85736281777 Active Nadir Hector MD Active MAXZIDE-25 37.5-25 MG TABS 1 QD TRIAMTERENE-HCTZ 22836532098 Active Nadir Hector MD Active ACCUPRIL 40 MG TABS 1 QD QUINAPRIL HCL 10366830708 Active Nadir Hector MD Active BACTRIM DS 800-160 MG TAB 1 tab by mouth twice daily BACTRIM DS 800-160 MG TAB TRIMETHOPRIM-SULFAMETHOXAZOLE Inactive ACTOS 45 MG TABS 1 QD ACTOS 45 MG TABS 627746 PIOGLITAZONE HCL Inactive LORTAB 5-500 MG TABS 1 BY MOUTH Q6H NEEDED LORTAB 5-500 MG TABS HYDROCODONE-ACETAMINOPHEN Inactive AMLODIPINE BESYLATE 5 MG TABS 1 1/2 TABLET DAILY AMLODIPINE BESYLATE 5 MG TABS 727979 AMLODIPINE BESYLATE Inactive ONGLYZA 5 MG TABS 1 QAM ONGLYZA 5 MG TABS SAXAGLIPTIN HCL Inactive FLEXERIL 10 MG TABS 1/2 TO 1 TABLET Q12H NEEDED FLEXERIL 10 MG TABS CYCLOBENZAPRINE HCL Inactive CIPRO 250 MG TABS TAKE ONE TABLET BY MOUTH TWICE DAILY FOR 5 DAYS CIPRO 250 MG TABS 203610 CIPROFLOXACIN HCL Inactive BACTRIM DS 800-160 MG TABS TAKE ONE TABLET BY MOUTH TWICE DAILY FOR 7 DAYS BACTRIM DS 800-160 MG TABS SULFAMETHOXAZOLE-TRIMETHOPRIM Inactive BACTRIM DS 800-160 MG TABS one tablet twice a day for seven days BACTRIM DS 800-160 MG TABS SULFAMETHOXAZOLE-TRIMETHOPRIM Inactive MACROBID 100 MG CAP 1 cap by mouth twice daily MACROBID 100 MG CAP 626449 NITROFURANTOIN MONOHYD MACRO Inactive JANUVIA 100 MG TABS Take 1 tab daily JANUVIA 100 MG TABS SITAGLIPTIN PHOSPHATE Inactive GLUCOTROL XL 5 MG [id number] one tablet daily GLUCOTROL XL 5 MG [id number] GLIPIZIDE Inactive MACRODANTIN 100 MG CAPS 1 capsule by mouth twice daily for seven days MACRODANTIN 100 MG CAPS 424454 NITROFURANTOIN MACROCRYSTAL Inactive AMOXICILLIN 500 MG CAPS 2 po BID x 10 days AMOXICILLIN 500 MG CAPS 412894 AMOXICILLIN Inactive BACTRIM DS 800-160 MG TABS 1 po BID x 7 days BACTRIM DS 800-160 MG TABS SULFAMETHOXAZOLE-TRIMETHOPRIM Inactive CIPRO 250 MG TAB 1 tablet by mouth twice daily CIPRO 250 MG TAB 395520 CIPROFLOXACIN HCL Inactive MACROBID 100 MG CAP 1 cap by mouth twice daily MACROBID 100 MG CAP 000602 NITROFURANTOIN MONOHYD MACRO Inactive BACTRIM DS TABS [...] Fluvirin, Fluarix, Agriflu(>=18 yo)) Fluzone (>3 yrs.) [[id number]] Influenza, seasonal, injectable Vital Signs Date Name [...] 6.5 5.0-8.5 glucose, urine, semiquantitative Negative Negative ketones, [...] 1.025 1.000-1.030 pH, urine, semiquantitative 6.0 5.0-8.5 Office Visit: CN recurrent UTI - [...] 0.2 Encounters Code Encounter Date Provider Facility CPT-79467 Level 4 New Patient 14:59:23 CDT Catalino Irene MD [facility] CPT-29456 Level 3 Est. Patient 16:43:04 ACTIVITIES VOLUNTEER Nadir Hector MD [facility] CPT-19026 Level 4 Est. Patient 14:21:01 ACTIVITIES VOLUNTEER Nadir Hector MD [facility] CPT-69523 Level 3 Est. Patient 16:41:34 CDT Nadir Hector MD [facility] CPT-85705 Level 4 Est. Patient 13:54:35 ACTIVITIES VOLUNTEER Nadir Hector MD [facility] CPT-29776 Level 3 Est. Patient 15:51:21 CDT Nadir Hector MD [facility] CPT-51372 Level 4 New Patient 15:58:26 CDT Catalino Irene MD [facility] CPT-87961 Level 4 Est. Patient 15:42:38 ACTIVITIES VOLUNTEER Nadir Hector MD [facility] Procedures Code Procedure Name Date Entry Date Standard Description CPT-18025 Urine Dip (Floor Use Only) 14:59:25 CDT CPT-82038 Bladder Scan 14:59:24 CDT CPT-63896 Cystoscopy 14:59:24 CDT CPT-73019 Abd single AP View 12:13:13 CDT CPT-000 Give Pneumovax 14:21:01 ACTIVITIES VOLUNTEER CPT-000 Give Appropriate Flu Vaccine 14:21:01 ACTIVITIES VOLUNTEER CPT-16141 Bone Density 08:41:23 ACTIVITIES VOLUNTEER CPT-000 Give Appropriate Flu Vaccine 13:54:35 ACTIVITIES VOLUNTEER CPT-000 Give Pneumovax 13:54:35 ACTIVITIES VOLUNTEER CPT-44219 Administration 2+ single or combination vaccines inc oral 14:01:24 ACTIVITIES VOLUNTEER CPT-13226 Administration single or combination vaccine inc oral 14 :01:24 ACTIVITIES VOLUNTEER CPT-54585 Influenza High Dose age 65+ 14:01:24 ACTIVITIES VOLUNTEER CPT-62634 Pneumovax 14:01:24 ACTIVITIES VOLUNTEER CPT-62004 Venipuncture Draw Fee 10:36:48 CDT CPT-000 Give Appropriate Flu Vaccine 15:20:11 ACTIVITIES VOLUNTEER CPT-00527 Administration single or combination vaccine inc oral 15 :50:33 ACTIVITIES VOLUNTEER CPT-67837 Influenza High Dose age 65+ 15:50:33 ACTIVITIES VOLUNTEER CPT-03516 LS spine AP and Lat 15:30:05 ACTIVITIES VOLUNTEER CPT-36200 Hip comp min 2V 15:30:05 ACTIVITIES VOLUNTEER CPT-68090 Postop F/U Visit 17:28:18 CDT CPT-OV Office Visit 15:04:38 CDT CPT-00374 Bladder Scan 15:58:26 CDT CPT-02484 Cystoscopy 15:58:26 CDT CPT-OV Office Visit 16:15:09 CDT CPT-000 Give Appropriate Flu Vaccine 16:33:10 ACTIVITIES VOLUNTEER CPT-65447 Administration single or combination vaccine inc oral 19 :21:12 ACTIVITIES VOLUNTEER CPT-33240 Influenza split virus > age 3 19:21:12 ACTIVITIES VOLUNTEER
--- OUTSIDE RECORDS SUMMARY | 2017-07-23 09:58 | XMS REPORT | Clinical Summary ---
Author Author Admin, IMTIAZ Organization [facility] Address Unknown Phone Unavailable Allergies, [...] MD Routine general medical examination at a [facility] care facility PERIPHERAL NEUROPATHY 356.9 [...] AMOXICILLIN 500 MG ORAL CAPS tid AMOXICILLIN 52620154148 Active Catalino Irene MD Active BACTRIM DS TABS Take 1 po BID SULFAMETHOXAZOLE- TRIMETHOPRIM TABS 97029599686 No Longer Active Pam Gomez CLIENT ACCOUNT REPRESENTATIVE Active MACROBID 100 MG CAP 1 cap by mouth twice daily NITROFURANTOIN MONOHYD MACRO 46934572817 No Longer Active Pam Gomez CLIENT ACCOUNT REPRESENTATIVE Active DIFLUCAN 150 MG TAB 1 tablet by mouth daily FLUCONAZOLE 88589582177 Active Pam Gomez CLIENT ACCOUNT REPRESENTATIVE Active CIPRO 250 MG TAB 1 tablet by mouth twice daily CIPROFLOXACIN HCL 73110630107 No Longer Active Pam Gomez LPN Active JANUVIA 100 MG ORAL TABS 1 daily SITAGLIPTIN PHOSPHATE 33509107332 Active Nadir Hector MD Active GLUCOTROL XL 5 MG [id number] one tablet daily GLIPIZIDE 36694780502 No Longer Active Nadir Hector MD Active BACTRIM DS 800-160 MG TABS 1 po BID x 7 days SULFAMETHOXAZOLE-TRIMETHOPRIM 88786494029 No Longer Active Jamal Burrell MD Active FOSAMAX 70 MG TABS 1 po qweek. Take 30min prior to first food/drink. Avoid lying down x 1 hour. ALENDRONATE SODIUM 78889283615 Active Nadir Hector MD Active AMOXICILLIN 500 MG CAPS 2 po BID x 10 days AMOXICILLIN 31805456192 No Longer Active Nadir Hector MD Active JANUVIA 100 MG TABS 1 tablet by mouth daily SITAGLIPTIN PHOSPHATE 50413790359 No Longer Active Nadir Hector MD Active JANUVIA 100 MG TABS Take 1 tab daily SITAGLIPTIN PHOSPHATE 99016747727 No Longer Active Sharon Nuñez Active MACROBID 100 MG CAP 1 cap by mouth twice daily NITROFURANTOIN MONOHYD MACRO 94791383244 No Longer Active Crystal Fernández APRN Active MACRODANTIN 100 MG CAPS 1 capsule by mouth twice daily for seven days NITROFURANTOIN MACROCRYSTAL 16211043631 No Longer Active Ro Yang RN Active BACTRIM DS 800-160 MG TABS one tablet twice a day for seven days SULFAMETHOXAZOLE-TRIMETHOPRIM 79455478055 No Longer Active HEMANTH Griffin Active BACTRIM DS 800-160 MG TABS TAKE ONE TABLET BY MOUTH TWICE DAILY FOR 7 DAYS SULFAMETHOXAZOLE-TRIMETHOPRIM 70822455850 No Longer Active Vviiana Lal RN Active CIPRO 250 MG TABS TAKE ONE TABLET BY MOUTH TWICE DAILY FOR 5 DAYS CIPROFLOXACIN HCL 07171034628 No Longer Active Viviana Lal RN Active FLEXERIL 10 MG TABS 1/2 TO 1 TABLET Q12H NEEDED CYCLOBENZAPRINE HCL 07319516146 No Longer Active [place] Lukasz RN Active AMLODIPINE BESYLATE 5 MG TABS 1 1/2 daily AMLODIPINE BESYLATE 80002301213 Active Nadir Hector MD Active ONGLYZA 5 MG TABS 1 QAM SAXAGLIPTIN HCL 94246385598 No Longer Active Nadir Hector MD Active AMLODIPINE BESYLATE 5 MG TABS 1 1/2 TABLET DAILY AMLODIPINE BESYLATE 17539594806 No Longer Active Nadir Hector MD Active LORTAB 5-500 MG TABS 1 BY MOUTH Q6H NEEDED HYDROCODONE- ACETAMINOPHEN 44597755407 No Longer Active Nadir Hector MD Active ACTOS 45 MG TABS 1 QD PIOGLITAZONE HCL 19872564287 No Longer Active Nadir Hector MD Active BACTRIM DS 800-160 MG TAB 1 tab by mouth twice daily TRIMETHOPRIM-SULFAMETHOXAZOLE 69006669258 No Longer Active Nadir Hector MD Active CALCIUM + D 600-200 MG-UNIT TABS 1 TABLET TWO TIMES A DAY CALCIUM CARBONATE-VITAMIN D 99836027195 Active Ro Trey RN Active METOPROLOL SUCCINATE 25 MG [id number] 1 QAM METOPROLOL SUCCINATE 61003363099 Active Nadir Hector MD Active AMARYL 4 MG TABS 1 QD GLIMEPIRIDE 17963903535 Active Nadir Hector MD Active LOVASTATIN 40 MG TABS 1 QD LOVASTATIN 78097214124 Active Nadir Hector MD Active GLUCOPHAGE 1000 MG TABS 1 TABLET TWO TIMES A DAY METFORMIN HCL 56284988960 Active Nadir Hector MD Active MAXZIDE-25 37.5-25 MG TABS 1 QD TRIAMTERENE-HCTZ 47410771982 Active Nadir Hector MD Active ACCUPRIL 40 MG TABS 1 QD QUINAPRIL HCL 16674101679 Active Nadir Hector MD Active BACTRIM DS 800-160 MG TAB 1 tab by mouth twice daily BACTRIM DS 800-160 MG TAB TRIMETHOPRIM-SULFAMETHOXAZOLE Inactive ACTOS 45 MG TABS 1 QD ACTOS 45 MG TABS 887056 PIOGLITAZONE HCL Inactive LORTAB 5-500 MG TABS 1 BY MOUTH Q6H NEEDED LORTAB 5-500 MG TABS HYDROCODONE-ACETAMINOPHEN Inactive AMLODIPINE BESYLATE 5 MG TABS 1 1/2 TABLET DAILY AMLODIPINE BESYLATE 5 MG TABS 097087 AMLODIPINE BESYLATE Inactive ONGLYZA 5 MG TABS 1 QAM ONGLYZA 5 MG TABS SAXAGLIPTIN HCL Inactive FLEXERIL 10 MG TABS 1/2 TO 1 TABLET Q12H NEEDED FLEXERIL 10 MG TABS CYCLOBENZAPRINE HCL Inactive CIPRO 250 MG TABS TAKE ONE TABLET BY MOUTH TWICE DAILY FOR 5 DAYS CIPRO 250 MG TABS 888031 CIPROFLOXACIN HCL Inactive BACTRIM DS 800-160 MG TABS TAKE ONE TABLET BY MOUTH TWICE DAILY FOR 7 DAYS BACTRIM DS 800-160 MG TABS SULFAMETHOXAZOLE-TRIMETHOPRIM Inactive BACTRIM DS 800-160 MG TABS one tablet twice a day for seven days BACTRIM DS 800-160 MG TABS SULFAMETHOXAZOLE-TRIMETHOPRIM Inactive MACROBID 100 MG CAP 1 cap by mouth twice daily MACROBID 100 MG CAP 029952 NITROFURANTOIN MONOHYD MACRO Inactive JANUVIA 100 MG TABS Take 1 tab daily JANUVIA 100 MG TABS SITAGLIPTIN PHOSPHATE Inactive GLUCOTROL XL 5 MG [id number] one tablet daily GLUCOTROL XL 5 MG [id number] GLIPIZIDE Inactive MACRODANTIN 100 MG CAPS 1 capsule by mouth twice daily for seven days MACRODANTIN 100 MG CAPS 449536 NITROFURANTOIN MACROCRYSTAL Inactive AMOXICILLIN 500 MG CAPS 2 po BID x 10 days AMOXICILLIN 500 MG CAPS 967447 AMOXICILLIN Inactive BACTRIM DS 800-160 MG TABS 1 po BID x 7 days BACTRIM DS 800-160 MG TABS SULFAMETHOXAZOLE-TRIMETHOPRIM Inactive CIPRO 250 MG TAB 1 tablet by mouth twice daily CIPRO 250 MG TAB 633860 CIPROFLOXACIN HCL Inactive MACROBID 100 MG CAP 1 cap by mouth twice daily MACROBID 100 MG CAP 588435 NITROFURANTOIN MONOHYD MACRO Inactive BACTRIM DS TABS [...] Fluvirin, Fluarix, Agriflu(>=18 yo)) Fluzone (>3 yrs.) [[id number]] Influenza, seasonal, injectable Vital Signs Date Name [...] HGBA1C - Chemistry sodium, serum 140 mmol/L 667-143 6311/07/23 potassium, serum 4.5 mmol/L 3.5-5.2 chloride, serum [...] 0.2 Encounters Code Encounter Date Provider Facility CPT-12530 Level 4 New Patient 14:59:23 CDT Catalino Irene MD [facility] CPT-00239 Level 3 Est. Patient 16:43:04 SHOE REPAIRER Nadir Hector MD [facility] CPT-07443 Level 4 Est. Patient 14:21:01 SHOE REPAIRER Nadir Hector MD [facility] CPT-06702 Level 3 Est. Patient 16:41:34 CDT Nadir Hector MD [facility] CPT-38569 Level 4 Est. Patient 13:54:35 SHOE REPAIRER Nadir Hector MD [facility] CPT-27720 Level 3 Est. Patient 15:51:21 CDT Nadir Hector MD [facility] CPT-39081 Level 4 New Patient 15:58:26 CDT Catalino Irene MD [facility] CPT-34797 Level 4 Est. Patient 15:42:38 SHOE REPAIRER Nadir Hector MD [facility] Procedures Code Procedure Name Date Entry Date Standard Description CPT-85729 Urine Dip (Floor Use Only) 14:59:25 CDT CPT-27175 Bladder Scan 14:59:24 CDT CPT-75292 Cystoscopy 14:59:24 CDT CPT-54417 Abd single AP View 12:13:13 CDT CPT-000 Give Pneumovax 14:21:01 SHOE REPAIRER CPT-000 Give Appropriate Flu Vaccine 14:21:01 SHOE REPAIRER CPT-14444 Bone Density 08:41:23 SHOE REPAIRER CPT-000 Give Appropriate Flu Vaccine 13:54:35 SHOE REPAIRER CPT-000 Give Pneumovax 13:54:35 SHOE REPAIRER CPT-00146 Administration 2+ single or combination vaccines inc oral 14:01:24 SHOE REPAIRER CPT-09550 Administration single or combination vaccine inc oral 14 :01:24 SHOE REPAIRER CPT-68017 Influenza High Dose age 65+ 14:01:24 SHOE REPAIRER CPT-64569 Pneumovax 14:01:24 SHOE REPAIRER CPT-53855 Venipuncture Draw Fee 10:36:48 CDT CPT-000 Give Appropriate Flu Vaccine 15:20:11 SHOE REPAIRER CPT-22519 Administration single or combination vaccine inc oral 15 :50:33 SHOE REPAIRER CPT-93021 Influenza High Dose age 65+ 15:50:33 SHOE REPAIRER CPT-57867 LS spine AP and Lat 15:30:05 SHOE REPAIRER CPT-18203 Hip comp min 2V 15:30:05 SHOE REPAIRER CPT-91760 Postop F/U Visit 17:28:18 CDT CPT-OV Office Visit 15:04:38 CDT CPT-55750 Bladder Scan 15:58:26 CDT CPT-01351 Cystoscopy 15:58:26 CDT CPT-OV Office Visit 16:15:09 CDT CPT-000 Give Appropriate Flu Vaccine 16:33:10 SHOE REPAIRER CPT-42344 Administration single or combination vaccine inc oral 19 :21:12 SHOE REPAIRER CPT-01423 Influenza split virus > age 3 19:21:12 SHOE REPAIRER
--- OUTSIDE RECORDS SUMMARY | 2017-07-23 09:59 | XMS REPORT | Clinical Summary ---
Author Author Admin, IMTIAZ Organization [facility] Address Unknown Phone Unavailable [...] general medical examination at a [facility] care facility PERIPHERAL NEUROPATHY 356.9 Active [...] AMOXICILLIN 500 MG ORAL CAPS tid AMOXICILLIN 76668460281 No Longer Active Catalino Irene MD Active BACTRIM DS TABS Take 1 po BID SULFAMETHOXAZOLE- TRIMETHOPRIM TABS 07070072844 No Longer Active Pam Gomez LPN Active MACROBID 100 MG CAP 1 cap by mouth twice daily NITROFURANTOIN MONOHYD MACRO 40492264032 No Longer Active Pam Gomez LPN Active DIFLUCAN 150 MG TAB 1 tablet by mouth daily FLUCONAZOLE 13153100816 Active Pam Gomez LPN Active CIPRO 250 MG TAB 1 tablet by mouth twice daily CIPROFLOXACIN HCL 18726840885 No Longer Active Pam Gomez LPN Active JANUVIA 100 MG ORAL TABS 1 daily SITAGLIPTIN PHOSPHATE 89557536179 Active Nadir Hector MD Active GLUCOTROL XL 5 MG [id number] one tablet daily GLIPIZIDE 99277227251 No Longer Active Nadir Hector MD Active BACTRIM DS 800-160 MG TABS 1 po BID x 7 days SULFAMETHOXAZOLE-TRIMETHOPRIM 11559043054 No Longer Active Jamal Burrell MD Active FOSAMAX 70 MG TABS 1 po qweek. Take 30min prior to first food/drink. Avoid lying down x 1 hour. ALENDRONATE SODIUM 13021635814 Active Nadir Hector MD Active AMOXICILLIN 500 MG CAPS 2 po BID x 10 days AMOXICILLIN 22496931626 No Longer Active Nadir Hector MD Active JANUVIA 100 MG TABS 1 tablet by mouth daily SITAGLIPTIN PHOSPHATE 21786638423 No Longer Active Nadir Hector MD Active JANUVIA 100 MG TABS Take 1 tab daily SITAGLIPTIN PHOSPHATE 73751458361 No Longer Active Sharon Nuñez Active MACROBID 100 MG CAP 1 cap by mouth twice daily NITROFURANTOIN MONOHYD MACRO 92545549627 No Longer Active Crystal Fernández APRN Active MACRODANTIN 100 MG CAPS 1 capsule by mouth twice daily for seven days NITROFURANTOIN MACROCRYSTAL 32635115860 No Longer Active Ro Yang RN Active BACTRIM DS 800-160 MG TABS one tablet twice a day for seven days SULFAMETHOXAZOLE-TRIMETHOPRIM 31427532690 No Longer Active HEMANTH Griffin Active BACTRIM DS 800-160 MG TABS TAKE ONE TABLET BY MOUTH TWICE DAILY FOR 7 DAYS SULFAMETHOXAZOLE-TRIMETHOPRIM 00092814782 No Longer Active Viviana Lal RN Active CIPRO 250 MG TABS TAKE ONE TABLET BY MOUTH TWICE DAILY FOR 5 DAYS CIPROFLOXACIN HCL 65575674827 No Longer Active Viviana Lal RN Active FLEXERIL 10 MG TABS 1/2 TO 1 TABLET Q12H NEEDED CYCLOBENZAPRINE HCL 99406841525 No Longer Active Viviana Lal RN Active AMLODIPINE BESYLATE 5 MG TABS 1 1/2 daily AMLODIPINE BESYLATE 29172656455 Active Nadir Hector MD Active ONGLYZA 5 MG TABS 1 QAM SAXAGLIPTIN HCL 04966708433 No Longer Active Nadir Hector MD Active AMLODIPINE BESYLATE 5 MG TABS 1 1/2 TABLET DAILY AMLODIPINE BESYLATE 10600659570 No Longer Active Nadir Hector MD Active LORTAB 5-500 MG TABS 1 BY MOUTH Q6H NEEDED HYDROCODONE- ACETAMINOPHEN 19323630026 No Longer Active Nadir Hector MD Active ACTOS 45 MG TABS 1 QD PIOGLITAZONE HCL 71737744720 No Longer Active Nadir Hector MD Active BACTRIM DS 800-160 MG TAB 1 tab by mouth twice daily TRIMETHOPRIM-SULFAMETHOXAZOLE 64665361900 No Longer Active Nadir Hector MD Active CALCIUM + D 600-200 MG-UNIT TABS 1 TABLET TWO TIMES A DAY CALCIUM CARBONATE-VITAMIN D 85409166932 Active Ro Yang RN Active METOPROLOL SUCCINATE 25 MG [id number] 1 QAM METOPROLOL SUCCINATE 97953037099 Active Nadir Hector MD Active AMARYL 4 MG TABS 1 QD GLIMEPIRIDE 76702097126 Active Nadir Hector MD Active LOVASTATIN 40 MG TABS 1 QD LOVASTATIN 45286346952 Active Nadir Hector MD Active GLUCOPHAGE 1000 MG TABS 1 TABLET TWO TIMES A DAY METFORMIN HCL 68568906672 Active Nadir Hector MD Active MAXZIDE-25 37.5-25 MG TABS 1 QD TRIAMTERENE-HCTZ 56254319298 Active Nadir Hector MD Active ACCUPRIL 40 MG TABS 1 QD QUINAPRIL HCL 05410978626 Active Nadir Hector MD Active BACTRIM DS 800-160 MG TAB 1 tab by mouth twice daily BACTRIM DS 800-160 MG TAB TRIMETHOPRIM-SULFAMETHOXAZOLE Inactive ACTOS 45 MG TABS 1 QD ACTOS 45 MG TABS 036638 PIOGLITAZONE HCL Inactive LORTAB 5-500 MG TABS 1 BY MOUTH Q6H NEEDED LORTAB 5-500 MG TABS HYDROCODONE-ACETAMINOPHEN Inactive AMLODIPINE BESYLATE 5 MG TABS 1 1/2 TABLET DAILY AMLODIPINE BESYLATE 5 MG TABS 409680 AMLODIPINE BESYLATE Inactive ONGLYZA 5 MG TABS 1 QAM ONGLYZA 5 MG TABS SAXAGLIPTIN HCL Inactive FLEXERIL 10 MG TABS 1/2 TO 1 TABLET Q12H NEEDED FLEXERIL 10 MG TABS CYCLOBENZAPRINE HCL Inactive CIPRO 250 MG TABS TAKE ONE TABLET BY MOUTH TWICE DAILY FOR 5 DAYS CIPRO 250 MG TABS 480241 CIPROFLOXACIN HCL Inactive BACTRIM DS 800-160 MG TABS TAKE ONE TABLET BY MOUTH TWICE DAILY FOR 7 DAYS BACTRIM DS 800-160 MG TABS SULFAMETHOXAZOLE-TRIMETHOPRIM Inactive BACTRIM DS 800-160 MG TABS one tablet twice a day for seven days BACTRIM DS 800-160 MG TABS SULFAMETHOXAZOLE-TRIMETHOPRIM Inactive MACROBID 100 MG CAP 1 cap by mouth twice daily MACROBID 100 MG CAP 493967 NITROFURANTOIN MONOHYD MACRO Inactive JANUVIA 100 MG TABS Take 1 tab daily JANUVIA 100 MG TABS SITAGLIPTIN PHOSPHATE Inactive GLUCOTROL XL 5 MG [id number] one tablet daily GLUCOTROL XL 5 MG [id number] GLIPIZIDE Inactive MACRODANTIN 100 MG CAPS 1 capsule by mouth twice daily for seven days MACRODANTIN 100 MG CAPS 851109 NITROFURANTOIN MACROCRYSTAL Inactive AMOXICILLIN 500 MG CAPS 2 po BID x 10 days AMOXICILLIN 500 MG CAPS 031802 AMOXICILLIN Inactive BACTRIM DS 800-160 MG TABS 1 po BID x 7 days BACTRIM DS 800-160 MG TABS SULFAMETHOXAZOLE-TRIMETHOPRIM Inactive CIPRO 250 MG TAB 1 tablet by mouth twice daily CIPRO 250 MG TAB 366560 CIPROFLOXACIN HCL Inactive MACROBID 100 MG CAP 1 cap by mouth twice daily MACROBID 100 MG CAP 915732 NITROFURANTOIN MONOHYD MACRO Inactive BACTRIM DS TABS Take 1 po BID BACTRIM DS TABS SULFAMETHOXAZOLE-TRIMETHOPRIM TABS Inactive AMOXICILLIN 500 MG ORAL CAPS tid AMOXICILLIN 500 MG ORAL CAPS 906239 AMOXICILLIN Inactive Advance Directives Directive Description Start Date PERMISSION TO SHARE Immunizations Vaccine Administration Date Value Standard Description pneumococcal immunization administered Pneumovax 23 [CVX33] pneumococcal polysaccharide vaccine, 23 valent Seasonal influenza vaccine, injectable, containing preservative, for > 3 years old (Afluria, FluLaval, Fluzone, Fluvirin, Fluarix, Agriflu(>=18 yo)) Fluzone (>3 yrs.) [FMF180] Influenza, seasonal, injectable Vital Signs Date Name [...] HGBA1C - Chemistry sodium, serum 140 mmol/L 642-382 4317/07/23 potassium, serum 4.5 mmol/L 3.5-5.2 chloride, serum [...] 0.2 Encounters Code Encounter Date Provider Facility CPT-05548 Level 4 New Patient 14:59:23 CDT Catalino Irene MD [facility] CPT-96312 Level 3 Est. Patient 16:43:04 MATERIALS MANAGEMENT SUPERVISOR Nadir Hector MD [facility] CPT-54581 Level 4 Est. Patient 14:21:01 MATERIALS MANAGEMENT SUPERVISOR Nadir Hector MD [facility] CPT-10667 Level 3 Est. Patient 16:41:34 CDT Nadir Hector MD [facility] CPT-37452 Level 4 Est. Patient 13:54:35 MATERIALS MANAGEMENT SUPERVISOR Nadir Hector MD [facility] CPT-82714 Level 3 Est. Patient 15:51:21 CDT Nadir Hector MD [facility] CPT-14428 Level 4 New Patient 15:58:26 CDT Catalino Irene MD [facility] CPT-18265 Level 4 Est. Patient 15:42:38 MATERIALS MANAGEMENT SUPERVISOR Nadir Hector MD [facility] Procedures Code Procedure Name Date Entry Date Standard Description CPT-11477 Urine Dip (Floor Use Only) 14:59:25 CDT CPT-59352 Bladder Scan 14:59:24 CDT CPT-98681 Cystoscopy 14:59:24 CDT CPT-39806 Abd single AP View 12:13:13 CDT CPT-000 Give Pneumovax 14:21:01 MATERIALS MANAGEMENT SUPERVISOR CPT-000 Give Appropriate Flu Vaccine 14:21:01 MATERIALS MANAGEMENT SUPERVISOR CPT-22153 Bone Density 08:41:23 MATERIALS MANAGEMENT SUPERVISOR CPT-000 Give Appropriate Flu Vaccine 13:54:35 MATERIALS MANAGEMENT SUPERVISOR CPT-000 Give Pneumovax 13:54:35 MATERIALS MANAGEMENT SUPERVISOR CPT-79069 Administration 2+ single or combination vaccines inc oral 14:01:24 MATERIALS MANAGEMENT SUPERVISOR CPT-54320 Administration single or combination vaccine inc oral 14 :01:24 MATERIALS MANAGEMENT SUPERVISOR CPT-03658 Influenza High Dose age 65+ 14:01:24 MATERIALS MANAGEMENT SUPERVISOR CPT-77468 Pneumovax 14:01:24 MATERIALS MANAGEMENT SUPERVISOR CPT-56528 Venipuncture Draw Fee 10:36:48 CDT CPT-000 Give Appropriate Flu Vaccine 15:20:11 MATERIALS MANAGEMENT SUPERVISOR CPT-67852 Administration single or combination vaccine inc oral 15 :50:33 MATERIALS MANAGEMENT SUPERVISOR CPT-87129 Influenza High Dose age 65+ 15:50:33 MATERIALS MANAGEMENT SUPERVISOR CPT-60588 LS spine AP and Lat 15:30:05 MATERIALS MANAGEMENT SUPERVISOR CPT-41188 Hip comp min 2V 15:30:05 MATERIALS MANAGEMENT SUPERVISOR CPT-46248 Postop F/U Visit 17:28:18 CDT CPT-OV Office Visit 15:04:38 CDT CPT-77994 Bladder Scan 15:58:26 CDT CPT-62244 Cystoscopy 15:58:26 CDT CPT-OV Office Visit 16:15:09 CDT CPT-000 Give Appropriate Flu Vaccine 16:33:10 MATERIALS MANAGEMENT SUPERVISOR CPT-73008 Administration single or combination vaccine inc oral 19 :21:12 MATERIALS MANAGEMENT SUPERVISOR CPT-48400 Influenza split virus > age 3 19:21:12 MATERIALS MANAGEMENT SUPERVISOR
--- OUTSIDE RECORDS SUMMARY | 2017-07-23 10:00 | XMS REPORT | Clinical Summary ---
Author Author Admin, IMTIAZ Organization [facility] Address Unknown Phone Unavailable Allergies, Adverse [...] Acute sinusitis, unspecified Menopause, surgical 627.4 Active [facility] Symptomatic states associated with artificial menopause [...] TAB 1 tablet by mouth daily FLUCONAZOLE 34459785098 No Longer Active Nadir Hector MD Active BACTRIM DS 800-160 MG ORAL TABS 1 BID for 5 days SULFAMETHOXAZOLE-TRIMETHOPRIM 49277831959 No Longer Active Nadir Hector MD Active CIPRO 250 MG TAB 1 tablet by mouth twice daily CIPROFLOXACIN HCL 27544719040 No Longer Active Ro Meyer Active AMOXICILLIN 500 MG ORAL CAPS tid AMOXICILLIN 45196573007 No Longer Active Catalino Irene MD Active BACTRIM DS TABS Take 1 po BID SULFAMETHOXAZOLE- TRIMETHOPRIM TABS 38857582528 No Longer Active Pam Gomez LPN Active MACROBID 100 MG CAP 1 cap by mouth twice daily NITROFURANTOIN MONOHYD MACRO 66051943451 No Longer Active Pam Gomez LPN Active CIPRO 250 MG TAB 1 tablet by mouth twice daily CIPROFLOXACIN HCL 38155629766 No Longer Active Pam Gomez LPN Active JANUVIA 100 MG ORAL TABS 1 daily SITAGLIPTIN PHOSPHATE 57080090894 Active Nadir Hector MD Active GLUCOTROL XL 5 MG [id number] one tablet daily GLIPIZIDE 21134449916 No Longer Active Nadir Hector MD Active BACTRIM DS 800-160 MG TABS 1 po BID x 7 days SULFAMETHOXAZOLE-TRIMETHOPRIM 32789524023 No Longer Active Jamal Burrell MD Active FOSAMAX 70 MG TABS 1 po qweek. Take 30min prior to first food/drink. Avoid lying down x 1 hour. ALENDRONATE SODIUM 72171881556 Active Nadir Hector MD Active AMOXICILLIN 500 MG CAPS 2 po BID x 10 days AMOXICILLIN 40472448371 No Longer Active Nadir Hector MD Active JANUVIA 100 MG TABS 1 tablet by mouth daily SITAGLIPTIN PHOSPHATE 62382534084 No Longer Active Nadir Hector MD Active JANUVIA 100 MG TABS Take 1 tab daily SITAGLIPTIN PHOSPHATE 87052183143 No Longer Active Sharon Nuñez Active MACROBID 100 MG CAP 1 cap by mouth twice daily NITROFURANTOIN MONOHYD MACRO 67043101400 No Longer Active Crystal Fernández APRN Active MACRODANTIN 100 MG CAPS 1 capsule by mouth twice daily for seven days NITROFURANTOIN MACROCRYSTAL 29956546737 No Longer Active Ro Trey RN Active BACTRIM DS 800-160 MG TABS one tablet twice a day for seven days SULFAMETHOXAZOLE-TRIMETHOPRIM 67802866675 No Longer Active HEMANTH Griffin Active BACTRIM DS 800-160 MG TABS TAKE ONE TABLET BY MOUTH TWICE DAILY FOR 7 DAYS SULFAMETHOXAZOLE-TRIMETHOPRIM 98351357718 No Longer Active Viviana Lal RN Active CIPRO 250 MG TABS TAKE ONE TABLET BY MOUTH TWICE DAILY FOR 5 DAYS CIPROFLOXACIN HCL 19378679438 No Longer Active Viviana Lal RN Active FLEXERIL 10 MG TABS 1/2 TO 1 TABLET Q12H NEEDED CYCLOBENZAPRINE HCL 21686574355 No Longer Active Viviana Lal RN Active AMLODIPINE BESYLATE 5 MG TABS 1 1/2 daily AMLODIPINE BESYLATE 52776976524 Active Nadir Hector MD Active ONGLYZA 5 MG TABS 1 QAM SAXAGLIPTIN HCL 18293314150 No Longer Active Nadir Hector MD Active AMLODIPINE BESYLATE 5 MG TABS 1 1/2 TABLET DAILY AMLODIPINE BESYLATE 71307759378 No Longer Active Nadir Hector MD Active LORTAB 5-500 MG TABS 1 BY MOUTH Q6H NEEDED HYDROCODONE- ACETAMINOPHEN 77493212126 No Longer Active Nadir Hector MD Active ACTOS 45 MG TABS 1 QD PIOGLITAZONE HCL 52514629452 No Longer Active Nadir Hector MD Active BACTRIM DS 800-160 MG TAB 1 tab by mouth twice daily TRIMETHOPRIM-SULFAMETHOXAZOLE 16962442045 No Longer Active Nadir Hector MD Active CALCIUM + D 600-200 MG-UNIT TABS 1 TABLET TWO TIMES A DAY CALCIUM CARBONATE-VITAMIN D 51287873566 Active Ro Yang RN Active METOPROLOL SUCCINATE 25 MG [id number] 1 QAM METOPROLOL SUCCINATE 86865407187 Active Nadir Hector MD Active AMARYL 4 MG TABS 1 QD GLIMEPIRIDE 94784584253 Active Nadir Hector MD Active LOVASTATIN 40 MG TABS 1 QD LOVASTATIN 61709909717 Active Nadir Hector MD Active GLUCOPHAGE 1000 MG TABS 1 TABLET TWO TIMES A DAY METFORMIN HCL 76376751574 Active Nadir Hector MD Active MAXZIDE-25 37.5-25 MG TABS 1 QD TRIAMTERENE-HCTZ 80989457211 Active Nadir Hector MD Active ACCUPRIL 40 MG TABS 1 QD QUINAPRIL HCL 52377856100 Active Nadir Hector MD Active BACTRIM DS 800-160 MG TAB 1 tab by mouth twice daily BACTRIM DS 800-160 MG TAB TRIMETHOPRIM-SULFAMETHOXAZOLE Inactive ACTOS 45 MG TABS 1 QD ACTOS 45 MG TABS 236720 PIOGLITAZONE HCL Inactive LORTAB 5-500 MG TABS 1 BY MOUTH Q6H NEEDED LORTAB 5-500 MG TABS HYDROCODONE-ACETAMINOPHEN Inactive AMLODIPINE BESYLATE 5 MG TABS 1 1/2 TABLET DAILY AMLODIPINE BESYLATE 5 MG TABS 666675 AMLODIPINE BESYLATE Inactive ONGLYZA 5 MG TABS 1 QAM ONGLYZA 5 MG TABS SAXAGLIPTIN HCL Inactive FLEXERIL 10 MG TABS 1/2 TO 1 TABLET Q12H NEEDED FLEXERIL 10 MG TABS CYCLOBENZAPRINE HCL Inactive CIPRO 250 MG TABS TAKE ONE TABLET BY MOUTH TWICE DAILY FOR 5 DAYS CIPRO 250 MG TABS 753603 CIPROFLOXACIN HCL Inactive BACTRIM DS 800-160 MG TABS TAKE ONE TABLET BY MOUTH TWICE DAILY FOR 7 DAYS BACTRIM DS 800-160 MG TABS SULFAMETHOXAZOLE-TRIMETHOPRIM Inactive BACTRIM DS 800-160 MG TABS one tablet twice a day for seven days BACTRIM DS 800-160 MG TABS SULFAMETHOXAZOLE-TRIMETHOPRIM Inactive MACROBID 100 MG CAP 1 cap by mouth twice daily MACROBID 100 MG CAP 6273552 NITROFURANTOIN MONOHYD MACRO Inactive JANUVIA 100 MG TABS Take 1 tab daily JANUVIA 100 MG TABS SITAGLIPTIN PHOSPHATE Inactive GLUCOTROL XL 5 MG [id number] one tablet daily GLUCOTROL XL 5 MG [id number] GLIPIZIDE Inactive BACTRIM DS 800-160 MG ORAL TABS 1 BID for 5 days BACTRIM DS 800-160 MG ORAL TABS SULFAMETHOXAZOLE-TRIMETHOPRIM Inactive DIFLUCAN 150 MG TAB 1 tablet by mouth daily DIFLUCAN 150 MG TAB 405705 FLUCONAZOLE Inactive MACRODANTIN 100 MG CAPS 1 capsule by mouth twice daily for seven days MACRODANTIN 100 MG CAPS 6166310 NITROFURANTOIN MACROCRYSTAL Inactive AMOXICILLIN 500 MG CAPS 2 po BID x 10 days AMOXICILLIN 500 MG CAPS 780860 AMOXICILLIN Inactive BACTRIM DS 800-160 MG TABS 1 po BID x 7 days BACTRIM DS 800-160 MG TABS SULFAMETHOXAZOLE-TRIMETHOPRIM Inactive CIPRO 250 MG TAB 1 tablet by mouth twice daily CIPRO 250 MG TAB 889151 CIPROFLOXACIN HCL Inactive MACROBID 100 MG CAP 1 cap by mouth twice daily MACROBID 100 MG CAP 7437354 NITROFURANTOIN MONOHYD MACRO Inactive BACTRIM DS TABS Take 1 po BID BACTRIM DS TABS SULFAMETHOXAZOLE-TRIMETHOPRIM TABS Inactive AMOXICILLIN 500 MG ORAL CAPS tid AMOXICILLIN 500 MG ORAL CAPS 672387 AMOXICILLIN Inactive CIPRO 250 MG TAB 1 tablet by mouth twice daily CIPRO 250 MG TAB 410172 CIPROFLOXACIN HCL Inactive Advance Directives Directive Description Start Date PERMISSION TO SHARE Immunizations Vaccine Administration Date Value Standard Description pneumococcal immunization administered Pneumovax 23 [CVX33] pneumococcal polysaccharide vaccine, 23 valent Seasonal influenza vaccine, injectable, containing preservative, for > 3 years old (Afluria, FluLaval, Fluzone, Fluvirin, Fluarix, Agriflu(>=18 yo)) Fluzone (>3 yrs.) [FKF826] Influenza, seasonal, injectable Vital Signs Date Name [...] Panel - Chemistry sodium, serum 138 mmol/L 291-397 2245/07/02 potassium, serum 4.5 mmol/L 3.5-5.2 chloride, serum [...] total hemoglobin 7.0 % 4.3-6.0 Lab Report: Lipid Panel, Comp. Metabolic Panel, HGBA1C - Chemistry cholesterol, serum 147 mg/dL 984-113 5183/08/18 triglyceride, serum, fasting 242 mg/dL 30-200 HDL cholesterol, serum 36 mg/dL 32-96 LDL cholesterol, serum 63 mg/dL 0-130 sodium, serum 137 mmol/L 626-366 9674/08/18 potassium, serum 4.7 mmol/L 3.5-5.2 chloride, serum [...] glucose, urine, semiquantitative Negative Negative urine color Straw Colorless;Lightyellow;Straw;Yellow ketones, urine, by test strip Negative Negative bilirubin, urine Negative Negative appearance, urine Cloudy Clear specific gravity, urine 1.025 1.000-1.030 pH, urine, semiquantitative 6.0 5.0-8.5 Lab Report: UADIP W/MICRO, AUTO - Chemistry RBC, urine, dipstick 2+ Negative protein, total urine random 2+ mg/dL Negative protein, total urine random 2+ mg/dL Negative protein, total urine random 1+ mg/dL Negative RBC, urine, dipstick 3+ Negative RBC, urine, dipstick 1+ Negative RBC, urine, dipstick 1+ Negative protein, total urine random Trace mg/dL Negative protein, total urine random 2+ mg/dL Negative RBC, urine, dipstick 3+ Negative RBC, urine, dipstick 3+ Negative protein, total urine random 3+ mg/dL Negative protein, total urine random 2+ mg/dL Negative RBC, urine, dipstick 2+ Negative Lab Report: UADIP W/MICRO, AUTO - [...] 3+ Negative nitrite, urine, semiquantitative Negative Negative specific gravity, urine 1.025 1.000-1.030 appearance, urine Clear Clear urine color Yellow Colorless;Lightyellow;Straw;Yellow urine color Yellow Colorless;Lightyellow;Straw;Yellow urobilinogen, urine, semiquantitative (dipstick) 0.2 Normal leukocyte esterase, urine, by dipstick 2+ Negative nitrite, urine, semiquantitative Negative Negative pH, [...] Negative bilirubin, urine Negative Negative appearance, urine SlCloudy Clear specific gravity, urine 1.025 1.000-1.030 pH, urine, semiquantitative 5.5 5.0-8.5 glucose, urine, semiquantitative Negative Negative ketones, [...] 1+ Negative nitrite, urine, semiquantitative Negative Negative Office Visit: CN recurrent UTI [...] 0.2 Encounters Code Encounter Date Provider Facility CPT-89823 Level 2 Est. Patient 07:03:19 CDT Catalino Irene MD [facility] CPT-84265 Level 4 Est. Patient 09:54:20 CDT Nadir Hector MD [facility] CPT-79252 Level 2 Est. Patient 18:56:33 CDT Catalino Irene MD [facility] CPT-10780 Level 4 New Patient 14:59:23 CDT Catalino Irene MD [facility] CPT-44712 Level 3 Est. Patient 16:43:04 REAMING PRESS OPERATOR Nadir Hector MD [facility] CPT-07754 Level 4 Est. Patient 14:21:01 REAMING PRESS OPERATOR Nadir Hector MD [facility] CPT-83744 Level 3 Est. Patient 16:41:34 CDT Nadir Hector MD [facility] CPT-70275 Level 4 Est. Patient 13:54:35 REAMING PRESS OPERATOR Nadir Hector MD [facility] CPT-71184 Level 3 Est. Patient 15:51:21 CDT Nadir Hector MD [facility] CPT-84784 Level 4 New Patient 15:58:26 CDT Catalino Irene MD [facility] CPT-99712 Level 4 Est. Patient 15:42:38 REAMING PRESS OPERATOR Nadir Hector MD [facility] Procedures Code Procedure Name Date Entry Date Standard Description CPT-91309 Urine Dip (Floor Use Only) 18:56:34 CDT CPT-20926 Urine Dip (Floor Use Only) 14:21:22 CDT CPT-J0561 Bicillin LA 1,200,000 u (PCN G Benzathine) 13:16:19 CDT CPT-86445 Abx/Therapy Injection 13:16:19 CDT CPT-11281 Urine Dip (Floor Use Only) 14:59:25 CDT CPT-09487 Bladder Scan 14:59:24 CDT CPT-80714 Cystoscopy 14:59:24 CDT CPT-98439 Abd single AP View 12:13:13 CDT CPT-000 Give Pneumovax 14:21:01 REAMING PRESS OPERATOR CPT-000 Give Appropriate Flu Vaccine 14:21:01 REAMING PRESS OPERATOR CPT-15465 Bone Density 08:41:23 REAMING PRESS OPERATOR CPT-000 Give Appropriate Flu Vaccine 13:54:35 REAMING PRESS OPERATOR CPT-000 Give Pneumovax 13:54:35 REAMING PRESS OPERATOR CPT-74715 Administration 2+ single or combination vaccines inc oral 14:01:24 REAMING PRESS OPERATOR CPT-50427 Administration single or combination vaccine inc oral 14 :01:24 REAMING PRESS OPERATOR CPT-77792 Influenza High Dose age 65+ 14:01:24 REAMING PRESS OPERATOR CPT-01351 Pneumovax 14:01:24 REAMING PRESS OPERATOR CPT-86090 Venipuncture Draw Fee 10:36:48 CDT CPT-000 Give Appropriate Flu Vaccine 15:20:11 REAMING PRESS OPERATOR CPT-01696 Administration single or combination vaccine inc oral 15 :50:33 REAMING PRESS OPERATOR CPT-64708 Influenza High Dose age 65+ 15:50:33 REAMING PRESS OPERATOR CPT-32641 LS spine AP and Lat 15:30:05 REAMING PRESS OPERATOR CPT-81888 Hip comp min 2V 15:30:05 REAMING PRESS OPERATOR CPT-71864 Postop F/U Visit 17:28:18 CDT CPT-OV Office Visit 15:04:38 CDT CPT-04171 Bladder Scan 15:58:26 CDT CPT-56703 Cystoscopy 15:58:26 CDT CPT-OV Office Visit 16:15:09 CDT CPT-000 Give Appropriate Flu Vaccine 16:33:10 REAMING PRESS OPERATOR CPT-40674 Administration single or combination vaccine inc oral 19 :21:12 REAMING PRESS OPERATOR CPT-66050 Influenza split virus > age 3 19:21:12 REAMING PRESS OPERATOR
--- OUTSIDE RECORDS SUMMARY | 2017-07-23 10:00 | XMS REPORT | Clinical Summary ---
Author Author Admin, IMTIAZ Organization [facility] Address Unknown Phone Unavailable Allergies, Adverse [...] Routine general medical examination at a [facility] care facility PERIPHERAL NEUROPATHY 356.9 [...] pelvic region and thigh OSTEOARTHRITIS 715.90 Active Ndair Hector MD Osteoarthrosis, unspecified whether generalized or [...] by mouth twice daily NITROFURANTOIN MONOHYD MACRO 34709309655 Active Pam Gomez BACTERIOLOGIST SOIL Active DIFLUCAN 150 MG TAB 1 tablet by mouth daily FLUCONAZOLE 02244028879 Active Pam Gomez LPN Active CIPRO 250 MG TAB 1 tablet by mouth twice daily CIPROFLOXACIN HCL 74725413432 No Longer Active Pam Gomez LPN Active JANUVIA 100 MG ORAL TABS 1 daily SITAGLIPTIN PHOSPHATE 79820241555 Active Nadir Hector MD Active GLUCOTROL XL 5 MG [id number] one tablet daily GLIPIZIDE 87336554283 No Longer Active Nadir Hector MD Active BACTRIM DS 800-160 MG TABS 1 po BID x 7 days SULFAMETHOXAZOLE-TRIMETHOPRIM 26183631709 No Longer Active Jamal Burrell MD Active FOSAMAX 70 MG TABS 1 po qweek. Take 30min prior to first food/drink. Avoid lying down x 1 hour. ALENDRONATE SODIUM 42801938547 Active Nadir Hector MD Active AMOXICILLIN 500 MG CAPS 2 po BID x 10 days AMOXICILLIN 78242662568 No Longer Active Nadir Hector MD Active JANUVIA 100 MG TABS 1 tablet by mouth daily SITAGLIPTIN PHOSPHATE 15231357013 No Longer Active Nadir Hector MD Active JANUVIA 100 MG TABS Take 1 tab daily SITAGLIPTIN PHOSPHATE 42478121635 No Longer Active Sharon Nuñez Active MACROBID 100 MG CAP 1 cap by mouth twice daily NITROFURANTOIN MONOHYD MACRO 56457026665 No Longer Active Crystal Fernández APRN Active MACRODANTIN 100 MG CAPS 1 capsule by mouth twice daily for seven days NITROFURANTOIN MACROCRYSTAL 69871695720 No Longer Active Ro Yang RN Active BACTRIM DS 800-160 MG TABS one tablet twice a day for seven days SULFAMETHOXAZOLE-TRIMETHOPRIM 17647314990 No Longer Active HEMANTH Griffin Active BACTRIM DS 800-160 MG TABS TAKE ONE TABLET BY MOUTH TWICE DAILY FOR 7 DAYS SULFAMETHOXAZOLE-TRIMETHOPRIM 34553913360 No Longer Active Viviana Lal RN Active CIPRO 250 MG TABS TAKE ONE TABLET BY MOUTH TWICE DAILY FOR 5 DAYS CIPROFLOXACIN HCL 40739666089 No Longer Active Viviana Lal RN Active FLEXERIL 10 MG TABS 1/2 TO 1 TABLET Q12H NEEDED CYCLOBENZAPRINE HCL 77052079223 No Longer Active Viviana Lal RN Active AMLODIPINE BESYLATE 5 MG TABS 1 1/2 daily AMLODIPINE BESYLATE 96062249924 Active Nadir Hector MD Active ONGLYZA 5 MG TABS 1 QAM SAXAGLIPTIN HCL 10623377160 No Longer Active Nadir Hector MD Active AMLODIPINE BESYLATE 5 MG TABS 1 1/2 TABLET DAILY AMLODIPINE BESYLATE 97464280965 No Longer Active Nadir Hector MD Active LORTAB 5-500 MG TABS 1 BY MOUTH Q6H NEEDED HYDROCODONE- ACETAMINOPHEN 34975331025 No Longer Active Nadir Hector MD Active ACTOS 45 MG TABS 1 QD PIOGLITAZONE HCL 29958203923 No Longer Active Nadir Hector MD Active BACTRIM DS 800-160 MG TAB 1 tab by mouth twice daily TRIMETHOPRIM-SULFAMETHOXAZOLE 46985263423 No Longer Active Nadir Hector MD Active CALCIUM + D 600-200 MG-UNIT TABS 1 TABLET TWO TIMES A DAY CALCIUM CARBONATE-VITAMIN D 42640428986 Active Ro Yang RN Active METOPROLOL SUCCINATE 25 MG [id number] 1 QAM METOPROLOL SUCCINATE 92671192293 Active Nadir Hector MD Active AMARYL 4 MG TABS 1 QD GLIMEPIRIDE 07515023052 Active Nadir Hector MD Active LOVASTATIN 40 MG TABS 1 QD LOVASTATIN 77021787244 Active Nadir Hector MD Active GLUCOPHAGE 1000 MG TABS 1 TABLET TWO TIMES A DAY METFORMIN HCL 35257145315 Active Nadir Hector MD Active MAXZIDE-25 37.5-25 MG TABS 1 QD TRIAMTERENE-HCTZ 13830743366 Active Nadir Hector MD Active ACCUPRIL 40 MG TABS 1 QD QUINAPRIL HCL 62810174037 Active Nadir Hector MD Active BACTRIM DS 800-160 MG TAB 1 tab by mouth twice daily BACTRIM DS 800-160 MG TAB TRIMETHOPRIM-SULFAMETHOXAZOLE Inactive ACTOS 45 MG TABS 1 QD ACTOS 45 MG TABS 988703 PIOGLITAZONE HCL Inactive LORTAB 5-500 MG TABS 1 BY MOUTH Q6H NEEDED LORTAB 5-500 MG TABS HYDROCODONE-ACETAMINOPHEN Inactive AMLODIPINE BESYLATE 5 MG TABS 1 1/2 TABLET DAILY AMLODIPINE BESYLATE 5 MG TABS 718305 AMLODIPINE BESYLATE Inactive ONGLYZA 5 MG TABS [...] mouth twice daily MACROBID 100 MG CAP 238129 NITROFURANTOIN MONOHYD MACRO Inactive JANUVIA 100 MG TABS Take 1 tab daily JANUVIA 100 MG TABS SITAGLIPTIN PHOSPHATE Inactive GLUCOTROL XL 5 MG [id number] one tablet daily GLUCOTROL XL 5 MG [id number] GLIPIZIDE Inactive MACRODANTIN 100 MG CAPS 1 capsule by mouth twice daily for seven days MACRODANTIN 100 MG CAPS 095806 NITROFURANTOIN MACROCRYSTAL Inactive AMOXICILLIN 500 MG CAPS 2 po BID x 10 days AMOXICILLIN 500 MG CAPS 453268 AMOXICILLIN Inactive BACTRIM DS 800-160 MG TABS [...] Fluvirin, Fluarix, Agriflu(>=18 yo)) Fluzone (>3 yrs.) [[id number]] Influenza, seasonal, injectable Vital Signs Date Name [...] HGBA1C - Chemistry sodium, serum 140 mmol/L 266-982 8351/07/23 potassium, serum 4.5 mmol/L 3.5-5.2 chloride, serum [...] 5.0-8.5 Encounters Code Encounter Date Provider Facility CPT-87939 Level 3 Est. 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 Patient 14:21:01 LIMOUSINE RENTAL CLERK Nadir Hector MD [facility] CPT-11963 Level 3 Est. Patient 16:41:34 CDT Nadir Hector MD [facility] CPT-27355 Level 4 Est. Patient 13:54:35 LIMOUSINE RENTAL CLERK Nadir Hector MD [facility] CPT-17969 Level 3 Est. Patient 15:51:21 CDT Nadir Hector MD [facility] CPT-52978 Level 4 New Patient 15:58:26 CDT Catalino Irene MD [facility] CPT-18958 Level 4 Est. Patient 15:42:38 LIMOUSINE RENTAL CLERK Nadir Hector MD [facility] Procedures Code Procedure Name Date Entry Date Standard Description CPT-000 Give Pneumovax 14:21:01 LIMOUSINE RENTAL CLERK CPT-000 Give Appropriate Flu Vaccine 14:21:01 LIMOUSINE RENTAL CLERK CPT-82797 Bone Density 08:41:23 LIMOUSINE RENTAL CLERK CPT-000 Give Appropriate Flu Vaccine 13:54:35 LIMOUSINE RENTAL CLERK CPT-000 Give Pneumovax 13:54:35 LIMOUSINE RENTAL CLERK CPT-77711 Administration 2+ single or combination vaccines inc oral 14:01:24 LIMOUSINE RENTAL CLERK CPT-17760 Administration single or combination vaccine inc oral 14 :01:24 LIMOUSINE RENTAL CLERK CPT-90043 Influenza High Dose age 65+ 14:01:24 LIMOUSINE RENTAL CLERK CPT-51816 Pneumovax 14:01:24 LIMOUSINE RENTAL CLERK CPT-57135 Venipuncture Draw Fee 10:36:48 CDT CPT-000 Give Appropriate Flu Vaccine 15:20:11 LIMOUSINE RENTAL CLERK CPT-81911 Administration single or combination vaccine inc oral 15 :50:33 LIMOUSINE RENTAL CLERK CPT-00375 Influenza High Dose age 65+ 15:50:33 LIMOUSINE RENTAL CLERK CPT-66130 LS spine AP and Lat 15:30:05 LIMOUSINE RENTAL CLERK CPT-45173 Hip comp min 2V 15:30:05 LIMOUSINE RENTAL CLERK CPT-89234 Postop F/U Visit 17:28:18 CDT CPT-OV Office Visit 15:04:38 CDT CPT-83243 Bladder Scan 15:58:26 CDT CPT-34582 Cystoscopy 15:58:26 CDT CPT-OV Office Visit 16:15:09 CDT CPT-000 Give Appropriate Flu Vaccine 16:33:10 LIMOUSINE RENTAL CLERK CPT-60528 Administration single or combination vaccine inc oral 19 :21:12 LIMOUSINE RENTAL CLERK CPT-23478 Influenza split virus > age 3 19:21:12 LIMOUSINE RENTAL CLERK
--- OUTSIDE RECORDS SUMMARY | 2017-07-23 10:01 | XMS REPORT | Clinical Summary ---
Author Author Admin, IMTIAZ Organization [facility] Address Unknown Phone Unavailable Allergies, Adverse [...] MD Routine general medical examination at a [facility] care facility PERIPHERAL NEUROPATHY [...] specified Incomplete Bladder Emptying 788.21 Active Catalino Irnee MD Incomplete bladder emptying Medication List Medication Instructions Start Date Stop Date Generic Name NDC Status Provider Patient Instruction AMOXICILLIN 500 MG ORAL CAPS tid AMOXICILLIN 93807932196 Active Catalino Irene MD Active BACTRIM DS TABS Take 1 po BID SULFAMETHOXAZOLE- TRIMETHOPRIM TABS 71268522069 No Longer Active Pam Gomez ROBOTIC TECHNICIAN Active MACROBID 100 MG CAP 1 cap by mouth twice daily NITROFURANTOIN MONOHYD MACRO 99445546939 No Longer Active Pam Gomez ROBOTIC TECHNICIAN Active DIFLUCAN 150 MG TAB 1 tablet by mouth daily FLUCONAZOLE 74334960034 Active Pam Gomez ROBOTIC TECHNICIAN Active CIPRO 250 MG TAB 1 tablet by mouth twice daily CIPROFLOXACIN HCL 17930756010 No Longer Active Pam Gomez LPN Active JANUVIA 100 MG ORAL TABS 1 daily SITAGLIPTIN PHOSPHATE 05189161845 Active Nadir Hector MD Active GLUCOTROL XL 5 MG [id number] one tablet daily GLIPIZIDE 43172040110 No Longer Active Nadir Hector MD Active BACTRIM DS 800-160 MG TABS 1 po BID x 7 days SULFAMETHOXAZOLE-TRIMETHOPRIM 70918214472 No Longer Active Jamal Burrell MD Active FOSAMAX 70 MG TABS 1 po qweek. Take 30min prior to first food/drink. Avoid lying down x 1 hour. ALENDRONATE SODIUM 76910585225 Active Nadir Hector MD Active AMOXICILLIN 500 MG CAPS 2 po BID x 10 days AMOXICILLIN 04089060962 No Longer Active Nadir Hector MD Active JANUVIA 100 MG TABS 1 tablet by mouth daily SITAGLIPTIN PHOSPHATE 68231115797 No Longer Active Nadir Hector MD Active JANUVIA 100 MG TABS Take 1 tab daily SITAGLIPTIN PHOSPHATE 53747454489 No Longer Active Sharon Nuñez Active MACROBID 100 MG CAP 1 cap by mouth twice daily NITROFURANTOIN MONOHYD MACRO 19023737443 No Longer Active Crystal Fernández APRN Active MACRODANTIN 100 MG CAPS 1 capsule by mouth twice daily for seven days NITROFURANTOIN MACROCRYSTAL 06955545408 No Longer Active Ro Yang RN Active BACTRIM DS 800-160 MG TABS one tablet twice a day for seven days SULFAMETHOXAZOLE-TRIMETHOPRIM 11016433068 No Longer Active HEMANTH Griffin Active BACTRIM DS 800-160 MG TABS TAKE ONE TABLET BY MOUTH TWICE DAILY FOR 7 DAYS SULFAMETHOXAZOLE-TRIMETHOPRIM 02115494756 No Longer Active Viviana Lal RN Active CIPRO 250 MG TABS TAKE ONE TABLET BY MOUTH TWICE DAILY FOR 5 DAYS CIPROFLOXACIN HCL 78318303899 No Longer Active Viviana Lal RN Active FLEXERIL 10 MG TABS 1/2 TO 1 TABLET Q12H NEEDED CYCLOBENZAPRINE HCL 81844348599 No Longer Active [place] Lukasz RN Active AMLODIPINE BESYLATE 5 MG TABS 1 1/2 daily AMLODIPINE BESYLATE 68911664221 Active Nadir Hector MD Active ONGLYZA 5 MG TABS 1 QAM SAXAGLIPTIN HCL 66253578720 No Longer Active Nadir Hector MD Active AMLODIPINE BESYLATE 5 MG TABS 1 1/2 TABLET DAILY AMLODIPINE BESYLATE 74131037455 No Longer Active Nadir Hector MD Active LORTAB 5-500 MG TABS 1 BY MOUTH Q6H NEEDED HYDROCODONE- ACETAMINOPHEN 55578988438 No Longer Active Nadir Hector MD Active ACTOS 45 MG TABS 1 QD PIOGLITAZONE HCL 53294739409 No Longer Active Nadir Hector MD Active BACTRIM DS 800-160 MG TAB 1 tab by mouth twice daily TRIMETHOPRIM-SULFAMETHOXAZOLE 47428815921 No Longer Active Nadir Hector MD Active CALCIUM + D 600-200 MG-UNIT TABS 1 TABLET TWO TIMES A DAY CALCIUM CARBONATE-VITAMIN D 45848802912 Active Ro Trey RN Active METOPROLOL SUCCINATE 25 MG [id number] 1 QAM METOPROLOL SUCCINATE 92372723510 Active Nadir Hector MD Active AMARYL 4 MG TABS 1 QD GLIMEPIRIDE 52159289334 Active Nadir Hector MD Active LOVASTATIN 40 MG TABS 1 QD LOVASTATIN 79341449661 Active Nadir Hector MD Active GLUCOPHAGE 1000 MG TABS 1 TABLET TWO TIMES A DAY METFORMIN HCL 06744229207 Active Nadir Hector MD Active MAXZIDE-25 37.5-25 MG TABS 1 QD TRIAMTERENE-HCTZ 24348319999 Active Nadir Hector MD Active ACCUPRIL 40 MG TABS 1 QD QUINAPRIL HCL 55469364528 Active Nadir Hector MD Active BACTRIM DS 800-160 MG TAB 1 tab by mouth twice daily BACTRIM DS 800-160 MG TAB TRIMETHOPRIM-SULFAMETHOXAZOLE Inactive ACTOS 45 MG TABS 1 QD ACTOS 45 MG TABS 758641 PIOGLITAZONE HCL Inactive LORTAB 5-500 MG TABS 1 BY MOUTH Q6H NEEDED LORTAB 5-500 MG TABS HYDROCODONE-ACETAMINOPHEN Inactive AMLODIPINE BESYLATE 5 MG TABS 1 1/2 TABLET DAILY AMLODIPINE BESYLATE 5 MG TABS 845121 AMLODIPINE BESYLATE Inactive ONGLYZA 5 MG TABS 1 QAM ONGLYZA 5 MG TABS SAXAGLIPTIN HCL Inactive FLEXERIL 10 MG TABS 1/2 TO 1 TABLET Q12H NEEDED FLEXERIL 10 MG TABS CYCLOBENZAPRINE HCL Inactive CIPRO 250 MG TABS TAKE ONE TABLET BY MOUTH TWICE DAILY FOR 5 DAYS CIPRO 250 MG TABS 830624 CIPROFLOXACIN HCL Inactive BACTRIM DS 800-160 MG TABS TAKE ONE TABLET BY MOUTH TWICE DAILY FOR 7 DAYS BACTRIM DS 800-160 MG TABS SULFAMETHOXAZOLE-TRIMETHOPRIM Inactive BACTRIM DS 800-160 MG TABS one tablet twice a day for seven days BACTRIM DS 800-160 MG TABS SULFAMETHOXAZOLE-TRIMETHOPRIM Inactive MACROBID 100 MG CAP 1 cap by mouth twice daily MACROBID 100 MG CAP 250058 NITROFURANTOIN MONOHYD MACRO Inactive JANUVIA 100 MG TABS Take 1 tab daily JANUVIA 100 MG TABS SITAGLIPTIN PHOSPHATE Inactive GLUCOTROL XL 5 MG [id number] one tablet daily GLUCOTROL XL 5 MG [id number]-LBU GLIPIZIDE Inactive MACRODANTIN 100 MG CAPS 1 capsule by mouth twice daily for seven days MACRODANTIN 100 MG CAPS 109218 NITROFURANTOIN MACROCRYSTAL Inactive AMOXICILLIN 500 MG CAPS 2 po BID x 10 days AMOXICILLIN 500 MG CAPS 749868 AMOXICILLIN Inactive BACTRIM DS 800-160 MG TABS 1 po BID x 7 days BACTRIM DS 800-160 MG TABS SULFAMETHOXAZOLE-TRIMETHOPRIM Inactive CIPRO 250 MG TAB 1 tablet by mouth twice daily CIPRO 250 MG TAB 621877 CIPROFLOXACIN HCL Inactive MACROBID 100 MG CAP 1 cap by mouth twice daily MACROBID 100 MG CAP 626018 NITROFURANTOIN MONOHYD MACRO Inactive BACTRIM DS TABS [...] Fluvirin, Fluarix, Agriflu(>=18 yo)) Fluzone (>3 yrs.) [[id number]] Influenza, seasonal, injectable Vital Signs Date Name [...] HGBA1C - Chemistry sodium, serum 140 mmol/L 988-729 1177/07/23 potassium, serum 4.5 mmol/L 3.5-5.2 chloride, serum [...] 0.2 Encounters Code Encounter Date Provider Facility CPT-61013 Level 4 New Patient 14:59:23 CDT Catalino Irene MD [facility] CPT-89222 Level 3 Est. Patient 16:43:04 CORE SETTER Nadir Hector MD [facility] CPT-23250 Level 4 Est. Patient 14:21:01 CORE SETTER Nadir Hector MD [facility] CPT-38222 Level 3 Est. Patient 16:41:34 CDT Nadir Hector MD [facility] CPT-83714 Level 4 Est. Patient 13:54:35 CORE SETTER Nadir Hector MD [facility] CPT-87266 Level 3 Est. Patient 15:51:21 CDT Nadir Hector MD [facility] CPT-78395 Level 4 New Patient 15:58:26 CDT Catalino Irene MD [facility] CPT-12171 Level 4 Est. Patient 15:42:38 CORE SETTER Nadir Hector MD [facility] Procedures Code Procedure Name Date Entry Date Standard Description CPT-90479 Urine Dip (Floor Use Only) 14:59:25 CDT CPT-94702 Bladder Scan 14:59:24 CDT CPT-51593 Cystoscopy 14:59:24 CDT CPT-74508 Abd single AP View 12:13:13 CDT CPT-000 Give Pneumovax 14:21:01 CORE SETTER CPT-000 Give Appropriate Flu Vaccine 14:21:01 CORE SETTER CPT-77492 Bone Density 08:41:23 CORE SETTER CPT-000 Give Appropriate Flu Vaccine 13:54:35 CORE SETTER CPT-000 Give Pneumovax 13:54:35 CORE SETTER CPT-92499 Administration 2+ single or combination vaccines inc oral 14:01:24 CORE SETTER CPT-30501 Administration single or combination vaccine inc oral 14 :01:24 CORE SETTER CPT-38743 Influenza High Dose age 65+ 14:01:24 CORE SETTER CPT-12335 Pneumovax 14:01:24 CORE SETTER CPT-66047 Venipuncture Draw Fee 10:36:48 CDT CPT-000 Give Appropriate Flu Vaccine 15:20:11 CORE SETTER CPT-19972 Administration single or combination vaccine inc oral 15 :50:33 CORE SETTER CPT-04809 Influenza High Dose age 65+ 15:50:33 CORE SETTER CPT-32943 LS spine AP and Lat 15:30:05 CORE SETTER CPT-57702 Hip comp min 2V 15:30:05 CORE SETTER CPT-45663 Postop F/U Visit 17:28:18 CDT CPT-OV Office Visit 15:04:38 CDT CPT-14124 Bladder Scan 15:58:26 CDT CPT-65846 Cystoscopy 15:58:26 CDT CPT-OV Office Visit 16:15:09 CDT CPT-000 Give Appropriate Flu Vaccine 16:33:10 CORE SETTER CPT-61294 Administration single or combination vaccine inc oral 19 :21:12 CORE SETTER CPT-63817 Influenza split virus > age 3 19:21:12 CORE SETTER
--- OUTSIDE RECORDS SUMMARY | 2017-07-23 10:02 | XMS REPORT | Clinical Summary ---
Author Author Admin, IMTIAZ Organization [facility] Address Unknown Phone Unavailable Allergies, Adverse Reactions, [...] general medical examination at a [facility] care facility PERIPHERAL NEUROPATHY 356.9 Active [...] MG ORAL TABS 1 daily SITAGLIPTIN PHOSPHATE 68622948883 Active Nadir Hector MD Active GLUCOTROL XL 5 MG [id number] one tablet daily GLIPIZIDE 39389215869 No Longer Active Nadir Hector MD Active BACTRIM DS 800-160 MG TABS 1 po BID x 7 days SULFAMETHOXAZOLE-TRIMETHOPRIM 16988749119 No Longer Active Jamal Burrell MD Active FOSAMAX 70 MG TABS 1 po qweek. Take 30min prior to first food/drink. Avoid lying down x 1 hour. ALENDRONATE SODIUM 84484213864 Active Nadir Hector MD Active AMOXICILLIN 500 MG CAPS 2 po BID x 10 days AMOXICILLIN 31581022990 No Longer Active Nadir Hector MD Active JANUVIA 100 MG TABS 1 tablet by mouth daily SITAGLIPTIN PHOSPHATE 02583578877 No Longer Active Nadir Hector MD Active JANUVIA 100 MG TABS Take 1 tab daily SITAGLIPTIN PHOSPHATE 00110816829 No Longer Active Sharon Nuñez Active MACROBID 100 MG CAP 1 cap by mouth twice daily NITROFURANTOIN MONOHYD MACRO 14737767308 No Longer Active Crystal Fernández APRN Active MACRODANTIN 100 MG CAPS 1 capsule by mouth twice daily for seven days NITROFURANTOIN MACROCRYSTAL 96068068749 No Longer Active Ro Yang RN Active BACTRIM DS 800-160 MG TABS one tablet twice a day for seven days SULFAMETHOXAZOLE-TRIMETHOPRIM 48753334173 No Longer Active Sancho HEMANTH Camejo Active BACTRIM DS 800-160 MG TABS TAKE ONE TABLET BY MOUTH TWICE DAILY FOR 7 DAYS SULFAMETHOXAZOLE-TRIMETHOPRIM 64155145152 No Longer Active Viviana Lal RN Active CIPRO 250 MG TABS TAKE ONE TABLET BY MOUTH TWICE DAILY FOR 5 DAYS CIPROFLOXACIN HCL 38679276121 No Longer Active Viviana Lal RN Active FLEXERIL 10 MG TABS 1/2 TO 1 TABLET Q12H NEEDED CYCLOBENZAPRINE HCL 11442207039 No Longer Active Viviana Lal RN Active AMLODIPINE BESYLATE 5 MG TABS 1 1/2 daily AMLODIPINE BESYLATE 46974741901 Active Nadir Hector MD Active ONGLYZA 5 MG TABS 1 QAM SAXAGLIPTIN HCL 28116346804 No Longer Active Nadir Hector MD Active AMLODIPINE BESYLATE 5 MG TABS 1 1/2 TABLET DAILY AMLODIPINE BESYLATE 63508544273 No Longer Active Nadir Hector MD Active LORTAB 5-500 MG TABS 1 BY MOUTH Q6H NEEDED HYDROCODONE- ACETAMINOPHEN 29041186712 No Longer Active Nadir Hector MD Active ACTOS 45 MG TABS 1 QD PIOGLITAZONE HCL 31502082859 No Longer Active Nadir Hector MD Active BACTRIM DS 800-160 MG TAB 1 tab by mouth twice daily TRIMETHOPRIM-SULFAMETHOXAZOLE 92446674325 No Longer Active Nadir Hector MD Active CALCIUM + D 600-200 MG-UNIT TABS 1 TABLET TWO TIMES A DAY CALCIUM CARBONATE-VITAMIN D 27654730951 Active Ro Trey CHAMPION Active METOPROLOL SUCCINATE 25 MG CO01N-PBP 1 QAM METOPROLOL SUCCINATE 25718125538 Active Nadir Hector MD Active AMARYL 4 MG TABS 1 QD GLIMEPIRIDE 45403400851 Active Nadir Hector MD Active LOVASTATIN 40 MG TABS 1 QD LOVASTATIN 69764055552 Active Nadir Hector MD Active GLUCOPHAGE 1000 MG TABS 1 TABLET TWO TIMES A DAY METFORMIN HCL 34383194830 Active Nadir Hector MD Active MAXZIDE-25 37.5-25 MG TABS 1 QD TRIAMTERENE-HCTZ 84356203039 Active Nadir Hector MD Active ACCUPRIL 40 MG TABS 1 QD QUINAPRIL HCL 89538183492 Active Nadir Hector MD Active BACTRIM DS 800-160 MG TAB 1 tab by mouth twice daily BACTRIM DS 800-160 MG TAB TRIMETHOPRIM-SULFAMETHOXAZOLE Inactive ACTOS 45 MG TABS 1 QD ACTOS 45 MG TABS 409813 PIOGLITAZONE HCL Inactive LORTAB 5-500 MG TABS 1 BY MOUTH Q6H NEEDED LORTAB 5-500 MG TABS HYDROCODONE-ACETAMINOPHEN Inactive AMLODIPINE BESYLATE 5 MG TABS 1 1/2 TABLET DAILY AMLODIPINE BESYLATE 5 MG TABS 730685 AMLODIPINE BESYLATE Inactive ONGLYZA 5 MG TABS [...] mouth twice daily MACROBID 100 MG CAP 598640 NITROFURANTOIN MONOHYD MACRO Inactive JANUVIA 100 MG TABS Take 1 tab daily JANUVIA 100 MG TABS SITAGLIPTIN PHOSPHATE Inactive GLUCOTROL XL 5 MG [id number]-YHE one tablet daily GLUCOTROL XL 5 MG HG26N-UJA GLIPIZIDE Inactive MACRODANTIN 100 MG CAPS 1 capsule by mouth twice daily for seven days MACRODANTIN 100 MG CAPS 146876 NITROFURANTOIN MACROCRYSTAL Inactive AMOXICILLIN 500 MG CAPS 2 po BID x 10 days AMOXICILLIN 500 MG CAPS 167781 AMOXICILLIN Inactive BACTRIM DS 800-160 MG TABS [...] Fluvirin, Fluarix, Agriflu(>=18 yo)) Fluzone (>3 yrs.) [[id number]] Influenza, seasonal, injectable Vital Signs Date Name [...] HGBA1C - Chemistry sodium, serum 140 mmol/L 103-521 7363/07/23 potassium, serum 4.5 mmol/L 3.5-5.2 chloride, serum [...] Negative Encounters Code Encounter Date Provider Facility CPT-47623 Level 3 Est. 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 CPT-82691 Level 4 Est. Patient 14:21:01 ELECTRIC STOP INSTALLER Nadir Hector MD [facility] CPT-58652 Level 3 Est. Patient 16:41:34 CDT Nad[address] H[address] MD [facility] CPT-92379 Level 4 Est. Patient 13:54:35 ELECTRIC STOP INSTALLER Nadir Hector MD [facility] CPT-90116 Level 3 Est. Patient 15:51:21 CDT Nadir Hector MD [facility] CPT-87288 Level 4 New Patient 15:58:26 CDT Catalino Irene MD [facility] CPT-24838 Level 4 Est. Patient 15:42:38 ELECTRIC STOP INSTALLER Nadir Hector MD [facility] Procedures Code Procedure Name Date Entry Date Standard Description CPT-000 Give Pneumovax 14:21:01 ELECTRIC STOP INSTALLER CPT-000 Give Appropriate Flu Vaccine 14:21:01 ELECTRIC STOP INSTALLER CPT-25685 Bone Density 08:41:23 ELECTRIC STOP INSTALLER CPT-000 Give Appropriate Flu Vaccine 13:54:35 ELECTRIC STOP INSTALLER CPT-000 Give Pneumovax 13:54:35 ELECTRIC STOP INSTALLER CPT-62230 Administration 2+ single or combination vaccines inc oral 14:01:24 ELECTRIC STOP INSTALLER CPT-78524 Administration single or combination vaccine inc oral 14 :01:24 ELECTRIC STOP INSTALLER CPT-04448 Influenza High Dose age 65+ 14:01:24 ELECTRIC STOP INSTALLER CPT-42113 Pneumovax 14:01:24 ELECTRIC STOP INSTALLER CPT-75432 Venipuncture Draw Fee 10:36:48 CDT CPT-000 Give Appropriate Flu Vaccine 15:20:11 ELECTRIC STOP INSTALLER CPT-67813 Administration single or combination vaccine inc oral 15 :50:33 ELECTRIC STOP INSTALLER CPT-10884 Influenza High Dose age 65+ 15:50:33 ELECTRIC STOP INSTALLER CPT-23963 LS spine AP and Lat 15:30:05 ELECTRIC STOP INSTALLER CPT-66279 Hip comp min 2V 15:30:05 ELECTRIC STOP INSTALLER CPT-75966 Postop F/U Visit 17:28:18 CDT CPT-OV Office Visit 15:04:38 CDT CPT-77189 Bladder Scan 15:58:26 CDT CPT-99647 Cystoscopy 15:58:26 CDT CPT-OV Office Visit 16:15:09 CDT CPT-000 Give Appropriate Flu Vaccine 16:33:10 ELECTRIC STOP INSTALLER CPT-26952 Administration single or combination vaccine inc oral 19 :21:12 ELECTRIC STOP INSTALLER CPT-10053 Influenza split virus > age 3 19:21:12 ELECTRIC STOP INSTALLER
--- OUTSIDE RECORDS SUMMARY | 2017-07-23 10:03 | XMS REPORT | Clinical Summary ---
Author Author Admin, IMTIAZ Organization [facility] Address Unknown Phone Unavailable Allergies, Adverse [...] medical examination at a [facility] care facility PERIPHERAL NEUROPATHY 356.9 Active Nadir [...] AMOXICILLIN 500 MG ORAL CAPS tid AMOXICILLIN 83542669198 No Longer Active Catalino Irene MD Active BACTRIM DS TABS Take 1 po BID SULFAMETHOXAZOLE- TRIMETHOPRIM TABS 99180746013 No Longer Active Pma Gomez LPN Active MACROBID 100 MG CAP 1 cap by mouth twice daily NITROFURANTOIN MONOHYD MACRO 60175647029 No Longer Active Pam Gomez BOTANY TEACHER Active DIFLUCAN 150 MG TAB 1 tablet by mouth daily FLUCONAZOLE 91988720174 Active Pam Gomez LPN Active CIPRO 250 MG TAB 1 tablet by mouth twice daily CIPROFLOXACIN HCL 98185812958 No Longer Active Pam Gomez LPN Active JANUVIA 100 MG ORAL TABS 1 daily SITAGLIPTIN PHOSPHATE 60165056694 Active Nadir Hector MD Active GLUCOTROL XL 5 MG [id number] one tablet daily GLIPIZIDE 70228760624 No Longer Active Nadir Hector MD Active BACTRIM DS 800-160 MG TABS 1 po BID x 7 days SULFAMETHOXAZOLE-TRIMETHOPRIM 77941247204 No Longer Active Jamal Burrell MD Active FOSAMAX 70 MG TABS 1 po qweek. Take 30min prior to first food/drink. Avoid lying down x 1 hour. ALENDRONATE SODIUM 36769784621 Active Nadir Hector MD Active AMOXICILLIN 500 MG CAPS 2 po BID x 10 days AMOXICILLIN 12985427816 No Longer Active Nadir Hector MD Active JANUVIA 100 MG TABS 1 tablet by mouth daily SITAGLIPTIN PHOSPHATE 76839470035 No Longer Active Nadir Hector MD Active JANUVIA 100 MG TABS Take 1 tab daily SITAGLIPTIN PHOSPHATE 52244798877 No Longer Active Sharon Nuñez Active MACROBID 100 MG CAP 1 cap by mouth twice daily NITROFURANTOIN MONOHYD MACRO 79983329594 No Longer Active Crystal Fernández APRN Active MACRODANTIN 100 MG CAPS 1 capsule by mouth twice daily for seven days NITROFURANTOIN MACROCRYSTAL 21272675852 No Longer Active Ro Yang RN Active BACTRIM DS 800-160 MG TABS one tablet twice a day for seven days SULFAMETHOXAZOLE-TRIMETHOPRIM 80584803053 No Longer Active HEMANTH Griffin Active BACTRIM DS 800-160 MG TABS TAKE ONE TABLET BY MOUTH TWICE DAILY FOR 7 DAYS SULFAMETHOXAZOLE-TRIMETHOPRIM 54534688362 No Longer Active Viviana Lal RN Active CIPRO 250 MG TABS TAKE ONE TABLET BY MOUTH TWICE DAILY FOR 5 DAYS CIPROFLOXACIN HCL 34059272622 No Longer Active Viviana Lal RN Active FLEXERIL 10 MG TABS 1/2 TO 1 TABLET Q12H NEEDED CYCLOBENZAPRINE HCL 98081459696 No Longer Active Viviana Lukasz RN Active AMLODIPINE BESYLATE 5 MG TABS 1 1/2 daily AMLODIPINE BESYLATE 46550417052 Active Nadir Hector MD Active ONGLYZA 5 MG TABS 1 QAM SAXAGLIPTIN HCL 48461306856 No Longer Active Nadir Hector MD Active AMLODIPINE BESYLATE 5 MG TABS 1 1/2 TABLET DAILY AMLODIPINE BESYLATE 71326837420 No Longer Active Nadir Hector MD Active LORTAB 5-500 MG TABS 1 BY MOUTH Q6H NEEDED HYDROCODONE- ACETAMINOPHEN 14797055806 No Longer Active Nadir Hector MD Active ACTOS 45 MG TABS 1 QD PIOGLITAZONE HCL 95834149865 No Longer Active Nadir Hector MD Active BACTRIM DS 800-160 MG TAB 1 tab by mouth twice daily TRIMETHOPRIM-SULFAMETHOXAZOLE 15834070038 No Longer Active Nadir Hector MD Active CALCIUM + D 600-200 MG-UNIT TABS 1 TABLET TWO TIMES A DAY CALCIUM CARBONATE-VITAMIN D 47674388589 Active Ro Trey RN Active METOPROLOL SUCCINATE 25 MG [id number] 1 QAM METOPROLOL SUCCINATE 48662984899 Active Nadir Hector MD Active AMARYL 4 MG TABS 1 QD GLIMEPIRIDE 74711735429 Active Nadir Hector MD Active LOVASTATIN 40 MG TABS 1 QD LOVASTATIN 44230374132 Active Nadir Hector MD Active GLUCOPHAGE 1000 MG TABS 1 TABLET TWO TIMES A DAY METFORMIN HCL 47213713713 Active Nadir Hector MD Active MAXZIDE-25 37.5-25 MG TABS 1 QD TRIAMTERENE-HCTZ 26199421840 Active Nadir Hector MD Active ACCUPRIL 40 MG TABS 1 QD QUINAPRIL HCL 84944550440 Active Nadir Hector MD Active BACTRIM DS 800-160 MG TAB 1 tab by mouth twice daily BACTRIM DS 800-160 MG TAB TRIMETHOPRIM-SULFAMETHOXAZOLE Inactive ACTOS 45 MG TABS 1 QD ACTOS 45 MG TABS 966911 PIOGLITAZONE HCL Inactive LORTAB 5-500 MG TABS 1 BY MOUTH Q6H NEEDED LORTAB 5-500 MG TABS HYDROCODONE-ACETAMINOPHEN Inactive AMLODIPINE BESYLATE 5 MG TABS 1 1/2 TABLET DAILY AMLODIPINE BESYLATE 5 MG TABS 995546 AMLODIPINE BESYLATE Inactive ONGLYZA 5 MG TABS 1 QAM ONGLYZA 5 MG TABS SAXAGLIPTIN HCL Inactive FLEXERIL 10 MG TABS 1/2 TO 1 TABLET Q12H NEEDED FLEXERIL 10 MG TABS CYCLOBENZAPRINE HCL Inactive CIPRO 250 MG TABS TAKE ONE TABLET BY MOUTH TWICE DAILY FOR 5 DAYS CIPRO 250 MG TABS 484781 CIPROFLOXACIN HCL Inactive BACTRIM DS 800-160 MG TABS TAKE ONE TABLET BY MOUTH TWICE DAILY FOR 7 DAYS BACTRIM DS 800-160 MG TABS SULFAMETHOXAZOLE-TRIMETHOPRIM Inactive BACTRIM DS 800-160 MG TABS one tablet twice a day for seven days BACTRIM DS 800-160 MG TABS SULFAMETHOXAZOLE-TRIMETHOPRIM Inactive MACROBID 100 MG CAP 1 cap by mouth twice daily MACROBID 100 MG CAP 934539 NITROFURANTOIN MONOHYD MACRO Inactive JANUVIA 100 MG TABS Take 1 tab daily JANUVIA 100 MG TABS SITAGLIPTIN PHOSPHATE Inactive GLUCOTROL XL 5 MG [id number] one tablet daily GLUCOTROL XL 5 MG [id number] GLIPIZIDE Inactive MACRODANTIN 100 MG CAPS 1 capsule by mouth twice daily for seven days MACRODANTIN 100 MG CAPS 820507 NITROFURANTOIN MACROCRYSTAL Inactive AMOXICILLIN 500 MG CAPS 2 po BID x 10 days AMOXICILLIN 500 MG CAPS 475114 AMOXICILLIN Inactive BACTRIM DS 800-160 MG TABS 1 po BID x 7 days BACTRIM DS 800-160 MG TABS SULFAMETHOXAZOLE-TRIMETHOPRIM Inactive CIPRO 250 MG TAB 1 tablet by mouth twice daily CIPRO 250 MG TAB 961511 CIPROFLOXACIN HCL Inactive MACROBID 100 MG CAP 1 cap by mouth twice daily MACROBID 100 MG CAP 842525 NITROFURANTOIN MONOHYD MACRO Inactive BACTRIM DS TABS Take 1 po BID BACTRIM DS TABS SULFAMETHOXAZOLE-TRIMETHOPRIM TABS Inactive AMOXICILLIN 500 MG ORAL CAPS tid AMOXICILLIN 500 MG ORAL CAPS 977814 AMOXICILLIN Inactive Advance Directives Directive Description Start Date PERMISSION TO SHARE Immunizations Vaccine Administration Date Value Standard Description pneumococcal immunization administered Pneumovax 23 [CVX33] pneumococcal polysaccharide vaccine, 23 valent Seasonal influenza vaccine, injectable, containing preservative, for > 3 years old (Afluria, FluLaval, Fluzone, Fluvirin, Fluarix, Agriflu(>=18 yo)) Fluzone (>3 yrs.) [UVU314] Influenza, seasonal, injectable Vital Signs Date Name [...] HGBA1C - Chemistry sodium, serum 140 mmol/L 028-688 8877/07/23 potassium, serum 4.5 mmol/L 3.5-5.2 chloride, serum [...] 0.2 Encounters Code Encounter Date Provider Facility CPT-09359 Level 4 New Patient 14:59:23 CDT Catalino Irene MD [facility] CPT-88916 Level 3 Est. Patient 16:43:04 CAMP PROGRAM DIRECTOR Nadir Hector MD [facility] CPT-09238 Level 4 Est. Patient 14:21:01 CAMP PROGRAM DIRECTOR Nadir Hector MD [facility] CPT-61868 Level 3 Est. Patient 16:41:34 CDT Nadir Hector MD [facility] CPT-83249 Level 4 Est. Patient 13:54:35 CAMP PROGRAM DIRECTOR Nadir Hector MD [facility] CPT-06680 Level 3 Est. Patient 15:51:21 CDT Nadir Hector MD [facility] CPT-52873 Level 4 New Patient 15:58:26 CDT Catalino Irene MD [facility] CPT-99555 Level 4 Est. Patient 15:42:38 CAMP PROGRAM DIRECTOR Nadir Hector MD [facility] Procedures Code Procedure Name Date Entry Date Standard Description CPT-55750 Urine Dip (Floor Use Only) 14:59:25 CDT CPT-83516 Bladder Scan 14:59:24 CDT CPT-27209 Cystoscopy 14:59:24 CDT CPT-98820 Abd single AP View 12:13:13 CDT CPT-000 Give Pneumovax 14:21:01 CAMP PROGRAM DIRECTOR CPT-000 Give Appropriate Flu Vaccine 14:21:01 CAMP PROGRAM DIRECTOR CPT-32116 Bone Density 08:41:23 CAMP PROGRAM DIRECTOR CPT-000 Give Appropriate Flu Vaccine 13:54:35 CAMP PROGRAM DIRECTOR CPT-000 Give Pneumovax 13:54:35 CAMP PROGRAM DIRECTOR CPT-60841 Administration 2+ single or combination vaccines inc oral 14:01:24 CAMP PROGRAM DIRECTOR CPT-03756 Administration single or combination vaccine inc oral 14 :01:24 CAMP PROGRAM DIRECTOR CPT-12821 Influenza High Dose age 65+ 14:01:24 CAMP PROGRAM DIRECTOR CPT-85047 Pneumovax 14:01:24 CAMP PROGRAM DIRECTOR CPT-23471 Venipuncture Draw Fee 10:36:48 CDT CPT-000 Give Appropriate Flu Vaccine 15:20:11 CAMP PROGRAM DIRECTOR CPT-00770 Administration single or combination vaccine inc oral 15 :50:33 CAMP PROGRAM DIRECTOR CPT-58797 Influenza High Dose age 65+ 15:50:33 CAMP PROGRAM DIRECTOR CPT-35986 LS spine AP and Lat 15:30:05 CAMP PROGRAM DIRECTOR CPT-40137 Hip comp min 2V 15:30:05 CAMP PROGRAM DIRECTOR CPT-36170 Postop F/U Visit 17:28:18 CDT CPT-OV Office Visit 15:04:38 CDT CPT-55350 Bladder Scan 15:58:26 CDT CPT-36495 Cystoscopy 15:58:26 CDT CPT-OV Office Visit 16:15:09 CDT CPT-000 Give Appropriate Flu Vaccine 16:33:10 CAMP PROGRAM DIRECTOR CPT-49995 Administration single or combination vaccine inc oral 19 :21:12 CAMP PROGRAM DIRECTOR CPT-66989 Influenza split virus > age 3 19:21:12 CAMP PROGRAM DIRECTOR
--- OUTSIDE RECORDS SUMMARY | 2017-07-23 10:03 | XMS REPORT | Clinical Summary ---
Author Author Admin, IMTIAZ Organization [facility] Address Unknown Phone Unavailable Allergies, Adverse [...] MD Routine [facility] PERIPHERAL NEUROPATHY 356.9 [...] tablet by mouth twice daily CIPROFLOXACIN HCL 28297422136 Active Ro Meyer Active BACTRIM DS 800-160 MG ORAL TABS 1 BID for 5 days SULFAMETHOXAZOLE-TRIMETHOPRIM 73100482893 Active Catalino Irene MD Active AMOXICILLIN 500 MG ORAL CAPS tid AMOXICILLIN 21023504973 No Longer Active Catalino Irene MD Active BACTRIM DS TABS Take 1 po BID SULFAMETHOXAZOLE- TRIMETHOPRIM TABS 99289948655 No Longer Active Pam ALEAH GomezN Active MACROBID 100 MG CAP 1 cap by mouth twice daily NITROFURANTOIN MONOHYD MACRO 62477025724 No Longer Active Pam Gomez BRAKE COUPLER DINKEY Active DIFLUCAN 150 MG TAB 1 tablet by mouth daily FLUCONAZOLE 69028523089 Active Pam Gomez BRAKE COUPLER DINKEY Active CIPRO 250 MG TAB 1 tablet by mouth twice daily CIPROFLOXACIN HCL 22824000330 No Longer Active Pam Gomez BRAKE COUPLER DINKEY Active JANUVIA 100 MG ORAL TABS 1 daily SITAGLIPTIN PHOSPHATE 10150558291 Active Nadir Hector MD Active GLUCOTROL XL 5 MG [id number] one tablet daily GLIPIZIDE 18215808048 No Longer Active Nadir Hector MD Active BACTRIM DS 800-160 MG TABS 1 po BID x 7 days SULFAMETHOXAZOLE-TRIMETHOPRIM 67807418516 No Longer Active Jamal Burrell MD Active FOSAMAX 70 MG TABS 1 po qweek. Take 30min prior to first food/drink. Avoid lying down x 1 hour. ALENDRONATE SODIUM 18332794816 Active Nadir Hector MD Active AMOXICILLIN 500 MG CAPS 2 po BID x 10 days AMOXICILLIN 79342483842 No Longer Active Nadir Hector MD Active JANUVIA 100 MG TABS 1 tablet by mouth daily SITAGLIPTIN PHOSPHATE 24281107416 No Longer Active Nadir Hector MD Active JANUVIA 100 MG TABS Take 1 tab daily SITAGLIPTIN PHOSPHATE 00760006447 No Longer Active Sharon Nuñez Active MACROBID 100 MG CAP 1 cap by mouth twice daily NITROFURANTOIN MONOHYD MACRO 49956832840 No Longer Active Crystal Fernández APRN Active MACRODANTIN 100 MG CAPS 1 capsule by mouth twice daily for seven days NITROFURANTOIN MACROCRYSTAL 44403261024 No Longer Active Ro Yang RN Active BACTRIM DS 800-160 MG TABS one tablet twice a day for seven days SULFAMETHOXAZOLE-TRIMETHOPRIM 60872662095 No Longer Active Sancho ANIYA CamejoFiorella Active BACTRIM DS 800-160 MG TABS TAKE ONE TABLET BY MOUTH TWICE DAILY FOR 7 DAYS SULFAMETHOXAZOLE-TRIMETHOPRIM 10313764523 No Longer Active Viviana Lal RN Active CIPRO 250 MG TABS TAKE ONE TABLET BY MOUTH TWICE DAILY FOR 5 DAYS CIPROFLOXACIN HCL 83369765034 No Longer Active Viviana Lal RN Active FLEXERIL 10 MG TABS 1/2 TO 1 TABLET Q12H NEEDED CYCLOBENZAPRINE HCL 30632353551 No Longer Active Viviana Lal RN Active AMLODIPINE BESYLATE 5 MG TABS 1 1/2 daily AMLODIPINE BESYLATE 23657522270 Active Nadir Hector MD Active ONGLYZA 5 MG TABS 1 QAM SAXAGLIPTIN HCL 68213775721 No Longer Active Nadir Hector MD Active AMLODIPINE BESYLATE 5 MG TABS 1 1/2 TABLET DAILY AMLODIPINE BESYLATE 75580567067 No Longer Active Nadir Hector MD Active LORTAB 5-500 MG TABS 1 BY MOUTH Q6H NEEDED HYDROCODONE- ACETAMINOPHEN 47528670548 No Longer Active Nadir Hector MD Active ACTOS 45 MG TABS 1 QD PIOGLITAZONE HCL 74328553014 No Longer Active Nadir Hector MD Active BACTRIM DS 800-160 MG TAB 1 tab by mouth twice daily TRIMETHOPRIM-SULFAMETHOXAZOLE 27579704441 No Longer Active Nadir Hector MD Active CALCIUM + D 600-200 MG-UNIT TABS 1 TABLET TWO TIMES A DAY CALCIUM CARBONATE-VITAMIN D 23830713071 Active Ro Yang RN Active METOPROLOL SUCCINATE 25 MG [id number] 1 QAM METOPROLOL SUCCINATE 86620596471 Active Nadir Hector MD Active AMARYL 4 MG TABS 1 QD GLIMEPIRIDE 24721522109 Active Nadir Hector MD Active LOVASTATIN 40 MG TABS 1 QD LOVASTATIN 60050632040 Active Nadir Hector MD Active GLUCOPHAGE 1000 MG TABS 1 TABLET TWO TIMES A DAY METFORMIN HCL 18728986655 Active Nadir Hector MD Active MAXZIDE-25 37.5-25 MG TABS 1 QD TRIAMTERENE-HCTZ 19161210076 Active Nadir Hector MD Active ACCUPRIL 40 MG TABS 1 QD QUINAPRIL HCL 65193999238 Active Nadir Hector MD Active BACTRIM DS 800-160 MG TAB 1 tab by mouth twice daily BACTRIM DS 800-160 MG TAB TRIMETHOPRIM-SULFAMETHOXAZOLE Inactive ACTOS 45 MG TABS 1 QD ACTOS 45 MG TABS 699927 PIOGLITAZONE HCL Inactive LORTAB 5-500 MG TABS 1 BY MOUTH Q6H NEEDED LORTAB 5-500 MG TABS HYDROCODONE-ACETAMINOPHEN Inactive AMLODIPINE BESYLATE 5 MG TABS 1 1/2 TABLET DAILY AMLODIPINE BESYLATE 5 MG TABS 166815 AMLODIPINE BESYLATE Inactive ONGLYZA 5 MG TABS 1 QAM ONGLYZA 5 MG TABS SAXAGLIPTIN HCL Inactive FLEXERIL 10 MG TABS 1/2 TO 1 TABLET Q12H NEEDED FLEXERIL 10 MG TABS CYCLOBENZAPRINE HCL Inactive CIPRO 250 MG TABS TAKE ONE TABLET BY MOUTH TWICE DAILY FOR 5 DAYS CIPRO 250 MG TABS 050355 CIPROFLOXACIN HCL Inactive BACTRIM DS 800-160 MG TABS TAKE ONE TABLET BY MOUTH TWICE DAILY FOR 7 DAYS BACTRIM DS 800-160 MG TABS SULFAMETHOXAZOLE-TRIMETHOPRIM Inactive BACTRIM DS 800-160 MG TABS one tablet twice a day for seven days BACTRIM DS 800-160 MG TABS SULFAMETHOXAZOLE-TRIMETHOPRIM Inactive MACROBID 100 MG CAP 1 cap by mouth twice daily MACROBID 100 MG CAP 9613120 NITROFURANTOIN MONOHYD MACRO Inactive JANUVIA 100 MG TABS Take 1 tab daily JANUVIA 100 MG TABS SITAGLIPTIN PHOSPHATE Inactive GLUCOTROL XL 5 MG [id number] one tablet daily GLUCOTROL XL 5 MG [id number] GLIPIZIDE Inactive MACRODANTIN 100 MG CAPS 1 capsule by mouth twice daily for seven days MACRODANTIN 100 MG CAPS 5739095 NITROFURANTOIN MACROCRYSTAL Inactive AMOXICILLIN 500 MG CAPS 2 po BID x 10 days AMOXICILLIN 500 MG CAPS 213188 AMOXICILLIN Inactive BACTRIM DS 800-160 MG TABS 1 po BID x 7 days BACTRIM DS 800-160 MG TABS SULFAMETHOXAZOLE-TRIMETHOPRIM Inactive CIPRO 250 MG TAB 1 tablet by mouth twice daily CIPRO 250 MG TAB 078301 CIPROFLOXACIN HCL Inactive MACROBID 100 MG CAP 1 cap by mouth twice daily MACROBID 100 MG CAP 8851358 NITROFURANTOIN MONOHYD MACRO Inactive BACTRIM DS TABS Take 1 po BID BACTRIM DS TABS SULFAMETHOXAZOLE-TRIMETHOPRIM TABS Inactive AMOXICILLIN 500 MG ORAL CAPS tid AMOXICILLIN 500 MG ORAL CAPS 495171 AMOXICILLIN Inactive Advance Directives Directive Description Start Date PERMISSION TO SHARE Immunizations Vaccine Administration Date Value Standard Description pneumococcal immunization administered Pneumovax 23 [CVX33] pneumococcal polysaccharide vaccine, 23 valent Seasonal influenza vaccine, injectable, containing preservative, for > 3 years old (Afluria, FluLaval, Fluzone, Fluvirin, Fluarix, Agriflu(>=18 yo)) Fluzone (>3 yrs.) [[id number]] Influenza, seasonal, injectable Vital Signs Date Name [...] Panel - Chemistry sodium, serum 138 mmol/L 775-138 3577/07/02 potassium, serum 4.5 mmol/L 3.5-5.2 chloride, serum [...] Lab Report: Lipid Panel, Comp. Metabolic Panel, [facility] - Chemistry cholesterol, serum 147 mg/dL 785-462 8304/08/18 triglyceride, serum, fasting 242 mg/dL 30-200 HDL cholesterol, serum 36 mg/dL 32-96 LDL cholesterol, serum 63 mg/dL 0-130 sodium, serum 137 mmol/L 184-925 6413/08/18 potassium, serum 4.7 mmol/L 3.5-5.2 chloride, serum [...] 6.5 Encounters Code Encounter Date Provider Facility CPT-29250 Level 2 Est. Patient 18:56:33 CDT Catalino Irene MD [facility] CPT-26753 Level 4 New Patient 14:59:23 CDT Catalino Irene MD [facility] CPT-76800 Level 3 Est. Patient 16:43:04 INSPECTOR BALANCE WHEEL MOTION Nadir Hector MD [facility] CPT-44089 Level 4 Est. Patient 14:21:01 INSPECTOR BALANCE WHEEL MOTION Nadir Hector MD [facility] CPT-13812 Level 3 Est. Patient 16:41:34 CDT Nadir Hector MD [facility] CPT-33409 Level 4 Est. Patient 13:54:35 INSPECTOR BALANCE WHEEL MOTION Nadir Hector MD [facility] CPT-44044 Level 3 Est. Patient 15:51:21 CDT Nadir Hector MD [facility] CPT-57426 Level 4 New Patient 15:58:26 CDT Catalino Irene MD [facility] CPT-30032 Level 4 Est. Patient 15:42:38 INSPECTOR BALANCE WHEEL MOTION Nadir Hector MD [facility] Procedures Code Procedure Name Date Entry Date Standard Description CPT-53912 Urine Dip (Floor Use Only) 18:56:34 CDT CPT-93239 Urine Dip (Floor Use Only) 14:21:22 CDT CPT-J0561 Bicillin LA 1,200,000 u (PCN G Benzathine) 13:16:19 CDT CPT-05927 Abx/Therapy Injection 13:16:19 CDT CPT-57921 Urine Dip (Floor Use Only) 14:59:25 CDT CPT-05134 Bladder Scan 14:59:24 CDT CPT-03675 Cystoscopy 14:59:24 CDT CPT-86334 Abd single AP View 12:13:13 CDT CPT-000 Give Pneumovax 14:21:01 INSPECTOR BALANCE WHEEL MOTION CPT-000 Give Appropriate Flu Vaccine 14:21:01 INSPECTOR BALANCE WHEEL MOTION CPT-25520 Bone Density 08:41:23 INSPECTOR BALANCE WHEEL MOTION CPT-000 Give Appropriate Flu Vaccine 13:54:35 INSPECTOR BALANCE WHEEL MOTION CPT-000 Give Pneumovax 13:54:35 INSPECTOR BALANCE WHEEL MOTION CPT-00121 Administration 2+ single or combination vaccines inc oral 14:01:24 INSPECTOR BALANCE WHEEL MOTION CPT-27523 Administration single or combination vaccine inc oral 14 :01:24 INSPECTOR BALANCE WHEEL MOTION CPT-42070 Influenza High Dose age 65+ 14:01:24 INSPECTOR BALANCE WHEEL MOTION CPT-97241 Pneumovax 14:01:24 INSPECTOR BALANCE WHEEL MOTION CPT-00677 Venipuncture Draw Fee 10:36:48 CDT CPT-000 Give Appropriate Flu Vaccine 15:20:11 INSPECTOR BALANCE WHEEL MOTION CPT-93559 Administration single or combination vaccine inc oral 15 :50:33 INSPECTOR BALANCE WHEEL MOTION CPT-53803 Influenza High Dose age 65+ 15:50:33 INSPECTOR BALANCE WHEEL MOTION CPT-44520 LS spine AP and Lat 15:30:05 INSPECTOR BALANCE WHEEL MOTION CPT-59456 Hip comp min 2V 15:30:05 INSPECTOR BALANCE WHEEL MOTION CPT-05741 Postop F/U Visit 17:28:18 CDT CPT-OV Office Visit 15:04:38 CDT CPT-37669 Bladder Scan 15:58:26 CDT CPT-94885 Cystoscopy 15:58:26 CDT CPT-OV Office Visit 16:15:09 CDT CPT-000 Give Appropriate Flu Vaccine 16:33:10 INSPECTOR BALANCE WHEEL MOTION CPT-70870 Administration single or combination vaccine inc oral 19 :21:12 INSPECTOR BALANCE WHEEL MOTION CPT-46138 Influenza split virus > age 3 19:21:12 INSPECTOR BALANCE WHEEL MOTION
--- OUTSIDE RECORDS SUMMARY | 2017-07-23 10:04 | XMS REPORT | Clinical Summary ---
Author Author Admin, IMTIAZ Organization [facility] Address Unknown Phone Unavailable Allergies, Adverse Reactions, Alerts Allergy Name Reaction Description Start Date Severity Status Provider No Known Allergies Madiha Melendez MA Conditions or Problems Problem Name Problem Code Onset Date Status Entry Date Provider Comment Standard Description Annotate HYPERTENSION 401.9 Active Nadir Hector MD Unspecified essential hypertension DIABETES MELLITUS 250.00 Active Nadir Hectro MD Diabetes mellitus without mention of complication, type II or unspecified type, not stated as uncontrolled HYPERLIPIDEMIA 272.4 Active Nadir Hector MD Other and unspecified hyperlipidemia HEALTH MAINTENANCE EXAM V70.0 Active Nadir Hector MD Routine general medical examination at a [facility] care facility PERIPHERAL NEUROPATHY 356.9 [...] TAB 1 tablet by mouth daily FLUCONAZOLE 70842220669 Active Pam Gomez LPN Active CIPRO 250 MG TAB 1 tablet by mouth twice daily CIPROFLOXACIN HCL 08776960644 No Longer Active Pam Gomez LPN Active JANUVIA 100 MG ORAL TABS 1 daily SITAGLIPTIN PHOSPHATE 03962725658 Active Nadir Hector MD Active GLUCOTROL XL 5 MG [id number] one tablet daily GLIPIZIDE 83352540810 No Longer Active Nadir Hector MD Active BACTRIM DS 800-160 MG TABS 1 po BID x 7 days SULFAMETHOXAZOLE-TRIMETHOPRIM 81766430202 No Longer Active Jamal Burrell MD Active FOSAMAX 70 MG TABS 1 po qweek. Take 30min prior to first food/drink. Avoid lying down x 1 hour. ALENDRONATE SODIUM 00693612810 Active Nadir Hector MD Active AMOXICILLIN 500 MG CAPS 2 po BID x 10 days AMOXICILLIN 30700494637 No Longer Active Nadir Hector MD Active JANUVIA 100 MG TABS 1 tablet by mouth daily SITAGLIPTIN PHOSPHATE 70678510843 No Longer Active Nadir Hector MD Active JANUVIA 100 MG TABS Take 1 tab daily SITAGLIPTIN PHOSPHATE 92030688384 No Longer Active Sharon Nuñez Active MACROBID 100 MG CAP 1 cap by mouth twice daily NITROFURANTOIN MONOHYD MACRO 06022804795 No Longer Active Crystal Fernández APRN Active MACRODANTIN 100 MG CAPS 1 capsule by mouth twice daily for seven days NITROFURANTOIN MACROCRYSTAL 90785020753 No Longer Active Ro Yang RN Active BACTRIM DS 800-160 MG TABS one tablet twice a day for seven days SULFAMETHOXAZOLE-TRIMETHOPRIM 74459803584 No Longer Active HEMANTH Griffin Active BACTRIM DS 800-160 MG TABS TAKE ONE TABLET BY MOUTH TWICE DAILY FOR 7 DAYS SULFAMETHOXAZOLE-TRIMETHOPRIM 27275725226 No Longer Active Viviana Lal RN Active CIPRO 250 MG TABS TAKE ONE TABLET BY MOUTH TWICE DAILY FOR 5 DAYS CIPROFLOXACIN HCL 76918511224 No Longer Active Viviana Lal RN Active FLEXERIL 10 MG TABS 1/2 TO 1 TABLET Q12H NEEDED CYCLOBENZAPRINE HCL 57584383062 No Longer Active Viviana Lal RN Active AMLODIPINE BESYLATE 5 MG TABS 1 1/2 daily AMLODIPINE BESYLATE 34546637850 Active Nadir Hector MD Active ONGLYZA 5 MG TABS 1 QAM SAXAGLIPTIN HCL 98735864026 No Longer Active Nadir Hector MD Active AMLODIPINE BESYLATE 5 MG TABS 1 1/2 TABLET DAILY AMLODIPINE BESYLATE 80918161174 No Longer Active Nadir Hector MD Active LORTAB 5-500 MG TABS 1 BY MOUTH Q6H NEEDED HYDROCODONE- ACETAMINOPHEN 34789000013 No Longer Active Nadir Hector MD Active ACTOS 45 MG TABS 1 QD PIOGLITAZONE HCL 71896239802 No Longer Active Nadir Hector MD Active BACTRIM DS 800-160 MG TAB 1 tab by mouth twice daily TRIMETHOPRIM-SULFAMETHOXAZOLE 91094702247 No Longer Active Nadir Hector MD Active CALCIUM + D 600-200 MG-UNIT TABS 1 TABLET TWO TIMES A DAY CALCIUM CARBONATE-VITAMIN D 15955898220 Active Ro Yang RN Active METOPROLOL SUCCINATE 25 MG [id number] 1 QAM METOPROLOL SUCCINATE 89839538854 Active Nadir Hector MD Active AMARYL 4 MG TABS 1 QD GLIMEPIRIDE 26578972378 Active Nadir Hector MD Active LOVASTATIN 40 MG TABS 1 QD LOVASTATIN 46381211182 Active Nadri Hector MD Active GLUCOPHAGE 1000 MG TABS 1 TABLET TWO TIMES A DAY METFORMIN HCL 91321145683 Active Nadir Hector MD Active MAXZIDE-25 37.5-25 MG TABS 1 QD TRIAMTERENE-HCTZ 61343343698 Active Nadir Hector MD Active ACCUPRIL 40 MG TABS 1 QD QUINAPRIL HCL 62832311360 Active Nadir Hector MD Active BACTRIM DS 800-160 MG TAB 1 tab by mouth twice daily BACTRIM DS 800-160 MG TAB TRIMETHOPRIM-SULFAMETHOXAZOLE Inactive ACTOS 45 MG TABS 1 QD ACTOS 45 MG TABS 914248 PIOGLITAZONE HCL Inactive LORTAB 5-500 MG TABS 1 BY MOUTH Q6H NEEDED LORTAB 5-500 MG TABS HYDROCODONE-ACETAMINOPHEN Inactive AMLODIPINE BESYLATE 5 MG TABS 1 1/2 TABLET DAILY AMLODIPINE BESYLATE 5 MG TABS 039122 AMLODIPINE BESYLATE Inactive ONGLYZA 5 MG TABS [...] mouth twice daily MACROBID 100 MG CAP 526927 NITROFURANTOIN MONOHYD MACRO Inactive JANUVIA 100 MG TABS Take 1 tab daily JANUVIA 100 MG TABS SITAGLIPTIN PHOSPHATE Inactive GLUCOTROL XL 5 MG [id number] one tablet daily GLUCOTROL XL 5 MG [id number] GLIPIZIDE Inactive MACRODANTIN 100 MG CAPS 1 capsule by mouth twice daily for seven days MACRODANTIN 100 MG CAPS 357358 NITROFURANTOIN MACROCRYSTAL Inactive AMOXICILLIN 500 MG CAPS 2 po BID x 10 days AMOXICILLIN 500 MG CAPS 480377 AMOXICILLIN Inactive BACTRIM DS 800-160 MG TABS 1 po BID x 7 days BACTRIM DS 800-160 MG TABS SULFAMETHOXAZOLE-TRIMETHOPRIM Inactive CIPRO 250 MG TAB 1 tablet by mouth twice daily CIPRO 250 MG TAB 086381 CIPROFLOXACIN HCL Inactive Advance Directives Directive Description Start Date PERMISSION TO SHARE Immunizations Vaccine Administration Date Value Standard Description pneumococcal immunization administered Pneumovax 23 [CVX33] pneumococcal polysaccharide vaccine, 23 valent Seasonal influenza vaccine, injectable, containing preservative, for > 3 years old (Afluria, FluLaval, Fluzone, Fluvirin, Fluarix, Agriflu(>=18 yo)) Fluzone (>3 yrs.) [[id number]] Influenza, seasonal, injectable Vital Signs Date Name [...] HGBA1C - Chemistry sodium, serum 140 mmol/L 555-358 6811/07/23 potassium, serum 4.5 mmol/L 3.5-5.2 chloride, serum [...] 5.0-8.5 Encounters Code Encounter Date Provider Facility CPT-92558 Level 3 Est. Patient 16:43:04 [employer] Nadir Hector MD [facility] CPT-44571 Level 4 Est. Patient 14:21:01 [employer] Nadir Hector MD [facility] CPT-05676 Level 3 Est. Patient 16:41:34 CDT Nadir Hector MD [facility] CPT-02595 Level 4 Est. Patient 13:54:35 [employer] Nadir Hector MD [facility] CPT-01775 Level 3 Est. Patient 15:51:21 CDT Nadir Hector MD [facility] CPT-13442 Level 4 New Patient 15:58:26 CDT Catalino Irene MD [facility] CPT-81503 Level 4 Est. Patient 15:42:38 [employer] Nadir Hector MD [facility] Procedures Code Procedure Name Date Entry Date Standard Description CPT-000 Give Pneumovax 14:21:01 [employer] CPT-000 Give Appropriate Flu Vaccine 14:21:01 [employer] CPT-56434 Bone Density 08:41:23 [employer] CPT-000 Give Appropriate Flu Vaccine 13:54:35 [employer] CPT-000 Give Pneumovax 13:54:35 [employer] CPT-70408 Administration 2+ single or combination vaccines inc oral 14:01:24 [employer] CPT-11775 Administration single or combination vaccine inc oral 14 :01:24 [employer] CPT-61533 Influenza High Dose age 65+ 14:01:24 [employer] CPT-03594 Pneumovax 14:01:24 [employer] CPT-20765 Venipuncture Draw Fee 10:36:48 CDT CPT-000 Give Appropriate Flu Vaccine 15:20:11 [employer] CPT-90050 Administration single or combination vaccine inc oral 15 :50:33 [employer] CPT-53018 Influenza High Dose age 65+ 15:50:33 [employer] CPT-07942 LS spine AP and Lat 15:30:05 [employer] CPT-38913 Hip comp min 2V 15:30:05 [employer] CPT-19634 Postop F/U Visit 17:28:18 CDT CPT-OV Office Visit 15:04:38 CDT CPT-67106 Bladder Scan 15:58:26 CDT CPT-44354 Cystoscopy 15:58:26 CDT CPT-OV Office Visit 16:15:09 CDT CPT-000 Give Appropriate Flu Vaccine 16:33:10 [employer] CPT-70173 Administration single or combination vaccine inc oral 19 :21:12 [employer] CPT-74361 Influenza split virus > age 3 19:21:12 [employer]
--- OUTSIDE RECORDS SUMMARY | 2017-07-23 10:05 | XMS REPORT | Clinical Summary ---
[...] Menopause, surgical 627.4 Active [facility] Symptomatic states associated with artificial menopause Urinary [...] TAB 1 tablet by mouth daily FLUCONAZOLE 99761687540 No Longer Active Nadir Hector MD Active BACTRIM DS 800-160 MG ORAL TABS 1 BID for 5 days SULFAMETHOXAZOLE-TRIMETHOPRIM 81746199764 No Longer Active Nadir Hector MD Active CIPRO 250 MG TAB 1 tablet by mouth twice daily CIPROFLOXACIN HCL 74047647485 No Longer Active Ro Meyer Active AMOXICILLIN 500 MG ORAL CAPS tid AMOXICILLIN 06191586070 No Longer Active Catalino Irene MD Active BACTRIM DS TABS Take 1 po BID SULFAMETHOXAZOLE- TRIMETHOPRIM TABS 06063843818 No Longer Active Pam Gomez LPN Active MACROBID 100 MG CAP 1 cap by mouth twice daily NITROFURANTOIN MONOHYD MACRO 69088589122 No Longer Active Pam Gomez LPN Active CIPRO 250 MG TAB 1 tablet by mouth twice daily CIPROFLOXACIN HCL 06301881987 No Longer Active Pam Gomez LPN Active JANUVIA 100 MG ORAL TABS 1 daily SITAGLIPTIN PHOSPHATE 17278988985 Active Nadir Hector MD Active GLUCOTROL XL 5 MG [id number] one tablet daily GLIPIZIDE 64056454404 No Longer Active Nadir Hector MD Active BACTRIM DS 800-160 MG TABS 1 po BID x 7 days SULFAMETHOXAZOLE-TRIMETHOPRIM 40388749832 No Longer Active Jamal Burrell MD Active FOSAMAX 70 MG TABS 1 po qweek. Take 30min prior to first food/drink. Avoid lying down x 1 hour. ALENDRONATE SODIUM 48363284281 Active Nadir Hector MD Active AMOXICILLIN 500 MG CAPS 2 po BID x 10 days AMOXICILLIN 34982520070 No Longer Active Nadir Hector MD Active JANUVIA 100 MG TABS 1 tablet by mouth daily SITAGLIPTIN PHOSPHATE 24607173615 No Longer Active Nadir Hector MD Active JANUVIA 100 MG TABS Take 1 tab daily SITAGLIPTIN PHOSPHATE 83106262780 No Longer Active Sharon Nuñez Active MACROBID 100 MG CAP 1 cap by mouth twice daily NITROFURANTOIN MONOHYD MACRO 45361042530 No Longer Active Crystal Fernández APRN Active MACRODANTIN 100 MG CAPS 1 capsule by mouth twice daily for seven days NITROFURANTOIN MACROCRYSTAL 00996386599 No Longer Active Ro Trey RN Active BACTRIM DS 800-160 MG TABS one tablet twice a day for seven days SULFAMETHOXAZOLE-TRIMETHOPRIM 75574545035 No Longer Active HEMANTH Griffin Active BACTRIM DS 800-160 MG TABS TAKE ONE TABLET BY MOUTH TWICE DAILY FOR 7 DAYS SULFAMETHOXAZOLE-TRIMETHOPRIM 60974134499 No Longer Active Viviana Lal RN Active CIPRO 250 MG TABS TAKE ONE TABLET BY MOUTH TWICE DAILY FOR 5 DAYS CIPROFLOXACIN HCL 10391376100 No Longer Active Viviana Lal RN Active FLEXERIL 10 MG TABS 1/2 TO 1 TABLET Q12H NEEDED CYCLOBENZAPRINE HCL 37069226309 No Longer Active Viviana Lal RN Active AMLODIPINE BESYLATE 5 MG TABS 1 1/2 daily AMLODIPINE BESYLATE 27820566734 Active Nadir Hector MD Active ONGLYZA 5 MG TABS 1 QAM SAXAGLIPTIN HCL 19323673004 No Longer Active Nadir Hector MD Active AMLODIPINE BESYLATE 5 MG TABS 1 1/2 TABLET DAILY AMLODIPINE BESYLATE 45007494055 No Longer Active Nadir Hector MD Active LORTAB 5-500 MG TABS 1 BY MOUTH Q6H NEEDED HYDROCODONE- ACETAMINOPHEN 12196803456 No Longer Active Nadir Hector MD Active ACTOS 45 MG TABS 1 QD PIOGLITAZONE HCL 54510816277 No Longer Active Nadir Hector MD Active BACTRIM DS 800-160 MG TAB 1 tab by mouth twice daily TRIMETHOPRIM-SULFAMETHOXAZOLE 78268962447 No Longer Active Nadir Hector MD Active CALCIUM + D 600-200 MG-UNIT TABS 1 TABLET TWO TIMES A DAY CALCIUM CARBONATE-VITAMIN D 55688070570 Active Ro Yang RN Active METOPROLOL SUCCINATE 25 MG [id number] 1 QAM METOPROLOL SUCCINATE 01645317401 Active Nadir Hector MD Active AMARYL 4 MG TABS 1 QD GLIMEPIRIDE 79860069267 Active Nadir Hector MD Active LOVASTATIN 40 MG TABS 1 QD LOVASTATIN 95558414493 Active Nadir Hector MD Active GLUCOPHAGE 1000 MG TABS 1 TABLET TWO TIMES A DAY METFORMIN HCL 17742685032 Active Nadir Hector MD Active MAXZIDE-25 37.5-25 MG TABS 1 QD TRIAMTERENE-HCTZ 03046547697 Active Nadir Hector MD Active ACCUPRIL 40 MG TABS 1 QD QUINAPRIL HCL 81989819505 Active Nadir Hector MD Active BACTRIM DS 800-160 MG TAB 1 tab by mouth twice daily BACTRIM DS 800-160 MG TAB TRIMETHOPRIM-SULFAMETHOXAZOLE Inactive ACTOS 45 MG TABS 1 QD ACTOS 45 MG TABS 266710 PIOGLITAZONE HCL Inactive LORTAB 5-500 MG TABS 1 BY MOUTH Q6H NEEDED LORTAB 5-500 MG TABS HYDROCODONE-ACETAMINOPHEN Inactive AMLODIPINE BESYLATE 5 MG TABS 1 1/2 TABLET DAILY AMLODIPINE BESYLATE 5 MG TABS 637206 AMLODIPINE BESYLATE Inactive ONGLYZA 5 MG TABS 1 QAM ONGLYZA 5 MG TABS SAXAGLIPTIN HCL Inactive FLEXERIL 10 MG TABS 1/2 TO 1 TABLET Q12H NEEDED FLEXERIL 10 MG TABS CYCLOBENZAPRINE HCL Inactive CIPRO 250 MG TABS TAKE ONE TABLET BY MOUTH TWICE DAILY FOR 5 DAYS CIPRO 250 MG TABS 176163 CIPROFLOXACIN HCL Inactive BACTRIM DS 800-160 MG TABS TAKE ONE TABLET BY MOUTH TWICE DAILY FOR 7 DAYS BACTRIM DS 800-160 MG TABS SULFAMETHOXAZOLE-TRIMETHOPRIM Inactive BACTRIM DS 800-160 MG TABS one tablet twice a day for seven days BACTRIM DS 800-160 MG TABS SULFAMETHOXAZOLE-TRIMETHOPRIM Inactive MACROBID 100 MG CAP 1 cap by mouth twice daily MACROBID 100 MG CAP 8072493 NITROFURANTOIN MONOHYD MACRO Inactive JANUVIA 100 MG TABS Take 1 tab daily JANUVIA 100 MG TABS SITAGLIPTIN PHOSPHATE Inactive GLUCOTROL XL 5 MG [id number] one tablet daily GLUCOTROL XL 5 MG [id number] GLIPIZIDE Inactive BACTRIM DS 800-160 MG ORAL TABS 1 BID for 5 days BACTRIM DS 800-160 MG ORAL TABS SULFAMETHOXAZOLE-TRIMETHOPRIM Inactive DIFLUCAN 150 MG TAB 1 tablet by mouth daily DIFLUCAN 150 MG TAB 559820 FLUCONAZOLE Inactive MACRODANTIN 100 MG CAPS 1 capsule by mouth twice daily for seven days MACRODANTIN 100 MG CAPS 5764770 NITROFURANTOIN MACROCRYSTAL Inactive AMOXICILLIN 500 MG CAPS 2 po BID x 10 days AMOXICILLIN 500 MG CAPS 495986 AMOXICILLIN Inactive BACTRIM DS 800-160 MG TABS 1 po BID x 7 days BACTRIM DS 800-160 MG TABS SULFAMETHOXAZOLE-TRIMETHOPRIM Inactive CIPRO 250 MG TAB 1 tablet by mouth twice daily CIPRO 250 MG TAB 991472 CIPROFLOXACIN HCL Inactive MACROBID 100 MG CAP 1 cap by mouth twice daily MACROBID 100 MG CAP 3802713 NITROFURANTOIN MONOHYD MACRO Inactive BACTRIM DS TABS Take 1 po BID BACTRIM DS TABS SULFAMETHOXAZOLE-TRIMETHOPRIM TABS Inactive AMOXICILLIN 500 MG ORAL CAPS tid AMOXICILLIN 500 MG ORAL CAPS 841810 AMOXICILLIN Inactive CIPRO 250 MG TAB 1 tablet by mouth twice daily CIPRO 250 MG TAB 664788 CIPROFLOXACIN HCL Inactive Advance Directives Directive Description Start Date PERMISSION TO SHARE Immunizations Vaccine Administration Date Value Standard Description pneumococcal immunization administered Pneumovax 23 [CVX33] pneumococcal polysaccharide vaccine, 23 valent Seasonal influenza vaccine, injectable, containing preservative, for > 3 years old (Afluria, FluLaval, Fluzone, Fluvirin, Fluarix, Agriflu(>=18 yo)) Fluzone (>3 yrs.) [[id number]] Influenza, seasonal, injectable Vital Signs Date Name [...] Panel - Chemistry sodium, serum 138 mmol/L 685-432 7604/07/02 potassium, serum 4.5 mmol/L 3.5-5.2 chloride, serum [...] HGBA1C - Chemistry cholesterol, serum 147 mg/dL 343-164 2393/08/18 triglyceride, serum, fasting 242 mg/dL 30-200 HDL cholesterol, serum 36 mg/dL 32-96 LDL cholesterol, serum 63 mg/dL 0-130 sodium, serum 137 mmol/L 387-769 8743/08/18 potassium, serum 4.7 mmol/L 3.5-5.2 chloride, serum [...] 0.2 Encounters Code Encounter Date Provider Facility CPT-03626 Level 4 Est. Patient 09:54:20 CDT Nadir Hector MD [facility] CPT-41474 Level 2 Est. Patient 18:56:33 CDT Catalino Irene MD [facility] CPT-37022 Level 4 New Patient 14:59:23 CDT Catalino Irene MD [facility] CPT-46233 Level 3 Est. Patient 16:43:04 [employer] Nadir Hector MD [facility] CPT-84230 Level 4 Est. Patient 14:21:01 [employer] Nadir Hector MD [facility] CPT-36826 Level 3 Est. Patient 16:41:34 CDT Nadir Hector MD [facility] CPT-66621 Level 4 Est. Patient 13:54:35 [employer] Nadir Hector MD [facility] CPT-07612 Level 3 Est. Patient 15:51:21 CDT Nadir Hector MD [facility] CPT-50911 Level 4 New Patient 15:58:26 CDT Catalino Irene MD [facility] CPT-44901 Level 4 Est. Patient 15:42:38 [employer] Nadir Hector MD [facility] Procedures Code Procedure Name Date Entry Date Standard Description CPT-83220 Urine Dip (Floor Use Only) 18:56:34 CDT CPT-02939 Urine Dip (Floor Use Only) 14:21:22 CDT CPT-J0561 Bicillin LA 1,200,000 u (PCN G Benzathine) 13:16:19 CDT CPT-89900 Abx/Therapy Injection 13:16:19 CDT CPT-52850 Urine Dip (Floor Use Only) 14:59:25 CDT CPT-40739 Bladder Scan 14:59:24 CDT CPT-53837 Cystoscopy 14:59:24 CDT CPT-45031 Abd single AP View 12:13:13 CDT CPT-000 Give Pneumovax 14:21:01 [employer] CPT-000 Give Appropriate Flu Vaccine 14:21:01 [employer] CPT-28626 Bone Density 08:41:23 [employer] CPT-000 Give Appropriate Flu Vaccine 13:54:35 [employer] CPT-000 Give Pneumovax 13:54:35 [employer] CPT-93909 Administration 2+ single or combination vaccines inc oral 14:01:24 [employer] CPT-64604 Administration single or combination vaccine inc oral 14 :01:24 [employer] CPT-77767 Influenza High Dose age 65+ 14:01:24 [employer] CPT-86931 Pneumovax 14:01:24 FAM[employer] CPT-46910 Venipuncture Draw Fee 10:36:48 CDT CPT-000 Give Appropriate Flu Vaccine 15:20:11 [employer] CPT-73819 Administration single or combination vaccine inc oral 15 :50:33 [employer] CPT-86793 Influenza High Dose age 65+ 15:50:33 [employer] CPT-31888 LS spine AP and Lat 15:30:05 [employer] CPT-52092 Hip comp min 2V 15:30:05 [employer] CPT-23438 Postop F/U Visit 17:28:18 CDT CPT-OV Office Visit 15:04:38 CDT CPT-09081 Bladder Scan 15:58:26 CDT CPT-93316 Cystoscopy 15:58:26 CDT CPT-OV Office Visit 16:15:09 CDT CPT-000 Give Appropriate Flu Vaccine 16:33:10 [employer] CPT-40643 Administration single or combination vaccine inc oral 19 :21:12 [employer] CPT-34970 Influenza split virus > age 3 19:21:12 FAMILY [employer]ESSOR
--- OUTSIDE RECORDS SUMMARY | 2017-07-23 10:06 | XMS REPORT | Clinical Summary ---
Author Author Admin, IMTIAZ Organization [facility] Address Unknown Phone Unavailable Allergies, [...] general medical examination at a [facility] PERIPHERAL NEUROPATHY 356.9 Active Nadir [...] Take 1 po BID SULFAMETHOXAZOLE- TRIMETHOPRIM TABS 24547771571 No Longer Active Pam Jason MILIEU MANAGER Active MACROBID 100 MG CAP 1 cap by mouth twice daily NITROFURANTOIN MONOHYD MACRO 12219959515 No Longer Active Pam Jason MILIEU MANAGER Active DIFLUCAN 150 MG TAB 1 tablet by mouth daily FLUCONAZOLE 70291359704 Active Pam Jason MILIEU MANAGER Active CIPRO 250 MG TAB 1 tablet by mouth twice daily CIPROFLOXACIN HCL 92977355097 No Longer Active Pam Jason MILIEU MANAGER Active JANUVIA 100 MG ORAL TABS 1 daily SITAGLIPTIN PHOSPHATE 40227477127 Active Nadir Hector MD Active GLUCOTROL XL 5 MG [id number] one tablet daily GLIPIZIDE 76200435564 No Longer Active Nadir Hector MD Active BACTRIM DS 800-160 MG TABS 1 po BID x 7 days SULFAMETHOXAZOLE-TRIMETHOPRIM 73224683701 No Longer Active Jamal Burrell MD Active FOSAMAX 70 MG TABS 1 po qweek. Take 30min prior to first food/drink. Avoid lying down x 1 hour. ALENDRONATE SODIUM 16238805642 Active Nadir Hector MD Active AMOXICILLIN 500 MG CAPS 2 po BID x 10 days AMOXICILLIN 58578079246 No Longer Active Nadir Hector MD Active JANUVIA 100 MG TABS 1 tablet by mouth daily SITAGLIPTIN PHOSPHATE 74338888029 No Longer Active Nadir Hector MD Active JANUVIA 100 MG TABS Take 1 tab daily SITAGLIPTIN PHOSPHATE 09816230901 No Longer Active Sharon Nuñez Active MACROBID 100 MG CAP 1 cap by mouth twice daily NITROFURANTOIN MONOHYD MACRO 79855650241 No Longer Active Crystal Fernández APRN Active MACRODANTIN 100 MG CAPS 1 capsule by mouth twice daily for seven days NITROFURANTOIN MACROCRYSTAL 49148779723 No Longer Active Ro Yang RN Active BACTRIM DS 800-160 MG TABS one tablet twice a day for seven days SULFAMETHOXAZOLE-TRIMETHOPRIM 15227230663 No Longer Active HEMANTH Griffin Active BACTRIM DS 800-160 MG TABS TAKE ONE TABLET BY MOUTH TWICE DAILY FOR 7 DAYS SULFAMETHOXAZOLE-TRIMETHOPRIM 04528455102 No Longer Active Viviana Lal RN Active CIPRO 250 MG TABS TAKE ONE TABLET BY MOUTH TWICE DAILY FOR 5 DAYS CIPROFLOXACIN HCL 05186030155 No Longer Active Viviana Lal RN Active FLEXERIL 10 MG TABS 1/2 TO 1 TABLET Q12H NEEDED CYCLOBENZAPRINE HCL 79877944174 No Longer Active Viviana Lal RN Active AMLODIPINE BESYLATE 5 MG TABS 1 1/2 daily AMLODIPINE BESYLATE 03848760674 Active Nadir Hector MD Active ONGLYZA 5 MG TABS 1 QAM SAXAGLIPTIN HCL 76675302260 No Longer Active Nadir Hector MD Active AMLODIPINE BESYLATE 5 MG TABS 1 1/2 TABLET DAILY AMLODIPINE BESYLATE 13964710157 No Longer Active Nadir Hector MD Active LORTAB 5-500 MG TABS 1 BY MOUTH Q6H NEEDED HYDROCODONE- ACETAMINOPHEN 53209610970 No Longer Active Nadir Hector MD Active ACTOS 45 MG TABS 1 QD PIOGLITAZONE HCL 30694544973 No Longer Active Nadir Hector MD Active BACTRIM DS 800-160 MG TAB 1 tab by mouth twice daily TRIMETHOPRIM-SULFAMETHOXAZOLE 94851487752 No Longer Active Nadir Hector MD Active CALCIUM + D 600-200 MG-UNIT TABS 1 TABLET TWO TIMES A DAY CALCIUM CARBONATE-VITAMIN D 53659810787 Active Ro Yang RN Active METOPROLOL SUCCINATE 25 MG [id number] 1 QAM METOPROLOL SUCCINATE 01529439863 Active Nadir Hector MD Active AMARYL 4 MG TABS 1 QD GLIMEPIRIDE 96284453752 Active Nadir Hector MD Active LOVASTATIN 40 MG TABS 1 QD LOVASTATIN 70870388054 Active Nadir Hector MD Active GLUCOPHAGE 1000 MG TABS 1 TABLET TWO TIMES A DAY METFORMIN HCL 51352394245 Active Nadir Hector MD Active MAXZIDE-25 37.5-25 MG TABS 1 QD TRIAMTERENE-HCTZ 63418628212 Active Nadir Hector MD Active ACCUPRIL 40 MG TABS 1 QD QUINAPRIL HCL 48976050971 Active Nadir Hector MD Active BACTRIM DS 800-160 MG TAB 1 tab by mouth twice daily BACTRIM DS 800-160 MG TAB TRIMETHOPRIM-SULFAMETHOXAZOLE Inactive ACTOS 45 MG TABS 1 QD ACTOS 45 MG TABS 883212 PIOGLITAZONE HCL Inactive LORTAB 5-500 MG TABS 1 BY MOUTH Q6H NEEDED LORTAB 5-500 MG TABS HYDROCODONE-ACETAMINOPHEN Inactive AMLODIPINE BESYLATE 5 MG TABS 1 1/2 TABLET DAILY AMLODIPINE BESYLATE 5 MG TABS 732965 AMLODIPINE BESYLATE Inactive ONGLYZA 5 MG TABS [...] mouth twice daily MACROBID 100 MG CAP 662895 NITROFURANTOIN MONOHYD MACRO Inactive JANUVIA 100 MG TABS Take 1 tab daily JANUVIA 100 MG TABS SITAGLIPTIN PHOSPHATE Inactive GLUCOTROL XL 5 MG [id number] one tablet daily GLUCOTROL XL 5 MG [id number] GLIPIZIDE Inactive MACRODANTIN 100 MG CAPS 1 capsule by mouth twice daily for seven days MACRODANTIN 100 MG CAPS 868868 NITROFURANTOIN MACROCRYSTAL Inactive AMOXICILLIN 500 MG CAPS 2 po BID x 10 days AMOXICILLIN 500 MG CAPS 443437 AMOXICILLIN Inactive BACTRIM DS 800-160 MG TABS 1 po BID x 7 days BACTRIM DS 800-160 MG TABS SULFAMETHOXAZOLE-TRIMETHOPRIM Inactive CIPRO 250 MG TAB 1 tablet by mouth twice daily CIPRO 250 MG TAB 999030 CIPROFLOXACIN HCL Inactive MACROBID 100 MG CAP 1 cap by mouth twice daily MACROBID 100 MG CAP 144704 NITROFURANTOIN MONOHYD MACRO Inactive BACTRIM DS TABS [...] Fluvirin, Fluarix, Agriflu(>=18 yo)) Fluzone (>3 yrs.) [[id number]] Influenza, seasonal, injectable Vital Signs Date Name [...] HGBA1C - Chemistry sodium, serum 140 mmol/L 696-738 6106/07/23 potassium, serum 4.5 mmol/L 3.5-5.2 chloride, serum [...] 0.2 Encounters Code Encounter Date Provider Facility CPT-90126 Level 4 New Patient 14:59:23 CDT Catalino Irene MD [facility] CPT-93098 Level 3 Est. Patient 16:43:04 ANIMAL CARE TECHNICIAN Nadir Hector MD [facility] CPT-17283 Level 4 Est. Patient 14:21:01 ANIMAL CARE TECHNICIAN Nadir Hectro MD [facility] CPT-41428 Level 3 Est. Patient 16:41:34 CDT Nadir Hector MD [facility] CPT-62742 Level 4 Est. Patient 13:54:35 ANIMAL CARE TECHNICIAN Nadir Hector MD [facility] CPT-04971 Level 3 Est. Patient 15:51:21 CDT Nadir Hector MD [facility] CPT-77432 Level 4 New Patient 15:58:26 CDT Catalino Irene MD [facility] CPT-90376 Level 4 Est. Patient 15:42:38 ANIMAL CARE TECHNICIAN Nadir Hector MD [facility] Procedures Code Procedure Name Date Entry Date Standard Description CPT-80815 Urine Dip (Floor Use Only) 14:59:25 CDT CPT-51632 Bladder Scan 14:59:24 CDT CPT-27177 Cystoscopy 14:59:24 CDT CPT-39523 Abd single AP View 12:13:13 CDT CPT-000 Give Pneumovax 14:21:01 ANIMAL CARE TECHNICIAN CPT-000 Give Appropriate Flu Vaccine 14:21:01 ANIMAL CARE TECHNICIAN CPT-97992 Bone Density 08:41:23 ANIMAL CARE TECHNICIAN CPT-000 Give Appropriate Flu Vaccine 13:54:35 ANIMAL CARE TECHNICIAN CPT-000 Give Pneumovax 13:54:35 ANIMAL CARE TECHNICIAN CPT-78749 Administration 2+ single or combination vaccines inc oral 14:01:24 ANIMAL CARE TECHNICIAN CPT-48211 Administration single or combination vaccine inc oral 14 :01:24 ANIMAL CARE TECHNICIAN CPT-86632 Influenza High Dose age 65+ 14:01:24 ANIMAL CARE TECHNICIAN CPT-14107 Pneumovax 14:01:24 ANIMAL CARE TECHNICIAN CPT-73489 Venipuncture Draw Fee 10:36:48 CDT CPT-000 Give Appropriate Flu Vaccine 15:20:11 ANIMAL CARE TECHNICIAN CPT-23545 Administration single or combination vaccine inc oral 15 :50:33 ANIMAL CARE TECHNICIAN CPT-85459 Influenza High Dose age 65+ 15:50:33 ANIMAL CARE TECHNICIAN CPT-50685 LS spine AP and Lat 15:30:05 ANIMAL CARE TECHNICIAN CPT-88369 Hip comp min 2V 15:30:05 ANIMAL CARE TECHNICIAN CPT-31147 Postop F/U Visit 17:28:18 CDT CPT-OV Office Visit 15:04:38 CDT CPT-79432 Bladder Scan 15:58:26 CDT CPT-79865 Cystoscopy 15:58:26 CDT CPT-OV Office Visit 16:15:09 CDT CPT-000 Give Appropriate Flu Vaccine 16:33:10 ANIMAL CARE TECHNICIAN CPT-62595 Administration single or combination vaccine inc oral 19 :21:12 ANIMAL CARE TECHNICIAN CPT-43400 Influenza split virus > age 3 19:21:12 ANIMAL CARE TECHNICIAN
--- OUTSIDE RECORDS SUMMARY | 2017-07-23 10:07 | XMS REPORT | Clinical Summary ---
Author Author Admin, IMTIAZ Organization [facility] Address Unknown Phone Unavailable Allergies, Adverse [...] MD Routine general medical examination at a [facility] facility PERIPHERAL NEUROPATHY 356.9 [...] colonic polyps UTERINE PROLAPSE 618.1 Active Catalino Ireen MD Uterine prolapse without mention of vaginal [...] Take 1 po BID SULFAMETHOXAZOLE- TRIMETHOPRIM TABS 78575566031 Active Pam Gomez LPN Active MACROBID 100 MG CAP 1 cap by mouth twice daily NITROFURANTOIN MONOHYD MACRO 39856322354 No Longer Active Pam Gomez LPN Active DIFLUCAN 150 MG TAB 1 tablet by mouth daily FLUCONAZOLE 54015589160 Active Pam Gomez LPN Active CIPRO 250 MG TAB 1 tablet by mouth twice daily CIPROFLOXACIN HCL 56607985623 No Longer Active Pam Gomez LPN Active JANUVIA 100 MG ORAL TABS 1 daily SITAGLIPTIN PHOSPHATE 23320943854 Active Nadir Hector MD Active GLUCOTROL XL 5 MG [id number] one tablet daily GLIPIZIDE 50492299981 No Longer Active Nadir Hector MD Active BACTRIM DS 800-160 MG TABS 1 po BID x 7 days SULFAMETHOXAZOLE-TRIMETHOPRIM 26288003449 No Longer Active Jamal Burrell MD Active FOSAMAX 70 MG TABS 1 po qweek. Take 30min prior to first food/drink. Avoid lying down x 1 hour. ALENDRONATE SODIUM 87788037730 Active Nadir Hector MD Active AMOXICILLIN 500 MG CAPS 2 po BID x 10 days AMOXICILLIN 82361191111 No Longer Active Nadir Hector MD Active JANUVIA 100 MG TABS 1 tablet by mouth daily SITAGLIPTIN PHOSPHATE 32484829688 No Longer Active Nadir Hector MD Active JANUVIA 100 MG TABS Take 1 tab daily SITAGLIPTIN PHOSPHATE 54127586252 No Longer Active Sharon Nuñez Active MACROBID 100 MG CAP 1 cap by mouth twice daily NITROFURANTOIN MONOHYD MACRO 26225822930 No Longer Active Crystal Fernández APRN Active MACRODANTIN 100 MG CAPS 1 capsule by mouth twice daily for seven days NITROFURANTOIN MACROCRYSTAL 80154045766 No Longer Active Ro Yang RN Active BACTRIM DS 800-160 MG TABS one tablet twice a day for seven days SULFAMETHOXAZOLE-TRIMETHOPRIM 52692077939 No Longer Active HEMANTH Griffin Active BACTRIM DS 800-160 MG TABS TAKE ONE TABLET BY MOUTH TWICE DAILY FOR 7 DAYS SULFAMETHOXAZOLE-TRIMETHOPRIM 77116613916 No Longer Active Viviana Lal RN Active CIPRO 250 MG TABS TAKE ONE TABLET BY MOUTH TWICE DAILY FOR 5 DAYS CIPROFLOXACIN HCL 90772089614 No Longer Active Viviana Lal RN Active FLEXERIL 10 MG TABS 1/2 TO 1 TABLET Q12H NEEDED CYCLOBENZAPRINE HCL 64583903672 No Longer Active Viviana Lal RN Active AMLODIPINE BESYLATE 5 MG TABS 1 1/2 daily AMLODIPINE BESYLATE 30072358014 Active Nadir Hector MD Active ONGLYZA 5 MG TABS 1 QAM SAXAGLIPTIN HCL 04585827258 No Longer Active Nadir Hector MD Active AMLODIPINE BESYLATE 5 MG TABS 1 1/2 TABLET DAILY AMLODIPINE BESYLATE 32752444736 No Longer Active Nadir Hector MD Active LORTAB 5-500 MG TABS 1 BY MOUTH Q6H NEEDED HYDROCODONE- ACETAMINOPHEN 16525994575 No Longer Active Nadir Hector MD Active ACTOS 45 MG TABS 1 QD PIOGLITAZONE HCL 75210249474 No Longer Active Nadir Hector MD Active BACTRIM DS 800-160 MG TAB 1 tab by mouth twice daily TRIMETHOPRIM-SULFAMETHOXAZOLE 06088499995 No Longer Active Nadir Hector MD Active CALCIUM + D 600-200 MG-UNIT TABS 1 TABLET TWO TIMES A DAY CALCIUM CARBONATE-VITAMIN D 06998118429 Active Ro Yang RN Active METOPROLOL SUCCINATE 25 MG [id number] 1 QAM METOPROLOL SUCCINATE 51629517584 Active Nadir Hector MD Active AMARYL 4 MG TABS 1 QD GLIMEPIRIDE 29242483377 Active Nadir Hector MD Active LOVASTATIN 40 MG TABS 1 QD LOVASTATIN 24227584152 Active Nadir Hector MD Active GLUCOPHAGE 1000 MG TABS 1 TABLET TWO TIMES A DAY METFORMIN HCL 78958076377 Active Nadir Hector MD Active MAXZIDE-25 37.5-25 MG TABS 1 QD TRIAMTERENE-HCTZ 58686750562 Active Nadir Hector MD Active ACCUPRIL 40 MG TABS 1 QD QUINAPRIL HCL 21861553108 Active Nadir Hector MD Active BACTRIM DS 800-160 MG TAB 1 tab by mouth twice daily BACTRIM DS 800-160 MG TAB TRIMETHOPRIM-SULFAMETHOXAZOLE Inactive ACTOS 45 MG TABS 1 QD ACTOS 45 MG TABS 548276 PIOGLITAZONE HCL Inactive LORTAB 5-500 MG TABS 1 BY MOUTH Q6H NEEDED LORTAB 5-500 MG TABS HYDROCODONE-ACETAMINOPHEN Inactive AMLODIPINE BESYLATE 5 MG TABS 1 1/2 TABLET DAILY AMLODIPINE BESYLATE 5 MG TABS 201984 AMLODIPINE BESYLATE Inactive ONGLYZA 5 MG TABS [...] mouth twice daily MACROBID 100 MG CAP 888389 NITROFURANTOIN MONOHYD MACRO Inactive JANUVIA 100 MG TABS Take 1 tab daily JANUVIA 100 MG TABS SITAGLIPTIN PHOSPHATE Inactive GLUCOTROL XL 5 MG [id number] one tablet daily GLUCOTROL XL 5 MG [id number] GLIPIZIDE Inactive MACRODANTIN 100 MG CAPS 1 capsule by mouth twice daily for seven days MACRODANTIN 100 MG CAPS 959173 NITROFURANTOIN MACROCRYSTAL Inactive AMOXICILLIN 500 MG CAPS 2 po BID x 10 days AMOXICILLIN 500 MG CAPS 370759 AMOXICILLIN Inactive BACTRIM DS 800-160 MG TABS 1 po BID x 7 days BACTRIM DS 800-160 MG TABS SULFAMETHOXAZOLE-TRIMETHOPRIM Inactive CIPRO 250 MG TAB 1 tablet by mouth twice daily CIPRO 250 MG TAB 19740413 CIPROFLOXACIN HCL Inactive MACROBID 100 MG CAP 1 cap by mouth twice daily MACROBID 100 MG CAP 210900 NITROFURANTOIN MONOHYD MACRO Inactive Advance Directives Directive Description Start Date PERMISSION TO SHARE Immunizations Vaccine Administration Date Value Standard Description pneumococcal immunization administered Pneumovax 23 [[id number]] pneumococcal polysaccharide vaccine, 23 valent Seasonal influenza vaccine, injectable, containing preservative, for > 3 years old (Afluria, FluLaval, Fluzone, Fluvirin, Fluarix, Agriflu(>=18 yo)) Fluzone (>3 yrs.) [[id number]] Influenza, seasonal, injectable Vital Signs Date Name [...] HGBA1C - Chemistry sodium, serum 140 mmol/L 013-181 0005/07/23 potassium, serum 4.5 mmol/L 3.5-5.2 chloride, serum [...] urine SlCloudy Clear urine color Yellow Colorless;Lightyellow;Straw;Yellow urobilinogen, urine, [...] strip Negative Negative bilirubin, urine Negative Negative Encounters Code Encounter Date Provider Facility CPT-39858 Level 3 Est. Patient 16:43:04 DANCE TEACHER Nadir Hector MD [facility] CPT-68463 Level 4 Est. Patient 14:21:01 DANCE TEACHER Nadir Hector MD [facility] CPT-01091 Level 3 Est. Patient 16:41:34 CDT Nadir Hector MD [facility] CPT-10010 Level 4 Est. Patient 13:54:35 DANCE TEACHER Nadir Hector MD [facility] CPT-18874 Level 3 Est. Patient 15:51:21 CDT Nadir Hector MD [facility] CPT-27612 Level 4 New Patient 15:58:26 CDT Catalino Irene MD [facility] CPT-09109 Level 4 Est. Patient 15:42:38 DANCE TEACHER Nadir Hector MD [facility] Procedures Code Procedure Name Date Entry Date Standard Description CPT-000 Give Pneumovax 14:21:01 DANCE TEACHER CPT-000 Give Appropriate Flu Vaccine 14:21:01 DANCE TEACHER CPT-56433 Bone Density 08:41:23 DANCE TEACHER CPT-000 Give Appropriate Flu Vaccine 13:54:35 DANCE TEACHER CPT-000 Give Pneumovax 13:54:35 DANCE TEACHER CPT-63987 Administration 2+ single or combination vaccines inc oral 14:01:24 DANCE TEACHER CPT-33544 Administration single or combination vaccine inc oral 14 :01:24 DANCE TEACHER CPT-75525 Influenza High Dose age 65+ 14:01:24 DANCE TEACHER CPT-52104 Pneumovax 14:01:24 DANCE TEACHER CPT-96330 Venipuncture Draw Fee 10:36:48 CDT CPT-000 Give Appropriate Flu Vaccine 15:20:11 DANCE TEACHER CPT-29772 Administration single or combination vaccine inc oral 15 :50:33 DANCE TEACHER CPT-53242 Influenza High Dose age 65+ 15:50:33 DANCE TEACHER CPT-96366 LS spine AP and Lat 15:30:05 DANCE TEACHER CPT-89404 Hip comp min 2V 15:30:05 DANCE TEACHER CPT-38441 Postop F/U Visit 17:28:18 CDT CPT-OV Office Visit 15:04:38 CDT CPT-96977 Bladder Scan 15:58:26 CDT CPT-22740 Cystoscopy 15:58:26 CDT CPT-OV Office Visit 16:15:09 CDT CPT-000 Give Appropriate Flu Vaccine 16:33:10 DANCE TEACHER CPT-59863 Administration single or combination vaccine inc oral 19 :21:12 DANCE TEACHER CPT-17046 Influenza split virus > age 3 19:21:12 DANCE TEACHER
--- OUTSIDE RECORDS SUMMARY | 2017-07-23 10:07 | XMS REPORT | Continuity of Care Document ---
Demographics x Preferred Language Unknown Marital Status Unknown Temple Affiliation Unknown Race Unknown Ethnic Group Unknown Author Author [facility] Organization [facility] Address Unknown Phone Unavailable Allergies Active Description Code Type Severity Reaction Onset Reported/Identified Relationship to Patient Clinical Status Yes No known drug allergies [id number] ND N/A N/A Yes NONE Food Allergy N/A N/A Yes NO NAME AVAILABLE 42926 DRUG N/ A N/A Yes No Known Drug Allergies [id number] Drug Allergy Unknown N/A 07/15/2017 Medications Medication Packaging Start Date Stop Date Route Dosage Sig ACETAMINOPHEN 325 MG PO TABS Oral 650 EVERY 4 HOURS PRN LIDOCAINE 1% BUFF W BICARB 10:1 IJ SOLN OMNI 08/28/2016 Intradermal 10 ONCE CEFTRIAXONE SODIUM-DEXTROSE 1-3.74 GM-% IV SOLR 08/28/2016 Intravenous 1 ONCE Problems Date Dx Coded Attending Type Code Diagnosis Diagnosed By 06/21/2015 AGUSTO RENTERIA E11.9 Type 2 diabetes mellitus without complications 06/21/2015 AGUSTO RENTERIA H60.92 Unspecified otitis externa, left ear 06/21/2015 AGUSTO RENTERIA N39.41 Urge incontinence 07/05/2015 AGUSTO RENTERIA R82.99 Other abnormal findings in urine 07/07/2015 VINCE VITAL E86.0 Dehydration 07/07/2015 VINCE VITAL R11.2 Nausea with vomiting, unspecified 07/08/2015 VINCE VITAL A49.9 Bacterial infection, unspecified 07/08/2015 VINCE VITAL E11.9 Type 2 diabetes mellitus without complications 07/08/2015 VINCE VITAL E78.0 Pure hypercholesterolemia 07/08/2015 VINCE VITAL E86.0 Dehydration 07/08/2015 VINCE VITAL I10 Essential (primary) hypertension 07/08/2015 VINCE VITAL M81.0 Age- related osteoporosis without current pathological fracture 07/08/2015 VINCE VITAL N39.0 Urinary tract infection, site not specified 07/08/2015 VINCE VITAL R11.2 Nausea with vomiting, unspecified 07/08/2015 VINCE VITAL Z98.89 Other specified postprocedural states 07/08/2015 VINCE VITAL A49.9 Bacterial infection, unspecified 07/08/2015 VINCE VITAL E86.0 Dehydration 07/08/2015 VINCE VITAL N39.0 Urinary tract infection, site not specified 07/08/2015 VINCE VITAL R11.2 Nausea with vomiting, unspecified 07/16/2015 AGUSTO RENTERIA E11.9 Type 2 diabetes mellitus without complications 07/16/2015 AGUSTO RENTERIA I10 Essential (primary) hypertension 07/16/2015 AGUSTO RENTERIA R82.99 Other abnormal findings in urine 07/16/2015 AGUSTO RENTERIA B95.7 Other staphylococcus as the cause of diseases classified elsewhere 07/16/2015 AGUSTO RENTERIA N76.0 Acute vaginitis 09/05/2015 AGUSTO RENTERIA N39.0 Urinary tract infection, site not specified 09/05/2015 AGUSTO RENTERIA R30.9 Painful micturition, unspecified 09/05/2015 AGUSTO RENTERIA R35.0 Frequency of micturition 09/05/2015 AGUSTO RENTERIA R82.99 Other abnormal findings in urine 09/05/2015 AGUSTO RENTERIA B96.89 Other specified bacterial agents as the cause of diseases classified elsewhere 09/05/2015 AGUSTO RENTERIA E11.69 Type 2 diabetes mellitus with other specified complication 09/05/2015 AGUSTO RENTERIA N39.0 Urinary tract infection, site not specified 09/05/2015 AGUSTO RENTERIA R60.9 Edema, unspecified 12/20/2015 AGUSTO RENTERIA E11.9 Type 2 diabetes mellitus without complications 12/20/2015 AGUSTO RENTERIA E11.9 Type 2 diabetes mellitus without complications 12/20/2015 AGUSTO RENTERIA I10 Essential (primary) hypertension 03/25/2016 AGUSTO RENTERIA E11.9 Type 2 diabetes mellitus without complications 03/25/2016 AGUSTO RENTERIA B02.9 Zoster without complications 03/25/2016 AGUSTO RENTERIA E11.9 Type 2 diabetes mellitus without complications 03/25/2016 AGUSTO RENTERIA I10 Essential (primary) hypertension 04/23/2016 AGUSTO RENTERIA R94.4 Abnormal results of kidney function studies 05/06/2016 AGUSTO RENTERIA N28.9 Disorder of kidney and ureter, unspecified 05/06/2016 AGUSTO RENTERIA R94.4 Abnormal results of kidney function studies 05/06/2016 AGUSTO RENTERIA E11.9 Type 2 diabetes mellitus without complications 06/17/2016 AGUSTO RENTERIA D64.9 Anemia, unspecified 06/17/2016 AGUSTO RENTERIA E11.9 Type 2 diabetes mellitus without complications 06/17/2016 AGUSTO RENTERIA N28.9 Disorder of kidney and ureter, unspecified 06/19/2016 AGUSTO RENTERIA D50.9 Iron deficiency anemia, unspecified 06/19/2016 AGUSTO RENTERIA E11.9 Type 2 diabetes mellitus without complications 06/19/2016 AGUSTO RENTERIA N18.9 Chronic kidney disease, unspecified 06/19/2016 AGUSTO RENTERIA Z71.2 Person consulting for explanation of examination or test findings 07/18/2016 AGUSTO RENTERIA D50.9 Iron deficiency anemia, unspecified 07/18/2016 AGUSTO RENTERIA D72.829 Elevated white blood cell count, unspecified 07/18/2016 AGUSTO RENTERIA E11.649 Type 2 diabetes mellitus with hypoglycemia without coma 07/18/2016 AGUSTO RENTERIA R53.83 Other fatigue 07/18/2016 AGUSTO RENTERIA D64.9 Anemia, unspecified 07/18/2016 AGUSTO RENTERIA D72.829 Elevated white blood cell count, unspecified 07/18/2016 AGUSTO RENTERIA R53.83 Other fatigue 07/25/2016 AGUSTO RENTERIA B96.89 Other specified bacterial agents as the cause of diseases classified elsewhere 07/25/2016 AGUSTO RENTERIA N39.0 Urinary tract infection, site not specified 07/25/2016 AGUSTO RENTERIA R05 Cough 07/25/2016 AGUSTO RENTERIA D72.829 Elevated white blood cell count, unspecified 07/25/2016 AGUSTO RENTERIA N28.9 Disorder of kidney and ureter, unspecified 07/25/2016 AGUSTO RENTERIA D72.829 Elevated white blood cell count, unspecified 07/25/2016 AGUSTO RENTERIA N28.9 Disorder of kidney and ureter, unspecified 08/01/2016 AGUSTO RENTERIA D72.829 Elevated white blood cell count, unspecified 08/01/2016 AGUSTO RENTERIA E11.9 Type 2 diabetes mellitus without complications 08/01/2016 AGUSTO RENTERIA I10 Essential (primary) hypertension 08/05/2016 AGUSTO RENTERIA D64.9 Anemia, unspecified 08/05/2016 AGUSTO RENTERIA D72.829 Elevated white blood cell count, unspecified 08/05/2016 AGUSTO RENTERIA R10.9 Unspecified abdominal pain 08/05/2016 AGUSTO RENTERIA R10.811 Right upper quadrant abdominal tenderness 08/06/2016 AGUSTO RENTERIA K57.30 Diverticulosis of large intestine without perforation or abscess without bleeding 08/06/2016 AGUSTO RENTERIA R19.09 Other intra-abdominal and pelvic swelling, mass and lump 08/15/2016 Catalino MILES F K68.9 Other disorders of retroperitoneum 09/02/2016 AGUSTO RENTERIA N15.1 Renal and perinephric abscess 09/02/2016 AGUSTO RENTERIA D64.9 Anemia, unspecified 09/02/2016 AGUSTO RENTERIA E11.9 Type 2 diabetes mellitus without complications 09/17/2016 OSWALDO RAINES F V K65.1 Peritoneal abscess (HCC) PÉREZ RAINESADOR F 09/17/2016 AGUSTO RENTERIA E11.649 Type 2 diabetes mellitus with hypoglycemia without coma 09/17/2016 AGUSTO RENTERIA I10 Essential (primary) hypertension 09/17/2016 AGUSTO RENTERIA T38.3X5A Adverse effect of insulin and oral hypoglycemic [antidiabetic] drugs, initial encounter 09/17/2016 AGUSTO RENTERIA T46.5X5A Adverse effect of other antihypertensive drugs, initial encounter 09/30/2016 ALEXANDRIA STRATTON T14.90 Injury, unspecified 12/16/2016 AGUSTO RENTERIA E11.9 Type 2 diabetes mellitus without complications 12/18/2016 AGUSTO RENTERIA E11.9 Type 2 diabetes mellitus without complications 12/18/2016 AGUSTO RENTERIA E78.5 Hyperlipidemia, unspecified 12/18/2016 AGUSTO RENTERIA I10 Essential (primary) hypertension 03/04/2017 AGUSTO RENTERIA B96.89 Other specified bacterial agents as the cause of diseases classified elsewhere 03/04/2017 AGUSTO RENTERIA N39.0 Urinary tract infection, site not specified 03/04/2017 AGUSTO RENTERIA M54.5 Low back pain 03/04/2017 AGUSTO RENTERIA R82.99 Other abnormal findings in urine 04/21/2017 AGUSTO RENTERIA E11.9 Type 2 diabetes mellitus without complications 04/21/2017 AGUSTO RENTERIA I10 Essential (primary) hypertension 04/21/2017 AGUSTO RENTERIA M54.5 Low back pain 05/13/2017 AGUSTO RENTERIA B96.89 Other specified bacterial agents as the cause of diseases classified elsewhere 05/13/2017 AGUSTO RENTERIA N39.0 Urinary tract infection, site not specified 05/13/2017 AGUSTO RENTERIA R30.0 Dysuria 06/17/2017 AGUSTO RENTERIA E11.9 Type 2 diabetes mellitus without complications 06/17/2017 AGUSTO RENTERIA N39.0 Urinary tract infection, site not specified 06/17/2017 AGUSTO RENTERIA E11.9 Type 2 diabetes mellitus without complications 06/17/2017 AGUSTO RENTERIA E78.0 Pure hypercholesterolemia 06/17/2017 AGUSTO RENTERIA E78.00 Pure hypercholesterolemia, unspecified 06/17/2017 AGUSTO RENTERIA I10 Essential (primary) hypertension 06/17/2017 AGUSTO RENTERIA N39.0 Urinary tract infection, site not specified 06/17/2017 AGUSTO RENTERIA R82.99 Other abnormal findings in urine 07/06/2017 SALTY WALTON M41.86 Other forms of scoliosis, lumbar region 07/06/2017 SALTY WALTON N28.1 Cyst of kidney, acquired 07/06/2017 SALTY WALTON N32.89 Other specified disorders of bladder 07/06/2017 SALTY WALTON R10.9 Unspecified abdominal pain 07/15/2017 ANTON ECKERT, SALTY Barros Ot T19.1XXA FOREIGN BODY IN BLADDER, INITIAL ENCOUNT 07/15/2017 ANTON ECKERT, SALTY Barros Ot Z01.818 ENCOUNTER FOR OTHER PREPROCEDURAL EXAMIN 07/17/2017 ANTON ECKERT, SALTY Barros Ot T19.1XXA FOREIGN BODY IN BLADDER, INITIAL ENCOUNT 07/17/2017 SALTY WALTON MD Ot Z01.818 ENCOUNTER FOR OTHER PREPROCEDURAL EXAMIN Procedures There is no data. Results Test Result Range CBC WITH AUTO DIFFERENTIAL - 08/28/16 07:38 BASOPHILS RELATIVE PERCENT 0.2 % 0.0-2.5 EOSINOPHILS RELATIVE PERCENT 0.7 % <=5.0 HEMATOCRIT 24.2 % 34.9-44.5 HEMOGLOBIN 7.6 g/dL 12.0-15.5 LYMPHOCYTES RELATIVE PERCENT 7.0 % 22.0-49.0 MEAN CORPUSCULAR HEMOGLOBIN 22.2 pg 26.0-34.0 MEAN CORPUSCULAR HEMOGLOBIN CONC 31.4 g/dL 31.0-37.0 MEAN CORPUSCULAR VOLUME 70.6 fL 81.6-98.3 MONOCYTES RELATIVE PERCENT 8.8 % 2.0-9.0 NEUTROPHILS RELATIVE PERCENT 83.3 % 40.0-75.0 NUCLEATED RED BLOOD CELLS 0 /100 <=0 PLATELET COUNT 690 10E9/L 150-450 RED BLOOD CELL COUNT 3.43 10E12/L 3.90-5.03 RED CELL DISTRIBUTION WIDTH 19.2 % 11.9-15.5 [id number] 14.9 10E9/L 3.5-10.5 6472815 1.04 10E9/L 0.90-2.90 0152628 1.31 10E9/L 0.30-0.90 0373419 0.11 10E9/L 0.05-0.50 6856458 12.37 10E9/L 1.70-7.00 7737939 0.03 10E9/L 0.00-0.30 9620890 0 % SCAN - 08/28/16 07:38 ANISOCYTOSIS 2+ [id number] Results confirmed by microscopic exam [id number] 2+ PROTIME-INR - 08/28/16 07:38 INR 1.11 INR PROTHROMBIN TIME 14.2 sec. 11.8-14.8 AEROBIC CULTURE - 08/28/16 09:35 [id number] Red Blood Cells observed Clindamycin >=ug/mL Erythromycin >=ug/mL Levofloxacin 4 ug/mL Tetracycline <=ug/mL Vancomycin 1 ug/mL Ciprofloxacin >=ug/mL Gentamicin <=ug/mL Tigecycline <=ug/mL Trimethoprim+Sulfamethoxazole <=ug/mL Moxifloxacin 1 ug/mL Linezolid 2 ug/mL Oxacillin <=ug/mL Rifampin <=ug/mL Daptomycin 0.25 ug/mL Doxycycline <=ug/mL FUNGUS CULTURE - 08/28/16 09:35 [id number] No fungal growth ACID FAST CULTURE - 08/28/16 09:35 5148619 No Mycobacteria species growth 1137043 No acid fast bacilli seen ANAEROBIC CULTURE - 08/28/16 09:35 [id number] No Strict Anaerobic Growth CREATININE, SERUM - 09/17/16 12:25 CREATININE 3.30 mg/dL 0.40-1.10 EGFR 14 mL/min >59 Urine Culture, Routine - 03/04/17 11:50 Urine Culture, Routine Note Urine Culture, Routine - 05/13/17 10:20 Urine Culture, Routine Note Urine Culture, Routine - 06/17/17 09:25 Urine Culture, Routine Note Capillary blood glucose measurement by glucometer (mass/volume) - 07/22/17 08: 16 Capillary blood glucose measurement by glucometer (mass/volume) 207 mg/dL 70-110 Capillary blood glucose measurement by glucometer (mass/volume) - 07/22/17 11: 04 Capillary blood glucose measurement by glucometer (mass/volume) 194 mg/dL 70-110 Encounters ACCT No. Visit Date/Time Discharge Status Pt. Type Provider Facility Loc./Unit Complaint [id number] 10/27/2014 09:55:00 10/27/2014 16:00:00 DIS Inpatient JOSÉ MIGUEL MILES [facility] OPS [id number] 10/12/2014 11:34:00 10/12/2014 11:34:00 DIS Outpatient JOSÉ MIGUEL MILES [facility] RAD [id number] 04/10/2014 09:45:00 04/10/2014 09:45:00 DIS Outpatient MARYANNE BOONE [facility] RAD [id number] 03/06/2017 13:06:00 Document Registration [id number] 08/28/2016 12:13:03 ACT Unknown [id number] 06/20/2017 19:06:00 Document Registration [id number] 07/20/2017 09:29:00 07/20/2017 10[facility]29:[id number]/20/2017 09:00:00 07/20/2017 10:00:00 [facility] [id number] 07/06/2017 08:24:00 07/06/2017 12:24:00 DIS Outpatient SALTY WALTON [id number] 06/17/2017 09:27:00 06/17/2017 10:27:00 [facility] [id number] 06/17/2017 09:15:00 06/17/2017 10:15:00 [facility] [id number] 05/13/2017 10:24:00 05/13/2017 11:24:00 [facility] [id number] 05/13/2017 10:15:00 05/13/2017 11:15:00 [facility] [id number] 04/21/2017 15:15:00 04/21/2017 16:15:00 [facility] [id number] 03/04/2017 11:49:00 03/04/2017 12:49:00 [facility] [id number] 03/04/2017 11:45:00 03/04/2017 12:45:00 [facility] [id number] 12/18/2016 11:00:00 12/18/2016 12:00:00 [facility] [id number] 12/16/2016 09:00:00 12/16/2016 10:00:00 [facility] [id number] 09/30/2016 09:00:00 09/30/2016 10:00:00 DIS LO ALEXANDRIA STRATTON [facility] OT [id number] 09/17/2016 09:00:00 09/17/2016 10:00:00 DIS FIDENCIO RENTERIA [facility] CL [id number] 09/02/2016 09:56:00 09/02/2016 10:56:00 [id number] 09/02/2016 09:45:00 09/02/2016 10:45:00 [facility] [id number] 08/15/2016 09:24:00 08/15/2016 10:24:00 DIS Catalino LIMA [facility] OT [id number] 08/06/2016 10:40:00 08/06/2016 14:40:00 DIS ZHAO [facility] [id number] 08/05/2016 14:09:00 08/05/2016 15:09:00 [facility] [id number] 08/05/2016 13:45:00 08/05/2016 14:45:00 [facility] [id number] 08/01/2016 08:30:00 08/01/2016 09:30:00 [facility] [id number] 07/25/2016 13:36:00 07/25/2016 14:36:00 [facility] [id number] 07/25/2016 13:30:00 07/25/2016 14:30:00 [facility] [id number] 07/18/2016 10:35:00 07/18/2016 11:35:00 [facility] [id number] 07/18/2016 10:00:00 07/18/2016 11:00:00 [facility] [id number] 06/19/2016 10:15:00 06/19/2016 14:15:00 [facility] [id number] 06/17/2016 08:45:00 06/17/2016 09:45:00 [facility] [id number] 05/06/2016 10:30:00 05/06/2016 14:30:00 [facility] [id number] 05/06/2016 10:34:00 05/06/2016 11:34:00 [facility] [id number] 03/25/2016 10:15:00 03/25/2016 14:15:00 [facility] [id number] 03/25/2016 10:37:00 03/25/2016 11:37:00 [facility] [id number] 12/20/2015 10:00:00 12/20/2015 14:00:00 [facility] [id number] 12/20/2015 10:38:00 12/20/2015 11:38:00 [facility] [id number] 09/05/2015 09:30:00 09/05/2015 13:30:00 [facility] [id number] 09/05/2015 09:27:00 09/05/2015 10:27:00 [facility] [id number] 07/16/2015 10:00:00 07/16/2015 14:00:00 [facility] [id number] 07/16/2015 09:49:00 07/16/2015 10:49:00 [facility] [id number] 07/07/2015 10:52:00 07/08/2015 10:19:00 [id number] 07/07/2015 10:30:00 07/07/2015 14:30:00 [facility] [id number] 07/05/2015 15:45:00 07/05/2015 19:45:00 [facility] [id number] 07/05/2015 15:45:00 07/05/2015 16:45:00 [facility] [id number] 06/21/2015 13:45:00 06/21/2015 17:45:00 DIS RY MYRA [facility] CL [id number] 08/18/2017 09:45:00 PEN Outpatient [id number] 08/29/2016 08:00:00 PEN OP [id number] 04/23/2016 09:00:00 DIS LO MYRA [facility] OT [id number] 07/30/2015 09:15:00 PEN RY [id number] 07/07/2015 12:40:00 DIS PB ZAHRAA [facility] OT [id number] 09/17/2016 11:21:17 09/17/2016 23:59:00 DIS Outpatient OSWALDO RAINES [facility] CTS [id number] 08/28/2016 07:12:35 08/28/2016 11:20:00 DIS Outpatient NATANAEL LEE [facility] [id number] 08/12/2016 14:29:01 08/12/2016 23:59:00 DIS Outpatient PROVIDER, NOTINSYSTEM_2 [facility] XRAY [id number] 08/12/2016 08:41:44 08/12/2016 14:28:00 DIS Outpatient PROVIDER, NOTINSYSTEM_2 [facility] XRAY [id number] 08/28/2016 08:57:43 Document Registration [id number] 07/22/2017 08:01:00 07/22/2017 12:47:00 DIS Outpatient SALTY WALTON MD [facility] SDC FOREIGN BODY BLADDER [id number] 07/15/2017 06:15:00 07/15/2017 14:00:00 DIS Outpatient SALTY WALTON MD [facility] PREOP FOREIGN BODY BLADDER [id number] 05/16/2017 20:07:00 Document Registration
== END 2017-07-22 12:47 | disposition home or self-care (01) ==
LOC: SDC 08:01
PROVIDERS: ATTEND Urology
DX: T19.1XXA Foreign body in bladder, initial encounter (principal); Z11.2 Encounter for screening for other bacterial diseases; E11.9 Type 2 diabetes mellitus without complications; I10 Essential (primary) hypertension; E78.00 Pure hypercholesterolemia, unspecified; Z79.899 Other long term (current) drug therapy; Z79.84 Long term (current) use of oral hypoglycemic drugs; Z87.440 Personal history of urinary (tract) infections
CPT/HCPCS: 82962; 87081

== ENCOUNTER → 2017-09-28 | Outpatient (CLI) | payer MEDICARE ==
[~2017-09-28] MED LIST changes: +IOHEXOL 350 MG/ML 100 ML (OMNIPAQUE 350) VIAL IV ONE; -METF1000 PO; +METF10002 PO; +METO-370 PO; +NITR-65 PO; +NS 250 ML (IVPB) BAG IV ONE
[2017-09-28 12:02] LABS: CREATININE SERUM 1.2 MG/DL (0.60-1.30)
--- NOTE | 2017-09-28 13:53 | Diagnostic Imaging Report ---
PROCEDURE: CT abdomen and pelvis with contrast. TECHNIQUE: Multiple contiguous axial images were obtained through the abdomen and pelvis after administration of intravenous contrast. INDICATION: Urinary tract infections. COMPARISON: None. FINDINGS: The lung bases are clear. There is a small hiatal hernia. No focal hepatic mass is seen. The gallbladder is not visualized. There is no biliary dilatation. The pancreas appears unremarkable. The spleen and adrenal glands appear normal. There is moderate bilateral hydronephrosis and hydroureter. No discrete stone is seen in the kidneys or ureters. There are also numerous bilateral renal cortical cysts. Some alveolar densities are too small to adequately characterize but are likely additional benign cysts. The bladder is decompressed. There is diffuse thickening of the bladder wall, and there is moderate soft tissue stranding surrounding the bladder suggestive of some inflammatory change. There are a couple of small stones seen within the bladder. Additionally, there appears to be a small diverticulum off the anterior bladder wall to the right of midline containing a stone measuring approximately 8 mm. There is a tiny gas bubble within the bladder which may be due to recent catheterization although gas-forming organism would be difficult to entirely exclude. Despite doing delayed imaging at 15 minutes, no contrast is seen within the bladder. There is diverticulosis without evidence of diverticulitis. The appendix appears normal. There is no free fluid or free air. The uterus appears absent. There is atherosclerosis of the abdominal aorta which appears normal in caliber. There are degenerative changes in the spine. IMPRESSION: 1. The bladder is abnormal in appearance. There is diffuse thickening of the bladder wall and there is fairly prominent probable inflammatory stranding surrounding the bladder. There are 2 small stones layering within the bladder. An additional suspected 8 mm stone within a diverticulum off the anterior bladder wall just to the right of midline. 2. A tiny focus of gas within the bladder could be due to recent catheterization; however, a gas-forming organism would be difficult to entirely exclude. Correlate clinically. 3. There is bilateral hydroureteronephrosis. No definite mass or obstructing stone is suspected. Despite a 15-minute delay sequence, no contrast is visualized within the bladder. 4. Diverticulosis without evidence of diverticulitis. Dictated by: Dictated on workstation # [id number]
== END ==
LOC: RAD 11:20
PROVIDERS: ATTEND Urology
DX: N21.0 Calculus in bladder (principal); N13.30 Unspecified hydronephrosis; N39.0 Urinary tract infection, site not specified; K57.30 Diverticulosis of large intestine without perforation or abscess without bleeding
CPT/HCPCS: 36415; 74177; 82565; 84520

== ENCOUNTER 2017-11-06 05:39 | Outpatient (CLI) | payer MEDICARE ==
[~2017-11-06] VITALS: Ht 154.9 cm; Wt 61.7 kg
[~2017-11-06 05:39] MED LIST changes: -IOHEXOL 350 MG/ML 100 ML (OMNIPAQUE 350) VIAL IV ONE; -NS 250 ML (IVPB) BAG IV ONE
[2017-11-06] MEDS ORDERED: SITA100T12 PO (10:23)
[2017-11-06] MEDS ORDERED: FERR-84 PO (10:23)
== END 2017-11-06 10:33 ==
LOC: PREOP 05:39
PROVIDERS: ATTEND Urology
DX: Z01.818 Encounter for other preprocedural examination (principal)

== ENCOUNTER 2017-11-11 06:36 | Day surgery (SDC) | payer MEDICARE ==
[~2017-11-11] VITALS: Ht 154.9 cm; Wt 61.7 kg
[~2017-11-11 06:36] MED LIST changes: +FERR-84 PO; +SITA100T12 PO
[2017-11-11] MEDS ORDERED: LACTATED RINGERS 1,000 ML IV PRN (06:41)
[2017-11-11] MEDS ORDERED: cefTRIAXone INJECTION 1,000 MG in NS (IVPB) 50 ML IV ONE (06:45)
[2017-11-11 06:55] VITALS: BP 141/75
[2017-11-11] MEDS ORDERED: CATHETER FLUSH 10 ML SYR IV PRN (07:00)
--- NOTE | 2017-11-11 07:13 | Progress Note-Pre Operative ---
Pre-Operative Progress Note H&P Reviewed The H&P was reviewed, patient examined and no changes noted. Date Seen by Provider: Nov 11, 2017 Time Seen by Provider: 07:12 Date H&P Reviewed: Nov 11, 2017 Time H&P Reviewed: 07:12 Pre-Operative Diagnosis: F.B BLADDER, BLADDER STONE, CYSTITIS AND BILATERAL HYDRONEPHROSIS SALTY WALTON MD Nov 11, 2017 7:13 am
--- NOTE | 2017-11-11 07:15 | Progress Note-Post Operative ---
Post-Operative Progess Note Surgeon (s)/Planer Hand (s) Surgeon SALTY WALTON MD Planer Hand: N/A Pre-Operative Diagnosis F.B BLADDER, BLADDER STONE, CYSTITIS AND BILATERAL HYDRONEPHROSIS Post-Operative Diagnosis SAME Procedure & Operative Findings Date of Procedure 11/11/17 Procedure Performed/Findings CYSTOSCOPY AND REMOVAL F.B AND STONES Anesthesia Type GENERAL Estimated Blood Loss Estimated blood loss (mL): N/A Specimens/Packing Specimens Removed F.B AND STONES Packing: N/A SALTY WALTON MD Nov 11, 2017 7:15 am
--- NOTE | 2017-11-11 07:16 | Discharge Inst-Urology ---
Discharge Inst-Urology Discharge Medications New, Converted, or Re-newed RX: RX on Chart Patient Instructions/Follow Up Plan Please make appointment to been seen in office in 4 weeks. Please send F.B and Stones post seen by patient, has them Increase oral fluids for 48 hours and then as needed. Diet and Activity as tolerated. If questions or concerns contact your physician Or seek help at emergency department. SALTY WALTON MD Nov 11, 2017 7:16 am
[2017-11-11] MEDS ORDERED: MIDAZOLAM 2 MG/2 ML (VERSED) VIAL ONE (07:26)
[2017-11-11] MEDS ORDERED: fentaNYL INJECTION 100 MCG/2 ML AMP ONE (07:26)
--- OUTSIDE RECORDS SUMMARY | 2017-11-11 07:26 | XMS REPORT | Clinical Summary ---
Author Author Admin, IMTIAZ Organization [facility] Address Unknown Phone Unavailable Allergies, Adverse Reactions, Alerts Allergy Name Reaction Description Start Date Severity Status Provider No Known Allergies Katarina SAXENA Conditions or Problems Problem Name Problem Code [...] Routine general medical examination at a [facility] care facility PERIPHERAL NEUROPATHY 356.9 [...] Active Nadir Hector MD Acute sinusitis, unspecified Medication List Medication Instructions Start Date Stop Date Generic Name NDC Status Provider Patient Instruction AMOXICILLIN 500 MG CAPS 2 po BID x 10 days AMOXICILLIN 48758528859 No Longer Active Nadir Hector MD Active GLUCOTROL XL 5 MG [id number] one tablet daily GLIPIZIDE 31003227354 Active Nadir Hector MD Active JANUVIA 100 MG TABS 1 tablet by mouth daily SITAGLIPTIN PHOSPHATE 63913235356 No Longer Active Nadir Hector MD Active JANUVIA 100 MG TABS Take 1 tab daily SITAGLIPTIN PHOSPHATE 15878378362 No Longer Active Sharon Nuñez Active MACROBID 100 MG CAP 1 cap by mouth twice daily NITROFURANTOIN MONOHYD MACRO 64875057099 No Longer Active Crystal Fernández APRN Active MACRODANTIN 100 MG CAPS 1 capsule by mouth twice daily for seven days NITROFURANTOIN MACROCRYSTAL 55200477230 No Longer Active Ro Yang RN Active BACTRIM DS 800-160 MG TABS one tablet twice a day for seven days SULFAMETHOXAZOLE-TRIMETHOPRIM 00382819752 No Longer Active HEMANTH Griffin Active BACTRIM DS 800-160 MG TABS TAKE ONE TABLET BY MOUTH TWICE DAILY FOR 7 DAYS SULFAMETHOXAZOLE-TRIMETHOPRIM 39366957382 No Longer Active Viviana Lal RN Active CIPRO 250 MG TABS TAKE ONE TABLET BY MOUTH TWICE DAILY FOR 5 DAYS CIPROFLOXACIN HCL 29693789954 No Longer Active Viviana Lal RN Active FLEXERIL 10 MG TABS 1/2 TO 1 TABLET Q12H NEEDED CYCLOBENZAPRINE HCL 81355710724 No Longer Active Viviana Lal RN Active AMLODIPINE BESYLATE 5 MG TABS 1 1/2 daily AMLODIPINE BESYLATE 16109665763 Active Nadir Hector MD Active ONGLYZA 5 MG TABS 1 QAM SAXAGLIPTIN HCL 42070083745 No Longer Active Nadir Hector MD Active AMLODIPINE BESYLATE 5 MG TABS 1 1/2 TABLET DAILY AMLODIPINE BESYLATE 15979428029 No Longer Active Nadir Hector MD Active LORTAB 5-500 MG TABS 1 BY MOUTH Q6H NEEDED HYDROCODONE- ACETAMINOPHEN 38637881843 No Longer Active Nadir Hector MD Active ACTOS 45 MG TABS 1 QD PIOGLITAZONE HCL 56808786114 No Longer Active Nadir Hector MD Active BACTRIM DS 800-160 MG TAB 1 tab by mouth twice daily TRIMETHOPRIM-SULFAMETHOXAZOLE 27131918800 No Longer Active Nadir Hector MD Active CALCIUM + D 600-200 MG-UNIT TABS 1 TABLET TWO TIMES A DAY CALCIUM CARBONATE-VITAMIN D 05558128984 Active oR Yang RN Active METOPROLOL SUCCINATE 25 MG [id number] 1 QAM METOPROLOL SUCCINATE 39489310460 Active Nadir Hector MD Active AMARYL 4 MG TABS 1 QD GLIMEPIRIDE 44055197859 Active Nadir Hector MD Active LOVASTATIN 40 MG TABS 1 QD LOVASTATIN 41784179155 Active Nadir Hector MD Active GLUCOPHAGE 1000 MG TABS 1 TABLET TWO TIMES A DAY METFORMIN HCL 30687267040 Active Nadir Hector MD Active MAXZIDE-25 37.5-25 MG TABS 1 QD TRIAMTERENE-HCTZ 02687640385 Active Nadir Hector MD Active ACCUPRIL 40 MG TABS 1 QD QUINAPRIL HCL 49795985789 Active Nadir Hector MD Active BACTRIM DS 800-160 MG TAB 1 tab by mouth twice daily BACTRIM DS 800-160 MG TAB TRIMETHOPRIM-SULFAMETHOXAZOLE Inactive ACTOS 45 MG TABS 1 QD ACTOS 45 MG TABS 960411 PIOGLITAZONE HCL Inactive LORTAB 5-500 MG TABS 1 BY MOUTH Q6H NEEDED LORTAB 5-500 MG TABS HYDROCODONE-ACETAMINOPHEN Inactive AMLODIPINE BESYLATE 5 MG TABS 1 1/2 TABLET DAILY AMLODIPINE BESYLATE 5 MG TABS 376114 AMLODIPINE BESYLATE Inactive ONGLYZA 5 MG TABS 1 QAM ONGLYZA 5 MG TABS SAXAGLIPTIN HCL Inactive FLEXERIL 10 MG TABS 1/2 TO 1 TABLET Q12H NEEDED FLEXERIL 10 MG TABS CYCLOBENZAPRINE HCL Inactive CIPRO 250 MG TABS TAKE ONE TABLET BY MOUTH TWICE DAILY FOR 5 DAYS CIPRO 250 MG TABS 965115 CIPROFLOXACIN HCL Inactive BACTRIM DS 800-160 MG TABS TAKE ONE TABLET BY MOUTH TWICE DAILY FOR 7 DAYS BACTRIM DS 800-160 MG TABS SULFAMETHOXAZOLE-TRIMETHOPRIM Inactive BACTRIM DS 800-160 MG TABS one tablet twice a day for seven days BACTRIM DS 800-160 MG TABS SULFAMETHOXAZOLE-TRIMETHOPRIM Inactive MACROBID 100 MG CAP 1 cap by mouth twice daily MACROBID 100 MG CAP 150896 NITROFURANTOIN MONOHYD MACRO Inactive JANUVIA 100 MG TABS Take 1 tab daily JANUVIA 100 MG TABS SITAGLIPTIN PHOSPHATE Inactive MACRODANTIN 100 MG CAPS 1 capsule by mouth twice daily for seven days MACRODANTIN 100 MG CAPS 127582 NITROFURANTOIN MACROCRYSTAL Inactive AMOXICILLIN 500 MG CAPS 2 po BID x 10 days AMOXICILLIN 500 MG CAPS 493483 AMOXICILLIN Inactive Advance Directives Directive Description Start Date PERMISSION TO SHARE Immunizations Vaccine Administration Date Value Standard Description pneumococcal immunization administered Pneumovax 23 [CVX33] pneumococcal polysaccharide vaccine, 23 valent Seasonal influenza vaccine, injectable, containing preservative, for > 3 years old (Afluria, FluLaval, Fluzone, Fluvirin, Fluarix, Agriflu(>=18 yo)) Fluzone (>3 yrs.) [VVL954] Influenza, seasonal, injectable Vital Signs Date Name Value Unit Range Description blood pressure, diastolic - 8462-4 82 mm[Hg] BP tyler blood pressure, systolic - 8480-6 155 mm[Hg] BP sys height E&M - 8302-2 62 [in_us] Bdy height pulse rate E&M - 8867-4 105 /min Heart rate temperature E&M 99.0 [degF] Body temperature weight E&M - 3141-9 166.25 [lb_av] Weight Measured blood pressure, diastolic - 8462-4 89 mm[Hg] BP tyler blood pressure, systolic - 8480-6 144 mm[Hg] BP sys height E&M - 8302-2 62 [in_us] Bdy height pulse rate E&M - 8867-4 81 /min Heart rate temperature E&M 98.9 [degF] Body temperature weight E&M - 3141-9 164.13 [lb_av] Weight Measured Diagnostic Results Date Name Value Unit Range Description Lab Report: Basic Metabolic Panel - Chemistry sodium, serum 139 mmol/L 804-224 3907/09/05 potassium, serum 4.1 mmol/L 3.5-5.2 chloride, serum 103 mmol/L 98-107 carbon dioxide, venous blood 29.8 mmol/L 21.0-32.0 blood glucose 81 mg/dL 65-110 calcium, serum 8.9 mg/dL 8.5-10.1 urea nitrogen, blood 16 mg/dL 7-18 creatinine, serum 1.10 mg/dL 0.60-1.30 Lab Report: CBC, Basic Metabolic Panel, HGBA1C, Lipid Panel - Chemistry sodium, serum 137 mmol/L 606-436 2395/01/09 potassium, serum 4.3 mmol/L 3.5-5.2 chloride, serum 99 mmol/L 98-107 carbon dioxide, venous blood 28.4 mmol/L 21.0-32.0 blood glucose 131 mg/dL 65-110 calcium, serum 9.7 mg/dL 8.5-10.1 urea nitrogen, blood 19 mg/dL 7-18 creatinine, serum 0.80 mg/dL 0.60-1.30 hemoglobin A1C, blood, as % of total hemoglobin 7.0 % 4.3-6.0 cholesterol, serum 156 mg/dL 706-503 6793/01/09 triglyceride, serum, fasting 168 mg/dL 30-200 HDL cholesterol, serum 43 mg/dL 32-96 LDL cholesterol, serum 79 mg/dL 0-130 Lab Report: CBC, Basic Metabolic Panel, HGBA1C, Lipid Panel - Hematology leukocyte count, blood 8.4 10^3/MM^3 10*3/mm3 4.6-10.2 erythrocyte (RBC) count 4.43 10^6/MM^3 10*6/mm3 4.04-5.48 hemoglobin, blood 14.1 g/dL 12.0-16.0 hematocrit, blood 42.3 % 36.0-46.0 mean corpuscular volume, RBC 96 fL 80-97 mean corpuscular hemoglobin, RBC 31.8 pg 27.0-31.2 mean corpuscular hemoglobin concentration, RBC 33.2 G/DL % 31.8- 35.4 red blood cell distribution width 13.3 % 11.6-14.8 platelet count 316 10^3/MM^3 10*3/mm3 142-424 Lab Report: Comp. Metabolic Panel, HGBA1C - Chemistry sodium, serum 140 mmol/L 034-933 8861/07/23 potassium, serum 4.5 mmol/L 3.5-5.2 chloride, serum [...] A1C, blood, as % of total hemoglobin 7.6 % 4.3-6.0 hemoglobin A1C, blood, as % of total hemoglobin 7.2 % 4.3-6.0 Lab Report: MICROALBUMIN - Chemistry albumin/creatinine ratio, urine 30 - 300 mg/g mg/g{creat} 0-29 Lab Report: MICROALBUMIN - Lab microalbumin, urine 80 0-19 Office Visit: Medication check/refills - Chemistry cholesterol, target level 200 mg/dL triglyceride, target level 200 mg/dL HDL cholesterol, serum, target level 35 mg/dL LDL target level 100 mg/dL home glucose monitor utilized No Encounters Code Encounter Date Provider Facility CPT-31007 Level 3 Est. Patient 16:41:34 CDT Nadir Hector MD [facility] CPT-16285 Level 4 Est. Patient 13:54:35 RIB CUTTER Nadir Hector MD [facility] CPT-05705 Level 3 Est. Patient 15:51:21 CDT Nadir Hector MD [facility] CPT-24515 Level 4 New Patient 15:58:26 CDT Catalino Irene MD [facility] CPT-51835 Level 4 Est. Patient 15:42:38 RIB CUTTER Nadir Hector MD [facility] Procedures Code Procedure Name Date Entry Date Standard Description CPT-000 Give Appropriate Flu Vaccine 13:54:35 RIB CUTTER CPT-000 Give Pneumovax 13:54:35 RIB CUTTER CPT-33334 Administration 2+ single or combination vaccines inc oral 14:01:24 RIB CUTTER CPT-65364 Administration single or combination vaccine inc oral 14 :01:24 RIB CUTTER CPT-84908 Influenza High Dose age 65+ 14:01:24 RIB CUTTER CPT-86556 Pneumovax 14:01:24 RIB CUTTER CPT-68785 Venipuncture Draw Fee 10:36:48 CDT CPT-000 Give Appropriate Flu Vaccine 15:20:11 RIB CUTTER CPT-51734 Administration single or combination vaccine inc oral 15 :50:33 RIB CUTTER CPT-61215 Influenza High Dose age 65+ 15:50:33 RIB CUTTER CPT-87891 LS spine AP and Lat 15:30:05 RIB CUTTER CPT-59180 Hip comp min 2V 15:30:05 RIB CUTTER CPT-15265 Postop F/U Visit 17:28:18 CDT CPT-OV Office Visit 15:04:38 CDT CPT-65861 Bladder Scan 15:58:26 CDT CPT-38033 Cystoscopy 15:58:26 CDT CPT-OV Office Visit 16:15:09 CDT CPT-000 Give Appropriate Flu Vaccine 16:33:10 RIB CUTTER CPT-55130 Administration single or combination vaccine inc oral 19 :21:12 RIB CUTTER CPT-59156 Influenza split virus > age 3 19:21:12 RIB CUTTER
[2017-11-11] MEDS ORDERED: ROCURONIUM 10 MG/ML 5 ML SYRINGE IV ONE (07:27)
[2017-11-11] MEDS ORDERED: SEVOFLURANE (ULTANE) 15 ML INHAL SOLN ONE (07:27)
[2017-11-11] MEDS ORDERED: ONDANSETRON 4 MG/2 ML (SDV) Z0FRAN ONE (07:27)
[2017-11-11] MEDS ORDERED: proPOfol 200 MG/20 ML (DIPRIVAN) VIAL IV ONE (07:27)
[2017-11-11] MEDS ORDERED: LIDOCAINE PF 2% 5 ML (XYLOCAINE) VIAL ONE (07:27)
[2017-11-11] MEDS ORDERED: NEOSTIGMINE 1 MG/ML 5 ML SYRINGE ONE ×2 (07:27→10:00)
[2017-11-11] MEDS ORDERED: GLYCOPYRROLATE 0.2 MG/ML (ROBINUL) 2 ML VIAL ONE ×2 (07:27→10:00)
--- OUTSIDE RECORDS SUMMARY | 2017-11-11 07:27 | XMS REPORT | Clinical Summary ---
[...] 2 po BID x 10 days AMOXICILLIN 20336992987 No Longer Active Nadir Hector MD Active GLUCOTROL XL 5 MG [id number] one tablet daily GLIPIZIDE 51202413024 Active Nadir Hector MD Active JANUVIA 100 MG TABS 1 tablet by mouth daily SITAGLIPTIN PHOSPHATE 27955236262 No Longer Active Nadir Hector MD Active JANUVIA 100 MG TABS Take 1 tab daily SITAGLIPTIN PHOSPHATE 58636289416 No Longer Active Sharon Nuñez Active MACROBID 100 MG CAP 1 cap by mouth twice daily NITROFURANTOIN MONOHYD MACRO 16237285307 No Longer Active Crystal Fernández APRN Active MACRODANTIN 100 MG CAPS 1 capsule by mouth twice daily for seven days NITROFURANTOIN MACROCRYSTAL 08443830481 No Longer Active Ro Yang RN Active BACTRIM DS 800-160 MG TABS one tablet twice a day for seven days SULFAMETHOXAZOLE-TRIMETHOPRIM 50243082505 No Longer Active HEMANTH Griffin Active BACTRIM DS 800-160 MG TABS TAKE ONE TABLET BY MOUTH TWICE DAILY FOR 7 DAYS SULFAMETHOXAZOLE-TRIMETHOPRIM 55698029976 No Longer Active Viviana Lal RN Active CIPRO 250 MG TABS TAKE ONE TABLET BY MOUTH TWICE DAILY FOR 5 DAYS CIPROFLOXACIN HCL 13402711246 No Longer Active Viviana Lal RN Active FLEXERIL 10 MG TABS 1/2 TO 1 TABLET Q12H NEEDED CYCLOBENZAPRINE HCL 77738007615 No Longer Active Viviana Lal RN Active AMLODIPINE BESYLATE 5 MG TABS 1 1/2 daily AMLODIPINE BESYLATE 10137911853 Active Nadir Hector MD Active ONGLYZA 5 MG TABS 1 QAM SAXAGLIPTIN HCL 15231052015 No Longer Active Nadir Hector MD Active AMLODIPINE BESYLATE 5 MG TABS 1 1/2 TABLET DAILY AMLODIPINE BESYLATE 02093516732 No Longer Active Nadir Hector MD Active LORTAB 5-500 MG TABS 1 BY MOUTH Q6H NEEDED HYDROCODONE- ACETAMINOPHEN 12611699644 No Longer Active Nadir Hector MD Active ACTOS 45 MG TABS 1 QD PIOGLITAZONE HCL 58315144990 No Longer Active Nadir Hector MD Active BACTRIM DS 800-160 MG TAB 1 tab by mouth twice daily TRIMETHOPRIM-SULFAMETHOXAZOLE 70863077778 No Longer Active Nadir Hector MD Active CALCIUM + D 600-200 MG-UNIT TABS 1 TABLET TWO TIMES A DAY CALCIUM CARBONATE-VITAMIN D 36413183486 Active Ro Yang RN Active METOPROLOL SUCCINATE 25 MG [id number] 1 QAM METOPROLOL SUCCINATE 04193936975 Active Nadir Hector MD Active AMARYL 4 MG TABS 1 QD GLIMEPIRIDE 58608533099 Active Nadir Hector MD Active LOVASTATIN 40 MG TABS 1 QD LOVASTATIN 98863273842 Active Nadir Hector MD Active GLUCOPHAGE 1000 MG TABS 1 TABLET TWO TIMES A DAY METFORMIN HCL 36354825164 Active Nadir Hector MD Active MAXZIDE-25 37.5-25 MG TABS 1 QD TRIAMTERENE-HCTZ 80859143918 Active Nadir Hector MD Active ACCUPRIL 40 MG TABS 1 QD QUINAPRIL HCL 64778285743 Active Nadir Hector MD Active BACTRIM DS 800-160 MG TAB 1 tab by mouth twice daily BACTRIM DS 800-160 MG TAB TRIMETHOPRIM-SULFAMETHOXAZOLE Inactive ACTOS 45 MG TABS 1 QD ACTOS 45 MG TABS 327232 PIOGLITAZONE HCL Inactive LORTAB 5-500 MG TABS 1 BY MOUTH Q6H NEEDED LORTAB 5-500 MG TABS HYDROCODONE-ACETAMINOPHEN Inactive AMLODIPINE BESYLATE 5 MG TABS 1 1/2 TABLET DAILY AMLODIPINE BESYLATE 5 MG TABS 211270 AMLODIPINE BESYLATE Inactive ONGLYZA 5 MG TABS 1 QAM ONGLYZA 5 MG TABS SAXAGLIPTIN HCL Inactive FLEXERIL 10 MG TABS 1/2 TO 1 TABLET Q12H NEEDED FLEXERIL 10 MG TABS CYCLOBENZAPRINE HCL Inactive CIPRO 250 MG TABS TAKE ONE TABLET BY MOUTH TWICE DAILY FOR 5 DAYS CIPRO 250 MG TABS 677703 CIPROFLOXACIN HCL Inactive BACTRIM DS 800-160 MG TABS TAKE ONE TABLET BY MOUTH TWICE DAILY FOR 7 DAYS BACTRIM DS 800-160 MG TABS SULFAMETHOXAZOLE-TRIMETHOPRIM Inactive BACTRIM DS 800-160 MG TABS one tablet twice a day for seven days BACTRIM DS 800-160 MG TABS SULFAMETHOXAZOLE-TRIMETHOPRIM Inactive MACROBID 100 MG CAP 1 cap by mouth twice daily MACROBID 100 MG CAP 201739 NITROFURANTOIN MONOHYD MACRO Inactive JANUVIA 100 MG TABS Take 1 tab daily JANUVIA 100 MG TABS SITAGLIPTIN PHOSPHATE Inactive MACRODANTIN 100 MG CAPS 1 capsule by mouth twice daily for seven days MACRODANTIN 100 MG CAPS 049892 NITROFURANTOIN MACROCRYSTAL Inactive AMOXICILLIN 500 MG CAPS 2 po BID x 10 days AMOXICILLIN 500 MG CAPS 022727 AMOXICILLIN Inactive Advance Directives Directive Description Start Date PERMISSION TO SHARE Immunizations Vaccine Administration Date Value Standard Description pneumococcal immunization administered Pneumovax 23 [CVX33] pneumococcal polysaccharide vaccine, 23 valent Seasonal influenza vaccine, injectable, containing preservative, for > 3 years old (Afluria, FluLaval, Fluzone, Fluvirin, Fluarix, Agriflu(>=18 yo)) Fluzone (>3 yrs.) [DNM116] Influenza, seasonal, injectable Vital Signs Date Name Value Unit Range Description blood pressure, diastolic 82 mm[Hg] BP tyler blood pressure, systolic 155 mm[Hg] BP sys height E&M 62 [in_us] Bdy height pulse rate E&M 105 /min Heart rate temperature E&M 99.0 [degF] Body temperature weight E&M 166.25 [lb_av] Weight Measured blood pressure, diastolic 89 mm[Hg] BP tyler blood pressure, systolic 144 mm[Hg] BP sys height E&M 62 [in_us] Bdy height pulse rate E&M 81 /min Heart rate temperature E&M 98.9 [degF] Body temperature weight E&M 164.13 [lb_av] Weight Measured Diagnostic Results Date Name Value Unit Range Description Lab Report: CBC, Basic Metabolic Panel, HGBA1C, Lipid Panel - Chemistry sodium, serum 137 mmol/L 380-691 7018/01/09 potassium, serum 4.3 mmol/L 3.5-5.2 chloride, serum 99 mmol/L 98-107 carbon dioxide, venous blood 28.4 mmol/L 21.0-32.0 blood glucose 131 mg/dL 65-110 calcium, serum 9.7 mg/dL 8.5-10.1 urea nitrogen, blood 19 mg/dL 7-18 creatinine, serum 0.80 mg/dL 0.60-1.30 hemoglobin A1C, blood, as % of total hemoglobin 7.0 % 4.3-6.0 cholesterol, serum 156 mg/dL 408-174 8601/01/09 triglyceride, serum, fasting 168 mg/dL 30-200 HDL cholesterol, serum 43 mg/dL 32-96 LDL cholesterol, serum 79 mg/dL 0-130 Lab Report: CBC, Basic Metabolic Panel, HGBA1C, Lipid Panel - Hematology mean corpuscular hemoglobin, RBC 31.8 pg 27.0-31.2 mean corpuscular hemoglobin concentration, RBC 33.2 G/DL % 31.8- 35.4 red blood cell distribution width 13.3 % 11.6-14.8 platelet count 316 10^3/MM^3 10*3/mm3 818-874 0934/01/09 mean corpuscular volume, RBC 96 fL 80-97 hematocrit, blood 42.3 % 36.0-46.0 hemoglobin, blood 14.1 g/dL 12.0-16.0 erythrocyte (RBC) count 4.43 10^6/MM^3 10*6/mm3 4.04-5.48 leukocyte count, blood 8.4 10^3/MM^3 10*3/mm3 4.6-10.2 Lab Report: Comp. Metabolic Panel, HGBA1C - Chemistry sodium, serum 140 mmol/L 618-228 0060/07/23 potassium, serum 4.5 mmol/L 3.5-5.2 chloride, serum [...] % of total hemoglobin 7.6 % 4.3-6.0 Lab Report: MICROALBUMIN - Chemistry [...] No Encounters Code Encounter Date Provider Facility CPT-06861 Level 3 Est. Patient 16:41:34 CDT Nadir Hector MD [facility] CPT-26950 Level 4 Est. Patient 13:54:35 RECOOPERER Nadir Hector MD [facility] CPT-63303 Level 3 Est. Patient 15:51:21 CDT Nadir Hector MD [facility] CPT-36665 Level 4 New Patient 15:58:26 CDT Catalino Irene MD [facility] CPT-55194 Level 4 Est. Patient 15:42:38 RECOOPERER Nadir Hector MD [facility] Procedures Code Procedure Name Date Entry Date Standard Description CPT-000 Give Appropriate Flu Vaccine 13:54:35 RECOOPERER CPT-000 Give Pneumovax 13:54:35 RECOOPERER CPT-41997 Administration 2+ single or combination vaccines inc oral 14:01:24 RECOOPERER CPT-96046 Administration single or combination vaccine inc oral 14 :01:24 RECOOPERER CPT-73722 Influenza High Dose age 65+ 14:01:24 RECOOPERER CPT-51793 Pneumovax 14:01:24 RECOOPERER CPT-91730 Venipuncture Draw Fee 10:36:48 CDT CPT-000 Give Appropriate Flu Vaccine 15:20:11 RECOOPERER CPT-66668 Administration single or combination vaccine inc oral 15 :50:33 RECOOPERER CPT-66807 Influenza High Dose age 65+ 15:50:33 RECOOPERER CPT-80040 LS spine AP and Lat 15:30:05 RECOOPERER CPT-81442 Hip comp min 2V 15:30:05 RECOOPERER CPT-66909 Postop F/U Visit 17:28:18 CDT CPT-OV Office Visit 15:04:38 CDT CPT-84996 Bladder Scan 15:58:26 CDT CPT-75241 Cystoscopy 15:58:26 CDT CPT-OV Office Visit 16:15:09 CDT CPT-000 Give Appropriate Flu Vaccine 16:33:10 RECOOPERER CPT-96594 Administration single or combination vaccine inc oral 19 :21:12 RECOOPERER CPT-85757 Influenza split virus > age 3 19:21:12 RECOOPERER
--- OUTSIDE RECORDS SUMMARY | 2017-11-11 07:27 | XMS REPORT | Clinical Summary ---
Author Author Admin, MITIAZ Organization [facility] Address Unknown Phone Unavailable Allergies, Adverse Reactions, Alerts Allergy Name Reaction Description Start Date Severity Status Provider No Known Allergies Lluvialiliana Lyons Conditions or Problems Problem Name Problem Code [...] MD Routine general medical examination at a [facility] care facility PERIPHERAL NEUROPATHY 356.9 [...] Generic Name NDC Status Provider Patient Instruction FOSAMAX 70 MG TABS 1 po qweek. Take 30min prior to first food/drink. Avoid lying down x 1 hour. ALENDRONATE SODIUM [id number] Active Nadir Hector MD Active AMOXICILLIN 500 MG CAPS 2 po BID x 10 days AMOXICILLIN 52625545798 No Longer Active Nadir Hector MD Active GLUCOTROL XL 5 MG [id number] one tablet daily GLIPIZIDE 40308030566 Active Nadir Hector MD Active JANUVIA 100 MG TABS 1 tablet by mouth daily SITAGLIPTIN PHOSPHATE 49221203820 No Longer Active Nadir Hector MD Active JANUVIA 100 MG TABS Take 1 tab daily SITAGLIPTIN PHOSPHATE 99912475528 No Longer Active Sharon Nuñez Active MACROBID 100 MG CAP 1 cap by mouth twice daily NITROFURANTOIN MONOHYD MACRO 54711895481 No Longer Active Crystal Fernández APRN Active MACRODANTIN 100 MG CAPS 1 capsule by mouth twice daily for seven days NITROFURANTOIN MACROCRYSTAL 88642031994 No Longer Active Ro Trey RN Active BACTRIM DS 800-160 MG TABS one tablet twice a day for seven days SULFAMETHOXAZOLE-TRIMETHOPRIM 79223307873 No Longer Active HEMANTH Griffin Active BACTRIM DS 800-160 MG TABS TAKE ONE TABLET BY MOUTH TWICE DAILY FOR 7 DAYS SULFAMETHOXAZOLE-TRIMETHOPRIM 47207070305 No Longer Active Viviana Lal RN Active CIPRO 250 MG TABS TAKE ONE TABLET BY MOUTH TWICE DAILY FOR 5 DAYS CIPROFLOXACIN HCL 99745043388 No Longer Active Viviana Lal RN Active FLEXERIL 10 MG TABS 1/2 TO 1 TABLET Q12H NEEDED CYCLOBENZAPRINE HCL 45106698167 No Longer Active Viviana Lal RN Active AMLODIPINE BESYLATE 5 MG TABS 1 1/2 daily AMLODIPINE BESYLATE 65828638600 Active Nadir Hector MD Active ONGLYZA 5 MG TABS 1 QAM SAXAGLIPTIN HCL 36331676387 No Longer Active Nadir Hector MD Active AMLODIPINE BESYLATE 5 MG TABS 1 1/2 TABLET DAILY AMLODIPINE BESYLATE 74438086500 No Longer Active Nadir Hector MD Active LORTAB 5-500 MG TABS 1 BY MOUTH Q6H NEEDED HYDROCODONE- ACETAMINOPHEN 42643996085 No Longer Active Nadir Hector MD Active ACTOS 45 MG TABS 1 QD PIOGLITAZONE HCL 87012412886 No Longer Active Nadir Hector MD Active BACTRIM DS 800-160 MG TAB 1 tab by mouth twice daily TRIMETHOPRIM-SULFAMETHOXAZOLE 22339262269 No Longer Active Nadir Hector MD Active CALCIUM + D 600-200 MG-UNIT TABS 1 TABLET TWO TIMES A DAY CALCIUM CARBONATE-VITAMIN D 26822962510 Active Ro Yang RN Active METOPROLOL SUCCINATE 25 MG [id number] 1 QAM METOPROLOL SUCCINATE 10506096679 Active Nadir Hector MD Active AMARYL 4 MG TABS 1 QD GLIMEPIRIDE 96995627331 Active Nadir Hector MD Active LOVASTATIN 40 MG TABS 1 QD LOVASTATIN 71373808206 Active Nadir Hector MD Active GLUCOPHAGE 1000 MG TABS 1 TABLET TWO TIMES A DAY METFORMIN HCL 82570061027 Active Nadir Hector MD Active MAXZIDE-25 37.5-25 MG TABS 1 QD TRIAMTERENE-HCTZ 57737933983 Active Nadir Hector MD Active ACCUPRIL 40 MG TABS 1 QD QUINAPRIL HCL 38579164692 Active Nadir Hector MD Active BACTRIM DS 800-160 MG TAB 1 tab by mouth twice daily BACTRIM DS 800-160 MG TAB TRIMETHOPRIM-SULFAMETHOXAZOLE Inactive ACTOS 45 MG TABS 1 QD ACTOS 45 MG TABS 985557 PIOGLITAZONE HCL Inactive LORTAB 5-500 MG TABS 1 BY MOUTH Q6H NEEDED LORTAB 5-500 MG TABS HYDROCODONE-ACETAMINOPHEN Inactive AMLODIPINE BESYLATE 5 MG TABS 1 1/2 TABLET DAILY AMLODIPINE BESYLATE 5 MG TABS 255718 AMLODIPINE BESYLATE Inactive ONGLYZA 5 MG TABS 1 QAM ONGLYZA 5 MG TABS SAXAGLIPTIN HCL Inactive FLEXERIL 10 MG TABS 1/2 TO 1 TABLET Q12H NEEDED FLEXERIL 10 MG TABS CYCLOBENZAPRINE HCL Inactive CIPRO 250 MG TABS TAKE ONE TABLET BY MOUTH TWICE DAILY FOR 5 DAYS CIPRO 250 MG TABS 867934 CIPROFLOXACIN HCL Inactive BACTRIM DS 800-160 MG TABS TAKE ONE TABLET BY MOUTH TWICE DAILY FOR 7 DAYS BACTRIM DS 800-160 MG TABS SULFAMETHOXAZOLE-TRIMETHOPRIM Inactive BACTRIM DS 800-160 MG TABS one tablet twice a day for seven days BACTRIM DS 800-160 MG TABS SULFAMETHOXAZOLE-TRIMETHOPRIM Inactive MACROBID 100 MG CAP 1 cap by mouth twice daily MACROBID 100 MG CAP 529814 NITROFURANTOIN MONOHYD MACRO Inactive JANUVIA 100 MG TABS Take 1 tab daily JANUVIA 100 MG TABS SITAGLIPTIN PHOSPHATE Inactive MACRODANTIN 100 MG CAPS 1 capsule by mouth twice daily for seven days MACRODANTIN 100 MG CAPS 384911 NITROFURANTOIN MACROCRYSTAL Inactive AMOXICILLIN 500 MG CAPS 2 po BID x 10 days AMOXICILLIN 500 MG CAPS 227980 AMOXICILLIN Inactive Advance Directives Directive Description Start Date PERMISSION TO SHARE Immunizations Vaccine Administration Date Value Standard Description pneumococcal immunization administered Pneumovax 23 [CVX33] pneumococcal polysaccharide vaccine, 23 valent Seasonal influenza vaccine, injectable, containing preservative, for > 3 years old (Afluria, FluLaval, Fluzone, Fluvirin, Fluarix, Agriflu(>=18 yo)) Fluzone (>3 yrs.) [[id number]] Influenza, seasonal, injectable Vital Signs Date Name Value Unit Range Description blood pressure, diastolic 89 mm[Hg] BP tyler blood pressure, systolic 158 mm[Hg] BP sys pulse rate E&M 89 /min Heart rate temperature E&M 98.2 [degF] Body temperature weight E&M 157 [lb_av] Weight Measured blood pressure, diastolic 82 mm[Hg] BP tyler [...] Panel - Chemistry sodium, serum 137 mmol/L 517-499 3159/01/09 potassium, serum 4.3 mmol/L 3.5-5.2 chloride, serum 99 mmol/L 98-107 carbon dioxide, venous blood 28.4 mmol/L 21.0-32.0 blood glucose 131 mg/dL 65-110 calcium, serum 9.7 mg/dL 8.5-10.1 urea nitrogen, blood 19 mg/dL 7-18 creatinine, serum 0.80 mg/dL 0.60-1.30 hemoglobin A1C, blood, as % of total hemoglobin 7.0 % 4.3-6.0 cholesterol, serum 156 mg/dL 219-662 9123/01/09 triglyceride, serum, fasting 168 mg/dL 30-200 HDL [...] HGBA1C - Chemistry sodium, serum 140 mmol/L 559-181 4881/07/23 potassium, serum 4.5 mmol/L 3.5-5.2 chloride, serum [...] No Encounters Code Encounter Date Provider Facility CPT-37548 Level 4 Est. Patient 14:21:01 PRODUCTION SOLDERER Nadir Hector MD [facility] CPT-95006 Level 3 Est. Patient 16:41:34 CDT Nadir Hector MD [facility] CPT-40664 Level 4 Est. Patient 13:54:35 PRODUCTION SOLDERER Nadir Hector MD [facility] CPT-73583 Level 3 Est. Patient 15:51:21 CDT Nadir Hector MD [facility] CPT-68464 Level 4 New Patient 15:58:26 CDT Catalino Irene MD [facility] CPT-35598 Level 4 Est. Patient 15:42:38 PRODUCTION SOLDERER Nadir Hetcor MD [facility] Procedures Code Procedure Name Date Entry Date Standard Description CPT-95955 Bone Density 08:41:23 PRODUCTION SOLDERER CPT-000 Give Appropriate Flu Vaccine 13:54:35 PRODUCTION SOLDERER CPT-000 Give Pneumovax 13:54:35 PRODUCTION SOLDERER CPT-09350 Administration 2+ single or combination vaccines inc oral 14:01:24 PRODUCTION SOLDERER CPT-39266 Administration single or combination vaccine inc oral 14 :01:24 PRODUCTION SOLDERER CPT-20426 Influenza High Dose age 65+ 14:01:24 PRODUCTION SOLDERER CPT-40922 Pneumovax 14:01:24 PRODUCTION SOLDERER CPT-70397 Venipuncture Draw Fee 10:36:48 CDT CPT-000 Give Appropriate Flu Vaccine 15:20:11 PRODUCTION SOLDERER CPT-66906 Administration single or combination vaccine inc oral 15 :50:33 PRODUCTION SOLDERER CPT-10888 Influenza High Dose age 65+ 15:50:33 PRODUCTION SOLDERER CPT-47024 LS spine AP and Lat 15:30:05 PRODUCTION SOLDERER CPT-19220 Hip comp min 2V 15:30:05 PRODUCTION SOLDERER CPT-40805 Postop F/U Visit 17:28:18 CDT CPT-OV Office Visit 15:04:38 CDT CPT-98578 Bladder Scan 15:58:26 CDT CPT-64023 Cystoscopy 15:58:26 CDT CPT-OV Office Visit 16:15:09 CDT CPT-000 Give Appropriate Flu Vaccine 16:33:10 PRODUCTION SOLDERER CPT-05921 Administration single or combination vaccine inc oral 19 :21:12 PRODUCTION SOLDERER CPT-82659 Influenza split virus > age 3 19:21:12 PRODUCTION SOLDERER
--- OUTSIDE RECORDS SUMMARY | 2017-11-11 07:28 | XMS REPORT | Clinical Summary ---
Author Author Admin, IMTIAZ Organization [facility] Address Unknown Phone Allergies, Adverse Reactions, Alerts Allergy Name Reaction [...] 2 po BID x 10 days AMOXICILLIN 96258395715 No Longer Active Nadir Hector MD Active GLUCOTROL XL 5 MG [id number] one tablet daily GLIPIZIDE 79303673856 Active Nadir Hector MD Active JANUVIA 100 MG TABS 1 tablet by mouth daily SITAGLIPTIN PHOSPHATE 13516222320 No Longer Active Nadir Hector MD Active JANUVIA 100 MG TABS Take 1 tab daily SITAGLIPTIN PHOSPHATE 29945342235 No Longer Active Sharon Nuñez Active MACROBID 100 MG CAP 1 cap by mouth twice daily NITROFURANTOIN MONOHYD MACRO 32644888963 No Longer Active Crystal Fernández APRN Active MACRODANTIN 100 MG CAPS 1 capsule by mouth twice daily for seven days NITROFURANTOIN MACROCRYSTAL 15581631581 No Longer Active Ro Yang RN Active BACTRIM DS 800-160 MG TABS one tablet twice a day for seven days SULFAMETHOXAZOLE-TRIMETHOPRIM 05665862619 No Longer Active Sancho Camejo Active BACTRIM DS 800-160 MG TABS TAKE ONE TABLET BY MOUTH TWICE DAILY FOR 7 DAYS SULFAMETHOXAZOLE-TRIMETHOPRIM 96895865627 No Longer Active Viviana Lal RN Active CIPRO 250 MG TABS TAKE ONE TABLET BY MOUTH TWICE DAILY FOR 5 DAYS CIPROFLOXACIN HCL 59208442639 No Longer Active Viviana Lal RN Active FLEXERIL 10 MG TABS 1/2 TO 1 TABLET Q12H NEEDED CYCLOBENZAPRINE HCL 38558398832 No Longer Active Viviana Lal RN Active AMLODIPINE BESYLATE 5 MG TABS 1 1/2 daily AMLODIPINE BESYLATE 64683105187 Active Nadir Hector MD Active ONGLYZA 5 MG TABS 1 QAM SAXAGLIPTIN HCL 60618210365 No Longer Active Nadir Hector MD Active AMLODIPINE BESYLATE 5 MG TABS 1 1/2 TABLET DAILY AMLODIPINE BESYLATE 45925840297 No Longer Active Nadir Hector MD Active LORTAB 5-500 MG TABS 1 BY MOUTH Q6H NEEDED HYDROCODONE- ACETAMINOPHEN 36319694257 No Longer Active Nadir Hector MD Active ACTOS 45 MG TABS 1 QD PIOGLITAZONE HCL 84387547142 No Longer Active Nadir Hector MD Active BACTRIM DS 800-160 MG TAB 1 tab by mouth twice daily TRIMETHOPRIM-SULFAMETHOXAZOLE 04467749260 No Longer Active Nadir Hector MD Active CALCIUM + D 600-200 MG-UNIT TABS 1 TABLET TWO TIMES A DAY CALCIUM CARBONATE-VITAMIN D 08826719967 Active Ro Yang RN Active METOPROLOL SUCCINATE 25 MG [id number] 1 QAM METOPROLOL SUCCINATE 86548164789 Active Nadir Hector MD Active AMARYL 4 MG TABS 1 QD GLIMEPIRIDE 75696597582 Active Nadir Hector MD Active LOVASTATIN 40 MG TABS 1 QD LOVASTATIN 06211115559 Active Nadir Hector MD Active GLUCOPHAGE 1000 MG TABS 1 TABLET TWO TIMES A DAY METFORMIN HCL 72101387439 Active Nadir Hector MD Active MAXZIDE-25 37.5-25 MG TABS 1 QD TRIAMTERENE-HCTZ 79862225984 Active Nadir Hector MD Active ACCUPRIL 40 MG TABS 1 QD QUINAPRIL HCL 81114353316 Active Nadir Hector MD Active BACTRIM DS 800-160 MG TAB 1 tab by mouth twice daily BACTRIM DS 800-160 MG TAB TRIMETHOPRIM-SULFAMETHOXAZOLE Inactive ACTOS 45 MG TABS 1 QD ACTOS 45 MG TABS 694547 PIOGLITAZONE HCL Inactive LORTAB 5-500 MG TABS 1 BY MOUTH Q6H NEEDED LORTAB 5-500 MG TABS HYDROCODONE-ACETAMINOPHEN Inactive AMLODIPINE BESYLATE 5 MG TABS 1 1/2 TABLET DAILY AMLODIPINE BESYLATE 5 MG TABS 797155 AMLODIPINE BESYLATE Inactive ONGLYZA 5 MG TABS 1 QAM ONGLYZA 5 MG TABS SAXAGLIPTIN HCL Inactive FLEXERIL 10 MG TABS 1/2 TO 1 TABLET Q12H NEEDED FLEXERIL 10 MG TABS CYCLOBENZAPRINE HCL Inactive CIPRO 250 MG TABS TAKE ONE TABLET BY MOUTH TWICE DAILY FOR 5 DAYS CIPRO 250 MG TABS 707671 CIPROFLOXACIN HCL Inactive BACTRIM DS 800-160 MG TABS TAKE ONE TABLET BY MOUTH TWICE DAILY FOR 7 DAYS BACTRIM DS 800-160 MG TABS SULFAMETHOXAZOLE-TRIMETHOPRIM Inactive BACTRIM DS 800-160 MG TABS one tablet twice a day for seven days BACTRIM DS 800-160 MG TABS SULFAMETHOXAZOLE-TRIMETHOPRIM Inactive MACROBID 100 MG CAP 1 cap by mouth twice daily MACROBID 100 MG CAP 874822 NITROFURANTOIN MONOHYD MACRO Inactive JANUVIA 100 MG TABS Take 1 tab daily JANUVIA 100 MG TABS SITAGLIPTIN PHOSPHATE Inactive MACRODANTIN 100 MG CAPS 1 capsule by mouth twice daily for seven days MACRODANTIN 100 MG CAPS 170931 NITROFURANTOIN MACROCRYSTAL Inactive AMOXICILLIN 500 MG CAPS 2 po BID x 10 days AMOXICILLIN 500 MG CAPS 665174 AMOXICILLIN Inactive Advance Directives Directive Description Start Date PERMISSION TO SHARE Immunizations Vaccine Administration Date Value Standard Description pneumococcal immunization administered Pneumovax 23 [CVX33] pneumococcal polysaccharide vaccine, 23 valent Seasonal influenza vaccine, injectable, containing preservative, for > 3 years old (Afluria, FluLaval, Fluzone, Fluvirin, Fluarix, Agriflu(>=18 yo)) Fluzone (>3 yrs.) [QTV634] Influenza, seasonal, injectable Vital Signs Date Name [...] temperature weight E&M 164.13 [lb_av] Weight Measured blood pressure, diastolic 93 mm[Hg] BP tyler blood pressure, systolic 183 mm[Hg] BP sys height E&M 62 [in_us] Bdy height pulse rate E&M 92 /min Heart rate temperature E&M 98.0 [degF] Body temperature weight E&M 166.38 [lb_av] Weight Measured Diagnostic Results Date Name Value Unit Range Description Lab Report: Basic Metabolic Panel - Chemistry sodium, serum 138 mmol/L 103-700 3057/06/05 potassium, serum 4.6 mmol/L 3.5-5.2 chloride, serum 103 mmol/L 98-107 carbon dioxide, venous blood 24.9 mmol/L 21.0-32.0 blood glucose 85 mg/dL 65-110 calcium, serum 9.1 mg/dL 8.5-10.1 urea nitrogen, blood 17 mg/dL 7-18 creatinine, serum 0.90 mg/dL 0.60-1.30 sodium, serum 139 mmol/L 942-626 6974/09/05 potassium, serum 4.1 mmol/L 3.5-5.2 chloride, serum 103 mmol/L 98-107 carbon dioxide, venous blood 29.8 mmol/L 21.0-32.0 blood glucose 81 mg/dL 65-110 calcium, serum 8.9 mg/dL 8.5-10.1 urea nitrogen, blood 16 mg/dL 7-18 creatinine, serum 1.10 mg/dL 0.60-1.30 Lab Report: CBC, Basic Metabolic Panel, HGBA1C, Lipid Panel - Chemistry sodium, serum 137 mmol/L 180-936 9898/01/09 potassium, serum 4.3 mmol/L 3.5-5.2 chloride, serum 99 mmol/L 98-107 carbon dioxide, venous blood 28.4 mmol/L 21.0-32.0 blood glucose 131 mg/dL 65-110 calcium, serum 9.7 mg/dL 8.5-10.1 urea nitrogen, blood 19 mg/dL 7-18 creatinine, serum 0.80 mg/dL 0.60-1.30 hemoglobin A1C, blood, as % of total hemoglobin 7.0 % 4.3-6.0 cholesterol, serum 156 mg/dL 471-420 7348/01/09 triglyceride, serum, fasting 168 mg/dL 30-200 HDL [...] count 316 10^3/MM^3 10*3/mm3 142-424 Lab Report: HGBA1C - Chemistry hemoglobin A1C, blood, as % of total hemoglobin 7.2 % 4.3-6.0 hemoglobin A1C, blood, as % of total hemoglobin 7.6 % 4.3-6.0 hemoglobin A1C, blood, as % of total hemoglobin 7.3 % 4.3-6.0 Lab Report: MICROALBUMIN - Chemistry albumin/creatinine ratio, urine 30 - 300 mg/g mg/g{creat} 0-29 Lab Report: MICROALBUMIN - Lab microalbumin, urine 80 0-19 Office Visit: Medication check/refills - Chemistry home glucose monitor utilized No LDL target level 100 mg/dL HDL cholesterol, serum, target level 35 mg/dL triglyceride, target level 200 mg/dL cholesterol, target level 200 mg/dL Office Visit: Yearly Exam - Chemistry cholesterol, target level 200 mg/dL triglyceride, target level 200 mg/dL HDL cholesterol, serum, target level 35 mg/dL LDL target level 100 mg/dL home glucose monitor utilized Yes Encounters Code Encounter Date Provider Facility CPT-63875 Level 3 Est. Patient 16:41:34 CDT Nadir Hector MD [facility] CPT-06858 Level 4 Est. Patient 13:54:35 TRUST OPERATIONS ASSISTANT Nadir Hector MD [facility] CPT-69562 Level 3 Est. Patient 15:51:21 CDT Nadir Hector MD [facility] CPT-83704 Level 4 New Patient 15:58:26 CDT Catalino Irene MD [facility] CPT-99633 Level 4 Est. Patient 15:42:38 TRUST OPERATIONS ASSISTANT Nadir Hector MD [facility] Procedures Code Procedure Name Date Entry Date Standard Description CPT-36567 Administration 2+ single or combination vaccines inc oral 14:01:24 TRUST OPERATIONS ASSISTANT CPT-68762 Administration single or combination vaccine inc oral 14 :01:24 TRUST OPERATIONS ASSISTANT CPT-31065 Influenza High Dose age 65+ 14:01:24 TRUST OPERATIONS ASSISTANT CPT-74418 Pneumovax 14:01:24 TRUST OPERATIONS ASSISTANT CPT-93278 Venipuncture Draw Fee 10:36:48 CDT CPT-000 Give Appropriate Flu Vaccine 15:20:11 TRUST OPERATIONS ASSISTANT CPT-26711 Administration single or combination vaccine inc oral 15 :50:33 TRUST OPERATIONS ASSISTANT CPT-75937 Influenza High Dose age 65+ 15:50:33 TRUST OPERATIONS ASSISTANT CPT-10702 LS spine AP and Lat 15:30:05 TRUST OPERATIONS ASSISTANT CPT-63803 Hip comp min 2V 15:30:05 TRUST OPERATIONS ASSISTANT CPT-67321 Postop F/U Visit 17:28:18 CDT CPT-OV Office Visit 15:04:38 CDT CPT-87604 Bladder Scan 15:58:26 CDT CPT-27225 Cystoscopy 15:58:26 CDT CPT-OV Office Visit 16:15:09 CDT CPT-000 Give Appropriate Flu Vaccine 16:33:10 TRUST OPERATIONS ASSISTANT CPT-39290 Administration single or combination vaccine inc oral 19 :21:12 TRUST OPERATIONS ASSISTANT CPT-24939 Influenza split virus > age 3 19:21:12 TRUST OPERATIONS ASSISTANT
--- OUTSIDE RECORDS SUMMARY | 2017-11-11 07:28 | XMS REPORT | Clinical Summary ---
Author Author Admin, IMTIAZ Organization [facility] Address Unknown Phone Unavailable Allergies, Adverse [...] MD Routine general medical examination at a [facility] care facility PERIPHERAL NEUROPATHY [...] 2 po BID x 10 days AMOXICILLIN 89380696376 No Longer Active Nadir Hector MD Active GLUCOTROL XL 5 MG [id number] one tablet daily GLIPIZIDE 66482082776 Active Nadir Hector MD Active JANUVIA 100 MG TABS 1 tablet by mouth daily SITAGLIPTIN PHOSPHATE 14427279321 No Longer Active Nadir Hector MD Active JANUVIA 100 MG TABS Take 1 tab daily SITAGLIPTIN PHOSPHATE 90924929465 No Longer Active Sharon Nuñez Active MACROBID 100 MG CAP 1 cap by mouth twice daily NITROFURANTOIN MONOHYD MACRO 98667902319 No Longer Active Crystal Fernández APRN Active MACRODANTIN 100 MG CAPS 1 capsule by mouth twice daily for seven days NITROFURANTOIN MACROCRYSTAL 40231080849 No Longer Active Ro Yang RN Active BACTRIM DS 800-160 MG TABS one tablet twice a day for seven days SULFAMETHOXAZOLE-TRIMETHOPRIM 72224634855 No Longer Active HEMANTH Griffin Active BACTRIM DS 800-160 MG TABS TAKE ONE TABLET BY MOUTH TWICE DAILY FOR 7 DAYS SULFAMETHOXAZOLE-TRIMETHOPRIM 25861509984 No Longer Active Viviana Lal RN Active CIPRO 250 MG TABS TAKE ONE TABLET BY MOUTH TWICE DAILY FOR 5 DAYS CIPROFLOXACIN HCL 56689643651 No Longer Active Viviana Lal RN Active FLEXERIL 10 MG TABS 1/2 TO 1 TABLET Q12H NEEDED CYCLOBENZAPRINE HCL 88629717874 No Longer Active Viviana Lal RN Active AMLODIPINE BESYLATE 5 MG TABS 1 1/2 daily AMLODIPINE BESYLATE 47938182080 Active Neyda Forte APRN Active ONGLYZA 5 MG TABS 1 QAM SAXAGLIPTIN HCL 93986648506 No Longer Active Nadir Hector MD Active AMLODIPINE BESYLATE 5 MG TABS 1 1/2 TABLET DAILY AMLODIPINE BESYLATE 80021607426 No Longer Active Nadir Hector MD Active LORTAB 5-500 MG TABS 1 BY MOUTH Q6H NEEDED HYDROCODONE- ACETAMINOPHEN 79907959041 No Longer Active Nadir Hector MD Active ACTOS 45 MG TABS 1 QD PIOGLITAZONE HCL 60021313452 No Longer Active Nadir Hector MD Active BACTRIM DS 800-160 MG TAB 1 tab by mouth twice daily TRIMETHOPRIM-SULFAMETHOXAZOLE 91413762774 No Longer Active Nadir Hector MD Active CALCIUM + D 600-200 MG-UNIT TABS 1 TABLET TWO TIMES A DAY CALCIUM CARBONATE-VITAMIN D 48368331635 Active Ro Yang RN Active METOPROLOL SUCCINATE 25 MG [id number] 1 QAM METOPROLOL SUCCINATE 77658269341 Active Neyda Forte APRN Active AMARYL 4 MG TABS 1 QD GLIMEPIRIDE 55333858043 Active Nadir Hector MD Active LOVASTATIN 40 MG TABS 1 QD LOVASTATIN 75723654649 Active Neyda Forte APRN Active GLUCOPHAGE 1000 MG TABS 1 TABLET TWO TIMES A DAY METFORMIN HCL 96903860876 Active Neyda Forte APRN Active MAXZIDE-25 37.5-25 MG TABS 1 QD TRIAMTERENE-HCTZ 68021028614 Active Nadir Hector MD Active ACCUPRIL 40 MG TABS 1 QD QUINAPRIL HCL 24237221129 Active Neyda Forte APRN Active BACTRIM DS 800-160 MG TAB 1 tab by mouth twice daily BACTRIM DS 800-160 MG TAB TRIMETHOPRIM-SULFAMETHOXAZOLE Inactive ACTOS 45 MG TABS 1 QD ACTOS 45 MG TABS 509428 PIOGLITAZONE HCL Inactive LORTAB 5-500 MG TABS 1 BY MOUTH Q6H NEEDED LORTAB 5-500 MG TABS HYDROCODONE-ACETAMINOPHEN Inactive AMLODIPINE BESYLATE 5 MG TABS 1 1/2 TABLET DAILY AMLODIPINE BESYLATE 5 MG TABS 849733 AMLODIPINE BESYLATE Inactive ONGLYZA 5 MG TABS 1 QAM ONGLYZA 5 MG TABS SAXAGLIPTIN HCL Inactive FLEXERIL 10 MG TABS 1/2 TO 1 TABLET Q12H NEEDED FLEXERIL 10 MG TABS CYCLOBENZAPRINE HCL Inactive CIPRO 250 MG TABS TAKE ONE TABLET BY MOUTH TWICE DAILY FOR 5 DAYS CIPRO 250 MG TABS 876884 CIPROFLOXACIN HCL Inactive BACTRIM DS 800-160 MG TABS TAKE ONE TABLET BY MOUTH TWICE DAILY FOR 7 DAYS BACTRIM DS 800-160 MG TABS SULFAMETHOXAZOLE-TRIMETHOPRIM Inactive BACTRIM DS 800-160 MG TABS one tablet twice a day for seven days BACTRIM DS 800-160 MG TABS SULFAMETHOXAZOLE-TRIMETHOPRIM Inactive MACROBID 100 MG CAP 1 cap by mouth twice daily MACROBID 100 MG CAP 884694 NITROFURANTOIN MONOHYD MACRO Inactive JANUVIA 100 MG TABS Take 1 tab daily JANUVIA 100 MG TABS SITAGLIPTIN PHOSPHATE Inactive MACRODANTIN 100 MG CAPS 1 capsule by mouth twice daily for seven days MACRODANTIN 100 MG CAPS 623559 NITROFURANTOIN MACROCRYSTAL Inactive AMOXICILLIN 500 MG CAPS 2 po BID x 10 days AMOXICILLIN 500 MG CAPS 796682 AMOXICILLIN Inactive Advance Directives Directive Description Start Date PERMISSION TO SHARE Immunizations Vaccine Administration Date Value Standard Description pneumococcal immunization administered Pneumovax 23 [CVX33] pneumococcal polysaccharide vaccine, 23 valent Seasonal influenza vaccine, injectable, containing preservative, for > 3 years old (Afluria, FluLaval, Fluzone, Fluvirin, Fluarix, Agriflu(>=18 yo)) Fluzone (>3 yrs.) [[id number]] Influenza, seasonal, injectable Vital Signs Date Name [...] Panel - Chemistry sodium, serum 137 mmol/L 449-672 3466/01/09 potassium, serum 4.3 mmol/L 3.5-5.2 chloride, serum 99 mmol/L 98-107 carbon dioxide, venous blood 28.4 mmol/L 21.0-32.0 blood glucose 131 mg/dL 65-110 calcium, serum 9.7 mg/dL 8.5-10.1 urea nitrogen, blood 19 mg/dL 7-18 creatinine, serum 0.80 mg/dL 0.60-1.30 hemoglobin A1C, blood, as % of total hemoglobin 7.0 % 4.3-6.0 cholesterol, serum 156 mg/dL 148-765 4272/01/09 triglyceride, serum, fasting 168 mg/dL 30-200 HDL cholesterol, serum 43 mg/dL 32-96 LDL cholesterol, serum 79 mg/dL 0-130 Lab Report: CBC, Basic Metabolic Panel, HGBA1C, Lipid Panel - Hematology mean corpuscular hemoglobin, RBC 31.8 pg 27.0-31.2 mean corpuscular hemoglobin concentration, RBC 33.2 G/DL % 31.8- 35.4 red blood cell distribution width 13.3 % 11.6-14.8 platelet count 316 10^3/MM^3 10*3/mm3 337-008 7042/01/09 mean corpuscular volume, RBC 96 fL 80-97 hematocrit, blood 42.3 % 36.0-46.0 hemoglobin, blood 14.1 g/dL 12.0-16.0 erythrocyte (RBC) count 4.43 10^6/MM^3 10*6/mm3 4.04-5.48 leukocyte count, blood 8.4 10^3/MM^3 10*3/mm3 4.6-10.2 Lab Report: Comp. Metabolic Panel, HGBA1C - Chemistry sodium, serum 140 mmol/L 616-512 5483/07/23 creatinine, serum 0.80 mg/dL 0.60-1.30 alanine aminotransferase (SGPT), serum 34 U/L 12-78 aspartate aminotransferase (SGOT), serum 18 U/L 15-37 alkaline phosphatase, serum 133 U/L 50-136 calcium, serum 9.4 mg/dL 8.5-10.1 bilirubin, serum, total 0.20 mg/dL 0.00-1.00 hemoglobin A1C, blood, as % of total hemoglobin 7.2 % 4.3-6.0 potassium, serum 4.5 mmol/L 3.5-5.2 chloride, serum 104 mmol/L 98-107 carbon dioxide, venous blood 30.0 mmol/L 21.0-32.0 blood glucose 151 mg/dL 65-110 urea nitrogen, blood 19 mg/dL 7-18 Lab Report: HGBA1C - Chemistry hemoglobin A1C, [...] No Encounters Code Encounter Date Provider Facility CPT-06946 Level 3 Est. Patient 16:41:34 CDT Nadir Hector MD [facility] CPT-39196 Level 4 Est. 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 Patient 15:51:21 CDT Nadir Hector MD [facility] CPT-61111 Level 4 New Patient 15:58:26 CDT Catalino Irnee MD [facility] CPT-43121 Level 4 Est. Patient 15:42:38 [employer] Nadir Hector MD [facility] Procedures Code Procedure Name Date Entry Date Standard Description CPT-000 Give Appropriate Flu Vaccine 13:54:35 [employer] CPT-000 Give Pneumovax 13:54:35 [employer] CPT-20533 Administration 2+ single or combination vaccines inc oral 14:01:24 [employer] CPT-41838 Administration single or combination vaccine inc oral 14 :01:24 [employer] CPT-06625 Influenza High Dose age 65+ 14:01:24 [employer] CPT-88019 Pneumovax 14:01:24 [employer] CPT-60610 Venipuncture Draw Fee 10:36:48 CDT CPT-000 Give Appropriate Flu Vaccine 15:20:11 [employer] CPT-51209 Administration single or combination vaccine inc oral 15 :50:33 [employer] CPT-41722 Influenza High Dose age 65+ 15:50:33 [employer]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
--- OUTSIDE RECORDS SUMMARY | 2017-11-11 07:29 | XMS REPORT | Clinical Summary ---
Author Author Admin, IMTIAZ Organization [facility] Address Unknown Phone Unavailable Allergies, Adverse [...] 2 po BID x 10 days AMOXICILLIN 28349870597 No Longer Active Nadir Hector MD Active GLUCOTROL XL 5 MG [id number] one tablet daily GLIPIZIDE 87393794090 Active Nadir Hector MD Active JANUVIA 100 MG TABS 1 tablet by mouth daily SITAGLIPTIN PHOSPHATE 18875154677 No Longer Active Nadir Hector MD Active JANUVIA 100 MG TABS Take 1 tab daily SITAGLIPTIN PHOSPHATE 92579042375 No Longer Active Sharon Nuñez Active MACROBID 100 MG CAP 1 cap by mouth twice daily NITROFURANTOIN MONOHYD MACRO 26272908081 No Longer Active Crystal Fernández APRN Active MACRODANTIN 100 MG CAPS 1 capsule by mouth twice daily for seven days NITROFURANTOIN MACROCRYSTAL 05067951989 No Longer Active Ro Yang RN Active BACTRIM DS 800-160 MG TABS one tablet twice a day for seven days SULFAMETHOXAZOLE-TRIMETHOPRIM 79975616791 No Longer Active HEMANTH Griffin Active BACTRIM DS 800-160 MG TABS TAKE ONE TABLET BY MOUTH TWICE DAILY FOR 7 DAYS SULFAMETHOXAZOLE-TRIMETHOPRIM 46891721120 No Longer Active Viviana Lal RN Active CIPRO 250 MG TABS TAKE ONE TABLET BY MOUTH TWICE DAILY FOR 5 DAYS CIPROFLOXACIN HCL 25197969382 No Longer Active Viviana Lal RN Active FLEXERIL 10 MG TABS 1/2 TO 1 TABLET Q12H NEEDED CYCLOBENZAPRINE HCL 54314311700 No Longer Active Viviana Lal RN Active AMLODIPINE BESYLATE 5 MG TABS 1 1/2 daily AMLODIPINE BESYLATE 08610196605 Active Nadir Hector MD Active ONGLYZA 5 MG TABS 1 QAM SAXAGLIPTIN HCL 44893167764 No Longer Active Nadir Hector MD Active AMLODIPINE BESYLATE 5 MG TABS 1 1/2 TABLET DAILY AMLODIPINE BESYLATE 70472629664 No Longer Active Nadir Hector MD Active LORTAB 5-500 MG TABS 1 BY MOUTH Q6H NEEDED HYDROCODONE- ACETAMINOPHEN 02009847344 No Longer Active Nadir Hector MD Active ACTOS 45 MG TABS 1 QD PIOGLITAZONE HCL 36374134127 No Longer Active Nadir Hector MD Active BACTRIM DS 800-160 MG TAB 1 tab by mouth twice daily TRIMETHOPRIM-SULFAMETHOXAZOLE 29826080018 No Longer Active Nadir Hector MD Active CALCIUM + D 600-200 MG-UNIT TABS 1 TABLET TWO TIMES A DAY CALCIUM CARBONATE-VITAMIN D 50793389833 Active Ro Yang RN Active METOPROLOL SUCCINATE 25 MG [id number] 1 QAM METOPROLOL SUCCINATE 06401693616 Active Nadir Hector MD Active AMARYL 4 MG TABS 1 QD GLIMEPIRIDE 84700409716 Active Nadir Hector MD Active LOVASTATIN 40 MG TABS 1 QD LOVASTATIN 69596831608 Active Nadir Hector MD Active GLUCOPHAGE 1000 MG TABS 1 TABLET TWO TIMES A DAY METFORMIN HCL 89361510341 Active Nadir Hector MD Active MAXZIDE-25 37.5-25 MG TABS 1 QD TRIAMTERENE-HCTZ 00354729858 Active Nadir Hector MD Active ACCUPRIL 40 MG TABS 1 QD QUINAPRIL HCL 53169535835 Active Nadir Hector MD Active BACTRIM DS 800-160 MG TAB 1 tab by mouth twice daily BACTRIM DS 800-160 MG TAB TRIMETHOPRIM-SULFAMETHOXAZOLE Inactive ACTOS 45 MG TABS 1 QD ACTOS 45 MG TABS 577679 PIOGLITAZONE HCL Inactive LORTAB 5-500 MG TABS 1 BY MOUTH Q6H NEEDED LORTAB 5-500 MG TABS HYDROCODONE-ACETAMINOPHEN Inactive AMLODIPINE BESYLATE 5 MG TABS 1 1/2 TABLET DAILY AMLODIPINE BESYLATE 5 MG TABS 805436 AMLODIPINE BESYLATE Inactive ONGLYZA 5 MG TABS 1 QAM ONGLYZA 5 MG TABS SAXAGLIPTIN HCL Inactive FLEXERIL 10 MG TABS 1/2 TO 1 TABLET Q12H NEEDED FLEXERIL 10 MG TABS CYCLOBENZAPRINE HCL Inactive CIPRO 250 MG TABS TAKE ONE TABLET BY MOUTH TWICE DAILY FOR 5 DAYS CIPRO 250 MG TABS 242114 CIPROFLOXACIN HCL Inactive BACTRIM DS 800-160 MG TABS TAKE ONE TABLET BY MOUTH TWICE DAILY FOR 7 DAYS BACTRIM DS 800-160 MG TABS SULFAMETHOXAZOLE-TRIMETHOPRIM Inactive BACTRIM DS 800-160 MG TABS one tablet twice a day for seven days BACTRIM DS 800-160 MG TABS SULFAMETHOXAZOLE-TRIMETHOPRIM Inactive MACROBID 100 MG CAP 1 cap by mouth twice daily MACROBID 100 MG CAP 545893 NITROFURANTOIN MONOHYD MACRO Inactive JANUVIA 100 MG TABS Take 1 tab daily JANUVIA 100 MG TABS SITAGLIPTIN PHOSPHATE Inactive MACRODANTIN 100 MG CAPS 1 capsule by mouth twice daily for seven days MACRODANTIN 100 MG CAPS 835698 NITROFURANTOIN MACROCRYSTAL Inactive AMOXICILLIN 500 MG CAPS 2 po BID x 10 days AMOXICILLIN 500 MG CAPS 802501 AMOXICILLIN Inactive Advance Directives Directive Description Start Date PERMISSION TO SHARE Immunizations Vaccine Administration Date Value Standard Description pneumococcal immunization administered Pneumovax 23 [CVX33] pneumococcal polysaccharide vaccine, 23 valent Seasonal influenza vaccine, injectable, containing preservative, for > 3 years old (Afluria, FluLaval, Fluzone, Fluvirin, Fluarix, Agriflu(>=18 yo)) Fluzone (>3 yrs.) [[id number]] Influenza, seasonal, injectable Vital Signs Date Name [...] Panel - Chemistry sodium, serum 137 mmol/L 400-822 9912/01/09 potassium, serum 4.3 mmol/L 3.5-5.2 chloride, serum 99 mmol/L 98-107 carbon dioxide, venous blood 28.4 mmol/L 21.0-32.0 blood glucose 131 mg/dL 65-110 calcium, serum 9.7 mg/dL 8.5-10.1 urea nitrogen, blood 19 mg/dL 7-18 creatinine, serum 0.80 mg/dL 0.60-1.30 hemoglobin A1C, blood, as % of total hemoglobin 7.0 % 4.3-6.0 cholesterol, serum 156 mg/dL 751-977 9473/01/09 triglyceride, serum, fasting 168 mg/dL 30-200 HDL [...] HGBA1C - Chemistry sodium, serum 140 mmol/L 076-587 2669/07/23 potassium, serum 4.5 mmol/L 3.5-5.2 chloride, serum [...] No Encounters Code Encounter Date Provider Facility CPT-20382 Level 4 Est. 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 Patient 16:41:34 CDT Nadir Hector MD [facility] CPT-13327 Level 4 Est. 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 Patient 15:51:21 CDT Nadir Hector MD [facility] CPT-56971 Level 4 New Patient 15:58:26 CDT Catalino Irene MD [facility] CPT-40604 Level 4 Est. Patient 15:42:38 [employer]RICULUM COUNSELOR Nadir Hector MD [facility] Procedures Code Procedure Name Date Entry Date Standard Description CPT-000 Give Appropriate Flu Vaccine 13:54:35 [employer]RICULUM COUNSELOR CPT-000 Give Pneumovax 13:54:35 [employer]ICULUM COUNSELOR CPT-11864 Administration 2+ single or combination vaccines inc oral 14:01:24 [employer]RICULUM COUNSELOR CPT-40509 Administration single or combination vaccine inc oral 14 :01:24 CURRICULUM COUNSELOR CPT-95458 Influenza High Dose age 65+ 14:01:24 CURRICULUM COUNSELOR CPT-86232 Pneumovax 14:01:24 CURRICULUM COUNSELOR CPT-85733 Venipuncture Draw Fee 10:36:48 CDT CPT-000 Give Appropriate Flu Vaccine 15:20:11 [employer]ICULUM COUNSELOR CPT-88721 Administration single or combination vaccine inc oral 15 :50:33 [employer]RICULUM COUNSELOR CPT-08282 Influenza High Dose age 65+ 15:50:33 CURRICULUM COUNSELOR CPT-65873 LS spine AP and Lat 15:30:05 [employer]ICULUM COUNSELOR CPT-44394 Hip comp min 2V 15:30:05 [employer]RICULUM COUNSELOR CPT-43038 Postop F/U Visit 17:28:18 CDT CPT-OV Office Visit 15:04:38 CDT CPT-24014 Bladder Scan 15:58:26 CDT CPT-03487 Cystoscopy 15:58:26 CDT CPT-OV Office Visit 16:15:09 CDT CPT-000 Give Appropriate Flu Vaccine 16:33:10 [employer]RICULUM COUNSELOR CPT-10180 Administration single or combination vaccine inc oral 19 :21:12 CURRICULUM COUNSELOR CPT-79603 Influenza split virus > age 3 19:21:12 CURRICULUM COUNSELOR
--- OUTSIDE RECORDS SUMMARY | 2017-11-11 07:29 | XMS REPORT | Clinical Summary ---
Author Author Admin, IMTIAZ Organization [facility] Address Unknown Phone Allergies, Adverse Reactions, Alerts [...] system, NEC HIP PAIN 719.45 Active Nadir Hecotr MD Pain in joint involving pelvic region [...] 2 po BID x 10 days AMOXICILLIN 00118339916 No Longer Active Nadir Hector MD Active GLUCOTROL XL 5 MG [id number] one tablet daily GLIPIZIDE 18315167239 Active Nadir Hector MD Active JANUVIA 100 MG TABS 1 tablet by mouth daily SITAGLIPTIN PHOSPHATE 19246367709 No Longer Active Nadir Hector MD Active JANUVIA 100 MG TABS Take 1 tab daily SITAGLIPTIN PHOSPHATE 94682528851 No Longer Active Sharon Nuñez Active MACROBID 100 MG CAP 1 cap by mouth twice daily NITROFURANTOIN MONOHYD MACRO 89463562581 No Longer Active Crystal Fernández APRN Active MACRODANTIN 100 MG CAPS 1 capsule by mouth twice daily for seven days NITROFURANTOIN MACROCRYSTAL 50077471816 No Longer Active Ro Yang RN Active BACTRIM DS 800-160 MG TABS one tablet twice a day for seven days SULFAMETHOXAZOLE-TRIMETHOPRIM 94643625453 No Longer Active Sancho Camejo Active BACTRIM DS 800-160 MG TABS TAKE ONE TABLET BY MOUTH TWICE DAILY FOR 7 DAYS SULFAMETHOXAZOLE-TRIMETHOPRIM 65327518129 No Longer Active Viviana Lal RN Active CIPRO 250 MG TABS TAKE ONE TABLET BY MOUTH TWICE DAILY FOR 5 DAYS CIPROFLOXACIN HCL 06443102286 No Longer Active Viviana Lal RN Active FLEXERIL 10 MG TABS 1/2 TO 1 TABLET Q12H NEEDED CYCLOBENZAPRINE HCL 31070126479 No Longer Active Viviana Lal RN Active AMLODIPINE BESYLATE 5 MG TABS 1 1/2 daily AMLODIPINE BESYLATE 01726979984 Active Nadir Hector MD Active ONGLYZA 5 MG TABS 1 QAM SAXAGLIPTIN HCL 24265416556 No Longer Active Nadir Hector MD Active AMLODIPINE BESYLATE 5 MG TABS 1 1/2 TABLET DAILY AMLODIPINE BESYLATE 90348152763 No Longer Active Nadir Hector MD Active LORTAB 5-500 MG TABS 1 BY MOUTH Q6H NEEDED HYDROCODONE- ACETAMINOPHEN 32655714756 No Longer Active Nadir Hector MD Active ACTOS 45 MG TABS 1 QD PIOGLITAZONE HCL 90898628798 No Longer Active Nadir Hector MD Active BACTRIM DS 800-160 MG TAB 1 tab by mouth twice daily TRIMETHOPRIM-SULFAMETHOXAZOLE 75971416047 No Longer Active Nadir Hector MD Active CALCIUM + D 600-200 MG-UNIT TABS 1 TABLET TWO TIMES A DAY CALCIUM CARBONATE-VITAMIN D 79327636741 Active Ro Yang RN Active METOPROLOL SUCCINATE 25 MG [id number] 1 QAM METOPROLOL SUCCINATE 65747414976 Active Nadir Hector MD Active AMARYL 4 MG TABS 1 QD GLIMEPIRIDE 41666345945 Active Nadir Hector MD Active LOVASTATIN 40 MG TABS 1 QD LOVASTATIN 05304936120 Active Nadir Hector MD Active GLUCOPHAGE 1000 MG TABS 1 TABLET TWO TIMES A DAY METFORMIN HCL 81134415110 Active Nadir Hector MD Active MAXZIDE-25 37.5-25 MG TABS 1 QD TRIAMTERENE-HCTZ 55103910809 Active Nadir Hector MD Active ACCUPRIL 40 MG TABS 1 QD QUINAPRIL HCL 12596762649 Active Nadir Hector MD Active BACTRIM DS 800-160 MG TAB 1 tab by mouth twice daily BACTRIM DS 800-160 MG TAB TRIMETHOPRIM-SULFAMETHOXAZOLE Inactive ACTOS 45 MG TABS 1 QD ACTOS 45 MG TABS 163425 PIOGLITAZONE HCL Inactive LORTAB 5-500 MG TABS 1 BY MOUTH Q6H NEEDED LORTAB 5-500 MG TABS HYDROCODONE-ACETAMINOPHEN Inactive AMLODIPINE BESYLATE 5 MG TABS 1 1/2 TABLET DAILY AMLODIPINE BESYLATE 5 MG TABS 396388 AMLODIPINE BESYLATE Inactive ONGLYZA 5 MG TABS 1 QAM ONGLYZA 5 MG TABS SAXAGLIPTIN HCL Inactive FLEXERIL 10 MG TABS 1/2 TO 1 TABLET Q12H NEEDED FLEXERIL 10 MG TABS CYCLOBENZAPRINE HCL Inactive CIPRO 250 MG TABS TAKE ONE TABLET BY MOUTH TWICE DAILY FOR 5 DAYS CIPRO 250 MG TABS 763870 CIPROFLOXACIN HCL Inactive BACTRIM DS 800-160 MG TABS TAKE ONE TABLET BY MOUTH TWICE DAILY FOR 7 DAYS BACTRIM DS 800-160 MG TABS SULFAMETHOXAZOLE-TRIMETHOPRIM Inactive BACTRIM DS 800-160 MG TABS one tablet twice a day for seven days BACTRIM DS 800-160 MG TABS SULFAMETHOXAZOLE-TRIMETHOPRIM Inactive MACROBID 100 MG CAP 1 cap by mouth twice daily MACROBID 100 MG CAP 068698 NITROFURANTOIN MONOHYD MACRO Inactive JANUVIA 100 MG TABS Take 1 tab daily JANUVIA 100 MG TABS SITAGLIPTIN PHOSPHATE Inactive MACRODANTIN 100 MG CAPS 1 capsule by mouth twice daily for seven days MACRODANTIN 100 MG CAPS 732791 NITROFURANTOIN MACROCRYSTAL Inactive AMOXICILLIN 500 MG CAPS 2 po BID x 10 days AMOXICILLIN 500 MG CAPS 905210 AMOXICILLIN Inactive Advance Directives Directive Description Start Date PERMISSION TO SHARE Immunizations Vaccine Administration Date Value Standard Description pneumococcal immunization administered Pneumovax 23 [CVX33] pneumococcal polysaccharide vaccine, 23 valent Seasonal influenza vaccine, injectable, containing preservative, for > 3 years old (Afluria, FluLaval, Fluzone, Fluvirin, Fluarix, Agriflu(>=18 yo)) Fluzone (>3 yrs.) [[id number]] Influenza, seasonal, injectable Vital Signs Date Name [...] E&M - 3141-9 164.13 [lb_av] Weight Measured blood pressure, diastolic - 8462-4 93 mm[Hg] BP tyler blood pressure, systolic - 8480-6 183 mm[Hg] BP sys height E&M - 8302-2 62 [in_us] Bdy height pulse rate E&M - 8867-4 92 /min Heart rate temperature E&M 98.0 [degF] Body temperature weight E&M - 3141-9 166.38 [lb_av] Weight Measured Diagnostic Results Date Name Value Unit Range Description Lab Report: Basic Metabolic Panel - Chemistry sodium, serum 138 mmol/L 296-044 5095/06/05 potassium, serum 4.6 mmol/L 3.5-5.2 chloride, serum 103 mmol/L 98-107 carbon dioxide, venous blood 24.9 mmol/L 21.0-32.0 blood glucose 85 mg/dL 65-110 calcium, serum 9.1 mg/dL 8.5-10.1 urea nitrogen, blood 17 mg/dL 7-18 creatinine, serum 0.90 mg/dL 0.60-1.30 sodium, serum 139 mmol/L 110-862 4578/09/05 potassium, serum 4.1 mmol/L 3.5-5.2 chloride, serum 103 mmol/L 98-107 carbon dioxide, venous blood 29.8 mmol/L 21.0-32.0 blood glucose 81 mg/dL 65-110 calcium, serum 8.9 mg/dL 8.5-10.1 urea nitrogen, blood 16 mg/dL 7-18 creatinine, serum 1.10 mg/dL 0.60-1.30 Lab Report: CBC, Basic Metabolic Panel, HGBA1C, Lipid Panel - Chemistry sodium, serum 137 mmol/L 108-303 0412/01/09 potassium, serum 4.3 mmol/L 3.5-5.2 chloride, serum 99 mmol/L 98-107 carbon dioxide, venous blood 28.4 mmol/L 21.0-32.0 blood glucose 131 mg/dL 65-110 calcium, serum 9.7 mg/dL 8.5-10.1 urea nitrogen, blood 19 mg/dL 7-18 creatinine, serum 0.80 mg/dL 0.60-1.30 hemoglobin A1C, blood, as % of total hemoglobin 7.0 % 4.3-6.0 cholesterol, serum 156 mg/dL 291-301 4189/01/09 triglyceride, serum, fasting 168 mg/dL 30-200 HDL [...] Yes Encounters Code Encounter Date Provider Facility CPT-29758 Level 3 Est. Patient 16:41:34 CDT Nadir Hector MD [facility] CPT-40228 Level 4 Est. 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 Patient 15:51:21 CDT Nadir Hector MD [facility] CPT-24190 Level 4 New Patient 15:58:26 CDT Catalino Irene MD [facility] CPT-45390 Level 4 Est. 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 Hector MD [facility] Procedures Code Procedure Name Date Entry Date Standard Description CPT-97601 Administration 2+ single or combination vaccines inc oral 14:01:24 MILK DRIVER CPT-48548 Administration single or combination vaccine inc oral 14 :01:24 MILK DRIVER CPT-66467 Influenza High Dose age 65+ 14:01:24 MILK DRIVER CPT-82754 Pneumovax 14:01:24 MILK DRIVER CPT-29700 Venipuncture Draw Fee 10:36:48 CDT CPT-000 Give Appropriate Flu Vaccine 15:20:11 MILK DRIVER CPT-60758 Administration single or combination vaccine inc oral 15 :50:33 MILK DRIVER CPT-16220 Influenza High Dose age 65+ 15:50:33 MILK DRIVER CPT-03441 LS spine AP and Lat 15:30:05 MILK DRIVER CPT-48593 Hip comp min 2V 15:30:05 MILK DRIVER CPT-05591 Postop F/U Visit 17:28:18 CDT CPT-OV Office Visit 15:04:38 CDT CPT-29217 Bladder Scan 15:58:26 CDT CPT-38714 Cystoscopy 15:58:26 CDT CPT-OV Office Visit 16:15:09 CDT CPT-000 Give Appropriate Flu Vaccine 16:33:10 MILK DRIVER CPT-77768 Administration single or combination vaccine inc oral 19 :21:12 MILK DRIVER CPT-23534 Influenza split virus > age 3 19:21:12 MILK DRIVER
--- OUTSIDE RECORDS SUMMARY | 2017-11-11 07:30 | XMS REPORT | Clinical Summary ---
Author Author Admin, IMTIAZ Organization [facility] Address Unknown Phone Unavailable Allergies, Adverse [...] MD Routine general medical examination at a [facility] care facility PERIPHERAL NEUROPATHY 356.9 [...] lying down x 1 hour. ALENDRONATE SODIUM 04680366353 Active Nadir Hector MD Active AMOXICILLIN 500 MG CAPS 2 po BID x 10 days AMOXICILLIN 86599688212 No Longer Active Nadir Hector MD Active GLUCOTROL XL 5 MG [id number] one tablet daily GLIPIZIDE 89182755561 Active Nadir Hector MD Active JANUVIA 100 MG TABS 1 tablet by mouth daily SITAGLIPTIN PHOSPHATE 13208558988 No Longer Active Nadir Hector MD Active JANUVIA 100 MG TABS Take 1 tab daily SITAGLIPTIN PHOSPHATE 37651522658 No Longer Active Sharon Nuñez Active MACROBID 100 MG CAP 1 cap by mouth twice daily NITROFURANTOIN MONOHYD MACRO 52681637754 No Longer Active Crystal Fernández APRN Active MACRODANTIN 100 MG CAPS 1 capsule by mouth twice daily for seven days NITROFURANTOIN MACROCRYSTAL 32226674862 No Longer Active Ro Trey RN Active BACTRIM DS 800-160 MG TABS one tablet twice a day for seven days SULFAMETHOXAZOLE-TRIMETHOPRIM 36459477557 No Longer Active HEMANTH Griffin Active BACTRIM DS 800-160 MG TABS TAKE ONE TABLET BY MOUTH TWICE DAILY FOR 7 DAYS SULFAMETHOXAZOLE-TRIMETHOPRIM 20713530818 No Longer Active Viviana Lal RN Active CIPRO 250 MG TABS TAKE ONE TABLET BY MOUTH TWICE DAILY FOR 5 DAYS CIPROFLOXACIN HCL 04420929699 No Longer Active Viviana Lal RN Active FLEXERIL 10 MG TABS 1/2 TO 1 TABLET Q12H NEEDED CYCLOBENZAPRINE HCL 37329831253 No Longer Active Viviana Lal RN Active AMLODIPINE BESYLATE 5 MG TABS 1 1/2 daily AMLODIPINE BESYLATE 51172481606 Active Nadir Hector MD Active ONGLYZA 5 MG TABS 1 QAM SAXAGLIPTIN HCL 83880937738 No Longer Active Nadir Hector MD Active AMLODIPINE BESYLATE 5 MG TABS 1 1/2 TABLET DAILY AMLODIPINE BESYLATE 29957672931 No Longer Active Nadir Hector MD Active LORTAB 5-500 MG TABS 1 BY MOUTH Q6H NEEDED HYDROCODONE- ACETAMINOPHEN 95886072107 No Longer Active Nadir Hector MD Active ACTOS 45 MG TABS 1 QD PIOGLITAZONE HCL 91727724686 No Longer Active Nadir Hector MD Active BACTRIM DS 800-160 MG TAB 1 tab by mouth twice daily TRIMETHOPRIM-SULFAMETHOXAZOLE 68648529445 No Longer Active Nadir Hector MD Active CALCIUM + D 600-200 MG-UNIT TABS 1 TABLET TWO TIMES A DAY CALCIUM CARBONATE-VITAMIN D 86794367531 Active Ro Yang RN Active METOPROLOL SUCCINATE 25 MG [id number] 1 QAM METOPROLOL SUCCINATE 99624756703 Active Nadir Hector MD Active AMARYL 4 MG TABS 1 QD GLIMEPIRIDE 49094837189 Active Nadir Hector MD Active LOVASTATIN 40 MG TABS 1 QD LOVASTATIN 08688958419 Active Nadir Hector MD Active GLUCOPHAGE 1000 MG TABS 1 TABLET TWO TIMES A DAY METFORMIN HCL 34249079596 Active Nadir Hector MD Active MAXZIDE-25 37.5-25 MG TABS 1 QD TRIAMTERENE-HCTZ 49160551440 Active Nadir Hector MD Active ACCUPRIL 40 MG TABS 1 QD QUINAPRIL HCL 06477794411 Active Nadir Hector MD Active BACTRIM DS 800-160 MG TAB 1 tab by mouth twice daily BACTRIM DS 800-160 MG TAB TRIMETHOPRIM-SULFAMETHOXAZOLE Inactive ACTOS 45 MG TABS 1 QD ACTOS 45 MG TABS 075276 PIOGLITAZONE HCL Inactive LORTAB 5-500 MG TABS 1 BY MOUTH Q6H NEEDED LORTAB 5-500 MG TABS HYDROCODONE-ACETAMINOPHEN Inactive AMLODIPINE BESYLATE 5 MG TABS 1 1/2 TABLET DAILY AMLODIPINE BESYLATE 5 MG TABS 406376 AMLODIPINE BESYLATE Inactive ONGLYZA 5 MG TABS 1 QAM ONGLYZA 5 MG TABS SAXAGLIPTIN HCL Inactive FLEXERIL 10 MG TABS 1/2 TO 1 TABLET Q12H NEEDED FLEXERIL 10 MG TABS CYCLOBENZAPRINE HCL Inactive CIPRO 250 MG TABS TAKE ONE TABLET BY MOUTH TWICE DAILY FOR 5 DAYS CIPRO 250 MG TABS 114154 CIPROFLOXACIN HCL Inactive BACTRIM DS 800-160 MG TABS TAKE ONE TABLET BY MOUTH TWICE DAILY FOR 7 DAYS BACTRIM DS 800-160 MG TABS SULFAMETHOXAZOLE-TRIMETHOPRIM Inactive BACTRIM DS 800-160 MG TABS one tablet twice a day for seven days BACTRIM DS 800-160 MG TABS SULFAMETHOXAZOLE-TRIMETHOPRIM Inactive MACROBID 100 MG CAP 1 cap by mouth twice daily MACROBID 100 MG CAP 076714 NITROFURANTOIN MONOHYD MACRO Inactive JANUVIA 100 MG TABS Take 1 tab daily JANUVIA 100 MG TABS SITAGLIPTIN PHOSPHATE Inactive MACRODANTIN 100 MG CAPS 1 capsule by mouth twice daily for seven days MACRODANTIN 100 MG CAPS 128327 NITROFURANTOIN MACROCRYSTAL Inactive AMOXICILLIN 500 MG CAPS 2 po BID x 10 days AMOXICILLIN 500 MG CAPS 268615 AMOXICILLIN Inactive Advance Directives Directive Description Start Date PERMISSION TO SHARE Immunizations Vaccine Administration Date Value Standard Description pneumococcal immunization administered Pneumovax 23 [CVX33] pneumococcal polysaccharide vaccine, 23 valent Seasonal influenza vaccine, injectable, containing preservative, for > 3 years old (Afluria, FluLaval, Fluzone, Fluvirin, Fluarix, Agriflu(>=18 yo)) Fluzone (>3 yrs.) [[id number]] Influenza, seasonal, injectable Vital Signs Date Name Value Unit Range Description blood pressure, diastolic - 8462-4 89 mm[Hg] BP tyler blood pressure, systolic - 8480-6 158 mm[Hg] BP sys pulse rate E&M - 8867-4 89 /min Heart rate temperature E&M 98.2 [degF] Body temperature weight E&M - 3141-9 157 [lb_av] Weight Measured blood pressure, diastolic - 8462-4 82 mm[Hg] BP tyler blood pressure, systolic - 8480-6 155 mm[Hg] BP sys height E&M - 8302-2 62 [in_us] Bdy height pulse rate E&M - 8867-4 105 /min Heart rate temperature E&M 99.0 [degF] Body temperature weight E&M - 3141-9 166.25 [lb_av] Weight Measured Diagnostic Results Date Name Value Unit Range Description Lab Report: Comp. Metabolic Panel, HGBA1C - Chemistry sodium, serum 140 mmol/L 340-164 5261/07/23 potassium, serum 4.5 mmol/L 3.5-5.2 chloride, serum [...] % of total hemoglobin 7.6 % 4.3-6.0 Encounters Code Encounter Date Provider Facility CPT-90674 Level 4 Est. Patient 14:21:01 [employer]ER AND GREASER Nadir Hector MD [facility] CPT-96479 Level 3 Est. Patient 16:41:34 CDT Nadir Hector MD [facility] CPT-55863 Level 4 Est. Patient 13:54:35 [employer] GRE[employer]ER Nadir Hector MD [facility] CPT-57545 Level 3 Est. Patient 15:51:21 CDT Nadir Hector MD [facility] CPT-87158 Level 4 New Patient 15:58:26 CDT Catalino Irene MD [facility] CPT-98620 Level 4 Est. Patient 15:42:38 [employer]ER Nadir Hector MD [facility] Procedures Code Procedure Name Date Entry Date Standard Description CPT-39339 Bone Density 08:41:23 [employer] AND [employer]ER CPT-000 Give Appropriate Flu Vaccine 13:54:35 [employer]ER CPT-000 Give Pneumovax 13:54:35 [employer]ER CPT-58222 Administration 2+ single or combination vaccines inc oral 14:01:24 [employer] CPT-75119 Administration single or combination vaccine inc oral 14 :01:24 [employer] AND [employer]ER CPT-39324 Influenza High Dose age 65+ 14:01:24 [employer] AND [employer]ER CPT-07677 Pneumovax 14:01:24 [employer] AND [employer]ER CPT-93446 Venipuncture Draw Fee 10:36:48 CDT CPT-000 Give Appropriate Flu Vaccine 15:20:11 [employer] CPT-08743 Administration single or combination vaccine inc oral 15 :50:33 [employer]ER CPT-07504 Influenza High Dose age 65+ 15:50:33 [employer] GRE[employer]ER CPT-23882 LS spine AP and Lat 15:30:05 [employer]ER CPT-24965 Hip comp min 2V 15:30:05 [employer]ER CPT-54816 Postop F/U Visit 17:28:18 CDT CPT-OV Office Visit 15:04:38 CDT CPT-52012 Bladder Scan 15:58:26 CDT CPT-61009 Cystoscopy 15:58:26 CDT CPT-OV Office Visit 16:15:09 CDT CPT-000 Give Appropriate Flu Vaccine 16:33:10 [employer] GRE[employer]ER CPT-12703 Administration single or combination vaccine inc oral 19 :21:12 [employer] GRE[employer]ER CPT-84726 Influenza split virus > age 3 19:21:12 [employer]ER
--- OUTSIDE RECORDS SUMMARY | 2017-11-11 07:31 | XMS REPORT | Clinical Summary ---
Author Author Admin, IMTIAZ Organization [facility] Address Unknown Phone Unavailable Allergies, [...] MD Routine general medical examination at a [facility] care facility PERIPHERAL NEUROPATHY 356.9 Active [...] MG ORAL TABS 1 daily SITAGLIPTIN PHOSPHATE 52250265397 Active Nadir Hector MD Active GLUCOTROL XL 5 MG [id number] one tablet daily GLIPIZIDE 68908733603 No Longer Active Nadir Hector MD Active BACTRIM DS 800-160 MG TABS 1 po BID x 7 days SULFAMETHOXAZOLE-TRIMETHOPRIM 59673316878 No Longer Active Jamal Burrell MD Active FOSAMAX 70 MG TABS 1 po qweek. Take 30min prior to first food/drink. Avoid lying down x 1 hour. ALENDRONATE SODIUM 04024811688 Active Nadir Hector MD Active AMOXICILLIN 500 MG CAPS 2 po BID x 10 days AMOXICILLIN 09132784450 No Longer Active Nadir Hector MD Active JANUVIA 100 MG TABS 1 tablet by mouth daily SITAGLIPTIN PHOSPHATE 49477726111 No Longer Active Nadir Hector MD Active JANUVIA 100 MG TABS Take 1 tab daily SITAGLIPTIN PHOSPHATE 25585829527 No Longer Active Sharon Nuñez Active MACROBID 100 MG CAP 1 cap by mouth twice daily NITROFURANTOIN MONOHYD MACRO 07658524481 No Longer Active Crystal Fernández APRN Active MACRODANTIN 100 MG CAPS 1 capsule by mouth twice daily for seven days NITROFURANTOIN MACROCRYSTAL 92219067772 No Longer Active Ro Yang RN Active BACTRIM DS 800-160 MG TABS one tablet twice a day for seven days SULFAMETHOXAZOLE-TRIMETHOPRIM 54772632756 No Longer Active Sancho HEMANTH Camejo Active BACTRIM DS 800-160 MG TABS TAKE ONE TABLET BY MOUTH TWICE DAILY FOR 7 DAYS SULFAMETHOXAZOLE-TRIMETHOPRIM 18260700015 No Longer Active Viviana Lal RN Active CIPRO 250 MG TABS TAKE ONE TABLET BY MOUTH TWICE DAILY FOR 5 DAYS CIPROFLOXACIN HCL 80310150146 No Longer Active Viviana Lal RN Active FLEXERIL 10 MG TABS 1/2 TO 1 TABLET Q12H NEEDED CYCLOBENZAPRINE HCL 03668623761 No Longer Active Viviana Lal RN Active AMLODIPINE BESYLATE 5 MG TABS 1 1/2 daily AMLODIPINE BESYLATE 46542275890 Active Nadir Hector MD Active ONGLYZA 5 MG TABS 1 QAM SAXAGLIPTIN HCL 12193166152 No Longer Active Nadir Hector MD Active AMLODIPINE BESYLATE 5 MG TABS 1 1/2 TABLET DAILY AMLODIPINE BESYLATE 24668630265 No Longer Active Nadir Hector MD Active LORTAB 5-500 MG TABS 1 BY MOUTH Q6H NEEDED HYDROCODONE- ACETAMINOPHEN 09049660027 No Longer Active Nadir Hector MD Active ACTOS 45 MG TABS 1 QD PIOGLITAZONE HCL 63030768784 No Longer Active Nadir Hector MD Active BACTRIM DS 800-160 MG TAB 1 tab by mouth twice daily TRIMETHOPRIM-SULFAMETHOXAZOLE 79022561721 No Longer Active Nadir Hector MD Active CALCIUM + D 600-200 MG-UNIT TABS 1 TABLET TWO TIMES A DAY CALCIUM CARBONATE-VITAMIN D 50933217431 Active Ro Trey CHAMPION Active METOPROLOL SUCCINATE 25 MG [id number] 1 QAM METOPROLOL SUCCINATE 15710445678 Active Nadir Hector MD Active AMARYL 4 MG TABS 1 QD GLIMEPIRIDE 21759463169 Active Nadir Hector MD Active LOVASTATIN 40 MG TABS 1 QD LOVASTATIN 07670531730 Active Nadir Hector MD Active GLUCOPHAGE 1000 MG TABS 1 TABLET TWO TIMES A DAY METFORMIN HCL 02501245459 Active Nadir Hector MD Active MAXZIDE-25 37.5-25 MG TABS 1 QD TRIAMTERENE-HCTZ 49969693516 Active Nadir Hector MD Active ACCUPRIL 40 MG TABS 1 QD QUINAPRIL HCL 80499634184 Active Nadir Hector MD Active BACTRIM DS 800-160 MG TAB 1 tab by mouth twice daily BACTRIM DS 800-160 MG TAB TRIMETHOPRIM-SULFAMETHOXAZOLE Inactive ACTOS 45 MG TABS 1 QD ACTOS 45 MG TABS 655768 PIOGLITAZONE HCL Inactive LORTAB 5-500 MG TABS 1 BY MOUTH Q6H NEEDED LORTAB 5-500 MG TABS HYDROCODONE-ACETAMINOPHEN Inactive AMLODIPINE BESYLATE 5 MG TABS 1 1/2 TABLET DAILY AMLODIPINE BESYLATE 5 MG TABS 760309 AMLODIPINE BESYLATE Inactive ONGLYZA 5 MG TABS [...] mouth twice daily MACROBID 100 MG CAP 688617 NITROFURANTOIN MONOHYD MACRO Inactive JANUVIA 100 MG TABS Take 1 tab daily JANUVIA 100 MG TABS SITAGLIPTIN PHOSPHATE Inactive GLUCOTROL XL 5 MG [id number] one tablet daily GLUCOTROL XL 5 MG [id number] GLIPIZIDE Inactive MACRODANTIN 100 MG CAPS 1 capsule by mouth twice daily for seven days MACRODANTIN 100 MG CAPS 513526 NITROFURANTOIN MACROCRYSTAL Inactive AMOXICILLIN 500 MG CAPS 2 po BID x 10 days AMOXICILLIN 500 MG CAPS 326643 AMOXICILLIN Inactive BACTRIM DS 800-160 MG TABS [...] Fluvirin, Fluarix, Agriflu(>=18 yo)) Fluzone (>3 yrs.) [[id number]] Influenza, seasonal, injectable Vital Signs Date Name [...] total hemoglobin 7.6 % 4.3-6.0 Lab Report: UADIP W/MICRO, AUTO [...] Negative Encounters Code Encounter Date Provider Facility CPT-82992 Level 3 Est. Patient 16:43:04 [employer]Y CLEANER HAND Nadir Hector MD [facility] CPT-15877 Level 4 Est. Patient 14:21:01 [employer] CLE[employer] HAND Nadir Hector MD [facility] CPT-86378 Level 3 Est. Patient 16:41:34 CDT Nadir Hector MD [facility] CPT-82385 Level 4 Est. Patient 13:54:35 [employer] CLE[employer] HAND Nadir Hector MD [facility] CPT-54833 Level 3 Est. Patient 15:51:21 CDT Nadir Hector MD [facility] CPT-32138 Level 4 New Patient 15:58:26 CDT Catalino Irene MD [facility] CPT-35205 Level 4 Est. Patient 15:42:38 [employer] CLE[employer]ER [employer] Nadir Hector MD [facility] Procedures Code Procedure Name Date Entry Date Standard Description CPT-97217 Bone Density 08:41:23 DRY CLEANER HAND CPT-000 Give Appropriate Flu Vaccine 13:54:35 DRY CLEANER HAND CPT-000 Give Pneumovax 13:54:35 [employer] CLEANER HAND CPT-82534 Administration 2+ single or combination vaccines inc oral 14:01:24 DRY CLEANER HAND CPT-08101 Administration single or combination vaccine inc oral 14 :01:24 DRY CLEANER HAND CPT-31793 Influenza High Dose age 65+ 14:01:24 DRY CLEANER HAND CPT-08773 Pneumovax 14:01:24 DRY CLEANER HAND CPT-32391 Venipuncture Draw Fee 10:36:48 CDT CPT-000 Give Appropriate Flu Vaccine 15:20:11 DRY CLEANER HAND CPT-56926 Administration single or combination vaccine inc oral 15 :50:33 DRY CLEANER HAND CPT-85766 Influenza High Dose age 65+ 15:50:33 DRY CLEANER HAND CPT-40627 LS spine AP and Lat 15:30:05 DRY CLEANER HAND CPT-47357 Hip comp min 2V 15:30:05 DRY CLEANER HAND CPT-20418 Postop F/U Visit 17:28:18 CDT CPT-OV Office Visit 15:04:38 CDT CPT-74893 Bladder Scan 15:58:26 CDT CPT-85325 Cystoscopy 15:58:26 CDT CPT-OV Office Visit 16:15:09 CDT CPT-000 Give Appropriate Flu Vaccine 16:33:10 [employer]Y CLE[employer]ER HAND CPT-14788 Administration single or combination vaccine inc oral 19 :21:12 DRY CLEANER HAND CPT-62363 Influenza split virus > age 3 19:21:12 DRY CLEANER HAND
--- OUTSIDE RECORDS SUMMARY | 2017-11-11 07:31 | XMS REPORT | Clinical Summary ---
Author Author Admin, IMTIAZ Organization [facility] Address Unknown Phone Unavailable Allergies, Adverse Reactions, [...] MD Routine general medical examination at a [facility] care facility PERIPHERAL NEUROPATHY 356.9 [...] Provider Patient Instruction BACTRIM DS 800-160 MG TABS 1 po BID x 7 days SULFAMETHOXAZOLE-TRIMETHOPRIM 72117230553 Active Jamal Burrell MD Active FOSAMAX 70 MG TABS 1 po qweek. Take 30min prior to first food/drink. Avoid lying down x 1 hour. ALENDRONATE SODIUM 53231508113 Active Nadir Hector MD Active AMOXICILLIN 500 MG CAPS 2 po BID x 10 days AMOXICILLIN 23907281940 No Longer Active Nadir Hector MD Active GLUCOTROL XL 5 MG [id number] one tablet daily GLIPIZIDE 48827959421 Active Nadir Hector MD Active JANUVIA 100 MG TABS 1 tablet by mouth daily SITAGLIPTIN PHOSPHATE 53342136061 No Longer Active Nadir Hector MD Active JANUVIA 100 MG TABS Take 1 tab daily SITAGLIPTIN PHOSPHATE 27582309559 No Longer Active Sharon Nuñez Active MACROBID 100 MG CAP 1 cap by mouth twice daily NITROFURANTOIN MONOHYD MACRO 54493963594 No Longer Active Crystal Fernández APRN Active MACRODANTIN 100 MG CAPS 1 capsule by mouth twice daily for seven days NITROFURANTOIN MACROCRYSTAL 46195191037 No Longer Active Ro Yang RN Active BACTRIM DS 800-160 MG TABS one tablet twice a day for seven days SULFAMETHOXAZOLE-TRIMETHOPRIM 36837157394 No Longer Active Sancho Rhodeseau HEMANTH Active BACTRIM DS 800-160 MG TABS TAKE ONE TABLET BY MOUTH TWICE DAILY FOR 7 DAYS SULFAMETHOXAZOLE-TRIMETHOPRIM 08920246218 No Longer Active Viviana Lal RN Active CIPRO 250 MG TABS TAKE ONE TABLET BY MOUTH TWICE DAILY FOR 5 DAYS CIPROFLOXACIN HCL 70515239341 No Longer Active Viviana Lal RN Active FLEXERIL 10 MG TABS 1/2 TO 1 TABLET Q12H NEEDED CYCLOBENZAPRINE HCL 65273366640 No Longer Active Viviana Lal RN Active AMLODIPINE BESYLATE 5 MG TABS 1 1/2 daily AMLODIPINE BESYLATE 57680307291 Active Nadir Hector MD Active ONGLYZA 5 MG TABS 1 QAM SAXAGLIPTIN HCL 44350600169 No Longer Active Nadir Hector MD Active AMLODIPINE BESYLATE 5 MG TABS 1 1/2 TABLET DAILY AMLODIPINE BESYLATE 64054264401 No Longer Active Nadir Hector MD Active LORTAB 5-500 MG TABS 1 BY MOUTH Q6H NEEDED HYDROCODONE- ACETAMINOPHEN 55036400590 No Longer Active Nadir Hector MD Active ACTOS 45 MG TABS 1 QD PIOGLITAZONE HCL 20295822729 No Longer Active Nadir Hector MD Active BACTRIM DS 800-160 MG TAB 1 tab by mouth twice daily TRIMETHOPRIM-SULFAMETHOXAZOLE 53904187421 No Longer Active Nadir Hector MD Active CALCIUM + D 600-200 MG-UNIT TABS 1 TABLET TWO TIMES A DAY CALCIUM CARBONATE-VITAMIN D 32619527604 Active Ro Yang RN Active METOPROLOL SUCCINATE 25 MG [id number] 1 QAM METOPROLOL SUCCINATE 76774570564 Active Nadir Hector MD Active AMARYL 4 MG TABS 1 QD GLIMEPIRIDE 55261412977 Active Nadir Hector MD Active LOVASTATIN 40 MG TABS 1 QD LOVASTATIN 62932110626 Active Nadir Hector MD Active GLUCOPHAGE 1000 MG TABS 1 TABLET TWO TIMES A DAY METFORMIN HCL 66312402190 Active Nadir Hector MD Active MAXZIDE-25 37.5-25 MG TABS 1 QD TRIAMTERENE-HCTZ 15238528863 Active Nadir Hector MD Active ACCUPRIL 40 MG TABS 1 QD QUINAPRIL HCL 34000874761 Active Nadir Hector MD Active BACTRIM DS 800-160 MG TAB 1 tab by mouth twice daily BACTRIM DS 800-160 MG TAB TRIMETHOPRIM-SULFAMETHOXAZOLE Inactive ACTOS 45 MG TABS 1 QD ACTOS 45 MG TABS 200229 PIOGLITAZONE HCL Inactive LORTAB 5-500 MG TABS 1 BY MOUTH Q6H NEEDED LORTAB 5-500 MG TABS HYDROCODONE-ACETAMINOPHEN Inactive AMLODIPINE BESYLATE 5 MG TABS 1 1/2 TABLET DAILY AMLODIPINE BESYLATE 5 MG TABS 927932 AMLODIPINE BESYLATE Inactive ONGLYZA 5 MG TABS 1 QAM ONGLYZA 5 MG TABS SAXAGLIPTIN HCL Inactive FLEXERIL 10 MG TABS 1/2 TO 1 TABLET Q12H NEEDED FLEXERIL 10 MG TABS CYCLOBENZAPRINE HCL Inactive CIPRO 250 MG TABS TAKE ONE TABLET BY MOUTH TWICE DAILY FOR 5 DAYS CIPRO 250 MG TABS 379831 CIPROFLOXACIN HCL Inactive BACTRIM DS 800-160 MG TABS TAKE ONE TABLET BY MOUTH TWICE DAILY FOR 7 DAYS BACTRIM DS 800-160 MG TABS SULFAMETHOXAZOLE-TRIMETHOPRIM Inactive BACTRIM DS 800-160 MG TABS one tablet twice a day for seven days BACTRIM DS 800-160 MG TABS SULFAMETHOXAZOLE-TRIMETHOPRIM Inactive MACROBID 100 MG CAP 1 cap by mouth twice daily MACROBID 100 MG CAP 850887 NITROFURANTOIN MONOHYD MACRO Inactive JANUVIA 100 MG TABS Take 1 tab daily JANUVIA 100 MG TABS SITAGLIPTIN PHOSPHATE Inactive MACRODANTIN 100 MG CAPS 1 capsule by mouth twice daily for seven days MACRODANTIN 100 MG CAPS 071096 NITROFURANTOIN MACROCRYSTAL Inactive AMOXICILLIN 500 MG CAPS 2 po BID x 10 days AMOXICILLIN 500 MG CAPS 101484 AMOXICILLIN Inactive Advance Directives Directive Description Start Date PERMISSION TO SHARE Immunizations Vaccine Administration Date Value Standard Description pneumococcal immunization administered Pneumovax 23 [CVX33] pneumococcal polysaccharide vaccine, 23 valent Seasonal influenza vaccine, injectable, containing preservative, for > 3 years old (Afluria, FluLaval, Fluzone, Fluvirin, Fluarix, Agriflu(>=18 yo)) Fluzone (>3 yrs.) [[id number]] Influenza, seasonal, injectable Vital Signs Date Name [...] HGBA1C - Chemistry sodium, serum 140 mmol/L 488-219 2134/07/23 potassium, serum 4.5 mmol/L 3.5-5.2 chloride, serum [...] 5.0-8.5 Encounters Code Encounter Date Provider Facility CPT-65600 Level 4 Est. Patient 14:21:01 EASTERN [employer] PROFESSOR Nadir Hector MD [facility] CPT-70189 Level 3 Est. Patient 16:41:34 CDT Nadir Hector MD [facility] CPT-59377 Level 4 Est. Patient 13:54:35 [employer] PROFESSOR Nadir Hector MD [facility] CPT-94462 Level 3 Est. Patient 15:51:21 CDT Nadir Hector MD [facility] CPT-84783 Level 4 New Patient 15:58:26 CDT Catalino Irene MD [facility] CPT-92628 Level 4 Est. Patient 15:42:38 [employer]OS[employer] PROFESSOR Nadir Hector MD [facility] Procedures Code Procedure Name Date Entry Date Standard Description CPT-59242 Bone Density 08:41:23 E[employer]ERN [employer]OS[employer] PROFESSOR CPT-000 Give Appropriate Flu Vaccine 13:54:35 [employer]ERN [employer] PROFESSOR CPT-000 Give Pneumovax 13:54:35 [employer]ERN [employer] PROFESSOR CPT-06809 Administration 2+ single or combination vaccines inc oral 14:01:24 E[employer]ERN [employer] PROFESSOR CPT-83950 Administration single or combination vaccine inc oral 14 :01:24 E[employer]ERN PHILOS[employer]HY PROFESSOR CPT-85766 Influenza High Dose age 65+ 14:01:24 EASTERN PHILOSOPHY PROFESSOR CPT-02134 Pneumovax 14:01:24 EASTERN PHIL[employer]HY PROFESSOR CPT-68092 Venipuncture Draw Fee 10:36:48 CDT CPT-000 Give Appropriate Flu Vaccine 15:20:11 E[employer]ERN [employer] PROFESSOR CPT-26186 Administration single or combination vaccine inc oral 15 :50:33 E[employer]ERN [employer]HY PROFESSOR CPT-83751 Influenza High Dose age 65+ 15:50:33 E[employer]ERN PHILOSOPHY PROFESSOR CPT-69707 LS spine AP and Lat 15:30:05 E[employer]ERN PHILOSOPHY PROFESSOR CPT-38948 Hip comp min 2V 15:30:05 E[employer]ERN [employer]HY PROFESSOR CPT-10492 Postop F/U Visit 17:28:18 CDT CPT-OV Office Visit 15:04:38 CDT CPT-96877 Bladder Scan 15:58:26 CDT CPT-57691 Cystoscopy 15:58:26 CDT CPT-OV Office Visit 16:15:09 CDT CPT-000 Give Appropriate Flu Vaccine 16:33:10 E[employer]ERN [employer]OPHY PROFESSOR CPT-63579 Administration single or combination vaccine inc oral 19 :21:12 EASTERN PHILOSOPHY PROFESSOR [facility]-10895 Influenza split virus > age 3 19:21:12 EASTERN PHILOSOPHY PROFESSOR
--- OUTSIDE RECORDS SUMMARY | 2017-11-11 07:32 | XMS REPORT | Clinical Summary ---
Author Author Admin, IMTIAZ Organization [facility] Address Unknown Phone Unavailable Allergies, [...] Routine general medical examination at a [facility] care facility PERIPHERAL NEUROPATHY 356.9 [...] 1 po BID x 7 days SULFAMETHOXAZOLE-TRIMETHOPRIM 96337564777 Active Jamal Burrell MD Active FOSAMAX 70 MG TABS 1 po qweek. Take 30min prior to first food/drink. Avoid lying down x 1 hour. ALENDRONATE SODIUM 84877868304 Active Nadir Hector MD Active AMOXICILLIN 500 MG CAPS 2 po BID x 10 days AMOXICILLIN 36176907052 No Longer Active Nadir Hector MD Active GLUCOTROL XL 5 MG [id number] one tablet daily GLIPIZIDE 08597965474 Active Nadir Hector MD Active JANUVIA 100 MG TABS 1 tablet by mouth daily SITAGLIPTIN PHOSPHATE 84260846281 No Longer Active Nadir Hector MD Active JANUVIA 100 MG TABS Take 1 tab daily SITAGLIPTIN PHOSPHATE 21587131580 No Longer Active Sharon Nuñez Active MACROBID 100 MG CAP 1 cap by mouth twice daily NITROFURANTOIN MONOHYD MACRO 57105331133 No Longer Active Crystal Fernández APRN Active MACRODANTIN 100 MG CAPS 1 capsule by mouth twice daily for seven days NITROFURANTOIN MACROCRYSTAL 97027691479 No Longer Active Ro Yang RN Active BACTRIM DS 800-160 MG TABS one tablet twice a day for seven days SULFAMETHOXAZOLE-TRIMETHOPRIM 00625477490 No Longer Active Sancho Rhodeseau HEMANTH Active BACTRIM DS 800-160 MG TABS TAKE ONE TABLET BY MOUTH TWICE DAILY FOR 7 DAYS SULFAMETHOXAZOLE-TRIMETHOPRIM 64186375062 No Longer Active Viviana Lal RN Active CIPRO 250 MG TABS TAKE ONE TABLET BY MOUTH TWICE DAILY FOR 5 DAYS CIPROFLOXACIN HCL 95696878880 No Longer Active Viviana Lal RN Active FLEXERIL 10 MG TABS 1/2 TO 1 TABLET Q12H NEEDED CYCLOBENZAPRINE HCL 81353912668 No Longer Active Viviana Lal RN Active AMLODIPINE BESYLATE 5 MG TABS 1 1/2 daily AMLODIPINE BESYLATE 65838084480 Active Nadir Hector MD Active ONGLYZA 5 MG TABS 1 QAM SAXAGLIPTIN HCL 61803975047 No Longer Active Nadir Hector MD Active AMLODIPINE BESYLATE 5 MG TABS 1 1/2 TABLET DAILY AMLODIPINE BESYLATE 43879878263 No Longer Active Nadir Hector MD Active LORTAB 5-500 MG TABS 1 BY MOUTH Q6H NEEDED HYDROCODONE- ACETAMINOPHEN 76832726149 No Longer Active Nadir Hector MD Active ACTOS 45 MG TABS 1 QD PIOGLITAZONE HCL 69585713451 No Longer Active Nadir Hector MD Active BACTRIM DS 800-160 MG TAB 1 tab by mouth twice daily TRIMETHOPRIM-SULFAMETHOXAZOLE 13519262423 No Longer Active Nadir Hector MD Active CALCIUM + D 600-200 MG-UNIT TABS 1 TABLET TWO TIMES A DAY CALCIUM CARBONATE-VITAMIN D 01027468372 Active Ro Yang RN Active METOPROLOL SUCCINATE 25 MG [id number] 1 QAM METOPROLOL SUCCINATE 19111177945 Active Nadir Hector MD Active AMARYL 4 MG TABS 1 QD GLIMEPIRIDE 55915995481 Active Nadir Hector MD Active LOVASTATIN 40 MG TABS 1 QD LOVASTATIN 77375737800 Active Nadir Hector MD Active GLUCOPHAGE 1000 MG TABS 1 TABLET TWO TIMES A DAY METFORMIN HCL 17410037041 Active Nadir Hector MD Active MAXZIDE-25 37.5-25 MG TABS 1 QD TRIAMTERENE-HCTZ 45597042167 Active Nadir Hector MD Active ACCUPRIL 40 MG TABS 1 QD QUINAPRIL HCL 68117016971 Active Nadir Hector MD Active BACTRIM DS 800-160 MG TAB 1 tab by mouth twice daily BACTRIM DS 800-160 MG TAB TRIMETHOPRIM-SULFAMETHOXAZOLE Inactive ACTOS 45 MG TABS 1 QD ACTOS 45 MG TABS 791032 PIOGLITAZONE HCL Inactive LORTAB 5-500 MG TABS 1 BY MOUTH Q6H NEEDED LORTAB 5-500 MG TABS HYDROCODONE-ACETAMINOPHEN Inactive AMLODIPINE BESYLATE 5 MG TABS 1 1/2 TABLET DAILY AMLODIPINE BESYLATE 5 MG TABS 180688 AMLODIPINE BESYLATE Inactive ONGLYZA 5 MG TABS 1 QAM ONGLYZA 5 MG TABS SAXAGLIPTIN HCL Inactive FLEXERIL 10 MG TABS 1/2 TO 1 TABLET Q12H NEEDED FLEXERIL 10 MG TABS CYCLOBENZAPRINE HCL Inactive CIPRO 250 MG TABS TAKE ONE TABLET BY MOUTH TWICE DAILY FOR 5 DAYS CIPRO 250 MG TABS 000087 CIPROFLOXACIN HCL Inactive BACTRIM DS 800-160 MG TABS TAKE ONE TABLET BY MOUTH TWICE DAILY FOR 7 DAYS BACTRIM DS 800-160 MG TABS SULFAMETHOXAZOLE-TRIMETHOPRIM Inactive BACTRIM DS 800-160 MG TABS one tablet twice a day for seven days BACTRIM DS 800-160 MG TABS SULFAMETHOXAZOLE-TRIMETHOPRIM Inactive MACROBID 100 MG CAP 1 cap by mouth twice daily MACROBID 100 MG CAP 059746 NITROFURANTOIN MONOHYD MACRO Inactive JANUVIA 100 MG TABS Take 1 tab daily JANUVIA 100 MG TABS SITAGLIPTIN PHOSPHATE Inactive MACRODANTIN 100 MG CAPS 1 capsule by mouth twice daily for seven days MACRODANTIN 100 MG CAPS 670566 NITROFURANTOIN MACROCRYSTAL Inactive AMOXICILLIN 500 MG CAPS 2 po BID x 10 days AMOXICILLIN 500 MG CAPS 785729 AMOXICILLIN Inactive Advance Directives Directive Description Start Date PERMISSION TO SHARE Immunizations Vaccine Administration Date Value Standard Description pneumococcal immunization administered Pneumovax 23 [CVX33] pneumococcal polysaccharide vaccine, 23 valent Seasonal influenza vaccine, injectable, containing preservative, for > 3 years old (Afluria, FluLaval, Fluzone, Fluvirin, Fluarix, Agriflu(>=18 yo)) Fluzone (>3 yrs.) [[id number]] Influenza, seasonal, injectable Vital Signs Date Name [...] HGBA1C - Chemistry sodium, serum 140 mmol/L 234-756 0576/07/23 potassium, serum 4.5 mmol/L 3.5-5.2 chloride, serum [...] 5.0-8.5 Encounters Code Encounter Date Provider Facility CPT-42499 Level 4 Est. Patient 14:21:01 WELDER TOOL AND DIE Nadir Hector MD [facility] CPT-93791 Level 3 Est. Patient 16:41:34 CDT Nadir Hector MD [facility] CPT-59301 Level 4 Est. Patient 13:54:35 WELDER TOOL AND DIE Nadir Hector MD [facility] CPT-52508 Level 3 Est. Patient 15:51:21 CDT Nadir Hector MD [facility] CPT-34886 Level 4 New Patient 15:58:26 CDT Catalino Irene MD [facility] CPT-77483 Level 4 Est. Patient 15:42:38 WELDER [employer] AND DIE Nadir Hector MD [facility] Procedures Code Procedure Name Date Entry Date Standard Description CPT-74858 Bone Density 08:41:23 W[employer] CPT-000 Give Appropriate Flu Vaccine 13:54:35 W[employer] CPT-000 Give Pneumovax 13:54:35 W[employer] CPT-01447 Administration 2+ single or combination vaccines inc oral 14:01:24 W[employer] CPT-56042 Administration single or combination vaccine inc oral 14 :01:24 W[employer] CPT-71422 Influenza High Dose age 65+ 14:01:24 W[employer] CPT-97331 Pneumovax 14:01:24 W[employer] CPT-53307 Venipuncture Draw Fee 10:36:48 CDT CPT-000 Give Appropriate Flu Vaccine 15:20:11 W[employer] CPT-36289 Administration single or combination vaccine inc oral 15 :50:33 W[employer] CPT-58086 Influenza High Dose age 65+ 15:50:33 W[employer] CPT-47295 LS spine AP and Lat 15:30:05 [employer] CPT-16913 Hip comp min 2V 15:30:05 W[employer] CPT-42086 Postop F/U Visit 17:28:18 CDT CPT-OV Office Visit 15:04:38 CDT CPT-54247 Bladder Scan 15:58:26 CDT CPT-83134 Cystoscopy 15:58:26 CDT CPT-OV Office Visit 16:15:09 CDT CPT-000 Give Appropriate Flu Vaccine 16:33:10 W[employer] CPT-59722 Administration single or combination vaccine inc oral 19 :21:12 WELDER TOOL AND DIE [facility]-82950 Influenza split virus > age 3 19:21:12 WELDER TOOL AND DIE
--- OUTSIDE RECORDS SUMMARY | 2017-11-11 07:32 | XMS REPORT | Clinical Summary ---
[...] MD Routine general medical examination at a [facility] care facility PERIPHERAL NEUROPATHY 356.9 Active [...] of colonic polyps UTERINE PROLAPSE 618.1 Active Ctaalino Irene MD Uterine prolapse without mention of [...] MG ORAL TABS 1 daily SITAGLIPTIN PHOSPHATE 81485213652 Active Nadir Hector MD Active GLUCOTROL XL 5 MG [id number] one tablet daily GLIPIZIDE 25502436776 No Longer Active Nadir Hector MD Active BACTRIM DS 800-160 MG TABS 1 po BID x 7 days SULFAMETHOXAZOLE-TRIMETHOPRIM 68133457000 No Longer Active Jamal Burrell MD Active FOSAMAX 70 MG TABS 1 po qweek. Take 30min prior to first food/drink. Avoid lying down x 1 hour. ALENDRONATE SODIUM 58927033274 Active Nadir Hector MD Active AMOXICILLIN 500 MG CAPS 2 po BID x 10 days AMOXICILLIN 30902146726 No Longer Active Nadir Hector MD Active JANUVIA 100 MG TABS 1 tablet by mouth daily SITAGLIPTIN PHOSPHATE 72278470605 No Longer Active Nadir Hector MD Active JANUVIA 100 MG TABS Take 1 tab daily SITAGLIPTIN PHOSPHATE 31570493684 No Longer Active Sharon Nuñez Active MACROBID 100 MG CAP 1 cap by mouth twice daily NITROFURANTOIN MONOHYD MACRO 33660315028 No Longer Active Crystal Fernández APRN Active MACRODANTIN 100 MG CAPS 1 capsule by mouth twice daily for seven days NITROFURANTOIN MACROCRYSTAL 06569883158 No Longer Active Ro Yang RN Active BACTRIM DS 800-160 MG TABS one tablet twice a day for seven days SULFAMETHOXAZOLE-TRIMETHOPRIM 49566446511 No Longer Active Sancho HEMANTH Camejo Active BACTRIM DS 800-160 MG TABS TAKE ONE TABLET BY MOUTH TWICE DAILY FOR 7 DAYS SULFAMETHOXAZOLE-TRIMETHOPRIM 83237795703 No Longer Active Viviana Lal RN Active CIPRO 250 MG TABS TAKE ONE TABLET BY MOUTH TWICE DAILY FOR 5 DAYS CIPROFLOXACIN HCL 67652510920 No Longer Active Viviana Lal RN Active FLEXERIL 10 MG TABS 1/2 TO 1 TABLET Q12H NEEDED CYCLOBENZAPRINE HCL 82927694765 No Longer Active Viviana Lal RN Active AMLODIPINE BESYLATE 5 MG TABS 1 1/2 daily AMLODIPINE BESYLATE 61931542484 Active Nadir Hector MD Active ONGLYZA 5 MG TABS 1 QAM SAXAGLIPTIN HCL 66466851423 No Longer Active Nadir Hector MD Active AMLODIPINE BESYLATE 5 MG TABS 1 1/2 TABLET DAILY AMLODIPINE BESYLATE 55892739281 No Longer Active Nadir Hector MD Active LORTAB 5-500 MG TABS 1 BY MOUTH Q6H NEEDED HYDROCODONE- ACETAMINOPHEN 34010957553 No Longer Active Nadir Hector MD Active ACTOS 45 MG TABS 1 QD PIOGLITAZONE HCL 91778612593 No Longer Active Nadir Hector MD Active BACTRIM DS 800-160 MG TAB 1 tab by mouth twice daily TRIMETHOPRIM-SULFAMETHOXAZOLE 26361664449 No Longer Active Nadir Hector MD Active CALCIUM + D 600-200 MG-UNIT TABS 1 TABLET TWO TIMES A DAY CALCIUM CARBONATE-VITAMIN D 65568308941 Active Ro Trey CHAMPION Active METOPROLOL SUCCINATE 25 MG [id number] 1 QAM METOPROLOL SUCCINATE 47409935216 Active Nadir Hector MD Active AMARYL 4 MG TABS 1 QD GLIMEPIRIDE 36036038035 Active Nadir Hector MD Active LOVASTATIN 40 MG TABS 1 QD LOVASTATIN 61746673848 Active Nadir Hector MD Active GLUCOPHAGE 1000 MG TABS 1 TABLET TWO TIMES A DAY METFORMIN HCL 88132238118 Active Nadir Hector MD Active MAXZIDE-25 37.5-25 MG TABS 1 QD TRIAMTERENE-HCTZ 60296972929 Active Nadir Hector MD Active ACCUPRIL 40 MG TABS 1 QD QUINAPRIL HCL 64555818682 Active Nadir Hector MD Active BACTRIM DS 800-160 MG TAB 1 tab by mouth twice daily BACTRIM DS 800-160 MG TAB TRIMETHOPRIM-SULFAMETHOXAZOLE Inactive ACTOS 45 MG TABS 1 QD ACTOS 45 MG TABS 594735 PIOGLITAZONE HCL Inactive LORTAB 5-500 MG TABS 1 BY MOUTH Q6H NEEDED LORTAB 5-500 MG TABS HYDROCODONE-ACETAMINOPHEN Inactive AMLODIPINE BESYLATE 5 MG TABS 1 1/2 TABLET DAILY AMLODIPINE BESYLATE 5 MG TABS 007180 AMLODIPINE BESYLATE Inactive ONGLYZA 5 MG TABS [...] mouth twice daily MACROBID 100 MG CAP 169173 NITROFURANTOIN MONOHYD MACRO Inactive JANUVIA 100 MG TABS Take 1 tab daily JANUVIA 100 MG TABS SITAGLIPTIN PHOSPHATE Inactive GLUCOTROL XL 5 MG [id number] one tablet daily GLUCOTROL XL 5 MG [id number] GLIPIZIDE Inactive MACRODANTIN 100 MG CAPS 1 capsule by mouth twice daily for seven days MACRODANTIN 100 MG CAPS 977054 NITROFURANTOIN MACROCRYSTAL Inactive AMOXICILLIN 500 MG CAPS 2 po BID x 10 days AMOXICILLIN 500 MG CAPS 449947 AMOXICILLIN Inactive BACTRIM DS 800-160 MG TABS [...] Fluvirin, Fluarix, Agriflu(>=18 yo)) Fluzone (>3 yrs.) [[id number]] Influenza, seasonal, injectable Vital Signs Date Name [...] HGBA1C - Chemistry sodium, serum 140 mmol/L 750-094 9801/07/23 potassium, serum 4.5 mmol/L 3.5-5.2 chloride, serum [...] Negative Encounters Code Encounter Date Provider Facility CPT-59463 Level 3 Est. Patient 16:43:04 CONSULTANT Nadir Hector MD [facility] CPT-75714 Level 4 Est. Patient 14:21:01 CONSULTANT Nadir Hector MD [facility] CPT-44360 Level 3 Est. Patient 16:41:34 CDT Nadir Hector MD [facility] CPT-20354 Level 4 Est. Patient 13:54:35 CONSULTANT Nadir Hector MD [facility] CPT-17522 Level 3 Est. Patient 15:51:21 CDT Nadir Hector MD [facility] CPT-79123 Level 4 New Patient 15:58:26 CDT Catalino Irene MD [facility] CPT-02924 Level 4 Est. Patient 15:42:38 CONSULTANT Nadir Hector MD [facility] Procedures Code Procedure Name Date Entry Date Standard Description CPT-09205 Bone Density 08:41:23 CONSULTANT CPT-000 Give Appropriate Flu Vaccine 13:54:35 CONSULTANT CPT-000 Give Pneumovax 13:54:35 CONSULTANT CPT-16626 Administration 2+ single or combination vaccines inc oral 14:01:24 CONSULTANT CPT-00880 Administration single or combination vaccine inc oral 14 :01:24 CONSULTANT CPT-00145 Influenza High Dose age 65+ 14:01:24 CONSULTANT CPT-87674 Pneumovax 14:01:24 CONSULTANT CPT-68056 Venipuncture Draw Fee 10:36:48 CDT CPT-000 Give Appropriate Flu Vaccine 15:20:11 CONSULTANT CPT-43996 Administration single or combination vaccine inc oral 15 :50:33 CONSULTANT CPT-46563 Influenza High Dose age 65+ 15:50:33 CONSULTANT CPT-30307 LS spine AP and Lat 15:30:05 CONSULTANT CPT-88859 Hip comp min 2V 15:30:05 CONSULTANT CPT-19533 Postop F/U Visit 17:28:18 CDT CPT-OV Office Visit 15:04:38 CDT CPT-53565 Bladder Scan 15:58:26 CDT CPT-96846 Cystoscopy 15:58:26 CDT CPT-OV Office Visit 16:15:09 CDT CPT-000 Give Appropriate Flu Vaccine 16:33:10 CONSULTANT CPT-59954 Administration single or combination vaccine inc oral 19 :21:12 CONSULTANT CPT-56535 Influenza split virus > age 3 19:21:12 CONSULTANT
--- OUTSIDE RECORDS SUMMARY | 2017-11-11 07:33 | XMS REPORT | Clinical Summary ---
Author Author Admin, IMTIAZ Organization [facility] Address Unknown Phone Unavailable Allergies, Adverse Reactions, [...] Routine general medical examination at a [facility] care facility PERIPHERAL NEUROPATHY 356.9 Active Nadir [...] MG ORAL TABS 1 daily SITAGLIPTIN PHOSPHATE 27988175697 Active Nadir Hector MD Active GLUCOTROL XL 5 MG [id number] one tablet daily GLIPIZIDE 29264219369 No Longer Active Nadir Hector MD Active BACTRIM DS 800-160 MG TABS 1 po BID x 7 days SULFAMETHOXAZOLE-TRIMETHOPRIM 17517079466 Active Jamal Burrell MD Active FOSAMAX 70 MG TABS 1 po qweek. Take 30min prior to first food/drink. Avoid lying down x 1 hour. ALENDRONATE SODIUM 23078953713 Active Nadir Hector MD Active AMOXICILLIN 500 MG CAPS 2 po BID x 10 days AMOXICILLIN 81730138494 No Longer Active Nadir Hector MD Active JANUVIA 100 MG TABS 1 tablet by mouth daily SITAGLIPTIN PHOSPHATE 28280372958 No Longer Active Nadir Hector MD Active JANUVIA 100 MG TABS Take 1 tab daily SITAGLIPTIN PHOSPHATE 82404015595 No Longer Active Sharon Nuñez Active MACROBID 100 MG CAP 1 cap by mouth twice daily NITROFURANTOIN MONOHYD MACRO 90687957114 No Longer Active Crystal Fernández APRN Active MACRODANTIN 100 MG CAPS 1 capsule by mouth twice daily for seven days NITROFURANTOIN MACROCRYSTAL 36232487216 No Longer Active Ronatan Yang RN Active BACTRIM DS 800-160 MG TABS one tablet twice a day for seven days SULFAMETHOXAZOLE-TRIMETHOPRIM 15821821056 No Longer Active SanchoHEMANTH Maria Active BACTRIM DS 800-160 MG TABS TAKE ONE TABLET BY MOUTH TWICE DAILY FOR 7 DAYS SULFAMETHOXAZOLE-TRIMETHOPRIM 07404612162 No Longer Active Viviana Lal RN Active CIPRO 250 MG TABS TAKE ONE TABLET BY MOUTH TWICE DAILY FOR 5 DAYS CIPROFLOXACIN HCL 51343185555 No Longer Active Viviana Lal RN Active FLEXERIL 10 MG TABS 1/2 TO 1 TABLET Q12H NEEDED CYCLOBENZAPRINE HCL 23341513961 No Longer Active Viviana Lal RN Active AMLODIPINE BESYLATE 5 MG TABS 1 1/2 daily AMLODIPINE BESYLATE 04598594861 Active Nadir Hector MD Active ONGLYZA 5 MG TABS 1 QAM SAXAGLIPTIN HCL 86108398455 No Longer Active Nadir Hector MD Active AMLODIPINE BESYLATE 5 MG TABS 1 1/2 TABLET DAILY AMLODIPINE BESYLATE 11037975784 No Longer Active Nadir Hector MD Active LORTAB 5-500 MG TABS 1 BY MOUTH Q6H NEEDED HYDROCODONE- ACETAMINOPHEN 30315071768 No Longer Active Nadir Hector MD Active ACTOS 45 MG TABS 1 QD PIOGLITAZONE HCL 80930422162 No Longer Active Nadir Hector MD Active BACTRIM DS 800-160 MG TAB 1 tab by mouth twice daily TRIMETHOPRIM-SULFAMETHOXAZOLE 87079097673 No Longer Active Nadir Hector MD Active CALCIUM + D 600-200 MG-UNIT TABS 1 TABLET TWO TIMES A DAY CALCIUM CARBONATE-VITAMIN D 86443645024 Active Ro Trey RN Active METOPROLOL SUCCINATE 25 MG [id number] 1 QAM METOPROLOL SUCCINATE 80922474345 Active Nadir Hector MD Active AMARYL 4 MG TABS 1 QD GLIMEPIRIDE 41776964040 Active Nadir Hector MD Active LOVASTATIN 40 MG TABS 1 QD LOVASTATIN 29831280576 Active Nadir Hector MD Active GLUCOPHAGE 1000 MG TABS 1 TABLET TWO TIMES A DAY METFORMIN HCL 85941360392 Active Nadir Hector MD Active MAXZIDE-25 37.5-25 MG TABS 1 QD TRIAMTERENE-HCTZ 22023334646 Active Nadir Hector MD Active ACCUPRIL 40 MG TABS 1 QD QUINAPRIL HCL 32243216649 Active Nadir Hector MD Active BACTRIM DS 800-160 MG TAB 1 tab by mouth twice daily BACTRIM DS 800-160 MG TAB TRIMETHOPRIM-SULFAMETHOXAZOLE Inactive ACTOS 45 MG TABS 1 QD ACTOS 45 MG TABS 529036 PIOGLITAZONE HCL Inactive LORTAB 5-500 MG TABS 1 BY MOUTH Q6H NEEDED LORTAB 5-500 MG TABS HYDROCODONE-ACETAMINOPHEN Inactive AMLODIPINE BESYLATE 5 MG TABS 1 1/2 TABLET DAILY AMLODIPINE BESYLATE 5 MG TABS 644258 AMLODIPINE BESYLATE Inactive ONGLYZA 5 MG TABS [...] mouth twice daily MACROBID 100 MG CAP 098449 NITROFURANTOIN MONOHYD MACRO Inactive JANUVIA 100 MG TABS Take 1 tab daily JANUVIA 100 MG TABS SITAGLIPTIN PHOSPHATE Inactive GLUCOTROL XL 5 MG [id number] one tablet daily GLUCOTROL XL 5 MG [id number] GLIPIZIDE Inactive MACRODANTIN 100 MG CAPS 1 capsule by mouth twice daily for seven days MACRODANTIN 100 MG CAPS 526643 NITROFURANTOIN MACROCRYSTAL Inactive AMOXICILLIN 500 MG CAPS 2 po BID x 10 days AMOXICILLIN 500 MG CAPS 895870 AMOXICILLIN Inactive Advance Directives Directive Description Start Date PERMISSION TO SHARE Immunizations Vaccine Administration Date Value Standard Description pneumococcal immunization administered Pneumovax 23 [CVX33] pneumococcal polysaccharide vaccine, 23 valent Seasonal influenza vaccine, injectable, containing preservative, for > 3 years old (Afluria, FluLaval, Fluzone, Fluvirin, Fluarix, Agriflu(>=18 yo)) Fluzone (>3 yrs.) [[id number]] Influenza, seasonal, injectable Vital Signs Date Name [...] HGBA1C - Chemistry sodium, serum 140 mmol/L 913-444 8924/07/23 potassium, serum 4.5 mmol/L 3.5-5.2 chloride, serum [...] 5.0-8.5 Encounters Code Encounter Date Provider Facility CPT-75501 Level 3 Est. Patient 16:43:04 TAX ADJUSTER Nadir Hector MD [facility] CPT-17366 Level 4 Est. Patient 14:21:01 TAX ADJUSTER Nadir Hector MD [facility] CPT-92844 Level 3 Est. Patient 16:41:34 CDT Nadir Hector MD [facility] CPT-60860 Level 4 Est. Patient 13:54:35 TAX ADJUSTER Nadir Hector MD [facility] CPT-94598 Level 3 Est. Patient 15:51:21 CDT Nadir Hector MD [facility] CPT-16949 Level 4 New Patient 15:58:26 CDT Catalino Irene MD [facility] CPT-97749 Level 4 Est. Patient 15:42:38 TAX ADJUSTER Nadir Hector MD [facility] Procedures Code Procedure Name Date Entry Date Standard Description CPT-58484 Bone Density 08:41:23 TAX ADJUSTER CPT-000 Give Appropriate Flu Vaccine 13:54:35 TAX ADJUSTER CPT-000 Give Pneumovax 13:54:35 TAX ADJUSTER CPT-70865 Administration 2+ single or combination vaccines inc oral 14:01:24 TAX ADJUSTER CPT-60945 Administration single or combination vaccine inc oral 14 :01:24 TAX ADJUSTER CPT-48228 Influenza High Dose age 65+ 14:01:24 TAX ADJUSTER CPT-40730 Pneumovax 14:01:24 TAX ADJUSTER CPT-63818 Venipuncture Draw Fee 10:36:48 CDT CPT-000 Give Appropriate Flu Vaccine 15:20:11 TAX ADJUSTER CPT-41009 Administration single or combination vaccine inc oral 15 :50:33 TAX ADJUSTER CPT-96035 Influenza High Dose age 65+ 15:50:33 TAX ADJUSTER CPT-17842 LS spine AP and Lat 15:30:05 TAX ADJUSTER CPT-30471 Hip comp min 2V 15:30:05 TAX ADJUSTER CPT-00137 Postop F/U Visit 17:28:18 CDT CPT-OV Office Visit 15:04:38 CDT CPT-37401 Bladder Scan 15:58:26 CDT CPT-51539 Cystoscopy 15:58:26 CDT CPT-OV Office Visit 16:15:09 CDT CPT-000 Give Appropriate Flu Vaccine 16:33:10 TAX ADJUSTER CPT-49699 Administration single or combination vaccine inc oral 19 :21:12 TAX ADJUSTER CPT-69953 Influenza split virus > age 3 19:21:12 TAX ADJUSTER
--- OUTSIDE RECORDS SUMMARY | 2017-11-11 07:34 | XMS REPORT | Clinical Summary ---
[...] 1 po BID x 7 days SULFAMETHOXAZOLE-TRIMETHOPRIM [id number] Active Jamal Burrell MD Active FOSAMAX 70 MG TABS 1 po qweek. Take 30min prior to first food/drink. Avoid lying down x 1 hour. ALENDRONATE SODIUM 70672247254 Active Nadir Hector MD Active AMOXICILLIN 500 MG CAPS 2 po BID x 10 days AMOXICILLIN 94424292983 No Longer Active Nadir Hector MD Active GLUCOTROL XL 5 MG [id number] one tablet daily GLIPIZIDE 13098337550 Active Nadir Hector MD Active JANUVIA 100 MG TABS 1 tablet by mouth daily SITAGLIPTIN PHOSPHATE 66575426550 No Longer Active Nadir Hector MD Active JANUVIA 100 MG TABS Take 1 tab daily SITAGLIPTIN PHOSPHATE 07975982567 No Longer Active Sharon Nuñez Active MACROBID 100 MG CAP 1 cap by mouth twice daily NITROFURANTOIN MONOHYD MACRO 55100436957 No Longer Active Crystal Fernández APRN Active MACRODANTIN 100 MG CAPS 1 capsule by mouth twice daily for seven days NITROFURANTOIN MACROCRYSTAL 83922885966 No Longer Active Ro Yang RN Active BACTRIM DS 800-160 MG TABS one tablet twice a day for seven days SULFAMETHOXAZOLE-TRIMETHOPRIM 98102475639 No Longer Active Sancho Rhodeseau HEMANTH Active BACTRIM DS 800-160 MG TABS TAKE ONE TABLET BY MOUTH TWICE DAILY FOR 7 DAYS SULFAMETHOXAZOLE-TRIMETHOPRIM 98549493534 No Longer Active Viviana Lal RN Active CIPRO 250 MG TABS TAKE ONE TABLET BY MOUTH TWICE DAILY FOR 5 DAYS CIPROFLOXACIN HCL 02711493301 No Longer Active Viviana Lal RN Active FLEXERIL 10 MG TABS 1/2 TO 1 TABLET Q12H NEEDED CYCLOBENZAPRINE HCL 74575230040 No Longer Active Viviana Lal RN Active AMLODIPINE BESYLATE 5 MG TABS 1 1/2 daily AMLODIPINE BESYLATE 85140603065 Active Nadir Hector MD Active ONGLYZA 5 MG TABS 1 QAM SAXAGLIPTIN HCL 42258450529 No Longer Active Nadir Hector MD Active AMLODIPINE BESYLATE 5 MG TABS 1 1/2 TABLET DAILY AMLODIPINE BESYLATE 78025375514 No Longer Active Nadir Hector MD Active LORTAB 5-500 MG TABS 1 BY MOUTH Q6H NEEDED HYDROCODONE- ACETAMINOPHEN 83060814874 No Longer Active Nadir Hector MD Active ACTOS 45 MG TABS 1 QD PIOGLITAZONE HCL 41129678061 No Longer Active Nadir Hector MD Active BACTRIM DS 800-160 MG TAB 1 tab by mouth twice daily TRIMETHOPRIM-SULFAMETHOXAZOLE 19918073542 No Longer Active Nadir Hector MD Active CALCIUM + D 600-200 MG-UNIT TABS 1 TABLET TWO TIMES A DAY CALCIUM CARBONATE-VITAMIN D 65465137197 Active Ro Yang RN Active METOPROLOL SUCCINATE 25 MG [id number] 1 QAM METOPROLOL SUCCINATE 92041951249 Active Nadir Hector MD Active AMARYL 4 MG TABS 1 QD GLIMEPIRIDE 81790615204 Active Nadir Hector MD Active LOVASTATIN 40 MG TABS 1 QD LOVASTATIN 60103847499 Active Nadir Hector MD Active GLUCOPHAGE 1000 MG TABS 1 TABLET TWO TIMES A DAY METFORMIN HCL 88008777824 Active Nadir Hector MD Active MAXZIDE-25 37.5-25 MG TABS 1 QD TRIAMTERENE-HCTZ 56272279309 Active Nadir Hector MD Active ACCUPRIL 40 MG TABS 1 QD QUINAPRIL HCL 76983013694 Active Nadir Hector MD Active BACTRIM DS 800-160 MG TAB 1 tab by mouth twice daily BACTRIM DS 800-160 MG TAB TRIMETHOPRIM-SULFAMETHOXAZOLE Inactive ACTOS 45 MG TABS 1 QD ACTOS 45 MG TABS 347912 PIOGLITAZONE HCL Inactive LORTAB 5-500 MG TABS 1 BY MOUTH Q6H NEEDED LORTAB 5-500 MG TABS HYDROCODONE-ACETAMINOPHEN Inactive AMLODIPINE BESYLATE 5 MG TABS 1 1/2 TABLET DAILY AMLODIPINE BESYLATE 5 MG TABS 513356 AMLODIPINE BESYLATE Inactive ONGLYZA 5 MG TABS 1 QAM ONGLYZA 5 MG TABS SAXAGLIPTIN HCL Inactive FLEXERIL 10 MG TABS 1/2 TO 1 TABLET Q12H NEEDED FLEXERIL 10 MG TABS CYCLOBENZAPRINE HCL Inactive CIPRO 250 MG TABS TAKE ONE TABLET BY MOUTH TWICE DAILY FOR 5 DAYS CIPRO 250 MG TABS 172267 CIPROFLOXACIN HCL Inactive BACTRIM DS 800-160 MG TABS TAKE ONE TABLET BY MOUTH TWICE DAILY FOR 7 DAYS BACTRIM DS 800-160 MG TABS SULFAMETHOXAZOLE-TRIMETHOPRIM Inactive BACTRIM DS 800-160 MG TABS one tablet twice a day for seven days BACTRIM DS 800-160 MG TABS SULFAMETHOXAZOLE-TRIMETHOPRIM Inactive MACROBID 100 MG CAP 1 cap by mouth twice daily MACROBID 100 MG CAP 767000 NITROFURANTOIN MONOHYD MACRO Inactive JANUVIA 100 MG TABS Take 1 tab daily JANUVIA 100 MG TABS SITAGLIPTIN PHOSPHATE Inactive MACRODANTIN 100 MG CAPS 1 capsule by mouth twice daily for seven days MACRODANTIN 100 MG CAPS 032414 NITROFURANTOIN MACROCRYSTAL Inactive AMOXICILLIN 500 MG CAPS 2 po BID x 10 days AMOXICILLIN 500 MG CAPS 535299 AMOXICILLIN Inactive Advance Directives Directive Description Start Date PERMISSION TO SHARE Immunizations Vaccine Administration Date Value Standard Description pneumococcal immunization administered Pneumovax 23 [CVX33] pneumococcal polysaccharide vaccine, 23 valent Seasonal influenza vaccine, injectable, containing preservative, for > 3 years old (Afluria, FluLaval, Fluzone, Fluvirin, Fluarix, Agriflu(>=18 yo)) Fluzone (>3 yrs.) [[id number]] Influenza, seasonal, injectable Vital Signs Date Name [...] HGBA1C - Chemistry sodium, serum 140 mmol/L 797-830 2679/07/23 potassium, serum 4.5 mmol/L 3.5-5.2 chloride, serum [...] 5.0-8.5 Encounters Code Encounter Date Provider Facility CPT-49482 Level 4 Est. Patient 14:21:01 SUPERVISOR FABRICATION Nadir Hector MD [facility] CPT-36725 Level 3 Est. Patient 16:41:34 CDT Nadir Hector MD [facility] CPT-61960 Level 4 Est. Patient 13:54:35 SUPERVISOR FABRICATION Nadir Hector MD [facility] CPT-22364 Level 3 Est. Patient 15:51:21 CDT Nadir Hector MD [facility] CPT-84608 Level 4 New Patient 15:58:26 CDT Catalino Irene MD [facility] CPT-09026 Level 4 Est. Patient 15:42:38 SUPERVISOR FABRICATION Nadir Hector MD [facility] Procedures Code Procedure Name Date Entry Date Standard Description CPT-60637 Bone Density 08:41:23 SUPERVISOR FABRICATION CPT-000 Give Appropriate Flu Vaccine 13:54:35 SUPERVISOR FABRICATION CPT-000 Give Pneumovax 13:54:35 SUPERVISOR FABRICATION CPT-75816 Administration 2+ single or combination vaccines inc oral 14:01:24 SUPERVISOR FABRICATION CPT-97461 Administration single or combination vaccine inc oral 14 :01:24 SUPERVISOR FABRICATION CPT-84640 Influenza High Dose age 65+ 14:01:24 SUPERVISOR FABRICATION CPT-93143 Pneumovax 14:01:24 SUPERVISOR FABRICATION CPT-72908 Venipuncture Draw Fee 10:36:48 CDT CPT-000 Give Appropriate Flu Vaccine 15:20:11 SUPERVISOR FABRICATION CPT-26908 Administration single or combination vaccine inc oral 15 :50:33 SUPERVISOR FABRICATION CPT-74469 Influenza High Dose age 65+ 15:50:33 SUPERVISOR FABRICATION CPT-10585 LS spine AP and Lat 15:30:05 SUPERVISOR FABRICATION CPT-23755 Hip comp min 2V 15:30:05 SUPERVISOR FABRICATION CPT-40012 Postop F/U Visit 17:28:18 CDT CPT-OV Office Visit 15:04:38 CDT CPT-09942 Bladder Scan 15:58:26 CDT CPT-51929 Cystoscopy 15:58:26 CDT CPT-OV Office Visit 16:15:09 CDT CPT-000 Give Appropriate Flu Vaccine 16:33:10 SUPERVISOR FABRICATION CPT-19774 Administration single or combination vaccine inc oral 19 :21:12 SUPERVISOR FABRICATION CPT-46988 Influenza split virus > age 3 19:21:12 SUPERVISOR FABRICATION
--- OUTSIDE RECORDS SUMMARY | 2017-11-11 07:34 | XMS REPORT | Clinical Summary ---
Author Author Admin, IMTIAZ Organization [facility] Address Unknown Phone Unavailable Allergies, Adverse [...] 1 po BID x 7 days SULFAMETHOXAZOLE-TRIMETHOPRIM 28574742496 Active Jamal Burrell MD Active FOSAMAX 70 MG TABS 1 po qweek. Take 30min prior to first food/drink. Avoid lying down x 1 hour. ALENDRONATE SODIUM 24068371732 Active Nadir Hector MD Active AMOXICILLIN 500 MG CAPS 2 po BID x 10 days AMOXICILLIN 91130363548 No Longer Active Nadir Hector MD Active GLUCOTROL XL 5 MG [id number] one tablet daily GLIPIZIDE 72985253561 Active Nadir Hector MD Active JANUVIA 100 MG TABS 1 tablet by mouth daily SITAGLIPTIN PHOSPHATE 82093792547 No Longer Active Nadir Hector MD Active JANUVIA 100 MG TABS Take 1 tab daily SITAGLIPTIN PHOSPHATE 42824279834 No Longer Active Sharon Nuñez Active MACROBID 100 MG CAP 1 cap by mouth twice daily NITROFURANTOIN MONOHYD MACRO 03185667033 No Longer Active Crystal Fernández APRN Active MACRODANTIN 100 MG CAPS 1 capsule by mouth twice daily for seven days NITROFURANTOIN MACROCRYSTAL 43470560190 No Longer Active Ro Yang RN Active BACTRIM DS 800-160 MG TABS one tablet twice a day for seven days SULFAMETHOXAZOLE-TRIMETHOPRIM 75159869184 No Longer Active Sancho Rhodeseau HEMANTH Active BACTRIM DS 800-160 MG TABS TAKE ONE TABLET BY MOUTH TWICE DAILY FOR 7 DAYS SULFAMETHOXAZOLE-TRIMETHOPRIM 80719676210 No Longer Active Viviana Lal RN Active CIPRO 250 MG TABS TAKE ONE TABLET BY MOUTH TWICE DAILY FOR 5 DAYS CIPROFLOXACIN HCL 13862681417 No Longer Active Viviana Lal RN Active FLEXERIL 10 MG TABS 1/2 TO 1 TABLET Q12H NEEDED CYCLOBENZAPRINE HCL 83797977077 No Longer Active Viviana Lal RN Active AMLODIPINE BESYLATE 5 MG TABS 1 1/2 daily AMLODIPINE BESYLATE 58500207802 Active Nadir Hector MD Active ONGLYZA 5 MG TABS 1 QAM SAXAGLIPTIN HCL 98362511268 No Longer Active Nadir Hector MD Active AMLODIPINE BESYLATE 5 MG TABS 1 1/2 TABLET DAILY AMLODIPINE BESYLATE 70756508407 No Longer Active Nadir Hector MD Active LORTAB 5-500 MG TABS 1 BY MOUTH Q6H NEEDED HYDROCODONE- ACETAMINOPHEN 74927322400 No Longer Active Nadir Hector MD Active ACTOS 45 MG TABS 1 QD PIOGLITAZONE HCL 78547261739 No Longer Active Nadir Hector MD Active BACTRIM DS 800-160 MG TAB 1 tab by mouth twice daily TRIMETHOPRIM-SULFAMETHOXAZOLE 67216742908 No Longer Active Nadir Hector MD Active CALCIUM + D 600-200 MG-UNIT TABS 1 TABLET TWO TIMES A DAY CALCIUM CARBONATE-VITAMIN D 72716895637 Active Ro Yang RN Active METOPROLOL SUCCINATE 25 MG [id number] 1 QAM METOPROLOL SUCCINATE 36047784907 Active Nadir Hector MD Active AMARYL 4 MG TABS 1 QD GLIMEPIRIDE 98584054281 Active Nadir Hector MD Active LOVASTATIN 40 MG TABS 1 QD LOVASTATIN 93027999741 Active Nadir Hector MD Active GLUCOPHAGE 1000 MG TABS 1 TABLET TWO TIMES A DAY METFORMIN HCL 19614399371 Active Nadir Hector MD Active MAXZIDE-25 37.5-25 MG TABS 1 QD TRIAMTERENE-HCTZ 33130235546 Active Nadir Hector MD Active ACCUPRIL 40 MG TABS 1 QD QUINAPRIL HCL 92607063818 Active Nadir Hector MD Active BACTRIM DS 800-160 MG TAB 1 tab by mouth twice daily BACTRIM DS 800-160 MG TAB TRIMETHOPRIM-SULFAMETHOXAZOLE Inactive ACTOS 45 MG TABS 1 QD ACTOS 45 MG TABS 892033 PIOGLITAZONE HCL Inactive LORTAB 5-500 MG TABS 1 BY MOUTH Q6H NEEDED LORTAB 5-500 MG TABS HYDROCODONE-ACETAMINOPHEN Inactive AMLODIPINE BESYLATE 5 MG TABS 1 1/2 TABLET DAILY AMLODIPINE BESYLATE 5 MG TABS 382688 AMLODIPINE BESYLATE Inactive ONGLYZA 5 MG TABS 1 QAM ONGLYZA 5 MG TABS SAXAGLIPTIN HCL Inactive FLEXERIL 10 MG TABS 1/2 TO 1 TABLET Q12H NEEDED FLEXERIL 10 MG TABS CYCLOBENZAPRINE HCL Inactive CIPRO 250 MG TABS TAKE ONE TABLET BY MOUTH TWICE DAILY FOR 5 DAYS CIPRO 250 MG TABS 098110 CIPROFLOXACIN HCL Inactive BACTRIM DS 800-160 MG TABS TAKE ONE TABLET BY MOUTH TWICE DAILY FOR 7 DAYS BACTRIM DS 800-160 MG TABS SULFAMETHOXAZOLE-TRIMETHOPRIM Inactive BACTRIM DS 800-160 MG TABS one tablet twice a day for seven days BACTRIM DS 800-160 MG TABS SULFAMETHOXAZOLE-TRIMETHOPRIM Inactive MACROBID 100 MG CAP 1 cap by mouth twice daily MACROBID 100 MG CAP 081344 NITROFURANTOIN MONOHYD MACRO Inactive JANUVIA 100 MG TABS Take 1 tab daily JANUVIA 100 MG TABS SITAGLIPTIN PHOSPHATE Inactive MACRODANTIN 100 MG CAPS 1 capsule by mouth twice daily for seven days MACRODANTIN 100 MG CAPS 676503 NITROFURANTOIN MACROCRYSTAL Inactive AMOXICILLIN 500 MG CAPS 2 po BID x 10 days AMOXICILLIN 500 MG CAPS 755898 AMOXICILLIN Inactive Advance Directives Directive Description Start Date PERMISSION TO SHARE Immunizations Vaccine Administration Date Value Standard Description pneumococcal immunization administered Pneumovax 23 [CVX33] pneumococcal polysaccharide vaccine, 23 valent Seasonal influenza vaccine, injectable, containing preservative, for > 3 years old (Afluria, FluLaval, Fluzone, Fluvirin, Fluarix, Agriflu(>=18 yo)) Fluzone (>3 yrs.) [[id number]] Influenza, seasonal, injectable Vital Signs Date Name [...] HGBA1C - Chemistry sodium, serum 140 mmol/L 580-015 8664/07/23 potassium, serum 4.5 mmol/L 3.5-5.2 chloride, serum [...] 5.0-8.5 Encounters Code Encounter Date Provider Facility CPT-97618 Level 4 Est. Patient 14:21:01 NEONATAL NURSE Nadir Hector MD [facility] CPT-84980 Level 3 Est. Patient 16:41:34 CDT Nadir Hector MD [facility] CPT-03867 Level 4 Est. Patient 13:54:35 NEONATAL NURSE Nadir Hector MD [facility] CPT-29727 Level 3 Est. Patient 15:51:21 CDT Nadir Hector MD [facility] CPT-19725 Level 4 New Patient 15:58:26 CDT Catalino Irene MD [facility] CPT-67591 Level 4 Est. Patient 15:42:38 NEONATAL NURSE Nadir Hector MD [facility] Procedures Code Procedure Name Date Entry Date Standard Description CPT-24111 Bone Density 08:41:23 NEONATAL NURSE CPT-000 Give Appropriate Flu Vaccine 13:54:35 NEONATAL NURSE CPT-000 Give Pneumovax 13:54:35 NEONATAL NURSE CPT-93440 Administration 2+ single or combination vaccines inc oral 14:01:24 NEONATAL NURSE CPT-31091 Administration single or combination vaccine inc oral 14 :01:24 NEONATAL NURSE CPT-96730 Influenza High Dose age 65+ 14:01:24 NEONATAL NURSE CPT-68514 Pneumovax 14:01:24 NEONATAL NURSE CPT-94724 Venipuncture Draw Fee 10:36:48 CDT CPT-000 Give Appropriate Flu Vaccine 15:20:11 NEONATAL NURSE CPT-21011 Administration single or combination vaccine inc oral 15 :50:33 NEONATAL NURSE CPT-55909 Influenza High Dose age 65+ 15:50:33 NEONATAL NURSE CPT-11163 LS spine AP and Lat 15:30:05 NEONATAL NURSE CPT-60720 Hip comp min 2V 15:30:05 NEONATAL NURSE CPT-39586 Postop F/U Visit 17:28:18 CDT CPT-OV Office Visit 15:04:38 CDT CPT-24619 Bladder Scan 15:58:26 CDT CPT-85236 Cystoscopy 15:58:26 CDT CPT-OV Office Visit 16:15:09 CDT CPT-000 Give Appropriate Flu Vaccine 16:33:10 NEONATAL NURSE CPT-24377 Administration single or combination vaccine inc oral 19 :21:12 NEONATAL NURSE CPT-38205 Influenza split virus > age 3 19:21:12 NEONATAL NURSE
--- OUTSIDE RECORDS SUMMARY | 2017-11-11 07:35 | XMS REPORT | Clinical Summary ---
Author Author Admin, IMTIAZ Organization [facility] Address Unknown Phone Unavailable Allergies, Adverse [...] general medical examination at a [facility] care facility PERIPHERAL NEUROPATHY 356.9 Active [...] MG ORAL TABS 1 daily SITAGLIPTIN PHOSPHATE 59098330088 Active Nadir Hector MD Active GLUCOTROL XL 5 MG [id number] one tablet daily GLIPIZIDE 47134301069 No Longer Active Nadir Hector MD Active BACTRIM DS 800-160 MG TABS 1 po BID x 7 days SULFAMETHOXAZOLE-TRIMETHOPRIM 71665181967 No Longer Active Jamal Burrell MD Active FOSAMAX 70 MG TABS 1 po qweek. Take 30min prior to first food/drink. Avoid lying down x 1 hour. ALENDRONATE SODIUM 24282731431 Active Nadir Hector MD Active AMOXICILLIN 500 MG CAPS 2 po BID x 10 days AMOXICILLIN 80452622608 No Longer Active Nadir Hector MD Active JANUVIA 100 MG TABS 1 tablet by mouth daily SITAGLIPTIN PHOSPHATE 49240214583 No Longer Active Nadir Hector MD Active JANUVIA 100 MG TABS Take 1 tab daily SITAGLIPTIN PHOSPHATE 53179226984 No Longer Active Sharon Nuñez Active MACROBID 100 MG CAP 1 cap by mouth twice daily NITROFURANTOIN MONOHYD MACRO 21646137952 No Longer Active Crystal Fernández APRN Active MACRODANTIN 100 MG CAPS 1 capsule by mouth twice daily for seven days NITROFURANTOIN MACROCRYSTAL 20913075825 No Longer Active Ro Yang RN Active BACTRIM DS 800-160 MG TABS one tablet twice a day for seven days SULFAMETHOXAZOLE-TRIMETHOPRIM 38489524814 No Longer Active Sancho HEMANTH [place] Active BACTRIM DS 800-160 MG TABS TAKE ONE TABLET BY MOUTH TWICE DAILY FOR 7 DAYS SULFAMETHOXAZOLE-TRIMETHOPRIM 93810550003 No Longer Active Viviana Lal RN Active CIPRO 250 MG TABS TAKE ONE TABLET BY MOUTH TWICE DAILY FOR 5 DAYS CIPROFLOXACIN HCL 35158101603 No Longer Active Viviana Lal RN Active FLEXERIL 10 MG TABS 1/2 TO 1 TABLET Q12H NEEDED CYCLOBENZAPRINE HCL 11579167772 No Longer Active Viviana Lal RN Active AMLODIPINE BESYLATE 5 MG TABS 1 1/2 daily AMLODIPINE BESYLATE 13745330992 Active Nadir Hector MD Active ONGLYZA 5 MG TABS 1 QAM SAXAGLIPTIN HCL 15430158925 No Longer Active Nadir Hector MD Active AMLODIPINE BESYLATE 5 MG TABS 1 1/2 TABLET DAILY AMLODIPINE BESYLATE 73602725472 No Longer Active Nadir Hector MD Active LORTAB 5-500 MG TABS 1 BY MOUTH Q6H NEEDED HYDROCODONE- ACETAMINOPHEN 09196802802 No Longer Active Nadir Hector MD Active ACTOS 45 MG TABS 1 QD PIOGLITAZONE HCL 38388207094 No Longer Active Nadir Hector MD Active BACTRIM DS 800-160 MG TAB 1 tab by mouth twice daily TRIMETHOPRIM-SULFAMETHOXAZOLE 50087012723 No Longer Active Nadir Hector MD Active CALCIUM + D 600-200 MG-UNIT TABS 1 TABLET TWO TIMES A DAY CALCIUM CARBONATE-VITAMIN D 55059394318 Active Ro Trey CHAMPION Active METOPROLOL SUCCINATE 25 MG [id number] 1 QAM METOPROLOL SUCCINATE 26639961713 Active Nadir Hector MD Active AMARYL 4 MG TABS 1 QD GLIMEPIRIDE 31773151748 Active Nadir Hector MD Active LOVASTATIN 40 MG TABS 1 QD LOVASTATIN 61123419661 Active Nadir Hector MD Active GLUCOPHAGE 1000 MG TABS 1 TABLET TWO TIMES A DAY METFORMIN HCL 23071473591 Active Nadir Hector MD Active MAXZIDE-25 37.5-25 MG TABS 1 QD TRIAMTERENE-HCTZ 61874185490 Active Nadir Hector MD Active ACCUPRIL 40 MG TABS 1 QD QUINAPRIL HCL 69157078545 Active Nadir Hector MD Active BACTRIM DS 800-160 MG TAB 1 tab by mouth twice daily BACTRIM DS 800-160 MG TAB TRIMETHOPRIM-SULFAMETHOXAZOLE Inactive ACTOS 45 MG TABS 1 QD ACTOS 45 MG TABS 980565 PIOGLITAZONE HCL Inactive LORTAB 5-500 MG TABS 1 BY MOUTH Q6H NEEDED LORTAB 5-500 MG TABS HYDROCODONE-ACETAMINOPHEN Inactive AMLODIPINE BESYLATE 5 MG TABS 1 1/2 TABLET DAILY AMLODIPINE BESYLATE 5 MG TABS 649051 AMLODIPINE BESYLATE Inactive ONGLYZA 5 MG TABS [...] mouth twice daily MACROBID 100 MG CAP 775358 NITROFURANTOIN MONOHYD MACRO Inactive JANUVIA 100 MG TABS Take 1 tab daily JANUVIA 100 MG TABS SITAGLIPTIN PHOSPHATE Inactive GLUCOTROL XL 5 MG [id number] one tablet daily GLUCOTROL XL 5 MG [id number] GLIPIZIDE Inactive MACRODANTIN 100 MG CAPS 1 capsule by mouth twice daily for seven days MACRODANTIN 100 MG CAPS 210207 NITROFURANTOIN MACROCRYSTAL Inactive AMOXICILLIN 500 MG CAPS 2 po BID x 10 days AMOXICILLIN 500 MG CAPS 526924 AMOXICILLIN Inactive BACTRIM DS 800-160 MG TABS [...] Fluvirin, Fluarix, Agriflu(>=18 yo)) Fluzone (>3 yrs.) [[id number]] Influenza, seasonal, injectable Vital Signs Date Name [...] HGBA1C - Chemistry sodium, serum 140 mmol/L 505-746 2948/07/23 potassium, serum 4.5 mmol/L 3.5-5.2 chloride, serum [...] Negative Encounters Code Encounter Date Provider Facility CPT-63113 Level 3 Est. Patient 16:43:04 SUPERVISOR TELEPHONE CLERKS Nadir Hector MD [facility] CPT-50270 Level 4 Est. Patient 14:21:01 SUPERVISOR TELEPHONE CLERKS Nadir Hector MD [facility] CPT-85188 Level 3 Est. Patient 16:41:34 CDT Nadir Hector MD [facility] CPT-32542 Level 4 Est. Patient 13:54:35 SUPERVISOR TELEPHONE CLERKS Nadir Hector MD [facility] CPT-00088 Level 3 Est. Patient 15:51:21 CDT Nadir Hector MD [facility] CPT-15262 Level 4 New Patient 15:58:26 CDT Catalino Irene MD [facility] CPT-66197 Level 4 Est. Patient 15:42:38 SUPERVISOR TELEPHONE CLERKS Nadir Hector MD [facility] Procedures Code Procedure Name Date Entry Date Standard Description CPT-56151 Bone Density 08:41:23 SUPERVISOR TELEPHONE CLERKS CPT-000 Give Appropriate Flu Vaccine 13:54:35 SUPERVISOR TELEPHONE CLERKS CPT-000 Give Pneumovax 13:54:35 SUPERVISOR TELEPHONE CLERKS CPT-66586 Administration 2+ single or combination vaccines inc oral 14:01:24 SUPERVISOR TELEPHONE CLERKS CPT-59118 Administration single or combination vaccine inc oral 14 :01:24 SUPERVISOR TELEPHONE CLERKS CPT-55211 Influenza High Dose age 65+ 14:01:24 SUPERVISOR TELEPHONE CLERKS CPT-72819 Pneumovax 14:01:24 SUPERVISOR TELEPHONE CLERKS CPT-20768 Venipuncture Draw Fee 10:36:48 CDT CPT-000 Give Appropriate Flu Vaccine 15:20:11 SUPERVISOR TELEPHONE CLERKS CPT-05022 Administration single or combination vaccine inc oral 15 :50:33 SUPERVISOR TELEPHONE CLERKS CPT-62175 Influenza High Dose age 65+ 15:50:33 SUPERVISOR TELEPHONE CLERKS CPT-84105 LS spine AP and Lat 15:30:05 SUPERVISOR TELEPHONE CLERKS CPT-03818 Hip comp min 2V 15:30:05 SUPERVISOR TELEPHONE CLERKS CPT-41942 Postop F/U Visit 17:28:18 CDT CPT-OV Office Visit 15:04:38 CDT CPT-08543 Bladder Scan 15:58:26 CDT CPT-92124 Cystoscopy 15:58:26 CDT CPT-OV Office Visit 16:15:09 CDT CPT-000 Give Appropriate Flu Vaccine 16:33:10 SUPERVISOR TELEPHONE CLERKS CPT-10562 Administration single or combination vaccine inc oral 19 :21:12 SUPERVISOR TELEPHONE CLERKS CPT-05835 Influenza split virus > age 3 19:21:12 SUPERVISOR TELEPHONE CLERKS
--- OUTSIDE RECORDS SUMMARY | 2017-11-11 07:35 | XMS REPORT | Clinical Summary ---
Author Author Admin, IMTIAZ Organization [facility] Address Unknown Phone Unavailable Allergies, Adverse Reactions, [...] general medical examination at a [facility] facility PERIPHERAL NEUROPATHY 356.9 Active Nadir [...] MG ORAL TABS 1 daily SITAGLIPTIN PHOSPHATE 27196439171 Active Nadir Hector MD Active GLUCOTROL XL 5 MG [id number] one tablet daily GLIPIZIDE 16812033864 No Longer Active Nadir Hector MD Active BACTRIM DS 800-160 MG TABS 1 po BID x 7 days SULFAMETHOXAZOLE-TRIMETHOPRIM 24854985639 Active Jamal Burrell MD Active FOSAMAX 70 MG TABS 1 po qweek. Take 30min prior to first food/drink. Avoid lying down x 1 hour. ALENDRONATE SODIUM 87107374786 Active Nadir Hector MD Active AMOXICILLIN 500 MG CAPS 2 po BID x 10 days AMOXICILLIN 66823455937 No Longer Active Nadir Hector MD Active JANUVIA 100 MG TABS 1 tablet by mouth daily SITAGLIPTIN PHOSPHATE 16806234742 No Longer Active Nadir Hector MD Active JANUVIA 100 MG TABS Take 1 tab daily SITAGLIPTIN PHOSPHATE 06383436030 No Longer Active Sharon Nuñez Active MACROBID 100 MG CAP 1 cap by mouth twice daily NITROFURANTOIN MONOHYD MACRO 07912749750 No Longer Active Crystal Fernández APRN Active MACRODANTIN 100 MG CAPS 1 capsule by mouth twice daily for seven days NITROFURANTOIN MACROCRYSTAL 82380830425 No Longer Active Ronatan Yang RN Active BACTRIM DS 800-160 MG TABS one tablet twice a day for seven days SULFAMETHOXAZOLE-TRIMETHOPRIM 22453913378 No Longer Active SanchoHEMANTH Maria Active BACTRIM DS 800-160 MG TABS TAKE ONE TABLET BY MOUTH TWICE DAILY FOR 7 DAYS SULFAMETHOXAZOLE-TRIMETHOPRIM 24392731662 No Longer Active Viviana Lal RN Active CIPRO 250 MG TABS TAKE ONE TABLET BY MOUTH TWICE DAILY FOR 5 DAYS CIPROFLOXACIN HCL 51768948054 No Longer Active Viviana Lal RN Active FLEXERIL 10 MG TABS 1/2 TO 1 TABLET Q12H NEEDED CYCLOBENZAPRINE HCL 97563947161 No Longer Active Viviana Lal RN Active AMLODIPINE BESYLATE 5 MG TABS 1 1/2 daily AMLODIPINE BESYLATE 91885934205 Active Nadir Hector MD Active ONGLYZA 5 MG TABS 1 QAM SAXAGLIPTIN HCL 35784131886 No Longer Active Nadir Hector MD Active AMLODIPINE BESYLATE 5 MG TABS 1 1/2 TABLET DAILY AMLODIPINE BESYLATE 06360679141 No Longer Active Nadir Hector MD Active LORTAB 5-500 MG TABS 1 BY MOUTH Q6H NEEDED HYDROCODONE- ACETAMINOPHEN 42229145786 No Longer Active Nadir Hector MD Active ACTOS 45 MG TABS 1 QD PIOGLITAZONE HCL 44761414194 No Longer Active Nadir Hector MD Active BACTRIM DS 800-160 MG TAB 1 tab by mouth twice daily TRIMETHOPRIM-SULFAMETHOXAZOLE 04908868793 No Longer Active Nadir Hector MD Active CALCIUM + D 600-200 MG-UNIT TABS 1 TABLET TWO TIMES A DAY CALCIUM CARBONATE-VITAMIN D 96993072039 Active Ro Trey RN Active METOPROLOL SUCCINATE 25 MG [id number] 1 QAM METOPROLOL SUCCINATE 81387185076 Active Nadir Hector MD Active AMARYL 4 MG TABS 1 QD GLIMEPIRIDE 96836080204 Active Nadir Hector MD Active LOVASTATIN 40 MG TABS 1 QD LOVASTATIN 82049190847 Active Nadir Hector MD Active GLUCOPHAGE 1000 MG TABS 1 TABLET TWO TIMES A DAY METFORMIN HCL 08171611249 Active Nadir Hector MD Active MAXZIDE-25 37.5-25 MG TABS 1 QD TRIAMTERENE-HCTZ 52787245828 Active Nadir Hector MD Active ACCUPRIL 40 MG TABS 1 QD QUINAPRIL HCL 06425291108 Active Nadir Hector MD Active BACTRIM DS 800-160 MG TAB 1 tab by mouth twice daily BACTRIM DS 800-160 MG TAB TRIMETHOPRIM-SULFAMETHOXAZOLE Inactive ACTOS 45 MG TABS 1 QD ACTOS 45 MG TABS 301694 PIOGLITAZONE HCL Inactive LORTAB 5-500 MG TABS 1 BY MOUTH Q6H NEEDED LORTAB 5-500 MG TABS HYDROCODONE-ACETAMINOPHEN Inactive AMLODIPINE BESYLATE 5 MG TABS 1 1/2 TABLET DAILY AMLODIPINE BESYLATE 5 MG TABS 785784 AMLODIPINE BESYLATE Inactive ONGLYZA 5 MG TABS [...] mouth twice daily MACROBID 100 MG CAP 254806 NITROFURANTOIN MONOHYD MACRO Inactive JANUVIA 100 MG TABS Take 1 tab daily JANUVIA 100 MG TABS SITAGLIPTIN PHOSPHATE Inactive GLUCOTROL XL 5 MG [id number] one tablet daily GLUCOTROL XL 5 MG [id number] GLIPIZIDE Inactive MACRODANTIN 100 MG CAPS 1 capsule by mouth twice daily for seven days MACRODANTIN 100 MG CAPS 952559 NITROFURANTOIN MACROCRYSTAL Inactive AMOXICILLIN 500 MG CAPS 2 po BID x 10 days AMOXICILLIN 500 MG CAPS 734403 AMOXICILLIN Inactive Advance Directives Directive Description Start Date PERMISSION TO SHARE Immunizations Vaccine Administration Date Value Standard Description pneumococcal immunization administered Pneumovax 23 [CVX33] pneumococcal polysaccharide vaccine, 23 valent Seasonal influenza vaccine, injectable, containing preservative, for > 3 years old (Afluria, FluLaval, Fluzone, Fluvirin, Fluarix, Agriflu(>=18 yo)) Fluzone (>3 yrs.) [[id number]] Influenza, seasonal, injectable Vital Signs Date Name [...] HGBA1C - Chemistry sodium, serum 140 mmol/L 994-344 6892/07/23 potassium, serum 4.5 mmol/L 3.5-5.2 chloride, serum [...] 5.0-8.5 Encounters Code Encounter Date Provider Facility CPT-22746 Level 3 Est. Patient 16:43:04 TABLE RUNNER Nadir Hector MD [facility] CPT-24433 Level 4 Est. Patient 14:21:01 TABLE RUNNER Nadir Hector MD [facility] CPT-73814 Level 3 Est. Patient 16:41:34 CDT Nadir Hector MD [facility] CPT-88404 Level 4 Est. Patient 13:54:35 TABLE RUNNER Nadir Hector MD [facility] CPT-75914 Level 3 Est. Patient 15:51:21 CDT Nadir Hector MD [facility] CPT-76068 Level 4 New Patient 15:58:26 CDT Catalino [facility] CPT-65360 Level 4 Est. Patient 15:42:38 TABLE RUNNER Nadir Hector MD [facility] Procedures Code Procedure Name Date Entry Date Standard Description CPT-59674 Bone Density 08:41:23 TABLE RUNNER CPT-000 Give Appropriate Flu Vaccine 13:54:35 TABLE RUNNER CPT-000 Give Pneumovax 13:54:35 TABLE RUNNER CPT-25826 Administration 2+ single or combination vaccines inc oral 14:01:24 TABLE RUNNER CPT-05399 Administration single or combination vaccine inc oral 14 :01:24 TABLE RUNNER CPT-35066 Influenza High Dose age 65+ 14:01:24 TABLE RUNNER CPT-50295 Pneumovax 14:01:24 TABLE RUNNER CPT-76366 Venipuncture Draw Fee 10:36:48 CDT CPT-000 Give Appropriate Flu Vaccine 15:20:11 TABLE RUNNER CPT-58340 Administration single or combination vaccine inc oral 15 :50:33 TABLE RUNNER CPT-49853 Influenza High Dose age 65+ 15:50:33 TABLE RUNNER CPT-83160 LS spine AP and Lat 15:30:05 TABLE RUNNER CPT-85763 Hip comp min 2V 15:30:05 TABLE RUNNER CPT-61270 Postop F/U Visit 17:28:18 CDT CPT-OV Office Visit 15:04:38 CDT CPT-98221 Bladder Scan 15:58:26 CDT CPT-35569 Cystoscopy 15:58:26 CDT CPT-OV Office Visit 16:15:09 CDT CPT-000 Give Appropriate Flu Vaccine 16:33:10 TABLE RUNNER CPT-52978 Administration single or combination vaccine inc oral 19 :21:12 TABLE RUNNER CPT-08753 Influenza split virus > age 3 19:21:12 TABLE RUNNER
--- OUTSIDE RECORDS SUMMARY | 2017-11-11 07:36 | XMS REPORT | Clinical Summary ---
[...] general medical examination at a [facility] care facility PERIPHERAL NEUROPATHY 356.9 [...] MG ORAL TABS 1 daily SITAGLIPTIN PHOSPHATE 37480716968 Active Nadir Hector MD Active GLUCOTROL XL 5 MG [id number] one tablet daily GLIPIZIDE 13196599901 No Longer Active Nadir Hector MD Active BACTRIM DS 800-160 MG TABS 1 po BID x 7 days SULFAMETHOXAZOLE-TRIMETHOPRIM 19602307813 Active Jamal Burrell MD Active FOSAMAX 70 MG TABS 1 po qweek. Take 30min prior to first food/drink. Avoid lying down x 1 hour. ALENDRONATE SODIUM 89035207891 Active Nadir Hector MD Active AMOXICILLIN 500 MG CAPS 2 po BID x 10 days AMOXICILLIN 49348000528 No Longer Active Nadir Hector MD Active JANUVIA 100 MG TABS 1 tablet by mouth daily SITAGLIPTIN PHOSPHATE 61474732717 No Longer Active Nadir Hector MD Active JANUVIA 100 MG TABS Take 1 tab daily SITAGLIPTIN PHOSPHATE 48768472085 No Longer Active Sharon Nuñez Active MACROBID 100 MG CAP 1 cap by mouth twice daily NITROFURANTOIN MONOHYD MACRO 92044696126 No Longer Active Crystal Fernández APRN Active MACRODANTIN 100 MG CAPS 1 capsule by mouth twice daily for seven days NITROFURANTOIN MACROCRYSTAL 70009238975 No Longer Active Ronatan Yang RN Active BACTRIM DS 800-160 MG TABS one tablet twice a day for seven days SULFAMETHOXAZOLE-TRIMETHOPRIM 57618717728 No Longer Active SanchoHEMANTH Maria Active BACTRIM DS 800-160 MG TABS TAKE ONE TABLET BY MOUTH TWICE DAILY FOR 7 DAYS SULFAMETHOXAZOLE-TRIMETHOPRIM 97206284758 No Longer Active Viviana Lal RN Active CIPRO 250 MG TABS TAKE ONE TABLET BY MOUTH TWICE DAILY FOR 5 DAYS CIPROFLOXACIN HCL 90716929292 No Longer Active Viviana Lal RN Active FLEXERIL 10 MG TABS 1/2 TO 1 TABLET Q12H NEEDED CYCLOBENZAPRINE HCL 94797154721 No Longer Active Viviana Lal RN Active AMLODIPINE BESYLATE 5 MG TABS 1 1/2 daily AMLODIPINE BESYLATE 01825074929 Active Nadir Hector MD Active ONGLYZA 5 MG TABS 1 QAM SAXAGLIPTIN HCL 87949337581 No Longer Active Nadir Hector MD Active AMLODIPINE BESYLATE 5 MG TABS 1 1/2 TABLET DAILY AMLODIPINE BESYLATE 61713837816 No Longer Active Nadir Hector MD Active LORTAB 5-500 MG TABS 1 BY MOUTH Q6H NEEDED HYDROCODONE- ACETAMINOPHEN 28579621798 No Longer Active Nadir Hector MD Active ACTOS 45 MG TABS 1 QD PIOGLITAZONE HCL 04528590123 No Longer Active Nadir Hector MD Active BACTRIM DS 800-160 MG TAB 1 tab by mouth twice daily TRIMETHOPRIM-SULFAMETHOXAZOLE 34807959912 No Longer Active Nadir Hector MD Active CALCIUM + D 600-200 MG-UNIT TABS 1 TABLET TWO TIMES A DAY CALCIUM CARBONATE-VITAMIN D 07876805292 Active Ro Trey RN Active METOPROLOL SUCCINATE 25 MG XM50A-MMS 1 QAM METOPROLOL SUCCINATE 55491420949 Active Nadir Hector MD Active AMARYL 4 MG TABS 1 QD GLIMEPIRIDE 32839915140 Active Nadir Hector MD Active LOVASTATIN 40 MG TABS 1 QD LOVASTATIN 30740987666 Active Nadir Hector MD Active GLUCOPHAGE 1000 MG TABS 1 TABLET TWO TIMES A DAY METFORMIN HCL 04750050916 Active Nadir Hector MD Active MAXZIDE-25 37.5-25 MG TABS 1 QD TRIAMTERENE-HCTZ 82197962250 Active Nadir Hector MD Active ACCUPRIL 40 MG TABS 1 QD QUINAPRIL HCL 49195198679 Active Nadir Hector MD Active BACTRIM DS 800-160 MG TAB 1 tab by mouth twice daily BACTRIM DS 800-160 MG TAB TRIMETHOPRIM-SULFAMETHOXAZOLE Inactive ACTOS 45 MG TABS 1 QD ACTOS 45 MG TABS 937355 PIOGLITAZONE HCL Inactive LORTAB 5-500 MG TABS 1 BY MOUTH Q6H NEEDED LORTAB 5-500 MG TABS HYDROCODONE-ACETAMINOPHEN Inactive AMLODIPINE BESYLATE 5 MG TABS 1 1/2 TABLET DAILY AMLODIPINE BESYLATE 5 MG TABS 192743 AMLODIPINE BESYLATE Inactive ONGLYZA 5 MG TABS [...] mouth twice daily MACROBID 100 MG CAP 155125 NITROFURANTOIN MONOHYD MACRO Inactive JANUVIA 100 MG TABS Take 1 tab daily JANUVIA 100 MG TABS SITAGLIPTIN PHOSPHATE Inactive GLUCOTROL XL 5 MG [id number] one tablet daily GLUCOTROL XL 5 MG [id number] GLIPIZIDE Inactive MACRODANTIN 100 MG CAPS 1 capsule by mouth twice daily for seven days MACRODANTIN 100 MG CAPS 683855 NITROFURANTOIN MACROCRYSTAL Inactive AMOXICILLIN 500 MG CAPS 2 po BID x 10 days AMOXICILLIN 500 MG CAPS 643039 AMOXICILLIN Inactive Advance Directives Directive Description Start Date PERMISSION TO SHARE Immunizations Vaccine Administration Date Value Standard Description pneumococcal immunization administered Pneumovax 23 [CVX33] pneumococcal polysaccharide vaccine, 23 valent Seasonal influenza vaccine, injectable, containing preservative, for > 3 years old (Afluria, FluLaval, Fluzone, Fluvirin, Fluarix, Agriflu(>=18 yo)) Fluzone (>3 yrs.) [[id number]] Influenza, seasonal, injectable Vital Signs Date Name [...] HGBA1C - Chemistry sodium, serum 140 mmol/L 491-149 6157/07/23 potassium, serum 4.5 mmol/L 3.5-5.2 chloride, serum [...] 5.0-8.5 Encounters Code Encounter Date Provider Facility CPT-34499 Level 3 Est. Patient 16:43:04 DUMP GROUNDS CHECKER Nadir Hector MD [facility] CPT-10868 Level 4 Est. Patient 14:21:01 DUMP GROUNDS CHECKER Nadir Hector MD [facility] CPT-77659 Level 3 Est. Patient 16:41:34 CDT Nadir Hector MD [facility] CPT-02683 Level 4 Est. Patient 13:54:35 DUMP GROUNDS CHECKER Nadir Hector MD [facility] CPT-47371 Level 3 Est. Patient 15:51:21 CDT Nadir Hector MD [facility] CPT-82698 Level 4 New Patient 15:58:26 CDT Catalino [facility] CPT-50695 Level 4 Est. Patient 15:42:38 DUMP GROUNDS CHECKER Nadir Hector MD [facility] Procedures Code Procedure Name Date Entry Date Standard Description CPT-49583 Bone Density 08:41:23 DUMP GROUNDS CHECKER CPT-000 Give Appropriate Flu Vaccine 13:54:35 DUMP GROUNDS CHECKER CPT-000 Give Pneumovax 13:54:35 DUMP GROUNDS CHECKER CPT-81843 Administration 2+ single or combination vaccines inc oral 14:01:24 DUMP GROUNDS CHECKER CPT-00814 Administration single or combination vaccine inc oral 14 :01:24 DUMP GROUNDS CHECKER CPT-45998 Influenza High Dose age 65+ 14:01:24 DUMP GROUNDS CHECKER CPT-61062 Pneumovax 14:01:24 DUMP GROUNDS CHECKER CPT-45321 Venipuncture Draw Fee 10:36:48 CDT CPT-000 Give Appropriate Flu Vaccine 15:20:11 DUMP GROUNDS CHECKER CPT-20335 Administration single or combination vaccine inc oral 15 :50:33 DUMP GROUNDS CHECKER CPT-41573 Influenza High Dose age 65+ 15:50:33 DUMP GROUNDS CHECKER CPT-68576 LS spine AP and Lat 15:30:05 DUMP GROUNDS CHECKER CPT-20254 Hip comp min 2V 15:30:05 DUMP GROUNDS CHECKER CPT-53865 Postop F/U Visit 17:28:18 CDT CPT-OV Office Visit 15:04:38 CDT CPT-52072 Bladder Scan 15:58:26 CDT CPT-54917 Cystoscopy 15:58:26 CDT CPT-OV Office Visit 16:15:09 CDT CPT-000 Give Appropriate Flu Vaccine 16:33:10 DUMP GROUNDS CHECKER CPT-46129 Administration single or combination vaccine inc oral 19 :21:12 DUMP GROUNDS CHECKER CPT-79957 Influenza split virus > age 3 19:21:12 DUMP GROUNDS CHECKER
--- OUTSIDE RECORDS SUMMARY | 2017-11-11 07:36 | XMS REPORT | Clinical Summary ---
[...] MD Routine general medical examination at a [facility] care facility PERIPHERAL NEUROPATHY [...] MG ORAL TABS 1 daily SITAGLIPTIN PHOSPHATE 99896910151 Active Nadir Hector MD Active GLUCOTROL XL 5 MG [id number] one tablet daily GLIPIZIDE 72059346070 No Longer Active Nadir Hector MD Active BACTRIM DS 800-160 MG TABS 1 po BID x 7 days SULFAMETHOXAZOLE-TRIMETHOPRIM 78153143926 Active Jamal Burrell MD Active FOSAMAX 70 MG TABS 1 po qweek. Take 30min prior to first food/drink. Avoid lying down x 1 hour. ALENDRONATE SODIUM 34194586272 Active Nadir Hector MD Active AMOXICILLIN 500 MG CAPS 2 po BID x 10 days AMOXICILLIN 70479397822 No Longer Active Nadir Hector MD Active JANUVIA 100 MG TABS 1 tablet by mouth daily SITAGLIPTIN PHOSPHATE 28276433180 No Longer Active Nadir Hector MD Active JANUVIA 100 MG TABS Take 1 tab daily SITAGLIPTIN PHOSPHATE 02502564266 No Longer Active Sharon Nuñez Active MACROBID 100 MG CAP 1 cap by mouth twice daily NITROFURANTOIN MONOHYD MACRO 29551566518 No Longer Active Crystal Fernández APRN Active MACRODANTIN 100 MG CAPS 1 capsule by mouth twice daily for seven days NITROFURANTOIN MACROCRYSTAL 84110596871 No Longer Active Ronatan Yang RN Active BACTRIM DS 800-160 MG TABS one tablet twice a day for seven days SULFAMETHOXAZOLE-TRIMETHOPRIM 31156611156 No Longer Active SanchoHEMANTH Maria Active BACTRIM DS 800-160 MG TABS TAKE ONE TABLET BY MOUTH TWICE DAILY FOR 7 DAYS SULFAMETHOXAZOLE-TRIMETHOPRIM 64091416054 No Longer Active Viviana Lal RN Active CIPRO 250 MG TABS TAKE ONE TABLET BY MOUTH TWICE DAILY FOR 5 DAYS CIPROFLOXACIN HCL 56185634423 No Longer Active Viviana Lal RN Active FLEXERIL 10 MG TABS 1/2 TO 1 TABLET Q12H NEEDED CYCLOBENZAPRINE HCL 62569340050 No Longer Active Viviana Lal RN Active AMLODIPINE BESYLATE 5 MG TABS 1 1/2 daily AMLODIPINE BESYLATE 62539962616 Active Nadir Hector MD Active ONGLYZA 5 MG TABS 1 QAM SAXAGLIPTIN HCL 56163047758 No Longer Active Nadir Hector MD Active AMLODIPINE BESYLATE 5 MG TABS 1 1/2 TABLET DAILY AMLODIPINE BESYLATE 89486783434 No Longer Active Nadir Hector MD Active LORTAB 5-500 MG TABS 1 BY MOUTH Q6H NEEDED HYDROCODONE- ACETAMINOPHEN 69577526082 No Longer Active Nadir Hector MD Active ACTOS 45 MG TABS 1 QD PIOGLITAZONE HCL 30457054129 No Longer Active Nadir Hector MD Active BACTRIM DS 800-160 MG TAB 1 tab by mouth twice daily TRIMETHOPRIM-SULFAMETHOXAZOLE 07799418840 No Longer Active Nadir Hector MD Active CALCIUM + D 600-200 MG-UNIT TABS 1 TABLET TWO TIMES A DAY CALCIUM CARBONATE-VITAMIN D 89617665232 Active Ro Trey RN Active METOPROLOL SUCCINATE 25 MG WH98B-IPG 1 QAM METOPROLOL SUCCINATE 70733125025 Active Nadir Hectro MD Active AMARYL 4 MG TABS 1 QD GLIMEPIRIDE 47773222672 Active Nadir Hector MD Active LOVASTATIN 40 MG TABS 1 QD LOVASTATIN 30690202659 Active Nadir Hector MD Active GLUCOPHAGE 1000 MG TABS 1 TABLET TWO TIMES A DAY METFORMIN HCL 93064822916 Active Nadir Hector MD Active MAXZIDE-25 37.5-25 MG TABS 1 QD TRIAMTERENE-HCTZ 24776337192 Active Nadir Hector MD Active ACCUPRIL 40 MG TABS 1 QD QUINAPRIL HCL 95387290890 Active Nadir Hector MD Active BACTRIM DS 800-160 MG TAB 1 tab by mouth twice daily BACTRIM DS 800-160 MG TAB TRIMETHOPRIM-SULFAMETHOXAZOLE Inactive ACTOS 45 MG TABS 1 QD ACTOS 45 MG TABS 112016 PIOGLITAZONE HCL Inactive LORTAB 5-500 MG TABS 1 BY MOUTH Q6H NEEDED LORTAB 5-500 MG TABS HYDROCODONE-ACETAMINOPHEN Inactive AMLODIPINE BESYLATE 5 MG TABS 1 1/2 TABLET DAILY AMLODIPINE BESYLATE 5 MG TABS 002222 AMLODIPINE BESYLATE Inactive ONGLYZA 5 MG TABS [...] mouth twice daily MACROBID 100 MG CAP 058351 NITROFURANTOIN MONOHYD MACRO Inactive JANUVIA 100 MG TABS Take 1 tab daily JANUVIA 100 MG TABS SITAGLIPTIN PHOSPHATE Inactive GLUCOTROL XL 5 MG [id number] one tablet daily GLUCOTROL XL 5 MG [id number] GLIPIZIDE Inactive MACRODANTIN 100 MG CAPS 1 capsule by mouth twice daily for seven days MACRODANTIN 100 MG CAPS 869011 NITROFURANTOIN MACROCRYSTAL Inactive AMOXICILLIN 500 MG CAPS 2 po BID x 10 days AMOXICILLIN 500 MG CAPS 613509 AMOXICILLIN Inactive Advance Directives Directive Description Start Date PERMISSION TO SHARE Immunizations Vaccine Administration Date Value Standard Description pneumococcal immunization administered Pneumovax 23 [CVX33] pneumococcal polysaccharide vaccine, 23 valent Seasonal influenza vaccine, injectable, containing preservative, for > 3 years old (Afluria, FluLaval, Fluzone, Fluvirin, Fluarix, Agriflu(>=18 yo)) Fluzone (>3 yrs.) [[id number]] Influenza, seasonal, injectable Vital Signs Date Name [...] HGBA1C - Chemistry sodium, serum 140 mmol/L 711-144 1498/07/23 potassium, serum 4.5 mmol/L 3.5-5.2 chloride, serum [...] 5.0-8.5 Encounters Code Encounter Date Provider Facility CPT-30210 Level 3 Est. Patient 16:43:04 MAINTENANCE SUPERVISOR 2ND SHIFT Nadir Hector MD [facility] CPT-98537 Level 4 Est. Patient 14:21:01 MAINTENANCE SUPERVISOR 2ND SHIFT Nadir Hector MD [facility] CPT-16685 Level 3 Est. Patient 16:41:34 CDT Nadir Hector MD [facility] CPT-05978 Level 4 Est. Patient 13:54:35 MAINTENANCE SUPERVISOR 2ND SHIFT Nadir Hector MD [facility] CPT-78323 Level 3 Est. Patient 15:51:21 CDT Nadir Hector MD [facility] CPT-21436 Level 4 New Patient 15:58:26 CDT [facility]-33327 Level 4 Est. Patient 15:42:38 MAINTENANCE SUPERVISOR 2ND SHIFT Nadir Hector MD [facility] Procedures Code Procedure Name Date Entry Date Standard Description CPT-91211 Bone Density 08:41:23 MAINTENANCE SUPERVISOR 2ND SHIFT CPT-000 Give Appropriate Flu Vaccine 13:54:35 MAINTENANCE SUPERVISOR 2ND SHIFT CPT-000 Give Pneumovax 13:54:35 MAINTENANCE SUPERVISOR 2ND SHIFT CPT-34956 Administration 2+ single or combination vaccines inc oral 14:01:24 MAINTENANCE SUPERVISOR 2ND SHIFT CPT-27762 Administration single or combination vaccine inc oral 14 :01:24 MAINTENANCE SUPERVISOR 2ND SHIFT CPT-57075 Influenza High Dose age 65+ 14:01:24 MAINTENANCE SUPERVISOR 2ND SHIFT CPT-20099 Pneumovax 14:01:24 MAINTENANCE SUPERVISOR 2ND SHIFT CPT-44901 Venipuncture Draw Fee 10:36:48 CDT CPT-000 Give Appropriate Flu Vaccine 15:20:11 MAINTENANCE SUPERVISOR 2ND SHIFT CPT-32507 Administration single or combination vaccine inc oral 15 :50:33 MAINTENANCE SUPERVISOR 2ND SHIFT CPT-54807 Influenza High Dose age 65+ 15:50:33 MAINTENANCE SUPERVISOR 2ND SHIFT CPT-57427 LS spine AP and Lat 15:30:05 MAINTENANCE SUPERVISOR 2ND SHIFT CPT-85873 Hip comp min 2V 15:30:05 MAINTENANCE SUPERVISOR 2ND SHIFT CPT-74263 Postop F/U Visit 17:28:18 CDT CPT-OV Office Visit 15:04:38 CDT CPT-90635 Bladder Scan 15:58:26 CDT CPT-80425 Cystoscopy 15:58:26 CDT CPT-OV Office Visit 16:15:09 CDT CPT-000 Give Appropriate Flu Vaccine 16:33:10 MAINTENANCE SUPERVISOR 2ND SHIFT CPT-56330 Administration single or combination vaccine inc oral 19 :21:12 MAINTENANCE SUPERVISOR 2ND SHIFT CPT-54103 Influenza split virus > age 3 19:21:12 MAINTENANCE SUPERVISOR 2ND SHIFT
--- OUTSIDE RECORDS SUMMARY | 2017-11-11 07:37 | XMS REPORT | Clinical Summary ---
Author Author Admin, IMTIAZ Organization [facility] Address Unknown Phone Unavailable Allergies, Adverse Reactions, Alerts Allergy Name Reaction Description Start Date Severity Status Provider No Known Allergies Lluvialiliana yLons Conditions or Problems Problem Name Problem Code Onset Date Status Entry Date Provider Comment Standard Description Annotate HYPERTENSION 401.9 Active Nadir Hector MD Unspecified essential hypertension DIABETES MELLITUS 250.00 Active Nadir Hector MD Diabetes mellitus without mention of complication, type II or unspecified type, not stated as uncontrolled HYPERLIPIDEMIA 272.4 Active Nadir Hector MD Other and unspecified hyperlipidemia HEALTH MAINTENANCE EXAM V70.0 Active Naidr Hector MD Routine general medical examination at a [facility] care facility PERIPHERAL NEUROPATHY 356.9 [...] MG ORAL TABS 1 daily SITAGLIPTIN PHOSPHATE 39159134061 Active Nadir Hector MD Active GLUCOTROL XL 5 MG [id number] one tablet daily GLIPIZIDE 06584709386 No Longer Active Nadir Hector MD Active BACTRIM DS 800-160 MG TABS 1 po BID x 7 days SULFAMETHOXAZOLE-TRIMETHOPRIM 92808221206 No Longer Active Jamal Burrell MD Active FOSAMAX 70 MG TABS 1 po qweek. Take 30min prior to first food/drink. Avoid lying down x 1 hour. ALENDRONATE SODIUM 44149258853 Active Nadir Hector MD Active AMOXICILLIN 500 MG CAPS 2 po BID x 10 days AMOXICILLIN 84076353766 No Longer Active Nadir Hector MD Active JANUVIA 100 MG TABS 1 tablet by mouth daily SITAGLIPTIN PHOSPHATE 19594599778 No Longer Active Nadir Hector MD Active JANUVIA 100 MG TABS Take 1 tab daily SITAGLIPTIN PHOSPHATE 09171256827 No Longer Active Sharon Nuñez Active MACROBID 100 MG CAP 1 cap by mouth twice daily NITROFURANTOIN MONOHYD MACRO 34388443929 No Longer Active Crystal Fernández APRN Active MACRODANTIN 100 MG CAPS 1 capsule by mouth twice daily for seven days NITROFURANTOIN MACROCRYSTAL 97651612036 No Longer Active Ro Yang RN Active BACTRIM DS 800-160 MG TABS one tablet twice a day for seven days SULFAMETHOXAZOLE-TRIMETHOPRIM 64032354724 No Longer Active Sancho HEMANTH Camejo Active BACTRIM DS 800-160 MG TABS TAKE ONE TABLET BY MOUTH TWICE DAILY FOR 7 DAYS SULFAMETHOXAZOLE-TRIMETHOPRIM 35045207629 No Longer Active Viviana Lal RN Active CIPRO 250 MG TABS TAKE ONE TABLET BY MOUTH TWICE DAILY FOR 5 DAYS CIPROFLOXACIN HCL 90009897928 No Longer Active Viviana Lal RN Active FLEXERIL 10 MG TABS 1/2 TO 1 TABLET Q12H NEEDED CYCLOBENZAPRINE HCL 49443605099 No Longer Active Viviana Lal RN Active AMLODIPINE BESYLATE 5 MG TABS 1 1/2 daily AMLODIPINE BESYLATE 15729321031 Active Nadir Hector MD Active ONGLYZA 5 MG TABS 1 QAM SAXAGLIPTIN HCL 22726289632 No Longer Active Nadir Hector MD Active AMLODIPINE BESYLATE 5 MG TABS 1 1/2 TABLET DAILY AMLODIPINE BESYLATE 30454022821 No Longer Active Nadir Hector MD Active LORTAB 5-500 MG TABS 1 BY MOUTH Q6H NEEDED HYDROCODONE- ACETAMINOPHEN 29851194025 No Longer Active Nadir Hector MD Active ACTOS 45 MG TABS 1 QD PIOGLITAZONE HCL 70735987232 No Longer Active Nadir Hector MD Active BACTRIM DS 800-160 MG TAB 1 tab by mouth twice daily TRIMETHOPRIM-SULFAMETHOXAZOLE 67793717405 No Longer Active Nadir Hector MD Active CALCIUM + D 600-200 MG-UNIT TABS 1 TABLET TWO TIMES A DAY CALCIUM CARBONATE-VITAMIN D 62811612992 Active Ro Trey CHAMPION Active METOPROLOL SUCCINATE 25 MG [id number] 1 QAM METOPROLOL SUCCINATE 19833392430 Active Nadir Hector MD Active AMARYL 4 MG TABS 1 QD GLIMEPIRIDE 10540790339 Active Nadir Hector MD Active LOVASTATIN 40 MG TABS 1 QD LOVASTATIN 61849607428 Active Nadir Hector MD Active GLUCOPHAGE 1000 MG TABS 1 TABLET TWO TIMES A DAY METFORMIN HCL 82338528914 Active Nadir Hector MD Active MAXZIDE-25 37.5-25 MG TABS 1 QD TRIAMTERENE-HCTZ 72095838018 Active Nadir Hector MD Active ACCUPRIL 40 MG TABS 1 QD QUINAPRIL HCL 04050243710 Active Nadir Hector MD Active BACTRIM DS 800-160 MG TAB 1 tab by mouth twice daily BACTRIM DS 800-160 MG TAB TRIMETHOPRIM-SULFAMETHOXAZOLE Inactive ACTOS 45 MG TABS 1 QD ACTOS 45 MG TABS 719826 PIOGLITAZONE HCL Inactive LORTAB 5-500 MG TABS 1 BY MOUTH Q6H NEEDED LORTAB 5-500 MG TABS HYDROCODONE-ACETAMINOPHEN Inactive AMLODIPINE BESYLATE 5 MG TABS 1 1/2 TABLET DAILY AMLODIPINE BESYLATE 5 MG TABS 538224 AMLODIPINE BESYLATE Inactive ONGLYZA 5 MG TABS [...] mouth twice daily MACROBID 100 MG CAP 884324 NITROFURANTOIN MONOHYD MACRO Inactive JANUVIA 100 MG TABS Take 1 tab daily JANUVIA 100 MG TABS SITAGLIPTIN PHOSPHATE Inactive GLUCOTROL XL 5 MG [id number] one tablet daily GLUCOTROL XL 5 MG [id number] GLIPIZIDE Inactive MACRODANTIN 100 MG CAPS 1 capsule by mouth twice daily for seven days MACRODANTIN 100 MG CAPS 262741 NITROFURANTOIN MACROCRYSTAL Inactive AMOXICILLIN 500 MG CAPS 2 po BID x 10 days AMOXICILLIN 500 MG CAPS 747168 AMOXICILLIN Inactive BACTRIM DS 800-160 MG TABS [...] Fluvirin, Fluarix, Agriflu(>=18 yo)) Fluzone (>3 yrs.) [[id number]] Influenza, seasonal, injectable Vital Signs Date Name [...] HGBA1C - Chemistry sodium, serum 140 mmol/L 194-842 0984/07/23 potassium, serum 4.5 mmol/L 3.5-5.2 chloride, serum [...] Negative Encounters Code Encounter Date Provider Facility CPT-20548 Level 3 Est. Patient 16:43:04 ADAPTIVE PHYSICAL EDUCATION SPECIALIST Nadir Hector MD [facility] CPT-52019 Level 4 Est. Patient 14:21:01 ADAPTIVE PHYSICAL EDUCATION SPECIALIST Nadir Hector MD [facility] CPT-10295 Level 3 Est. Patient 16:41:34 CDT Nadir Hector MD [facility] CPT-61939 Level 4 Est. Patient 13:54:35 ADAPTIVE PHYSICAL EDUCATION SPECIALIST Nadir Hector MD [facility] CPT-85250 Level 3 Est. Patient 15:51:21 CDT Nadir Hector MD [facility] CPT-88216 Level 4 New Patient 15:58:26 CDT Catalino Irene MD [facility] CPT-67830 Level 4 Est. Patient 15:42:38 ADAPTIVE PHYSICAL EDUCATION SPECIALIST Nadir Hector MD [facility] Procedures Code Procedure Name Date Entry Date Standard Description CPT-08332 Bone Density 08:41:23 ADAPTIVE PHYSICAL EDUCATION SPECIALIST CPT-000 Give Appropriate Flu Vaccine 13:54:35 ADAPTIVE PHYSICAL EDUCATION SPECIALIST CPT-000 Give Pneumovax 13:54:35 ADAPTIVE PHYSICAL EDUCATION SPECIALIST CPT-40131 Administration 2+ single or combination vaccines inc oral 14:01:24 ADAPTIVE PHYSICAL EDUCATION SPECIALIST CPT-72268 Administration single or combination vaccine inc oral 14 :01:24 ADAPTIVE PHYSICAL EDUCATION SPECIALIST CPT-27440 Influenza High Dose age 65+ 14:01:24 ADAPTIVE PHYSICAL EDUCATION SPECIALIST CPT-34003 Pneumovax 14:01:24 ADAPTIVE PHYSICAL EDUCATION SPECIALIST CPT-35652 Venipuncture Draw Fee 10:36:48 CDT CPT-000 Give Appropriate Flu Vaccine 15:20:11 ADAPTIVE PHYSICAL EDUCATION SPECIALIST CPT-71274 Administration single or combination vaccine inc oral 15 :50:33 ADAPTIVE PHYSICAL EDUCATION SPECIALIST CPT-55893 Influenza High Dose age 65+ 15:50:33 ADAPTIVE PHYSICAL EDUCATION SPECIALIST CPT-34925 LS spine AP and Lat 15:30:05 ADAPTIVE PHYSICAL EDUCATION SPECIALIST CPT-93073 Hip comp min 2V 15:30:05 ADAPTIVE PHYSICAL EDUCATION SPECIALIST CPT-05372 Postop F/U Visit 17:28:18 CDT CPT-OV Office Visit 15:04:38 CDT CPT-69383 Bladder Scan 15:58:26 CDT CPT-65746 Cystoscopy 15:58:26 CDT CPT-OV Office Visit 16:15:09 CDT CPT-000 Give Appropriate Flu Vaccine 16:33:10 ADAPTIVE PHYSICAL EDUCATION SPECIALIST CPT-11130 Administration single or combination vaccine inc oral 19 :21:12 ADAPTIVE PHYSICAL EDUCATION SPECIALIST CPT-27508 Influenza split virus > age 3 19:21:12 ADAPTIVE PHYSICAL EDUCATION SPECIALIST
--- OUTSIDE RECORDS SUMMARY | 2017-11-11 07:38 | XMS REPORT | Clinical Summary ---
Author Author Admin, IMTIAZ Organization [facility] Address Unknown Phone Unavailable Allergies, Adverse [...] lying down x 1 hour. ALENDRONATE SODIUM 33544760295 Active Nadir Hector MD Active AMOXICILLIN 500 MG CAPS 2 po BID x 10 days AMOXICILLIN 49477357123 No Longer Active Nadir Hector MD Active GLUCOTROL XL 5 MG [id number] one tablet daily GLIPIZIDE 94258116642 Active Nadir Hector MD Active JANUVIA 100 MG TABS 1 tablet by mouth daily SITAGLIPTIN PHOSPHATE 70513781901 No Longer Active Nadir Hector MD Active JANUVIA 100 MG TABS Take 1 tab daily SITAGLIPTIN PHOSPHATE 89216170397 No Longer Active Sharon Nuñez Active MACROBID 100 MG CAP 1 cap by mouth twice daily NITROFURANTOIN MONOHYD MACRO 60470251480 No Longer Active Crystal Fernández APRN Active MACRODANTIN 100 MG CAPS 1 capsule by mouth twice daily for seven days NITROFURANTOIN MACROCRYSTAL 76739084570 No Longer Active Ro Trey RN Active BACTRIM DS 800-160 MG TABS one tablet twice a day for seven days SULFAMETHOXAZOLE-TRIMETHOPRIM 96347070269 No Longer Active HEMANTH Griffin Active BACTRIM DS 800-160 MG TABS TAKE ONE TABLET BY MOUTH TWICE DAILY FOR 7 DAYS SULFAMETHOXAZOLE-TRIMETHOPRIM 62389196212 No Longer Active Viviana Lal RN Active CIPRO 250 MG TABS TAKE ONE TABLET BY MOUTH TWICE DAILY FOR 5 DAYS CIPROFLOXACIN HCL 31392425631 No Longer Active Viviana Lal RN Active FLEXERIL 10 MG TABS 1/2 TO 1 TABLET Q12H NEEDED CYCLOBENZAPRINE HCL 49114659835 No Longer Active Viviana Lal RN Active AMLODIPINE BESYLATE 5 MG TABS 1 1/2 daily AMLODIPINE BESYLATE 36296817314 Active Nadir Hector MD Active ONGLYZA 5 MG TABS 1 QAM SAXAGLIPTIN HCL 04529433013 No Longer Active Nadir Hector MD Active AMLODIPINE BESYLATE 5 MG TABS 1 1/2 TABLET DAILY AMLODIPINE BESYLATE 37547660888 No Longer Active Nadir Hector MD Active LORTAB 5-500 MG TABS 1 BY MOUTH Q6H NEEDED HYDROCODONE- ACETAMINOPHEN 15558435987 No Longer Active Nadir Hector MD Active ACTOS 45 MG TABS 1 QD PIOGLITAZONE HCL 40173603356 No Longer Active Nadir Hector MD Active BACTRIM DS 800-160 MG TAB 1 tab by mouth twice daily TRIMETHOPRIM-SULFAMETHOXAZOLE 27811377462 No Longer Active Nadir Hector MD Active CALCIUM + D 600-200 MG-UNIT TABS 1 TABLET TWO TIMES A DAY CALCIUM CARBONATE-VITAMIN D 93027735586 Active Ro Yang RN Active METOPROLOL SUCCINATE 25 MG [id number] 1 QAM METOPROLOL SUCCINATE 44774758761 Active Nadir Hector MD Active AMARYL 4 MG TABS 1 QD GLIMEPIRIDE 55379022374 Active Nadir Hector MD Active LOVASTATIN 40 MG TABS 1 QD LOVASTATIN 00800992422 Active Nadir Hector MD Active GLUCOPHAGE 1000 MG TABS 1 TABLET TWO TIMES A DAY METFORMIN HCL 28559284493 Active Nadir Hector MD Active MAXZIDE-25 37.5-25 MG TABS 1 QD TRIAMTERENE-HCTZ 42935543728 Active Nadir Hector MD Active ACCUPRIL 40 MG TABS 1 QD QUINAPRIL HCL 92346114587 Active Nadir Hector MD Active BACTRIM DS 800-160 MG TAB 1 tab by mouth twice daily BACTRIM DS 800-160 MG TAB TRIMETHOPRIM-SULFAMETHOXAZOLE Inactive ACTOS 45 MG TABS 1 QD ACTOS 45 MG TABS 167880 PIOGLITAZONE HCL Inactive LORTAB 5-500 MG TABS 1 BY MOUTH Q6H NEEDED LORTAB 5-500 MG TABS HYDROCODONE-ACETAMINOPHEN Inactive AMLODIPINE BESYLATE 5 MG TABS 1 1/2 TABLET DAILY AMLODIPINE BESYLATE 5 MG TABS 945148 AMLODIPINE BESYLATE Inactive ONGLYZA 5 MG TABS 1 QAM ONGLYZA 5 MG TABS SAXAGLIPTIN HCL Inactive FLEXERIL 10 MG TABS 1/2 TO 1 TABLET Q12H NEEDED FLEXERIL 10 MG TABS CYCLOBENZAPRINE HCL Inactive CIPRO 250 MG TABS TAKE ONE TABLET BY MOUTH TWICE DAILY FOR 5 DAYS CIPRO 250 MG TABS 253689 CIPROFLOXACIN HCL Inactive BACTRIM DS 800-160 MG TABS TAKE ONE TABLET BY MOUTH TWICE DAILY FOR 7 DAYS BACTRIM DS 800-160 MG TABS SULFAMETHOXAZOLE-TRIMETHOPRIM Inactive BACTRIM DS 800-160 MG TABS one tablet twice a day for seven days BACTRIM DS 800-160 MG TABS SULFAMETHOXAZOLE-TRIMETHOPRIM Inactive MACROBID 100 MG CAP 1 cap by mouth twice daily MACROBID 100 MG CAP 999373 NITROFURANTOIN MONOHYD MACRO Inactive JANUVIA 100 MG TABS Take 1 tab daily JANUVIA 100 MG TABS SITAGLIPTIN PHOSPHATE Inactive MACRODANTIN 100 MG CAPS 1 capsule by mouth twice daily for seven days MACRODANTIN 100 MG CAPS 925384 NITROFURANTOIN MACROCRYSTAL Inactive AMOXICILLIN 500 MG CAPS 2 po BID x 10 days AMOXICILLIN 500 MG CAPS 313792 AMOXICILLIN Inactive Advance Directives Directive Description Start Date PERMISSION TO SHARE Immunizations Vaccine Administration Date Value Standard Description pneumococcal immunization administered Pneumovax 23 [CVX33] pneumococcal polysaccharide vaccine, 23 valent Seasonal influenza vaccine, injectable, containing preservative, for > 3 years old (Afluria, FluLaval, Fluzone, Fluvirin, Fluarix, Agriflu(>=18 yo)) Fluzone (>3 yrs.) [[id number]] Influenza, seasonal, injectable Vital Signs Date Name [...] Panel - Chemistry sodium, serum 137 mmol/L 769-769 4964/01/09 potassium, serum 4.3 mmol/L 3.5-5.2 chloride, serum 99 mmol/L 98-107 carbon dioxide, venous blood 28.4 mmol/L 21.0-32.0 blood glucose 131 mg/dL 65-110 calcium, serum 9.7 mg/dL 8.5-10.1 urea nitrogen, blood 19 mg/dL 7-18 creatinine, serum 0.80 mg/dL 0.60-1.30 hemoglobin A1C, blood, as % of total hemoglobin 7.0 % 4.3-6.0 cholesterol, serum 156 mg/dL 886-969 2075/01/09 triglyceride, serum, fasting 168 mg/dL 30-200 HDL [...] HGBA1C - Chemistry sodium, serum 140 mmol/L 133-804 6156/07/23 potassium, serum 4.5 mmol/L 3.5-5.2 chloride, serum [...] No Encounters Code Encounter Date Provider Facility CPT-08412 Level 4 Est. Patient 14:21:01 SNAGGER Nadir Hector MD [facility] CPT-97625 Level 3 Est. Patient 16:41:34 CDT Nadir Hector MD [facility] CPT-82858 Level 4 Est. Patient 13:54:35 SNAGGER Nadir Hector MD [facility] CPT-96139 Level 3 Est. Patient 15:51:21 CDT Nadir Hector MD [facility] CPT-24541 Level 4 New Patient 15:58:26 CDT Catalino Irene MD [facility] CPT-38628 Level 4 Est. Patient 15:42:38 SNAGGER Nadir Hector MD [facility] Procedures Code Procedure Name Date Entry Date Standard Description CPT-33007 Bone Density 08:41:23 SNAGGER CPT-000 Give Appropriate Flu Vaccine 13:54:35 SNAGGER CPT-000 Give Pneumovax 13:54:35 SNAGGER CPT-03049 Administration 2+ single or combination vaccines inc oral 14:01:24 SNAGGER CPT-04582 Administration single or combination vaccine inc oral 14 :01:24 SNAGGER CPT-81207 Influenza High Dose age 65+ 14:01:24 SNAGGER CPT-34337 Pneumovax 14:01:24 SNAGGER CPT-62347 Venipuncture Draw Fee 10:36:48 CDT CPT-000 Give Appropriate Flu Vaccine 15:20:11 SNAGGER CPT-51316 Administration single or combination vaccine inc oral 15 :50:33 SNAGGER CPT-81010 Influenza High Dose age 65+ 15:50:33 SNAGGER CPT-47017 LS spine AP and Lat 15:30:05 SNAGGER CPT-72550 Hip comp min 2V 15:30:05 SNAGGER CPT-40909 Postop F/U Visit 17:28:18 CDT CPT-OV Office Visit 15:04:38 CDT CPT-03039 Bladder Scan 15:58:26 CDT CPT-98552 Cystoscopy 15:58:26 CDT CPT-OV Office Visit 16:15:09 CDT CPT-000 Give Appropriate Flu Vaccine 16:33:10 SNAGGER CPT-48963 Administration single or combination vaccine inc oral 19 :21:12 SNAGGER CPT-03154 Influenza split virus > age 3 19:21:12 SNAGGER
--- OUTSIDE RECORDS SUMMARY | 2017-11-11 07:38 | XMS REPORT | Clinical Summary ---
Author Author Admin, IMTIAZ Organization [facility] Address Unknown Phone Allergies, Adverse Reactions, [...] 2 po BID x 10 days AMOXICILLIN 36211703955 Active Nadir Hector MD Active GLUCOTROL XL 5 MG [id number] one tablet daily GLIPIZIDE 96535521379 Active Nadir Hector MD Active JANUVIA 100 MG TABS 1 tablet by mouth daily SITAGLIPTIN PHOSPHATE 87144191075 No Longer Active Nadir Hector MD Active JANUVIA 100 MG TABS Take 1 tab daily SITAGLIPTIN PHOSPHATE 10378969685 No Longer Active Sharon Nuñez Active MACROBID 100 MG CAP 1 cap by mouth twice daily NITROFURANTOIN MONOHYD MACRO 67590880982 No Longer Active Crystal Fernández APRN Active MACRODANTIN 100 MG CAPS 1 capsule by mouth twice daily for seven days NITROFURANTOIN MACROCRYSTAL 70116038586 No Longer Active Ro Yang RN Active BACTRIM DS 800-160 MG TABS one tablet twice a day for seven days SULFAMETHOXAZOLE-TRIMETHOPRIM 58940820203 No Longer Active Sancho Camejo Active BACTRIM DS 800-160 MG TABS TAKE ONE TABLET BY MOUTH TWICE DAILY FOR 7 DAYS SULFAMETHOXAZOLE-TRIMETHOPRIM 00219559030 No Longer Active Viviana Lal RN Active CIPRO 250 MG TABS TAKE ONE TABLET BY MOUTH TWICE DAILY FOR 5 DAYS CIPROFLOXACIN HCL 93062250658 No Longer Active Viviana Lal RN Active FLEXERIL 10 MG TABS 1/2 TO 1 TABLET Q12H NEEDED CYCLOBENZAPRINE HCL 66911565516 No Longer Active Viviana Lal RN Active AMLODIPINE BESYLATE 5 MG TABS 1 1/2 daily AMLODIPINE BESYLATE 41849912834 Active Nadir Hector MD Active ONGLYZA 5 MG TABS 1 QAM SAXAGLIPTIN HCL 73412927351 No Longer Active Nadir Hector MD Active AMLODIPINE BESYLATE 5 MG TABS 1 1/2 TABLET DAILY AMLODIPINE BESYLATE 30961547435 No Longer Active Nadir Hector MD Active LORTAB 5-500 MG TABS 1 BY MOUTH Q6H NEEDED HYDROCODONE- ACETAMINOPHEN 79469645805 No Longer Active Nadir Hector MD Active ACTOS 45 MG TABS 1 QD PIOGLITAZONE HCL 57235259855 No Longer Active Nadir Hector MD Active BACTRIM DS 800-160 MG TAB 1 tab by mouth twice daily TRIMETHOPRIM-SULFAMETHOXAZOLE 34988027016 No Longer Active Nadir Hector MD Active CALCIUM + D 600-200 MG-UNIT TABS 1 TABLET TWO TIMES A DAY CALCIUM CARBONATE-VITAMIN D 57666735707 Active Ro Yang RN Active METOPROLOL SUCCINATE 25 MG [id number] 1 QAM METOPROLOL SUCCINATE 98985972150 Active Nadir Hector MD Active AMARYL 4 MG TABS 1 QD GLIMEPIRIDE 71710109436 Active Nadir Hector MD Active LOVASTATIN 40 MG TABS 1 QD LOVASTATIN 96805659438 Active Nadir Hector MD Active GLUCOPHAGE 1000 MG TABS 1 TABLET TWO TIMES A DAY METFORMIN HCL 75020527676 Active Nadir Hector MD Active MAXZIDE-25 37.5-25 MG TABS 1 QD TRIAMTERENE-HCTZ 03288248236 Active Nadir Hector MD Active ACCUPRIL 40 MG TABS 1 QD QUINAPRIL HCL 02678790958 Active Nadir Hector MD Active BACTRIM DS 800-160 MG TAB 1 tab by mouth twice daily BACTRIM DS 800-160 MG TAB TRIMETHOPRIM-SULFAMETHOXAZOLE Inactive ACTOS 45 MG TABS 1 QD ACTOS 45 MG TABS 022036 PIOGLITAZONE HCL Inactive LORTAB 5-500 MG TABS 1 BY MOUTH Q6H NEEDED LORTAB 5-500 MG TABS HYDROCODONE-ACETAMINOPHEN Inactive AMLODIPINE BESYLATE 5 MG TABS 1 1/2 TABLET DAILY AMLODIPINE BESYLATE 5 MG TABS 425875 AMLODIPINE BESYLATE Inactive ONGLYZA 5 MG TABS 1 QAM ONGLYZA 5 MG TABS SAXAGLIPTIN HCL Inactive FLEXERIL 10 MG TABS 1/2 TO 1 TABLET Q12H NEEDED FLEXERIL 10 MG TABS CYCLOBENZAPRINE HCL Inactive CIPRO 250 MG TABS TAKE ONE TABLET BY MOUTH TWICE DAILY FOR 5 DAYS CIPRO 250 MG TABS 278364 CIPROFLOXACIN HCL Inactive BACTRIM DS 800-160 MG TABS TAKE ONE TABLET BY MOUTH TWICE DAILY FOR 7 DAYS BACTRIM DS 800-160 MG TABS SULFAMETHOXAZOLE-TRIMETHOPRIM Inactive BACTRIM DS 800-160 MG TABS one tablet twice a day for seven days BACTRIM DS 800-160 MG TABS SULFAMETHOXAZOLE-TRIMETHOPRIM Inactive MACROBID 100 MG CAP 1 cap by mouth twice daily MACROBID 100 MG CAP 561297 NITROFURANTOIN MONOHYD MACRO Inactive JANUVIA 100 MG TABS Take 1 tab daily JANUVIA 100 MG TABS SITAGLIPTIN PHOSPHATE Inactive MACRODANTIN 100 MG CAPS 1 capsule by mouth twice daily for seven days MACRODANTIN 100 MG CAPS 633496 NITROFURANTOIN MACROCRYSTAL Inactive Advance Directives Directive Description Start Date PERMISSION TO SHARE Immunizations Vaccine Administration Date Value Standard Description pneumococcal immunization administered Pneumovax 23 [CVX33] pneumococcal polysaccharide vaccine, 23 valent Seasonal influenza vaccine, injectable, containing preservative, for > 3 years old (Afluria, FluLaval, Fluzone, Fluvirin, Fluarix, Agriflu(>=18 yo)) Fluzone (>3 yrs.) [[id number]] Influenza, seasonal, injectable Vital Signs Date Name [...] Panel - Chemistry sodium, serum 138 mmol/L 177-688 7757/06/05 potassium, serum 4.6 mmol/L 3.5-5.2 chloride, serum 103 mmol/L 98-107 carbon dioxide, venous blood 24.9 mmol/L 21.0-32.0 blood glucose 85 mg/dL 65-110 calcium, serum 9.1 mg/dL 8.5-10.1 urea nitrogen, blood 17 mg/dL 7-18 creatinine, serum 0.90 mg/dL 0.60-1.30 sodium, serum 139 mmol/L 876-768 9237/09/05 potassium, serum 4.1 mmol/L 3.5-5.2 chloride, serum 103 mmol/L 98-107 carbon dioxide, venous blood 29.8 mmol/L 21.0-32.0 blood glucose 81 mg/dL 65-110 calcium, serum 8.9 mg/dL 8.5-10.1 urea nitrogen, blood 16 mg/dL 7-18 creatinine, serum 1.10 mg/dL 0.60-1.30 Lab Report: CBC, Basic Metabolic Panel, HGBA1C, Lipid Panel - Chemistry sodium, serum 137 mmol/L 711-839 2259/01/09 potassium, serum 4.3 mmol/L 3.5-5.2 chloride, serum 99 mmol/L 98-107 carbon dioxide, venous blood 28.4 mmol/L 21.0-32.0 blood glucose 131 mg/dL 65-110 calcium, serum 9.7 mg/dL 8.5-10.1 urea nitrogen, blood 19 mg/dL 7-18 creatinine, serum 0.80 mg/dL 0.60-1.30 hemoglobin A1C, blood, as % of total hemoglobin 7.0 % 4.3-6.0 cholesterol, serum 156 mg/dL 847-681 5829/01/09 triglyceride, serum, fasting 168 mg/dL 30-200 HDL [...] % of total hemoglobin 7.3 % 4.3-6.0 hemoglobin A1C, blood, as % [...] 100 mg/dL home glucose monitor utilized No Office Visit: Yearly Exam - Chemistry cholesterol, target level 200 mg/dL triglyceride, target level 200 mg/dL HDL cholesterol, serum, target level 35 mg/dL LDL target level 100 mg/dL home glucose monitor utilized Yes Encounters Code Encounter Date Provider Facility CPT-92617 Level 3 Est. Patient 16:41:34 CDT Nadir Hector MD [facility] CPT-12504 Level 4 Est. Patient 13:54:35 ELECTROMECHANICAL INSPECTOR Nadir Hector MD [facility] CPT-11790 Level 3 Est. Patient 15:51:21 CDT Nadir Hector MD [facility] CPT-82134 Level 4 New Patient 15:58:26 CDT Catalino Irene MD [facility] CPT-95966 Level 4 Est. Patient 15:42:38 ELECTROMECHANICAL INSPECTOR Nadir Hector MD [facility] Procedures Code Procedure Name Date Entry Date Standard Description CPT-56941 Administration 2+ single or combination vaccines inc oral 14:01:24 ELECTROMECHANICAL INSPECTOR CPT-15041 Administration single or combination vaccine inc oral 14 :01:24 ELECTROMECHANICAL INSPECTOR CPT-03502 Influenza High Dose age 65+ 14:01:24 ELECTROMECHANICAL INSPECTOR CPT-12699 Pneumovax 14:01:24 ELECTROMECHANICAL INSPECTOR CPT-42825 Venipuncture Draw Fee 10:36:48 CDT CPT-000 Give Appropriate Flu Vaccine 15:20:11 ELECTROMECHANICAL INSPECTOR CPT-56521 Administration single or combination vaccine inc oral 15 :50:33 ELECTROMECHANICAL INSPECTOR CPT-02304 Influenza High Dose age 65+ 15:50:33 ELECTROMECHANICAL INSPECTOR CPT-53826 LS spine AP and Lat 15:30:05 ELECTROMECHANICAL INSPECTOR CPT-69413 Hip comp min 2V 15:30:05 ELECTROMECHANICAL INSPECTOR CPT-06186 Postop F/U Visit 17:28:18 CDT CPT-OV Office Visit 15:04:38 CDT CPT-45173 Bladder Scan 15:58:26 CDT CPT-60441 Cystoscopy 15:58:26 CDT CPT-OV Office Visit 16:15:09 CDT CPT-000 Give Appropriate Flu Vaccine 16:33:10 ELECTROMECHANICAL INSPECTOR CPT-32721 Administration single or combination vaccine inc oral 19 :21:12 ELECTROMECHANICAL INSPECTOR CPT-40846 Influenza split virus > age 3 19:21:12 ELECTROMECHANICAL INSPECTOR
--- OUTSIDE RECORDS SUMMARY | 2017-11-11 07:39 | XMS REPORT | Clinical Summary ---
Author Author Admin, IMTIAZ Organization [facility] Address Unknown Phone Unavailable Allergies, Adverse [...] general medical examination at a [facility] care facility PERIPHERAL NEUROPATHY 356.9 Active [...] 2 po BID x 10 days AMOXICILLIN 00771205034 No Longer Active Nadir Hector MD Active GLUCOTROL XL 5 MG [id number] one tablet daily GLIPIZIDE 40550661642 Active Nadir Hector MD Active JANUVIA 100 MG TABS 1 tablet by mouth daily SITAGLIPTIN PHOSPHATE 91535394781 No Longer Active Nadir Hector MD Active JANUVIA 100 MG TABS Take 1 tab daily SITAGLIPTIN PHOSPHATE 93560525317 No Longer Active Sharon Nuñez Active MACROBID 100 MG CAP 1 cap by mouth twice daily NITROFURANTOIN MONOHYD MACRO 25519313781 No Longer Active Crystal Fernández APRN Active MACRODANTIN 100 MG CAPS 1 capsule by mouth twice daily for seven days NITROFURANTOIN MACROCRYSTAL 62181991073 No Longer Active Ro Yang RN Active BACTRIM DS 800-160 MG TABS one tablet twice a day for seven days SULFAMETHOXAZOLE-TRIMETHOPRIM 05137745685 No Longer Active HEMANTH Griffin Active BACTRIM DS 800-160 MG TABS TAKE ONE TABLET BY MOUTH TWICE DAILY FOR 7 DAYS SULFAMETHOXAZOLE-TRIMETHOPRIM 56760218174 No Longer Active Viviana Lal RN Active CIPRO 250 MG TABS TAKE ONE TABLET BY MOUTH TWICE DAILY FOR 5 DAYS CIPROFLOXACIN HCL 16251132235 No Longer Active Vviiana Lal RN Active FLEXERIL 10 MG TABS 1/2 TO 1 TABLET Q12H NEEDED CYCLOBENZAPRINE HCL 93503291734 No Longer Active Viviana Lal RN Active AMLODIPINE BESYLATE 5 MG TABS 1 1/2 daily AMLODIPINE BESYLATE 47856672320 Active Neyda Forte APRN Active ONGLYZA 5 MG TABS 1 QAM SAXAGLIPTIN HCL 04665490270 No Longer Active Nadir Hector MD Active AMLODIPINE BESYLATE 5 MG TABS 1 1/2 TABLET DAILY AMLODIPINE BESYLATE 19873345482 No Longer Active Nadir Hector MD Active LORTAB 5-500 MG TABS 1 BY MOUTH Q6H NEEDED HYDROCODONE- ACETAMINOPHEN 57009126108 No Longer Active Nadir Hector MD Active ACTOS 45 MG TABS 1 QD PIOGLITAZONE HCL 52956331414 No Longer Active Nadir Hector MD Active BACTRIM DS 800-160 MG TAB 1 tab by mouth twice daily TRIMETHOPRIM-SULFAMETHOXAZOLE 71125193349 No Longer Active Nadir Hector MD Active CALCIUM + D 600-200 MG-UNIT TABS 1 TABLET TWO TIMES A DAY CALCIUM CARBONATE-VITAMIN D 66759097326 Active Ro Yang RN Active METOPROLOL SUCCINATE 25 MG [id number] 1 QAM METOPROLOL SUCCINATE 35749916199 Active Neyda Forte APRN Active AMARYL 4 MG TABS 1 QD GLIMEPIRIDE 93059799392 Active Nadir Hector MD Active LOVASTATIN 40 MG TABS 1 QD LOVASTATIN 32482632012 Active Neyda Forte APRN Active GLUCOPHAGE 1000 MG TABS 1 TABLET TWO TIMES A DAY METFORMIN HCL 41523630369 Active eNyda Forte APRN Active MAXZIDE-25 37.5-25 MG TABS 1 QD TRIAMTERENE-HCTZ 08455910768 Active Nadir Hector MD Active ACCUPRIL 40 MG TABS 1 QD QUINAPRIL HCL 26966670724 Active Neyda Forte APRN Active BACTRIM DS 800-160 MG TAB 1 tab by mouth twice daily BACTRIM DS 800-160 MG TAB TRIMETHOPRIM-SULFAMETHOXAZOLE Inactive ACTOS 45 MG TABS 1 QD ACTOS 45 MG TABS 175095 PIOGLITAZONE HCL Inactive LORTAB 5-500 MG TABS 1 BY MOUTH Q6H NEEDED LORTAB 5-500 MG TABS HYDROCODONE-ACETAMINOPHEN Inactive AMLODIPINE BESYLATE 5 MG TABS 1 1/2 TABLET DAILY AMLODIPINE BESYLATE 5 MG TABS 075587 AMLODIPINE BESYLATE Inactive ONGLYZA 5 MG TABS 1 QAM ONGLYZA 5 MG TABS SAXAGLIPTIN HCL Inactive FLEXERIL 10 MG TABS 1/2 TO 1 TABLET Q12H NEEDED FLEXERIL 10 MG TABS CYCLOBENZAPRINE HCL Inactive CIPRO 250 MG TABS TAKE ONE TABLET BY MOUTH TWICE DAILY FOR 5 DAYS CIPRO 250 MG TABS 820548 CIPROFLOXACIN HCL Inactive BACTRIM DS 800-160 MG TABS TAKE ONE TABLET BY MOUTH TWICE DAILY FOR 7 DAYS BACTRIM DS 800-160 MG TABS SULFAMETHOXAZOLE-TRIMETHOPRIM Inactive BACTRIM DS 800-160 MG TABS one tablet twice a day for seven days BACTRIM DS 800-160 MG TABS SULFAMETHOXAZOLE-TRIMETHOPRIM Inactive MACROBID 100 MG CAP 1 cap by mouth twice daily MACROBID 100 MG CAP 049704 NITROFURANTOIN MONOHYD MACRO Inactive JANUVIA 100 MG TABS Take 1 tab daily JANUVIA 100 MG TABS SITAGLIPTIN PHOSPHATE Inactive MACRODANTIN 100 MG CAPS 1 capsule by mouth twice daily for seven days MACRODANTIN 100 MG CAPS 186761 NITROFURANTOIN MACROCRYSTAL Inactive AMOXICILLIN 500 MG CAPS 2 po BID x 10 days AMOXICILLIN 500 MG CAPS 199099 AMOXICILLIN Inactive Advance Directives Directive Description Start Date PERMISSION TO SHARE Immunizations Vaccine Administration Date Value Standard Description pneumococcal immunization administered Pneumovax 23 [CVX33] pneumococcal polysaccharide vaccine, 23 valent Seasonal influenza vaccine, injectable, containing preservative, for > 3 years old (Afluria, FluLaval, Fluzone, Fluvirin, Fluarix, Agriflu(>=18 yo)) Fluzone (>3 yrs.) [[id number]] Influenza, seasonal, injectable Vital Signs Date Name [...] Panel - Chemistry sodium, serum 137 mmol/L 915-861 1650/01/09 potassium, serum 4.3 mmol/L 3.5-5.2 chloride, serum 99 mmol/L 98-107 carbon dioxide, venous blood 28.4 mmol/L 21.0-32.0 blood glucose 131 mg/dL 65-110 calcium, serum 9.7 mg/dL 8.5-10.1 urea nitrogen, blood 19 mg/dL 7-18 creatinine, serum 0.80 mg/dL 0.60-1.30 hemoglobin A1C, blood, as % of total hemoglobin 7.0 % 4.3-6.0 cholesterol, serum 156 mg/dL 594-687 2967/01/09 triglyceride, serum, fasting 168 mg/dL 30-200 HDL [...] HGBA1C - Chemistry sodium, serum 140 mmol/L 777-955 3887/07/23 potassium, serum 4.5 mmol/L 3.5-5.2 chloride, serum [...] No Encounters Code Encounter Date Provider Facility CPT-29094 Level 3 Est. Patient 16:41:34 CDT Nadir Hector MD [facility] CPT-38770 Level 4 Est. Patient 13:54:35 MACHINERY ENGINEER Nadir Hector MD [facility] CPT-39240 Level 3 Est. Patient 15:51:21 CDT Nadir Hector MD [facility] CPT-40297 Level 4 New Patient 15:58:26 CDT Catalino Irene MD [facility] CPT-06413 Level 4 Est. Patient 15:42:38 MACHINERY ENGINEER Nadir Hector MD [facility] Procedures Code Procedure Name Date Entry Date Standard Description CPT-000 Give Appropriate Flu Vaccine 13:54:35 MACHINERY ENGINEER CPT-000 Give Pneumovax 13:54:35 MACHINERY ENGINEER CPT-46357 Administration 2+ single or combination vaccines inc oral 14:01:24 MACHINERY ENGINEER CPT-19826 Administration single or combination vaccine inc oral 14 :01:24 MACHINERY ENGINEER CPT-15025 Influenza High Dose age 65+ 14:01:24 MACHINERY ENGINEER CPT-04811 Pneumovax 14:01:24 MACHINERY ENGINEER CPT-69291 Venipuncture Draw Fee 10:36:48 CDT CPT-000 Give Appropriate Flu Vaccine 15:20:11 MACHINERY ENGINEER CPT-67313 Administration single or combination vaccine inc oral 15 :50:33 MACHINERY ENGINEER CPT-74079 Influenza High Dose age 65+ 15:50:33 MACHINERY ENGINEER CPT-96945 LS spine AP and Lat 15:30:05 MACHINERY ENGINEER CPT-95006 Hip comp min 2V 15:30:05 MACHINERY ENGINEER CPT-67217 Postop F/U Visit 17:28:18 CDT CPT-OV Office Visit 15:04:38 CDT CPT-27401 Bladder Scan 15:58:26 CDT CPT-01182 Cystoscopy 15:58:26 CDT CPT-OV Office Visit 16:15:09 CDT CPT-000 Give Appropriate Flu Vaccine 16:33:10 MACHINERY ENGINEER CPT-83230 Administration single or combination vaccine inc oral 19 :21:12 MACHINERY ENGINEER CPT-47809 Influenza split virus > age 3 19:21:12 MACHINERY ENGINEER
--- OUTSIDE RECORDS SUMMARY | 2017-11-11 07:39 | XMS REPORT | Clinical Summary ---
Author Author Admin, IMTIAZ Organization [facility] Address Unknown Phone Unavailable Allergies, Adverse [...] medical examination at a [facility] care facility PERIPHERAL NEUROPATHY 356.9 Active Nadir [...] 2 po BID x 10 days AMOXICILLIN 83500457977 No Longer Active Nadir Hector MD Active GLUCOTROL XL 5 MG [id number] one tablet daily GLIPIZIDE 92088702043 Active Nadir Hector MD Active JANUVIA 100 MG TABS 1 tablet by mouth daily SITAGLIPTIN PHOSPHATE 92756174586 No Longer Active Nadir Hector MD Active JANUVIA 100 MG TABS Take 1 tab daily SITAGLIPTIN PHOSPHATE 65232803869 No Longer Active Sharon Nuñez Active MACROBID 100 MG CAP 1 cap by mouth twice daily NITROFURANTOIN MONOHYD MACRO 62850802032 No Longer Active Crystal Fernández APRN Active MACRODANTIN 100 MG CAPS 1 capsule by mouth twice daily for seven days NITROFURANTOIN MACROCRYSTAL 52378552989 No Longer Active Ro Yang RN Active BACTRIM DS 800-160 MG TABS one tablet twice a day for seven days SULFAMETHOXAZOLE-TRIMETHOPRIM 24660074372 No Longer Active HEMANTH Griffin Active BACTRIM DS 800-160 MG TABS TAKE ONE TABLET BY MOUTH TWICE DAILY FOR 7 DAYS SULFAMETHOXAZOLE-TRIMETHOPRIM 76828885370 No Longer Active Viviana Lal RN Active CIPRO 250 MG TABS TAKE ONE TABLET BY MOUTH TWICE DAILY FOR 5 DAYS CIPROFLOXACIN HCL 75756355716 No Longer Active Viviana Lal RN Active FLEXERIL 10 MG TABS 1/2 TO 1 TABLET Q12H NEEDED CYCLOBENZAPRINE HCL 70883318027 No Longer Active Viviana Lal RN Active AMLODIPINE BESYLATE 5 MG TABS 1 1/2 daily AMLODIPINE BESYLATE 64185321516 Active Nadir Hector MD Active ONGLYZA 5 MG TABS 1 QAM SAXAGLIPTIN HCL 53929059676 No Longer Active Nadir Hector MD Active AMLODIPINE BESYLATE 5 MG TABS 1 1/2 TABLET DAILY AMLODIPINE BESYLATE 89763191281 No Longer Active Nadir Hector MD Active LORTAB 5-500 MG TABS 1 BY MOUTH Q6H NEEDED HYDROCODONE- ACETAMINOPHEN 15429627602 No Longer Active Nadir Hector MD Active ACTOS 45 MG TABS 1 QD PIOGLITAZONE HCL 81241447523 No Longer Active Nadir Hector MD Active BACTRIM DS 800-160 MG TAB 1 tab by mouth twice daily TRIMETHOPRIM-SULFAMETHOXAZOLE 29240749132 No Longer Active Nadir Hector MD Active CALCIUM + D 600-200 MG-UNIT TABS 1 TABLET TWO TIMES A DAY CALCIUM CARBONATE-VITAMIN D 98932064194 Active Ro Yang RN Active METOPROLOL SUCCINATE 25 MG [id number] 1 QAM METOPROLOL SUCCINATE 63685637073 Active Nadir Hector MD Active AMARYL 4 MG TABS 1 QD GLIMEPIRIDE 37892678375 Active Nadir Hector MD Active LOVASTATIN 40 MG TABS 1 QD LOVASTATIN 39985038180 Active Nadir Hector MD Active GLUCOPHAGE 1000 MG TABS 1 TABLET TWO TIMES A DAY METFORMIN HCL 35221641475 Active Nadir Hector MD Active MAXZIDE-25 37.5-25 MG TABS 1 QD TRIAMTERENE-HCTZ 27741202324 Active Nadir Hector MD Active ACCUPRIL 40 MG TABS 1 QD QUINAPRIL HCL 38847764896 Active Nadir Hector MD Active BACTRIM DS 800-160 MG TAB 1 tab by mouth twice daily BACTRIM DS 800-160 MG TAB TRIMETHOPRIM-SULFAMETHOXAZOLE Inactive ACTOS 45 MG TABS 1 QD ACTOS 45 MG TABS 357282 PIOGLITAZONE HCL Inactive LORTAB 5-500 MG TABS 1 BY MOUTH Q6H NEEDED LORTAB 5-500 MG TABS HYDROCODONE-ACETAMINOPHEN Inactive AMLODIPINE BESYLATE 5 MG TABS 1 1/2 TABLET DAILY AMLODIPINE BESYLATE 5 MG TABS 788149 AMLODIPINE BESYLATE Inactive ONGLYZA 5 MG TABS 1 QAM ONGLYZA 5 MG TABS SAXAGLIPTIN HCL Inactive FLEXERIL 10 MG TABS 1/2 TO 1 TABLET Q12H NEEDED FLEXERIL 10 MG TABS CYCLOBENZAPRINE HCL Inactive CIPRO 250 MG TABS TAKE ONE TABLET BY MOUTH TWICE DAILY FOR 5 DAYS CIPRO 250 MG TABS 651897 CIPROFLOXACIN HCL Inactive BACTRIM DS 800-160 MG TABS TAKE ONE TABLET BY MOUTH TWICE DAILY FOR 7 DAYS BACTRIM DS 800-160 MG TABS SULFAMETHOXAZOLE-TRIMETHOPRIM Inactive BACTRIM DS 800-160 MG TABS one tablet twice a day for seven days BACTRIM DS 800-160 MG TABS SULFAMETHOXAZOLE-TRIMETHOPRIM Inactive MACROBID 100 MG CAP 1 cap by mouth twice daily MACROBID 100 MG CAP 170165 NITROFURANTOIN MONOHYD MACRO Inactive JANUVIA 100 MG TABS Take 1 tab daily JANUVIA 100 MG TABS SITAGLIPTIN PHOSPHATE Inactive MACRODANTIN 100 MG CAPS 1 capsule by mouth twice daily for seven days MACRODANTIN 100 MG CAPS 735283 NITROFURANTOIN MACROCRYSTAL Inactive AMOXICILLIN 500 MG CAPS 2 po BID x 10 days AMOXICILLIN 500 MG CAPS 129472 AMOXICILLIN Inactive Advance Directives Directive Description Start Date PERMISSION TO SHARE Immunizations Vaccine Administration Date Value Standard Description pneumococcal immunization administered Pneumovax 23 [CVX33] pneumococcal polysaccharide vaccine, 23 valent Seasonal influenza vaccine, injectable, containing preservative, for > 3 years old (Afluria, FluLaval, Fluzone, Fluvirin, Fluarix, Agriflu(>=18 yo)) Fluzone (>3 yrs.) [[id number]] Influenza, seasonal, injectable Vital Signs Date Name [...] Panel - Chemistry sodium, serum 137 mmol/L 174-652 8357/01/09 potassium, serum 4.3 mmol/L 3.5-5.2 chloride, serum 99 mmol/L 98-107 carbon dioxide, venous blood 28.4 mmol/L 21.0-32.0 blood glucose 131 mg/dL 65-110 calcium, serum 9.7 mg/dL 8.5-10.1 urea nitrogen, blood 19 mg/dL 7-18 creatinine, serum 0.80 mg/dL 0.60-1.30 hemoglobin A1C, blood, as % of total hemoglobin 7.0 % 4.3-6.0 cholesterol, serum 156 mg/dL 815-215 6010/01/09 triglyceride, serum, fasting 168 mg/dL 30-200 HDL [...] HGBA1C - Chemistry sodium, serum 140 mmol/L 219-991 9219/07/23 potassium, serum 4.5 mmol/L 3.5-5.2 chloride, serum [...] No Encounters Code Encounter Date Provider Facility CPT-34011 Level 4 Est. Patient 14:21:01 SCHOOL OPERATIONS MANAGER Nadir Hector MD [facility] CPT-08694 Level 3 Est. Patient 16:41:34 CDT Nadir Hector MD [facility] CPT-09653 Level 4 Est. Patient 13:54:35 SCHOOL OPERATIONS MANAGER Nadir Hector MD [facility] CPT-19556 Level 3 Est. Patient 15:51:21 CDT Nadir Hector MD [facility] CPT-75630 Level 4 New Patient 15:58:26 CDT Catalino Irene MD [facility] CPT-05273 Level 4 Est. Patient 15:42:38 SCHOOL OPERATIONS MANAGER Nadir Hector MD [facility] Procedures Code Procedure Name Date Entry Date Standard Description CPT-72765 Bone Density 08:41:23 SCHOOL OPERATIONS MANAGER CPT-000 Give Appropriate Flu Vaccine 13:54:35 SCHOOL OPERATIONS MANAGER CPT-000 Give Pneumovax 13:54:35 SCHOOL OPERATIONS MANAGER CPT-15267 Administration 2+ single or combination vaccines inc oral 14:01:24 SCHOOL OPERATIONS MANAGER CPT-18534 Administration single or combination vaccine inc oral 14 :01:24 SCHOOL OPERATIONS MANAGER CPT-60175 Influenza High Dose age 65+ 14:01:24 SCHOOL OPERATIONS MANAGER CPT-95655 Pneumovax 14:01:24 SCHOOL OPERATIONS MANAGER CPT-73397 Venipuncture Draw Fee 10:36:48 CDT CPT-000 Give Appropriate Flu Vaccine 15:20:11 SCHOOL OPERATIONS MANAGER CPT-23780 Administration single or combination vaccine inc oral 15 :50:33 SCHOOL OPERATIONS MANAGER CPT-57679 Influenza High Dose age 65+ 15:50:33 SCHOOL OPERATIONS MANAGER CPT-46692 LS spine AP and Lat 15:30:05 SCHOOL OPERATIONS MANAGER CPT-77261 Hip comp min 2V 15:30:05 SCHOOL OPERATIONS MANAGER CPT-08100 Postop F/U Visit 17:28:18 CDT CPT-OV Office Visit 15:04:38 CDT CPT-19181 Bladder Scan 15:58:26 CDT CPT-02483 Cystoscopy 15:58:26 CDT CPT-OV Office Visit 16:15:09 CDT CPT-000 Give Appropriate Flu Vaccine 16:33:10 SCHOOL OPERATIONS MANAGER CPT-46798 Administration single or combination vaccine inc oral 19 :21:12 SCHOOL OPERATIONS MANAGER CPT-79425 Influenza split virus > age 3 19:21:12 SCHOOL OPERATIONS MANAGER
--- OUTSIDE RECORDS SUMMARY | 2017-11-11 07:40 | XMS REPORT | Clinical Summary ---
Author Author Admin, IMTIAZ Organization [facility] Address Unknown Phone Unavailable Allergies, Adverse Reactions, [...] general medical examination at a [facility] care facility PERIPHERAL NEUROPATHY 356.9 Active [...] 2 po BID x 10 days AMOXICILLIN 70703117063 No Longer Active Nadir Hector MD Active GLUCOTROL XL 5 MG [id number] one tablet daily GLIPIZIDE 37937244234 Active Nadir Hector MD Active JANUVIA 100 MG TABS 1 tablet by mouth daily SITAGLIPTIN PHOSPHATE 79916313352 No Longer Active Nadir Hector MD Active JANUVIA 100 MG TABS Take 1 tab daily SITAGLIPTIN PHOSPHATE 04368431082 No Longer Active Sharon Nuñez Active MACROBID 100 MG CAP 1 cap by mouth twice daily NITROFURANTOIN MONOHYD MACRO 91873245136 No Longer Active Crystal Fernández APRN Active MACRODANTIN 100 MG CAPS 1 capsule by mouth twice daily for seven days NITROFURANTOIN MACROCRYSTAL 76992817123 No Longer Active Ro Yang RN Active BACTRIM DS 800-160 MG TABS one tablet twice a day for seven days SULFAMETHOXAZOLE-TRIMETHOPRIM 42926143926 No Longer Active HEMANTH Griffin Active BACTRIM DS 800-160 MG TABS TAKE ONE TABLET BY MOUTH TWICE DAILY FOR 7 DAYS SULFAMETHOXAZOLE-TRIMETHOPRIM 66808170096 No Longer Active Viviana Lal RN Active CIPRO 250 MG TABS TAKE ONE TABLET BY MOUTH TWICE DAILY FOR 5 DAYS CIPROFLOXACIN HCL 23996937604 No Longer Active Viviana Lal RN Active FLEXERIL 10 MG TABS 1/2 TO 1 TABLET Q12H NEEDED CYCLOBENZAPRINE HCL 37130327045 No Longer Active Viviana Lal RN Active AMLODIPINE BESYLATE 5 MG TABS 1 1/2 daily AMLODIPINE BESYLATE 39440354168 Active Nadir Hector MD Active ONGLYZA 5 MG TABS 1 QAM SAXAGLIPTIN HCL 46767404135 No Longer Active Nadir Hector MD Active AMLODIPINE BESYLATE 5 MG TABS 1 1/2 TABLET DAILY AMLODIPINE BESYLATE 81914970343 No Longer Active Nadir Hector MD Active LORTAB 5-500 MG TABS 1 BY MOUTH Q6H NEEDED HYDROCODONE- ACETAMINOPHEN 07007661626 No Longer Active Nadir Hector MD Active ACTOS 45 MG TABS 1 QD PIOGLITAZONE HCL 01370506312 No Longer Active Nadir Hector MD Active BACTRIM DS 800-160 MG TAB 1 tab by mouth twice daily TRIMETHOPRIM-SULFAMETHOXAZOLE 74023424358 No Longer Active Nadir Hector MD Active CALCIUM + D 600-200 MG-UNIT TABS 1 TABLET TWO TIMES A DAY CALCIUM CARBONATE-VITAMIN D 73887987093 Active Ro Yang RN Active METOPROLOL SUCCINATE 25 MG [id number]-MRT 1 QAM METOPROLOL SUCCINATE 89612906351 Active Nadir Hector MD Active AMARYL 4 MG TABS 1 QD GLIMEPIRIDE 52934252917 Active Nadir Hector MD Active LOVASTATIN 40 MG TABS 1 QD LOVASTATIN 51951298608 Active Nadir Hector MD Active GLUCOPHAGE 1000 MG TABS 1 TABLET TWO TIMES A DAY METFORMIN HCL 96540789583 Active Nadir Hector MD Active MAXZIDE-25 37.5-25 MG TABS 1 QD TRIAMTERENE-HCTZ 63340252958 Active Nadir Hector MD Active ACCUPRIL 40 MG TABS 1 QD QUINAPRIL HCL 31418976030 Active Nadir Hecotr MD Active BACTRIM DS 800-160 MG TAB 1 tab by mouth twice daily BACTRIM DS 800-160 MG TAB TRIMETHOPRIM-SULFAMETHOXAZOLE Inactive ACTOS 45 MG TABS 1 QD ACTOS 45 MG TABS 766994 PIOGLITAZONE HCL Inactive LORTAB 5-500 MG TABS 1 BY MOUTH Q6H NEEDED LORTAB 5-500 MG TABS HYDROCODONE-ACETAMINOPHEN Inactive AMLODIPINE BESYLATE 5 MG TABS 1 1/2 TABLET DAILY AMLODIPINE BESYLATE 5 MG TABS 865653 AMLODIPINE BESYLATE Inactive ONGLYZA 5 MG TABS 1 QAM ONGLYZA 5 MG TABS SAXAGLIPTIN HCL Inactive FLEXERIL 10 MG TABS 1/2 TO 1 TABLET Q12H NEEDED FLEXERIL 10 MG TABS CYCLOBENZAPRINE HCL Inactive CIPRO 250 MG TABS TAKE ONE TABLET BY MOUTH TWICE DAILY FOR 5 DAYS CIPRO 250 MG TABS 025246 CIPROFLOXACIN HCL Inactive BACTRIM DS 800-160 MG TABS TAKE ONE TABLET BY MOUTH TWICE DAILY FOR 7 DAYS BACTRIM DS 800-160 MG TABS SULFAMETHOXAZOLE-TRIMETHOPRIM Inactive BACTRIM DS 800-160 MG TABS one tablet twice a day for seven days BACTRIM DS 800-160 MG TABS SULFAMETHOXAZOLE-TRIMETHOPRIM Inactive MACROBID 100 MG CAP 1 cap by mouth twice daily MACROBID 100 MG CAP 387135 NITROFURANTOIN MONOHYD MACRO Inactive JANUVIA 100 MG TABS Take 1 tab daily JANUVIA 100 MG TABS SITAGLIPTIN PHOSPHATE Inactive MACRODANTIN 100 MG CAPS 1 capsule by mouth twice daily for seven days MACRODANTIN 100 MG CAPS 708721 NITROFURANTOIN MACROCRYSTAL Inactive AMOXICILLIN 500 MG CAPS 2 po BID x 10 days AMOXICILLIN 500 MG CAPS 829230 AMOXICILLIN Inactive Advance Directives Directive Description Start Date PERMISSION TO SHARE Immunizations Vaccine Administration Date Value Standard Description pneumococcal immunization administered Pneumovax 23 [CVX33] pneumococcal polysaccharide vaccine, 23 valent Seasonal influenza vaccine, injectable, containing preservative, for > 3 years old (Afluria, FluLaval, Fluzone, Fluvirin, Fluarix, Agriflu(>=18 yo)) Fluzone (>3 yrs.) [[id number]] Influenza, seasonal, injectable Vital Signs Date Name [...] Panel - Chemistry sodium, serum 137 mmol/L 818-095 7264/01/09 potassium, serum 4.3 mmol/L 3.5-5.2 chloride, serum 99 mmol/L 98-107 carbon dioxide, venous blood 28.4 mmol/L 21.0-32.0 blood glucose 131 mg/dL 65-110 calcium, serum 9.7 mg/dL 8.5-10.1 urea nitrogen, blood 19 mg/dL 7-18 creatinine, serum 0.80 mg/dL 0.60-1.30 hemoglobin A1C, blood, as % of total hemoglobin 7.0 % 4.3-6.0 cholesterol, serum 156 mg/dL 780-350 3053/01/09 triglyceride, serum, fasting 168 mg/dL 30-200 HDL [...] HGBA1C - Chemistry sodium, serum 140 mmol/L 954-747 0463/07/23 potassium, serum 4.5 mmol/L 3.5-5.2 chloride, serum [...] 200 mg/dL cholesterol, target level 200 mg/dL Encounters Code Encounter Date Provider Facility CPT-53559 Level 3 Est. Patient 16:41:34 CDT Nadir Hector MD [facility] CPT-89657 Level 4 Est. Patient 13:54:35 VALIDATION CONSULTANT Nadir Hector MD [facility] CPT-81899 Level 3 Est. Patient 15:51:21 CDT Nadir Hector MD [facility] CPT-42941 Level 4 New Patient 15:58:26 CDT Catalino Irene MD [facility] CPT-01377 Level 4 Est. Patient 15:42:38 VALIDATION CONSULTANT Nadir Hector MD [facility] Procedures Code Procedure Name Date Entry Date Standard Description CPT-000 Give Appropriate Flu Vaccine 13:54:35 VALIDATION CONSULTANT CPT-000 Give Pneumovax 13:54:35 VALIDATION CONSULTANT CPT-37376 Administration 2+ single or combination vaccines inc oral 14:01:24 VALIDATION CONSULTANT CPT-06693 Administration single or combination vaccine inc oral 14 :01:24 VALIDATION CONSULTANT CPT-74828 Influenza High Dose age 65+ 14:01:24 VALIDATION CONSULTANT CPT-48670 Pneumovax 14:01:24 VALIDATION CONSULTANT CPT-67466 Venipuncture Draw Fee 10:36:48 CDT CPT-000 Give Appropriate Flu Vaccine 15:20:11 VALIDATION CONSULTANT CPT-85862 Administration single or combination vaccine inc oral 15 :50:33 VALIDATION CONSULTANT CPT-29138 Influenza High Dose age 65+ 15:50:33 VALIDATION CONSULTANT CPT-51855 LS spine AP and Lat 15:30:05 VALIDATION CONSULTANT CPT-24797 Hip comp min 2V 15:30:05 VALIDATION CONSULTANT CPT-31717 Postop F/U Visit 17:28:18 CDT CPT-OV Office Visit 15:04:38 CDT CPT-88336 Bladder Scan 15:58:26 CDT CPT-14475 Cystoscopy 15:58:26 CDT CPT-OV Office Visit 16:15:09 CDT CPT-000 Give Appropriate Flu Vaccine 16:33:10 VALIDATION CONSULTANT CPT-37918 Administration single or combination vaccine inc oral 19 :21:12 VALIDATION CONSULTANT CPT-71598 Influenza split virus > age 3 19:21:12 VALIDATION CONSULTANT
--- OUTSIDE RECORDS SUMMARY | 2017-11-11 07:40 | XMS REPORT ---
Author Author [facility] [employer] [facility] Medical Staff Organization [facility] Address [address] [place], [place] [address] Phone [phone] Care Team Providers Care Cmm Operator Name Role Phone MARYANNE BOONE MD PP [phone] Summary purpose TRANSITION OF CARE AUTO GENERATION Chief Complaint and Reason for Visit No authorized Reason for Visit (Admitting Diagnosis) is available for this visit. Problem list No authorized problems tracked for continuity of care are available for this visit. Encounters No authorized problems tracked for encounter diagnoses are available for this visit. Medications No home medications recorded for this patient visit Allergies, [...]
--- OUTSIDE RECORDS SUMMARY | 2017-11-11 07:41 | XMS REPORT | Clinical Summary ---
Author Author Admin, IMTIAZ Organization [facility] Address Unknown Phone Unavailable Allergies, Adverse Reactions, [...] general medical examination at a [facility] care facility PERIPHERAL NEUROPATHY 356.9 Active [...] 2 po BID x 10 days AMOXICILLIN 97816202130 No Longer Active Nadir Hector MD Active GLUCOTROL XL 5 MG [id number] one tablet daily GLIPIZIDE 38651979344 Active Nadir Hector MD Active JANUVIA 100 MG TABS 1 tablet by mouth daily SITAGLIPTIN PHOSPHATE 71065449152 No Longer Active Nadir Hector MD Active JANUVIA 100 MG TABS Take 1 tab daily SITAGLIPTIN PHOSPHATE 77985107522 No Longer Active Sharon Nuñez Active MACROBID 100 MG CAP 1 cap by mouth twice daily NITROFURANTOIN MONOHYD MACRO 69482301045 No Longer Active Crystal Fernández APRN Active MACRODANTIN 100 MG CAPS 1 capsule by mouth twice daily for seven days NITROFURANTOIN MACROCRYSTAL 56221673483 No Longer Active Ro Yang RN Active BACTRIM DS 800-160 MG TABS one tablet twice a day for seven days SULFAMETHOXAZOLE-TRIMETHOPRIM 50613043226 No Longer Active HEMANTH Griffin Active BACTRIM DS 800-160 MG TABS TAKE ONE TABLET BY MOUTH TWICE DAILY FOR 7 DAYS SULFAMETHOXAZOLE-TRIMETHOPRIM 13002268415 No Longer Active Viviana Lal RN Active CIPRO 250 MG TABS TAKE ONE TABLET BY MOUTH TWICE DAILY FOR 5 DAYS CIPROFLOXACIN HCL 96976269425 No Longer Active Viviana Lal RN Active FLEXERIL 10 MG TABS 1/2 TO 1 TABLET Q12H NEEDED CYCLOBENZAPRINE HCL 57847015786 No Longer Active Viviana Lal RN Active AMLODIPINE BESYLATE 5 MG TABS 1 1/2 daily AMLODIPINE BESYLATE 89890243144 Active Nadir Hector MD Active ONGLYZA 5 MG TABS 1 QAM SAXAGLIPTIN HCL 01457644833 No Longer Active Nadir Hector MD Active AMLODIPINE BESYLATE 5 MG TABS 1 1/2 TABLET DAILY AMLODIPINE BESYLATE 79495310123 No Longer Active Nadir Hector MD Active LORTAB 5-500 MG TABS 1 BY MOUTH Q6H NEEDED HYDROCODONE- ACETAMINOPHEN 83286524517 No Longer Active Nadir Hector MD Active ACTOS 45 MG TABS 1 QD PIOGLITAZONE HCL 43912213395 No Longer Active Nadir Hector MD Active BACTRIM DS 800-160 MG TAB 1 tab by mouth twice daily TRIMETHOPRIM-SULFAMETHOXAZOLE 21189371912 No Longer Active Nadir Hector MD Active CALCIUM + D 600-200 MG-UNIT TABS 1 TABLET TWO TIMES A DAY CALCIUM CARBONATE-VITAMIN D 42064953098 Active Ro Yang RN Active METOPROLOL SUCCINATE 25 MG [id number] 1 QAM METOPROLOL SUCCINATE 82885066015 Active Nadir Hector MD Active AMARYL 4 MG TABS 1 QD GLIMEPIRIDE 54496258922 Active Nadir Hector MD Active LOVASTATIN 40 MG TABS 1 QD LOVASTATIN 89054457721 Active Nadir Hector MD Active GLUCOPHAGE 1000 MG TABS 1 TABLET TWO TIMES A DAY METFORMIN HCL 17044392622 Active Nadir Hector MD Active MAXZIDE-25 37.5-25 MG TABS 1 QD TRIAMTERENE-HCTZ 66666970793 Active Nadir Hector MD Active ACCUPRIL 40 MG TABS 1 QD QUINAPRIL HCL 77314554987 Active Nadir Hector MD Active BACTRIM DS 800-160 MG TAB 1 tab by mouth twice daily BACTRIM DS 800-160 MG TAB TRIMETHOPRIM-SULFAMETHOXAZOLE Inactive ACTOS 45 MG TABS 1 QD ACTOS 45 MG TABS 140832 PIOGLITAZONE HCL Inactive LORTAB 5-500 MG TABS 1 BY MOUTH Q6H NEEDED LORTAB 5-500 MG TABS HYDROCODONE-ACETAMINOPHEN Inactive AMLODIPINE BESYLATE 5 MG TABS 1 1/2 TABLET DAILY AMLODIPINE BESYLATE 5 MG TABS 935268 AMLODIPINE BESYLATE Inactive ONGLYZA 5 MG TABS 1 QAM ONGLYZA 5 MG TABS SAXAGLIPTIN HCL Inactive FLEXERIL 10 MG TABS 1/2 TO 1 TABLET Q12H NEEDED FLEXERIL 10 MG TABS CYCLOBENZAPRINE HCL Inactive CIPRO 250 MG TABS TAKE ONE TABLET BY MOUTH TWICE DAILY FOR 5 DAYS CIPRO 250 MG TABS 454848 CIPROFLOXACIN HCL Inactive BACTRIM DS 800-160 MG TABS TAKE ONE TABLET BY MOUTH TWICE DAILY FOR 7 DAYS BACTRIM DS 800-160 MG TABS SULFAMETHOXAZOLE-TRIMETHOPRIM Inactive BACTRIM DS 800-160 MG TABS one tablet twice a day for seven days BACTRIM DS 800-160 MG TABS SULFAMETHOXAZOLE-TRIMETHOPRIM Inactive MACROBID 100 MG CAP 1 cap by mouth twice daily MACROBID 100 MG CAP 943089 NITROFURANTOIN MONOHYD MACRO Inactive JANUVIA 100 MG TABS Take 1 tab daily JANUVIA 100 MG TABS SITAGLIPTIN PHOSPHATE Inactive MACRODANTIN 100 MG CAPS 1 capsule by mouth twice daily for seven days MACRODANTIN 100 MG CAPS 670228 NITROFURANTOIN MACROCRYSTAL Inactive AMOXICILLIN 500 MG CAPS 2 po BID x 10 days AMOXICILLIN 500 MG CAPS 043090 AMOXICILLIN Inactive Advance Directives Directive Description Start Date PERMISSION TO SHARE Immunizations Vaccine Administration Date Value Standard Description pneumococcal immunization administered Pneumovax 23 [CVX33] pneumococcal polysaccharide vaccine, 23 valent Seasonal influenza vaccine, injectable, containing preservative, for > 3 years old (Afluria, FluLaval, Fluzone, Fluvirin, Fluarix, Agriflu(>=18 yo)) Fluzone (>3 yrs.) [[id number]] Influenza, seasonal, injectable Vital Signs Date Name [...] Panel - Chemistry sodium, serum 139 mmol/L 557-616 8188/09/05 potassium, serum 4.1 mmol/L 3.5-5.2 chloride, serum 103 mmol/L 98-107 carbon dioxide, venous blood 29.8 mmol/L 21.0-32.0 blood glucose 81 mg/dL 65-110 calcium, serum 8.9 mg/dL 8.5-10.1 urea nitrogen, blood 16 mg/dL 7-18 creatinine, serum 1.10 mg/dL 0.60-1.30 Lab Report: CBC, Basic Metabolic Panel, HGBA1C, Lipid Panel - Chemistry sodium, serum 137 mmol/L 744-869 5770/01/09 potassium, serum 4.3 mmol/L 3.5-5.2 chloride, serum 99 mmol/L 98-107 carbon dioxide, venous blood 28.4 mmol/L 21.0-32.0 blood glucose 131 mg/dL 65-110 calcium, serum 9.7 mg/dL 8.5-10.1 urea nitrogen, blood 19 mg/dL 7-18 creatinine, serum 0.80 mg/dL 0.60-1.30 hemoglobin A1C, blood, as % of total hemoglobin 7.0 % 4.3-6.0 cholesterol, serum 156 mg/dL 780-635 0258/01/09 triglyceride, serum, fasting 168 mg/dL 30-200 HDL [...] HGBA1C - Chemistry sodium, serum 140 mmol/L 079-913 5702/07/23 potassium, serum 4.5 mmol/L 3.5-5.2 chloride, serum [...] No Encounters Code Encounter Date Provider Facility CPT-18844 Level 3 Est. Patient 16:41:34 CDT Nadir Hecotr MD [facility] CPT-02555 Level 4 Est. Patient 13:54:35 COLLABORATIVE PHYSICIAN Nadir Hector MD [facility] CPT-20318 Level 3 Est. Patient 15:51:21 CDT Nadir Hector MD [facility] CPT-96738 Level 4 New Patient 15:58:26 CDT Catalino Irene MD [facility] CPT-06306 Level 4 Est. Patient 15:42:38 COLLABORATIVE PHYSICIAN Nadir Hector MD [facility] Procedures Code Procedure Name Date Entry Date Standard Description CPT-000 Give Appropriate Flu Vaccine 13:54:35 COLLABORATIVE PHYSICIAN CPT-000 Give Pneumovax 13:54:35 COLLABORATIVE PHYSICIAN CPT-74576 Administration 2+ single or combination vaccines inc oral 14:01:24 COLLABORATIVE PHYSICIAN CPT-19695 Administration single or combination vaccine inc oral 14 :01:24 COLLABORATIVE PHYSICIAN CPT-62390 Influenza High Dose age 65+ 14:01:24 COLLABORATIVE PHYSICIAN CPT-66842 Pneumovax 14:01:24 COLLABORATIVE PHYSICIAN CPT-01192 Venipuncture Draw Fee 10:36:48 CDT CPT-000 Give Appropriate Flu Vaccine 15:20:11 COLLABORATIVE PHYSICIAN CPT-37321 Administration single or combination vaccine inc oral 15 :50:33 COLLABORATIVE PHYSICIAN CPT-45401 Influenza High Dose age 65+ 15:50:33 COLLABORATIVE PHYSICIAN CPT-29798 LS spine AP and Lat 15:30:05 COLLABORATIVE PHYSICIAN CPT-61338 Hip comp min 2V 15:30:05 COLLABORATIVE PHYSICIAN CPT-12072 Postop F/U Visit 17:28:18 CDT CPT-OV Office Visit 15:04:38 CDT CPT-50752 Bladder Scan 15:58:26 CDT CPT-11597 Cystoscopy 15:58:26 CDT CPT-OV Office Visit 16:15:09 CDT CPT-000 Give Appropriate Flu Vaccine 16:33:10 COLLABORATIVE PHYSICIAN CPT-24568 Administration single or combination vaccine inc oral 19 :21:12 COLLABORATIVE PHYSICIAN CPT-77609 Influenza split virus > age 3 19:21:12 COLLABORATIVE PHYSICIAN
--- OUTSIDE RECORDS SUMMARY | 2017-11-11 07:41 | XMS REPORT | Clinical Summary ---
Author Author Admin, IMTIZA Organization [facility] Address Unknown Phone Unavailable Allergies, Adverse [...] general medical examination at a [facility] care facility PERIPHERAL NEUROPATHY 356.9 Active [...] 2 po BID x 10 days AMOXICILLIN 69601242669 No Longer Active Nadir Hector MD Active GLUCOTROL XL 5 MG [id number] one tablet daily GLIPIZIDE 27405169669 Active Nadir Hector MD Active JANUVIA 100 MG TABS 1 tablet by mouth daily SITAGLIPTIN PHOSPHATE 57484961411 No Longer Active Nadir Hector MD Active JANUVIA 100 MG TABS Take 1 tab daily SITAGLIPTIN PHOSPHATE 78101019974 No Longer Active Sharon Nuñez Active MACROBID 100 MG CAP 1 cap by mouth twice daily NITROFURANTOIN MONOHYD MACRO 85688260445 No Longer Active Crystal Fernández APRN Active MACRODANTIN 100 MG CAPS 1 capsule by mouth twice daily for seven days NITROFURANTOIN MACROCRYSTAL 06766413830 No Longer Active Ro Yang RN Active BACTRIM DS 800-160 MG TABS one tablet twice a day for seven days SULFAMETHOXAZOLE-TRIMETHOPRIM 18166581413 No Longer Active HEMANTH Griffin Active BACTRIM DS 800-160 MG TABS TAKE ONE TABLET BY MOUTH TWICE DAILY FOR 7 DAYS SULFAMETHOXAZOLE-TRIMETHOPRIM 39037830822 No Longer Active Viviana Lal RN Active CIPRO 250 MG TABS TAKE ONE TABLET BY MOUTH TWICE DAILY FOR 5 DAYS CIPROFLOXACIN HCL 54821638593 No Longer Active Viviana Lal RN Active FLEXERIL 10 MG TABS 1/2 TO 1 TABLET Q12H NEEDED CYCLOBENZAPRINE HCL 67180544080 No Longer Active Viviana Lal RN Active AMLODIPINE BESYLATE 5 MG TABS 1 1/2 daily AMLODIPINE BESYLATE 44686818610 Active Nadir Hector MD Active ONGLYZA 5 MG TABS 1 QAM SAXAGLIPTIN HCL 94404974234 No Longer Active Nadir Hector MD Active AMLODIPINE BESYLATE 5 MG TABS 1 1/2 TABLET DAILY AMLODIPINE BESYLATE 19390639955 No Longer Active Nadir Hector MD Active LORTAB 5-500 MG TABS 1 BY MOUTH Q6H NEEDED HYDROCODONE- ACETAMINOPHEN 59465618488 No Longer Active Nadir Hector MD Active ACTOS 45 MG TABS 1 QD PIOGLITAZONE HCL 15719401857 No Longer Active Nadir Hector MD Active BACTRIM DS 800-160 MG TAB 1 tab by mouth twice daily TRIMETHOPRIM-SULFAMETHOXAZOLE 64215187970 No Longer Active Nadir Hector MD Active CALCIUM + D 600-200 MG-UNIT TABS 1 TABLET TWO TIMES A DAY CALCIUM CARBONATE-VITAMIN D 28879599219 Active Ro Yang RN Active METOPROLOL SUCCINATE 25 MG [id number] 1 QAM METOPROLOL SUCCINATE 36356809413 Active Nadir Hector MD Active AMARYL 4 MG TABS 1 QD GLIMEPIRIDE 25539502343 Active Nadir Hector MD Active LOVASTATIN 40 MG TABS 1 QD LOVASTATIN 52025855102 Active Nadir Hector MD Active GLUCOPHAGE 1000 MG TABS 1 TABLET TWO TIMES A DAY METFORMIN HCL 77519924077 Active Nadir Hector MD Active MAXZIDE-25 37.5-25 MG TABS 1 QD TRIAMTERENE-HCTZ 78602985801 Active Nadir Hector MD Active ACCUPRIL 40 MG TABS 1 QD QUINAPRIL HCL 12104484896 Active Nadir Hector MD Active BACTRIM DS 800-160 MG TAB 1 tab by mouth twice daily BACTRIM DS 800-160 MG TAB TRIMETHOPRIM-SULFAMETHOXAZOLE Inactive ACTOS 45 MG TABS 1 QD ACTOS 45 MG TABS 867273 PIOGLITAZONE HCL Inactive LORTAB 5-500 MG TABS 1 BY MOUTH Q6H NEEDED LORTAB 5-500 MG TABS HYDROCODONE-ACETAMINOPHEN Inactive AMLODIPINE BESYLATE 5 MG TABS 1 1/2 TABLET DAILY AMLODIPINE BESYLATE 5 MG TABS 210421 AMLODIPINE BESYLATE Inactive ONGLYZA 5 MG TABS 1 QAM ONGLYZA 5 MG TABS SAXAGLIPTIN HCL Inactive FLEXERIL 10 MG TABS 1/2 TO 1 TABLET Q12H NEEDED FLEXERIL 10 MG TABS CYCLOBENZAPRINE HCL Inactive CIPRO 250 MG TABS TAKE ONE TABLET BY MOUTH TWICE DAILY FOR 5 DAYS CIPRO 250 MG TABS 895830 CIPROFLOXACIN HCL Inactive BACTRIM DS 800-160 MG TABS TAKE ONE TABLET BY MOUTH TWICE DAILY FOR 7 DAYS BACTRIM DS 800-160 MG TABS SULFAMETHOXAZOLE-TRIMETHOPRIM Inactive BACTRIM DS 800-160 MG TABS one tablet twice a day for seven days BACTRIM DS 800-160 MG TABS SULFAMETHOXAZOLE-TRIMETHOPRIM Inactive MACROBID 100 MG CAP 1 cap by mouth twice daily MACROBID 100 MG CAP 002650 NITROFURANTOIN MONOHYD MACRO Inactive JANUVIA 100 MG TABS Take 1 tab daily JANUVIA 100 MG TABS SITAGLIPTIN PHOSPHATE Inactive MACRODANTIN 100 MG CAPS 1 capsule by mouth twice daily for seven days MACRODANTIN 100 MG CAPS 320455 NITROFURANTOIN MACROCRYSTAL Inactive AMOXICILLIN 500 MG CAPS 2 po BID x 10 days AMOXICILLIN 500 MG CAPS 604536 AMOXICILLIN Inactive Advance Directives Directive Description Start Date PERMISSION TO SHARE Immunizations Vaccine Administration Date Value Standard Description pneumococcal immunization administered Pneumovax 23 [CVX33] pneumococcal polysaccharide vaccine, 23 valent Seasonal influenza vaccine, injectable, containing preservative, for > 3 years old (Afluria, FluLaval, Fluzone, Fluvirin, Fluarix, Agriflu(>=18 yo)) Fluzone (>3 yrs.) [[id number]] Influenza, seasonal, injectable Vital Signs Date Name [...] Panel - Chemistry sodium, serum 137 mmol/L 648-758 8761/01/09 potassium, serum 4.3 mmol/L 3.5-5.2 chloride, serum 99 mmol/L 98-107 carbon dioxide, venous blood 28.4 mmol/L 21.0-32.0 blood glucose 131 mg/dL 65-110 calcium, serum 9.7 mg/dL 8.5-10.1 urea nitrogen, blood 19 mg/dL 7-18 creatinine, serum 0.80 mg/dL 0.60-1.30 hemoglobin A1C, blood, as % of total hemoglobin 7.0 % 4.3-6.0 cholesterol, serum 156 mg/dL 099-614 3005/01/09 triglyceride, serum, fasting 168 mg/dL 30-200 HDL [...] HGBA1C - Chemistry sodium, serum 140 mmol/L 874-239 5676/07/23 potassium, serum 4.5 mmol/L 3.5-5.2 chloride, serum [...] No Encounters Code Encounter Date Provider Facility CPT-28201 Level 3 Est. Patient 16:41:34 CDT Nadir Hector MD [facility] CPT-20506 Level 4 Est. Patient 13:54:35 TONAL REGULATOR Nadir Hector MD [facility] CPT-00228 Level 3 Est. Patient 15:51:21 CDT Nadir Hector MD [facility] CPT-94930 Level 4 New Patient 15:58:26 CDT Catalino Irene MD [facility] CPT-04480 Level 4 Est. Patient 15:42:38 TONAL REGULATOR Nadir Hector MD [facility] Procedures Code Procedure Name Date Entry Date Standard Description CPT-000 Give Appropriate Flu Vaccine 13:54:35 TONAL REGULATOR CPT-000 Give Pneumovax 13:54:35 TONAL REGULATOR CPT-60676 Administration 2+ single or combination vaccines inc oral 14:01:24 TONAL REGULATOR CPT-55505 Administration single or combination vaccine inc oral 14 :01:24 TONAL REGULATOR CPT-71637 Influenza High Dose age 65+ 14:01:24 TONAL REGULATOR CPT-24533 Pneumovax 14:01:24 TONAL REGULATOR CPT-17606 Venipuncture Draw Fee 10:36:48 CDT CPT-000 Give Appropriate Flu Vaccine 15:20:11 TONAL REGULATOR CPT-30053 Administration single or combination vaccine inc oral 15 :50:33 TONAL REGULATOR CPT-14894 Influenza High Dose age 65+ 15:50:33 TONAL REGULATOR CPT-27894 LS spine AP and Lat 15:30:05 TONAL REGULATOR CPT-22133 Hip comp min 2V 15:30:05 TONAL REGULATOR CPT-36432 Postop F/U Visit 17:28:18 CDT CPT-OV Office Visit 15:04:38 CDT CPT-05590 Bladder Scan 15:58:26 CDT CPT-72058 Cystoscopy 15:58:26 CDT CPT-OV Office Visit 16:15:09 CDT CPT-000 Give Appropriate Flu Vaccine 16:33:10 TONAL REGULATOR CPT-49030 Administration single or combination vaccine inc oral 19 :21:12 TONAL REGULATOR CPT-71663 Influenza split virus > age 3 19:21:12 TONAL REGULATOR
--- OUTSIDE RECORDS SUMMARY | 2017-11-11 07:42 | XMS REPORT | Clinical Summary ---
Author Author Admin, IMTIAZ Organization [facility] Address Unknown Phone Unavailable Allergies, Adverse [...] MD Routine general medical examination at a [facility] care facility PERIPHERAL NEUROPATHY 356.9 Active Nadir [...] 2 po BID x 10 days AMOXICILLIN 71215723008 No Longer Active Nadir Hector MD Active GLUCOTROL XL 5 MG [id number] one tablet daily GLIPIZIDE 49388106821 Active Nadir Hector MD Active JANUVIA 100 MG TABS 1 tablet by mouth daily SITAGLIPTIN PHOSPHATE 38915926980 No Longer Active Nadir Hector MD Active JANUVIA 100 MG TABS Take 1 tab daily SITAGLIPTIN PHOSPHATE 64502596662 No Longer Active Sharon Nuñez Active MACROBID 100 MG CAP 1 cap by mouth twice daily NITROFURANTOIN MONOHYD MACRO 96872120912 No Longer Active Crystal Fernández APRN Active MACRODANTIN 100 MG CAPS 1 capsule by mouth twice daily for seven days NITROFURANTOIN MACROCRYSTAL 47548693774 No Longer Active Ro Yang RN Active BACTRIM DS 800-160 MG TABS one tablet twice a day for seven days SULFAMETHOXAZOLE-TRIMETHOPRIM 74125367011 No Longer Active HEMANTH Griffin Active BACTRIM DS 800-160 MG TABS TAKE ONE TABLET BY MOUTH TWICE DAILY FOR 7 DAYS SULFAMETHOXAZOLE-TRIMETHOPRIM 14519574887 No Longer Active Viviana Lal RN Active CIPRO 250 MG TABS TAKE ONE TABLET BY MOUTH TWICE DAILY FOR 5 DAYS CIPROFLOXACIN HCL 86655323485 No Longer Active Viviana Lal RN Active FLEXERIL 10 MG TABS 1/2 TO 1 TABLET Q12H NEEDED CYCLOBENZAPRINE HCL 56437670175 No Longer Active Viviana Lal RN Active AMLODIPINE BESYLATE 5 MG TABS 1 1/2 daily AMLODIPINE BESYLATE 55106536932 Active Nadri Hector MD Active ONGLYZA 5 MG TABS 1 QAM SAXAGLIPTIN HCL 57541606990 No Longer Active Nadir Hector MD Active AMLODIPINE BESYLATE 5 MG TABS 1 1/2 TABLET DAILY AMLODIPINE BESYLATE 25967332839 No Longer Active Nadir Hector MD Active LORTAB 5-500 MG TABS 1 BY MOUTH Q6H NEEDED HYDROCODONE- ACETAMINOPHEN 62313614870 No Longer Active Ndair Hector MD Active ACTOS 45 MG TABS 1 QD PIOGLITAZONE HCL 18157387640 No Longer Active Nadir Hector MD Active BACTRIM DS 800-160 MG TAB 1 tab by mouth twice daily TRIMETHOPRIM-SULFAMETHOXAZOLE 75582257507 No Longer Active Nadir Hector MD Active CALCIUM + D 600-200 MG-UNIT TABS 1 TABLET TWO TIMES A DAY CALCIUM CARBONATE-VITAMIN D 44658676089 Active Ro Yang RN Active METOPROLOL SUCCINATE 25 MG [id number] 1 QAM METOPROLOL SUCCINATE 89497660998 Active Nadir Hector MD Active AMARYL 4 MG TABS 1 QD GLIMEPIRIDE 40494051834 Active Nadir Hector MD Active LOVASTATIN 40 MG TABS 1 QD LOVASTATIN 74217168770 Active Nadir Hector MD Active GLUCOPHAGE 1000 MG TABS 1 TABLET TWO TIMES A DAY METFORMIN HCL 79866097301 Active Nadir Hector MD Active MAXZIDE-25 37.5-25 MG TABS 1 QD TRIAMTERENE-HCTZ 85124667761 Active Nadir Hector MD Active ACCUPRIL 40 MG TABS 1 QD QUINAPRIL HCL 31129798761 Active Nadir Hector MD Active BACTRIM DS 800-160 MG TAB 1 tab by mouth twice daily BACTRIM DS 800-160 MG TAB TRIMETHOPRIM-SULFAMETHOXAZOLE Inactive ACTOS 45 MG TABS 1 QD ACTOS 45 MG TABS 919043 PIOGLITAZONE HCL Inactive LORTAB 5-500 MG TABS 1 BY MOUTH Q6H NEEDED LORTAB 5-500 MG TABS HYDROCODONE-ACETAMINOPHEN Inactive AMLODIPINE BESYLATE 5 MG TABS 1 1/2 TABLET DAILY AMLODIPINE BESYLATE 5 MG TABS 142601 AMLODIPINE BESYLATE Inactive ONGLYZA 5 MG TABS 1 QAM ONGLYZA 5 MG TABS SAXAGLIPTIN HCL Inactive FLEXERIL 10 MG TABS 1/2 TO 1 TABLET Q12H NEEDED FLEXERIL 10 MG TABS CYCLOBENZAPRINE HCL Inactive CIPRO 250 MG TABS TAKE ONE TABLET BY MOUTH TWICE DAILY FOR 5 DAYS CIPRO 250 MG TABS 261530 CIPROFLOXACIN HCL Inactive BACTRIM DS 800-160 MG TABS TAKE ONE TABLET BY MOUTH TWICE DAILY FOR 7 DAYS BACTRIM DS 800-160 MG TABS SULFAMETHOXAZOLE-TRIMETHOPRIM Inactive BACTRIM DS 800-160 MG TABS one tablet twice a day for seven days BACTRIM DS 800-160 MG TABS SULFAMETHOXAZOLE-TRIMETHOPRIM Inactive MACROBID 100 MG CAP 1 cap by mouth twice daily MACROBID 100 MG CAP 254463 NITROFURANTOIN MONOHYD MACRO Inactive JANUVIA 100 MG TABS Take 1 tab daily JANUVIA 100 MG TABS SITAGLIPTIN PHOSPHATE Inactive MACRODANTIN 100 MG CAPS 1 capsule by mouth twice daily for seven days MACRODANTIN 100 MG CAPS 567173 NITROFURANTOIN MACROCRYSTAL Inactive AMOXICILLIN 500 MG CAPS 2 po BID x 10 days AMOXICILLIN 500 MG CAPS 898173 AMOXICILLIN Inactive Advance Directives Directive Description Start Date PERMISSION TO SHARE Immunizations Vaccine Administration Date Value Standard Description pneumococcal immunization administered Pneumovax 23 [CVX33] pneumococcal polysaccharide vaccine, 23 valent Seasonal influenza vaccine, injectable, containing preservative, for > 3 years old (Afluria, FluLaval, Fluzone, Fluvirin, Fluarix, Agriflu(>=18 yo)) Fluzone (>3 yrs.) [OLN159] Influenza, seasonal, injectable Vital Signs Date Name [...] Panel - Chemistry sodium, serum 139 mmol/L 783-023 8745/09/05 potassium, serum 4.1 mmol/L 3.5-5.2 chloride, serum 103 mmol/L 98-107 carbon dioxide, venous blood 29.8 mmol/L 21.0-32.0 blood glucose 81 mg/dL 65-110 calcium, serum 8.9 mg/dL 8.5-10.1 urea nitrogen, blood 16 mg/dL 7-18 creatinine, serum 1.10 mg/dL 0.60-1.30 Lab Report: CBC, Basic Metabolic Panel, HGBA1C, Lipid Panel - Chemistry sodium, serum 137 mmol/L 827-321 9453/01/09 potassium, serum 4.3 mmol/L 3.5-5.2 chloride, serum 99 mmol/L 98-107 carbon dioxide, venous blood 28.4 mmol/L 21.0-32.0 blood glucose 131 mg/dL 65-110 calcium, serum 9.7 mg/dL 8.5-10.1 urea nitrogen, blood 19 mg/dL 7-18 creatinine, serum 0.80 mg/dL 0.60-1.30 hemoglobin A1C, blood, as % of total hemoglobin 7.0 % 4.3-6.0 cholesterol, serum 156 mg/dL 689-620 2677/01/09 triglyceride, serum, fasting 168 mg/dL 30-200 HDL [...] HGBA1C - Chemistry sodium, serum 140 mmol/L 336-610 9732/07/23 potassium, serum 4.5 mmol/L 3.5-5.2 chloride, serum [...] No Encounters Code Encounter Date Provider Facility CPT-84646 Level 3 Est. Patient 16:41:34 CDT Nadir Hector MD [facility] CPT-51977 Level 4 Est. Patient 13:54:35 STAVE HEWER Nadir Hector MD [facility] CPT-16445 Level 3 Est. Patient 15:51:21 CDT Nadir Hector MD [facility] CPT-84025 Level 4 New Patient 15:58:26 CDT Catalino Irene MD [facility] CPT-56444 Level 4 Est. Patient 15:42:38 STAVE HEWER Nadir Hector MD [facility] Procedures Code Procedure Name Date Entry Date Standard Description CPT-000 Give Appropriate Flu Vaccine 13:54:35 STAVE HEWER CPT-000 Give Pneumovax 13:54:35 STAVE HEWER CPT-93638 Administration 2+ single or combination vaccines inc oral 14:01:24 STAVE HEWER CPT-63336 Administration single or combination vaccine inc oral 14 :01:24 STAVE HEWER CPT-15358 Influenza High Dose age 65+ 14:01:24 STAVE HEWER CPT-42903 Pneumovax 14:01:24 STAVE HEWER CPT-59645 Venipuncture Draw Fee 10:36:48 CDT CPT-000 Give Appropriate Flu Vaccine 15:20:11 STAVE HEWER CPT-03852 Administration single or combination vaccine inc oral 15 :50:33 STAVE HEWER CPT-53087 Influenza High Dose age 65+ 15:50:33 STAVE HEWER CPT-11044 LS spine AP and Lat 15:30:05 STAVE HEWER CPT-85250 Hip comp min 2V 15:30:05 STAVE HEWER CPT-52086 Postop F/U Visit 17:28:18 CDT CPT-OV Office Visit 15:04:38 CDT CPT-74274 Bladder Scan 15:58:26 CDT CPT-57487 Cystoscopy 15:58:26 CDT CPT-OV Office Visit 16:15:09 CDT CPT-000 Give Appropriate Flu Vaccine 16:33:10 STAVE HEWER CPT-63272 Administration single or combination vaccine inc oral 19 :21:12 STAVE HEWER CPT-55222 Influenza split virus > age 3 19:21:12 STAVE HEWER
--- OUTSIDE RECORDS SUMMARY | 2017-11-11 07:42 | XMS REPORT | Clinical Summary ---
Author Author Admin, IMTIAZ Organization [facility] Address Unknown Phone Unavailable Allergies, Adverse [...] 2 po BID x 10 days AMOXICILLIN 95120918911 No Longer Active Nadir Hector MD Active GLUCOTROL XL 5 MG [id number] one tablet daily GLIPIZIDE 56974822975 Active Nadir Hector MD Active JANUVIA 100 MG TABS 1 tablet by mouth daily SITAGLIPTIN PHOSPHATE 17577699481 No Longer Active Nadir Hector MD Active JANUVIA 100 MG TABS Take 1 tab daily SITAGLIPTIN PHOSPHATE 28056713572 No Longer Active Sharon Nuñez Active MACROBID 100 MG CAP 1 cap by mouth twice daily NITROFURANTOIN MONOHYD MACRO 84976427073 No Longer Active Crysatl Fernández APRN Active MACRODANTIN 100 MG CAPS 1 capsule by mouth twice daily for seven days NITROFURANTOIN MACROCRYSTAL 13587687636 No Longer Active Ro Yang RN Active BACTRIM DS 800-160 MG TABS one tablet twice a day for seven days SULFAMETHOXAZOLE-TRIMETHOPRIM 27903853597 No Longer Active HEMANTH Griffin Active BACTRIM DS 800-160 MG TABS TAKE ONE TABLET BY MOUTH TWICE DAILY FOR 7 DAYS SULFAMETHOXAZOLE-TRIMETHOPRIM 85918342977 No Longer Active Viviana Lal RN Active CIPRO 250 MG TABS TAKE ONE TABLET BY MOUTH TWICE DAILY FOR 5 DAYS CIPROFLOXACIN HCL 60755740217 No Longer Active Viviana Lal RN Active FLEXERIL 10 MG TABS 1/2 TO 1 TABLET Q12H NEEDED CYCLOBENZAPRINE HCL 24084536838 No Longer Active Viviana Lal RN Active AMLODIPINE BESYLATE 5 MG TABS 1 1/2 daily AMLODIPINE BESYLATE 78983239734 Active Nadir Hector MD Active ONGLYZA 5 MG TABS 1 QAM SAXAGLIPTIN HCL 27222078446 No Longer Active Nadir Hector MD Active AMLODIPINE BESYLATE 5 MG TABS 1 1/2 TABLET DAILY AMLODIPINE BESYLATE 14120021621 No Longer Active Nadir Hector MD Active LORTAB 5-500 MG TABS 1 BY MOUTH Q6H NEEDED HYDROCODONE- ACETAMINOPHEN 23301899323 No Longer Active Nadir Hector MD Active ACTOS 45 MG TABS 1 QD PIOGLITAZONE HCL 71415770231 No Longer Active Nadir Hector MD Active BACTRIM DS 800-160 MG TAB 1 tab by mouth twice daily TRIMETHOPRIM-SULFAMETHOXAZOLE 85808713581 No Longer Active Nadir Hector MD Active CALCIUM + D 600-200 MG-UNIT TABS 1 TABLET TWO TIMES A DAY CALCIUM CARBONATE-VITAMIN D 71321706549 Active Ro Yang RN Active METOPROLOL SUCCINATE 25 MG [id number] 1 QAM METOPROLOL SUCCINATE 41922151708 Active Nadir Hector MD Active AMARYL 4 MG TABS 1 QD GLIMEPIRIDE 14916400662 Active Nadir Hector MD Active LOVASTATIN 40 MG TABS 1 QD LOVASTATIN 41919185908 Active Nadir Hector MD Active GLUCOPHAGE 1000 MG TABS 1 TABLET TWO TIMES A DAY METFORMIN HCL 89085440624 Active Nadir Hector MD Active MAXZIDE-25 37.5-25 MG TABS 1 QD TRIAMTERENE-HCTZ 46257727135 Active Nadir Hector MD Active ACCUPRIL 40 MG TABS 1 QD QUINAPRIL HCL 38504193517 Active Nadir Hector MD Active BACTRIM DS 800-160 MG TAB 1 tab by mouth twice daily BACTRIM DS 800-160 MG TAB TRIMETHOPRIM-SULFAMETHOXAZOLE Inactive ACTOS 45 MG TABS 1 QD ACTOS 45 MG TABS 787425 PIOGLITAZONE HCL Inactive LORTAB 5-500 MG TABS 1 BY MOUTH Q6H NEEDED LORTAB 5-500 MG TABS HYDROCODONE-ACETAMINOPHEN Inactive AMLODIPINE BESYLATE 5 MG TABS 1 1/2 TABLET DAILY AMLODIPINE BESYLATE 5 MG TABS 577680 AMLODIPINE BESYLATE Inactive ONGLYZA 5 MG TABS 1 QAM ONGLYZA 5 MG TABS SAXAGLIPTIN HCL Inactive FLEXERIL 10 MG TABS 1/2 TO 1 TABLET Q12H NEEDED FLEXERIL 10 MG TABS CYCLOBENZAPRINE HCL Inactive CIPRO 250 MG TABS TAKE ONE TABLET BY MOUTH TWICE DAILY FOR 5 DAYS CIPRO 250 MG TABS 599769 CIPROFLOXACIN HCL Inactive BACTRIM DS 800-160 MG TABS TAKE ONE TABLET BY MOUTH TWICE DAILY FOR 7 DAYS BACTRIM DS 800-160 MG TABS SULFAMETHOXAZOLE-TRIMETHOPRIM Inactive BACTRIM DS 800-160 MG TABS one tablet twice a day for seven days BACTRIM DS 800-160 MG TABS SULFAMETHOXAZOLE-TRIMETHOPRIM Inactive MACROBID 100 MG CAP 1 cap by mouth twice daily MACROBID 100 MG CAP 307141 NITROFURANTOIN MONOHYD MACRO Inactive JANUVIA 100 MG TABS Take 1 tab daily JANUVIA 100 MG TABS SITAGLIPTIN PHOSPHATE Inactive MACRODANTIN 100 MG CAPS 1 capsule by mouth twice daily for seven days MACRODANTIN 100 MG CAPS 109159 NITROFURANTOIN MACROCRYSTAL Inactive AMOXICILLIN 500 MG CAPS 2 po BID x 10 days AMOXICILLIN 500 MG CAPS 031933 AMOXICILLIN Inactive Advance Directives Directive Description Start Date PERMISSION TO SHARE Immunizations Vaccine Administration Date Value Standard Description pneumococcal immunization administered Pneumovax 23 [CVX33] pneumococcal polysaccharide vaccine, 23 valent Seasonal influenza vaccine, injectable, containing preservative, for > 3 years old (Afluria, FluLaval, Fluzone, Fluvirin, Fluarix, Agriflu(>=18 yo)) Fluzone (>3 yrs.) [[id number]] Influenza, seasonal, injectable Vital Signs Date Name [...] Metabolic Panel, HGBA1C, Lipid Panel - Chemistry potassium, serum 4.3 mmol/L 3.5-5.2 chloride, serum 99 mmol/L 98-107 carbon dioxide, venous blood 28.4 mmol/L 21.0-32.0 blood glucose 131 mg/dL 65-110 calcium, serum 9.7 mg/dL 8.5-10.1 urea nitrogen, blood 19 mg/dL 7-18 creatinine, serum 0.80 mg/dL 0.60-1.30 hemoglobin A1C, blood, as % of total hemoglobin 7.0 % 4.3-6.0 cholesterol, serum 156 mg/dL 544-757 6409/01/09 triglyceride, serum, fasting 168 mg/dL 30-200 HDL cholesterol, serum 43 mg/dL 32-96 LDL cholesterol, serum 79 mg/dL 0-130 sodium, serum 137 mmol/L 136-145 Lab Report: CBC, Basic Metabolic Panel, HGBA1C, Lipid Panel - Hematology platelet count 316 10^3/MM^3 10*3/mm3 302-795 5774/01/09 red blood cell distribution width 13.3 % 11.6-14.8 mean corpuscular hemoglobin concentration, RBC 33.2 G/DL % 31.8- 35.4 mean corpuscular hemoglobin, RBC 31.8 pg 27.0-31.2 mean corpuscular volume, RBC 96 fL 80-97 hematocrit, blood 42.3 % 36.0-46.0 hemoglobin, blood 14.1 g/dL 12.0-16.0 erythrocyte (RBC) count 4.43 10^6/MM^3 10*6/mm3 4.04-5.48 leukocyte count, blood 8.4 10^3/MM^3 10*3/mm3 4.6-10.2 Lab Report: Comp. Metabolic Panel, HGBA1C - Chemistry sodium, serum 140 mmol/L 021-414 3049/07/23 bilirubin, serum, total 0.20 mg/dL 0.00-1.00 hemoglobin [...] U/L 50-136 calcium, serum 9.4 mg/dL 8.5-10.1 Lab Report: HGBA1C - Chemistry hemoglobin A1C, [...] No Encounters Code Encounter Date Provider Facility CPT-95252 Level 4 Est. Patient 14:21:01 MIXING MACHINE FEEDER Nadir Hector MD [facility] CPT-69646 Level 3 Est. Patient 16:41:34 CDT Nadir Hector MD [facility] CPT-14582 Level 4 Est. Patient 13:54:35 MIXING MACHINE FEEDER Nadir Hector MD [facility] CPT-92035 Level 3 Est. Patient 15:51:21 CDT Nadir Hector MD [facility] CPT-30156 Level 4 New Patient 15:58:26 CDT Catalino Irene MD [facility] CPT-13260 Level 4 Est. Patient 15:42:38 MIXING MACHINE FEEDER Nadir Hector MD [facility] Procedures Code Procedure Name Date Entry Date Standard Description CPT-40118 Bone Density 08:41:23 MIXING MACHINE FEEDER CPT-000 Give Appropriate Flu Vaccine 13:54:35 MIXING MACHINE FEEDER CPT-000 Give Pneumovax 13:54:35 MIXING MACHINE FEEDER CPT-68338 Administration 2+ single or combination vaccines inc oral 14:01:24 MIXING MACHINE FEEDER CPT-43332 Administration single or combination vaccine inc oral 14 :01:24 MIXING MACHINE FEEDER CPT-76200 Influenza High Dose age 65+ 14:01:24 MIXING MACHINE FEEDER CPT-31946 Pneumovax 14:01:24 MIXING MACHINE FEEDER CPT-11852 Venipuncture Draw Fee 10:36:48 CDT CPT-000 Give Appropriate Flu Vaccine 15:20:11 MIXING MACHINE FEEDER CPT-09415 Administration single or combination vaccine inc oral 15 :50:33 MIXING MACHINE FEEDER CPT-45866 Influenza High Dose age 65+ 15:50:33 MIXING MACHINE FEEDER CPT-79938 LS spine AP and Lat 15:30:05 MIXING MACHINE FEEDER CPT-63050 Hip comp min 2V 15:30:05 MIXING MACHINE FEEDER CPT-68979 Postop F/U Visit 17:28:18 CDT CPT-OV Office Visit 15:04:38 CDT CPT-37257 Bladder Scan 15:58:26 CDT CPT-71456 Cystoscopy 15:58:26 CDT CPT-OV Office Visit 16:15:09 CDT CPT-000 Give Appropriate Flu Vaccine 16:33:10 MIXING MACHINE FEEDER CPT-17641 Administration single or combination vaccine inc oral 19 :21:12 MIXING MACHINE FEEDER CPT-67557 Influenza split virus > age 3 19:21:12 MIXING MACHINE FEEDER
--- OUTSIDE RECORDS SUMMARY | 2017-11-11 07:43 | XMS REPORT | Clinical Summary ---
Author Author Admin, IMTIAZ Organization [facility] Address Unknown Phone Unavailable Allergies, Adverse [...] general medical examination at a [facility] facility PERIPHERAL NEUROPATHY 356.9 Active Nadir [...] lying down x 1 hour. ALENDRONATE SODIUM 20253969364 Active Nadir Hector MD Active AMOXICILLIN 500 MG CAPS 2 po BID x 10 days AMOXICILLIN 27029464595 No Longer Active Nadir Hector MD Active GLUCOTROL XL 5 MG [id number] one tablet daily GLIPIZIDE 76873852691 Active Nadir Hector MD Active JANUVIA 100 MG TABS 1 tablet by mouth daily SITAGLIPTIN PHOSPHATE 77073173236 No Longer Active Nadir Hector MD Active JANUVIA 100 MG TABS Take 1 tab daily SITAGLIPTIN PHOSPHATE 53783482158 No Longer Active Sharon Nuñez Active MACROBID 100 MG CAP 1 cap by mouth twice daily NITROFURANTOIN MONOHYD MACRO 07491671374 No Longer Active Crystal Fernández APRN Active MACRODANTIN 100 MG CAPS 1 capsule by mouth twice daily for seven days NITROFURANTOIN MACROCRYSTAL 77973834137 No Longer Active Ro Trey RN Active BACTRIM DS 800-160 MG TABS one tablet twice a day for seven days SULFAMETHOXAZOLE-TRIMETHOPRIM 59840331858 No Longer Active HEMANTH Griffin Active BACTRIM DS 800-160 MG TABS TAKE ONE TABLET BY MOUTH TWICE DAILY FOR 7 DAYS SULFAMETHOXAZOLE-TRIMETHOPRIM 77751571636 No Longer Active Viviana Lal RN Active CIPRO 250 MG TABS TAKE ONE TABLET BY MOUTH TWICE DAILY FOR 5 DAYS CIPROFLOXACIN HCL 88643449695 No Longer Active Viviana Lal RN Active FLEXERIL 10 MG TABS 1/2 TO 1 TABLET Q12H NEEDED CYCLOBENZAPRINE HCL 53605445330 No Longer Active Viviana Lal RN Active AMLODIPINE BESYLATE 5 MG TABS 1 1/2 daily AMLODIPINE BESYLATE 25716356887 Active Nadir Hector MD Active ONGLYZA 5 MG TABS 1 QAM SAXAGLIPTIN HCL 58422801627 No Longer Active Nadir Hector MD Active AMLODIPINE BESYLATE 5 MG TABS 1 1/2 TABLET DAILY AMLODIPINE BESYLATE 95803675575 No Longer Active Nadir Hector MD Active LORTAB 5-500 MG TABS 1 BY MOUTH Q6H NEEDED HYDROCODONE- ACETAMINOPHEN 18275226827 No Longer Active Nadir Hector MD Active ACTOS 45 MG TABS 1 QD PIOGLITAZONE HCL 50915997583 No Longer Active Nadir Hector MD Active BACTRIM DS 800-160 MG TAB 1 tab by mouth twice daily TRIMETHOPRIM-SULFAMETHOXAZOLE 55993802158 No Longer Active Nadir Hector MD Active CALCIUM + D 600-200 MG-UNIT TABS 1 TABLET TWO TIMES A DAY CALCIUM CARBONATE-VITAMIN D 07576017767 Active Ro Yang RN Active METOPROLOL SUCCINATE 25 MG [id number] 1 QAM METOPROLOL SUCCINATE 48974709471 Active Nadir Hector MD Active AMARYL 4 MG TABS 1 QD GLIMEPIRIDE 49596931174 Active Nadir Hector MD Active LOVASTATIN 40 MG TABS 1 QD LOVASTATIN 90991305486 Active Nadir Hector MD Active GLUCOPHAGE 1000 MG TABS 1 TABLET TWO TIMES A DAY METFORMIN HCL 87356555965 Active Nadir Hector MD Active MAXZIDE-25 37.5-25 MG TABS 1 QD TRIAMTERENE-HCTZ 81303490572 Active Nadir Hector MD Active ACCUPRIL 40 MG TABS 1 QD QUINAPRIL HCL 09979299556 Active Nadir Hector MD Active BACTRIM DS 800-160 MG TAB 1 tab by mouth twice daily BACTRIM DS 800-160 MG TAB TRIMETHOPRIM-SULFAMETHOXAZOLE Inactive ACTOS 45 MG TABS 1 QD ACTOS 45 MG TABS 810499 PIOGLITAZONE HCL Inactive LORTAB 5-500 MG TABS 1 BY MOUTH Q6H NEEDED LORTAB 5-500 MG TABS HYDROCODONE-ACETAMINOPHEN Inactive AMLODIPINE BESYLATE 5 MG TABS 1 1/2 TABLET DAILY AMLODIPINE BESYLATE 5 MG TABS 456559 AMLODIPINE BESYLATE Inactive ONGLYZA 5 MG TABS 1 QAM ONGLYZA 5 MG TABS SAXAGLIPTIN HCL Inactive FLEXERIL 10 MG TABS 1/2 TO 1 TABLET Q12H NEEDED FLEXERIL 10 MG TABS CYCLOBENZAPRINE HCL Inactive CIPRO 250 MG TABS TAKE ONE TABLET BY MOUTH TWICE DAILY FOR 5 DAYS CIPRO 250 MG TABS 333476 CIPROFLOXACIN HCL Inactive BACTRIM DS 800-160 MG TABS TAKE ONE TABLET BY MOUTH TWICE DAILY FOR 7 DAYS BACTRIM DS 800-160 MG TABS SULFAMETHOXAZOLE-TRIMETHOPRIM Inactive BACTRIM DS 800-160 MG TABS one tablet twice a day for seven days BACTRIM DS 800-160 MG TABS SULFAMETHOXAZOLE-TRIMETHOPRIM Inactive MACROBID 100 MG CAP 1 cap by mouth twice daily MACROBID 100 MG CAP 975831 NITROFURANTOIN MONOHYD MACRO Inactive JANUVIA 100 MG TABS Take 1 tab daily JANUVIA 100 MG TABS SITAGLIPTIN PHOSPHATE Inactive MACRODANTIN 100 MG CAPS 1 capsule by mouth twice daily for seven days MACRODANTIN 100 MG CAPS 429821 NITROFURANTOIN MACROCRYSTAL Inactive AMOXICILLIN 500 MG CAPS 2 po BID x 10 days AMOXICILLIN 500 MG CAPS 579242 AMOXICILLIN Inactive Advance Directives Directive Description Start Date PERMISSION TO SHARE Immunizations Vaccine Administration Date Value Standard Description pneumococcal immunization administered Pneumovax 23 [CVX33] pneumococcal polysaccharide vaccine, 23 valent Seasonal influenza vaccine, injectable, containing preservative, for > 3 years old (Afluria, FluLaval, Fluzone, Fluvirin, Fluarix, Agriflu(>=18 yo)) Fluzone (>3 yrs.) [[id number]] Influenza, seasonal, injectable Vital Signs Date Name [...] Panel - Chemistry sodium, serum 137 mmol/L 698-965 1538/01/09 potassium, serum 4.3 mmol/L 3.5-5.2 chloride, serum 99 mmol/L 98-107 carbon dioxide, venous blood 28.4 mmol/L 21.0-32.0 blood glucose 131 mg/dL 65-110 calcium, serum 9.7 mg/dL 8.5-10.1 urea nitrogen, blood 19 mg/dL 7-18 creatinine, serum 0.80 mg/dL 0.60-1.30 hemoglobin A1C, blood, as % of total hemoglobin 7.0 % 4.3-6.0 cholesterol, serum 156 mg/dL 140-238 9187/01/09 triglyceride, serum, fasting 168 mg/dL 30-200 HDL [...] HGBA1C - Chemistry sodium, serum 140 mmol/L 731-225 4130/07/23 potassium, serum 4.5 mmol/L 3.5-5.2 chloride, serum [...] No Encounters Code Encounter Date Provider Facility CPT-15466 Level 4 Est. Patient 14:21:01 SOLE PAINTER Nadir Hector MD [facility] CPT-35072 Level 3 Est. Patient 16:41:34 CDT Nadir Hector MD [facility] CPT-98171 Level 4 Est. Patient 13:54:35 SOLE PAINTER Nadir Hector MD [facility] CPT-03766 Level 3 Est. Patient 15:51:21 CDT Nadir Hector MD [facility] CPT-72237 Level 4 New Patient 15:58:26 CDT Catalino Irene MD [facility] CPT-84295 Level 4 Est. Patient 15:42:38 SOLE PAINTER Nadir Hector MD [facility] Procedures Code Procedure Name Date Entry Date Standard Description CPT-12566 Bone Density 08:41:23 SOLE PAINTER CPT-000 Give Appropriate Flu Vaccine 13:54:35 SOLE PAINTER CPT-000 Give Pneumovax 13:54:35 SOLE PAINTER CPT-88731 Administration 2+ single or combination vaccines inc oral 14:01:24 SOLE PAINTER CPT-70111 Administration single or combination vaccine inc oral 14 :01:24 SOLE PAINTER CPT-19008 Influenza High Dose age 65+ 14:01:24 SOLE PAINTER CPT-95499 Pneumovax 14:01:24 SOLE PAINTER CPT-46315 Venipuncture Draw Fee 10:36:48 CDT CPT-000 Give Appropriate Flu Vaccine 15:20:11 SOLE PAINTER CPT-57381 Administration single or combination vaccine inc oral 15 :50:33 SOLE PAINTER CPT-48713 Influenza High Dose age 65+ 15:50:33 SOLE PAINTER CPT-13312 LS spine AP and Lat 15:30:05 SOLE PAINTER CPT-56265 Hip comp min 2V 15:30:05 SOLE PAINTER CPT-09475 Postop F/U Visit 17:28:18 CDT CPT-OV Office Visit 15:04:38 CDT CPT-99472 Bladder Scan 15:58:26 CDT CPT-59998 Cystoscopy 15:58:26 CDT CPT-OV Office Visit 16:15:09 CDT CPT-000 Give Appropriate Flu Vaccine 16:33:10 SOLE PAINTER CPT-25882 Administration single or combination vaccine inc oral 19 :21:12 SOLE PAINTER CPT-44163 Influenza split virus > age 3 19:21:12 SOLE PAINTER
--- OUTSIDE RECORDS SUMMARY | 2017-11-11 07:43 | XMS REPORT | Clinical Summary ---
Author Author Admin, IMTIAZ Organization [facility] Address Unknown Phone Unavailable Allergies, Adverse [...] lying down x 1 hour. ALENDRONATE SODIUM 02078352591 Active Nadir Hector MD Active AMOXICILLIN 500 MG CAPS 2 po BID x 10 days AMOXICILLIN 06500608753 No Longer Active Nadir Hector MD Active GLUCOTROL XL 5 MG [id number] one tablet daily GLIPIZIDE 00520744050 Active Nadir Hector MD Active JANUVIA 100 MG TABS 1 tablet by mouth daily SITAGLIPTIN PHOSPHATE 13185301942 No Longer Active Nadir Hector MD Active JANUVIA 100 MG TABS Take 1 tab daily SITAGLIPTIN PHOSPHATE 32382520577 No Longer Active Sharon Nuñez Active MACROBID 100 MG CAP 1 cap by mouth twice daily NITROFURANTOIN MONOHYD MACRO 56840495757 No Longer Active Crystal Fernández APRN Active MACRODANTIN 100 MG CAPS 1 capsule by mouth twice daily for seven days NITROFURANTOIN MACROCRYSTAL 46783506637 No Longer Active Ro Trey RN Active BACTRIM DS 800-160 MG TABS one tablet twice a day for seven days SULFAMETHOXAZOLE-TRIMETHOPRIM 73540784977 No Longer Active HEMANTH Griffin Active BACTRIM DS 800-160 MG TABS TAKE ONE TABLET BY MOUTH TWICE DAILY FOR 7 DAYS SULFAMETHOXAZOLE-TRIMETHOPRIM 57034536303 No Longer Active Viviana Lal RN Active CIPRO 250 MG TABS TAKE ONE TABLET BY MOUTH TWICE DAILY FOR 5 DAYS CIPROFLOXACIN HCL 70164809614 No Longer Active Viviana Lal RN Active FLEXERIL 10 MG TABS 1/2 TO 1 TABLET Q12H NEEDED CYCLOBENZAPRINE HCL 22810390467 No Longer Active Viviana Lal RN Active AMLODIPINE BESYLATE 5 MG TABS 1 1/2 daily AMLODIPINE BESYLATE 20972429529 Active Nadir Hector MD Active ONGLYZA 5 MG TABS 1 QAM SAXAGLIPTIN HCL 48014548953 No Longer Active Nadir Hector MD Active AMLODIPINE BESYLATE 5 MG TABS 1 1/2 TABLET DAILY AMLODIPINE BESYLATE 99930623747 No Longer Active Nadir Hector MD Active LORTAB 5-500 MG TABS 1 BY MOUTH Q6H NEEDED HYDROCODONE- ACETAMINOPHEN 55373380311 No Longer Active Nadir Hector MD Active ACTOS 45 MG TABS 1 QD PIOGLITAZONE HCL 59686139447 No Longer Active Nadir Hector MD Active BACTRIM DS 800-160 MG TAB 1 tab by mouth twice daily TRIMETHOPRIM-SULFAMETHOXAZOLE 85092181334 No Longer Active Nadir Hector MD Active CALCIUM + D 600-200 MG-UNIT TABS 1 TABLET TWO TIMES A DAY CALCIUM CARBONATE-VITAMIN D 29620561704 Active Ro Yang RN Active METOPROLOL SUCCINATE 25 MG [id number] 1 QAM METOPROLOL SUCCINATE 74095176876 Active Nadir Hector MD Active AMARYL 4 MG TABS 1 QD GLIMEPIRIDE 91227000604 Active Nadir Hector MD Active LOVASTATIN 40 MG TABS 1 QD LOVASTATIN 55362387595 Active Nadir Hector MD Active GLUCOPHAGE 1000 MG TABS 1 TABLET TWO TIMES A DAY METFORMIN HCL 38718976949 Active Nadir Hector MD Active MAXZIDE-25 37.5-25 MG TABS 1 QD TRIAMTERENE-HCTZ 93242937177 Active Nadir Hector MD Active ACCUPRIL 40 MG TABS 1 QD QUINAPRIL HCL 35901252133 Active Nadir Hector MD Active BACTRIM DS 800-160 MG TAB 1 tab by mouth twice daily BACTRIM DS 800-160 MG TAB TRIMETHOPRIM-SULFAMETHOXAZOLE Inactive ACTOS 45 MG TABS 1 QD ACTOS 45 MG TABS 684716 PIOGLITAZONE HCL Inactive LORTAB 5-500 MG TABS 1 BY MOUTH Q6H NEEDED LORTAB 5-500 MG TABS HYDROCODONE-ACETAMINOPHEN Inactive AMLODIPINE BESYLATE 5 MG TABS 1 1/2 TABLET DAILY AMLODIPINE BESYLATE 5 MG TABS 533297 AMLODIPINE BESYLATE Inactive ONGLYZA 5 MG TABS 1 QAM ONGLYZA 5 MG TABS SAXAGLIPTIN HCL Inactive FLEXERIL 10 MG TABS 1/2 TO 1 TABLET Q12H NEEDED FLEXERIL 10 MG TABS CYCLOBENZAPRINE HCL Inactive CIPRO 250 MG TABS TAKE ONE TABLET BY MOUTH TWICE DAILY FOR 5 DAYS CIPRO 250 MG TABS 507905 CIPROFLOXACIN HCL Inactive BACTRIM DS 800-160 MG TABS TAKE ONE TABLET BY MOUTH TWICE DAILY FOR 7 DAYS BACTRIM DS 800-160 MG TABS SULFAMETHOXAZOLE-TRIMETHOPRIM Inactive BACTRIM DS 800-160 MG TABS one tablet twice a day for seven days BACTRIM DS 800-160 MG TABS SULFAMETHOXAZOLE-TRIMETHOPRIM Inactive MACROBID 100 MG CAP 1 cap by mouth twice daily MACROBID 100 MG CAP 573484 NITROFURANTOIN MONOHYD MACRO Inactive JANUVIA 100 MG TABS Take 1 tab daily JANUVIA 100 MG TABS SITAGLIPTIN PHOSPHATE Inactive MACRODANTIN 100 MG CAPS 1 capsule by mouth twice daily for seven days MACRODANTIN 100 MG CAPS 219223 NITROFURANTOIN MACROCRYSTAL Inactive AMOXICILLIN 500 MG CAPS 2 po BID x 10 days AMOXICILLIN 500 MG CAPS 719157 AMOXICILLIN Inactive Advance Directives Directive Description Start Date PERMISSION TO SHARE Immunizations Vaccine Administration Date Value Standard Description pneumococcal immunization administered Pneumovax 23 [CVX33] pneumococcal polysaccharide vaccine, 23 valent Seasonal influenza vaccine, injectable, containing preservative, for > 3 years old (Afluria, FluLaval, Fluzone, Fluvirin, Fluarix, Agriflu(>=18 yo)) Fluzone (>3 yrs.) [[id number]] Influenza, seasonal, injectable Vital Signs Date Name [...] Panel - Chemistry sodium, serum 137 mmol/L 499-309 1434/01/09 potassium, serum 4.3 mmol/L 3.5-5.2 chloride, serum 99 mmol/L 98-107 carbon dioxide, venous blood 28.4 mmol/L 21.0-32.0 blood glucose 131 mg/dL 65-110 calcium, serum 9.7 mg/dL 8.5-10.1 urea nitrogen, blood 19 mg/dL 7-18 creatinine, serum 0.80 mg/dL 0.60-1.30 hemoglobin A1C, blood, as % of total hemoglobin 7.0 % 4.3-6.0 cholesterol, serum 156 mg/dL 299-293 6852/01/09 triglyceride, serum, fasting 168 mg/dL 30-200 HDL cholesterol, serum 43 mg/dL 32-96 LDL cholesterol, serum 79 mg/dL 0-130 Lab Report: CBC, Basic Metabolic Panel, HGBA1C, Lipid Panel - Hematology mean corpuscular volume, RBC 96 fL 80-97 hematocrit, blood 42.3 % 36.0-46.0 hemoglobin, blood 14.1 g/dL 12.0-16.0 erythrocyte (RBC) count 4.43 10^6/MM^3 10*6/mm3 4.04-5.48 leukocyte count, blood 8.4 10^3/MM^3 10*3/mm3 4.6-10.2 mean corpuscular hemoglobin, RBC 31.8 pg 27.0-31.2 mean corpuscular hemoglobin concentration, RBC 33.2 G/DL % 31.8- 35.4 red blood cell distribution width 13.3 % 11.6-14.8 platelet count 316 10^3/MM^3 10*3/mm3 142-424 Lab Report: Comp. Metabolic Panel, HGBA1C - Chemistry potassium, serum 4.5 mmol/L 3.5-5.2 chloride, serum 104 mmol/L 98-107 carbon dioxide, venous blood 30.0 mmol/L 21.0-32.0 blood glucose 151 mg/dL 65-110 urea nitrogen, blood 19 mg/dL 7-18 sodium, serum 140 mmol/L 152-247 7357/07/23 creatinine, serum 0.80 mg/dL 0.60-1.30 alanine aminotransferase [...] mg/dL Encounters Code Encounter Date Provider Facility CPT-47424 Level 4 Est. Patient 14:21:01 BOTTLING EQUIPMENT SALES REPRESENTATIVE Nadir Hector MD [facility] CPT-20776 Level 3 Est. Patient 16:41:34 CDT Nadir Hector MD [facility] CPT-32951 Level 4 Est. Patient 13:54:35 BOTTLING EQUIPMENT SALES REPRESENTATIVE Nadir Hector MD [facility] CPT-30791 Level 3 Est. Patient 15:51:21 CDT Nadir Hector MD [facility] CPT-54944 Level 4 New Patient 15:58:26 CDT Catalino Irene MD [facility] CPT-10022 Level 4 Est. Patient 15:42:38 BOTTLING EQUIPMENT SALES REPRESENTATIVE Nadir Hector MD [facility] Procedures Code Procedure Name Date Entry Date Standard Description CPT-67709 Bone Density 08:41:23 BOTTLING EQUIPMENT SALES REPRESENTATIVE CPT-000 Give Appropriate Flu Vaccine 13:54:35 BOTTLING EQUIPMENT SALES REPRESENTATIVE CPT-000 Give Pneumovax 13:54:35 BOTTLING EQUIPMENT SALES REPRESENTATIVE CPT-73763 Administration 2+ single or combination vaccines inc oral 14:01:24 BOTTLING EQUIPMENT SALES REPRESENTATIVE CPT-04245 Administration single or combination vaccine inc oral 14 :01:24 BOTTLING EQUIPMENT SALES REPRESENTATIVE CPT-67185 Influenza High Dose age 65+ 14:01:24 BOTTLING EQUIPMENT SALES REPRESENTATIVE CPT-66685 Pneumovax 14:01:24 BOTTLING EQUIPMENT SALES REPRESENTATIVE CPT-04058 Venipuncture Draw Fee 10:36:48 CDT CPT-000 Give Appropriate Flu Vaccine 15:20:11 BOTTLING EQUIPMENT SALES REPRESENTATIVE CPT-51794 Administration single or combination vaccine inc oral 15 :50:33 BOTTLING EQUIPMENT SALES REPRESENTATIVE CPT-76067 Influenza High Dose age 65+ 15:50:33 BOTTLING EQUIPMENT SALES REPRESENTATIVE CPT-59627 LS spine AP and Lat 15:30:05 BOTTLING EQUIPMENT SALES REPRESENTATIVE CPT-50500 Hip comp min 2V 15:30:05 BOTTLING EQUIPMENT SALES REPRESENTATIVE CPT-99324 Postop F/U Visit 17:28:18 CDT CPT-OV Office Visit 15:04:38 CDT CPT-36245 Bladder Scan 15:58:26 CDT CPT-72982 Cystoscopy 15:58:26 CDT CPT-OV Office Visit 16:15:09 CDT CPT-000 Give Appropriate Flu Vaccine 16:33:10 BOTTLING EQUIPMENT SALES REPRESENTATIVE CPT-01803 Administration single or combination vaccine inc oral 19 :21:12 BOTTLING EQUIPMENT SALES REPRESENTATIVE CPT-99302 Influenza split virus > age 3 19:21:12 BOTTLING EQUIPMENT SALES REPRESENTATIVE
--- OUTSIDE RECORDS SUMMARY | 2017-11-11 07:44 | XMS REPORT | Clinical Summary ---
[...] MD Routine general medical examination at a [facility] care facility PERIPHERAL NEUROPATHY 356.9 [...] lying down x 1 hour. ALENDRONATE SODIUM 53941538060 Active Nadir Hector MD Active AMOXICILLIN 500 MG CAPS 2 po BID x 10 days AMOXICILLIN 39321069891 No Longer Active Nadir Hector MD Active GLUCOTROL XL 5 MG [id number] one tablet daily GLIPIZIDE 00177692775 Active Nadir Hector MD Active JANUVIA 100 MG TABS 1 tablet by mouth daily SITAGLIPTIN PHOSPHATE 87322882997 No Longer Active Nadir Hector MD Active JANUVIA 100 MG TABS Take 1 tab daily SITAGLIPTIN PHOSPHATE 19041566609 No Longer Active Sharon Nuñez Active MACROBID 100 MG CAP 1 cap by mouth twice daily NITROFURANTOIN MONOHYD MACRO 29958957964 No Longer Active Crystal Fernández APRN Active MACRODANTIN 100 MG CAPS 1 capsule by mouth twice daily for seven days NITROFURANTOIN MACROCRYSTAL 54745237851 No Longer Active Ro Trey RN Active BACTRIM DS 800-160 MG TABS one tablet twice a day for seven days SULFAMETHOXAZOLE-TRIMETHOPRIM 00992847852 No Longer Active HEMANTH Griffin Active BACTRIM DS 800-160 MG TABS TAKE ONE TABLET BY MOUTH TWICE DAILY FOR 7 DAYS SULFAMETHOXAZOLE-TRIMETHOPRIM 41088652330 No Longer Active Viviana Lal RN Active CIPRO 250 MG TABS TAKE ONE TABLET BY MOUTH TWICE DAILY FOR 5 DAYS CIPROFLOXACIN HCL 94555012734 No Longer Active Viviana Lal RN Active FLEXERIL 10 MG TABS 1/2 TO 1 TABLET Q12H NEEDED CYCLOBENZAPRINE HCL 74681202885 No Longer Active Viviana Lal RN Active AMLODIPINE BESYLATE 5 MG TABS 1 1/2 daily AMLODIPINE BESYLATE 70361959746 Active Nadir Hector MD Active ONGLYZA 5 MG TABS 1 QAM SAXAGLIPTIN HCL 67451407463 No Longer Active Nadir Hector MD Active AMLODIPINE BESYLATE 5 MG TABS 1 1/2 TABLET DAILY AMLODIPINE BESYLATE 59850512788 No Longer Active Nadir Hector MD Active LORTAB 5-500 MG TABS 1 BY MOUTH Q6H NEEDED HYDROCODONE- ACETAMINOPHEN 06613837400 No Longer Active Nadir Hector MD Active ACTOS 45 MG TABS 1 QD PIOGLITAZONE HCL 91041862418 No Longer Active Nadir Hector MD Active BACTRIM DS 800-160 MG TAB 1 tab by mouth twice daily TRIMETHOPRIM-SULFAMETHOXAZOLE 16686820525 No Longer Active Nadir Hector MD Active CALCIUM + D 600-200 MG-UNIT TABS 1 TABLET TWO TIMES A DAY CALCIUM CARBONATE-VITAMIN D 53910284453 Active Ro Yang RN Active METOPROLOL SUCCINATE 25 MG [id number] 1 QAM METOPROLOL SUCCINATE 63256612410 Active Nadir Hector MD Active AMARYL 4 MG TABS 1 QD GLIMEPIRIDE 38444710098 Active Nadir Hector MD Active LOVASTATIN 40 MG TABS 1 QD LOVASTATIN 31302503620 Active Nadir Hector MD Active GLUCOPHAGE 1000 MG TABS 1 TABLET TWO TIMES A DAY METFORMIN HCL 76093726866 Active Nadir Hector MD Active MAXZIDE-25 37.5-25 MG TABS 1 QD TRIAMTERENE-HCTZ 38958762487 Active Nadir Hector MD Active ACCUPRIL 40 MG TABS 1 QD QUINAPRIL HCL 97331570976 Active Nadir Hector MD Active BACTRIM DS 800-160 MG TAB 1 tab by mouth twice daily BACTRIM DS 800-160 MG TAB TRIMETHOPRIM-SULFAMETHOXAZOLE Inactive ACTOS 45 MG TABS 1 QD ACTOS 45 MG TABS 001596 PIOGLITAZONE HCL Inactive LORTAB 5-500 MG TABS 1 BY MOUTH Q6H NEEDED LORTAB 5-500 MG TABS HYDROCODONE-ACETAMINOPHEN Inactive AMLODIPINE BESYLATE 5 MG TABS 1 1/2 TABLET DAILY AMLODIPINE BESYLATE 5 MG TABS 529471 AMLODIPINE BESYLATE Inactive ONGLYZA 5 MG TABS 1 QAM ONGLYZA 5 MG TABS SAXAGLIPTIN HCL Inactive FLEXERIL 10 MG TABS 1/2 TO 1 TABLET Q12H NEEDED FLEXERIL 10 MG TABS CYCLOBENZAPRINE HCL Inactive CIPRO 250 MG TABS TAKE ONE TABLET BY MOUTH TWICE DAILY FOR 5 DAYS CIPRO 250 MG TABS 300351 CIPROFLOXACIN HCL Inactive BACTRIM DS 800-160 MG TABS TAKE ONE TABLET BY MOUTH TWICE DAILY FOR 7 DAYS BACTRIM DS 800-160 MG TABS SULFAMETHOXAZOLE-TRIMETHOPRIM Inactive BACTRIM DS 800-160 MG TABS one tablet twice a day for seven days BACTRIM DS 800-160 MG TABS SULFAMETHOXAZOLE-TRIMETHOPRIM Inactive MACROBID 100 MG CAP 1 cap by mouth twice daily MACROBID 100 MG CAP 704175 NITROFURANTOIN MONOHYD MACRO Inactive JANUVIA 100 MG TABS Take 1 tab daily JANUVIA 100 MG TABS SITAGLIPTIN PHOSPHATE Inactive MACRODANTIN 100 MG CAPS 1 capsule by mouth twice daily for seven days MACRODANTIN 100 MG CAPS 175041 NITROFURANTOIN MACROCRYSTAL Inactive AMOXICILLIN 500 MG CAPS 2 po BID x 10 days AMOXICILLIN 500 MG CAPS 093755 AMOXICILLIN Inactive Advance Directives Directive Description Start Date PERMISSION TO SHARE Immunizations Vaccine Administration Date Value Standard Description pneumococcal immunization administered Pneumovax 23 [CVX33] pneumococcal polysaccharide vaccine, 23 valent Seasonal influenza vaccine, injectable, containing preservative, for > 3 years old (Afluria, FluLaval, Fluzone, Fluvirin, Fluarix, Agriflu(>=18 yo)) Fluzone (>3 yrs.) [[id number]] Influenza, seasonal, injectable Vital Signs Date Name [...] 7.0 % 4.3-6.0 cholesterol, serum 156 mg/dL 731-443 7086/01/09 triglyceride, serum, fasting 168 mg/dL 30-200 HDL cholesterol, serum 43 mg/dL 32-96 LDL cholesterol, serum 79 mg/dL 0-130 sodium, serum 137 mmol/L 136-145 Lab Report: CBC, Basic Metabolic Panel, HGBA1C, Lipid Panel - Hematology hematocrit, blood 42.3 % 36.0-46.0 hemoglobin, blood 14.1 g/dL 12.0-16.0 erythrocyte (RBC) count 4.43 10^6/MM^3 10*6/mm3 4.04-5.48 leukocyte count, blood 8.4 10^3/MM^3 10*3/mm3 4.6-10.2 platelet count 316 10^3/MM^3 10*3/mm3 504-972 9012/01/09 red blood cell distribution width 13.3 % 11.6-14.8 mean corpuscular hemoglobin concentration, RBC 33.2 G/DL % 31.8- 35.4 mean corpuscular hemoglobin, RBC 31.8 pg 27.0-31.2 mean corpuscular volume, RBC 96 fL 80-97 Lab Report: Comp. Metabolic Panel, HGBA1C - Chemistry sodium, serum 140 mmol/L 606-427 9726/07/23 potassium, serum 4.5 mmol/L 3.5-5.2 chloride, serum [...] No Encounters Code Encounter Date Provider Facility CPT-76235 Level 4 Est. Patient 14:21:01 APPRENTICE LINEMAN THIRD STEP Nadir Hector MD [facility] CPT-56614 Level 3 Est. Patient 16:41:34 CDT Nadir Hector MD [facility] CPT-98120 Level 4 Est. Patient 13:54:35 APPRENTICE [employer]EP Nadir Hector MD [facility] CPT-94830 Level 3 Est. Patient 15:51:21 CDT Nadir Hector MD [facility] CPT-03311 Level 4 New Patient 15:58:26 CDT Catalino Irene MD [facility] CPT-12950 Level 4 Est. Patient 15:42:38 APPRENTICE [employer]EM[employer]IRD STEP Nadir Hector MD [facility] Procedures Code Procedure Name Date Entry Date Standard Description CPT-20058 Bone Density 08:41:23 APPRENTICE [facility]EP CPT-000 Give Appropriate Flu Vaccine 13:54:35 APPRENTICE [employer]EP CPT-000 Give Pneumovax 13:54:35 APPRENTICE [employer] CPT-70042 Administration 2+ single or combination vaccines inc oral 14:01:24 APPRENTICE [facility] [employer] CPT-87793 Administration single or combination vaccine inc oral 14 :01:24 APPRENTICE [employer]EP CPT-96936 Influenza High Dose age 65+ 14:01:24 APPRENTICE [facility] [employer]EP CPT-45299 Pneumovax 14:01:24 APPRENTICE [facility]EP CPT-62183 Venipuncture Draw Fee 10:36:48 CDT CPT-000 Give Appropriate Flu Vaccine 15:20:11 APPRENTICE [employer]EP CPT-28358 Administration single or combination vaccine inc oral 15 :50:33 APPRENTICE [employer]IRD [employer]EP CPT-28764 Influenza High Dose age 65+ 15:50:33 APPRENTICE [facility] [employer]EP CPT-28487 LS spine AP and Lat 15:30:05 APPRENTICE [employer]EP CPT-44147 Hip comp min 2V 15:30:05 APPRENTICE [employer]EP CPT-30378 Postop F/U Visit 17:28:18 CDT CPT-OV Office Visit 15:04:38 CDT CPT-72491 Bladder Scan 15:58:26 CDT CPT-87594 Cystoscopy 15:58:26 CDT CPT-OV Office Visit 16:15:09 CDT CPT-000 Give Appropriate Flu Vaccine 16:33:10 APPRENTICE [facility]IRD [employer]EP CPT-24369 Administration single or combination vaccine inc oral 19 :21:12 APPRENTICE [facility]EM[employer] THIRD STEP CPT-91740 Influenza split virus > age 3 19:21:12 APPRENTICE LINEM[employer] THIRD STEP
--- OUTSIDE RECORDS SUMMARY | 2017-11-11 07:45 | XMS REPORT | Clinical Summary ---
[...] Routine general medical examination at a [facility] care facility PERIPHERAL NEUROPATHY 356.9 Active [...] 2 po BID x 10 days AMOXICILLIN 18290563772 No Longer Active Nadir Hector MD Active GLUCOTROL XL 5 MG [id number] one tablet daily GLIPIZIDE 45436037567 Active Nadir Hector MD Active JANUVIA 100 MG TABS 1 tablet by mouth daily SITAGLIPTIN PHOSPHATE 25991318739 No Longer Active Nadir Hector MD Active JANUVIA 100 MG TABS Take 1 tab daily SITAGLIPTIN PHOSPHATE 05215718606 No Longer Active Sharon Nuñez Active MACROBID 100 MG CAP 1 cap by mouth twice daily NITROFURANTOIN MONOHYD MACRO 41661436468 No Longer Active Crystal Fernández APRN Active MACRODANTIN 100 MG CAPS 1 capsule by mouth twice daily for seven days NITROFURANTOIN MACROCRYSTAL 76790615976 No Longer Active Ro Yang RN Active BACTRIM DS 800-160 MG TABS one tablet twice a day for seven days SULFAMETHOXAZOLE-TRIMETHOPRIM 36357628560 No Longer Active HEMANTH Griffin Active BACTRIM DS 800-160 MG TABS TAKE ONE TABLET BY MOUTH TWICE DAILY FOR 7 DAYS SULFAMETHOXAZOLE-TRIMETHOPRIM 97703418090 No Longer Active Viviana Lal RN Active CIPRO 250 MG TABS TAKE ONE TABLET BY MOUTH TWICE DAILY FOR 5 DAYS CIPROFLOXACIN HCL 19923512178 No Longer Active Viviana Lal RN Active FLEXERIL 10 MG TABS 1/2 TO 1 TABLET Q12H NEEDED CYCLOBENZAPRINE HCL 88215115296 No Longer Active Viviana Lal RN Active AMLODIPINE BESYLATE 5 MG TABS 1 1/2 daily AMLODIPINE BESYLATE 11124714188 Active Nadir Hector MD Active ONGLYZA 5 MG TABS 1 QAM SAXAGLIPTIN HCL 32160055188 No Longer Active Nadir Hector MD Active AMLODIPINE BESYLATE 5 MG TABS 1 1/2 TABLET DAILY AMLODIPINE BESYLATE 19174983955 No Longer Active Nadir Hector MD Active LORTAB 5-500 MG TABS 1 BY MOUTH Q6H NEEDED HYDROCODONE- ACETAMINOPHEN 43508595349 No Longer Active Nadir Hector MD Active ACTOS 45 MG TABS 1 QD PIOGLITAZONE HCL 80970813944 No Longer Active Nadir Hector MD Active BACTRIM DS 800-160 MG TAB 1 tab by mouth twice daily TRIMETHOPRIM-SULFAMETHOXAZOLE 29155095874 No Longer Active Nadir Hector MD Active CALCIUM + D 600-200 MG-UNIT TABS 1 TABLET TWO TIMES A DAY CALCIUM CARBONATE-VITAMIN D 24112272230 Active Ro Yang RN Active METOPROLOL SUCCINATE 25 MG [id number] 1 QAM METOPROLOL SUCCINATE 91450590134 Active Nadir Hector MD Active AMARYL 4 MG TABS 1 QD GLIMEPIRIDE 25908610852 Active Nadir Hector MD Active LOVASTATIN 40 MG TABS 1 QD LOVASTATIN 61893176088 Active Nadir Hector MD Active GLUCOPHAGE 1000 MG TABS 1 TABLET TWO TIMES A DAY METFORMIN HCL 13704245873 Active Nadir Hector MD Active MAXZIDE-25 37.5-25 MG TABS 1 QD TRIAMTERENE-HCTZ 21178768277 Active Nadir Hector MD Active ACCUPRIL 40 MG TABS 1 QD QUINAPRIL HCL 28177353661 Active Nadir Hector MD Active BACTRIM DS 800-160 MG TAB 1 tab by mouth twice daily BACTRIM DS 800-160 MG TAB TRIMETHOPRIM-SULFAMETHOXAZOLE Inactive ACTOS 45 MG TABS 1 QD ACTOS 45 MG TABS 898797 PIOGLITAZONE HCL Inactive LORTAB 5-500 MG TABS 1 BY MOUTH Q6H NEEDED LORTAB 5-500 MG TABS HYDROCODONE-ACETAMINOPHEN Inactive AMLODIPINE BESYLATE 5 MG TABS 1 1/2 TABLET DAILY AMLODIPINE BESYLATE 5 MG TABS 845358 AMLODIPINE BESYLATE Inactive ONGLYZA 5 MG TABS 1 QAM ONGLYZA 5 MG TABS SAXAGLIPTIN HCL Inactive FLEXERIL 10 MG TABS 1/2 TO 1 TABLET Q12H NEEDED FLEXERIL 10 MG TABS CYCLOBENZAPRINE HCL Inactive CIPRO 250 MG TABS TAKE ONE TABLET BY MOUTH TWICE DAILY FOR 5 DAYS CIPRO 250 MG TABS 015373 CIPROFLOXACIN HCL Inactive BACTRIM DS 800-160 MG TABS TAKE ONE TABLET BY MOUTH TWICE DAILY FOR 7 DAYS BACTRIM DS 800-160 MG TABS SULFAMETHOXAZOLE-TRIMETHOPRIM Inactive BACTRIM DS 800-160 MG TABS one tablet twice a day for seven days BACTRIM DS 800-160 MG TABS SULFAMETHOXAZOLE-TRIMETHOPRIM Inactive MACROBID 100 MG CAP 1 cap by mouth twice daily MACROBID 100 MG CAP 170662 NITROFURANTOIN MONOHYD MACRO Inactive JANUVIA 100 MG TABS Take 1 tab daily JANUVIA 100 MG TABS SITAGLIPTIN PHOSPHATE Inactive MACRODANTIN 100 MG CAPS 1 capsule by mouth twice daily for seven days MACRODANTIN 100 MG CAPS 747031 NITROFURANTOIN MACROCRYSTAL Inactive AMOXICILLIN 500 MG CAPS 2 po BID x 10 days AMOXICILLIN 500 MG CAPS 463063 AMOXICILLIN Inactive Advance Directives Directive Description Start Date PERMISSION TO SHARE Immunizations Vaccine Administration Date Value Standard Description pneumococcal immunization administered Pneumovax 23 [CVX33] pneumococcal polysaccharide vaccine, 23 valent Seasonal influenza vaccine, injectable, containing preservative, for > 3 years old (Afluria, FluLaval, Fluzone, Fluvirin, Fluarix, Agriflu(>=18 yo)) Fluzone (>3 yrs.) [[id number]] Influenza, seasonal, injectable Vital Signs Date Name [...] Panel - Chemistry sodium, serum 137 mmol/L 859-995 5462/01/09 potassium, serum 4.3 mmol/L 3.5-5.2 chloride, serum 99 mmol/L 98-107 carbon dioxide, venous blood 28.4 mmol/L 21.0-32.0 blood glucose 131 mg/dL 65-110 calcium, serum 9.7 mg/dL 8.5-10.1 urea nitrogen, blood 19 mg/dL 7-18 creatinine, serum 0.80 mg/dL 0.60-1.30 hemoglobin A1C, blood, as % of total hemoglobin 7.0 % 4.3-6.0 cholesterol, serum 156 mg/dL 955-461 6492/01/09 triglyceride, serum, fasting 168 mg/dL 30-200 HDL [...] HGBA1C - Chemistry sodium, serum 140 mmol/L 421-014 8445/07/23 potassium, serum 4.5 mmol/L 3.5-5.2 chloride, serum [...] No Encounters Code Encounter Date Provider Facility CPT-54006 Level 4 Est. Patient 14:21:01 WANT AD CLERK Nadir Hector MD [facility] CPT-88749 Level 3 Est. Patient 16:41:34 CDT Nadir Hector MD [facility] CPT-77094 Level 4 Est. Patient 13:54:35 WANT AD CLERK Nadir Hector MD [facility] CPT-82086 Level 3 Est. Patient 15:51:21 CDT Nadir Hector MD [facility] CPT-27936 Level 4 New Patient 15:58:26 CDT Catalino Irene MD [facility] CPT-38205 Level 4 Est. Patient 15:42:38 WANT AD CLERK Nadir Hector MD [facility] Procedures Code Procedure Name Date Entry Date Standard Description CPT-000 Give Appropriate Flu Vaccine 13:54:35 WANT AD CLERK CPT-000 Give Pneumovax 13:54:35 WANT AD CLERK CPT-01705 Administration 2+ single or combination vaccines inc oral 14:01:24 WANT AD CLERK CPT-14471 Administration single or combination vaccine inc oral 14 :01:24 WANT AD CLERK CPT-78337 Influenza High Dose age 65+ 14:01:24 WANT AD CLERK CPT-12826 Pneumovax 14:01:24 WANT AD CLERK CPT-29637 Venipuncture Draw Fee 10:36:48 CDT CPT-000 Give Appropriate Flu Vaccine 15:20:11 WANT AD CLERK CPT-74661 Administration single or combination vaccine inc oral 15 :50:33 WANT AD CLERK CPT-01177 Influenza High Dose age 65+ 15:50:33 WANT AD CLERK CPT-08747 LS spine AP and Lat 15:30:05 WANT AD CLERK CPT-71296 Hip comp min 2V 15:30:05 WANT AD CLERK CPT-12202 Postop F/U Visit 17:28:18 CDT CPT-OV Office Visit 15:04:38 CDT CPT-94812 Bladder Scan 15:58:26 CDT CPT-08420 Cystoscopy 15:58:26 CDT CPT-OV Office Visit 16:15:09 CDT CPT-000 Give Appropriate Flu Vaccine 16:33:10 WANT AD CLERK CPT-05892 Administration single or combination vaccine inc oral 19 :21:12 WANT AD CLERK CPT-62225 Influenza split virus > age 3 19:21:12 WANT AD CLERK
--- OUTSIDE RECORDS SUMMARY | 2017-11-11 07:45 | XMS REPORT | Clinical Summary ---
Author Author Admin, IMTIAZ Organization [facility] Address Unknown Phone Unavailable Allergies, Adverse Reactions, [...] 2 po BID x 10 days AMOXICILLIN 19325388668 No Longer Active Nadir Hector MD Active GLUCOTROL XL 5 MG [id number] one tablet daily GLIPIZIDE 21555234933 Active Nadir Hector MD Active JANUVIA 100 MG TABS 1 tablet by mouth daily SITAGLIPTIN PHOSPHATE 73167602991 No Longer Active Nadir Hector MD Active JANUVIA 100 MG TABS Take 1 tab daily SITAGLIPTIN PHOSPHATE 52355895045 No Longer Active Sharon Nuñez Active MACROBID 100 MG CAP 1 cap by mouth twice daily NITROFURANTOIN MONOHYD MACRO 99075673167 No Longer Active Crystal Fernández APRN Active MACRODANTIN 100 MG CAPS 1 capsule by mouth twice daily for seven days NITROFURANTOIN MACROCRYSTAL 92839558678 No Longer Active Ro Yang RN Active BACTRIM DS 800-160 MG TABS one tablet twice a day for seven days SULFAMETHOXAZOLE-TRIMETHOPRIM 93222511974 No Longer Active HEMANTH Griffin Active BACTRIM DS 800-160 MG TABS TAKE ONE TABLET BY MOUTH TWICE DAILY FOR 7 DAYS SULFAMETHOXAZOLE-TRIMETHOPRIM 40753768915 No Longer Active Viviana Lal RN Active CIPRO 250 MG TABS TAKE ONE TABLET BY MOUTH TWICE DAILY FOR 5 DAYS CIPROFLOXACIN HCL 45065273662 No Longer Active Viviana Lal RN Active FLEXERIL 10 MG TABS 1/2 TO 1 TABLET Q12H NEEDED CYCLOBENZAPRINE HCL 76278004768 No Longer Active Viviana Lal RN Active AMLODIPINE BESYLATE 5 MG TABS 1 1/2 daily AMLODIPINE BESYLATE 41836843515 Active Nadir Hector MD Active ONGLYZA 5 MG TABS 1 QAM SAXAGLIPTIN HCL 70170527902 No Longer Active Nadir Hector MD Active AMLODIPINE BESYLATE 5 MG TABS 1 1/2 TABLET DAILY AMLODIPINE BESYLATE 17086783924 No Longer Active Nadir Hector MD Active LORTAB 5-500 MG TABS 1 BY MOUTH Q6H NEEDED HYDROCODONE- ACETAMINOPHEN 01693574575 No Longer Active Nadir Hector MD Active ACTOS 45 MG TABS 1 QD PIOGLITAZONE HCL 75324944526 No Longer Active Nadir Hector MD Active BACTRIM DS 800-160 MG TAB 1 tab by mouth twice daily TRIMETHOPRIM-SULFAMETHOXAZOLE 51617033555 No Longer Active Nadir Hector MD Active CALCIUM + D 600-200 MG-UNIT TABS 1 TABLET TWO TIMES A DAY CALCIUM CARBONATE-VITAMIN D 45456712337 Active Ro Yang RN Active METOPROLOL SUCCINATE 25 MG [id number] 1 QAM METOPROLOL SUCCINATE 57762316337 Active Nadir Hector MD Active AMARYL 4 MG TABS 1 QD GLIMEPIRIDE 58817788657 Active Nadir Hector MD Active LOVASTATIN 40 MG TABS 1 QD LOVASTATIN 39488807799 Active Nadir Hector MD Active GLUCOPHAGE 1000 MG TABS 1 TABLET TWO TIMES A DAY METFORMIN HCL 78086243675 Active Nadir Hector MD Active MAXZIDE-25 37.5-25 MG TABS 1 QD TRIAMTERENE-HCTZ 30958958457 Active Nadir Hector MD Active ACCUPRIL 40 MG TABS 1 QD QUINAPRIL HCL 12512398029 Active Nadir Hector MD Active BACTRIM DS 800-160 MG TAB 1 tab by mouth twice daily BACTRIM DS 800-160 MG TAB TRIMETHOPRIM-SULFAMETHOXAZOLE Inactive ACTOS 45 MG TABS 1 QD ACTOS 45 MG TABS 668828 PIOGLITAZONE HCL Inactive LORTAB 5-500 MG TABS 1 BY MOUTH Q6H NEEDED LORTAB 5-500 MG TABS HYDROCODONE-ACETAMINOPHEN Inactive AMLODIPINE BESYLATE 5 MG TABS 1 1/2 TABLET DAILY AMLODIPINE BESYLATE 5 MG TABS 408882 AMLODIPINE BESYLATE Inactive ONGLYZA 5 MG TABS 1 QAM ONGLYZA 5 MG TABS SAXAGLIPTIN HCL Inactive FLEXERIL 10 MG TABS 1/2 TO 1 TABLET Q12H NEEDED FLEXERIL 10 MG TABS CYCLOBENZAPRINE HCL Inactive CIPRO 250 MG TABS TAKE ONE TABLET BY MOUTH TWICE DAILY FOR 5 DAYS CIPRO 250 MG TABS 930741 CIPROFLOXACIN HCL Inactive BACTRIM DS 800-160 MG TABS TAKE ONE TABLET BY MOUTH TWICE DAILY FOR 7 DAYS BACTRIM DS 800-160 MG TABS SULFAMETHOXAZOLE-TRIMETHOPRIM Inactive BACTRIM DS 800-160 MG TABS one tablet twice a day for seven days BACTRIM DS 800-160 MG TABS SULFAMETHOXAZOLE-TRIMETHOPRIM Inactive MACROBID 100 MG CAP 1 cap by mouth twice daily MACROBID 100 MG CAP 300234 NITROFURANTOIN MONOHYD MACRO Inactive JANUVIA 100 MG TABS Take 1 tab daily JANUVIA 100 MG TABS SITAGLIPTIN PHOSPHATE Inactive MACRODANTIN 100 MG CAPS 1 capsule by mouth twice daily for seven days MACRODANTIN 100 MG CAPS 391850 NITROFURANTOIN MACROCRYSTAL Inactive AMOXICILLIN 500 MG CAPS 2 po BID x 10 days AMOXICILLIN 500 MG CAPS 813719 AMOXICILLIN Inactive Advance Directives Directive Description Start Date PERMISSION TO SHARE Immunizations Vaccine Administration Date Value Standard Description pneumococcal immunization administered Pneumovax 23 [CVX33] pneumococcal polysaccharide vaccine, 23 valent Seasonal influenza vaccine, injectable, containing preservative, for > 3 years old (Afluria, FluLaval, Fluzone, Fluvirin, Fluarix, Agriflu(>=18 yo)) Fluzone (>3 yrs.) [MBK050] Influenza, seasonal, injectable Vital Signs Date Name [...] Panel - Chemistry sodium, serum 139 mmol/L 623-661 9626/09/05 potassium, serum 4.1 mmol/L 3.5-5.2 chloride, serum 103 mmol/L 98-107 carbon dioxide, venous blood 29.8 mmol/L 21.0-32.0 blood glucose 81 mg/dL 65-110 calcium, serum 8.9 mg/dL 8.5-10.1 urea nitrogen, blood 16 mg/dL 7-18 creatinine, serum 1.10 mg/dL 0.60-1.30 Lab Report: CBC, Basic Metabolic Panel, HGBA1C, Lipid Panel - Chemistry sodium, serum 137 mmol/L 130-595 2119/01/09 potassium, serum 4.3 mmol/L 3.5-5.2 chloride, serum 99 mmol/L 98-107 carbon dioxide, venous blood 28.4 mmol/L 21.0-32.0 blood glucose 131 mg/dL 65-110 calcium, serum 9.7 mg/dL 8.5-10.1 urea nitrogen, blood 19 mg/dL 7-18 creatinine, serum 0.80 mg/dL 0.60-1.30 hemoglobin A1C, blood, as % of total hemoglobin 7.0 % 4.3-6.0 cholesterol, serum 156 mg/dL 659-900 9187/01/09 triglyceride, serum, fasting 168 mg/dL 30-200 [...] HGBA1C - Chemistry sodium, serum 140 mmol/L 401-738 2697/07/23 potassium, serum 4.5 mmol/L 3.5-5.2 chloride, serum [...] No Encounters Code Encounter Date Provider Facility CPT-22709 Level 3 Est. Patient 16:41:34 CDT Nadir Hector MD [facility] CPT-37920 Level 4 Est. Patient 13:54:35 ADULT SERVICES LIBRARIAN Nadir Hector MD [facility] CPT-02762 Level 3 Est. Patient 15:51:21 CDT Nadir Hector MD [facility] CPT-79209 Level 4 New Patient 15:58:26 CDT Catalino Irene MD [facility] CPT-93208 Level 4 Est. Patient 15:42:38 ADULT SERVICES LIBRARIAN Nadir Hector MD [facility] Procedures Code Procedure Name Date Entry Date Standard Description CPT-000 Give Appropriate Flu Vaccine 13:54:35 ADULT SERVICES LIBRARIAN CPT-000 Give Pneumovax 13:54:35 ADULT SERVICES LIBRARIAN CPT-50723 Administration 2+ single or combination vaccines inc oral 14:01:24 ADULT SERVICES LIBRARIAN CPT-13703 Administration single or combination vaccine inc oral 14 :01:24 ADULT SERVICES LIBRARIAN CPT-08174 Influenza High Dose age 65+ 14:01:24 ADULT SERVICES LIBRARIAN CPT-24777 Pneumovax 14:01:24 ADULT SERVICES LIBRARIAN CPT-98889 Venipuncture Draw Fee 10:36:48 CDT CPT-000 Give Appropriate Flu Vaccine 15:20:11 ADULT SERVICES LIBRARIAN CPT-52316 Administration single or combination vaccine inc oral 15 :50:33 ADULT SERVICES LIBRARIAN CPT-36637 Influenza High Dose age 65+ 15:50:33 ADULT SERVICES LIBRARIAN CPT-79154 LS spine AP and Lat 15:30:05 ADULT SERVICES LIBRARIAN CPT-61297 Hip comp min 2V 15:30:05 ADULT SERVICES LIBRARIAN CPT-01926 Postop F/U Visit 17:28:18 CDT CPT-OV Office Visit 15:04:38 CDT CPT-54768 Bladder Scan 15:58:26 CDT CPT-81533 Cystoscopy 15:58:26 CDT CPT-OV Office Visit 16:15:09 CDT CPT-000 Give Appropriate Flu Vaccine 16:33:10 ADULT SERVICES LIBRARIAN CPT-98221 Administration single or combination vaccine inc oral 19 :21:12 ADULT SERVICES LIBRARIAN CPT-79616 Influenza split virus > age 3 19:21:12 ADULT SERVICES LIBRARIAN
--- OUTSIDE RECORDS SUMMARY | 2017-11-11 07:46 | XMS REPORT | Clinical Summary ---
Author Author Admin, IMTIAZ Organization [facility] Address Unknown Phone Unavailable Allergies, [...] Routine general medical examination at a [facility] care facility PERIPHERAL NEUROPATHY 356.9 [...] 2 po BID x 10 days AMOXICILLIN 28530375337 No Longer Active Nadir Hector MD Active GLUCOTROL XL 5 MG [id number] one tablet daily GLIPIZIDE 54792076724 Active Nadir Hector MD Active JANUVIA 100 MG TABS 1 tablet by mouth daily SITAGLIPTIN PHOSPHATE 14212279011 No Longer Active Nadir Hector MD Active JANUVIA 100 MG TABS Take 1 tab daily SITAGLIPTIN PHOSPHATE 45872571765 No Longer Active Sharon Nuñez Active MACROBID 100 MG CAP 1 cap by mouth twice daily NITROFURANTOIN MONOHYD MACRO 06279487662 No Longer Active Crystal Fernández APRN Active MACRODANTIN 100 MG CAPS 1 capsule by mouth twice daily for seven days NITROFURANTOIN MACROCRYSTAL 96985259408 No Longer Active Ro Yang RN Active BACTRIM DS 800-160 MG TABS one tablet twice a day for seven days SULFAMETHOXAZOLE-TRIMETHOPRIM 46126684654 No Longer Active HEMANTH Griffin Active BACTRIM DS 800-160 MG TABS TAKE ONE TABLET BY MOUTH TWICE DAILY FOR 7 DAYS SULFAMETHOXAZOLE-TRIMETHOPRIM 06422953440 No Longer Active Viviana Lal RN Active CIPRO 250 MG TABS TAKE ONE TABLET BY MOUTH TWICE DAILY FOR 5 DAYS CIPROFLOXACIN HCL 71145226931 No Longer Active Viviana Lal RN Active FLEXERIL 10 MG TABS 1/2 TO 1 TABLET Q12H NEEDED CYCLOBENZAPRINE HCL 62608051356 No Longer Active Viviana Lal RN Active AMLODIPINE BESYLATE 5 MG TABS 1 1/2 daily AMLODIPINE BESYLATE 09937072684 Active Nadir Hector MD Active ONGLYZA 5 MG TABS 1 QAM SAXAGLIPTIN HCL 82983592121 No Longer Active Nadir Hector MD Active AMLODIPINE BESYLATE 5 MG TABS 1 1/2 TABLET DAILY AMLODIPINE BESYLATE 62356235854 No Longer Active Nadir Hector MD Active LORTAB 5-500 MG TABS 1 BY MOUTH Q6H NEEDED HYDROCODONE- ACETAMINOPHEN 30445000774 No Longer Active Nadir Hector MD Active ACTOS 45 MG TABS 1 QD PIOGLITAZONE HCL 18472412637 No Longer Active Nadir Hector MD Active BACTRIM DS 800-160 MG TAB 1 tab by mouth twice daily TRIMETHOPRIM-SULFAMETHOXAZOLE 48736563956 No Longer Active Nadir Hector MD Active CALCIUM + D 600-200 MG-UNIT TABS 1 TABLET TWO TIMES A DAY CALCIUM CARBONATE-VITAMIN D 01571333085 Active Ro Yang RN Active METOPROLOL SUCCINATE 25 MG [id number] 1 QAM METOPROLOL SUCCINATE 51954943349 Active Nadir Hector MD Active AMARYL 4 MG TABS 1 QD GLIMEPIRIDE 24789382371 Active Nadir Hector MD Active LOVASTATIN 40 MG TABS 1 QD LOVASTATIN 99757974003 Active Nadir Hector MD Active GLUCOPHAGE 1000 MG TABS 1 TABLET TWO TIMES A DAY METFORMIN HCL 19766853952 Active Nadir Hector MD Active MAXZIDE-25 37.5-25 MG TABS 1 QD TRIAMTERENE-HCTZ 09451003922 Active Nadir Hector MD Active ACCUPRIL 40 MG TABS 1 QD QUINAPRIL HCL 14840946460 Active Nadir Hector MD Active BACTRIM DS 800-160 MG TAB 1 tab by mouth twice daily BACTRIM DS 800-160 MG TAB TRIMETHOPRIM-SULFAMETHOXAZOLE Inactive ACTOS 45 MG TABS 1 QD ACTOS 45 MG TABS 699299 PIOGLITAZONE HCL Inactive LORTAB 5-500 MG TABS 1 BY MOUTH Q6H NEEDED LORTAB 5-500 MG TABS HYDROCODONE-ACETAMINOPHEN Inactive AMLODIPINE BESYLATE 5 MG TABS 1 1/2 TABLET DAILY AMLODIPINE BESYLATE 5 MG TABS 013096 AMLODIPINE BESYLATE Inactive ONGLYZA 5 MG TABS 1 QAM ONGLYZA 5 MG TABS SAXAGLIPTIN HCL Inactive FLEXERIL 10 MG TABS 1/2 TO 1 TABLET Q12H NEEDED FLEXERIL 10 MG TABS CYCLOBENZAPRINE HCL Inactive CIPRO 250 MG TABS TAKE ONE TABLET BY MOUTH TWICE DAILY FOR 5 DAYS CIPRO 250 MG TABS 153144 CIPROFLOXACIN HCL Inactive BACTRIM DS 800-160 MG TABS TAKE ONE TABLET BY MOUTH TWICE DAILY FOR 7 DAYS BACTRIM DS 800-160 MG TABS SULFAMETHOXAZOLE-TRIMETHOPRIM Inactive BACTRIM DS 800-160 MG TABS one tablet twice a day for seven days BACTRIM DS 800-160 MG TABS SULFAMETHOXAZOLE-TRIMETHOPRIM Inactive MACROBID 100 MG CAP 1 cap by mouth twice daily MACROBID 100 MG CAP 167863 NITROFURANTOIN MONOHYD MACRO Inactive JANUVIA 100 MG TABS Take 1 tab daily JANUVIA 100 MG TABS SITAGLIPTIN PHOSPHATE Inactive MACRODANTIN 100 MG CAPS 1 capsule by mouth twice daily for seven days MACRODANTIN 100 MG CAPS 279257 NITROFURANTOIN MACROCRYSTAL Inactive AMOXICILLIN 500 MG CAPS 2 po BID x 10 days AMOXICILLIN 500 MG CAPS 827664 AMOXICILLIN Inactive Advance Directives Directive Description Start Date PERMISSION TO SHARE Immunizations Vaccine Administration Date Value Standard Description pneumococcal immunization administered Pneumovax 23 [CVX33] pneumococcal polysaccharide vaccine, 23 valent Seasonal influenza vaccine, injectable, containing preservative, for > 3 years old (Afluria, FluLaval, Fluzone, Fluvirin, Fluarix, Agriflu(>=18 yo)) Fluzone (>3 yrs.) [[id number]] Influenza, seasonal, injectable Vital Signs Date Name [...] Panel - Chemistry sodium, serum 139 mmol/L 410-998 5792/09/05 potassium, serum 4.1 mmol/L 3.5-5.2 chloride, serum 103 mmol/L 98-107 carbon dioxide, venous blood 29.8 mmol/L 21.0-32.0 blood glucose 81 mg/dL 65-110 calcium, serum 8.9 mg/dL 8.5-10.1 urea nitrogen, blood 16 mg/dL 7-18 creatinine, serum 1.10 mg/dL 0.60-1.30 Lab Report: CBC, Basic Metabolic Panel, HGBA1C, Lipid Panel - Chemistry sodium, serum 137 mmol/L 379-290 7437/01/09 potassium, serum 4.3 mmol/L 3.5-5.2 chloride, serum 99 mmol/L 98-107 carbon dioxide, venous blood 28.4 mmol/L 21.0-32.0 blood glucose 131 mg/dL 65-110 calcium, serum 9.7 mg/dL 8.5-10.1 urea nitrogen, blood 19 mg/dL 7-18 creatinine, serum 0.80 mg/dL 0.60-1.30 hemoglobin A1C, blood, as % of total hemoglobin 7.0 % 4.3-6.0 cholesterol, serum 156 mg/dL 275-224 5093/01/09 triglyceride, serum, fasting 168 mg/dL 30-200 HDL [...] HGBA1C - Chemistry sodium, serum 140 mmol/L 768-798 8378/07/23 potassium, serum 4.5 mmol/L 3.5-5.2 chloride, serum [...] No Encounters Code Encounter Date Provider Facility CPT-20864 Level 3 Est. Patient 16:41:34 CDT Nadir Hector MD [facility] CPT-23971 Level 4 Est. Patient 13:54:35 [employer]EST FIREFIGH[employer] Nadir Hector MD [facility] CPT-24052 Level 3 Est. Patient 15:51:21 CDT Nadir Hector MD [facility] CPT-19937 Level 4 New Patient 15:58:26 CDT Catalino Irene MD [facility] CPT-81447 Level 4 Est. Patient 15:42:38 [employer]EST [employer]FIG[employer] Nadir Hector MD [facility] Procedures Code Procedure Name Date Entry Date Standard Description CPT-000 Give Appropriate Flu Vaccine 13:54:35 [employer] CPT-000 Give Pneumovax 13:54:35 [employer] CPT-52920 Administration 2+ single or combination vaccines inc oral 14:01:24 [employer] CPT-97774 Administration single or combination vaccine inc oral 14 :01:24 [employer]EST FI[employer] CPT-81946 Influenza High Dose age 65+ 14:01:24 [employer]EST FIRE[employer] CPT-80128 Pneumovax 14:01:24 [employer]EST FIRE[employer] CPT-58814 Venipuncture Draw Fee 10:36:48 CDT CPT-000 Give Appropriate Flu Vaccine 15:20:11 [employer] CPT-75541 Administration single or combination vaccine inc oral 15 :50:33 [employer] CPT-85689 Influenza High Dose age 65+ 15:50:33 [employer]EST FIRE[employer] CPT-62561 LS spine AP and Lat 15:30:05 [employer] CPT-36435 Hip comp min 2V 15:30:05 [employer]EST FIRE[employer] CPT-41221 Postop F/U Visit 17:28:18 CDT CPT-OV Office Visit 15:04:38 CDT CPT-22419 Bladder Scan 15:58:26 CDT CPT-45696 Cystoscopy 15:58:26 CDT CPT-OV Office Visit 16:15:09 CDT CPT-000 Give Appropriate Flu Vaccine 16:33:10 [employer] CPT-86030 Administration single or combination vaccine inc oral 19 :21:12 [employer]EST FIREFIGH[employer] CPT-73940 Influenza split virus > age 3 19:21:12 [employer]EST 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
--- OUTSIDE RECORDS SUMMARY | 2017-11-11 07:46 | XMS REPORT | Clinical Summary ---
Author Author Admin, IMTIAZ Organization [facility] Address Unknown Phone Unavailable Allergies, Adverse [...] MD Routine general medical examination at a [facility] care facility PERIPHERAL NEUROPATHY 356.9 Active Nadir [...] 2 po BID x 10 days AMOXICILLIN 79068780906 No Longer Active Nadir Hector MD Active GLUCOTROL XL 5 MG [id number] one tablet daily GLIPIZIDE 92498224559 Active Nadir Hector MD Active JANUVIA 100 MG TABS 1 tablet by mouth daily SITAGLIPTIN PHOSPHATE 85289945519 No Longer Active Nadir Hector MD Active JANUVIA 100 MG TABS Take 1 tab daily SITAGLIPTIN PHOSPHATE 35106315508 No Longer Active Sharon Nuñez Active MACROBID 100 MG CAP 1 cap by mouth twice daily NITROFURANTOIN MONOHYD MACRO 21728785413 No Longer Active Crystal Fernández APRN Active MACRODANTIN 100 MG CAPS 1 capsule by mouth twice daily for seven days NITROFURANTOIN MACROCRYSTAL 69478674413 No Longer Active Ro Yang RN Active BACTRIM DS 800-160 MG TABS one tablet twice a day for seven days SULFAMETHOXAZOLE-TRIMETHOPRIM 67944850586 No Longer Active HEMANTH Griffin Active BACTRIM DS 800-160 MG TABS TAKE ONE TABLET BY MOUTH TWICE DAILY FOR 7 DAYS SULFAMETHOXAZOLE-TRIMETHOPRIM 06156136244 No Longer Active Viviana Lal RN Active CIPRO 250 MG TABS TAKE ONE TABLET BY MOUTH TWICE DAILY FOR 5 DAYS CIPROFLOXACIN HCL 35324118087 No Longer Active Viviana Lal RN Active FLEXERIL 10 MG TABS 1/2 TO 1 TABLET Q12H NEEDED CYCLOBENZAPRINE HCL 96118121410 No Longer Active Viviana Lal RN Active AMLODIPINE BESYLATE 5 MG TABS 1 1/2 daily AMLODIPINE BESYLATE 58005397296 Active Nadir Hector MD Active ONGLYZA 5 MG TABS 1 QAM SAXAGLIPTIN HCL 68381470722 No Longer Active Nadir Hector MD Active AMLODIPINE BESYLATE 5 MG TABS 1 1/2 TABLET DAILY AMLODIPINE BESYLATE 75846087239 No Longer Active Nadir Hector MD Active LORTAB 5-500 MG TABS 1 BY MOUTH Q6H NEEDED HYDROCODONE- ACETAMINOPHEN 12259827002 No Longer Active Nadir Hector MD Active ACTOS 45 MG TABS 1 QD PIOGLITAZONE HCL 75166580331 No Longer Active Nadir Hector MD Active BACTRIM DS 800-160 MG TAB 1 tab by mouth twice daily TRIMETHOPRIM-SULFAMETHOXAZOLE 22868219264 No Longer Active Nadir Hector MD Active CALCIUM + D 600-200 MG-UNIT TABS 1 TABLET TWO TIMES A DAY CALCIUM CARBONATE-VITAMIN D 62541816960 Active Ro Yang RN Active METOPROLOL SUCCINATE 25 MG [id number] 1 QAM METOPROLOL SUCCINATE 17427065672 Active Nadir Hector MD Active AMARYL 4 MG TABS 1 QD GLIMEPIRIDE 81725777852 Active Nadir Hector MD Active LOVASTATIN 40 MG TABS 1 QD LOVASTATIN 35692085220 Active Nadir Hector MD Active GLUCOPHAGE 1000 MG TABS 1 TABLET TWO TIMES A DAY METFORMIN HCL 02887610733 Active Nadir Hector MD Active MAXZIDE-25 37.5-25 MG TABS 1 QD TRIAMTERENE-HCTZ 36311952343 Active Nadir Hector MD Active ACCUPRIL 40 MG TABS 1 QD QUINAPRIL HCL 93509731451 Active Nadir Hector MD Active BACTRIM DS 800-160 MG TAB 1 tab by mouth twice daily BACTRIM DS 800-160 MG TAB TRIMETHOPRIM-SULFAMETHOXAZOLE Inactive ACTOS 45 MG TABS 1 QD ACTOS 45 MG TABS 882246 PIOGLITAZONE HCL Inactive LORTAB 5-500 MG TABS 1 BY MOUTH Q6H NEEDED LORTAB 5-500 MG TABS HYDROCODONE-ACETAMINOPHEN Inactive AMLODIPINE BESYLATE 5 MG TABS 1 1/2 TABLET DAILY AMLODIPINE BESYLATE 5 MG TABS 228906 AMLODIPINE BESYLATE Inactive ONGLYZA 5 MG TABS 1 QAM ONGLYZA 5 MG TABS SAXAGLIPTIN HCL Inactive FLEXERIL 10 MG TABS 1/2 TO 1 TABLET Q12H NEEDED FLEXERIL 10 MG TABS CYCLOBENZAPRINE HCL Inactive CIPRO 250 MG TABS TAKE ONE TABLET BY MOUTH TWICE DAILY FOR 5 DAYS CIPRO 250 MG TABS 041577 CIPROFLOXACIN HCL Inactive BACTRIM DS 800-160 MG TABS TAKE ONE TABLET BY MOUTH TWICE DAILY FOR 7 DAYS BACTRIM DS 800-160 MG TABS SULFAMETHOXAZOLE-TRIMETHOPRIM Inactive BACTRIM DS 800-160 MG TABS one tablet twice a day for seven days BACTRIM DS 800-160 MG TABS SULFAMETHOXAZOLE-TRIMETHOPRIM Inactive MACROBID 100 MG CAP 1 cap by mouth twice daily MACROBID 100 MG CAP 028301 NITROFURANTOIN MONOHYD MACRO Inactive JANUVIA 100 MG TABS Take 1 tab daily JANUVIA 100 MG TABS SITAGLIPTIN PHOSPHATE Inactive MACRODANTIN 100 MG CAPS 1 capsule by mouth twice daily for seven days MACRODANTIN 100 MG CAPS 661854 NITROFURANTOIN MACROCRYSTAL Inactive AMOXICILLIN 500 MG CAPS 2 po BID x 10 days AMOXICILLIN 500 MG CAPS 518019 AMOXICILLIN Inactive Advance Directives Directive Description Start Date PERMISSION TO SHARE Immunizations Vaccine Administration Date Value Standard Description pneumococcal immunization administered Pneumovax 23 [CVX33] pneumococcal polysaccharide vaccine, 23 valent Seasonal influenza vaccine, injectable, containing preservative, for > 3 years old (Afluria, FluLaval, Fluzone, Fluvirin, Fluarix, Agriflu(>=18 yo)) Fluzone (>3 yrs.) [XZU702] Influenza, seasonal, injectable Vital Signs Date Name [...] Panel - Chemistry sodium, serum 137 mmol/L 532-415 4598/01/09 potassium, serum 4.3 mmol/L 3.5-5.2 chloride, serum 99 mmol/L 98-107 carbon dioxide, venous blood 28.4 mmol/L 21.0-32.0 blood glucose 131 mg/dL 65-110 calcium, serum 9.7 mg/dL 8.5-10.1 urea nitrogen, blood 19 mg/dL 7-18 creatinine, serum 0.80 mg/dL 0.60-1.30 hemoglobin A1C, blood, as % of total hemoglobin 7.0 % 4.3-6.0 cholesterol, serum 156 mg/dL 878-287 0083/01/09 triglyceride, serum, fasting 168 mg/dL 30-200 HDL [...] HGBA1C - Chemistry sodium, serum 140 mmol/L 205-202 4742/07/23 potassium, serum 4.5 mmol/L 3.5-5.2 chloride, serum [...] No Encounters Code Encounter Date Provider Facility CPT-69331 Level 3 Est. Patient 16:41:34 CDT Nadir Hector MD [facility] CPT-09467 Level 4 Est. Patient 13:54:35 [employer]PERINT[employer] Nadir Hector MD [facility] CPT-39571 Level 3 Est. Patient 15:51:21 CDT Nadir Hector MD [facility] CPT-50781 Level 4 New Patient 15:58:26 CDT Catalino Irene MD [facility] CPT-19252 Level 4 Est. Patient 15:42:38 [employer] Nadir Hector MD [facility] Procedures Code Procedure Name Date Entry Date Standard Description CPT-000 Give Appropriate Flu Vaccine 13:54:35 [employer] CPT-000 Give Pneumovax 13:54:35 [employer] CPT-32995 Administration 2+ single or combination vaccines inc oral 14:01:24 [employer] CPT-71943 Administration single or combination vaccine inc oral 14 :01:24 [employer] CPT-17923 Influenza High Dose age 65+ 14:01:24 [employer] CPT-01246 Pneumovax 14:01:24 [employer] CPT-76784 Venipuncture Draw Fee 10:36:48 CDT CPT-000 Give Appropriate Flu Vaccine 15:20:11 [employer] CPT-40631 Administration single or combination vaccine inc oral 15 :50:33 [employer] CPT-31519 Influenza High Dose age 65+ 15:50:33 [employer] CPT-93175 LS spine AP and Lat 15:30:05 [employer] CPT-75910 Hip comp min 2V 15:30:05 [employer]INT[employer] CPT-34033 Postop F/U Visit 17:28:18 CDT CPT-OV Office Visit 15:04:38 CDT CPT-46065 Bladder Scan 15:58:26 CDT CPT-70066 Cystoscopy 15:58:26 CDT CPT-OV Office Visit 16:15:09 CDT CPT-000 Give Appropriate Flu Vaccine 16:33:10 [employer] CPT-38446 Administration single or combination vaccine inc oral 19 :21:12 [employer] CPT-65661 Influenza split virus > age 3 19:21:12 [employer]
--- OUTSIDE RECORDS SUMMARY | 2017-11-11 07:47 | XMS REPORT | Clinical Summary ---
Author Author Admin, IMTIAZ Organization [facility] Address Unknown Phone Allergies, Adverse [...] 2 po BID x 10 days AMOXICILLIN 46127554790 No Longer Active Nadir Hector MD Active GLUCOTROL XL 5 MG [id number] one tablet daily GLIPIZIDE 30094264920 Active Nadir Hector MD Active JANUVIA 100 MG TABS 1 tablet by mouth daily SITAGLIPTIN PHOSPHATE 26449625735 No Longer Active Nadir Hector MD Active JANUVIA 100 MG TABS Take 1 tab daily SITAGLIPTIN PHOSPHATE 30258425050 No Longer Active Sharon Nuñez Active MACROBID 100 MG CAP 1 cap by mouth twice daily NITROFURANTOIN MONOHYD MACRO 82733224238 No Longer Active Crystal Fernández APRN Active MACRODANTIN 100 MG CAPS 1 capsule by mouth twice daily for seven days NITROFURANTOIN MACROCRYSTAL 67723735775 No Longer Active Ro Yang RN Active BACTRIM DS 800-160 MG TABS one tablet twice a day for seven days SULFAMETHOXAZOLE-TRIMETHOPRIM 42222350620 No Longer Active Sancho Camejo Active BACTRIM DS 800-160 MG TABS TAKE ONE TABLET BY MOUTH TWICE DAILY FOR 7 DAYS SULFAMETHOXAZOLE-TRIMETHOPRIM 38515729791 No Longer Active Viviana Lal RN Active CIPRO 250 MG TABS TAKE ONE TABLET BY MOUTH TWICE DAILY FOR 5 DAYS CIPROFLOXACIN HCL 27398537817 No Longer Active Viviana Lal RN Active FLEXERIL 10 MG TABS 1/2 TO 1 TABLET Q12H NEEDED CYCLOBENZAPRINE HCL 72570522903 No Longer Active Viviana Lal RN Active AMLODIPINE BESYLATE 5 MG TABS 1 1/2 daily AMLODIPINE BESYLATE 79373724983 Active Nadir Hector MD Active ONGLYZA 5 MG TABS 1 QAM SAXAGLIPTIN HCL 56283902587 No Longer Active Nadir Hector MD Active AMLODIPINE BESYLATE 5 MG TABS 1 1/2 TABLET DAILY AMLODIPINE BESYLATE 62920208944 No Longer Active Nadir Hector MD Active LORTAB 5-500 MG TABS 1 BY MOUTH Q6H NEEDED HYDROCODONE- ACETAMINOPHEN 51823042016 No Longer Active Nadir Hector MD Active ACTOS 45 MG TABS 1 QD PIOGLITAZONE HCL 78350904889 No Longer Active Nadir Hector MD Active BACTRIM DS 800-160 MG TAB 1 tab by mouth twice daily TRIMETHOPRIM-SULFAMETHOXAZOLE 28145335179 No Longer Active Nadir Hector MD Active CALCIUM + D 600-200 MG-UNIT TABS 1 TABLET TWO TIMES A DAY CALCIUM CARBONATE-VITAMIN D 57051074066 Active Ro Yang RN Active METOPROLOL SUCCINATE 25 MG [id number] 1 QAM METOPROLOL SUCCINATE 33952411696 Active Nadir Hector MD Active AMARYL 4 MG TABS 1 QD GLIMEPIRIDE 90129681566 Active Nadir Hector MD Active LOVASTATIN 40 MG TABS 1 QD LOVASTATIN 09185712152 Active Nadir Hector MD Active GLUCOPHAGE 1000 MG TABS 1 TABLET TWO TIMES A DAY METFORMIN HCL 22777577468 Active Nadir Hector MD Active MAXZIDE-25 37.5-25 MG TABS 1 QD TRIAMTERENE-HCTZ 47346909036 Active Nadir Hector MD Active ACCUPRIL 40 MG TABS 1 QD QUINAPRIL HCL 96621937631 Active Nadir Hector MD Active BACTRIM DS 800-160 MG TAB 1 tab by mouth twice daily BACTRIM DS 800-160 MG TAB TRIMETHOPRIM-SULFAMETHOXAZOLE Inactive ACTOS 45 MG TABS 1 QD ACTOS 45 MG TABS 900097 PIOGLITAZONE HCL Inactive LORTAB 5-500 MG TABS 1 BY MOUTH Q6H NEEDED LORTAB 5-500 MG TABS HYDROCODONE-ACETAMINOPHEN Inactive AMLODIPINE BESYLATE 5 MG TABS 1 1/2 TABLET DAILY AMLODIPINE BESYLATE 5 MG TABS 341324 AMLODIPINE BESYLATE Inactive ONGLYZA 5 MG TABS 1 QAM ONGLYZA 5 MG TABS SAXAGLIPTIN HCL Inactive FLEXERIL 10 MG TABS 1/2 TO 1 TABLET Q12H NEEDED FLEXERIL 10 MG TABS CYCLOBENZAPRINE HCL Inactive CIPRO 250 MG TABS TAKE ONE TABLET BY MOUTH TWICE DAILY FOR 5 DAYS CIPRO 250 MG TABS 605159 CIPROFLOXACIN HCL Inactive BACTRIM DS 800-160 MG TABS TAKE ONE TABLET BY MOUTH TWICE DAILY FOR 7 DAYS BACTRIM DS 800-160 MG TABS SULFAMETHOXAZOLE-TRIMETHOPRIM Inactive BACTRIM DS 800-160 MG TABS one tablet twice a day for seven days BACTRIM DS 800-160 MG TABS SULFAMETHOXAZOLE-TRIMETHOPRIM Inactive MACROBID 100 MG CAP 1 cap by mouth twice daily MACROBID 100 MG CAP 695760 NITROFURANTOIN MONOHYD MACRO Inactive JANUVIA 100 MG TABS Take 1 tab daily JANUVIA 100 MG TABS SITAGLIPTIN PHOSPHATE Inactive MACRODANTIN 100 MG CAPS 1 capsule by mouth twice daily for seven days MACRODANTIN 100 MG CAPS 265655 NITROFURANTOIN MACROCRYSTAL Inactive AMOXICILLIN 500 MG CAPS 2 po BID x 10 days AMOXICILLIN 500 MG CAPS 452734 AMOXICILLIN Inactive Advance Directives Directive Description Start Date PERMISSION TO SHARE Immunizations Vaccine Administration Date Value Standard Description pneumococcal immunization administered Pneumovax 23 [CVX33] pneumococcal polysaccharide vaccine, 23 valent Seasonal influenza vaccine, injectable, containing preservative, for > 3 years old (Afluria, FluLaval, Fluzone, Fluvirin, Fluarix, Agriflu(>=18 yo)) Fluzone (>3 yrs.) [[id number]] Influenza, seasonal, injectable Vital Signs Date Name [...] Lab Report: Basic Metabolic Panel - Chemistry blood glucose 81 mg/dL 65-110 calcium, serum 8.9 mg/dL 8.5-10.1 urea nitrogen, blood 16 mg/dL 7-18 creatinine, serum 1.10 mg/dL 0.60-1.30 carbon dioxide, venous blood 29.8 mmol/L 21.0-32.0 chloride, serum 103 mmol/L 98-107 potassium, serum 4.1 mmol/L 3.5-5.2 sodium, serum 139 mmol/L 136-145 Lab Report: CBC, Basic Metabolic Panel, HGBA1C, Lipid Panel - Chemistry sodium, serum 137 mmol/L 558-665 9545/01/09 potassium, serum 4.3 mmol/L 3.5-5.2 chloride, serum 99 mmol/L 98-107 carbon dioxide, venous blood 28.4 mmol/L 21.0-32.0 blood glucose 131 mg/dL 65-110 calcium, serum 9.7 mg/dL 8.5-10.1 urea nitrogen, blood 19 mg/dL 7-18 creatinine, serum 0.80 mg/dL 0.60-1.30 hemoglobin A1C, blood, as % of total hemoglobin 7.0 % 4.3-6.0 cholesterol, serum 156 mg/dL 864-563 7485/01/09 triglyceride, serum, fasting 168 mg/dL 30-200 HDL cholesterol, serum 43 mg/dL 32-96 LDL cholesterol, serum 79 mg/dL 0-130 Lab Report: CBC, Basic Metabolic Panel, HGBA1C, Lipid Panel - Hematology erythrocyte (RBC) count 4.43 10^6/MM^3 10*6/mm3 4.04-5.48 hemoglobin, blood 14.1 g/dL 12.0-16.0 hematocrit, blood 42.3 % 36.0-46.0 mean corpuscular volume, RBC 96 fL 80-97 mean corpuscular hemoglobin, RBC 31.8 pg 27.0-31.2 leukocyte count, blood 8.4 10^3/MM^3 10*3/mm3 4.6-10.2 mean corpuscular hemoglobin concentration, RBC 33.2 G/DL [...] No Encounters Code Encounter Date Provider Facility CPT-94634 Level 3 Est. Patient 16:41:34 CDT Nadir Hector MD [facility] CPT-67973 Level 4 Est. Patient 13:54:35 [employer] Nadir Hector MD [facility] CPT-61522 Level 3 Est. Patient 15:51:21 CDT Nadir Hector MD [facility] CPT-31101 Level 4 New Patient 15:58:26 CDT Catalino Irene MD [facility] CPT-67470 Level 4 Est. Patient 15:42:38 [employer] Nadir Hector MD [facility] Procedures Code Procedure Name Date Entry Date Standard Description CPT-72261 Administration 2+ single or combination vaccines inc oral 14:01:24 [employer] CLE[employer] CPT-96509 Administration single or combination vaccine inc oral 14 :01:24 [employer]APER CLE[employer] CPT-57513 Influenza High Dose age 65+ 14:01:24 [employer]ER CLE[employer] CPT-42020 Pneumovax 14:01:24 [employer] CLE[employer] CPT-02391 Venipuncture Draw Fee 10:36:48 CDT CPT-000 Give Appropriate Flu Vaccine 15:20:11 [employer] CPT-64933 Administration single or combination vaccine inc oral 15 :50:33 [employer]ER CLE[employer] CPT-06734 Influenza High Dose age 65+ 15:50:33 [employer]ER CLE[employer] CPT-96372 LS spine AP and Lat 15:30:05 [employer]ER CLE[employer] CPT-64936 Hip comp min 2V 15:30:05 [employer] CPT-03499 Postop F/U Visit 17:28:18 CDT CPT-OV Office Visit 15:04:38 CDT CPT-36612 Bladder Scan 15:58:26 CDT CPT-77961 Cystoscopy 15:58:26 CDT CPT-OV Office Visit 16:15:09 CDT CPT-000 Give Appropriate Flu Vaccine 16:33:10 [employer] CPT-25398 Administration single or combination vaccine inc oral 19 :21:12 P[employer]ER CLEANER CPT-48330 Influenza split virus > age 3 19:21:12 [employer]ER CLE[employer]ER
--- OUTSIDE RECORDS SUMMARY | 2017-11-11 07:48 | XMS REPORT | Clinical Summary ---
Author Author Admin, IMTIAZ Organization [facility] Address Unknown Phone Allergies, Adverse Reactions, Alerts [...] 2 po BID x 10 days AMOXICILLIN 78612751687 Active Nadir Hector MD Active GLUCOTROL XL 5 MG [id number] one tablet daily GLIPIZIDE 48506297866 Active Nadir Hector MD Active JANUVIA 100 MG TABS 1 tablet by mouth daily SITAGLIPTIN PHOSPHATE 99722245884 No Longer Active Nadir Hector MD Active JANUVIA 100 MG TABS Take 1 tab daily SITAGLIPTIN PHOSPHATE 42713372475 No Longer Active Sharon Nuñez Active MACROBID 100 MG CAP 1 cap by mouth twice daily NITROFURANTOIN MONOHYD MACRO 03514626162 No Longer Active Crystal Fernández APRN Active MACRODANTIN 100 MG CAPS 1 capsule by mouth twice daily for seven days NITROFURANTOIN MACROCRYSTAL 39719113060 No Longer Active Ro Yang RN Active BACTRIM DS 800-160 MG TABS one tablet twice a day for seven days SULFAMETHOXAZOLE-TRIMETHOPRIM 52742095132 No Longer Active Sancho Camejo Active BACTRIM DS 800-160 MG TABS TAKE ONE TABLET BY MOUTH TWICE DAILY FOR 7 DAYS SULFAMETHOXAZOLE-TRIMETHOPRIM 37695459385 No Longer Active Viviana Lal RN Active CIPRO 250 MG TABS TAKE ONE TABLET BY MOUTH TWICE DAILY FOR 5 DAYS CIPROFLOXACIN HCL 69720527874 No Longer Active Viviana Lal RN Active FLEXERIL 10 MG TABS 1/2 TO 1 TABLET Q12H NEEDED CYCLOBENZAPRINE HCL 86002669788 No Longer Active Viviana Lal RN Active AMLODIPINE BESYLATE 5 MG TABS 1 1/2 daily AMLODIPINE BESYLATE 21674279923 Active Nadir Hector MD Active ONGLYZA 5 MG TABS 1 QAM SAXAGLIPTIN HCL 74626431608 No Longer Active Nadir Hector MD Active AMLODIPINE BESYLATE 5 MG TABS 1 1/2 TABLET DAILY AMLODIPINE BESYLATE 68775280749 No Longer Active Nadir Hector MD Active LORTAB 5-500 MG TABS 1 BY MOUTH Q6H NEEDED HYDROCODONE- ACETAMINOPHEN 16843292324 No Longer Active Nadir Hector MD Active ACTOS 45 MG TABS 1 QD PIOGLITAZONE HCL 57955051035 No Longer Active Nadir Hector MD Active BACTRIM DS 800-160 MG TAB 1 tab by mouth twice daily TRIMETHOPRIM-SULFAMETHOXAZOLE 48758095721 No Longer Active Nadir Hector MD Active CALCIUM + D 600-200 MG-UNIT TABS 1 TABLET TWO TIMES A DAY CALCIUM CARBONATE-VITAMIN D 54046363313 Active Ro Yang RN Active METOPROLOL SUCCINATE 25 MG [id number] 1 QAM METOPROLOL SUCCINATE 43483647027 Active Nadir Hector MD Active AMARYL 4 MG TABS 1 QD GLIMEPIRIDE 12119006987 Active Nadir Hector MD Active LOVASTATIN 40 MG TABS 1 QD LOVASTATIN 82885263006 Active Nadir Hector MD Active GLUCOPHAGE 1000 MG TABS 1 TABLET TWO TIMES A DAY METFORMIN HCL 55198245696 Active Nadir Hector MD Active MAXZIDE-25 37.5-25 MG TABS 1 QD TRIAMTERENE-HCTZ 29435616847 Active Nadir Hector MD Active ACCUPRIL 40 MG TABS 1 QD QUINAPRIL HCL 70916983330 Active Nadir Hector MD Active BACTRIM DS 800-160 MG TAB 1 tab by mouth twice daily BACTRIM DS 800-160 MG TAB TRIMETHOPRIM-SULFAMETHOXAZOLE Inactive ACTOS 45 MG TABS 1 QD ACTOS 45 MG TABS 533910 PIOGLITAZONE HCL Inactive LORTAB 5-500 MG TABS 1 BY MOUTH Q6H NEEDED LORTAB 5-500 MG TABS HYDROCODONE-ACETAMINOPHEN Inactive AMLODIPINE BESYLATE 5 MG TABS 1 1/2 TABLET DAILY AMLODIPINE BESYLATE 5 MG TABS 032220 AMLODIPINE BESYLATE Inactive ONGLYZA 5 MG TABS 1 QAM ONGLYZA 5 MG TABS SAXAGLIPTIN HCL Inactive FLEXERIL 10 MG TABS 1/2 TO 1 TABLET Q12H NEEDED FLEXERIL 10 MG TABS CYCLOBENZAPRINE HCL Inactive CIPRO 250 MG TABS TAKE ONE TABLET BY MOUTH TWICE DAILY FOR 5 DAYS CIPRO 250 MG TABS 243764 CIPROFLOXACIN HCL Inactive BACTRIM DS 800-160 MG TABS TAKE ONE TABLET BY MOUTH TWICE DAILY FOR 7 DAYS BACTRIM DS 800-160 MG TABS SULFAMETHOXAZOLE-TRIMETHOPRIM Inactive BACTRIM DS 800-160 MG TABS one tablet twice a day for seven days BACTRIM DS 800-160 MG TABS SULFAMETHOXAZOLE-TRIMETHOPRIM Inactive MACROBID 100 MG CAP 1 cap by mouth twice daily MACROBID 100 MG CAP 852392 NITROFURANTOIN MONOHYD MACRO Inactive JANUVIA 100 MG TABS Take 1 tab daily JANUVIA 100 MG TABS SITAGLIPTIN PHOSPHATE Inactive MACRODANTIN 100 MG CAPS 1 capsule by mouth twice daily for seven days MACRODANTIN 100 MG CAPS 248233 NITROFURANTOIN MACROCRYSTAL Inactive Advance Directives Directive Description Start Date PERMISSION TO SHARE Immunizations Vaccine Administration Date Value Standard Description pneumococcal immunization administered Pneumovax 23 [CVX33] pneumococcal polysaccharide vaccine, 23 valent Seasonal influenza vaccine, injectable, containing preservative, for > 3 years old (Afluria, FluLaval, Fluzone, Fluvirin, Fluarix, Agriflu(>=18 yo)) Fluzone (>3 yrs.) [[id number]] Influenza, seasonal, injectable Vital Signs Date Name [...] Panel - Chemistry sodium, serum 138 mmol/L 132-530 9715/06/05 potassium, serum 4.6 mmol/L 3.5-5.2 chloride, serum 103 mmol/L 98-107 carbon dioxide, venous blood 24.9 mmol/L 21.0-32.0 blood glucose 85 mg/dL 65-110 calcium, serum 9.1 mg/dL 8.5-10.1 urea nitrogen, blood 17 mg/dL 7-18 creatinine, serum 0.90 mg/dL 0.60-1.30 sodium, serum 139 mmol/L 613-116 7971/09/05 potassium, serum 4.1 mmol/L 3.5-5.2 chloride, serum 103 mmol/L 98-107 carbon dioxide, venous blood 29.8 mmol/L 21.0-32.0 blood glucose 81 mg/dL 65-110 calcium, serum 8.9 mg/dL 8.5-10.1 urea nitrogen, blood 16 mg/dL 7-18 creatinine, serum 1.10 mg/dL 0.60-1.30 Lab Report: CBC, Basic Metabolic Panel, HGBA1C, Lipid Panel - Chemistry sodium, serum 137 mmol/L 272-015 7982/01/09 potassium, serum 4.3 mmol/L 3.5-5.2 chloride, serum 99 mmol/L 98-107 carbon dioxide, venous blood 28.4 mmol/L 21.0-32.0 blood glucose 131 mg/dL 65-110 calcium, serum 9.7 mg/dL 8.5-10.1 urea nitrogen, blood 19 mg/dL 7-18 creatinine, serum 0.80 mg/dL 0.60-1.30 hemoglobin A1C, blood, as % of total hemoglobin 7.0 % 4.3-6.0 cholesterol, serum 156 mg/dL 749-134 4650/01/09 triglyceride, serum, fasting 168 mg/dL 30-200 HDL [...] Yes Encounters Code Encounter Date Provider Facility CPT-51858 Level 3 Est. Patient 16:41:34 CDT Nadir Hector MD [facility] CPT-86836 Level 4 Est. Patient 13:54:35 DIGITAL ACCOUNT SUPERVISOR Nadir Hector MD [facility] CPT-13341 Level 3 Est. Patient 15:51:21 CDT Nadir Hector MD [facility] CPT-18961 Level 4 New Patient 15:58:26 CDT Catalino Irene MD [facility] CPT-71145 Level 4 Est. Patient 15:42:38 DIGITAL ACCOUNT SUPERVISOR Nadir Hector MD [facility] Procedures Code Procedure Name Date Entry Date Standard Description CPT-16116 Administration 2+ single or combination vaccines inc oral 14:01:24 DIGITAL ACCOUNT SUPERVISOR CPT-85775 Administration single or combination vaccine inc oral 14 :01:24 DIGITAL ACCOUNT SUPERVISOR CPT-95388 Influenza High Dose age 65+ 14:01:24 DIGITAL ACCOUNT SUPERVISOR CPT-02993 Pneumovax 14:01:24 DIGITAL ACCOUNT SUPERVISOR CPT-06355 Venipuncture Draw Fee 10:36:48 CDT CPT-000 Give Appropriate Flu Vaccine 15:20:11 DIGITAL ACCOUNT SUPERVISOR CPT-67357 Administration single or combination vaccine inc oral 15 :50:33 DIGITAL ACCOUNT SUPERVISOR CPT-19716 Influenza High Dose age 65+ 15:50:33 DIGITAL ACCOUNT SUPERVISOR CPT-48572 LS spine AP and Lat 15:30:05 DIGITAL ACCOUNT SUPERVISOR CPT-79915 Hip comp min 2V 15:30:05 DIGITAL ACCOUNT SUPERVISOR CPT-36545 Postop F/U Visit 17:28:18 CDT CPT-OV Office Visit 15:04:38 CDT CPT-72415 Bladder Scan 15:58:26 CDT CPT-80900 Cystoscopy 15:58:26 CDT CPT-OV Office Visit 16:15:09 CDT CPT-000 Give Appropriate Flu Vaccine 16:33:10 DIGITAL ACCOUNT SUPERVISOR CPT-18828 Administration single or combination vaccine inc oral 19 :21:12 DIGITAL ACCOUNT SUPERVISOR CPT-03372 Influenza split virus > age 3 19:21:12 DIGITAL ACCOUNT SUPERVISOR
--- OUTSIDE RECORDS SUMMARY | 2017-11-11 07:48 | XMS REPORT | Clinical Summary ---
Author Author Admin, IMTIAZ Organization [facility] Address Unknown Phone Unavailable Allergies, [...] general medical examination at a [facility] care facility PERIPHERAL NEUROPATHY 356.9 [...] MG ORAL TABS 1 daily SITAGLIPTIN PHOSPHATE 51241819341 Active Nadir Hector MD Active GLUCOTROL XL 5 MG [id number] one tablet daily GLIPIZIDE 30564363488 No Longer Active Nadir Hector MD Active BACTRIM DS 800-160 MG TABS 1 po BID x 7 days SULFAMETHOXAZOLE-TRIMETHOPRIM 67632060738 No Longer Active Jamal Burrell MD Active FOSAMAX 70 MG TABS 1 po qweek. Take 30min prior to first food/drink. Avoid lying down x 1 hour. ALENDRONATE SODIUM 47973255944 Active Nadir Hector MD Active AMOXICILLIN 500 MG CAPS 2 po BID x 10 days AMOXICILLIN 13303705435 No Longer Active Nadir Hector MD Active JANUVIA 100 MG TABS 1 tablet by mouth daily SITAGLIPTIN PHOSPHATE 05940281698 No Longer Active Nadir Hector MD Active JANUVIA 100 MG TABS Take 1 tab daily SITAGLIPTIN PHOSPHATE 14095414118 No Longer Active Sharon Nuñez Active MACROBID 100 MG CAP 1 cap by mouth twice daily NITROFURANTOIN MONOHYD MACRO 42443384221 No Longer Active Crystal Fernández APRN Active MACRODANTIN 100 MG CAPS 1 capsule by mouth twice daily for seven days NITROFURANTOIN MACROCRYSTAL 34872521212 No Longer Active Ro Yang RN Active BACTRIM DS 800-160 MG TABS one tablet twice a day for seven days SULFAMETHOXAZOLE-TRIMETHOPRIM 09320698172 No Longer Active Sancho HEMANTH Camejo Active BACTRIM DS 800-160 MG TABS TAKE ONE TABLET BY MOUTH TWICE DAILY FOR 7 DAYS SULFAMETHOXAZOLE-TRIMETHOPRIM 69771641690 No Longer Active Viviana Lal RN Active CIPRO 250 MG TABS TAKE ONE TABLET BY MOUTH TWICE DAILY FOR 5 DAYS CIPROFLOXACIN HCL 54141774324 No Longer Active Viviana Lal RN Active FLEXERIL 10 MG TABS 1/2 TO 1 TABLET Q12H NEEDED CYCLOBENZAPRINE HCL 35457901692 No Longer Active Viviana Lal RN Active AMLODIPINE BESYLATE 5 MG TABS 1 1/2 daily AMLODIPINE BESYLATE 68249768455 Active Nadir Hector MD Active ONGLYZA 5 MG TABS 1 QAM SAXAGLIPTIN HCL 09671744665 No Longer Active Nadir Hector MD Active AMLODIPINE BESYLATE 5 MG TABS 1 1/2 TABLET DAILY AMLODIPINE BESYLATE 40734461344 No Longer Active Nadir Hector MD Active LORTAB 5-500 MG TABS 1 BY MOUTH Q6H NEEDED HYDROCODONE- ACETAMINOPHEN 11092792690 No Longer Active Nadir Hector MD Active ACTOS 45 MG TABS 1 QD PIOGLITAZONE HCL 29826335710 No Longer Active Nadir Hector MD Active BACTRIM DS 800-160 MG TAB 1 tab by mouth twice daily TRIMETHOPRIM-SULFAMETHOXAZOLE 34593058842 No Longer Active Nadir Hector MD Active CALCIUM + D 600-200 MG-UNIT TABS 1 TABLET TWO TIMES A DAY CALCIUM CARBONATE-VITAMIN D 95948110391 Active Ro Trey CHAMPION Active METOPROLOL SUCCINATE 25 MG [id number] 1 QAM METOPROLOL SUCCINATE 48601384582 Active Nadir Hector MD Active AMARYL 4 MG TABS 1 QD GLIMEPIRIDE 15711753665 Active Nadir Hector MD Active LOVASTATIN 40 MG TABS 1 QD LOVASTATIN 84987507809 Active Nadir Hector MD Active GLUCOPHAGE 1000 MG TABS 1 TABLET TWO TIMES A DAY METFORMIN HCL 48367278774 Active Nadir Hector MD Active MAXZIDE-25 37.5-25 MG TABS 1 QD TRIAMTERENE-HCTZ 73217347618 Active Nadir Hector MD Active ACCUPRIL 40 MG TABS 1 QD QUINAPRIL HCL 88452384804 Active Nadir Hector MD Active BACTRIM DS 800-160 MG TAB 1 tab by mouth twice daily BACTRIM DS 800-160 MG TAB TRIMETHOPRIM-SULFAMETHOXAZOLE Inactive ACTOS 45 MG TABS 1 QD ACTOS 45 MG TABS 388868 PIOGLITAZONE HCL Inactive LORTAB 5-500 MG TABS 1 BY MOUTH Q6H NEEDED LORTAB 5-500 MG TABS HYDROCODONE-ACETAMINOPHEN Inactive AMLODIPINE BESYLATE 5 MG TABS 1 1/2 TABLET DAILY AMLODIPINE BESYLATE 5 MG TABS 954212 AMLODIPINE BESYLATE Inactive ONGLYZA 5 MG TABS [...] mouth twice daily MACROBID 100 MG CAP 062845 NITROFURANTOIN MONOHYD MACRO Inactive JANUVIA 100 MG TABS Take 1 tab daily JANUVIA 100 MG TABS SITAGLIPTIN PHOSPHATE Inactive GLUCOTROL XL 5 MG [id number] one tablet daily GLUCOTROL XL 5 MG [id number] GLIPIZIDE Inactive MACRODANTIN 100 MG CAPS 1 capsule by mouth twice daily for seven days MACRODANTIN 100 MG CAPS 374385 NITROFURANTOIN MACROCRYSTAL Inactive AMOXICILLIN 500 MG CAPS 2 po BID x 10 days AMOXICILLIN 500 MG CAPS 585482 AMOXICILLIN Inactive BACTRIM DS 800-160 MG TABS [...] Fluvirin, Fluarix, Agriflu(>=18 yo)) Fluzone (>3 yrs.) [[id number]] Influenza, seasonal, injectable Vital Signs Date Name [...] 4.5 mmol/L 3.5-5.2 sodium, serum 140 mmol/L 988-145 7672/07/23 urea nitrogen, blood 19 mg/dL 7-18 creatinine, [...] Negative Encounters Code Encounter Date Provider Facility CPT-75960 Level 3 Est. Patient 16:43:04 INTERNET SALES MANAGER Nadir Hector MD [facility] CPT-16339 Level 4 Est. Patient 14:21:01 INTERNET SALES MANAGER Nadir Hector MD [facility] CPT-64026 Level 3 Est. Patient 16:41:34 CDT Nadir Hector MD [facility] CPT-37930 Level 4 Est. Patient 13:54:35 INTERNET SALES MANAGER Nadir Hector MD [facility] CPT-03530 Level 3 Est. Patient 15:51:21 CDT Nadir Hector MD [facility] CPT-18284 Level 4 New Patient 15:58:26 CDT Catalino Irene MD [facility] CPT-07932 Level 4 Est. Patient 15:42:38 INTERNET SALES MANAGER Nadir Hector MD [facility] Procedures Code Procedure Name Date Entry Date Standard Description CPT-64507 Bone Density 08:41:23 INTERNET SALES MANAGER CPT-000 Give Appropriate Flu Vaccine 13:54:35 INTERNET SALES MANAGER CPT-000 Give Pneumovax 13:54:35 INTERNET SALES MANAGER CPT-91290 Administration 2+ single or combination vaccines inc oral 14:01:24 INTERNET SALES MANAGER CPT-84135 Administration single or combination vaccine inc oral 14 :01:24 INTERNET SALES MANAGER CPT-33660 Influenza High Dose age 65+ 14:01:24 INTERNET SALES MANAGER CPT-47143 Pneumovax 14:01:24 INTERNET SALES MANAGER CPT-38339 Venipuncture Draw Fee 10:36:48 CDT CPT-000 Give Appropriate Flu Vaccine 15:20:11 INTERNET SALES MANAGER CPT-79324 Administration single or combination vaccine inc oral 15 :50:33 INTERNET SALES MANAGER CPT-61070 Influenza High Dose age 65+ 15:50:33 INTERNET SALES MANAGER CPT-95972 LS spine AP and Lat 15:30:05 INTERNET SALES MANAGER CPT-62354 Hip comp min 2V 15:30:05 INTERNET SALES MANAGER CPT-66249 Postop F/U Visit 17:28:18 CDT CPT-OV Office Visit 15:04:38 CDT CPT-87611 Bladder Scan 15:58:26 CDT CPT-34387 Cystoscopy 15:58:26 CDT CPT-OV Office Visit 16:15:09 CDT CPT-000 Give Appropriate Flu Vaccine 16:33:10 INTERNET SALES MANAGER CPT-63919 Administration single or combination vaccine inc oral 19 :21:12 INTERNET SALES MANAGER CPT-53823 Influenza split virus > age 3 19:21:12 INTERNET SALES MANAGER
--- OUTSIDE RECORDS SUMMARY | 2017-11-11 07:49 | XMS REPORT | Clinical Summary ---
[...] MD Routine general medical examination at a [facility] care facility PERIPHERAL NEUROPATHY 356.9 Active [...] lying down x 1 hour. ALENDRONATE SODIUM 29867113827 Active Nadir Hector MD Active AMOXICILLIN 500 MG CAPS 2 po BID x 10 days AMOXICILLIN 01815937730 No Longer Active Nadir Hector MD Active GLUCOTROL XL 5 MG [id number] one tablet daily GLIPIZIDE 93198804150 Active Nadir Hector MD Active JANUVIA 100 MG TABS 1 tablet by mouth daily SITAGLIPTIN PHOSPHATE 65395195734 No Longer Active Nadir Hector MD Active JANUVIA 100 MG TABS Take 1 tab daily SITAGLIPTIN PHOSPHATE 72389889260 No Longer Active Sharon Nuñez Active MACROBID 100 MG CAP 1 cap by mouth twice daily NITROFURANTOIN MONOHYD MACRO 95487231197 No Longer Active Crystal Fernández APRN Active MACRODANTIN 100 MG CAPS 1 capsule by mouth twice daily for seven days NITROFURANTOIN MACROCRYSTAL 76156531544 No Longer Active Ro Trey RN Active BACTRIM DS 800-160 MG TABS one tablet twice a day for seven days SULFAMETHOXAZOLE-TRIMETHOPRIM 99331649437 No Longer Active HEMANTH Griffin Active BACTRIM DS 800-160 MG TABS TAKE ONE TABLET BY MOUTH TWICE DAILY FOR 7 DAYS SULFAMETHOXAZOLE-TRIMETHOPRIM 38530050295 No Longer Active Viviana Lal RN Active CIPRO 250 MG TABS TAKE ONE TABLET BY MOUTH TWICE DAILY FOR 5 DAYS CIPROFLOXACIN HCL 88778413493 No Longer Active Viviana Lal RN Active FLEXERIL 10 MG TABS 1/2 TO 1 TABLET Q12H NEEDED CYCLOBENZAPRINE HCL 17298783084 No Longer Active Viviana Lal RN Active AMLODIPINE BESYLATE 5 MG TABS 1 1/2 daily AMLODIPINE BESYLATE 46228423631 Active Nadir Hector MD Active ONGLYZA 5 MG TABS 1 QAM SAXAGLIPTIN HCL 93224911279 No Longer Active Nadir Hector MD Active AMLODIPINE BESYLATE 5 MG TABS 1 1/2 TABLET DAILY AMLODIPINE BESYLATE 10505003178 No Longer Active Nadir Hector MD Active LORTAB 5-500 MG TABS 1 BY MOUTH Q6H NEEDED HYDROCODONE- ACETAMINOPHEN 80921168410 No Longer Active Nadir Hector MD Active ACTOS 45 MG TABS 1 QD PIOGLITAZONE HCL 90180448691 No Longer Active Nadir Hector MD Active BACTRIM DS 800-160 MG TAB 1 tab by mouth twice daily TRIMETHOPRIM-SULFAMETHOXAZOLE 43192032805 No Longer Active Nadir Hector MD Active CALCIUM + D 600-200 MG-UNIT TABS 1 TABLET TWO TIMES A DAY CALCIUM CARBONATE-VITAMIN D 53459295850 Active Ro Yang RN Active METOPROLOL SUCCINATE 25 MG [id number] 1 QAM METOPROLOL SUCCINATE 00935551264 Active Nadir Hector MD Active AMARYL 4 MG TABS 1 QD GLIMEPIRIDE 85452075028 Active Nadir Hector MD Active LOVASTATIN 40 MG TABS 1 QD LOVASTATIN 12197227288 Active Nadir Hector MD Active GLUCOPHAGE 1000 MG TABS 1 TABLET TWO TIMES A DAY METFORMIN HCL 61192497215 Active Nadir Hector MD Active MAXZIDE-25 37.5-25 MG TABS 1 QD TRIAMTERENE-HCTZ 26605174125 Active Nadir Hector MD Active ACCUPRIL 40 MG TABS 1 QD QUINAPRIL HCL 18992846501 Active Nadir Hector MD Active BACTRIM DS 800-160 MG TAB 1 tab by mouth twice daily BACTRIM DS 800-160 MG TAB TRIMETHOPRIM-SULFAMETHOXAZOLE Inactive ACTOS 45 MG TABS 1 QD ACTOS 45 MG TABS 809027 PIOGLITAZONE HCL Inactive LORTAB 5-500 MG TABS 1 BY MOUTH Q6H NEEDED LORTAB 5-500 MG TABS HYDROCODONE-ACETAMINOPHEN Inactive AMLODIPINE BESYLATE 5 MG TABS 1 1/2 TABLET DAILY AMLODIPINE BESYLATE 5 MG TABS 554456 AMLODIPINE BESYLATE Inactive ONGLYZA 5 MG TABS 1 QAM ONGLYZA 5 MG TABS SAXAGLIPTIN HCL Inactive FLEXERIL 10 MG TABS 1/2 TO 1 TABLET Q12H NEEDED FLEXERIL 10 MG TABS CYCLOBENZAPRINE HCL Inactive CIPRO 250 MG TABS TAKE ONE TABLET BY MOUTH TWICE DAILY FOR 5 DAYS CIPRO 250 MG TABS 991295 CIPROFLOXACIN HCL Inactive BACTRIM DS 800-160 MG TABS TAKE ONE TABLET BY MOUTH TWICE DAILY FOR 7 DAYS BACTRIM DS 800-160 MG TABS SULFAMETHOXAZOLE-TRIMETHOPRIM Inactive BACTRIM DS 800-160 MG TABS one tablet twice a day for seven days BACTRIM DS 800-160 MG TABS SULFAMETHOXAZOLE-TRIMETHOPRIM Inactive MACROBID 100 MG CAP 1 cap by mouth twice daily MACROBID 100 MG CAP 274426 NITROFURANTOIN MONOHYD MACRO Inactive JANUVIA 100 MG TABS Take 1 tab daily JANUVIA 100 MG TABS SITAGLIPTIN PHOSPHATE Inactive MACRODANTIN 100 MG CAPS 1 capsule by mouth twice daily for seven days MACRODANTIN 100 MG CAPS 108623 NITROFURANTOIN MACROCRYSTAL Inactive AMOXICILLIN 500 MG CAPS 2 po BID x 10 days AMOXICILLIN 500 MG CAPS 637850 AMOXICILLIN Inactive Advance Directives Directive Description Start Date PERMISSION TO SHARE Immunizations Vaccine Administration Date Value Standard Description pneumococcal immunization administered Pneumovax 23 [CVX33] pneumococcal polysaccharide vaccine, 23 valent Seasonal influenza vaccine, injectable, containing preservative, for > 3 years old (Afluria, FluLaval, Fluzone, Fluvirin, Fluarix, Agriflu(>=18 yo)) Fluzone (>3 yrs.) [[id number]] Influenza, seasonal, injectable Vital Signs Date Name [...] HGBA1C - Chemistry sodium, serum 140 mmol/L 880-832 3033/07/23 potassium, serum 4.5 mmol/L 3.5-5.2 chloride, serum [...] 4.3-6.0 Encounters Code Encounter Date Provider Facility CPT-05834 Level 4 Est. Patient 14:21:01 MEDICAL VIDEOGRAPHER Nadir Hector MD [facility] CPT-24126 Level 3 Est. Patient 16:41:34 CDT Nadir Hector MD [facility] CPT-97222 Level 4 Est. Patient 13:54:35 MEDICAL VIDEOGRAPHER Nadir Hector MD [facility] CPT-47445 Level 3 Est. Patient 15:51:21 CDT Nadir Hector MD [facility] CPT-17585 Level 4 New Patient 15:58:26 CDT Catalino Irene MD [facility] CPT-25201 Level 4 Est. Patient 15:42:38 MEDICAL VIDEOGRAPHER Nadir Hector MD [facility] Procedures Code Procedure Name Date Entry Date Standard Description CPT-70514 Bone Density 08:41:23 MEDICAL VIDEOGRAPHER CPT-000 Give Appropriate Flu Vaccine 13:54:35 MEDICAL VIDEOGRAPHER CPT-000 Give Pneumovax 13:54:35 MEDICAL VIDEOGRAPHER CPT-70334 Administration 2+ single or combination vaccines inc oral 14:01:24 MEDICAL VIDEOGRAPHER CPT-34044 Administration single or combination vaccine inc oral 14 :01:24 MEDICAL VIDEOGRAPHER CPT-31317 Influenza High Dose age 65+ 14:01:24 MEDICAL VIDEOGRAPHER CPT-26326 Pneumovax 14:01:24 MEDICAL VIDEOGRAPHER CPT-65967 Venipuncture Draw Fee 10:36:48 CDT CPT-000 Give Appropriate Flu Vaccine 15:20:11 MEDICAL VIDEOGRAPHER CPT-53685 Administration single or combination vaccine inc oral 15 :50:33 MEDICAL VIDEOGRAPHER CPT-75388 Influenza High Dose age 65+ 15:50:33 MEDICAL VIDEOGRAPHER CPT-71398 LS spine AP and Lat 15:30:05 MEDICAL VIDEOGRAPHER CPT-42840 Hip comp min 2V 15:30:05 MEDICAL VIDEOGRAPHER CPT-78289 Postop F/U Visit 17:28:18 CDT CPT-OV Office Visit 15:04:38 CDT CPT-01497 Bladder Scan 15:58:26 CDT CPT-10348 Cystoscopy 15:58:26 CDT CPT-OV Office Visit 16:15:09 CDT CPT-000 Give Appropriate Flu Vaccine 16:33:10 MEDICAL VIDEOGRAPHER CPT-01966 Administration single or combination vaccine inc oral 19 :21:12 MEDICAL VIDEOGRAPHER CPT-72715 Influenza split virus > age 3 19:21:12 MEDICAL VIDEOGRAPHER
--- OUTSIDE RECORDS SUMMARY | 2017-11-11 07:49 | XMS REPORT | Clinical Summary ---
Author Author Admin, IMTIAZ Organization [facility] Address Unknown Phone Unavailable Allergies, Adverse Reactions, [...] Routine general medical examination at a [facility] care facility PERIPHERAL NEUROPATHY 356.9 Active [...] 1 po BID x 7 days SULFAMETHOXAZOLE-TRIMETHOPRIM 30325348667 Active Jamal Burrell MD Active FOSAMAX 70 MG TABS 1 po qweek. Take 30min prior to first food/drink. Avoid lying down x 1 hour. ALENDRONATE SODIUM 49170663940 Active Nadir Hector MD Active AMOXICILLIN 500 MG CAPS 2 po BID x 10 days AMOXICILLIN 17946746120 No Longer Active Nadir Hector MD Active GLUCOTROL XL 5 MG [id number] one tablet daily GLIPIZIDE 81055155128 Active Nadir Hector MD Active JANUVIA 100 MG TABS 1 tablet by mouth daily SITAGLIPTIN PHOSPHATE 01215733913 No Longer Active Nadir Hector MD Active JANUVIA 100 MG TABS Take 1 tab daily SITAGLIPTIN PHOSPHATE 89717217734 No Longer Active Sharon Nuñez Active MACROBID 100 MG CAP 1 cap by mouth twice daily NITROFURANTOIN MONOHYD MACRO 43099989320 No Longer Active Crystal Fernández APRN Active MACRODANTIN 100 MG CAPS 1 capsule by mouth twice daily for seven days NITROFURANTOIN MACROCRYSTAL 46617355524 No Longer Active Ro Yang RN Active BACTRIM DS 800-160 MG TABS one tablet twice a day for seven days SULFAMETHOXAZOLE-TRIMETHOPRIM 09402800800 No Longer Active Sancho Rhodeseau HEMANTH Active BACTRIM DS 800-160 MG TABS TAKE ONE TABLET BY MOUTH TWICE DAILY FOR 7 DAYS SULFAMETHOXAZOLE-TRIMETHOPRIM 73090703587 No Longer Active Viviana Lal RN Active CIPRO 250 MG TABS TAKE ONE TABLET BY MOUTH TWICE DAILY FOR 5 DAYS CIPROFLOXACIN HCL 63534327061 No Longer Active Viviana Lal RN Active FLEXERIL 10 MG TABS 1/2 TO 1 TABLET Q12H NEEDED CYCLOBENZAPRINE HCL 66885543066 No Longer Active Viviana Lal RN Active AMLODIPINE BESYLATE 5 MG TABS 1 1/2 daily AMLODIPINE BESYLATE 31253397449 Active Nadir Hector MD Active ONGLYZA 5 MG TABS 1 QAM SAXAGLIPTIN HCL 01368795663 No Longer Active Nadir Hector MD Active AMLODIPINE BESYLATE 5 MG TABS 1 1/2 TABLET DAILY AMLODIPINE BESYLATE 84762319179 No Longer Active Nadir Hector MD Active LORTAB 5-500 MG TABS 1 BY MOUTH Q6H NEEDED HYDROCODONE- ACETAMINOPHEN 93612519314 No Longer Active Nadir Hector MD Active ACTOS 45 MG TABS 1 QD PIOGLITAZONE HCL 42595481647 No Longer Active Nadir Hector MD Active BACTRIM DS 800-160 MG TAB 1 tab by mouth twice daily TRIMETHOPRIM-SULFAMETHOXAZOLE 29878055138 No Longer Active Nadir Hector MD Active CALCIUM + D 600-200 MG-UNIT TABS 1 TABLET TWO TIMES A DAY CALCIUM CARBONATE-VITAMIN D 56905253128 Active Ro Yang RN Active METOPROLOL SUCCINATE 25 MG [id number] 1 QAM METOPROLOL SUCCINATE 33326684629 Active Nadir Hector MD Active AMARYL 4 MG TABS 1 QD GLIMEPIRIDE 82317883883 Active Nadir Hector MD Active LOVASTATIN 40 MG TABS 1 QD LOVASTATIN 50898093058 Active Nadir Hector MD Active GLUCOPHAGE 1000 MG TABS 1 TABLET TWO TIMES A DAY METFORMIN HCL 14212923031 Active Nadir Hector MD Active MAXZIDE-25 37.5-25 MG TABS 1 QD TRIAMTERENE-HCTZ 20322676895 Active Nadir Hector MD Active ACCUPRIL 40 MG TABS 1 QD QUINAPRIL HCL 51692203098 Active Nadir Hector MD Active BACTRIM DS 800-160 MG TAB 1 tab by mouth twice daily BACTRIM DS 800-160 MG TAB TRIMETHOPRIM-SULFAMETHOXAZOLE Inactive ACTOS 45 MG TABS 1 QD ACTOS 45 MG TABS 094254 PIOGLITAZONE HCL Inactive LORTAB 5-500 MG TABS 1 BY MOUTH Q6H NEEDED LORTAB 5-500 MG TABS HYDROCODONE-ACETAMINOPHEN Inactive AMLODIPINE BESYLATE 5 MG TABS 1 1/2 TABLET DAILY AMLODIPINE BESYLATE 5 MG TABS 443482 AMLODIPINE BESYLATE Inactive ONGLYZA 5 MG TABS 1 QAM ONGLYZA 5 MG TABS SAXAGLIPTIN HCL Inactive FLEXERIL 10 MG TABS 1/2 TO 1 TABLET Q12H NEEDED FLEXERIL 10 MG TABS CYCLOBENZAPRINE HCL Inactive CIPRO 250 MG TABS TAKE ONE TABLET BY MOUTH TWICE DAILY FOR 5 DAYS CIPRO 250 MG TABS 748612 CIPROFLOXACIN HCL Inactive BACTRIM DS 800-160 MG TABS TAKE ONE TABLET BY MOUTH TWICE DAILY FOR 7 DAYS BACTRIM DS 800-160 MG TABS SULFAMETHOXAZOLE-TRIMETHOPRIM Inactive BACTRIM DS 800-160 MG TABS one tablet twice a day for seven days BACTRIM DS 800-160 MG TABS SULFAMETHOXAZOLE-TRIMETHOPRIM Inactive MACROBID 100 MG CAP 1 cap by mouth twice daily MACROBID 100 MG CAP 602330 NITROFURANTOIN MONOHYD MACRO Inactive JANUVIA 100 MG TABS Take 1 tab daily JANUVIA 100 MG TABS SITAGLIPTIN PHOSPHATE Inactive MACRODANTIN 100 MG CAPS 1 capsule by mouth twice daily for seven days MACRODANTIN 100 MG CAPS 713618 NITROFURANTOIN MACROCRYSTAL Inactive AMOXICILLIN 500 MG CAPS 2 po BID x 10 days AMOXICILLIN 500 MG CAPS 557512 AMOXICILLIN Inactive Advance Directives Directive Description Start Date PERMISSION TO SHARE Immunizations Vaccine Administration Date Value Standard Description pneumococcal immunization administered Pneumovax 23 [CVX33] pneumococcal polysaccharide vaccine, 23 valent Seasonal influenza vaccine, injectable, containing preservative, for > 3 years old (Afluria, FluLaval, Fluzone, Fluvirin, Fluarix, Agriflu(>=18 yo)) Fluzone (>3 yrs.) [BOL860] Influenza, seasonal, injectable Vital Signs Date Name [...] 4.5 mmol/L 3.5-5.2 sodium, serum 140 mmol/L 617-357 4750/07/23 alkaline phosphatase, serum 133 U/L 50-136 aspartate aminotransferase (SGOT), serum 18 U/L 15-37 alanine aminotransferase (SGPT), serum 34 U/L 12-78 creatinine, serum 0.80 mg/dL 0.60-1.30 urea nitrogen, blood 19 mg/dL 7-18 calcium, serum 9.4 mg/dL 8.5-10.1 bilirubin, serum, [...] 5.0-8.5 Encounters Code Encounter Date Provider Facility CPT-61175 Level 4 Est. Patient 14:21:01 CONSOLE ASSEMBLER Nadir Hector MD [facility] CPT-45903 Level 3 Est. Patient 16:41:34 CDT Nadir Hector MD [facility] CPT-01389 Level 4 Est. Patient 13:54:35 CONSOLE ASSEMBLER Nadir Hector MD [facility] CPT-34275 Level 3 Est. Patient 15:51:21 CDT Nadir Hector MD [facility] CPT-77243 Level 4 New Patient 15:58:26 CDT Catalino Irene MD [facility] CPT-05074 Level 4 Est. Patient 15:42:38 CONSOLE ASSEMBLER Nadir Hector MD [facility] Procedures Code Procedure Name Date Entry Date Standard Description CPT-78595 Bone Density 08:41:23 CONSOLE ASSEMBLER CPT-000 Give Appropriate Flu Vaccine 13:54:35 CONSOLE ASSEMBLER CPT-000 Give Pneumovax 13:54:35 CONSOLE ASSEMBLER CPT-40583 Administration 2+ single or combination vaccines inc oral 14:01:24 CONSOLE ASSEMBLER CPT-86105 Administration single or combination vaccine inc oral 14 :01:24 CONSOLE ASSEMBLER CPT-53329 Influenza High Dose age 65+ 14:01:24 CONSOLE ASSEMBLER CPT-67381 Pneumovax 14:01:24 CONSOLE ASSEMBLER CPT-93848 Venipuncture Draw Fee 10:36:48 CDT CPT-000 Give Appropriate Flu Vaccine 15:20:11 [employer]SOLE ASSEMBLER CPT-39883 Administration single or combination vaccine inc oral 15 :50:33 CONSOLE ASSEMBLER CPT-71967 Influenza High Dose age 65+ 15:50:33 CONSOLE ASSEMBLER CPT-14650 LS spine AP and Lat 15:30:05 CONSOLE ASSEMBLER CPT-63248 Hip comp min 2V 15:30:05 CONSOLE ASSEMBLER CPT-99307 Postop F/U Visit 17:28:18 CDT CPT-OV Office Visit 15:04:38 CDT CPT-74106 Bladder Scan 15:58:26 CDT CPT-91600 Cystoscopy 15:58:26 CDT CPT-OV Office Visit 16:15:09 CDT CPT-000 Give Appropriate Flu Vaccine 16:33:10 CONSOLE ASSEMBLER CPT-60503 Administration single or combination vaccine inc oral 19 :21:[address] [facility]-88705 Influenza split virus > age 3 19:21:12 CONSOLE ASSEMBLER
[2017-11-11] MEDS ORDERED: SULF1TAB35 PO (10:25)
[2017-11-11] MEDS ORDERED: PHEN-640 PO (10:25)
[2017-11-11] MEDS ORDERED: HYOS0.3732 PO (10:25)
[2017-11-11] MEDS ORDERED: SULF1TAB34 PO (10:25)
[2017-11-11] MEDS ORDERED: ONDANSETRON 4 MG/2 ML (SDV) Z0FRAN IVP PRN (10:30)
[2017-11-11] MEDS ORDERED: morphine INJ 10 MG/ML 1ML (SYR OR VIAL) IVP PRN (10:30)
[2017-11-11 11:15] VITALS: BP 141/70
[2017-11-11] MEDS ORDERED: ACETAMINOPHEN 325 MG TABLET ONE (11:17)
[2017-11-11] MEDS ORDERED: ACETAMINOPHEN 325 MG TABLET PO ONE (11:30)
[2017-11-11 11:45] VITALS: BP 142/74
--- NOTE | 2017-11-11 14:18 | OPERATIVE REPORT ---
DATE OF SERVICE: 11/11/2017 PREOPERATIVE DIAGNOSIS: Gross hematuria, recurrent UTIs, foreign body and stones in the bladder and bilateral hydronephrosis. POSTOPERATIVE DIAGNOSIS: Gross hematuria, recurrent UTIs, foreign body and stones in the bladder and bilateral hydronephrosis. OPERATION PROCEDURE: Cystoscopy, removal of foreign body and stones from the bladder. SURGEON: Kai Walton MD. ANESTHESIA: General. COMPLICATIONS: None. DESCRIPTION OF PROCEDURE: Under satisfactory general anesthesia, the patient in lithotomy position, genitalia were prepped and draped in the usual sterile fashion. Cystoscope was introduced under vision. Again, visualized was the suture from the previous bladder suspension and the tuck at the end of it and calcification all over it, I was able to pull it free from the bladder and removed it. I carefully inspected the bladder with both lenses including the diverticulum and there was no foreign body stone visualized. It was very difficult to visualize ureteric orifices because of the diffuse cystitis, the turbid or hemorrhagic fluid from the bladder and the extensive cystitis secondary to the foreign body and the stones, I had discontinued further attempt, I just irrigated the bladder to almost clear, I removed the cystoscope. The patient tolerated the procedure well and was sent to recovery room in stable condition. PLAN: We will give her 4-week course of Bactrim first DS twice a day for two weeks and then plane twice a day for two weeks. Levbid twice a day for 10 days, Pyridium p.r.n. We will see her back in 4 weeks. Once we stabilize the bladder away from infection and hematuria, we will repeat a CT scan to check on her hydronephrosis. The plan was fully explained to the later on to the patient. Job ID: [id number] DocumentID: [id number] Dictated Date: 11/11/2017 10:19:04 Senior Financial Reporting Accountant Date: 11/11/2017 14:18:21 Dictated By: KAI WALTON MD
== END 2017-11-11 11:55 | disposition home or self-care (01) ==
LOC: SDC 06:36
PROVIDERS: ATTEND Urology
DX: R31.0 Gross hematuria (principal); N13.30 Unspecified hydronephrosis; N21.0 Calculus in bladder; T19.1XXA Foreign body in bladder, initial encounter; I10 Essential (primary) hypertension; E78.5 Hyperlipidemia, unspecified; E11.9 Type 2 diabetes mellitus without complications; E78.00 Pure hypercholesterolemia, unspecified; M81.0 Age-related osteoporosis without current pathological fracture; N32.81 Overactive bladder; Z87.440 Personal history of urinary (tract) infections; Z11.2 Encounter for screening for other bacterial diseases; Z79.84 Long term (current) use of oral hypoglycemic drugs; Z79.899 Other long term (current) drug therapy
CPT/HCPCS: 82962; 87081

== ENCOUNTER → 2017-12-16 | Outpatient (CLI) | payer MEDICARE ==
[~2017-12-16] MED LIST changes: +HYOS0.3732 PO; +METF-399 PO; -METF10002 PO; +PHEN-640 PO; +SULF1TAB34 PO; +SULF1TAB35 PO
--- NOTE | 2017-12-16 08:53 | Diagnostic Imaging Report ---
PROCEDURE: CT abdomen and pelvis without contrast. TECHNIQUE: Multiple contiguous axial images were obtained through the abdomen and pelvis without the use of intravenous contrast. INDICATION: Hematuria. COMPARISON: Comparison is made with prior CT abdomen and pelvis study from 09/28/2017. FINDINGS: The lung bases are clear. No discrete liver mass is identified. The gallbladder appears to be surgically absent. The pancreas and spleen are unremarkable. No adrenal mass is identified. A left renal cyst appears stable. Bilateral hydroureteronephrosis is again noted. No definite obstructing calculi are seen however. Aorta is calcified but nonaneurysmal. No definite central retroperitoneal or mesenteric lymphadenopathy is identified. The visualized bowel loops are normal caliber. No obstruction is seen. There is no ascites. The appendix is unremarkable. Imaging through the pelvis does show diverticulosis of the sigmoid colon but no evidence of acute diverticulitis. The bladder is similar in appearance to the prior CT. Bladder is mostly decompressed. There is some mild bladder wall thickening and nodularity. Small amount of gas within the bladder is seen which may be from recent catheterization. Clinical correlation is recommended. No bladder calculi are identified. No pelvic lymphadenopathy is seen. Bony structures are nonacute. IMPRESSION: 1. Bladder is decompressed and difficult to evaluate. There is some generalized bladder wall thickening and nodularity. In addition, there is bilateral hydroureteronephrosis without evidence of an obstructing calculus. Bladder neoplasm cannot be entirely excluded. Cystoscopy would be recommended if not already performed. 2. Uncomplicated diverticulosis. 3. Not described above, there is some fluid along the left iliopsoas suggestive of iliopsoas bursitis. Dictated by: Dictated on workstation # [id number]
== END ==
LOC: RAD 07:38
PROVIDERS: ATTEND Urology
DX: N32.89 Other specified disorders of bladder (principal); N13.30 Unspecified hydronephrosis; K57.30 Diverticulosis of large intestine without perforation or abscess without bleeding; N28.1 Cyst of kidney, acquired; R18.8 Other ascites; R31.9 Hematuria, unspecified
CPT/HCPCS: 74176